=== PATIENT | male | born 1975 | race Caucasian/White ===

== ENCOUNTER 2021-04-10 14:10 | Emergency (ER) | payer SELFPAY ==
[2021-04-10 14:20] VITALS: BP 135/82; PULSE 99; RESP 16; TEMP 36.7; O2SAT 98; BMI 38.7
== END 2021-04-10 16:00 | disposition left against medical advice (07) ==
PROVIDERS: Emergency Provider Emergency Medicine
DX: T78.40XA Allergy, unspecified, initial encounter (principal); X58.XXXA Exposure to other specified factors, initial encounter
CPT/HCPCS: 99281; 99282

== ENCOUNTER 2023-03-14 18:47 | Outpatient (REF) | payer OTHER, SELFPAY ==
--- NOTE | ~2023-03-14 | MR_ITS ---
EXAMINATION: MR WRIST WITHOUT CONTRAST, RIGHT CLINICAL INFORMATION: Right wrist pain. COMPARISON: None available. TECHNIQUE: MRI of the wrist was performed using routine sequences on a high-field scanner. FINDINGS: TRIANGULAR FIBROCARTILAGE: Intact. INTRINSIC LIGAMENTS: Intact. TENDONS/MEDIAN NERVE: Intact. ARTICULAR CARTILAGE/BONE: No acute fracture or dislocation. 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 No evidence of avascular necrosis. Intact articular cartilage. No concerning lytic or blastic osseous lesion. JOINT FLUID/SOFT TISSUES: No significant joint effusion. No abnormal soft tissue mass or fluid collection. 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 Otherwise unremarkable examination.
== END 2023-03-14 18:48 | disposition home or self-care (01) ==
LOC: HO.MRI 18:47
PROVIDERS: PCP Nurse Practitioner Family; Visit Provider Nurse Practitioner Family
DX: M25.531 Pain in right wrist (principal)
CPT/HCPCS: 73221

== ENCOUNTER 2023-07-25 10:08 | Outpatient (REF) | payer OTHER, SELFPAY ==
--- NOTE | 2023-07-25 10:12 | EMG_ITS ---
Right median and ulnar motor and sensory studies were performed. Right radial sensory study was performed and paraspinal muscles were tested with a needle. IMPRESSION: This is an unremarkable study with no evidence of median or ulnar neuropathy or radiculopathy. MD FOREST Casas/HERNAN / [id number]
== END 2023-07-25 10:09 | disposition home or self-care (01) ==
LOC: HO.NEURO 10:08
PROVIDERS: PCP Nurse Practitioner Family; Visit Provider Nurse Practitioner Family
DX: M79.621 Pain in right upper arm (principal)
CPT/HCPCS: 95886; 95909

== ENCOUNTER 2024-07-17 16:34 | Emergency (ER) | payer OTHER, SELFPAY ==
--- OUTSIDE RECORDS SUMMARY | 2024-07-17 16:37 | XMS_ITS | Continuity of Care Document ---
Author Name [facility] Organization [facility] Care Team Providers Care Assistant Health Educator Name Role Phone [facility] Unavailable Unavailable Problems Combined list of problems from Department of Defense and [facility] Affairs facilities. It does not include entries that were removed or entered in error. Problem Status Onset Date Problem Type Date of Resolution Comments Source Adjustment disorder with mixed emotional features Active Condition [facility] Adjustment reaction with mixed disturbance of emotion (SNOMED CT 83036518) Active Condition [facility] Alcohol Dependence * (ICD-9-CM 303.90/303.91) Active Condition Mar 18, 2006 Entered By: DILMA JARRELL Comment: In Remission [facility] Alcohol dependence syndrome (SNOMED CT 99076082) Active Condition [facility] Anxiety (SCT 13364920) Active Condition [facility] Asthma - currently active (SNOMED CT 063738715) Active Condition [place] Attention deficit hyperactivity disorder, predominantly inattentive type Active Condition [facility] Attn Defic w/Hyperactiv. Active Condition [facility] Poon's esophagus Active Condition [facility] Depressive disorder Active Condition [facility] Family history of diabetes mellitus Active Condition [facility] Fatty liver Active Condition [facility] Gallbladder polyp Active Condition Au g 2022 Entered By: ILDA HANSON Comment: repeat abdominal u/s March 2024 [facility] Gastroesophageal reflux disease Active Condition [facility] GERD - Gastro-Esophageal Reflux Disease (SCT 956033509) Active Condition [facility] GERD * (ICD-9-CM 530.81) Active Condition [facility] Hyperlipidemia Active Condition [facility] Hyperlipidemia (SCT 22092231) Active Condition [facility] Hyperlipidemia (SNOMED CT 93266798) Active Condition [place] Hyperlipidemia (SNOMED CT 71534936) Active Condition Apr 12, 2005 Entered By: CAITLYN JENKINS Comment: labs of 08/09 [place] INSOMNIA, unspecified (ICD-9-CM 780.52) Active Condition [facility] Major Depression, recurrent (ICD-9-CM 296.30) Active Condition [facility] Mild depression (SNOMED CT 330001662) Active Condition [facility] Ring's metatarsalgia, neuralgia, or neuroma Active Condition [facility] Obesity (SNOMED CT 957218328) Active Condition [place] Other and unspecified alcohol dependence, in remission (ICD-9-CM 303.93) Active Condition [facility] Overweight Active Condition [facility] Pain in right arm Active Condition [facility] Sleep apnea Active Condition [facility] Verruca Active Condition [facility] Cannabis dependence, episodic use Inactive Condition 01/19/2010 [facility] Leukocytosis Inactive Condition 08/10/2005Apr Entered By: CAITLYN JENKINS Comment: WBC = 19K on 04/12/05 [place] Other and unspecified alcohol dependence, episodic drinking behavior Inactive Condition 07/11/2010 [facility] Diagnosis: ICD-10-CM L60.0 Ingrowing nail Active Diagnosis [facility] Diagnosis: ICD-10-CM F90.0 Attn-defct hyperactivity disorder, predom inattentive type Active Diagnosis [facility] Diagnosis: ICD-10-CM L60.3 Nail dystrophy Active Diagnosis [facility] Diagnosis: ICD-10-CM R10.30 Lower abdominal pain, unspecified Active Diagnosis [facility] Diagnosis: ICD-10-CM D18.01 Hemangioma of skin and subcutaneous tissue Active Diagnosis [facility] Diagnosis: ICD-10-CM D48.5 Neoplasm of uncertain behavior of skin Active Diagnosis [facility] Diagnosis: ICD-10-CM Z71.89 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ed counseling Active Diagnosis [facility] Diagnosis: ICD-10-CM J06.9 Acute upper respiratory infection, unspecified Active Diagnosis [facility] Diagnosis: ICD-10-CM K21.9 Gastro-esophageal reflux disease without esophagitis Active Diagnosis [facility] Diagnosis: ICD-10-CM G47.33 Obstructive sleep apnea (adult) (pediatric) Active Diagnosis [facility] Diagnosis: ICD-10-CM K11.21 Acute sialoadenitis Active Diagnosis [facility] Diagnosis: ICD-10-CM F41.9 Anxiety disorder, unspecified Active Diagnosis [facility] Diagnosis: ICD-10-CM M79.601 Pain in right arm Active Diagnosis [facility] Diagnosis: ICD-10-CM Z04.9 Encounter for examination and observation for unsp reason Active Diagnosis [facility] Diagnosis: ICD-10-CM M77.41 Metatarsalgia, right foot Active Diagnosis [facility] Diagnosis: ICD-10-CM L71.8 Other rosacea Active Diagnosis [facility] Diagnosis: ICD-10-CM H01.004 Unspecified blepharitis left upper eyelid Active Diagnosis [facility] Diagnosis: ICD-10-CM Z46.0 Encounter for fit/adjst of spectacles and contact lenses Active Diagnosis [facility] Diagnosis: ICD-10-CM K22.70 Poon's esophagus without dysplasia Active Diagnosis [facility] Diagnosis: ICD-10-CM S66.911S Strain of unsp musc/fasc/tend at wrs/hnd lv, r hand, sequela Active Diagnosis [facility] Diagnosis: ICD-10-CM S66.911A Strain of unsp musc/fasc/tend at wrs/hnd lv, r hand, init Active Diagnosis [facility] [place] [facility] Diagnosis: ICD-10-CM J01.90 Acute sinusitis, unspecified Active Diagnosis [facility] Diagnosis: ICD-10-CM H52.223 Regular astigmatism, bilateral Active Diagnosis [facility] Diagnosis: ICD-10-CM Z56.0 Unemployment, unspecified Active Diagnosis [facility] ([id number]) Diagnosis: ICD-10-CM M25.521 Pain in right elbow Active Diagnosis [facility] [facility] Medications Combined list of outpatient medications from Department of Defense and Veterans Affairs facilities.Medications provided include 1) outpatient medications from the last 15 months, and 2) patient-reported medications. Medication Details Route Status Patient Instructions Prescription Expires Prescription Number Last Dispense Date Ordering Provider Order Date Order Qty Source AMOXICILLIN TRIHYDRATE 875MG/CLAVU LANATE K 125MG TAB TAKE 1 TABLET BY MOUTH TWICE DAILY FOR INFECTIO N ORAL 02/20/2024 [id number] MACHELLE DAVID 2023 20 [facility] AZELASTINE HCL 137MCG/SPRA Y INHL,NASAL, 30ML SPRAY 1 SPRAY INTO EACH NOSTRIL ONCE DAILY FOR SEASONAL RUNNY NOSE NASAL ACTIVE 01/01/2025 [id number] 4 LORETTA HANSON 2023 1 [facility] AZELASTINE HCL 137MCG/SPRA Y INHL,NASAL, 30ML SPRAY 1 SPRAY INTO EACH NOSTRIL ONCE DAILY FOR SEASONAL RUNNY NOSE NASAL DISCONT INUED 05/27/2024 [id number] MACHELLE DAVID 2022 1 [facility] AZITHROMYCI N 250MG TAB TAKE TWO TABLETS BY MOUTH ONCE DAILY FOR 1 DAY, THEN TAKE ONE TABLET ONCE DAILY FOR 4 DAYS ORAL 06/26/2023 [id number] 3 MACHELLE DAVID 2022 6 [facility] BUSPIRONE HCL 5MG TAB TAKE ONE-HALF TABLET BY MOUTH ONCE DAILY ORAL DISCONT INUED BY PROVIDE R 09/05/2024 [id number] 4 MATT GALVAN 2023 [facility] CETIRIZINE HCL 10MG TAB TAKE ONE TABLET BY MOUTH ONCE DAILY FOR ALLERGIE S ORAL 03/31/2024 [id number] 4 [facility]ANSON 2023 [facility] CETIRIZINE HCL 10MG TAB TAKE ONE TABLET BY MOUTH ONCE DAILY FOR ALLERGIE S ORAL 08/25/2023 [id number] 3 MACHELLE DAVID [address] [facility] CHOLECALCIF ARAM 50MCG (2,000UNIT) TAB TAKE ONE TABLET BY MOUTH ONCE DAILY FOR VITAMIN SUPPLEME NTATION ORAL 06/21/2024 [id number] 4 LORETTA HANSON [address] [address] [facility] DEXAMETHASO NE 0.1%/TOBRAM YCIN 0.3% OINT,OPH APPLY SMALL AMOUNT INTO THE LEFT EYE AT BEDTIME OPHTHA LMIC 12/26/2023 [id number] Sherwin MICHAELS [address] [facility] DEXTROMETHO RPHAN HBR 10MG/GUAIFE NESIN 100MG/5ML (AF & SF) LIQUID TAKE 5 MLS BY MOUTH EVERY 6 HOURS NEEDED FOR COUGH ORAL ACTIVE 04/30/2025 [id number] 4 MACHELLE DAVID [address] [facility] ESCITALOPRA M OXALATE 5MG TAB TAKE ONE-HALF TABLET BY MOUTH ONCE DAILY FOR 14 DAYS, THEN TAKE ONE TABLET ONCE DAILY FOR MOOD/DEP RESSION ORAL DISCONT INUED BY PROVIDE R 10/17/2023 [id number] 4 MATT GALVAN 2023 38 [facility] GUAIFENESIN 200MG TAB TAKE ONE TABLET BY MOUTH EVERY 4 HOURS NEEDED FOR CONGESTI ON ORAL 06/26/2023 [id number] 3 MACHELLE DAVID AKIKO GROSS [address] [facility] [facility] OMEPRAZOLE 20MG CAP,EC TAKE ONE CAPSULE BY MOUTH ONCE DAILY ORAL ACTIVE 11/08/2024 [id number] 4 LORETTA HANSON [address] [facility] OMEPRAZOLE 20MG CAP,EC TAKE ONE CAPSULE BY MOUTH ONCE DAILY ORAL DISCONT INUED 09/04/2023 [id number] 4 LORETTA HANSON [address] [address] [facility] OTHER CAP/TAB TAKE RACHANA WORKZ MUSHROOM COMPLEX BY MOUTH ONCE DAILY ORAL ACTIVE RAGUINMATT BAZZI D [address] [address] [facility] PROBIOTIC (CULTURELLE DIGESTIVE DAILY) CAP/TAB TAKE BY MOUTH ONCE DAILY ORAL ACTIVE MATT GALVAN D [address] [address] [facility] TAMSULOSIN HCL 0.4MG CAP TAKE ONE CAPSULE BY MOUTH ONCE DAILY FOR 10 DAYS ORAL 06/02/2024 [id number] ZEFERINO DING 2023 10 [facility] Allergies, Adverse Reactions, Alerts Combined list of allergies from Department of Defense and Veterans Affairs facilities. It does not include entries that were removed or entered in error. Substance Category Reaction Severity Reaction type Status Date Reported Comments Source CHICKEN Propensity to adverse reactions to food (finding) active 12/29/2020 [facility] EGGS Propensity to adverse reactions to substance (finding) active 12/29/2020 [facility] SHRIMP Propensity to adverse reactions to food (finding) Anxiety, Urticaria, Eruption MODERATE active 05/15/2021 [facility] Immunizations Combined list of available immunizations from the Department of Defense and Veterans Affairs facilities. Immunization Series Date Given Administered By Site Reaction Lot Number CVX Code Drug Environmental Journalist Status Comments Source INFLUENZA, INJECTABLE, QUADRIVALENT, PRESERVATIVE FREE 2023 GIANCARLO CHAMORRO LEFT DELTO ID [id number] A 150 complet ed [facility] HEP A-HEP B 2 2022 GIANCARLO CHAMORRO LEFT DELTO ID [id number] 104 complet ed [facility] HEP A-HEP B 1 2022 IGOR GRACIA HY E RIGHT DELTO ID [id number] 104 complet ed [facility] PNEUMOCOCCAL CONJUGATE PCV20, POLYSACCHARID E [id number] CONJUGATE, ADJUVANT, PF 2022 IGOR GRACIA HY E LEFT DELTO ID [id number] 216 complet ed [facility] INFLUENZA, INJECTABLE, QUADRIVALENT, PRESERVATIVE FREE 2021 ASHUTOSH RIVERA RIGHT DELTO ID [id number] 150 complet ed [facility] COVID-19 (MODERNA), MRNA, LNP-S, BIVALENT BOOSTER, PF, 50 MCG/0.5 ML OR 25MCG/0.25 ML DOSE 1 2021 229 complet ed MOD; [id number]; 3 [facility] PNEUMOCOCCAL POLYSACCHARID E [id number] 2021 33 complet ed [place] COVID-19 (MODERNA), MRNA, LNP-S, PF, 100 MCG OR 50 MCG DOSE 3 2020 207 complet ed [facility] COVID-19 (MODERNA), MRNA, LNP-S, PF, 100 MCG/0.5 ML DOSE 2 2020 207 complet ed MOD; [id number]; 1 [place] COVID-19 (MODERNA), MRNA, LNP-S, PF, 100 MCG/0.5 ML DOSE 1 2020 207 complet ed MOD; [id number]; 1 [place] TDAP 2018 NONE 115 complet ed [place] FLU,3 YRS (HISTORICAL) 2005 88 complet ed [facility] DOMIC[facility] I[facility] TD(ADULT) UNSPECIFIED FORMULATION 2005 139 complet ed [facility] PNEUMOCOCCAL REFUSED (HISTORICAL) 1999 complet ed TETANUS GIVEN 95 [place] TD(ADULT) UNSPECIFIED FORMULATION 1994 139 complet ed [facility] Results Combined list of recent chemistry, hematology and other laboratory results from Department of Defense and Veterans Affairs, ranging from 15 months to all on record, depending upon the facility. Order Name Results Value Reference Range Date Interpretation Specimen Comments Source CT/GC DNA PANEL(IN -HOUSE) NEISSERIA GONORRHOEA E DNA [PRESENCE] IN URINE BY ABELARDO WITH PROBE DETECTION NOT DETECTED 06/05 Specimen Type: URINE Comment: Test performed on the REMOTV Genexpert. A negative test results does not exclude the possibility of infection because results may be affected by improper specimen collection, concurrent antibiotic therapy, or the number of organisms in the specimen which may be below the sensitivity of the test. Ordering Provider: ILDA HANSON Report Released Date/Time: Jun 05, 2024 02:02 PM Reporting Lab: [address] [address] Performing Lab: [address] [address] [facility] CT/GC DNA PANEL(IN -HOUSE) CHLAMYDIA TRACHOMATI S DNA [PRESENCE] IN URINE BY ABELARDO WITH PROBE DETECTION NOT DETECTED 06/05 Specimen Type: URINE Comment: Test performed on the REMOTV Genexpert. A negative test results does not exclude the possibility of infection because results may be affected by improper specimen collection, concurrent antibiotic therapy, or the number of organisms in the specimen which may be below the sensitivity of the test. Ordering Provider: ILDA HANSON Report Released Date/Time: Jun 05, 2024 02:02 PM Reporting Lab: [address] [address] Performing Lab: [address] [address] [facility] [employer] PIC AUTOMATE D, URINE LEUKOCYTES [#/AREA] IN URINE SEDIMENT BY MICROSCOPY HIGH POWER FIELD 0-5/[HPF ] 0 - 5 06/05 Specimen Type: URINE Comment: If Glucose = >500 and Ketones are positive, please alert the Physician. Ordering Provider: ILDA HANSON Report Released Date/Time: Jun 05, 2024 02:02 PM Reporting Lab: [facility] [address] [facility] [address] Performing Lab: [facility] [address] [facility] [address] [facility]ITALRDEKALB [facility] CENTERN [facility]ENTERUSE [facility] MICROSCO PIC AUTOMATE D, URINE MUCUS [#/AREA] IN URINE SEDIMENT BY MICROSCOPY LOW POWER FIELD FEW/[LPF ] 06/05 Specimen Type: URINE Comment: If Glucose = >500 and Ketones are positive, please alert the Physician. Ordering Provider: ILDA HANSON Report Released Date/Time: Jun 05, 2024 02:02 PM Reporting Lab: [facility] [place] [facility] [address] [facility] [address] Performing Lab: [facility] [place] [facility] [address] [facility] [address] [facility]ITALRCL[facility] HOSPITALTRN [place] [facility] [employer] PIC AUTOMATE D, URINE ERYTHROCYT ES [#/AREA] IN URINE SEDIMENT BY MICROSCOPY HIGH POWER FIELD 11-20/[H PF] 0 - 3 06/05 H Specimen Type: URINE Comment: If Glucose = >500 and Ketones are positive, please alert the Physician. Ordering Provider: ILDA HANSON Report Released Date/Time: Jun 05, 2024 02:02 PM Reporting Lab: [facility] [place] [facility] [address] [facility] [address] Performing Lab: [facility]ITALRCLAY COUNTY HOSPITALTRN [facility] CENTERUSE[address] [address] [facility]OSPITALRDEKALB REGIONAL MEDICAL CENTERN [facility] CENTERUSE [facility] URINALYS IS CLEAN CATCH COLOR OF URINE Light-Ye llow 06/05 Specimen Type: URINE Comment: If Glucose = >500 and Ketones are positive, please alert the Physician. Ordering Provider: ILDA HANSON Report Released Date/Time: Jun 05, 2024 02:02 PM Reporting Lab: [facility] [address] [facility] [address] Performing Lab: [facility] [address] [facility] [address] [facility] URINALYS IS CLEAN CATCH APPEARANCE OF URINE Clear 06/05 Specimen Type: URINE Comment: If Glucose = >500 and Ketones are positive, please alert the Physician. Ordering Provider: ILDA HANSON Report Released Date/Time: Jun 05, 2024 02:02 PM Reporting Lab: [facility] [address] [facility] [address] Performing Lab: [facility] [address] [facility] [address] [facility] URINALYS IS CLEAN CATCH GLUCOSE [MASS/VOLU ME] IN URINE Normalmg /dL 06/05 Specimen Type: URINE Comment: If Glucose = >500 and Ketones are positive, please alert the Physician. Ordering Provider: ILDA HANSON Report Released Date/Time: Jun 05, 2024 02:02 PM Reporting Lab: [facility] [address] [facility] [address] Performing Lab: [facility] [address] [facility] [address] [facility] URINALYS IS CLEAN CATCH KETONES [MASS/VOLU ME] IN URINE BY TEST STRIP NEGATIVE mg/dL 06/05 Specimen Type: URINE Comment: If Glucose = >500 and Ketones are positive, please alert the Physician. Ordering Provider: ILDA HANSON Report Released Date/Time: Jun 05, 2024 02:02 PM Reporting Lab: [facility] [address] [facility] [address] Performing Lab: [facility] [address] [facility] [address] [facility] URINALYS IS CLEAN CATCH ERYTHROCYT ES [PRESENCE] IN URINE SEDIMENT BY LIGHT MICROSCOPY SMALLmg/ dL 06/05 Specimen Type: URINE Comment: If Glucose = >500 and Ketones are positive, please alert the Physician. Ordering Provider: ILDA HANSON Report Released Date/Time: Jun 05, 2024 02:02 PM Reporting Lab: [facility]ITALRCL[facility]OSPITALTRN [place] [address] [address] Performing Lab: [facility]ITALRL [facility] [place] [facility] [address] [facility] [address] [facility]ITALRCL[facility]ITALTRN [place] [facility] URINALYS IS CLEAN CATCH PROTEIN [MASS/VOLU ME] IN URINE BY TEST STRIP NEGATIVE mg/dL 06/05 Specimen Type: URINE Comment: If Glucose = >500 and Ketones are positive, please alert the Physician. Ordering Provider: ILDA HANSON Report Released Date/Time: Jun 05, 2024 02:02 PM Reporting Lab: [facility]ITALRCL[facility]ITALTR[facility] [place] [address] [address] Performing Lab: [facility]ITALRL [facility] [place] [address] [address] [facility]OSPITALRL [facility]N [place] [facility] URINALYS IS CLEAN CATCH NITRITE [PRESENCE] IN URINE NEGATIVE mg/dL 06/05 Specimen Type: URINE Comment: If Glucose = >500 and Ketones are positive, please alert the Physician. Ordering Provider: ILDA HANSON Report Released Date/Time: Jun 05, 2024 02:02 PM Reporting Lab: [facility]ITALRL [facility] [place] [address] [address] Performing Lab: [facility]ITALRL [place] [address] [address] [facility]ITALRL [facility]N [place] [facility] URINALYS IS CLEAN CATCH BILIRUBIN. TOTAL [PRESENCE] IN URINE NEGATIVE mg/dL 06/05 Specimen Type: URINE Comment: If Glucose = >500 and Ketones are positive, please alert the Physician. Ordering Provider: ILDA HANSON Report Released Date/Time: Jun 05, 2024 02:02 PM Reporting Lab: [facility] [place] [facility] [address] [facility] [address] Performing Lab: [facility] [place] [facility] [address] [facility] [address] [facility] [place] [facility] URINALYS IS CLEAN CATCH SPECIFIC GRAVITY OF URINE BY REFRACTOME TRY 1.023 1.016 - 1.022 06/05 H Specimen Type: URINE Comment: If Glucose = >500 and Ketones are positive, please alert the Physician. Ordering Provider: ILDA HANSON Report Released Date/Time: Jun 05, 2024 02:02 PM Reporting Lab: [facility] [place] [facility] [address] [facility] [address] Performing Lab: [facility] [place] [facility] [address] [facility] [address] [facility]PITALRL W[facility]N [place] [facility] URINALYS IS CLEAN CATCH PH OF URINE BY TEST STRIP 5.5 5.0 - 9.0 06/05 Specimen Type: URINE Comment: If Glucose = >500 and Ketones are positive, please alert the Physician. Ordering Provider: ILDA HANSON Report Released Date/Time: Jun 05, 2024 02:02 PM Reporting Lab: [facility]ITALRL [facility] [place] [facility] [address] [facility] [address] Performing Lab: [facility] [place] [facility] [address] [facility] [address] [facility]ITALRL W[facility] [place] [facility] URINALYS IS CLEAN CATCH UROBILINOG EN [MASS/VOLU ME] IN URINE BY TEST STRIP Normalmg /dL <2.0 - 2.0 06/05 Specimen Type: URINE Comment: If Glucose = >500 and Ketones are positive, please alert the Physician. Ordering Provider: ILDA HANSON Report Released Date/Time: Jun 05, 2024 02:02 PM Reporting Lab: [facility]RL [facility] [place] [facility] [address] [facility] [address] Performing Lab: [facility] [place] [address] [address] [facility]ENTERUSE [facility] URINALYS IS CLEAN CATCH LEUKOCYTE ESTERASE [PRESENCE] IN URINE BY TEST STRIP NEGATIVE 06/05 Specimen Type: URINE Comment: If Glucose = >500 and Ketones are positive, please alert the Physician. Ordering Provider: ILDA HANSON Report Released Date/Time: Jun 05, 2024 02:02 PM Reporting Lab: [facility] CENTERUSE[address] [address] Performing Lab: [facility]ITALRCL[facility] HOSPITALTRN [facility]ICAL CENTERUSETS [address] [address] [facility] CENTERUSE [facility] LIPID PANEL, NON FASTING CHOLESTERO L [MASS/VOLU ME] IN SERUM OR PLASMA 209 mg/dL 02/11 H Specimen Type: SERUM No comment entered. Ordering Provider: ILDA HANSON Report Released Date/Time: Feb 10, 2024 03:34 PM Reporting Lab: [facility]ENTERUSE[address] [address] Performing Lab: [facility]ITALRCLAY COUNTY HOSPITALTRN [facility] MEDICAL CENTERUSETS [address] [address] [facility]ITALUSE [facility] LIPID PANEL, NON FASTING TRIGLYCERI DE [MASS/VOLU ME] IN SERUM OR PLASMA 121 mg/dL 0 - 150 02/11 Specimen Type: SERUM No comment entered. Ordering Provider: ILDA HANSON Report Released Date/Time: Feb 10, 2024 03:34 PM Reporting Lab: [facility]ITALRCL[facility] HOSPITALTRN [place] [address] [address] Performing Lab: [facility]ITALRCLAY COUNTY HOSPITALTRN [facility] CENTERUSETS [address] [address] [facility] CENTERUSE [facility] LIPID PANEL, NON FASTING CHOLESTERO L IN LDL [MASS/VOLU ME] IN SERUM OR PLASMA BY CALCULATIO N 151 mg/dL 0 - 129 02/11 H Specimen Type: SERUM No comment entered. Ordering Provider: ILDA HANSON Report Released Date/Time: Feb 10, 2024 03:34 PM Reporting Lab: [facility]ITALRL [facility] [place] [facility] [address] [facility] [address] Performing Lab: [facility] [place] [facility] [address] [facility] [address] [facility] [place] [facility] LIPID PANEL, NON FASTING CHOLESTERO L.TOTAL/CH OLESTEROL IN HDL [MASS RATIO] IN SERUM OR PLASMA 6.1 02/11 Specimen Type: SERUM No comment entered. Ordering Provider: ILDA HANSON Report Released Date/Time: Feb 10, 2024 03:34 PM Reporting Lab: [facility] [place] [facility] [address] [facility] [address] Performing Lab: [facility] [place] [facility] [address] [facility] [address] [facility]OS[facility]ITALRL TRN [facility] CENTERCHUSE [facility] LIPID PANEL, NON FASTING CHOLESTERO L IN HDL [MASS/VOLU ME] IN SERUM OR PLASMA 34 mg/dL 40 - 60 02/11 L Specimen Type: SERUM No comment entered. Ordering Provider: ILDA HANSON Report Released Date/Time: Feb 10, 2024 03:34 PM Reporting Lab: [facility]RL [place] [facility] [address] [facility] [address] Performing Lab: [facility] [place] [facility] [address] [facility] [address] [facility]ITALRL [facility] CENTERN [facility] CENTERUSE [facility] CBC LEUKOCYTES [#/VOLUME] IN BLOOD BY AUTOMATED COUNT 7.42 10*3/uL 4.50 - 11.00 02/11 Specimen Type: BLOOD No comment entered. Ordering Provider: ILDA HANSON Report Released Date/Time: Feb 10, 2024 03:34 PM Reporting Lab: [facility]ITALRL [place] [facility] [address] [facility] [address] Performing Lab: [facility] [place] [facility] [address] [facility] [address] [facility]OSPITALRL TRN [facility] CENTERCHUSE [facility] CBC ERYTHROCYT ES [#/VOLUME] IN BLOOD BY AUTOMATED COUNT 5.66 10*6/uL 4.23 - 5.66 02/11 Specimen Type: BLOOD No comment entered. Ordering Provider: ILDA HANSON Report Released Date/Time: Feb 10, 2024 03:34 PM Reporting Lab: [facility] [place] [facility] [address] [facility] [address] Performing Lab: [facility] [place] [facility] [address] [facility] [address] [facility] [place] [facility] CBC HEMOGLOBIN [MASS/VOLU ME] IN BLOOD 16.0 g/dL 12.8 - 17 02/11 Specimen Type: BLOOD No comment entered. Ordering Provider: ILDA HANSON Report Released Date/Time: Feb 10, 2024 03:34 PM Reporting Lab: [facility] [place] [facility] [address] [facility] [address] Performing Lab: [facility] [place] [facility] [address] [facility] [address] [facility] [place] [facility] CBC HEMATOCRIT [VOLUME FRACTION] OF BLOOD BY AUTOMATED COUNT 46.9 39.2 - 50.4 02/11 Specimen Type: BLOOD No comment entered. Ordering Provider: ILDA HANSON Report Released Date/Time: Feb 10, 2024 03:34 PM Reporting Lab: [facility] [place] [facility] [address] [facility] [address] Performing Lab: [facility] [place] [facility] [address] [facility] [address] [facility] [place] [facility] CBC MCV [ENTITIC VOLUME] BY AUTOMATED COUNT 82.9 fL 82 - 99 02/11 Specimen Type: BLOOD No comment entered. Ordering Provider: ILDA HANSON Report Released Date/Time: Feb 10, 2024 03:34 PM Reporting Lab: [facility] [place] [facility] [address] [facility] [address] Performing Lab: [facility] [place] [facility] [address] [facility] [address] [facility] [place] [facility] CBC MCHC [MASS/VOLU ME] BY AUTOMATED COUNT 34.1 g/dL 30.8 - 35.1 02/11 Specimen Type: BLOOD No comment entered. Ordering Provider: ILAD HANSON Report Released Date/Time: Feb 10, 2024 03:34 PM Reporting Lab: [facility] [place] [facility] [address] [facility] [address] Performing Lab: [facility] [place] [facility] [address] [facility] [address] [facility] [place] [facility] CBC PLATELETS [#/VOLUME] IN BLOOD BY AUTOMATED COUNT 223 10*3/uL 140 - 360 02/11 Specimen Type: BLOOD No comment entered. Ordering Provider: ILDA HANSON Report Released Date/Time: Feb 10, 2024 03:34 PM Reporting Lab: [facility] [place] [facility] [address] [facility] [address] Performing Lab: [facility] [place] [address] [address] [facility] [place] [facility] CBC ERYTHROCYT E DISTRIBUTI ON WIDTH [RATIO] BY AUTOMATED COUNT 12.7 12.0 - 16.0 02/11 Specimen Type: BLOOD No comment entered. Ordering Provider: ILDA HANSON Report Released Date/Time: Feb 10, 2024 03:34 PM Reporting Lab: [facility] [place] [facility] [address] [facility] [address] Performing Lab: [facility] [place] [facility] [address] [facility] [address] [facility] [place] [facility] CBC MCH [ENTITIC MASS] BY AUTOMATED COUNT 28.3 pg 26.2 - 32.6 02/11 Specimen Type: BLOOD No comment entered. Ordering Provider: ILDA HANSON Report Released Date/Time: Feb 10, 2024 03:34 PM Reporting Lab: [facility] [place] [facility] [address] [facility] [address] Performing Lab: [facility] [place] [address] [address] [facility] [place] [facility] BASIC METABOLI C PANEL (non-fas ting) UREA NITROGEN [MASS/VOLU ME] IN SERUM OR PLASMA 19 mg/dL 7 - 25 02/11 Specimen Type: SERUM No comment entered. Ordering Provider: ILDA HANSON Report Released Date/Time: Feb 10, 2024 03:34 PM Reporting Lab: [facility]OSPITALRDEKALB REGIONAL MEDICAL CENTERN [address] [address] Performing Lab: [facility]PITALRDEKALB [facility] CENTERN [address] [address] [facility]PITALRDEKALB REGIONAL MEDICAL CENTERN [facility] BASIC METABOLI C PANEL (non-fas ting) GLUCOSE [MASS/VOLU ME] IN SERUM OR PLASMA 92 mg/dL 65 - 100 02/11 Specimen Type: SERUM No comment entered. Ordering Provider: ILDA HANSON Report Released Date/Time: Feb 10, 2024 03:34 PM Reporting Lab: [facility]ITALR[address] [address] Performing Lab: [facility] HOSPITALRDEKALB REGIONAL MEDICAL CENTERN [address] [address] [facility] BASIC METABOLI C PANEL (non-fas ting) SODIUM [MOLES/VOL UME] IN SERUM OR PLASMA 139 mmol/L 135 - 145 02/11 Specimen Type: SERUM No comment entered. Ordering Provider: ILDA HANSON Report Released Date/Time: Feb 10, 2024 03:34 PM Reporting Lab: [facility]OSPITALRL TRN [facility] CENTERUSE[address] [address] Performing Lab: [facility]OS[facility]ITALRL TRN [facility] CENTERUSE[address] [address] [facility]OSPITALRDEKALB REGIONAL MEDICAL CENTERN [facility] BASIC METABOLI C PANEL (non-fas ting) POTASSIUM [MOLES/VOL UME] IN SERUM OR PLASMA 4.1 mmol/L 3.5 - 5.0 02/11 Specimen Type: SERUM No comment entered. Ordering Provider: ILDA HANSON Report Released Date/Time: Feb 10, 2024 03:34 PM Reporting Lab: [facility] [place] [place] [facility] [address] [facility] [address] Performing Lab: [facility] [place] [facility] [address] [facility] [address] [facility] [place] [place] [facility] BASIC METABOLI C PANEL (non-fas ting) CHLORIDE [MOLES/VOL UME] IN SERUM OR PLASMA 106 mmol/L 100 - 110 02/11 Specimen Type: SERUM No comment entered. Ordering Provider: ILDA HANSON Report Released Date/Time: Feb 10, 2024 03:34 PM Reporting Lab: [facility] [place] [place] [address] [address] Performing Lab: [facility] [place] [place] [address] [address] [facility] [place] [facility] BASIC METABOLI C PANEL (non-fas ting) CARBON DIOXIDE, TOTAL [MOLES/VOL UME] IN SERUM OR PLASMA 22 meq/L 20 - 30 02/11 Specimen Type: SERUM No comment entered. Ordering Provider: ILDA HANSON Report Released Date/Time: Feb 10, 2024 03:34 PM Reporting Lab: [facility]ITALRL [place] [address] [address] Performing Lab: [facility] [facility] [place] [address] [address] [facility]ITALRL [facility] [place] [facility] BASIC METABOLI C PANEL (non-fas ting) CREATININE [MASS/VOLU ME] IN SERUM OR PLASMA 0.99 mg/dL 0.50 - 1.40 02/11 Specimen Type: SERUM No comment entered. Ordering Provider: ILDA HANSON Report Released Date/Time: Feb 10, 2024 03:34 PM Reporting Lab: [facility] [place] [facility] [address] [facility] [address] Performing Lab: [facility] [place] [address] [address] [facility] [place] [facility] BASIC METABOLI C PANEL (non-fas ting) GLOMERULAR FILTRATION RATE/1.73 SQ M.PREDICTE D [VOLUME RATE/AREA] IN SERUM, PLASMA OR BLOOD BY CREATININE -BASED FORMULA (CKD-EPI 2020) >90mL/mi n 60 02/11 Specimen Type: SERUM No comment entered. Ordering Provider: ILDA HANSON Report Released Date/Time: Feb 10, 2024 03:34 PM Reporting Lab: [facility] [place] [address] [address] Performing Lab: [facility] [place] [place] [address] [address] [facility]ITALRL [facility] [place] [facility] LIVER FUNCTION PROTEIN [MASS/VOLU ME] IN SERUM OR PLASMA 6.8 g/dL 6.0 - 8.3 02/11 Specimen Type: SERUM No comment entered. Ordering Provider: ILDA HANSON Report Released Date/Time: Feb 10, 2024 03:34 PM Reporting Lab: [facility] [place] [address] [address] Performing Lab: [facility] [place] [address] [address] [facility]ITALRL [facility] [place] [facility] LIVER FUNCTION ALBUMIN [MASS/VOLU ME] IN SERUM OR PLASMA 4.0 g/dL 3.5 - 5.0 02/11 Specimen Type: SERUM No comment entered. Ordering Provider: ILAD HANSON Report Released Date/Time: Feb 10, 2024 03:34 PM Reporting Lab: [facility] [place] [address] [address] Performing Lab: [facility] [place] [address] [address] [facility]ITALRL [facility] [place] [facility] LIVER FUNCTION ALKALINE PHOSPHATAS E [ENZYMATIC ACTIVITY/V OLUME] IN SERUM OR PLASMA 68 U/L 40 - 150 02/11 Specimen Type: SERUM No comment entered. Ordering Provider: ILDA HANSON Report Released Date/Time: Feb 10, 2024 03:34 PM Reporting Lab: [facility] [place] [place] [address] [place] [address] Performing Lab[facility] [place] [facility] [address] [facility] [address] [facility] [place] [facility] LIVER FUNCTION ASPARTATE AMINOTRANS FERASE [ENZYMATIC ACTIVITY/V OLUME] IN SERUM OR PLASMA 20 U/L 5 - 34 02/11 Specimen Type: SERUM No comment entered. Ordering Provider: ILDA HANSON Report Released Date/Time: Feb 10, 2024 03:34 PM Reporting Lab: [facility] [place] [facility] [address] [facility] [address] Performing Lab: [facility] [place] [facility] [address] [facility] [address] [facility]PITALRL WSTRN [place] [facility] LIVER FUNCTION ALANINE AMINOTRANS FERASE [ENZYMATIC ACTIVITY/V OLUME] IN SERUM OR PLASMA 39 U/L 02/11 Specimen Type: SERUM No comment entered. Ordering Provider: ILDA HANSON Report Released Date/Time: Feb 10, 2024 03:34 PM Reporting Lab: [facility] [place] [facility] [address] [facility] [address] Performing Lab: [facility] [place] [facility] [address] [facility] [address] [facility]OSPITALRL WSTRN [facility]CHUSE [facility] LIVER FUNCTION BILIRUBIN. TOTAL [MASS/VOLU ME] IN SERUM OR PLASMA 0.8 mg/dL 0.2 - 1.2 02/11 Specimen Type: SERUM No comment entered. Ordering Provider: ILDA HANSON Report Released Date/Time: Feb 10, 2024 03:34 PM Reporting Lab: [facility] [place] [facility] [address] [facility] [address] Performing Lab: [facility] [place] [facility] [address] [facility] [address] [facility]OSPITALRL WSTRN [facility]ENTERUSE [facility] THYROID T4 FREE(FT4 ) THYROXINE (T4) FREE [MASS/VOLU ME] IN SERUM OR PLASMA 0.98 ng/dL 0.6 - 1.6 08/26 Specimen Type: SERUM No comment entered. Ordering Provider: ILDA HANSON Report Released Date/Time: Aug 13, 2023 02:31 PM Reporting Lab: [facility]ITALRL [place]N [place] [facility] [address] [facility] [address] Performing Lab: [facility] [place] [facility] [address] [facility] [address] [facility] [place] [place] [facility] HEMOGLOB IN A1C PANEL HEMOGLOBIN A1C/HEMOGL OBIN.TOTAL IN BLOOD BY HPLC 5.0 4.0 - 5.6 08/26 Specimen Type: BLOOD Comment: Values obtained from A1C measurement s can vary. For atypical A1C assays, a reported value of 7.0 could actually be between 6.72 and 7.28 if measured by a reference method. A reported value of 9.0 could actually be between 8.73 and 9.27. Ref: http://www. ngsp.org/[place] Pdata.asp Ordering Provider: ILDA HANSON Report Released Date/Time: Aug 13, 2023 02:31 PM Reporting Lab: [facility]ITALRL [place] [place] [facility] [address] [facility] [address] Performing Lab: [facility]OSPITALRCLAY COUNTY HOSPITALTRN [facility] CENTERUSETS [facility] [address] [facility] [address] [facility] HOSPITALRDEKALB REGIONAL MEDICAL CENTERN [place] [facility] Vital Signs Combined list of inpatient and outpatient Vital Signs from Department of Defense and Veterans Affairs, ranging from 12 months to all on record, depending upon the facility. Vital Sign Value Date Comments Source SYSTOLIC BLOOD PRESSURE 126 06/26/20 24 09:06:55 [facility] [place] [facility] DIASTOLIC BLOOD PRESSURE 82 024 09:06:55 [facility] [place] [facility] PULSE OXIMETRY 96 06/26/2024 09:06:55 [facility] [place] [facility] PAIN 1 06/26/2024 09:06:55 [facility] [place] [facility] TEMPERATURE 98.4 06/26/2024 09:06:55 [facility] [place] [facility] PULSE 80 06/26/2024 09:06:55 [facility] [place] [facility] RESPIRATION 18 06/26/2024 09:06:55 [facility] [place] [facility] SYSTOLIC BLOOD PRESSURE 131 06/05/20 13:52:56 [facility] [place] [facility] DIASTOLIC BLOOD PRESSURE 82 024 13:52:56 [facility] [place] [facility] PULSE OXIMETRY 96 06/05/2024 13:52:56 [facility] [place] [facility] WEIGHT 244 06/05/2024 13:52:56 [facility] [place] [facility] BMI 39kg/m2 06/05/2024 13:52:56 [facility] [place] [facility] PAIN 2 06/05/2024 13:52:56 [facility] [place] [facility] HEIGHT 66 06/05/2024 13:52:56 [facility] [place] [facility] TEMPERATURE 98.3 06/05/2024 13:52:56 [facility] [place] [facility] PULSE 91 06/05/2024 13:52:56 [facility] [place] [facility] RESPIRATION 20 06/05/2024 13:52:56 [facility] [place] [facility] SYSTOLIC BLOOD PRESSURE 123 05/29/20 14:30:46 [facility] [place] [facility] DIASTOLIC BLOOD PRESSURE 87 024 14:30:46 [facility] [place] [facility] PULSE OXIMETRY 97 05/29/2024 14:30:46 [facility] [place] [facility] PAIN 0 05/29/2024 14:30:46 [facility] [place] [facility] TEMPERATURE 98.5 05/29/2024 14:30:46 [facility] [place] [facility] PULSE 96 05/29/2024 14:30:46 [facility] [place] [facility] RESPIRATION 18 05/29/2024 14:30:46 [facility] [place] [facility] SYSTOLIC BLOOD PRESSURE 128 05/22/20 24 13:48:31 [facility] [place] [facility] DIASTOLIC BLOOD PRESSURE 78 024 13:48:31 [facility] [place] [facility] PULSE OXIMETRY 97 05/22/2024 13:48:31 [facility] WEIGHT 238.4 05/22/2024 13:48:31 [facility] [place] BMI 39kg/m2 05/22/2024 13:48:31 [facility] [place] [facility] PAIN 0 05/22/2024 13:48:31 [facility] [place] [facility] TEMPERATURE 98.6 05/22/2024 13:48:31 [facility] [place] [facility] PULSE 81 05/22/2024 13:48:31 [facility] [place] [facility] RESPIRATION 18 05/22/2024 13:48:31 [facility] [place] [facility] SYSTOLIC BLOOD PRESSURE 118 04/29/20 24 13:23:55 [facility] [place] [facility] DIASTOLIC BLOOD PRESSURE 86 024 13:23:55 [facility] [place] [facility] PAIN 2 04/29/2024 13:23:55 [facility] [place] [facility] TEMPERATURE 98.2 04/29/2024 13:23:55 [facility] [place] [facility] PULSE 77 04/29/2024 13:23:55 [facility] [place] [facility] RESPIRATION 16 04/29/2024 13:23:55 [facility] [place] [facility] Encounters Combined list of: 1) Encounters from Department of Veterans Affairs facilities going back up to thelast 18 months. 2) Encounters from the Department of Defense facilities going back up to 280 months. Location Location Details Encounter Type Encounter Number Reason For Visit Attending Provider ADM Date DC Date Status Disposition Source [facility] INFRARED THERAPY [id number] Diagnos is: ICD-10- CM F41.9 Anxiety disorde r, unspeci fied
GAUNYA,CHR ISTOPHER M 01/15 [facility] En[facility] [id number] 01/15 [facility] ULTRASOUND THERAPY [id number] Diagnos is: ICD-10- CM M25.521 Pain in right elbow<b r/> MACHON,MARY LIE E 01/23 [facility] Outpatient Encounter [id number] 01/29 [facility] (6[facility]) COMMUNITY/ WORK REINTEGRAT ION [id number] Diagnos is: ICD-10- CM Z56.0 Unemplo yment, unspeci fied
Sherwin PEREZ A 02/01 [facility] Outpatient Encounter [id number] 02/06 [facility] [place] [facility] ULTRASOUND THERAPY [id number] Diagnos is: ICD-10- CM M79.601 Pain in right arm<br/ > SHARANMARY LIE E 02/06 [facility] Outpatient Encounter [id number] 02/11 [facility] [place] [facility] (6[facility]) COMMUNITY/ WORK REINTEGRAT ION [id number] Diagnos is: ICD-10- CM Z56.0 Unemplo yment, unspeci fied
Sherwin PEREZ A 02/12 [facility] En[facility] [id number] 02/14 [facility] OFFICE O/P EST LOW 20-29 MIN [id number] Diagnos is: ICD-10- CM M79.601 Pain in right arm<br/ > Krysten HANSON ILLIAM J 02/21 [facility] PSYTX W PT 30 MINUTES [id number] Diagnos is: ICD-10- CM F41.9 Anxiety disorde r, unspeci fied
PEGGY RAHMAN ON A 02/28 [facility] En[facility] [id number] 02/28 [facility] En[facility] [id number] 03/14 [facility] Outpatient Encounter [id number] 03/20 [facility] ([id number]) COMMUNITY/ WORK REINTEGRAT ION [id number] Diagnos is: ICD-10- CM Z56.0 Unemplo yment, unspeci fied
ANAM ICHAEL A 03/27 [facility] ([id number]) [facility] MANUAL THERAPY 1/> REGIONS [id number] Diagnos is: ICD-10- CM M79.601 Pain in right arm<br/ > MARY TSANG LIE E 04/02 [facility] ULTRASOUND THERAPY [id number] Diagnos is: ICD-10- CM M79.601 Pain in right arm<br/ > MARY TSANG E 04/24 [facility] Out[facility] Encounter [id number] 05/03 [facility] Out[facility] Encounter [id number] 05/03 [facility] ULTRASOUND THERAPY [id number] Diagnos is: ICD-10- CM M79.601 Pain in right arm<br/ > MARY TSANG E 05/06 [facility] Out[facility] Encounter [id number] 05/07 [facility] Out[facility] Encounter [id number] 05/08 [facility] EYE EXAM&TX ESTAB PT 1/>VST [id number] Diagnos is: ICD-10- CM 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
MERHAR,VANESSA H B 05/09 [facility] FIT SPECTACLES MULTIFOCAL [id number] Diagnos is: ICD-10- CM Z46.0 Encount er for fit/adj st of spectac les and contact lenses< br/> PUSHPA CHOWDHURY 05/10 [facility] ULTRASOUND THERAPY [id number] Diagnos is: ICD-10- CM M79.601 Pain in right arm<br/ > MARY TSANG LIE E 05/21 [facility] OFF/OP EST MAY X REQ PHY/QHP [id number] Diagnos is: ICD-10- CM 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
FRANKIESTEVE NatySamantha WALKERRENATO 05/27 [facility] REPAIR & ADJUST SPECTACLES [id number] Diagnos is: ICD-10- CM Z46.0 Encount er for fit/adj st of spectac les and contact lenses< br/> PAMELA SANTOS 05/31 [facility] ULTRASOUND THERAPY [id number] Diagnos is: ICD-10- CM M79.601 Pain in right arm<br/ > MARY TSANG LIE E 06/06 [facility] Out[facility] Encounter [id number] 06/19 [facility] Out[facility] Encounter [id number] 06/21 [facility] TUBING WITH HEATING ELEMENT [id number] Diagnos is: ICD-10- CM G47.33 Obstruc tive sleep apnea (adult) (pediat chris)
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
STEVE DAVID 07/12 [facility] SELF-HELP/ PEER SVC PER 15MIN 52898-5.63 [id number] Diagnos is: ICD-10- CM 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 tivity disorde r, predom inatten tive type
ADI GE 07/15 [facility] En[facility] [id number] 07/25 [facility] OT EVAL LOW COMPLEX 30 MIN [id number] [id number] Diagnos is: ICD-10- CM S66.911 S Strain of unsp musc/fa sc/tend at wrs/hnd lv, r hand, sequela
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
Krysten HANSON J 08/26 [facility] OFFICE O/P NEW SF 15 MIN 75988-5.63 [id number] Diagnos is: ICD-10- CM M77.41 Metatar salgia, right foot
Brian PERDUE AVID 08/27 [facility] Outpatient Encounter [id number] 08/28 [facility] PSYTX W PT 30 MINUTES [id number] [id number] Diagnos is: ICD-10- CM 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 tivity disorde r, predom inatten tive type
PEGGY RAHMAN ON A 08/30 [facility] MTMS BY PHARM ADDL 15 MIN [id number] [id number] Diagnos is: ICD-10- CM F41.9 Anxiety disorde r, unspeci fied
MATT GALVAN 09/02 [facility] MTMS BY PHARM ADDL 15 MIN [id number] [id number] Diagnos is: ICD-10- CM F41.9 Anxiety disorde r, unspeci fied
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<br/ > LENTRICIA,ESVIN 11/05 [facility] Outpatient Encounter [id number] INGRID CHAMORRO 11/07 [facility] Outpatient Encounter [id number] INGRID CHAMORRO 11/11 [facility] Outpatient Encounter [id number] 11/20 [facility] Outpatient Encounter [id number] 11/20 [facility] Outpatient Encounter [id number] 11/21 [facility] OFF/OP EST MAY X REQ PHY/QHP 27837-7.63 [id number] Diagnos is: ICD-10- CM 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
BRANDOMAIE 11/25 [facility] Outpatient Encounter [id number] 11/28 [facility] THERAPEUTI C EXERCISES [id number] [id number] Diagnos is: ICD-10- CM M79.601 Pain in right arm<br/ > MACHON,MARY LIE E 12/02 [facility] OFFICE O/P EST MOD 30 MIN 14495-9.63 [id number] Diagnos is: ICD-10- CM M77.41 Metatar salgia, right foot
TILA ESPOSITO D 12/04 [facility] THERAPEUTI C EXERCISES [id number] [id number] Diagnos is: ICD-10- CM M79.601 Pain in right arm<br/ > MARY TSANG LIE E 12/09 [facility] THERAPEUTI C EXERCISES [id number] [id number] Diagnos is: ICD-10- CM M79.601 Pain in right arm<br/ > MARY TSANG LIE E 12/16 [facility] THERAPEUTI C EXERCISES [id number] [id number] Diagnos is: ICD-10- CM M79.601 Pain in right arm<br/ > MARY TSANG LIE E 12/23 [facility] En[facility] [id number] INGRID CHAMORRO 12/24 [facility] En[facility] [id number] [id number] SUSY MALDONADOUS 12/24 [facility] OFF/OP EST DECEMBER X REQ PHY/QHP [id number] [id number] Diagnos is: ICD-10- CM Z04.9 Encount er for examina tion and observa tion for unsp reason< br/> Sherwin STREETER H 12/31 [facility] MANUAL THERAPY /> [place] [id number] [id number] Diagnos is: ICD-10- CM M79.601 Pain in right arm<br/ > MARY TSANG LIE E 01/06 [facility] MTMS BY PHARM ADDL 15 MIN [id number] [id number] Diagnos is: ICD-10- CM F41.9 Anxiety disorde r, unspeci fied
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<br/ > INGRID CHAMORRO 01/20 [facility] Out[facility] Encounter [id number] [id number] 01/20 [facility] OFFICE O/P EST LOW 20 MIN [id number] [id number] Diagnos is: ICD-10- CM K11.21 Acute siaload enitis< br/> STEVE DAVID 01/20 [facility] Out[facility] Encounter [id number] [id number] 02/18 [facility] POS AIRWAY PRESSURE FILTER [id number] [id number] Diagnos is: ICD-10- CM G47.33 Obstruc tive sleep apnea (adult) (pediat chris)
ELY MARTI 02/23 [facility] En[facility] [id number] [id number] 04/24 [facility] Encounter [id number] 1.04/24 [facility] OFFICE O/P EST LOW 20 MIN [id number] [id number] Diagnos is: ICD-10- CM K21.9 Gastro- esophag eal reflux disease without esophag itis
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
STEVE DAVID 04/29 [facility] En[facility] [id number] [id number] 05/03 [facility] Out[facility] Encounter [id number] [id number] 05/04 [facility] Out[facility] Encounter [id number] [id number] 05/06 [facility] Out[facility] Encounter [id number] [id number] 05/06 [facility] Out[facility] Encounter [id number] 1.05/13 [facility] OFF/OP EST MAY X REQ PHY/QHP [id number] [id number] Diagnos is: ICD-10- CM 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<br/ > CIARADIRKINGRID JOHNSTON 05/13 [facility] Out[facility] Encounter [id number] 1.05/15 [facility] Out[facility] Encounter [id number] 1.05/15 [facility] Out[facility] Encounter [id number] 1.05/19 [facility] Out[facility] Encounter [id number] 1.05/22 [facility] OFF/OP CNSLTJ NEW/EST LOW 30 [id number] [id number] Diagnos is: ICD-10- CM D18.01 Hemangi ghassan of skin and subcuta neous tissue< br/> GO,CAITIE S 05/22 [facility] INTMD RPR S/A/T/EXT 2.5 CM/< [id number] [id number] Diagnos is: ICD-10- CM D48.5 Neoplas m of uncerta in behavio r of skin
GO,CAITIE S 05/29 [facility] Out[facility] En[facility] [id number] 05/29 [facility] Out[facility] Encounter [id number] 05/29 [facility] Out[facility] Encounter [id number] [id number] MAGDALENA STOCKTON MD 06/02 [facility] POSTOP FOLLOW-UP VISIT [id number] [id number] Diagnos is: ICD-10- CM D18.01 Hemangi ghassan of skin and subcuta neous tissue< br/> CAITIE DONG 06/05 [facility] Out[facility] Encounter [id number] 06/05 [facility] Out[facility] Encounter [id number] 06/05 [facility] OFFICE O/P EST LOW 20 MIN [id number] [id number] Diagnos is: ICD-10- CM R10.30 Lower abdomin al pain, unspeci fied
Krysten HANSON 06/05 [facility] En[facility] [id number] 06/06 [facility] Outpatient Encounter [id number] 06/07 [facility] Out[facility] Encounter [id number] 06/11 [facility] OFFICE O/P EST LOW 20 MIN [id number] 1. Diagnos is: ICD-10- CM L60.3 Nail dystrop hy
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
MATT GALVAN 06/18 [facility] En[facility] [id number] 06/22 [facility] Out[facility] Encounter [id number] 06/22 [facility] QNHP OL DIG ASSMT&MGMT 06-24 [id number] 1. 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
CHAUDHARI,HECTOR 06/24 [facility] OFFICE O/P EST MOD 30 MIN [id number] [id number] Diagnos is: ICD-10- CM L60.0 Ingrowi ng nail
TILA ESPOSITO RLES D 06/26 [facility] Out[facility] Encounter [id number] 06/26 [facility] Outpatient Encounter [id number] 06/29 [facility] Outpatient Encounter [id number] 06/29 [facility] Outpatient Encounter [id number] 06/30 [facility] POSTOP FOLLOW-UP VISIT [id number] Diagnos is: ICD-10- CM L60.0 Ingrowi ng nail
TILA ESPOSITO D 07/13 [facility] Outpatient Encounter [id number] 07/15 [facility] Social History Combined list of available smoking, tobacco, and other social history from Department of Defense and Veterans Affairs facilities. Social History Type Response Date Comment Source Tobacco smoking status [facility] VA-TOBACCO FORMER USER 08/26/2023 [facility] History of tobacco use [place]-TOBACCO QUIT 15 YRS OR MORE 08/26/2023 [facility] History of tobacco use VA-TOBACCO FORMER USER 04/11/2022 [facility] History of tobacco use TOBACCO PREVIOUS USER 10/30/2021 [place] [facility] History of tobacco use [place]-TOBACCO FORMER USER 08/28/2021 [place] History of tobacco use VA-TOBACCO NEVER USED 01/19/2019 [place] [facility] History of tobacco use LIFETIME NON-USER OF TOBACCO 09/12/2017 [place] History of tobacco use LIFETIME NON-USER OF TOBACCO 11/29/2015 [place] History of tobacco use QUIT TOBACCO >7 YEARS AGO 10/09/2013 [place] History of tobacco use QUIT TOBACCO >7 YEARS AGO 07/04/2012 [place] History of tobacco use TOBACCO USE MISDIAGNOSIS 02/11/2012 [place] History of tobacco use TOBACCO CURRENT USER 12/08/2011 [facility] History of tobacco use LIFETIME NON-USER OF TOBACCO 11/08/2010 [place] History of tobacco use LIFETIME NON-USER OF TOBACCO 07/22/2009 [place] History of tobacco use LIFETIME NON-SMOKER/TOBACCO USER 07/18/2006 [facility] History of tobacco use CURRENT SMOKER 03/25/2006 reducing use on own. BERNIE GARLAND [facility] History of tobacco use LIFETIME NON-TOBACCO USER 09/21/2005 [facility] History of tobacco use LIFETIME NON-TOBACCO USER 09/20/2005 [facility] History of tobacco use LIFETIME NON-SMOKER/TOBACCO USER 09/07/2005 [facility] History of tobacco use LIFETIME NON-SMOKER/TOBACCO USER 06/14/2005 [facility] History of tobacco use LIFETIME NON-SMOKER/TOBACCO USER 03/21/2005 [facility] History of tobacco use LIFETIME NON-TOBACCO USER 12/07/2004 [facility] History of tobacco use TOBACCO PREVIOUS USER 08/14/2004 [facility] History of tobacco use TOBACCO NEVER USED 03/01/2000 [facility] Plan of Care List of future care activities from [facility] facilities. Additional future care activities may be listed in the Assessment and Plan section. Date/Time Care Activity Care Activity Detail Facili ty 07/22/2024 AMBULATORY - MEDICINE [facility]24 [facility] - MEDICINE [facility] 06[facility]03/2024 Consult Order DERMATOLOGY/NHM (OUTPT) Cons [facility] 06/18/2024 Laboratory - Research Food Technologist ry Order DRU[facility] A[facility]SE [facility] 06/30/2024 Consult Order COMMUNITY CARE-B H PSYCHOTHERAPY Cons [facility] Advance Directives List of completed, amended, or rescinded Advance Directives on record at [facility] facilities. An actual copy of the Directive is not included. Date Advance Directive Provider Source 05/16/2011 ADVANCE DIRECTIVE DISCUSSION TON SARAVIA 09/27/2005 ADVANCE DIRECTIVE SHARLENE SIDHU [facility] 09/10/2005 ADVANCE DIRECTIVE DISCUSSION FRANCE RODRIGEZ [facility] 08/14/2004 ADVANCE DIRECTIVE DISCUSSION [facility]
--- OUTSIDE RECORDS SUMMARY | 2024-07-17 16:37 | XMS_ITS | Encounter Summary ---
Author Name [facility] Address [address], [place] [address] Care Team Providers Care Social Sciences Lecturer Name Role Phone LORETTA HANSON Primary Care Provider DREAD Gilmore Primary Care Provider Unavailkristina pennington Insurance Providers: All historical and current Section Date Range: From patient's date of to the date document was created. This section includes the names of all active insurance providers for the patient. Insurance Provider Type of Coverage Plan Name Start of Policy Coverage End of Policy Coverage Group Number Member ID Insurance Provider's Telephone Number Policy Gonzalez's Name Patient's Relationship to Policy Gonzalez [facility] MEDICAID [facility] Aug 05, 2021 01 [id number] ELVIN WALSH PATIENT Selected Encounter This section includes the information on record at OR for the Encounter. Date/Time Encounter Type Encounter Description Reason Pro vider Source 2023 12:00 AM Outpatient Encounter COMMUNITY CARE CONSULT IHE Encounter Template Text not used by [facility] Plan of Treatment: Future Appointments (+ 6 months) and Future Tests (+/- 45 days) The Plan of Treatment section includes future care activities for the patient from all [facility] treatmentfacilities. This section includes future appointments and future orders which are active, pending or scheduled. Future Appointments This section includes appointments that were scheduled to occur 6 months from the date of the Encounter, up to a maximum of 20 appointments. The data comes from all VA treatment facilities. Appointment Date/Time Appointment Type Appointme nt Facility Name Aug 07, 2023 11:00 AM [facility]UL[facility] [place] [facility] Aug 26, 2023 10:00 AM [facility] [place] [facility] Aug 27, 2023 02:00 PM [facility]ULATORY [facility] [place] [facility] Aug 30, 2023 01:30 PM AMBULATORY - PSYCHIATRY [facility] [place] [facility] Sep 02, 2023 11:30 AM AMBULATORY [facility]AT[facility] [place] [facility] Sep 05, 2023 11:00 AM AMBULATORY - PS[facility]ATRY [facility] [place] [facility] Oct 07, 2023 11:30 AM AMBULATORY [facility] [place] [facility] Nov 01, 2023 11:00 AM [facility]ULATORY [facility] [place] [facility] Nov 26, 2023 09:30 AM [facility] [place] [facility] Nov 26, 2023 10:30 AM [facility]ORY [facility] [place] [facility] Nov 26, 2023 10:35 AM [facility]ULATORY [facility] [place] [facility] Dec 03, 2023 01:30 PM AMBULATORY - [facility] MEDICIN [facility] [place] [facility] December 05, 2023 08:00 AM [facility]ULATORY [facility] [place] [facility] December 10, 2023 03:00 PM AMBULATORY - [facility]ICIN [facility] [place] [facility] December 17, 2023 03:00 PM AMBULATORY - [facility] MEDICIN [facility] [place] [facility] December 24, 2023 03:00 PM AMBULATORY - [facility] MEDICIN [facility] [place] [facility] January 01, 2024 11:00 AM AM[facility]ULATORY [facility] [place] [facility] Jan 07, 2024 09:30 AM AMBULATORY [facility]IC[facility] [place] [facility] Jan 08, 2024 09:00 AM [facility] [place] Jan 21, 2024 10:30 AM AMBULATORY - MEDICINE [facility] Social History: Smoking Status (Most current) and Tobacco Use (All prior to encounter date) This section includes the most current, and the historical, smoking and tobacco- related health factors from the [place] facility where the Encounter took place. Current Smoking Status This section includes the most current smoking, or tobacco-related health factor, from the [place] facility where the Encounter took place. Date/Time Current Smoking Status Comment Facil ity Apr 11, 2022 11:00 AM VA-TOBACCO FORMER USER [facility] Tobacco Use History This section includes a history of the smoking, or tobacco-related health factors, that were collected on or before the date of the Encounter. The data comes from the [place] facility where the Encounter took place. Date/Time Smoking Status/Tobacco Use Comment F acility Apr 11, 2022 11:00 AM OR-TOBACCO QUIT 15 YRS OR MORE [facility] Advance Directives: All historical and current Section Date Range: From patient's date of to the date document was created. This section includes ALL of a patient's completed or amended [place] Advance and Rescinded Directives. The entries below indicate that a directive exists for the patient, but an actual copy is not included with this document. The data comes from all [place] facilities. Date Advance Directives Provider Source May 16, 2011 ADVANCE DIRECTIVE DISCUSSION TON SARAVIA Sep 27, 2005 ADVANCE DIRECTIVE SHARLENE SIDHU [facility] Sep 10, 2005 ADVANCE DIRECTIVE DISCUSSION FRANCE [facility]IGE[facility] Aug 14, 2004 ADVANCE DIRECTIVE DISCUSSION [facility] [place] Encounter Notes: All associated encounter notes This section contains the clinical notes associated to the Encounter. Date/Time Encounter Note(s) Provider Source 2023 12:00 AM NONVA CONSULT: LOCAL TITLE: COMMUNITY CARE-CONSULT RESULT NOTE STANDARD TITLE: NONVA CONSULT DATE OF NOTE: 2023 ENTRY DATE: AUG 07, 2023@11:09:25 AUTHOR: ROBERTA MCCLURE COSIGNER: URGENCY: STATUS: COMPLETED VistA Imaging - Scanned Document SCANNED DOCUMENT SIGNATURE NOT REQUIRED Electronically Filed: 08/07/2023 by: ROBERTA MCCLURE LICENSED PRACTICAL NURSE ST HART,ROBERTA [facility]
--- OUTSIDE RECORDS SUMMARY | 2024-07-17 16:37 | XMS_ITS | Encounter Summary ---
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 Date/Time Encounter Type Encounter Description Reason Provider Source Aug 26, 2023 10:00 AM OFFICE O/P EST LOW 20 MIN PRIMARY CARE/MEDICINE ICD-10-CM K22.70 Poon's esophagus without dysplasia LEROY HANSON AM Encounter Template Text not used by [place] Assessments - Encounter Diagnoses This section includes the primary and secondary diagnoses documented for the Encounter. Date/Time Primary/Secondary Diagnosis Diagnosis Name Provider Source Aug 26, 2023 10:24 AM PRIMARY Poon's esophagus without dysplasia MAR HANSONM J [place] [facility] [place] [facility] Aug 26, 2023 10:24 AM SECONDARY Encounter for immunization GIANCARLO CHAMORRO [place] [facility] [place] [facility] Aug 26, 2023 10:24 AM SECONDARY Gastro-esophageal reflux disease without esophagitis HANSON,WILL SERGIO J [place] [facility] [place] [facility] Aug 26, 2023 10:24 AM SECONDARY Hyperlipidemia, unspecified HANSON,WILL SERGIO J [place] [facility] [place] [facility] Aug 26, 2023 10:24 AM SECONDARY Obstructive sleep apnea (adult) (pediatric) HANSON,WILL SERGIO J [place] [facility] [place] [facility] Plan of Treatment: Future Appointments (+ 6 months) and Future Tests (+/- 45 days) The Plan of Treatment section includes future care activities for the patient from all [place] treatmentfacilities. This section includes future appointments and future orders which are active, pending or scheduled. Future Appointments This section includes appointments that were scheduled to occur 6 months from the date of the Encounter, up to a maximum of 20 appointments. The data comes from all [place] treatment facilities. Appointment Date/Time Appointment Type Appointme nt Facility Name Aug 27, 2023 02:00 PM AMBULATORY - MEDICINE [facility] [place] [facility] Aug 30, 2023 01:30 PM AMBULATORY - PSYCHIATRY [facility] [place] [facility] Sep 02, 2023 11:30 AM AMBULATORY - PSYCHIATRY [facility] [place] [facility] Sep 05, 2023 11:00 AM AMBULATORY - PSYCHIATRY [facility] [place] [facility] Oct 07, 2023 11:30 AM AMBULATORY - PSYCHIATRY [facility] [place] [facility] Nov 01, 2023 11:00 AM AMBULATORY - MEDICINE [facility] [place] [facility] Nov 26, 2023 09:30 AM AMBULATORY - MEDICINE [facility] [place] [facility] Nov 26, 2023 10:30 AM AMBULATORY - MEDICINE [facility] [place] [facility] Nov 26, 2023 10:35 AM AMBULATORY - MEDICINE [place] [facility] [place] [facility] Dec 03, 2023 01:30 PM AMBULATORY - REHAB MEDICIN E [facility] [place] [facility] December 05, 2023 08:00 AM AM[facility]ULATORY [facility]IC[facility] [place] [facility] December 10, 2023 03:00 PM AMBULATORY - REHAB MEDICIN E [facility] [place] [facility] December 17, 2023 03:00 PM AMBULATORY - REHAB MEDICIN E [facility] [place] [facility] December 24, 2023 03:00 PM AMBULATORY - REHAB MEDICIN E [facility] [place] [facility] January 01, 2024 11:00 AM AMBULATORY - MEDICINE [facility] [place] [facility] Jan 07, 2024 09:30 AM AMBULATORY - REHAB MEDICIN E [facility] [place] [facility] Jan 08, 2024 09:00 AM AMBULATORY - PSYCHIATRY [facility] [place] [facility] Jan 21, 2024 10:30 AM AMBULATORY - MEDICINE [place] [facility] [place] [facility] Jan 21, 2024 11:30 AM [facility]ORY [facility] [place] [facility] Lab Results: +/- 30 days of the encounter This section includes the Chemistry and Hematology Lab Results on record with [place] for the patient. Radiology Reports and Pathology Reports are provided separately, in subsequent sections. Lab Results This section contains the Chemistry/Hematology Results that were resulted 30 days before or 30 daysafter the date of the Encounter. Date/Time Source Result Type Result - Unit Interpretation Reference Range Comment Aug 26, 2023 09:57 [facility] THYROID T4 FREE(FT4) Specimen Type: SERUM No comment entered. Ordering Provider: LEROY HANSON AM Report Released Date/Time: Aug 13, 2023 02:31 PM [facility] [place] [facility] [address] [address] Performing Lab: [place] [facility] [place] [facility] [address] [address] THYROID T4 FREE(FT4) 0.98 ng/dL 0.6-1.6 Aug 26, 2023 09:57 [facility] LIVER FUNCTION Specimen Type: SERUM No comment entered. Ordering Provider: LEROY HANSON AM Report Released Date/Time: Aug 13, 2023 02:31 PM Reporting Lab: [facility] [address] [address] Performing Lab: [address] [address] PROTEIN,TOTAL 6.9 g/dL 6.0-8.3 ALBUMIN 4.1 g/dL 3.5-5.0 ALKALINE PHOSPHATASE 72 U/L 40-150 AST 30 U/L 5-34 ALT 50 U/L BILIRUBIN, TOTAL 0.7 mg/dL 0.2-1.2 Aug 26, 2023 09:57 AM [facility] HEMOGLOBIN A1C PANEL Specimen Type: BLOOD Comment: Values obtained from A1C measurements can vary. For atypical A1C assays, a reported value of 7.0 could actually be between 6.72 and 7.28 if measured by a reference method. A reported value of 9.0 could actually be between 8.73 and 9.27. Ref: http://www.ngs p.org/CAPdata. asp Ordering Provider: LEROY HANSON AM Report Released Date/Time: Aug 13, 2023 02:31 PM Reporting Lab: [address] [address] Performing Lab: [address] [address] HEMOGLOBIN A1C 5.0 4.0-5.6 Aug 26, 2023 09:57 AM [facility] VITAMIN D (25-OH) Specimen Type: SERUM No comment entered. Ordering Provider: LEROY HANSON AM Report Released Date/Time: Aug 13, 2023 02:31 PM Reporting Lab: [address] [address] Performing Lab: [address] [address] VITAMIN D (25-OH) 25 ng/mL 20-50 Aug 26, 2023 09:57 AM [facility] TSH Specimen Type: SERUM No comment entered. Ordering Provider: LEROY HANSON AM Report Released Date/Time: Aug 13, 2023 02:31 PM Reporting Lab: [facility] [address] [address] Performing Lab: [address] [address] TSH 2.36 u[IU]/mL 0.35-5.00 Aug 26, 2023 09:57 AM [facility] CBC Specimen Type: BLOOD No comment entered. Ordering Provider: LEROY HANSON AM Report Released Date/Time: Aug 13, 2023 02:31 PM Reporting Lab: [address] [address] Performing Lab: [address] [address] WBC 7.02 10*3/uL 4.50-11.00 RBC 5.84 10*6/uL H 4.23-5.66 HGB 16.5 g/dL 12.8-17 HCT 48.2 39.2-50.4 MCV 82.5 fL 82-99 MCHC 34.2 g/dL 30.8-35.1 PLT 207 10*3/uL 140-360 RDW-CV 13.1 12.0-16.0 MCH 28.3 pg 26.2-32.6 Aug 26, 2023 09:57 AM [facility] LIPID PANEL FASTING Specimen Type: SERUM No comment entered. Ordering Provider: LEROY HANSON AM Report Released Date/Time: Aug 13, 2023 02:31 PM Reporting Lab: [facility] [address] [address] Performing Lab: [address] [address] CHOLESTEROL 220 mg/dL H TRIGLYCERIDE 85 mg/dL 0-150 LDL calculated 169 mg/dL H 0-129 CHOL/HDL 6.5 HDL CHOLESTEROL 34 mg/dL L 40-60 Aug 26, 2023 09:57 AM [facility] BASIC METABOLIC PANEL (fasting) Specimen Type: SERUM No comment entered. Ordering Provider: LEROY HANSON AM Report Released Date/Time: Aug 13, 2023 02:31 PM Reporting Lab: [facility] [address] [address] Performing Lab: [facility] [address] [address] UREA NITROGEN 16 mg/dL 7-25 GLUCOSE 98 mg/dL 65-100 SODIUM 140 mmol/L 135-145 POTASSIUM 4.2 mmol/L 3.5-5.0 CHLORIDE 109 mmol/L 100-110 CO2 21 meq/L 20-30 CREATININE, Serum 1.01 mg/dL 0.50-1.40 eGFR(CKD-EPI 2020) >90 mL/min >60 Vital Signs: All taken on the encounter date This section contains inpatient and outpatient Vital Signs collected on the date of the Encounter. Date/Time Temperature Pulse Blood Pressure Respiratory Rate SP02 Pain Height Weight Body Mass Index Source Aug 26, 2023 10:08 AM 98.3 F 88 /min 129/87 mm[Hg] 20 /min 98 % 0 66 in 252 lb 41 [facility] Immunizations: All administered on the encounter date This section contains immunizations associated to the Encounter. Immunization Series Date Issued Reaction Comments INFLUENZA, INJECTABLE, QUADR IVALENT, PRESERVATIVE FREE Aug 26, 2023 Social History: Smoking Status (Most current) and Tobacco Use (All prior to encounter date) This section includes the most current, and the historical, smoking and tobacco- related health factors from the [place] facility where the Encounter took place. Current Smoking Status This section includes the most current smoking, or tobacco-related health factor, from the [place] facility where the Encounter took place. Date/Time Current Smoking Status Comment Terri ity Aug 26, 2023 10:00 AM [place]-TOBACCO FORMER USER [facility] Tobacco Use History This section includes a history of the smoking, or tobacco-related health factors, that were collected on or before the date of the Encounter. The data comes from the [place] facility where the Encounter took place. Date/Time Smoking Status/Tobacco Use Comment F acility Aug 26, 2023 10:00 AM [place]-TOBACCO QUIT 15 YRS OR MORE [facility] Apr 11, 2022 11:00 AM VA-TOBACCO FORMER USER [place] [facility] [place] [facility] Apr 11, 2022 11:00 AM [place]-TOBACCO QUIT 15 YRS OR MORE [facility] Advance Directives: All historical and current Section Date Range: From patient's date of to the date document was created. This section includes ALL of a patient's completed or amended [place] Advance and Rescinded Directives. The entries below indicate that a directive exists for the patient, but an actual copy is not included with this document. The data comes from all [place] facilities. Date Advance Directives Provider Source May 16, 2011 ADVANCE DIRECTIVE DISCUSSION TON SARAVIA [place] Sep 27, 2005 ADVANCE DIRECTIVE SHARLENE SIDHU [facility] Sep 10, 2005 ADVANCE DIRECTIVE DISCUSSION FRANCE RODRIGEZ [facility] Aug 14, 2004 ADVANCE DIRECTIVE DISCUSSION REGULO AGUILAR [place] Encounter Notes: All associated encounter notes This section contains the clinical notes associated to the Encounter. Date/Time Encounter Note(s) Provider Source Aug 26, 2023 10:20 AM PRIMARY CARE NURSE PRACTITIONER OUTPATIENT NOTE: LOCAL TITLE: NURSE PRACTITIONER OUTPATIENT NOTE STANDARD TITLE: PRIMARY CARE NURSE PRACTITIONER OUTPATIENT NOTE DATE OF NOTE: AUG 26, 2023@10:20 ENTRY DATE: AUG 26, 2023@10:20:29 AUTHOR: LORETTA HANSON COSIGNER: URGENCY: STATUS: COMPLETED Chief complaint: Patient is a 48 year old . HPI: Pleasant male here to follow up. Feeling well today, no new concerns. Allergies: Patient has answered NKA The following VA and Non-VA meds were reconciled with patient. The patient was educated on the use of the medications including indication and side effects. Active and Recently Outpatient Medications (excluding Supplies): Active Outpatient Medications Status 1) AZELASTINE 137MCG/SPRAY 200D NASAL INHL SPRAY 1 SPRAY ACTIVE INTO EACH NOSTRIL ONCE DAILY FOR SEASONAL RUNNY NOSE 2) CHOLECALCIF 50MCG (D3-2,000UNIT) TAB TAKE ONE TABLET ACTIVE BY MOUTH ONCE DAILY FOR VITAMIN SUPPLEMENTATION 3) OMEPRAZOLE 20MG EC CAP TAKE ONE CAPSULE BY MOUTH ONCE ACTIVE DAILY Inactive Outpatient Medications Status 1) CETIRIZINE HCL 10MG TAB TAKE ONE TABLET BY MOUTH ONCE DAILY FOR ALLERGIES Active Non-VA Medications Status 1) Non-VA PROBIOTIC (CULTURELLE DIGESTIVE DAILY) CAP/TAB ACTIVE BY MOUTH 5 Total Medications Review of Systems: Constitutional: (-)for Fevers, chills, weakness, nights sweats On examination: 98.3 F [36.8 C] (08/26/2023 10:08)129/87 (08/26/2023 10:08)88 (08/26/2023 10:08) 20 (08/26/2023 10:08)0 (08/26/2023 10:08)BMI: 40.8252 lb [114.31 kg] (08/26/2023 10:08) [place] is alert and oriented X3 Cardiovasc: 2plus carotids without bruits, no JVD Heart Reguler rate and rhythm NL S1S2 no S3 or murmur Respiration: Normal respiratory effort, lungs clear ABD: Benign normal active bowel sounds no HSM no rebound or referred pain EXT: no clubbing, edema, or cyanosis Assessment/plan: Active problems - Computerized Problem List is the source for the followin. Poon's esophagus - stable on PPI 2. Sleep apnea - Using CPAP 3. Hyperlipidemia (SCT [id number]) - Labs today Health Care Maintenance: flu vaccine today Review of medial record = 5mins Time spent with Patient including shared decision making = 15 mins Post visit documentation = 5mins Total time = 25 mins Follow up visit in 6 mos. Alert to PACT RN - Labs as necessary to address clinical status. Medication Reconciliation: Outpatient: Has the patient been taking medications as documented in the EMLR? YES: The patient has been taking medications as documented in the EMLR. Essential Medication List for Review used to complete this medication reconciliation. INCLUDED IN THIS LIST: Alphabetical list of active outpatient prescriptions dispensed from this [place] (local) and dispensed from another VA or DoD facility (remote) as well as inpatient orders (local, pending and active), local clinic medications, locally documented non-VA medications, and local prescriptions that have or been discontinued in the past 90 days. - All changes in medications, including all non-VA/Herbal/OTC medications were entered into CPRS. - If there were any medications the patient should no longer take, they were discontinued. - The patient/caregiver was instructed to update this list, discard old lists, and take this list to the next appointment, whether with a VA or non-VA provider. /roberto/ Loretta Hanson [facility], ADMITTING COUNSELOR-BC, CNL Primary Care Nurse Practitioner Signed: 08/26/2023 10:23 LORETTA HANSON [place] [facility] Aug 26, 2023 10:13 AM PREVENTIVE MEDICINE NURSING NOTE: LOCAL TITLE: CLINICAL REMINDERS/NURSING STANDARD TITLE: PREVENTIVE MEDICINE NURSING NOTE DATE OF NOTE: AUG 26, 2023@10:13 ENTRY DATE: AUG 26, 2023@10:13:23 AUTHOR: JOHNATHAN VERA COSIGNER: URGENCY: STATUS: COMPLETED CLINICAL REMINDERS/NURSING Has ADDENDA Suicide Screen: C-SSRS Screening [place]-Suicide Severity Rating Scale (C-SSRS Screener) 1. Over the past month, have you wished you were or wished you could go to sleep and not wake up? No 2. Over the past month, have you had any actual thoughts of killing yourself? No 3. Over the past month, have you been thinking about how you might do this? Response not required due to responses to other questions. 4. Over the past month, have you had these thoughts and had some intention of acting on them? Response not required due to responses to other questions. 5. Over the past month, have you started to work out or worked out the details of how to kill yourself? Response not required due to responses to other questions. 6. If yes, at any time in the past month did you intend to carry out this plan? Response not required due to responses to other questions. 7. In your lifetime, have you ever done anything, started to do anything, or prepared to do anything to end your life (for example, collected pills, obtained a gun, gave away valuables, went to the roof but didn't jump)? No 8. If YES, was this within the past 3 months? Response not required due to responses to other questions. Homelessness/Food Insecurity Screen: In the past 2 months, have you been living in stable housing that you own, rent, or stay in as part of a household? Yes - Living in stable housing. Are you worried or concerned that in the next 2 months you may NOT have stable housing that you own, rent, or stay in as part of a household? No - Not worried about housing near future The [place] reports the following: Within the past 12 months, you worried whether your food would run out before you got money to buy more. Never true Within the past 12 months, the food you bought just didn't last and you didn't have money to get more. Never true Tobacco Use Screening: The patient is a former tobacco user. The patient quit fifteen or more years ago. Alcohol Use Screen (AUDIT-C): Alcohol Screen: SCREEN FOR ALCOHOL (AUDIT-C) An alcohol screening test (AUDIT-C) was negative (score=0). 1. How often did you have a drink containing alcohol in the past year? Consider a drink to be a 12 ounce can or bottle of regular beer, 8 ounces of malt liquor, a 5 ounce glass of table wine, or a 1.5 ounce shot of liquor (like scotch, gin, or vodka). Never 2. How many drinks containing alcohol did you have on a typical day when you were drinking in the past year? Response not required due to responses to other questions. 3. How often did you have six or more drinks on one occasion in the past year? Response not required due to responses to other questions. /roberto/ Johnathan Vera [facility] Specialist PARKING CONTROL OFFICER,PRIMARY CARE Signed: 08/26/2023 10:14 08/26/2023 ADDENDUM STATUS: COMPLETED Influenza Immunization: The patient was given the influenza VIS which lists the benefits and side effects of the vaccine and which reviews the risks of not receiving the flu vaccine. The VIS was reviewed with the patient and they were given an opportunity to ask questions. The patient was provided education on how to decrease the risk of influenza infection including social distancing and use of good hand hygiene. The patient denied any prior severe reaction to the flu vaccine or its components. The patient gave verbal consent to receive the vaccine. Influenza, Quadrivalent preservative free (Fluzone - syringe) Administered: INFLUENZA, INJECTABLE, QUADRIVALENT, PRESERVATIVE FREE Date Administered: Aug 26, 2023 10:00 Press Bucker: SANOFI PASTEUR Lot: [id number] Exp Date: Feb 02, 2024 [facility]: [id number] Admin Route/Site: INTRAMUSCULAR/LEFT DELTOID Dosage: 0.5mL Vaccine Information Statement(s): INFLUENZA(FLU) VACC(INACTIVATED OR RECOMBINANT)VIS Mar 10, 2021 (SCOTTISH) Order By: Policy Administered By: Jacey Chamorro /roberto/ Jacey Chamorro MSN RN CNL Primary Care RN Signed: 08/26/2023 10:32 JOHNATHAN VERA CN[facility]L [facility]
--- OUTSIDE RECORDS SUMMARY | 2024-07-17 16:37 | XMS_ITS | Encounter Summary ---
Author Name [facility] [place] [facility] [place] [facility] [facility] [place] Address [address] [place] [address] Care Team Providers Care Philosophy Instructor Name Role Phone LORETTA HANSON Primary Care [...] Gonzalez's Name Patient's Relationship to Policy Gonzalez [facility] MEDICA[facility] Aug 05, 2021 01 [id number] ELVIN WALSH PATIENT Selected Encounter This section includes the information on record at [place] for the Encounter. Date/Time Encounter Type Encounter Description Reason Provider Source Aug 07, 2023 11:00 AM OT EVAL LOW COMPLEX 30 MIN OCCUPATIONAL THERAPY ICD-10-CM S66.911S Strain of unsp musc/fasc/ten d at wrs/hnd leila r hand, VENITA Cain IHZahra Encounter Template Text not used by [facility] Assessments - Encounter Diagnoses This section includes the primary and secondary diagnoses documented for the Encounter. Date/Time Primary/Secondary Diagnosis Diagnosis Name Provider Source Aug 07, 2023 03:49 PM PRIMARY Strain of unsp musc/fasc/tend at wrs/hnd leila, r hand, VENITA Cain [facility] [place] [facility] Plan of Treatment: Future Appointments (+ 6 months) and Future Tests (+/- 45 days) The Plan of Treatment section includes future care activities for the patient from all [place] treatmentfacilities. This section includes future appointments and future orders which are active, pending or scheduled. Future Appointments This section includes appointments that were scheduled to occur 6 months from the date of the Encounter, up to a maximum of 20 appointments. The data comes from all [place] treatment facilities. Appointment Date/Time Appointment Type Appointme nt Facility Name Aug 26, 2023 10:00 AM AM[facility]ULATORY [facility] MEDICINE [facility] [place] [facility] Aug 27, 2023 02:00 PM AMBULATORY - MEDICINE [facility] [place] [facility] Aug 30, 2023 01:30 PM AMBULATORY - PSYCHIATRY [facility] [place] [facility] Sep 02, 2023 11:30 AM AMBULATORY - PS[facility]IATRY [facility] [place] [facility] Sep 05, 2023 11:00 AM AMBULATORY - PS[facility]CHIATRY [facility] [place] [facility] Oct 07, 2023 11:30 AM AMBULATORY [facility] PS[facility]IATRY [facility] [place] [facility] Nov 01, 2023 11:00 AM [facility]ULATORY [facility] [place] [facility] Nov 26, 2023 09:30 AM [facility]ATORY [facility]ICINE [facility] [place] [facility] Nov 26, 2023 10:30 AM [facility]ATORY [facility]IC[facility] [place] [facility] Nov 26, 2023 10:35 AM AMBULATORY [facility] MEDICINE [facility] [place] [facility] Dec 03, 2023 01:30 PM AMBULATORY - REHAB MEDICIN E [facility] [place] [facility] December 05, 2023 08:00 AM AMBULATORY [facility] MEDICINE [facility] [place] [facility] December 10, 2023 03:00 PM AMBULATORY - REHAB MEDICIN E [facility] [place] [facility] December 17, 2023 03:00 PM AMBULATORY - REHAB MEDICIN E [facility] [place] [facility] December 24, 2023 03:00 PM AMBULATORY - REHAB MEDICIN E [facility] [place] [facility] January 01, 2024 11:00 AM AMBULATORY - MEDICINE [facility] [place] [facility] Jan 07, 2024 09:30 AM AMBULATORY - REHAB MEDICIN E [facility] [place] [facility] Jan 08, 2024 09:00 AM AM[place] [facility] [place] [facility] Jan 21, 2024 10:30 AM [facility]ULATORY [facility]ICINE [facility] [place] [facility] Jan 21, 2024 11:30 AM [place] [facility] Lab Results: +/- 30 days of the encounter This section includes the Chemistry and Hematology Lab Results on record with [place] for the patient. Radiology Reports and Pathology Reports are provided separately, in subsequent sections. Lab Results This section contains the Chemistry/Hematology Results that were resulted 30 days before or 30 daysafter the date of the Encounter. Date/Time Source Result Type Result - Unit Interpretation Reference Range Comment Aug 26, 2023 09:57 AM [facility] THYROID T4 FREE(FT4) Specimen Type: SERUM No comment entered. Ordering Provider: LEROY HANSON AM Report Released Date/Time: Aug 13, 2023 02:31 PM Reporting Lab: [facility] [address] [facility] [address] Performing Lab: [facility] [address] [facility] [address] THYROID T4 FREE(FT4) 0.98 ng/dL 0.6-1.6 Aug 26, 2023 09:57 AM [facility] HEMOGLOBIN A1C PANEL Specimen Type: BLOOD Comment: [...] Aug 13, 2023 02:31 PM Reporting Lab: [facility] [address] [facility] [address] Performing Lab[facility] [address] [facility] [address] HEMOGLOBIN A1C 5.0 4.0-5.6 Aug 26, 2023 09:57 AM [facility] VITAMIN D (25-OH) Specimen Type: SERUM No comment entered. Ordering Provider: LEROY HANSON AM Report Released Date/Time: Aug 13, 2023 02:31 PM Reporting [facility] [address] [facility] [address] [facility]: [facility] [address] VITAMIN D (25-OH) 25 ng/mL 20-50 Aug 26, 2023 09:57 AM [facility] LIVER FUNCTION Specimen Type: SERUM No comment entered. Ordering Provider: LEROY HANSON AM Report Released Date/Time: Aug 13, 2023 02:31 PM Reporting Lab: [address] [address] [facility] [address] [address] PROTEIN,TOTAL 6.9 g/dL 6.0-8.3 ALBUMIN 4.1 g/dL 3.5-5.0 ALKALINE PHOSPHATASE 72 U/L 40-150 AST 30 U/L 5-34 ALT 50 U/L BILIRUBIN, TOTAL 0.7 mg/dL 0.2-1.2 Aug 26, 2023 09:57 AM [facility] CBC Specimen Type: BLOOD No comment entered. Ordering Provider: LEROY HANSON AM Report Released Date/Time: Aug 13, 2023 02:31 PM Reporting [facility] [address] Performing Lab: [address] [address] WBC 7.02 10*3/uL 4.50-11.00 RBC 5.84 10*6/uL H 4.23-5.66 HGB 16.5 g/dL 12.8-17 HCT 48.2 39.2-50.4 MCV 82.5 fL 82-99 MCHC 34.2 g/dL 30.8-35.1 PLT 207 10*3/uL 140-360 RDW-CV 13.1 12.0-16.0 MCH 28.3 pg 26.2-32.6 Aug 26, 2023 09:57 AM [facility] TSH Specimen Type: SERUM No comment entered. Ordering Provider: LEROY HANSON AM Report Released Date/Time: Aug 13, 2023 02:31 PM Reporting Lab: [address] [address] Performing Lab: [address] [address] TSH 2.36 u[IU]/mL 0.35-5.00 Aug 26, 2023 09:57 AM [facility] BASIC METABOLIC PANEL (fasting) Specimen Type: SERUM No comment entered. Ordering Provider: LEROY HANSON AM Report Released Date/Time: Aug 13, 2023 02:31 PM Reporting Lab: [address] [address] Performing Lab: [address] [address] UREA NITROGEN 16 mg/dL 7-25 GLUCOSE 98 mg/dL 65-100 SODIUM 140 mmol/L 135-145 POTASSIUM 4.2 mmol/L 3.5-5.0 CHLORIDE 109 mmol/L 100-110 CO2 21 meq/L 20-30 CREATININE, Serum 1.01 mg/dL 0.50-1.40 eGFR(CKD-EPI 2020) >90 mL/min >60 Aug 26, 2023 09:57 AM [facility] LIPID PANEL FASTING Specimen Type: SERUM No comment entered. Ordering Provider: LEROY HANSON AM Report Released Date/Time: Aug 13, 2023 02:31 PM Reporting Lab: [address] [address] Performing Lab: [facility] [address] [facility] [address] CHOLESTEROL 220 mg/dL H TRIGLYCERIDE 85 mg/dL 0-150 LDL calculated 169 mg/dL H 0-129 CHOL/HDL 6.5 HDL CHOLESTEROL 34 mg/dL L 40-60 Social History: Smoking Status (Most current) and Tobacco Use (All prior to encounter date) This section includes the most current, and the historical, smoking and tobacco- related health factors from the [place] facility where the Encounter took place. Current Smoking Status This section includes the most current smoking, or tobacco-related health factor, from the [place] facility where the Encounter took place. Date/Time Current Smoking Status Comment Facil ity Apr 11, 2022 11:00 AM [place] FORMER USER [facility] Tobacco Use History This section includes a history of the smoking, or tobacco-related health factors, that were collected on or before the date of the Encounter. The data comes from the [place] facility where the Encounter took place. Date/Time Smoking Status/Tobacco Use Comment F acility Apr 11, 2022 11:00 AM [place] 15 YRS OR MORE [facility] Advance Directives: All historical and current Section Date Range: From patient's date of to the date document was created. This section includes ALL of a patient's completed or amended [place] Advance and Rescinded Directives. The entries below indicate that a directive exists for the patient, but an actual copy is not included with this document. The data comes from all [place] facilities. Date Advance Directives Provider Source May 16, 2011 ADVANCE DIRECTIVE DISCUSSION TON SARAVIA Sep 27, 2005 ADVANCE DIRECTIVE SHARLENE SIDHU [facility] Sep 10, 2005 ADVANCE DIRECTIVE DISCUSSION FRANCE RODRIGEZ [facility] Aug 14, 2004 ADVANCE DIRECTIVE DISCUSSION REGULO AGUILAR Encounter Notes: All associated encounter notes This section contains the clinical notes associated to the Encounter. Date/Time Encounter Note(s) Provider Source Aug 07, 2023 10:59 AM OCCUPATIONAL MEDICINE CONSULT: LOCAL TITLE: CONSULT REPORT/OCCUPATIONAL THERAPY STANDARD TITLE: OCCUPATIONAL MEDICINE CONSULT DATE OF NOTE: AUG 07, 2023@10:59 ENTRY DATE: AUG 07, 2023@11:00:17 AUTHOR: VENITA WEST EXP COSIGNER: LORETTA HANSON URGENCY: STATUS: COMPLETED Initial Evaluation date: Aug Progress Note Date: Treatment #: eval Treatment time: 28 minutes Diagnosis: Strain of unspecified Muscle, Fascia and Tendon at Wrist and Hand Level, right Hand, Initial Encounter(ICD-10-CM S66.911A) Provider: Giancarlo Kraft PCP OT Treatment Precautions: Patient identified by full name and date of S: Mr. Reyna is a 48 y/o [facility] male who was referred to OT for R dominant wrist/hand pain. He was seen in the OT clinic on 08/07/2023. Pt is known to this chart writer from previous sessions. PMH: Active problems - Computerized Problem List is the source for the followin. Gallbladder polyp 2. Pain in right arm 3. 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 Sleep apnea 6. Overweight 7. GERD - Gastro-Esophageal Reflux Disease ([facility] [id number]) 8. Anxiety ([facility] [id number]) 9. Hyperlipidemia ([facility] [id number]) 10. Fatty liver 11. Family history of diabetes mellitus TAYLER: pt had an injury on 07/12/2023. he was trying to close a window and something popped and it hurt. 2 days later it felt fine. his hand is a little annoying when he does certain things.. overall, although taking forever, he feels his elbow and fingers are progressing. Imaging: EMG dated on 2023: Unremarkable study MRI, 03/14/23 IMPRESSION: Mild degenerative cystic change within the distal/ulnar aspect of the scaphoid. Otherwise, unremarkable examination. Pain Level: 0/10 at rest, increasing to 3/10 at worst Pain Location: medial elbow Aggravating Factors: awkward elbow flexion w/ wrist flexion Alleviating Factors: avoiding motions O: Pt is R hand dominant. 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 hx; - [employer]. Hobbies; enjoys hiking, biking, reading and writing. Enjoys cinema and music. Plays the drNegorama. Clinical Presentation: no edema nor erythema noted about elbow, wrist or digits AROM: Wrist flexion: WNL Wrist extension: WNL UD/RD: WNL Special Tests: deferred, negative EMG Palpation: denies ttp Sensation: Pt denies paresthesia's at any time. TX: *reviewed HEP of prayer and wrist flexor stretch, 30 seconds x2 *issued pt TGE's, individual digit extension, digit abd/add, full fist to hook fist. issued handout w/ illustrations and instructions. pt v/u and r/d. ASSESSMENT: Johnie is a 48 y/o male whom presents to the OT clinic ~4 weeks following an acute injury to his R hand. Luckily, his pain and dysfunction has resolved (only a few days after the injury). Reviewed w/ pt that he could always wait 7 days to see if his sx's subside or resolve, as opposed to acting on it immediately, which he understands. Reviewed previously issued HEP w/ pt which he reports having the handouts w/ illustrations and instructions w/. Also reviewed EMG results which were no electrodiagnostic evidence of peripheral neuropathies. PLAN: No further f/u required. the pt's sx's have resolved. he will resume his HEP as needed. Pt is in agreement w/ this POC. GOALS: 1. pt will be compliant w/ HEP 2. pt will report 50% improvement in sx's The practitioner's co-signature on this note signifies agreement with plan of care and clinical diagnosis code. /roberto/ Venita West, OTR/Bryce, CHT Occupational Therapist Signed: 08/07/2023 15:49 /roberto/ Loretta Hanson DNP, EDGE FINISHER-BC, CNL Primary Care Nurse Practitioner Cosigned: 08/08/2023 06:48 VENITA WESTR [facility] [place]
--- OUTSIDE RECORDS SUMMARY | 2024-07-17 16:37 | XMS_ITS ---
Author Name [facility] [place] Organization [facility] [place] Address [address] [place] [address] Care Team Providers Care Phlebotomist Lab Assistant Name Role Phone LORETTA HANSON Primary Care [...] Gonzalez's Name Patient's Relationship to Policy Gonzalez [facility] MEDICAID [facility] Aug 05, 2021 01 [id number] ELVIN WALSH PATIENT Selected Encounter This section includes the information on record at [place] for the Encounter. Date/Time Encounter Type Encounter Description Reason Provider Source Aug 27, 2023 02:00 PM OFFICE O/P NEW SF 15 MIN PODIATRY ICD-10-CM M77.41 Metatarsalgia , right foot MEGHANN PERDUE Zahra Encounter Template Text not used by [place] Assessments - Encounter Diagnoses This section includes the primary and secondary diagnoses documented for the Encounter. Date/Time Primary/Secondary Diagnosis Diagnosis Name Provider Source Aug 27, 2023 02:41 PM PRIMARY Metatarsalgia, right foot MEGHANN PERDUE [place] [facility] [place] [facility] Plan of Treatment: Future Appointments (+ 6 months) and Future Tests (+/- 45 days) The Plan of Treatment section includes future care activities for the [facility] This section includes future appointments and future orders which are active, pending or scheduled. Future Appointments This section includes appointments that were scheduled to occur 6 months from the date of the Encounter, up to a maximum of 20 appointments. The data comes from all [place] treatment facilities. Appointment Date/Time Appointment Type Appointme nt Facility Name Aug 30, 2023 01:30 PM AMBULATORY - PS[facility]CHIATRY [facility] [place] [facility] Sep 02, 2023 11:30 AM AMBULATORY - PSYCHIATRY [facility] [place] [facility] Sep 05, 2023 11:00 AM AMBULATORY - PSYCHIATRY [facility] [place] [facility] Oct 07, 2023 11:30 AM AMBULATORY - PSYCHIATRY [facility] [place] [facility] Nov 01, 2023 11:00 AM AMBULATORY - MEDICINE [facility] [place] [place] [facility] Nov 26, 2023 09:30 AM AMBULATORY - MEDICINE [facility] [place] [facility] Nov 26, 2023 10:30 AM AMBULATORY - MEDICINE [place] [facility] [place] [place] [facility] Nov 26, 2023 10:35 AM AMBULATORY - MEDICINE [place] [facility] [place] [place] [facility] Dec 03, 2023 01:30 PM AMBULATORY - REHAB MEDICIN E [facility] [place] [facility] December 05, 2023 08:00 AM AMBULATORY - MEDICINE [facility] [place] [place] [facility] December 10, 2023 03:00 PM AMBULATORY - REHAB MEDICIN E [facility] [place] [facility] December 17, 2023 03:00 PM AMBULATORY - REHAB MEDICIN E [facility] [place] [facility] December 24, 2023 03:00 PM AMBULATORY - REHAB MEDICIN E [facility] [place] [facility] January 01, 2024 11:00 AM AMBULATORY - MEDICINE [facility] [place] [place] [facility] Jan 07, 2024 09:30 AM AMBULATORY - REHAB MEDICIN E [facility] [place] [facility] Jan 08, 2024 09:00 AM [facility] Jan 21, 2024 10:30 AM AMBULATORY - MEDICINE [facility] Jan 21, 2024 11:30 AM AMBULATORY - MEDICINE [facility] Lab Results: +/- 30 days of the encounter This section includes the Chemistry and Hematology Lab Results on record with [place] for the patient. Radiology Reports and Pathology Reports are provided separately, in subsequent sections. Lab Results This section contains the Chemistry/Hematology Results that were resulted 30 days before or 30 daysafter the date of the Encounter. Date/Time Source Result Type Result - Unit Interpretation Reference Range Comment Aug 26, 2023 09:57 AM [facility] THYROID T4 FREE(FT4) Specimen Type: SERUM No comment entered. Ordering Provider: LEROY HANSON AM Report Released Date/Time: Aug 13, 2023 02:31 PM Reporting Lab: [facility] [address] [facility] [address] Performing Lab: [facility] [address] [facility] [address] THYROID T4 FREE(FT4) 0.98 ng/dL 0.6-1.6 Aug 26, 2023 09:57 AM [facility] HEMOGLOBIN A1C PANEL Specimen Type: BLOOD Comment: [...] Aug 13, 2023 02:31 PM Reporting Lab: [facility] [address] [facility] [address] Performing Lab: [address] [address] HEMOGLOBIN A1C 5.0 4.0-5.6 Aug 26, 2023 09:57 AM [facility] VITAMIN D (25-OH) Specimen Type: SERUM No comment entered. Ordering Provider: LEROY HANSON AM Report Released Date/Time: Aug 13, 2023 02:31 PM Reporting Lab: [address] [address] Performing Lab: [address] [address] VITAMIN D (25-OH) 25 ng/mL 20-50 Aug 26, 2023 09:57 AM [facility] LIVER FUNCTION Specimen Type: SERUM No comment entered. Ordering Provider: LEROY HANSON AM Report Released Date/Time: Aug 13, 2023 02:31 PM Reporting Lab: [address] [address] Performing Lab: [address] [address] PROTEIN,TOTAL 6.9 g/dL 6.0-8.3 ALBUMIN 4.1 g/dL 3.5-5.0 ALKALINE PHOSPHATASE 72 U/L 40-150 AST 30 U/L 5-34 ALT 50 U/L BILIRUBIN, TOTAL 0.7 mg/dL 0.2-1.2 Aug 26, 2023 09:57 AM [facility] TSH Specimen Type: SERUM No comment entered. Ordering Provider: LEROY HANSON AM Report Released Date/Time: Aug 13, 2023 02:31 PM Reporting Lab: [address] [address] Performing Lab: [address] [address] TSH 2.36 u[IU]/mL 0.35-5.00 Aug 26, 2023 09:57 AM [facility] BASIC METABOLIC PANEL (fasting) Specimen Type: SERUM No comment entered. Ordering Provider: LEROY HANSON AM Report Released Date/Time: Aug 13, 2023 02:31 PM Reporting Lab: [address] [address] Performing Lab: [facility] [address] [facility] [address] UREA NITROGEN 16 mg/dL 7-25 GLUCOSE 98 mg/dL 65-100 SODIUM 140 mmol/L 135-145 POTASSIUM 4.2 mmol/L 3.5-5.0 CHLORIDE 109 mmol/L 100-110 CO2 21 meq/L 20-30 CREATININE, Serum 1.01 mg/dL 0.50-1.40 eGFR(CKD-EPI 2020) >90 mL/min >60 Aug 26, 2023 09:57 AM [facility] LIPID PANEL FASTING Specimen Type: SERUM No comment entered. Ordering Provider: LEROY HANSON AM Report Released Date/Time: Aug 13, 2023 02:31 PM Reporting Lab: [address] [address] Performing Lab: [address] [address] CHOLESTEROL 220 mg/dL H TRIGLYCERIDE 85 mg/dL 0-150 LDL calculated 169 mg/dL H 0-129 CHOL/HDL 6.5 HDL CHOLESTEROL 34 mg/dL L 40-60 Aug 26, 2023 09:57 AM [facility] CBC Specimen Type: BLOOD No comment entered. Ordering Provider: LEROY HANSON AM Report Released Date/Time: Aug 13, 2023 02:31 PM Reporting Lab: [address] [address] Performing Lab: [address] [address] WBC 7.02 10*3/uL 4.50-11.00 RBC 5.84 10*6/uL H 4.23-5.66 HGB 16.5 g/dL 12.8-17 HCT 48.2 39.2-50.4 MCV 82.5 fL 82-99 MCHC 34.2 g/dL 30.8-35.1 PLT 207 10*3/uL 140-360 RDW-CV 13.1 12.0-16.0 MCH 28.3 pg 26.2-32.6 Social History: Smoking Status (Most current) and Tobacco Use (All prior to encounter date) This section includes the most current, and the historical, smoking and tobacco- related health factors from the [place] facility where the Encounter took place. Current Smoking Status This section includes the most current smoking, or tobacco-related health factor, from the [place] facility where the Encounter took place. Date/Time Current Smoking Status Comment Terri ity Aug 26, 2023 10:00 AM [place]-TOBACCO FORMER USER [facility] Tobacco Use History This section includes a history of the smoking, or tobacco-related health factors, that were collected on or before the date of the Encounter. The data comes from the [place] facility where the Encounter took place. Date/Time Smoking Status/Tobacco Use Comment F acility Aug 26, 2023 10:00 AM HI-TOBACCO QUIT 15 YRS OR MORE [facility] Apr 11, 2022 11:00 AM [place]-TOBACCO FORMER USER [facility] Apr 11, 2022 11:00 AM [place]-TOBACCO QUIT 15 YRS OR MORE [facility] Advance Directives: All historical and current Section Date Range: From patient's date of to the date document was created. This section includes ALL of a patient's completed or amended [place] Advance and Rescinded Directives. The entries below indicate that a directive exists for the patient, but an actual copy is not included with this document. The data comes from all [place] facilities. Date Advance Directives Provider Source May 16, 2011 ADVANCE DIRECTIVE DISCUSSION TON SARAVIA Sep 27, 2005 ADVANCE DIRECTIVE SHARLENE SIDHU [facility] Sep 10, 2005 ADVANCE DIRECTIVE DISCUSSION FRANCE RODRIGEZ [facility] Aug 14, 2004 ADVANCE DIRECTIVE DISCUSSION REGULO AGUILAR [place] Encounter Notes: All associated encounter notes This section contains the clinical notes associated to the Encounter. Date/Time Encounter Note(s) Provider Source Aug 27, 2023 02:29 PM PODIATRY CONSULT: LOCAL TITLE: CONSULT REPORT/PODIATRY STANDARD TITLE: PODIATRY CONSULT DATE OF NOTE: AUG 27, 2023@14:29 ENTRY DATE: AUG 27, 2023@14:29:47 AUTHOR: MEGHANN PERDUE COSIGNER: URGENCY: STATUS: COMPLETED S) 48 y/o male referred for new orthotics. Had a pair several years old from another clinic that are usable but wearing. He c/o hx of ball of foot pain on right foot only but is controlled well with the orthotics Active Medical Problems: Active Problem Gallbladder polyp K82.4 03/26/2023 LORETTA HANSON Pain in right arm M79.601 02/21/2023 LORETTA HANSON Poon's esophagus K22.70 09/18/2022 LORETTA HANSON Attention deficit hyperactivity dis 06/25/2022 ELISHA RAHMAN Sleep apnea G47.33 04/12/2022 LORETTA HANSON Overweight E66.3 04/12/2022 LORETTA HANSON GERD - Gastro-Esophageal Reflux Dis 04/11/2022 LORETTA HANSON Anxiety ([facility] [id number]) F41.9 04/11/2022 LORETTA HANSON Hyperlipidemia ([facility] [id number]) E78.5 04/11/2022 LORETTA HANSON Fatty liver K76.0 04/11/2022 LORETTA HANSON Family history of diabetes mellitus 04/11/2022 LORETTA HANSON Allergies: NKA O. Nails:Brittle, shortened 1-5 (B) Skin intact, no lesions or rash Vascular: DP:palpable 2/4 (B) PT:palpable 2/4(B) cft:2 sec Hair:present edema : none Skin:warm, dry Sensory: 5.07 monofilament wire intact 10/10, no numbness or tingling MSK: ROM wnl, strength 5/5, no gross deformityt. Feet mildly overpronate in stance, slightly short 1st met B/L No erythema, edema, eccymosis Shoegear: [place] slip on, normal wear pattern, semi rigid orthotics with right foot met pad A) Hx meteatarsalgia Rt foot mild pes planus P) foot exam discussed foot type with pt and findings consult to O&P lab for new set of functional custom foot orthotics with a met pad for the right side discussed break in procedure with pt rtc 1 yr/prn Active Outpatient Medications (including Supplies): Active Outpatient Medications Status 1) AZELASTINE 137MCG/SPRAY 200D NASAL INHL SPRAY 1 SPRAY ACTIVE INTO EACH NOSTRIL ONCE DAILY FOR SEASONAL RUNNY NOSE 2) CHOLECALCIF 50MCG (D3-2,000UNIT) TAB TAKE ONE TABLET ACTIVE BY MOUTH ONCE DAILY FOR VITAMIN SUPPLEMENTATION 3) OMEPRAZOLE 20MG EC CAP TAKE ONE CAPSULE BY MOUTH ONCE ACTIVE DAILY Active Non-VA Medications Status 1) Non-VA PROBIOTIC (CULTURELLE DIGESTIVE DAILY) CAP/TAB ACTIVE BY MOUTH 4 Total Medications Podiatry related medications reviewed /es/ MEGHANN PERDUE DPM CITRIX ADMINISTRATOR Signed: 08/27/2023 14:43 MEGHANN PERDUE [facility] [place] [facility]
--- OUTSIDE RECORDS SUMMARY | 2024-07-17 16:38 | XMS_ITS | Encounter Summary ---
Author Name [facility] [place] Address [address] [place] [address] Care Team Providers Care Fisher Diver Net Name Role Phone LORETTA HANSON Primary Care [...] Gonzalez's Name Patient's Relationship to Policy Gonzalez [facility] MEDICAID [facility] Aug 05, 2021 01 [id number] ELVIN WALSH PATIENT Selected Encounter This section includes the information on record at [place] for the Encounter. Date/Time Encounter Type Encounter Description Reason Provider Source Aug 30, 2023 01:30 PM PSYTX W PT 30 [facility]ES [facility] - IND ICD-10-CM F90.0 Attn-defct hyperactivity disorder, predom inattentive type ELISHA RAHMAN Encounter Template Text not used by [facility] Assessments - Encounter Diagnoses This section includes the primary and secondary diagnoses documented for the Encounter. Date/Time Primary/Secondary Diagnosis Diagnosis Name Provider Source Sep 02, 2023 09:56 AM PRIMARY Attn-defct hyperactivity disorder, predom inattentive type ELISHA RAHMAN [place] [facility] [place] [facility] Sep 02, 2023 09:56 AM SECONDARY Anxiety disorder, unspecified ELISHA RAHMAN [place] [facility] [place] [facility] Plan of Treatment: Future Appointments (+ 6 months) and Future Tests (+/- 45 days) The Plan of Treatment section includes future care activities for the patient [facility] [place] [facility]. This section includes future appointments and future orders which are active, pending or scheduled. Future Appointments This section includes appointments that were scheduled to occur 6 months from the date of the Encounter, up to a maximum of 20 appointments. The data comes from all [place] treatment facilities. Appointment Date/Time Appointment Type Appointme nt Facility Name Sep 02, 2023 11:30 AM AMBULATORY - PSYCHIATRY [facility] [place] [facility] Sep 05, 2023 11:00 AM AMBULATORY - PSYCHIATRY [facility] [place] [facility] Oct 07, 2023 11:30 AM AMBULATORY - PSYCHIATRY [facility] [place] [facility] Nov 01, 2023 11:00 AM AMBULATORY - MEDICINE [facility] [place] [facility] Nov 26, 2023 09:30 AM AMBULATORY - MEDICINE [facility] [place] [place] [facility] Nov 26, 2023 10:30 AM AMBULATORY - MEDICINE [facility] [place] [place] [facility] Nov 26, 2023 10:35 AM AMBULATORY - MEDICINE [facility] [place] [place] [facility] Dec 03, 2023 01:30 PM AMBULATORY - REHAB MEDICIN E [facility] [place] [facility] December 05, 2023 08:00 AM AMBULATORY - MEDICINE [facility] [place] [place] [facility] December 10, 2023 03:00 PM AMBULATORY - REHAB MEDICIN E [facility] [place] [facility] December 17, 2023 03:00 PM AMBULATORY - REHAB MEDICIN E [facility] [place] [place] [facility] December 24, 2023 03:00 PM AMBULATORY - REHAB MEDICIN E [facility] [place] [facility] January 01, 2024 11:00 AM AMBULATORY - MEDICINE [facility] [place] [place] [facility] Jan 07, 2024 09:30 AM AMBULATORY - REHAB MEDICIN E [place] [facility] [place] [facility] Jan 08, 2024 09:00 AM AMBULATORY - PSYCHIATRY [place] [facility] [place] [facility] Jan 21, 2024 10:30 AM AMBULATORY - MEDICINE [place] [facility] [place] [facility] Jan 21, 2024 11:30 AM [facility] [place] [facility] Lab Results: +/- 30 days of the encounter This section includes the Chemistry and Hematology Lab Results on record with [place] for the patient. Radiology Reports and Pathology Reports are provided separately, in subsequent sections. Lab Results This section contains the Chemistry/Hematology Results that were resulted 30 days before or 30 daysafter the date of the Encounter. Date/Time Source Result Type Result - Unit Interpretation Reference Range Comment Aug 26, 2023 09:57 AM [facility] T4 FREE(FT4) Specimen Type: SERUM No comment entered. Ordering Provider: LEROY HANSON AM Report Released Date/Time: Aug 13, 2023 02:31 PM Reporting Lab: [facility] [address] [facility] [address] Performing Lab: [facility] [address] [facility] [address] THYROID T4 FREE(FT4) 0.98 ng/dL 0.6-1.6 Aug 26, 2023 09:57 AM [facility] HEMOGLOBIN A1C PANEL Specimen Type: [...] Aug 13, 2023 02:31 PM Reporting Lab: [facility] [address] [facility] [address] Performing Lab: [facility] [address] [facility] [address] HEMOGLOBIN A1C 5.0 4.0-5.6 Aug 26, 2023 09:57 AM [facility] LIVER FUNCTION Specimen Type: SERUM No comment entered. Ordering Provider: LEROY HANSON AM Report Released Date/Time: Aug 13, 2023 02:31 PM Reporting Lab: [facility] [address] [facility] [address] Performing Lab: [address] [address] PROTEIN,TOTAL 6.9 g/dL 6.0-8.3 ALBUMIN 4.1 g/dL 3.5-5.0 ALKALINE PHOSPHATASE 72 U/L 40-150 AST 30 U/L 5-34 ALT 50 U/L BILIRUBIN, TOTAL 0.7 mg/dL 0.2-1.2 Aug 26, 2023 09:57 AM [facility] VITAMIN D (25-OH) Specimen Type: SERUM No comment entered. Ordering Provider: LEROY HANSON AM Report Released Date/Time: Aug 13, 2023 02:31 PM Reporting Lab: [facility] [address] [facility] [address] Performing Lab: [address] [address] VITAMIN D (25-OH) 25 ng/mL 20-50 Aug 26, 2023 09:57 AM [facility] CBC Specimen Type: BLOOD No comment entered. Ordering Provider: LEROY HANSON AM Report Released Date/Time: Aug 13, 2023 02:31 PM Reporting Lab: [facility] [address] [facility] [address] Performing Lab: [address] [address] WBC 7.02 10*3/uL 4.50-11.00 RBC 5.84 10*6/uL H 4.23-5.66 HGB 16.5 g/dL 12.8-17 HCT 48.2 39.2-50.4 MCV 82.5 fL 82-99 MCHC 34.2 g/dL 30.8-35.1 PLT 207 10*3/uL 140-360 RDW-CV 13.1 12.0-16.0 MCH 28.3 pg 26.2-32.6 Aug 26, 2023 09:57 AM [facility] TSH Specimen Type: SERUM No comment entered. Ordering Provider: LEORY HANSON AM Report Released Date/Time: Aug 13, 2023 02:31 PM Reporting Lab: [facility] [address] [facility] [address] Performing Lab: [facility] [address] [facility] [address] TSH 2.36 u[IU]/mL 0.35-5.00 Aug 26, 2023 09:57 AM [facility] LIPID PANEL FASTING Specimen Type: SERUM No comment entered. Ordering Provider: LEROY HANSON AM Report Released Date/Time: Aug 13, 2023 02:31 PM Reporting Lab: [address] [address] Performing Lab: [address] [address] CHOLESTEROL 220 mg/dL H TRIGLYCERIDE 85 mg/dL 0-150 LDL calculated 169 mg/dL H 0-129 CHOL/HDL 6.5 HDL CHOLESTEROL 34 mg/dL L 40-60 Aug 26, 2023 09:57 AM [facility] BASIC METABOLIC PANEL (fasting) Specimen Type: SERUM No comment entered. Ordering Provider: LEROY HANSON AM Report Released Date/Time: Aug 13, 2023 02:31 PM Reporting Lab: [facility] [address] [facility] [address] Performing Lab: [address] [address] UREA NITROGEN 16 mg/dL 7-25 GLUCOSE 98 mg/dL 65-100 SODIUM 140 mmol/L 135-145 POTASSIUM 4.2 mmol/L 3.5-5.0 CHLORIDE 109 mmol/L 100-110 CO2 21 meq/L 20-30 CREATININE, Serum 1.01 mg/dL 0.50-1.40 eGFR(CKD-EPI 2020) >90 mL/min >60 Social History: Smoking Status (Most current) and Tobacco Use (All prior to encounter date) This section includes the most current, and the historical, smoking and tobacco- related health factors from the [place] facility where the Encounter took place. Current Smoking Status This section includes the most current smoking, or tobacco-related health factor, from the [place] facility where the Encounter took place. Date/Time Current Smoking Status Comment Terri ity Aug 26, 2023 10:00 AM [place]-TOBAC[place] FORMER USER [facility] Tobacco Use History This section includes a history of the smoking, or tobacco-related health factors, that were collected on or before the date of the Encounter. The data comes from the [place] facility where the Encounter took place. Date/Time Smoking Status/Tobacco Use Comment F acaleksey Aug 26, 2023 10:00 AM [place]-TOBACCO QUIT 15 YRS OR MORE [facility] Apr 11, 2022 11:00 AM [place]-TOBACCO FORMER USER [facility] Apr 11, 2022 11:00 AM [place]-TOBACCO QUIT 15 YRS OR MORE [facility] Advance Directives: All historical and current Section Date Range: From patient's date of to the date document was created. This section includes ALL of a patient's completed or amended [place] Advance and Rescinded Directives. The entries below indicate that a directive exists for the patient, but an actual copy is not included with this document. The data comes from all [place] facilities. Date Advance Directives Provider Source May 16, 2011 ADVANCE DIRECTIVE DISCUSSION TON SARAVIA Sep 27, 2005 ADVANCE DIRECTIVE SHARLENE SIDHU [facility] Sep 10, 2005 ADVANCE DIRECTIVE DISCUSSION FRANCE RODRIGEZ [facility] Aug 14, 2004 ADVANCE DIRECTIVE DISCUSSION REGULO AGUILAR Encounter Notes: All associated encounter notes This section contains the clinical notes associated to the Encounter. Date/Time Encounter Note(s) Provider Source Aug 30, 2023 02:03 PM PSYCHOLOGY NOTE: LOCAL TITLE: PSYCHOLOGY NOTE STANDARD TITLE: PSYCHOLOGY NOTE DATE OF NOTE: AUG 30, 2023@14:03 ENTRY DATE: AUG 30, 2023@14:03:06 AUTHOR: ELISHA RAHMAN EXP COSIGNER: URGENCY: STATUS: COMPLETED Date of session: Aug Duration of session: 30 Diagnosis: Anxiety, ADHD, predominantly inattentive type. Presenting Problem ([place] report): Frustrated enough with his progress that he's interested in another consultation with Dr. Frances. He'd given up before because he's highly sensitive to medication, and didn't tolerate several trials. 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 Course of Session: He's still managing financially with parttime work. His partner agrees that his anxiety is holding him back and that further exploration of medication options is indicated. Specific mental health/clinical interventions: We reviewed self-care, and he's fallen off on exercise due to weather conditions. He decides he can afford $10 a month for a gym membership; he does recall exercise is important for general wellness and for anxiety in particular. Mental Status/Clinical Impression: 1. Appearance (grooming, attire, apparent age) within normal limits: Yes 2. Thought content was organized and goal directed: Yes 3. Speech was coherent and unimpaired: Yes 4. Affect was appropriate and unremarkable: Consistent with reported anxiety 5. Demeanor was calm, with no signs of agitation or restlessness: Yes 6. Problems with sleep or appetite reported: Yes 7. Psychosis (hallucinations or delusions): No Date of next planned contact: [facility] as needed /es/ ELISHA RAHMAN, PhD Clinical Psychologist Signed: 09/02/2023 09:57 EL[facility]HA [facility]HMAN [place] [facility]
--- OUTSIDE RECORDS SUMMARY | 2024-07-17 16:38 | XMS_ITS | Encounter Summary ---
Author Name [facility] Organization [facility] Address [address] [place] [address] Care Team Providers Care Manager Tax Name Role Phone LORETTA HANSON Primary Care [...] Gonzalez's Name Patient's Relationship to Policy Gonzalez [facility] MEDICA[facility] Aug 05, 2021 01 [id number] ELVIN WALSH PATIENT Selected Encounter This section includes the information on record at ME for the Encounter. Date/Time Encounter Type Encounter Description Reason Provider Source Sep 02, 2023 11:30 AM MTMS BY PHARM ADDL [facility] - IND ICD-10-CM F41.9 Anxiety disorder, unspecified MAGGIE FRANCES [facility] SHWETA Torres IHZahra Encounter Template Text not used by ME Assessments - Encounter Diagnoses This section includes the primary and secondary diagnoses documented for the Encounter. Date/Time Primary/Secondary Diagnosis Diagnosis Name Provider Source Sep 03, 2023 01:58 PM PRIMARY Anxiety disorder, unspecified CARMEN FRANCES [facility] [place] [facility] Sep 03, 2023 01:58 PM SECONDARY Attn-defct hyperactivity disorder, predom inattentive type CARMEN FRANCES [facility] [place] [facility] Plan of Treatment: Future Appointments (+ 6 months) and Future Tests (+/- 45 days) The Plan of Treatment section includes future care activities for the patient [facility] This section includes future appointments and future orders which are active, pending or scheduled. Future Appointments This section includes appointments that were scheduled to occur 6 months from the date of the Encounter, up to a maximum of 20 appointments. The data comes from all [place] treatment facilities. Appointment Date/Time Appointment Type Appointme nt Facility Name Sep 05, 2023 11:00 AM AMBULATORY - PSYCHIATRY [facility] [place] [facility] Oct 07, 2023 11:30 AM AMBULATORY - PSYCHIATRY [facility] [place] [facility] Nov 01, 2023 11:00 AM AMBULATORY - MEDICINE [facility] [place] [facility] Nov 26, 2023 09:30 AM AMBULATORY - MEDICINE [facility] [place] [facility] Nov 26, 2023 10:30 AM AMBULATORY - MEDICINE [facility] [place] [facility] Nov 26, 2023 10:35 AM AMBULATORY - MEDICINE [facility] [place] [facility] Dec 03, 2023 01:30 PM AMBULATORY - REHAB MEDICIN E [facility] [place] [facility] December 05, 2023 08:00 AM AMBULATORY - MEDICINE [facility] [place] [facility] December 10, 2023 03:00 PM AMBULATORY - REHAB MEDICIN E [facility] [place] [facility] December 17, 2023 03:00 PM AMBULATORY - REHAB MEDICIN E [facility] [place] [facility] December 24, 2023 03:00 PM AMBULATORY - REHAB MEDICIN E [facility] [place] [facility] January 01, 2024 11:00 AM AMBULATORY - MEDICINE [facility] [place] [facility] Jan 07, 2024 09:30 AM AMBULATORY - REHAB MEDICIN E [facility] [place] [facility] Jan 08, 2024 09:00 AM AMBULATORY - PSYCHIATRY [facility] [place] [facility] Jan 21, 2024 10:30 AM AMBULATORY - MEDICINE [facility] [place] [facility] Jan 21, 2024 11:30 AM [facility] Lab Results: +/- 30 days of the encounter This section includes the Chemistry and Hematology Lab Results on record with ME for the patient. Radiology Reports and Pathology Reports are provided separately, in subsequent sections. Lab Results This section contains the Chemistry/Hematology Results that were resulted 30 days before or 30 daysafter the date of the Encounter. Date/Time Source Result Type Result - Unit Interpretation Reference Range Comment Aug 26, 2023 09:57 AM [facility] THYROID T4 FREE(FT4) Specimen Type: SERUM No comment entered. Ordering Provider: LEROY HANSON AM Report Released Date/Time: Aug 13, 2023 02:31 PM Reporting Lab: [facility] [address] [facility] [address] Performing Lab: [facility] [address] [facility] [address] THYROID T4 FREE(FT4) 0.98 ng/dL 0.6-1.6 Aug [...] 02:31 PM Reporting Lab: [facility] [address] [facility] [address] Performing Lab: [address] [address] HEMOGLOBIN A1C 5.0 4.0-5.6 Aug 26, 2023 09:57 AM [facility] VITAMIN D (25-OH) Specimen Type: SERUM No comment entered. Ordering Provider: LEROY HANSON AM Report Released Date/Time: Aug 13, 2023 02:31 PM Reporting Lab: [address] [address] Performing Lab: [address] [address] VITAMIN D (25-OH) 25 ng/mL 20-50 Aug 26, 2023 09:57 AM [facility] LIVER FUNCTION Specimen Type: SERUM No comment entered. Ordering Provider: LEROY HANSON AM Report Released Date/Time: Aug 13, 2023 02:31 PM Reporting Lab: [address] [address] Performing Lab: [address] [address] PROTEIN,TOTAL 6.9 g/dL 6.0-8.3 ALBUMIN 4.1 g/dL 3.5-5.0 ALKALINE PHOSPHATASE 72 U/L 40-150 AST 30 U/L 5-34 ALT 50 U/L BILIRUBIN, TOTAL 0.7 mg/dL 0.2-1.2 Aug 26, 2023 09:57 AM [facility] TSH Specimen Type: SERUM No comment entered. Ordering Provider: LEROY HANSON AM Report Released Date/Time: Aug 13, 2023 02:31 PM Reporting Lab: [address] [address] Performing Lab: [address] [address] TSH 2.36 u[IU]/mL 0.35-5.00 Aug 26, 2023 09:57 AM [facility] BASIC METABOLIC PANEL (fasting) Specimen Type: SERUM No comment entered. Ordering Provider: LEROY HANSON AM Report Released Date/Time: Aug 13, 2023 02:31 PM Reporting Lab: [address] [place] [address] Performing Lab: [facility] [address] [facility] [address] UREA NITROGEN 16 mg/dL 7-25 GLUCOSE 98 [...] Aug 13, 2023 02:31 PM Reporting Lab: [address] [address] Performing Lab: [address] [address] CHOLESTEROL 220 mg/dL H TRIGLYCERIDE 85 mg/dL 0-150 LDL calculated 169 mg/dL H 0-129 CHOL/HDL 6.5 HDL CHOLESTEROL 34 mg/dL L 40-60 Aug 26, 2023 09:57 AM [facility] CBC Specimen Type: BLOOD No comment entered. Ordering Provider: LEROY HANSON AM Report Released Date/Time: Aug 13, 2023 02:31 PM Reporting Lab: [address] [address] Performing Lab: [address] [address] WBC 7.02 10*3/uL 4.50-11.00 RBC 5.84 10*6/uL [...] and tobacco- related health factors from the [place] facility where the Encounter took place. Current Smoking Status This section includes the most current smoking, or tobacco-related health factor, from the [place] facility where the Encounter took place. Date/Time Current Smoking Status Comment Terri ity Aug 26, 2023 10:00 AM ME-TOBACCO FORMER USER [facility] Tobacco Use History This section includes a history of the smoking, or tobacco-related health factors, that were collected on or before the date of the Encounter. The data comes from the ME facility where the Encounter took place. Date/Time Smoking Status/Tobacco Use Comment F acaleksey Aug 26, 2023 10:00 AM ME-TOBACCO QUIT 15 YRS OR MORE [facility] Apr 11, 2022 11:00 AM ME-TOBACCO FORMER USER [facility] Apr 11, 2022 11:00 AM ME-TOBACCO QUIT 15 YRS OR MORE [facility] Advance Directives: All historical and current Section Date Range: From patient's date of to the date document was created. This section includes ALL of a patient's completed or amended [place] Advance and Rescinded Directives. The entries below indicate that a directive exists for the patient, but an actual copy is not included with this document. The data comes from all [place] facilities. Date Advance Directives Provider Source May 16, 2011 ADVANCE DIRECTIVE DISCUSSION TON SARAVIA Sep 27, 2005 ADVANCE DIRECTIVE SHARLENE SIDHU [facility] Sep 10, 2005 ADVANCE DIRECTIVE DISCUSSION FRANCE RODRIGEZ [facility] Aug 14, 2004 ADVANCE DIRECTIVE DISCUSSION REGULO AGUILAR Encounter Notes: All associated encounter notes This section contains the clinical notes associated to the Encounter. Date/Time Encounter Note(s) Provider Source Sep 02, 2023 11:34 AM PHARMACY MEDICATION MGT NOTE: LOCAL TITLE: CLINICAL PHARMACIST F/U NOTE STANDARD TITLE: PHARMACY MEDICATION MGT NOTE DATE OF NOTE: SEP 02, 2023@11:34 ENTRY DATE: SEP 02, 2023@11:34:12 AUTHOR: HOSSEIN FRANCES COSIGNER: URGENCY: STATUS: COMPLETED [facility] ([facility]) Standard Documentation [facility] Clinician Resources Only: E911 (Emergency Call Relay Center): [phone] [facility] Crisis Line - 988 then press #1. JASPREET Suicide Coordinator [phone], Ext. [phone]; Back-up Ext. [phone] [place] Police, Danette VOGEL [phone] Introduction: Visit is being conducted by [place] [facility] Connect. [place] identified with 2 identifiers: [X] Full Name [X] Date of [ ] ME ID Card Emergency Plan: [place] confirmed and/or provided the following information in case of emergency or technology failure. PATIENT PHONE - PHONE NUMBER [CELLULAR] - Is patient phone number correct, if not, enter below: [place]'s phone number: ELVIN Pennington MARIBELL [address], [address] [place]'s present location and address for appointment: at home [place]'s emergency contact name and phone number: domestic partner, Anny Pickard [phone] reported that location is private and safe: Yes Informed Consent: [place] informed of the risks and benefits of Telehealth video care. [place] has the right to refuse video services. If refuses video visit, a yizc-ie-lvui visit will be scheduled. [place] verbalized consent for this video visit: Yes provided consent for any other persons present for visit: No If yes, who and relationship to patient: Secure visit: Visit was locked for security and privacy:Yes -=-=-=-=-=-=-=-=-=-=-=-=-=-=- =-=-=-=-=-==-=-=-=-=-=-=-=-=- =-=-=-=-=-=-=-=-=-=-=- -=-=-=-=-=-=-=-=-=-=-=-=-=-=- =-=-=-=-=-==-=-=-=-=-=-=-=-=- =-=-=-=-=-=-=-=-=-=-=- Program: Clinical Pharmacy Provider/Medication Management Speciality: Mental Health ATTENDED BY: [X] Patient [ ] Spouse/Caregiver LENGTH OF SESSION: 30minutes -=-=-=-=-=-=-=-=-=-=-=-=-=-=- =-=-=-=-=-==-=-=-=-=-=-=-=-=- =-=-=-=-=-=-=-=-=-=-=- Name: SHELLYLUCHOELVIN JR : Jul ID: 48yo WHITE MALE -=-=-=-=-=-=-=-=-=-=-=-=-=-=- =-=-=-=-=-==-=-=-=-=-=-=-=-=- =-=-=-=-=-=Subjective- [place] was last seen on [id number] with the following pharmacotherapeutic plan: [ ] No changes [X] Discontinue: sertraline [ ] Initiate: [ ] Change the following: Treating Dx(s): Anxiety INTERIM HISTORY pt w/ CC of I want to try medications again...anxiety has been intense lately. 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 states facing a fear compells fight/flight/free...but I feel like it should not be this uncomfortable. reports feeling irritable/burned out at the end the day and may begin warren-picking things towards his SO, and acknowledges that he may be projecting. reports sometimes waking up with anxiety. continues to see CC-therapist with good effect. states If I can get my anxiety down, then I think I can face my challenges. discussed trialing a different antidepressant, knowing very well the pt's history of side effects related to medications. medication education provided, to which the pt provided verbal understanding and agreed to the trial. -=-=-=-=-=-=-=-=-=-=-=-=-=-=- =-=-=-=-=-==-=-=-=-=-=-=-=-=- =-=-=-=-=-=-Objective- Mental Status Exam Appearance: [X] Unremarkable [X] Appropriate to season [ ] Neatly groomed [ ] Somewhat disheveled [ ] Other: Behavior Mood/Affect: [X] Appropriate [ ] Irritable [X] Normal [ ] Euphoric [ ] Pleasant [ ] Provocative [ ] Bright [ ] Depressed [ ] Anxious [ ] Frustrated [ ] Anxious [ ] Frustrated [ ] Maintained good eye contact [ ] Restricted [ ] Flat [ ] Other: [ ] Subdued [ ] Unremarkable [ ] Responsive & Congruent w/mood Energy: [ ] Other: [X] Normal [ ] Excessive [ ] Lethargic [ ] Variable Sleep: [ ] Other: [X] Normal [ ] Early awakening [ ] Sleep onset insomnia -N--Y- Orientation to: [ ] Frequent disruption [ ][X] Person [ ][X] Place Speech: [ ][X] Time [X] Normal [ ] Rapid [ ] Loud [ ] Flat [ ] Slow [ ] Soft Stream of thought: [ ] Other: [X] Normal [ ] Confused [ ] Tangential [ ] Derailed Insight/Judgment: [ ] Vague [ ] Repetitive [X] Normal [ ] Impaired [ ] No evidence of thought disorder [ ] No overt psychosis Other cognitive problems: [ ] Denies Flashbacks [X] Cognition intact [ ] Denies AH/VH [X] Logical and Linear [ ] Obsessions [ ] Paranoid/Delusions [X] Memory sufficient for interview [ ] Hallucinations: [ ] None [ ] Visuospatial [ ] Flashbacks: [ ] Attention [ ] Judgment [ ] Other: [ ] Abstraction Active problems - Computerized Problem List is the source for the followin. Gallbladder polyp 2. Pain in right arm 3. 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 Sleep apnea 6. Overweight 7. GERD - Gastro-Esophageal Reflux Disease ([facility] [id number]) 8. Anxiety ([facility] [id number]) 9. Hyperlipidemia ([facility] [id number]) 10. Fatty liver 11. Family history of diabetes mellitus ALLERGIES: Patient has answered NKA Active Outpatient Medications (including Supplies): Active Outpatient [...] CAP/TAB ACTIVE BY MOUTH 4 Total Medications Past psychiatric medications include the following: [X] Per CPRS: - atomoxetine (2022) - bupropion (; ) - buspirone (2009) - hydroxyzine (2004) - paroxetine (7466-9525) - risperidone (6376-9538) - sertraline () - trazodone (4846-7469) [X] Per Patient: - SI w/ bupropion Vitals: Ht: 66 in [167.6 cm] (08/26/2023 10:08) Wt: 252 lb [114.31 kg] (08/26/2023 10:08) BMI: 40.8 BP: 129/87 (08/26/2023 10:08) HR: 88 (08/26/2023 10:08) Labs: CHEM 7 TREND LAB CUMULATIVE SELECTED Collection DT Spec GLUCOSE BUN CREATIN Sodium K+/Pot CL CO2 08/26/2023 09:57 SERUM 98 16 1.01 140 4.2 109 21 02/28/2023 08:17 SERUM 88 14 1.00 140 4.2 105 24 08/27/2022 11:44 SERUM 93 13 1.14 138 4.4 105 23 04/11/2022 12:06 SERUM 83 14 1.00 137 4.6 106 22 LIVER PANEL TREND Collection DT Spec AST ALT T BILI ALK JAMIN T. PROT ALBUMIN 08/26/2023 09:57 SERUM 30 50 0.7 72 6.9 4.1 02/28/2023 08:17 SERUM 21 41 1.0 71 6.8 4.2 08/27/2022 11:44 SERUM 28 42 1.1 55 7.5 4.5 04/11/2022 12:06 SERUM 23 37 1.1 53 7.0 4.3 CBC TREND Collection DT Spec WBC RBC HGB HCT MCV MCH PLT 08/26/2023 09:57 BLOOD 7.02 5.84 H 16.5 48.2 82.5 28.3 207 02/28/2023 08:17 BLOOD 6.17 5.69 H 15.9 46.5 81.7 L 27.9 225 08/27/2022 11:44 BLOOD 7.48 6.04 H 16.5 48.5 80.3 L 27.3 238 04/11/2022 12:06 BLOOD 7.55 5.59 15.8 45.8 81.9 L 28.3 237 LIPID PANEL TREND Collection DT Spec CHOL HDL CHO/HDL LDL-c TRIG 08/26/2023 09:57 SERUM 220 H 34 L 6.5 169 H 85 02/28/2023 08:17 SERUM 179 29 L 6.2 127 117 08/27/2022 11:44 SERUM 199 32 L 6.2 147 H 102 04/11/2022 12:06 SERUM 199 32 L 6.2 145 H 109 HEMOGLOBIN A1C TREND Collection DT Spec HGBA1c 08/26/2023 09:57 BLOOD 5.0 02/28/2023 08:17 BLOOD 4.9 08/27/2022 11:44 BLOOD 5.2 04/11/2022 12:06 BLOOD 4.9 Estimated CrCl (based on IBW): ~73mL/min -=-=-=-=-=-=-=-=-=-=-=-=-=-=- =-=-=-=-=-==-=-=-=-=-=-=-=-=- =-=-=-=-=-=-=-=-=-=-=- ASSESSMENT The following review of all active psychotropic and CUSTOMER ADVOCACY MANAGER-active agents is to ensure pharmacotherapy is evaluated for safety and efficacy as they relate to behaviorial and physiological changes and outcomes Anxiety - currently not prescribed any medications at this time - noted recent of history of medication sensitivity, dispite several trials in the past. reasonable to trial trial different SSRI at low-dose and establish tolerance PLAN 1. Pharmacotherapy [ ] No changes [ ] Discontinue: [X] Initiate: escitalopram 2.5mg daily x14d then increase to 5mg daily [ ] Change the followin. Labs/tests: n/a 3. Consult(s) or Coordination of care: n/a 4. Other: n/a Education was provided to the regarding the above medication(s) risks, benefits, and alternatives; adverse drug reactions; expectations; and instructions for use. Findings/Plan was discussed with the patient and/or caregiver(s) whom provided verbal acknowledgement that the findings/plan was understood. The following counseling was specifically provided: [ ] Lab tests reviewed with patient [X] Instruction for management/treatment and/or follow-up [X] Importance of compliance with chosen treatment options [X] Risk Factor Reduction [ ] Other: RTC Interval: every 4-6weeks Next Apt: [id number] [place] was provided advertising copy writer's contact information and instructed to contact advertising copy writer as needed for any changes to scheduling or concerns otherwise. [place] is aware of actions to take if they feel unsafe, including calling the 's Crisis Line (#529); calling 911; or going to the nearest urgent care or emergency room. The is also aware of how to contact the clinic should the require additional services prior to the next appointment. Time spent on chart review, session, and documentation: 45minutes /es/ Hossein Frances PharmD Clinical Pharmacist Practitioner Signed: 09/03/2023 15:35 HOSSEIN FRANCES [facility]
--- OUTSIDE RECORDS SUMMARY | 2024-07-17 16:38 | XMS_ITS | Encounter Summary ---
Author Name [facility] [facility] [place] [facility] [place] Address [address] [facility], [place] [address] Care Team Providers Care Crm Dynamics Developer Name Role Phone LORETTA HANSON Primary Care [...] Gonzalez's Name Patient's Relationship to Policy Gonzalez [facility] MEDICAID [facility] Aug 05, 2021 01 [id number] ELVIN WALSH PATIENT Selected Encounter This section includes the information on record at [place] for the Encounter. Date/Time Encounter Type Encounter Description Reason Pro vider Source Aug 28, 2023 11:40 AM Outpatient Encounter PODIATRY IHE Encounter Template Text not used by [...] AMBULATORY [facility] [place] [facility] Sep 02, 2023 11:30 AM AMBULATORY [facility] [place] [facility] Sep 05, 2023 11:00 AM [facility]BULAT[facility] [place] [facility] Oct 07, 2023 11:30 AM AMBULATORY [facility] [place] [facility] Nov 01, 2023 11:00 AM [facility] [place] [facility] Nov 26, 2023 09:30 AM [facility] [place] [facility] Nov 26, 2023 10:30 AM [facility] [place] [facility] Nov 26, 2023 10:35 AM [facility]ULAT[facility] [place] [facility] Dec 03, 2023 01:30 PM AMBULATORY - REHAB MEDICIN [facility] [place] [facility] December 05, 2023 08:00 AM [facility]ULAT[facility] [place] [facility] December 10, 2023 03:00 PM AMBULATORY - REHAB MEDICIN [facility] [place] [facility] December 17, 2023 03:00 PM AMBULATORY - REHAB MEDICIN [facility] [place] [facility] December 24, 2023 03:00 PM AMBULATORY - REHAB MEDICIN E [facility] [place] [facility] January 01, 2024 11:00 AM AMBULATORY [facility] [place] [facility] Jan 07, 2024 09:30 AM AMBULATORY - [facility]AB MEDICIN [facility] [place] [facility] Jan 08, 2024 09:00 AM AMBULATORY - PS[facility]IATRY [facility] [place] [facility] Jan 21, 2024 10:30 AM [facility] [place] [facility] Jan 21, 2024 11:30 AM [facility]ULAT[facility] [place] [facility] Lab Results: +/- 30 days of the [...] Range Comment Aug 26, 2023 09:57 AM [facility] THYROID T4 FREE(FT4) Specimen Type: SERUM No comment entered. Ordering Provider: LEROY HANSON AM Report Released Date/Time: Aug 13, 2023 02:31 PM Reporting Lab: [facility] [address] [facility] [facility] [address] Performing Lab: [facility] [address] [address] THYROID T4 FREE(FT4) 0.98 ng/dL 0.6-1.6 Aug 26, 2023 09:57 AM [facility] HEMOGLOBIN A1C PANEL Specimen Type: BLOOD Comment: [...] Aug 13, 2023 02:31 PM Reporting Lab: [facility] [address] [facility] [facility] [address] Performing Lab: [facility] [address] [facility] [address] HEMOGLOBIN A1C 5.0 4.0-5.6 Aug 26, 2023 09:57 AM [facility] VITAMIN D (25-OH) Specimen Type: SERUM No comment entered. Ordering Provider: LEROY HANSON AM Report Released Date/Time: Aug 13, 2023 02:31 PM Reporting Lab: [facility] [address] [facility] [facility] [address] Performing Lab: [facility] [address] VITAMIN D (25-OH) 25 ng/mL 20-50 Aug 26, 2023 09:57 AM [facility] LIVER FUNCTION Specimen Type: SERUM No comment entered. Ordering Provider: LEROY HANSON AM Report Released Date/Time: Aug 13, 2023 02:31 PM Reporting Lab: [address] [address] Performing Lab: [address] [address] PROTEIN,TOTAL 6.9 g/dL 6.0-8.3 ALBUMIN 4.1 g/dL 3.5-5.0 ALKALINE PHOSPHATASE 72 U/L 40-150 AST 30 U/L 5-34 ALT 50 U/L BILIRUBIN, TOTAL 0.7 mg/dL 0.2-1.2 Aug 26, 2023 09:57 AM [facility] TSH Specimen Type: SERUM No comment entered. Ordering Provider: LEROY HANSON AM Report Released Date/Time: Aug 13, 2023 02:31 PM Reporting Lab: [address] [address] Performing Lab: [address] [address] TSH 2.36 u[IU]/mL 0.35-5.00 Aug 26, 2023 09:57 AM [facility] BASIC METABOLIC PANEL (fasting) Specimen Type: SERUM No comment entered. Ordering Provider: LEROY HANSON AM Report Released Date/Time: Aug 13, 2023 02:31 PM Reporting Lab: [address] [address] Performing Lab: [address] [address] UREA NITROGEN 16 mg/dL 7-25 GLUCOSE 98 mg/dL 65-100 SODIUM 140 mmol/L 135-145 POTASSIUM 4.2 mmol/L 3.5-5.0 CHLORIDE 109 mmol/L 100-110 CO2 21 meq/L 20-30 CREATININE, Serum 1.01 mg/dL 0.50-1.40 eGFR(CKD-EPI 2020) >90 mL/min >60 Aug 26, 2023 09:57 AM [facility] LIPID PANEL FASTING Specimen Type: SERUM No comment entered. Ordering Provider: LEROY HANSON AM Report Released Date/Time: Aug 13, 2023 02:31 PM Reporting Lab: [facility] [address] [facility] [facility] [address] Performing Lab: [facility] [address] [facility] [address] CHOLESTEROL 220 mg/dL H TRIGLYCERIDE 85 mg/dL 0-150 LDL calculated 169 mg/dL H 0-129 CHOL/HDL 6.5 HDL CHOLESTEROL 34 mg/dL L 40-60 Aug 26, 2023 09:57 AM [facility] CBC Specimen Type: BLOOD No comment entered. Ordering Provider: LEROY HANSON AM Report Released Date/Time: Aug 13, 2023 02:31 PM Reporting Lab: [facility] [address] [facility] [address] Performing Lab: [facility] [address] [facility] [address] WBC 7.02 10*3/uL 4.50-11.00 RBC 5.84 10*6/uL [...] place. Date/Time Current Smoking Status Comment Terri christensen Aug 26, 2023 10:00 AM [place]-TOBACCO FORMER USER [facility] Tobacco Use History This section includes a history of the smoking, or tobacco-related health factors, that were collected on or before the date of the Encounter. The data comes from the [place] facility where the Encounter took place. Date/Time Smoking Status/Tobacco Use Comment F acility Aug 26, 2023 10:00 AM [place] 15 YRS OR MORE [facility] Apr 11, 2022 11:00 AM VA-TOBACCO FORMER USER [facility] Apr 11, 2022 11:00 AM [place] 15 YRS OR MORE [facility] Advance Directives: All historical and current [...] Sep 27, 2005 ADVANCE DIRECTIVE SHARLENE SIDHU [facility] Sep 10, 2005 ADVANCE DIRECTIVE DISCUSSION FRANCE RODRIGEZ [facility] Aug 14, 2004 ADVANCE DIRECTIVE DISCUSSION REGULO AGUILAR [place] Encounter Notes: All associated encounter notes This section contains the clinical notes associated to the Encounter. Date/Time Encounter Note(s) Provider Source Aug 28, 2023 11:41 AM LETTERS: LOCAL TITLE: PATIENT LETTER (B) STANDARD TITLE: LETTERS DATE OF NOTE: AUG 28, 2023@11:41 ENTRY DATE: AUG 28, 2023@11:41:13 AUTHOR: JIMMY SAMPSON COSIGNER: URGENCY: STATUS: COMPLETED AUG 28, 2023 ELVIN REYNA [address] [place] [id number] Dear ELVIN REYNA JR Thank you for choosing the Department of [facility] ([place]) [facility] as your primary choice for health care. As a partner in your health care, we are contacting you in writing since we have been unsuccessful in our attempts to reach you to date. We want to assure you we are doing everything possible to schedule Veterans for their [place] medical care appointments. Our records indicate you are due for an appointment in PODIATRY. If you would like to be seen, please contact [facility] at ext. [phone] to schedule an appointment. Thank you for your service to our nation, and we look forward to hearing from you soon. Sincerely, [facility] [address] [facility] [address] [place] [address] [place] [address] [facility] [address] [facility] [address] [place] [address] [place] [address] ext. [phone] [facility] [address] [facility] [address] [place] [address] [place] [address] ext. [phone] JIMMY SAMPSON [facility] Aug 28, 2023 11:40 AM ADMINISTRATIVE NOTE: LOCAL TITLE: ADMINISTRATIVE RECALL NOTE STANDARD TITLE: ADMINISTRATIVE NOTE DATE OF NOTE: AUG 28, 2023@11:40 ENTRY DATE: AUG 28, 2023@11:40:40 AUTHOR: JIMMY SAMPSON EXP COSIGNER: URGENCY: STATUS: COMPLETED RTC orders: Unable to contact patient: Attempts to contact: 1st attempt: Left voicemail 2nd attempt: Letter mailedDisposition onSep 3rd attempt: 4th attempt: /roberto/ JIMMY SAMPSON LEAD FINISHER HAND Signed: 08/28/2023 11:41 JIMMY SAMPSON [facility]
--- OUTSIDE RECORDS SUMMARY | 2024-07-17 16:39 | XMS_ITS ---
Author Name [facility] [place] [facility] [place] [facility] [place] Address [address] [facility], [place] [address] Care Team Providers Care [place] Program Technician Name Role Phone LORETTA HANSON Primary Care [...] [place] [facility] Aug 05, 2021 01 [id number] [id number] ELVIN WALSH PATIENT Selected Encounter This section includes the information on record at [place] for the Encounter. Date/Time Encounter Type Encounter Description Reason Pro vider Source Sep 16, 2023 01:41 PM [facility] En[facility] Template Text not used by [place] Plan of Treatment: Future Appointments (+ 6 [...] 20 appointments. The data comes from all [place] treatment facilities. Appointment Date/Time Appointment Type Appointme nt Facility Name Oct 07, 2023 11:30 AM AMBULATORY - [facility]IAT[facility] [place] [facility] Nov 01, 2023 11:00 AM AMBULATORY [facility] MEDICINE [facility] [place] [facility] Nov 26, 2023 09:30 AM [facility]UL[facility]IC[facility] [place] [facility] Nov 26, 2023 10:30 AM [facility]UL[facility]IC[facility] [place] [facility] Nov 26, 2023 10:35 AM [facility]ULAT[facility]IC[facility] [place] [facility] Dec 03, 2023 01:30 PM AMBULATORY - REHAB MEDICIN [facility] [place] [facility] December 05, 2023 08:00 AM AMBULATORY [facility] MEDICINE [facility] [place] [facility] December 10, 2023 03:00 PM AMBULATORY - REHAB MEDICIN [facility] [place] [facility] December 17, 2023 03:00 PM AMBULATORY - REHAB MEDICIN [facility] [place] [facility] December 24, 2023 03:00 PM AMBULATORY - REHAB MEDICIN [facility] [place] [facility] January 01, 2024 11:00 AM AMBULATORY - MEDICINE [facility] [place] [facility] Jan 07, 2024 09:30 AM AMBULATORY - REHAB MEDICIN [facility] [place] [facility] Jan 08, 2024 09:00 AM AMBULATORY - PS[facility]CHIATRY [facility] [place] [facility] Jan 21, 2024 10:30 AM AMBULATORY - MEDICINE [facility] [place] [facility] Jan 21, 2024 11:30 AM AMBULATORY - MEDICINE [place] [facility] [place] [facility] Lab Results: +/- 30 days of the encounter This section includes the Chemistry and Hematology Lab Results on record with [place] for the patient. Radiology Reports and Pathology Reports are provided separately, in subsequent sections. Lab Results This section contains the Chemistry/Hematology Results that were resulted 30 days before or 30 daysafter the date of the Encounter. Date/Time Source Result Type Result - Unit Interpretation Reference Range Comment Aug 26, 2023 09:57 AM [facility] THYROID T4 FREE(FT4) Specimen Type: SERUM No comment entered. Ordering Provider: LEROY HANSON AM Report Released Date/Time: Aug 13, 2023 02:31 PM Reporting Lab: [facility] [address] [facility] [address] Performing Lab: [facility] [address] [facility] [address] THYROID T4 FREE(FT4) 0.98 ng/dL 0.6-1.6 Aug 26, 2023 09:57 AM [facility] HEMOGLOBIN A1C PANEL Specimen Type: BLOOD [...] Aug 13, 2023 02:31 PM Reporting Lab: [facility] [address] [facility] [address] Performing Lab: [facility] [address] [facility] [address] HEMOGLOBIN A1C 5.0 4.0-5.6 Aug 26, 2023 09:57 AM [facility] VITAMIN D (25-OH) Specimen Type: SERUM No comment entered. Ordering Provider: LEROY HANSON AM Report Released Date/Time: Aug 13, 2023 02:31 PM Reporting Lab: [facility] [address] [facility] [address] Performing Lab: [facility] [address] VITAMIN D (25-OH) 25 ng/mL 20-50 Aug 26, 2023 09:57 AM [facility] LIVER FUNCTION Specimen Type: SERUM No comment entered. Ordering Provider: LEROY HANSON AM Report Released Date/Time: Aug 13, 2023 02:31 PM Reporting Lab: [facility] [address] [facility] [address] Performing Lab: [address] [address] PROTEIN,TOTAL 6.9 g/dL 6.0-8.3 ALBUMIN 4.1 g/dL 3.5-5.0 ALKALINE PHOSPHATASE 72 U/L 40-150 AST 30 U/L 5-34 ALT 50 U/L BILIRUBIN, TOTAL 0.7 mg/dL 0.2-1.2 Aug 26, 2023 09:57 AM [facility] TSH Specimen Type: SERUM No comment entered. Ordering Provider: LEROY HANSON AM Report Released Date/Time: Aug 13, 2023 02:31 PM Reporting Lab: [address] [address] Performing Lab: [address] [address] TSH 2.36 u[IU]/mL 0.35-5.00 Aug 26, 2023 09:57 AM [facility] BASIC METABOLIC PANEL (fasting) Specimen Type: SERUM No comment entered. Ordering Provider: LEROY HANSON AM Report Released Date/Time: Aug 13, 2023 02:31 PM Reporting Lab: [address] [address] Performing Lab: [address] [address] UREA NITROGEN 16 mg/dL 7-25 GLUCOSE 98 mg/dL 65-100 SODIUM 140 mmol/L 135-145 POTASSIUM 4.2 mmol/L 3.5-5.0 CHLORIDE 109 mmol/L 100-110 CO2 21 meq/L 20-30 CREATININE, Serum 1.01 mg/dL 0.50-1.40 eGFR(CKD-EPI 2020) >90 mL/min >60 Aug 26, 2023 09:57 AM [facility] LIPID PANEL FASTING Specimen Type: SERUM No comment entered. Ordering Provider: LEROY HANSON AM Report Released Date/Time: Aug 13, 2023 02:31 PM Reporting Lab: [facility] [address] [facility] [address] Performing Lab: [facility] [address] [facility] [address] CHOLESTEROL 220 mg/dL H TRIGLYCERIDE 85 mg/dL 0-150 LDL calculated 169 mg/dL H 0-129 CHOL/HDL 6.5 HDL CHOLESTEROL 34 mg/dL L 40-60 Aug 26, 2023 09:57 AM [facility] CBC Specimen Type: BLOOD No comment entered. Ordering Provider: LEROY HANSON AM Report Released Date/Time: Aug 13, 2023 02:31 PM Reporting Lab: [address] [address] Performing Lab: [address] [address] WBC 7.02 10*3/uL 4.50-11.00 RBC 5.84 10*6/uL [...] and tobacco- related health factors from the [place] facility where the Encounter took place. Current Smoking Status This section includes the most current smoking, or tobacco-related health factor, from the [place] facility where the Encounter took place. Date/Time Current Smoking Status Comment Terri christensen Aug 26, 2023 10:00 AM VA-TOBACCO FORMER USER [facility] Tobacco Use History This section includes a history of the smoking, or tobacco-related health factors, that were collected on or before the date of the Encounter. The data comes from the [place] facility where the Encounter took place. Date/Time Smoking Status/Tobacco Use Comment F acility Aug 26, 2023 10:00 AM [place]-TOBACCO QUIT 15 YRS OR MORE [facility] Apr 11, 2022 11:00 AM [place]-TOBACCO FORMER USER [facility] Apr 11, 2022 11:00 AM [place]-TOBACCO QUIT 15 YRS OR MORE [facility] Advance Directives: All historical and current Section Date Range: From patient's date of to the date document was created. This section includes ALL of a patient's completed or amended [place] Advance and Rescinded Directives. The entries below indicate that a directive exists for the patient, but an actual copy is not included with this document. The data comes from all [place] facilities. Date Advance Directives Provider Source May 16, 2011 ADVANCE DIRECTIVE DISCUSSION TON SARAVIA Sep 27, 2005 ADVANCE DIRECTIVE SHARLENE SIDHU [facility] Sep 10, 2005 ADVANCE DIRECTIVE DISCUSSION FRANCE RODRIGEZ [facility] Aug 14, 2004 ADVANCE DIRECTIVE DISCUSSION REGULO AGUILAR Encounter Notes: All associated encounter notes This section contains the clinical notes associated to the Encounter. 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 Symptoms patient reports experiencing are insomnia, chest pains, nervousness, odd sensation in mouth and face. reports that he took 3 doses (1 1/2 pills/dose) in the am. is amenable to receiving a phone call from provider josh. /roberto/ MARIALUISA CHAVEZ ADVANCED PASS WORKER Signed: 09/16/2023 15:27 MARIALUISA CHAVEZ [facility]
--- OUTSIDE RECORDS SUMMARY | 2024-07-17 16:39 | XMS_ITS ---
Author Name [facility] [place] [facility] [place] Address [address] [place] [address] Care Team Providers Care Wheelman Name Role Phone LORETTA HANSON Primary Care [...] MEDICAID [place] Aug 05, 2021 [id number] ELVIN WALSH PATIENT Selected Encounter This section includes the information on record at NH for the Encounter. Date/Time Encounter Type Encounter Description Reason Provider Source Sep 05, 2023 11:00 AM MTMS BY PHARM ADDL 15 [facility] - IND ICD-10-CM F41.9 Anxiety disorder, unspecified MAGGIE FRANCES IHZahra Encounter Template Text not used by [place] Assessments - Encounter Diagnoses This section includes the primary and secondary diagnoses documented for the Encounter. Date/Time Primary/Secondary Diagnosis Diagnosis Name Provider Source Sep 05, 2023 11:20 AM PRIMARY Anxiety disorder, unspecified COLE,JASP ER SHWETA D [facility] [place] [facility] Plan of Treatment: Future Appointments (+ 6 months) and Future Tests (+/- 45 days) The Plan of Treatment section includes future care activities for the patient from all [place] [facility]. This section includes future appointments and future orders which are active, pending or scheduled. Future Appointments This section includes appointments that were scheduled to occur 6 months from the date of the Encounter, up to a maximum of 20 appointments. The data comes from all [place] treatment facilities. Appointment Date/Time Appointment Type Appointme nt Facility Name Oct 07, 2023 11:30 AM AMBULATORY - PSYCHIATRY [facility] [place] [facility] Nov 01, 2023 11:00 AM AMBULATORY - MEDICINE [facility] [place] [facility] Nov 26, 2023 09:30 AM AMBULATORY - MEDICINE [facility] [place] [facility] Nov 26, 2023 10:30 AM AMBULATORY - MEDICINE [facility] [place] [facility] Nov 26, 2023 10:35 AM AMBULATORY - MEDICINE [facility] [place] [facility] Dec 03, 2023 01:30 PM AMBULATORY - REHAB MEDICIN E [facility] [place] [facility] December 05, 2023 08:00 AM AMBULATORY - MEDICINE [facility] [place] [facility] December 10, 2023 03:00 PM AMBULATORY - REHAB MEDICIN E [facility] [place] [facility] December 17, 2023 03:00 PM AMBULATORY - REHAB MEDICIN E [facility] [place] [facility] December 24, 2023 03:00 PM AMBULATORY - REHAB MEDICIN E [facility] [place] [facility] January 01, 2024 11:00 AM AMBULATORY - MEDICINE [facility] [place] [facility] Jan 07, 2024 09:30 AM AMBULATORY - REHAB MEDICIN E [facility] [place] [facility] Jan 08, 2024 09:00 AM AMBULATORY - PS[facility]CHIATRY [facility] [place] [facility] Jan 21, 2024 10:30 AM AMBULATORY - MEDICINE [facility] [place] [facility] Jan 21, 2024 11:30 AM AMBULATORY - MEDICINE [facility] [place] [facility] Lab Results: +/- 30 days of the encounter This section includes the Chemistry and Hematology Lab Results on record with NH for the patient. Radiology Reports and Pathology Reports are provided separately, in subsequent sections. Lab Results This section contains the Chemistry/Hematology Results that were resulted 30 days before or 30 daysafter the date of the Encounter. Date/Time Source Result Type Result - Unit Interpretation Reference Range Comment Aug 26, 2023 09:57 AM [facility] THYROID T4 FREE(FT4) Specimen Type: SERUM No comment entered. Ordering Provider: LEROY HANSON AM Report Released Date/Time: Aug 13, 2023 02:31 PM Reporting Lab: [address] [address] Performing Lab: [facility] [address] [address] THYROID T4 FREE(FT4) 0.98 ng/dL 0.6-1.6 Aug 26, 2023 09:57 AM [facility] LIVER FUNCTION Specimen Type: SERUM No comment entered. Ordering Provider: LEROY HANSON AM Report Released Date/Time: Aug 13, 2023 02:31 PM Reporting Lab: [address] [address] Performing Lab: [address] [address] PROTEIN,TOTAL 6.9 g/dL 6.0-8.3 ALBUMIN 4.1 g/dL 3.5-5.0 ALKALINE PHOSPHATASE 72 U/L 40-150 AST 30 U/L 5-34 ALT 50 U/L BILIRUBIN, TOTAL 0.7 mg/dL 0.2-1.2 Aug 26, 2023 09:57 AM [facility] HEMOGLOBIN A1C PANEL Specimen Type: BLOOD [...] Aug 13, 2023 02:31 PM Reporting Lab: [facility] [address] [address] Performing Lab: [facility] [address] [address] HEMOGLOBIN A1C 5.0 4.0-5.6 Aug 26, 2023 09:57 AM [facility] VITAMIN D (25-OH) Specimen Type: SERUM No comment entered. Ordering Provider: LEROY HANSON AM Report Released Date/Time: Aug 13, 2023 02:31 PM Reporting Lab: [facility] [address] Performing Lab: [facility] [address] [address] VITAMIN D (25-OH) 25 ng/mL 20-50 Aug 26, 2023 09:57 AM [facility] TSH Specimen Type: SERUM No comment entered. Ordering Provider: LEROY HANSON AM Report Released Date/Time: Aug 13, 2023 02:31 PM Reporting Lab: [facility] [address] Performing Lab: [facility] [address] TSH 2.36 u[IU]/mL 0.35-5.00 Aug 26, 2023 09:57 AM [facility] CBC Specimen Type: BLOOD No comment entered. Ordering Provider: LEROY HANSON AM Report Released Date/Time: Aug 13, 2023 02:31 PM Reporting Lab: [facility] [address] [address] Performing Lab: [facility] [address] [address] WBC 7.02 10*3/uL 4.50-11.00 RBC 5.84 10*6/uL H 4.23-5.66 HGB 16.5 g/dL 12.8-17 HCT 48.2 39.2-50.4 MCV 82.5 fL 82-99 MCHC 34.2 g/dL 30.8-35.1 PLT 207 10*3/uL 140-360 RDW-CV 13.1 12.0-16.0 MCH 28.3 pg 26.2-32.6 Aug 26, 2023 09:57 AM [facility] LIPID PANEL FASTING Specimen Type: SERUM No comment entered. Ordering Provider: LEROY HANSON AM Report Released Date/Time: Aug 13, 2023 02:31 PM Reporting Lab: [address] [address] Performing Lab: [address] [address] CHOLESTEROL 220 mg/dL H TRIGLYCERIDE 85 mg/dL 0-150 LDL calculated 169 mg/dL H 0-129 CHOL/HDL 6.5 HDL CHOLESTEROL 34 mg/dL L 40-60 Aug 26, 2023 09:57 AM [facility] BASIC METABOLIC PANEL (fasting) Specimen Type: SERUM No comment entered. Ordering Provider: LEROY HANSON AM Report Released Date/Time: Aug 13, 2023 02:31 PM Reporting Lab: [address] [address] Performing Lab: [address] [address] UREA NITROGEN 16 mg/dL 7-25 GLUCOSE 98 [...] and tobacco- related health factors from the [place] facility where the Encounter took place. Current Smoking Status This section includes the most current smoking, or tobacco-related health factor, from the [place] facility where the Encounter took place. Date/Time Current Smoking Status Comment Facil ity Aug 26, 2023 10:00 AM NH-TOBACCO FORMER USER [facility] Tobacco Use History This section includes a history of the smoking, or tobacco-related health factors, that were collected on or before the date of the Encounter. The data comes from the [place] facility where the Encounter took place. Date/Time Smoking Status/Tobacco Use Comment F acility Aug 26, 2023 10:00 AM NH-TOBACCO QUIT 15 YRS OR MORE [facility] Apr 11, 2022 11:00 AM VA-TOBACCO FORMER USER [facility] Apr 11, 2022 11:00 AM NH-TOBACCO QUIT 15 YRS OR MORE [facility] Advance Directives: All historical and current Section Date Range: From patient's date of to the date document was created. This section includes ALL of a patient's completed or amended [place] Advance and Rescinded Directives. The entries below indicate that a directive exists for the patient, but an actual copy is not included with this document. The data comes from all [place] facilities. Date Advance Directives Provider Source May 16, 2011 ADVANCE DIRECTIVE DISCUSSION TON SARAVIA Sep 27, 2005 ADVANCE DIRECTIVE SHARLENE SIDHU [facility] Sep 10, 2005 ADVANCE DIRECTIVE DISCUSSION FRANCE RODRIGEZ [facility] Aug 14, 2004 ADVANCE DIRECTIVE DISCUSSION [place] Encounter Notes: All associated encounter notes This section contains the clinical notes associated to the Encounter. Date/Time Encounter Note(s) Provider Source Sep 05, 2023 11:04 AM PHARMACY MEDICATION MGT NOTE: LOCAL TITLE: CLINICAL PHARMACIST F/U NOTE STANDARD TITLE: PHARMACY MEDICATION MGT NOTE DATE OF NOTE: SEP 05, 2023@11:04 ENTRY DATE: SEP 05, 2023@11:04:24 AUTHOR: HOSSEIN FRANCES COSIGNER: URGENCY: STATUS: COMPLETED [facility] ([facility]VC) Standard Documentation VVC Clinician Resources Only: E911 (Emergency Call Relay Center): [phone] [facility] Line - 988 then press #1. [facility] Suicide Coordinator [phone], Ext. [phone]; Back-up Ext. [phone] [place] Police, Danette VOGEL [phone] Introduction: Visit is being conducted by [place] Video Connect. [place] identified with 2 identifiers: [X] Full Name [X] Date of [ ] VA ID Card Emergency Plan: confirmed and/or provided the following information in case of emergency or technology failure. PATIENT PHONE - PHONE NUMBER [CELLULAR] - Is patient phone number correct, if not, enter below: 's phone number: ELVIN Pennington MARIBELL [address] [place], [place], [address] [place]'s present location and address for appointment: at home 's emergency contact name and phone number: domestic partner, Anny Mendes [phone] reported that location is private and safe: Yes Informed Consent: informed of the risks and benefits of Telehealth video care. has the right to refuse video services. If refuses video visit, a [id number]-[id number] visit will be scheduled. verbalized consent for this video visit: Yes [place] provided consent for any other persons present for visit: No If yes, who and relationship to patient: Secure visit: Visit was locked for security and privacy:Yes -=-=-=-=-=-=-=-=-=-=-=-=-=-=- =-=-=-=-=-==-=-=-=-=-=-=-=-=- =-=-=-=-=-=-=-=-=-=-=- -=-=-=-=-=-=-=-=-=-=-=-=-=-=- =-=-=-=-=-==-=-=-=-=-=-=-=-=- =-=-=-=-=-=-=-=-=-=-=- Program: Clinical Pharmacy Provider/Medication Management Speciality: Mental Health ATTENDED BY: [X] Patient [ ] Spouse/Caregiver LENGTH OF SESSION: 30minutes -=-=-=-=-=-=-=-=-=-=-=-=-=-=- =-=-=-=-=-==-=-=-=-=-=-=-=-=- =-=-=-=-=-=-=-=-=-=-=- Name: ELVIN REYNA : Jul ID: 48yo WHITE MALE -=-=-=-=-=-=-=-=-=-=-=-=-=-=- =-=-=-=-=-==-=-=-=-=-=-=-=-=- =-=-=-=-=-=Subjective- was last seen on [id number] with the following pharmacotherapeutic plan: [ ] No changes [ ] Discontinue: [X] Initiate: escitalopram 2.5mg daily x14d then increase to 5mg daily [ ] Change the following: Treating Dx(s): Anxiety INTERIM HISTORY pt being seen today per pt's request d/t uncomfortable experience with escitalopram. reports withing a couple of hours of administration, experienced blurry vision, disorientation, confusion, irritation, sweating, and labored breathing. contemplated seeking medical attention, but reports that the side effects subsided, to which he just felt exhausted afterwards. discussed trial of buspirone as he does not appear to tolerate SSRIs, despite having prescribe SSRIs in the past. medication education provided, to which the pt provided verbal understanding. also discussed genetic testing d/t his recent experiences with medication, which he agreed. -=-=-=-=-=-=-=-=-=-=-=-=-=-=- =-=-=-=-=-==-=-=-=-=-=-=-=-=- =-=-=-=-=-=-Objective- Mental Status Exam Appearance: [X] Unremarkable [X] Appropriate to season [ ] Neatly groomed [ ] Somewhat disheveled [ ] Other: Behavior Mood/Affect: [X] Appropriate [ ] Irritable [X] Normal [ ] Euphoric [ ] Pleasant [ ] Provocative [ ] Bright [ ] Depressed [ ] Anxious [ ] Frustrated [X] Anxious [ ] Frustrated [ ] Maintained [...] Overweight 7. GERD - Gastro-Esophageal Reflux Disease ([facility] [id number]) 8. Anxiety ([facility] [id number]) 9. Hyperlipidemia ([facility] [id number]) 10. Fatty liver 11. Family history of diabetes mellitus ALLERGIES: Patient has answered NKA Active Outpatient Medications (including Supplies): Active Outpatient Medications Status 1) AZELASTINE 137MCG/SPRAY 200D NASAL INHL SPRAY 1 SPRAY ACTIVE INTO EACH NOSTRIL ONCE DAILY FOR SEASONAL RUNNY NOSE 2) CHOLECALCIF 50MCG (D3-2,000UNIT) TAB TAKE ONE TABLET ACTIVE BY MOUTH ONCE DAILY FOR VITAMIN SUPPLEMENTATION 3) ESCITALOPRAM OXALATE 5MG TAB TAKE ONE-HALF TABLET BY ACTIVE MOUTH ONCE DAILY FOR 14 DAYS, THEN TAKE ONE TABLET ONCE DAILY FOR MOOD/DEPRESSION 4) TABLET CUTTER (PILL SPLITTER) USE CUTTER DIRECTED ACTIVE DIRECTED BY PROVIDER TO SPLIT TABLETS Active Non-VA Medications Status 1) Non-VA PROBIOTIC (CULTURELLE DIGESTIVE DAILY) CAP/TAB ACTIVE BY MOUTH 5 Total Medications Past psychiatric medications include the following: [X] Per CPRS: - atomoxetine (2022) - bupropion (; ) - buspirone (2009) - hydroxyzine (2004) - paroxetine () - risperidone () - sertraline () - trazodone ([id number]) [X] Per Patient: - SI w/ bupropion [...] following review of all active psychotropic and PROVIDER RELATIONS REPRESENTATIVE-active agents is to ensure pharmacotherapy is evaluated for safety and efficacy as they relate to behaviorial and physiological changes and outcomes Anxiety - escitalopram 2.5mg > unable to tolerate medication after one dose > will forego SSRIs at this time and trial buspirone PLAN 1. Pharmacotherapy [ ] No changes [X] Discontinue: escitalopram [X] Initiate: buspirone 2.5mg bid [ ] Change the followin. Labs/tests: n/a 3. Consult(s) or Coordination of care: PHASER consult pending 4. Other: n/a Education was provided to [...] Other: RTC Interval: every 4-6weeks Next Apt: [id number] [place] was provided underwriter's contact information and instructed to contact underwriter as needed for any changes to scheduling or concerns otherwise. is aware of actions to take if they feel unsafe, including calling the 's Crisis Line (#481); calling 911; or going to the nearest urgent care or emergency room. The is also aware of how to contact the clinic should the require additional services prior to the next appointment. Time spent on chart review, session, and documentation: 30minutes /es/ Hossein Frances PharmD Clinical Pharmacist Practitioner Signed: 09/13/2023 12:44 [facility]IN FRANCES [facility]
--- OUTSIDE RECORDS SUMMARY | 2024-07-17 16:39 | XMS_ITS ---
Author Name [facility] [place] Address [address] [place] [address] Care Team Providers Care Forensic Dna Analyst Name Role Phone LORETTA HANSON Primary Care [...] [place] Aug 05, 2021 01 [id number] ELVIN WALSH PATIENT Selected Encounter This section includes the information on record at [place] for the Encounter. Date/Time Encounter Type Encounter Description Reason Provider Source Nov 26, 2023 09:30 AM OFF/OP EST DECEMBER X REQ PHY/QHP PRIMARY CARE/MEDICINE ICD-10-CM Z71.89 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ed counseling INES CHAMORRO IHZahra Encounter Template Text not used by [facility] Assessments - Encounter Diagnoses This section includes the primary and secondary diagnoses documented for the Encounter. Date/Time Primary/Secondary Diagnosis Diagnosis Name Provider Source Nov 26, 2023 10:05 AM PRIMARY 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ed counseling INES CHAMORRO [facility] [place] [facility] Plan of Treatment: Future Appointments (+ 6 months) and Future Tests (+/- 45 days) The Plan of Treatment section includes future care activities for the patient from all [place] [facility]. This section includes future appointments and future orders which are active, pending or scheduled. Future Appointments This section includes appointments that were scheduled to occur 6 months from the date of the Encounter, up to a maximum of 20 appointments. The data comes from all [place] treatment facilities. Appointment Date/Time Appointment Type Appointme nt Facility Name Dec 03, 2023 01:30 PM AMBULATORY - REHAB MEDICIN E [facility] [place] [facility] December 05, 2023 08:00 AM AMBULATORY - MEDICINE [facility] [place] [facility] December 10, 2023 03:00 PM AMBULATORY - REHAB MEDICIN E [facility] [place] [facility] December 17, 2023 03:00 PM AMBULATORY - REHAB MEDICIN E [facility] [place] [facility] December 24, 2023 03:00 PM AMBULATORY - REHAB MEDICIN E [facility] [place] [facility] January 01, 2024 11:00 AM AMBULATORY - MEDICINE [facility] [place] [facility] Jan 07, 2024 09:30 AM AMBULATORY - REHAB MEDICIN E [facility] [place] [facility] Jan 08, 2024 09:00 AM AMBULATORY - PSYCHIATRY [facility] [place] [facility] Jan 21, 2024 10:30 AM AMBULATORY - MEDICINE [facility] [place] [facility] Jan 21, 2024 11:30 AM AMBULATORY - MEDICINE [facility] [place] [facility] Apr 24, 2024 02:00 PM AMBULATORY - MEDICINE [facility] [place] [facility] Apr 29, 2024 01:00 PM AMBULATORY - MEDICINE [facility] [place] [facility] Apr 29, 2024 02:00 PM AMBULATORY - MEDICINE [facility] [place] [facility] May 13, 2024 09:30 AM AMBULATORY - MEDICINE [facility] [place] [facility] May 21, 2024 11:00 AM AMBULATORY - MEDICINE [facility] May 22, 2024 01:30 PM AMBULATORY - MEDICINE [facility] Lab Results: +/- 30 days of the encounter This section includes the Chemistry and Hematology Lab Results on record with [place] for the patient. Radiology Reports and Pathology Reports are provided separately, in subsequent sections. Lab Results This section contains the Chemistry/Hematology Results that were resulted 30 days before or 30 daysafter the date of the Encounter. Date/Time Source Result Type Result - Unit Interpretation Reference Range Comment Nov 11, 2023 09:54 AM [facility] [id number] PGx Specimen Type: BLOOD Comment: SPECIMEN SHIPPED ON MANIFEST [id number] Ordering Provider: MAGGIE GALVAN Report Released Date/Time: Sep 13, 2023 12:46 PM Reporting Lab: [address] [address] Performing Lab: [facility] Vital Signs: All taken on the encounter date This section contains inpatient and outpatient Vital Signs collected on the date of the Encounter. Date/Time Temperature Pulse Blood Pressure Respiratory Rate SP02 Pain Height Weight Body Mass Index Source Nov 26, 2023 10:01 AM 98.8 94 126/80 16 0 [facility] Social History: Smoking Status (Most current) and Tobacco Use (All prior to encounter date) This section includes the most current, and the historical, smoking and tobacco- related health factors from the [place] facility where the Encounter took place. Current Smoking Status This section includes the most current smoking, or tobacco-related health factor, from the [place] facility where the Encounter took place. Date/Time Current Smoking Status Comment Terri ity Aug 26, 2023 10:00 AM VA-TOBACCO FORMER USER [facility] Tobacco Use History This section includes a history of the smoking, or tobacco-related health factors, that were collected on or before the date of the Encounter. The data comes from the [place] facility where the Encounter took place. Date/Time Smoking Status/Tobacco Use Comment F acility Aug 26, 2023 10:00 AM [place]-TOBACCO QUIT 15 YRS OR MORE [facility] Apr 11, 2022 11:00 AM [place]-TOBACCO FORMER USER [facility] Apr 11, 2022 11:00 AM VA-TOBACCO QUIT 15 YRS OR MORE [facility] Advance Directives: All historical and current Section Date Range: From patient's date of to the date document was created. This section includes ALL of a patient's completed or amended [place] Advance and Rescinded Directives. The entries below indicate that a directive exists for the patient, but an actual copy is not included with this document. The data comes from all [place] facilities. Date Advance Directives Provider Source May 16, 2011 ADVANCE DIRECTIVE DISCUSSION TON SARAVIA Sep 27, 2005 ADVANCE DIRECTIVE SHARLENE SIDHU [facility] Sep 10, 2005 ADVANCE DIRECTIVE DISCUSSION FRANCE RODRIGEZ [facility] Aug 14, 2004 ADVANCE DIRECTIVE DISCUSSION [place] Encounter Notes: All associated encounter notes This section contains the clinical notes associated to the Encounter. Date/Time Encounter Note(s) Provider Source Nov 26, 2023 10:01 AM PRIMARY CARE OUTPA TIENT NOTE: LOCAL TITLE: AMBULATORY/OUTPATIENT CARE NOTE STANDARD TITLE: PRIMARY CARE OUTPATIENT NOTE DATE OF NOTE: NOV 26, 2023@10:01 ENTRY DATE: NOV 26, 2023@10:01:58 AUTHOR: INGRID CHAMORRO EXP COSIGNER: URGENCY: STATUS: COMPLETED F: Walk In D/A: Vet presents to primary care with complaint of left eye irritation since yesterday. Vet reports yesterday afternoon noticed the lateral aspect of his left eye was hot and itchy. He flushed with water several times with some relief but irritation resumed shortly after. Vet reports irritation comes and goes, denies any change in vision. Vet does report treating jock itch this past week and is concerned for any cross contamination. Vet states right eye has no issues. On exam sclera of bilateral eyes WNL, not reddened. Left eye lateral lower lid appears reddened as compared to rest of lid. Bilateral eyes are watery. Vet does report some crusting this am upon waking to left lateral eye. R: Vet to see [place] provider today /roberto/ Ingrid Chamorro MSN RN CNL Primary Care RN Signed: 11/26/2023 10:05 Receipt Acknowledged By: 11/26/2023 10:17 /es/ GANGA GIVENS, MS,PA-C PHYSICIAN CORPORATE CONCIERGE INGRID CHAMORRORL [facility] MEDICAL CENTERSamantha HAND [facility]
--- OUTSIDE RECORDS SUMMARY | 2024-07-17 16:39 | XMS_ITS | Encounter Summary ---
Author Name [facility] [facility] [place] Organization [facility] [place] Address [address], [place] [address] Care Team Providers Care Wood Tank Erector Name Role Phone LORETTA HANSON Primary Care [...] Gonzalez's Name Patient's Relationship to Policy Gonzalez [facility] MEDICAID [facility] Aug 05, 2021 01 [id number] ELVIN WALSH PATIENT Selected Encounter This section includes the information on record at [place] for the Encounter. Date/Time Encounter Type Encounter Description Reason Pro vider Source Nov 22, 2023 12:45 PM Outpatient Encounter PODIATRY IHE Encounter Template Text not used by [place] Plan of Treatment: Future Appointments (+ 6 [...] Date/Time Appointment Type Appointme nt Facility Name Nov 26, 2023 09:30 AM AMBULATORY [facility] MEDICINE [facility] [place] [facility] Nov 26, 2023 10:30 AM AMBULATORY - MEDICINE [facility] [place] [facility] Nov 26, 2023 10:35 AM AMBULATORY - MEDICINE [facility] [place] [facility] Dec 03, 2023 01:30 PM AMBULATORY - REHAB MEDICIN E [facility] [place] [facility] December 05, 2023 08:00 AM AMBULATORY - MEDICINE [facility] [place] [facility] December 10, 2023 03:00 PM AMBULATORY - REHAB MEDICIN E [facility] [place] [facility] December 17, 2023 03:00 PM AMBULATORY - REHAB MEDICIN E [facility] [place] [facility] December 24, 2023 03:00 PM AMBULATORY - REHAB MEDICIN E [facility] [place] [facility] January 01, 2024 11:00 AM AMBULATORY - MEDICINE [facility] [place] [facility] Jan 07, 2024 09:30 AM AMBULATORY - REHAB MEDICIN E [facility] [place] [facility] Jan 08, 2024 09:00 AM AMBULATORY - PSYCHIATRY [facility] [place] [facility] Jan 21, 2024 10:30 AM AMBULATORY - MEDICINE [facility] [place] [facility] Jan 21, 2024 11:30 AM AMBULATORY - MEDICINE [facility] [place] [facility] Apr 24, 2024 02:00 PM AMBULATORY - MEDICINE [facility] [place] [facility] Apr 29, 2024 01:00 PM AMBULATORY - MEDICINE [facility] [place] [facility] Apr 29, 2024 02:00 PM AMBULATORY - MEDICINE [facility] [place] [facility] May 13, 2024 09:30 AM AMBULATORY - MEDICINE [facility] [place] [facility] May 21, 2024 11:00 AM AMBULATORY - MEDICINE [facility] [place] [facility] May 22, 2024 01:30 PM AMBULATORY - MEDICINE [facility] [place] [facility] Lab Results: +/- 30 days [...] Range Comment Nov 11, 2023 09:54 AM [facility] [id number] Specimen Type: BLOOD Comment: SPECIMEN SHIPPED ON MANIFEST [id number] Ordering Provider: MAGGIE GALVAN Report Released Date/Time: Sep 13, 2023 12:46 PM Reporting Lab: [address] [address] Performing Lab: [facility] Social History: Smoking Status (Most current) [...] took place. Date/Time Current Smoking Status Comment Treri ity Aug 26, 2023 10:00 AM [place]-TOBACCO FORMER USER [facility] Tobacco Use History This section includes a history of the smoking, or tobacco-related health factors, that were collected on or before the date of the Encounter. The data comes from the [place] facility where the Encounter took place. Date/Time Smoking Status/Tobacco Use Comment F acility Aug 26, 2023 10:00 AM ME-TOBACCO QUIT 15 YRS OR MORE [facility] Apr 11, 2022 11:00 AM VA-TOBACCO FORMER USER [facility] Apr 11, 2022 11:00 AM [place]-TOBACCO QUIT 15 YRS OR MORE [facility] Advance Directives: All historical and current Section Date Range: From patient's date of to the date document was created. This section includes ALL of a patient's completed or amended VA Advance and Rescinded Directives. The entries below indicate that a directive exists for the patient, but an actual copy is not included with this document. The data comes from all [place] facilities. Date Advance Directives Provider Source May 16, 2011 ADVANCE DIRECTIVE DISCUSSION TON SARAVIA Sep 27, 2005 ADVANCE DIRECTIVE SHARLENE SIDHU [facility] Sep 10, 2005 ADVANCE DIRECTIVE DISCUSSION FRANCE RODRIGEZ [facility] Aug 14, 2004 ADVANCE DIRECTIVE DISCUSSION REGULO AGUILAR [place] Encounter Notes: All associated encounter notes This section contains the clinical notes associated to the Encounter. Date/Time Encounter Note(s) Provider Source Nov 22, 2023 12:45 PM TELEPHONE ENCOUNTE R NOTE: LOCAL TITLE: TELEPHONE NOTE/SPECIALTY CLINIC STANDARD TITLE: TELEPHONE ENCOUNTER NOTE DATE OF NOTE: NOV 22, 2023@12:45 ENTRY DATE: NOV 22, 2023@12:54:50 AUTHOR: ZARA PHILLIPS SA EXP COSIGNER: URGENCY: STATUS: COMPLETED AMSA LVM for [place] Reminding of OPTOMETRY appt on 12/05/2023 AT 8:00AM. asked if unable to keep appt to call and Reschedule- [phone] Ext: [phone]- location given /roberto/ ZARA PHILLIPS Signed: 11/22/2023 12:56 ZARA PHILLIPS [place] [facility]
--- OUTSIDE RECORDS SUMMARY | 2024-07-17 16:39 | XMS_ITS ---
Author Name [facility] [place] Organization [place] Address [address] [place] [address] Care Team Providers Care Prenatal Genetic Counselor Name Role Phone LORETTA HANSON Primary Care [...] [place] Aug 05, 2021 01 [id number] ELVIN WALSH PATIENT Selected Encounter This section includes the information on record at [place] for the Encounter. Date/Time Encounter Type Encounter Description Reason Provider Source Nov 01, 2023 11:00 AM FIT SPECTACLES MULTIFOCAL OPTOMETRY ICD-10-CM Z46.0 Encounter for fit/adjst of spectacles and contact lenses EVA LYNNE Zahra Encounter Template Text not used by VA Assessments - Encounter Diagnoses This section includes the primary and secondary diagnoses documented for the Encounter. Date/Time Primary/Secondary Diagnosis Diagnosis Name Provider Source Nov 01, 2023 11:48 AM PRIMARY Encounter for fit/adjst of spectacles and contact lenses EVA LYNNE [place] [facility] [place] [facility] Plan of Treatment: Future Appointments (+ 6 months) and Future Tests (+/- 45 days) The Plan of Treatment section includes future care activities for the [facility] [place] [facility] This section includes future appointments and future orders which are active, pending or scheduled. Future Appointments This section includes appointments that were scheduled to occur 6 months from the date of the Encounter, up to a maximum of 20 appointments. The data comes from all [place] treatment facilities. Appointment Date/Time Appointment Type Appointme nt Facility Name Nov 26, 2023 09:30 AM AMBULATORY - MEDICINE [facility] [place] [facility] Nov 26, 2023 10:30 AM AMBULATORY - MEDICINE [facility] [place] [facility] Nov 26, 2023 10:35 AM AMBULATORY - MEDICINE [facility] [place] [facility] Dec 03, 2023 01:30 PM AMBULATORY - REHAB MEDICIN E [facility] [place] [facility] December 05, 2023 08:00 AM AMBULATORY - MEDICINE [facility] [place] [facility] December 10, 2023 03:00 PM AMBULATORY - REHAB MEDICIN E [facility] [place] [facility] December 17, 2023 03:00 PM AMBULATORY - REHAB MEDICIN E [facility] [place] [facility] December 24, 2023 03:00 PM AMBULATORY - REHAB MEDICIN E [facility] [place] [facility] January 01, 2024 11:00 AM AMBULATORY - MEDICINE [facility] [place] [facility] Jan 07, 2024 09:30 AM AMBULATORY - REHAB MEDICIN E [facility] [place] [facility] Jan 08, 2024 09:00 AM AMBULATORY - PSYCHIATRY [facility] [place] [facility] Jan 21, 2024 10:30 AM AMBULATORY - MEDICINE [facility] [place] [facility] Jan 21, 2024 11:30 AM AMBULATORY - MEDICINE [facility] [place] [facility] Apr 24, 2024 02:00 PM AMBULATORY - MEDICINE [facility] [place] [facility] Apr 29, 2024 01:00 PM AMBULATORY - MEDICINE [facility] Apr 29, 2024 02:00 PM AMBULATORY - MEDICINE [facility] Lab Results: +/- 30 days of the encounter This section includes the Chemistry and Hematology Lab Results on record with [place] for the patient. Radiology Reports and Pathology Reports are provided separately, in subsequent sections. Lab Results This section contains the Chemistry/Hematology Results that were resulted 30 days before or 30 daysafter the date of the Encounter. Date/Time Source Result Type Result - Unit Interpretation Reference Range Comment Nov 11, 2023 09:54 AM [facility] [id number] PGx Specimen Type: BLOOD Comment: SPECIMEN SHIPPED ON MANIFEST [id number] Ordering Provider: MAGGIE GALVAN Report Released Date/Time: Sep 13, 2023 12:46 PM Reporting Lab: [address] [address] Performing Lab: [facility] Social History: Smoking Status (Most current) and Tobacco Use (All prior to encounter date) This section includes the most current, and the historical, smoking and tobacco- related health factors from the [place] facility where the Encounter took place. Current Smoking Status This section includes the most current smoking, or tobacco-related health factor, from the [place] facility where the Encounter took place. Date/Time Current Smoking Status Comment Terri ity Aug 26, 2023 10:00 AM VA-TOBACCO FORMER USER [facility] Tobacco Use History This section includes a history of the smoking, or tobacco-related health factors, that were collected on or before the date of the Encounter. The data comes from the [place] facility where the Encounter took place. Date/Time Smoking Status/Tobacco Use Comment F acility Aug 26, 2023 10:00 AM [place]-TOBACCO QUIT 15 YRS OR MORE [facility] Apr 11, 2022 11:00 AM VA-TOBACCO FORMER USER [facility] Apr 11, 2022 11:00 AM [place]-TOBACCO QUIT 15 YRS OR MORE [facility] Advance Directives: All historical and current Section Date Range: From patient's date of to the date document was created. This section includes ALL of a patient's completed or amended [place] Advance and Rescinded Directives. The entries below indicate that a directive exists for the patient, but an actual copy is not included with this document. The data comes from all [place] facilities. Date Advance Directives Provider Source May 16, 2011 ADVANCE DIRECTIVE DISCUSSION TON SARAVIA [place] Sep 27, 2005 ADVANCE DIRECTIVE SHARLENE SIDHU [facility] Sep 10, 2005 ADVANCE DIRECTIVE DISCUSSION FRANCE RODRIGEZ [facility] Aug 14, 2004 ADVANCE DIRECTIVE DISCUSSION REGULO AGUILAR [place] Encounter Notes: All associated encounter notes This section contains the clinical notes associated to the Encounter. Date/Time Encounter Note(s) Provider Source Nov 01, 2023 11:36 AM OPTOMETRY NOTE: LOCAL TITLE: OPTOMETRY NOTE STANDARD TITLE: OPTOMETRY NOTE DATE OF NOTE: NOV 01, 2023@11:36 ENTRY DATE: NOV 01, 2023@11:36:39 AUTHOR: EVA LYNNE EXP COSIGNER: URGENCY: STATUS: COMPLETED Patient noticed some spots on lenses of glasses, at certain angles, and under certain lighting conditions. After these spots were pointed out and the glasses lenses were fully cleaned and dried here, they remained, and it was determined they were due to the AR coating starting to come off. Glasses were reordered, and patient was re educated on proper cleaning using rojelio dish detergent and warm water, then patting dry with a paper towel. /roberto/ EVA LYNNE OPTOMETRY TECH Signed: 11/01/2023 11:48 EVA LYNNE [place] [facility]
--- OUTSIDE RECORDS SUMMARY | 2024-07-17 16:39 | XMS_ITS | Encounter Summary ---
Author Name [facility] [place] Address [address], [place] [address] Care Team Providers Care Food Dehydrator Operator Name Role Phone LORETTA HANSON Primary Care [...] [place] Aug 05, 2021 01 [id number] ELVIN WALSH PATIENT Selected Encounter This section includes the information on record at [place] for the Encounter. Date/Time Encounter Type Encounter Description Reason Provider Source Nov 12, 2023 08:09 AM Outpatient Encounter PRIMARY CARE/MEDICINE ISRA CHAMORRO Zahra Encounter Template Text not used by [place] Plan of Treatment: Future Appointments (+ 6 [...] 20 appointments. The data comes from all [place] treatment facilities. Appointment Date/Time Appointment Type Appointme nt Facility Name Nov 26, 2023 09:30 AM AMBULATORY - MEDICINE [facility] [place] [facility] Nov 26, 2023 10:30 AM AMBULATORY - MEDICINE [facility] [place] [facility] Nov 26, 2023 10:35 AM AMBULATORY - MEDICINE [facility] [place] [facility] Dec 03, 2023 01:30 PM AMBULATORY - REHAB MEDICIN E [facility] [place] [facility] December 05, 2023 08:00 AM AMBULATORY - MEDICINE [facility] [place] [facility] December 10, 2023 03:00 PM AMBULATORY - REHAB MEDICIN E [facility] [place] [facility] December 17, 2023 03:00 PM AMBULATORY - REHAB MEDICIN E [facility] [place] [facility] December 24, 2023 03:00 PM AMBULATORY - REHAB MEDICIN E [facility] [place] [facility] January 01, 2024 11:00 AM AMBULATORY - MEDICINE [facility] [place] [facility] Jan 07, 2024 09:30 AM AMBULATORY - REHAB MEDICIN E [facility] [place] [facility] Jan 08, 2024 09:00 AM AMBULATORY - PSYCHIATRY [facility] [place] [facility] Jan 21, 2024 10:30 AM AMBULATORY - MEDICINE [facility] [place] [facility] Jan 21, 2024 11:30 AM AMBULATORY - MEDICINE [facility] [place] [facility] Apr 24, 2024 02:00 PM AMBULATORY - MEDICINE [facility] [place] [facility] Apr 29, 2024 01:00 PM AMBULATORY - MEDICINE [facility] [place] [facility] Apr 29, 2024 02:00 PM AMBULATORY - MEDICINE [facility] [place] [facility] May 13, 2024 09:30 AM AMBULATORY - MEDICINE [facility] [place] [facility] Lab Results: +/- 30 days of the encounter This section includes the Chemistry and Hematology Lab Results on record with [place] for the patient. Radiology Reports and Pathology Reports are provided separately, in subsequent sections. Lab Results This section contains the Chemistry/Hematology Results that were resulted 30 days before or 30 daysafter the date of the Encounter. Date/Time Source Result Type Result - Unit Interpretation Reference Range Comment Nov 11, 2023 09:54 AM [facility] [id number] PGx Specimen Type: BLOOD Comment: SPECIMEN SHIPPED ON MANIFEST [id number] Ordering Provider: MAGGIE GALVAN Report Released Date/Time: Sep 13, 2023 12:46 PM Reporting Lab: [facility] [address] [address] Performing Lab: [facility] Social History: Smoking Status (Most current) and Tobacco Use (All prior to encounter date) This section includes the most current, and the historical, smoking and tobacco- related health factors from the [place] facility where the Encounter took place. Current Smoking Status This section includes the most current smoking, or tobacco-related health factor, from the [place] facility where the Encounter took place. Date/Time Current Smoking Status Comment Facil ity Aug 26, 2023 10:00 AM [place]-TOBACCO FORMER USER [facility] Tobacco Use History This section includes a history of the smoking, or tobacco-related health factors, that were collected on or before the date of the Encounter. The data comes from the [place] facility where the Encounter took place. Date/Time Smoking Status/Tobacco Use Comment F acility Aug 26, 2023 10:00 AM [place]-TOBACCO QUIT 15 YRS OR MORE [facility] Apr 11, 2022 11:00 AM VA-TOBACCO FORMER USER [facility] Apr 11, 2022 11:00 AM [place]-TOBACCO QUIT 15 YRS OR MORE [facility] Advance Directives: All historical and current Section Date Range: From patient's date of to the date document was created. This section includes ALL of a patient's completed or amended [place] Advance and Rescinded Directives. The entries below indicate that a directive exists for the patient, but an actual copy is not included with this document. The data comes from all [place] facilities. Date Advance Directives Provider Source May 16, 2011 ADVANCE DIRECTIVE DISCUSSION [place]ON [place] Sep 27, 2005 ADVANCE DIRECTIVE NAHUMSHARLENE BESS [facility] Sep 10, 2005 ADVANCE DIRECTIVE DISCUSSION FRANCE RODRIGEZ JAMES [facility] Aug 14, 2004 ADVANCE DIRECTIVE DISCUSSION REGULO AGUILAR [place] Encounter Notes: All associated encounter notes This section contains the clinical notes associated to the Encounter. Date/Time Encounter Note(s) Provider Source Nov 12, 2023 08:09 AM PRIMARY CARE SECUR E MESSAGING: LOCAL TITLE: PRIMARY CARE SECURE MESSAGING STANDARD TITLE: PRIMARY CARE SECURE MESSAGING DATE OF NOTE: NOV 12, 2023@08:09 ENTRY DATE: NOV 12, 2023@09:09:34 AUTHOR: INGRID CHAMORRO EXP COSIGNER: URGENCY: STATUS: COMPLETED ------Original Message ------- Sent: 11/11/2023 02:14 PM ET From: ELVIN BOYD To: Krysten HANSON_PRIMARY CARE_[facility] Subject: General:OT Consult [facility], Are you able to renew the OT consult for my right arm, or do I need to visit the office in person? I have been experiencing pain in my upper right arm when trying to articulate certain positions and movements in my range of motion. I thought it might be related to my prior injury. Thank you! ------Original Message ------- Sent: 11/12/2023 09:09 AM ET From: INGRID CHAMORRO To: ELVIN BOYD Subject: General:OT Consult Good Morning Mr. Boyd, I will alert Dr. Hanson to your request. Respectfully, Ingrid Chamorro RN /roberto/ Ingrid Chamorro MSN RN CNL Primary Care RN Signed: 11/12/2023 09:09 Receipt Acknowledged By: 11/12/2023 09:14 /roberto/ Loretta Hanson DNP, DEBT COLLECTOR-BC, CNL Primary Care Nurse Practitioner INGRID CHAMORRO [facility]
--- OUTSIDE RECORDS SUMMARY | 2024-07-17 16:39 | XMS_ITS ---
Author Name [facility] [place] [facility] [place] Organization [facility] [place] Address [address] [place] [address] Care Team Providers Care Arm Rest Builder Name Role Phone LORETTA HANSON Primary Care [...] [place] H Aug 05, 2021 01 [phone] [id number] ELVIN WALSH PATIENT Selected Encounter This section includes the information on record at [place] for the Encounter. Date/Time Encounter Type Encounter Description Reason Provider Source Nov 26, 2023 10:35 AM OFFICE O/P EST LOW 20 MIN OPTOMETRY ICD-10-CM L71.8 SHANTAL Erazo Encounter Template Text not used by [place] Assessments - Encounter Diagnoses This section includes the primary and secondary diagnoses documented for the Encounter. Date/Time Primary/Secondary Diagnosis Diagnosis Name Provider Source Nov 27, 2023 10:05 AM PRIMARY Other SHANTAL Par[facility] [place] [facility] Nov 27, 2023 10:05 AM SECONDARY Meibomian gland dysfnct left eye, upper and lower eyelids BRANDOSHANTAL Zahra [facility] [place] [facility] Nov 27, 2023 10:05 AM SECONDARY Meibomian gland dysfnct right eye, upper and lower eyelids BRANDOSHANTAL Zahra [facility] [place] [facility] Nov 27, 2023 10:05 AM SECONDARY Squamous blepharitis left eye, upper and lower eyelids BRANDOSHANTAL E [place] [facility] [place] [facility] Plan of Treatment: Future Appointments (+ 6 months) and Future Tests (+/- 45 days) The Plan of Treatment section includes future care activities for the patient [facility] [place] [facility]. This section includes future appointments and future orders which are active, pending or scheduled. Future Appointments This section includes appointments that were scheduled to occur 6 months from the date of the Encounter, up to a maximum of 20 appointments. The data comes from all [place] treatment facilities. Appointment Date/Time Appointment Type Appointme nt Facility Name Dec 03, 2023 01:30 PM AMBULATORY - [facility]AB MEDICIN [facility] [place] [facility] December 05, 2023 08:00 AM AMBULATORY [facility] MEDICINE [facility] [place] [facility] December 10, 2023 03:00 PM AMBULATORY - REHAB MEDICIN E [facility] [place] [facility] December 17, 2023 03:00 PM AMBULATORY - REHAB MEDICIN E [facility] [place] [facility] December 24, 2023 03:00 PM AMBULATORY - REHAB MEDICIN E [facility] [place] [facility] January 01, 2024 11:00 AM AMBULATORY - MEDICINE [facility] [place] [facility] Jan 07, 2024 09:30 AM AMBULATORY - REHAB MEDICIN [facility] [place] [facility] Jan 08, 2024 09:00 AM AMBULATORY - PSYCHIATRY [facility] [place] [facility] Jan 21, 2024 10:30 AM AMBULATORY - MEDICINE [facility] [place] [facility] Jan 21, 2024 11:30 AM AMBULATORY - MEDICINE [facility] [place] [facility] Apr 24, 2024 02:00 PM AMBULATORY - MEDICINE [place] [facility] [place] [facility] Apr 29, 2024 01:00 PM AMBULATORY - MEDICINE [place] [facility] [place] [facility] Apr 29, 2024 02:00 PM AMBULATORY - MEDICINE [place] [facility] [place] [facility] May 13, 2024 09:30 AM [facility] May 21, 2024 11:00 AM [facility] May 22, 2024 01:30 PM [facility] Lab Results: +/- 30 days of the encounter This section includes the Chemistry and Hematology Lab Results on record with [place] for the patient. Radiology Reports and Pathology Reports are provided separately, in subsequent sections. Lab Results This section contains the Chemistry/Hematology Results that were resulted 30 days before or 30 daysafter the date of the Encounter. Date/Time Source Result Type Result - Unit Interpretation Reference Range Comment Nov 11, 2023 09:54 AM [facility] [id number] PGx Specimen Type: BLOOD Comment: SPECIMEN SHIPPED ON MANIFEST [id number] Ordering Provider: MAGGIE GALVAN Report Released Date/Time: Sep 13, 2023 12:46 PM Reporting Lab: [facility] [address] [id number] Performing Lab: [facility] Vital Signs: All taken on the encounter date This section contains inpatient and outpatient Vital Signs collected on the date of the Encounter. Date/Time Temperature Pulse Blood Pressure Respiratory Rate SP02 Pain Height Weight Body Mass Index Source Nov 26, 2023 10:01 AM 98.8 94 126/80 16 0 [facility] Social History: Smoking Status (Most current) and Tobacco Use (All prior to encounter date) This section includes the most current, and the historical, smoking and tobacco- related health factors from the [place] facility where the Encounter took place. Current Smoking Status This section includes the most current smoking, or tobacco-related health factor, from the [place] facility where the Encounter took place. Date/Time Current Smoking Status Comment Facil ity Aug 26, 2023 10:00 AM [place]-TOBACCO FORMER USER [facility] Tobacco Use History This section includes a history of the smoking, or tobacco-related health factors, that were collected on or before the date of the Encounter. The data comes from the [place] facility where the Encounter took place. Date/Time Smoking Status/Tobacco Use Comment Nemo landry Aug 26, 2023 10:00 AM [place]-TOBACCO QUIT 15 YRS OR MORE [facility] Apr 11, 2022 11:00 AM [place]-TOBACCO [facility] Apr 11, 2022 11:00 AM [place]-TOBACCO QUIT 15 YRS OR MORE [facility] Advance Directives: All historical and current Section Date Range: From patient's date of to the date document was created. This section includes ALL of a patient's completed or amended [place] Advance and Rescinded Directives. The entries below indicate that a directive exists for the patient, but an actual copy is not included with this document. The data comes from all [place] facilities. Date Advance Directives Provider Source May 16, 2011 ADVANCE DIRECTIVE DISCUSSION TON SARAVIA Sep 27, 2005 ADVANCE DIRECTIVE SHARLENE SIDHU [facility] Sep 10, 2005 ADVANCE DIRECTIVE DISCUSSION FRANCE RODRIGEZ [facility] Aug 14, 2004 ADVANCE DIRECTIVE DISCUSSION REGULO AGUILAR [place] Encounter Notes: All associated encounter notes This section contains the clinical notes associated to the Encounter. Date/Time Encounter Note(s) Provider Source Nov 26, 2023 10:39 AM OPTOMETRY NOTE: LOCAL TITLE: OPTOMETRY NOTE STANDARD TITLE: OPTOMETRY NOTE DATE OF NOTE: NOV 26, 2023@10:39 ENTRY DATE: NOV 26, 2023@10:39:16 AUTHOR: SUNDAY LUEVANO COSIGNER: URGENCY: STATUS: COMPLETED OPTOMETRY NOTE Has ADDENDA Active problems - Computerized Problem List is the source for the followin. Gallbladder polyp 2. Pain in right arm 3. 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 Sleep apnea 6. Overweight 7. GERD - Gastro-Esophageal Reflux Disease ([facility] [id number]) 8. Anxiety ([facility] [id number]) 9. Hyperlipidemia ([facility] [id number]) 10. Fatty liver 11. Family history of diabetes mellitus Active Outpatient Medications (including Supplies): Active Outpatient Medications Status 1) AZELASTINE 137MCG/SPRAY 200D NASAL INHL SPRAY 1 SPRAY ACTIVE INTO EACH NOSTRIL ONCE DAILY FOR SEASONAL RUNNY NOSE 2) CHOLECALCIF 50MCG (D3-2,000UNIT) TAB TAKE ONE TABLET ACTIVE BY MOUTH ONCE DAILY FOR VITAMIN SUPPLEMENTATION 3) OMEPRAZOLE 20MG EC CAP TAKE ONE CAPSULE BY MOUTH ONCE ACTIVE DAILY 4) TABLET CUTTER (PILL SPLITTER) USE CUTTER DIRECTED ACTIVE DIRECTED BY PROVIDER TO SPLIT TABLETS Active Non-VA Medications Status 1) Non-VA PROBIOTIC (CULTURELLE DIGESTIVE DAILY) CAP/TAB ACTIVE BY MOUTH 5 Total Medications Allergies: Patient has answered NKA All medications including those prescribed by outside VA's, community providers, and all OTC meds were reviewed and reconciled with patient to the best of their abilities. This 48 year old MALE is seen today for problem focused exam Medical, eye, personal, and social history are all reviewed and is contributory or is not contributory to today's visit. 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 with chronic meibomian gland dysfunction all 4 lids Conj: Mild chronic injection each eye Cornea: Clear centrally without staining or pigment each eye AC: 3+ quiet each eye Iris: Normal each eye Lens: Clear each eye Vit: Clear each eye Fundus exam: Dilated: Non dilated:xxx C/D: 0.50 each eye with distinct disc margins and good color Macula: Limited view each eye A/V: 1/2 each eye Vessels: Normal each eye Periphery: Not assessed each eye Impression: Rosacea facies with chronic meibomian gland dysfunction all 4 lids and mild dermatitis left upper lid> left lower lid related to 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 Plan: Start TobraDex ointment at bedtime left eye x 5 days then stop. Keep scheduled follow-up for comprehensive exam Education: Reviewed dosing frequency and application of TobraDex ointment to left eyelid at bedtime for 5 days and stop. Return to Clinic: Keep scheduled follow-up as previously noted. Ophthalmic medication reconciliation: The patient is prescribed TobraDex ointment to be applied to the left eyelid for 5 days and stop. Medication Reconciliation: Outpatient: Has the patient been taking medications as documented in the EMLR? YES: The patient has been taking medications as documented in the EMLR. Essential Medication List for Review used to complete this medication reconciliation. INCLUDED IN THIS LIST: Alphabetical list of active outpatient prescriptions dispensed from this VA (local) and dispensed from another [place] or [facility] facility (remote) as well as inpatient orders (local, pending and active), local clinic medications, locally documented non-VA medications, and local prescriptions that have or been discontinued in the past 90 days. - All changes in medications, including all non-VA/Herbal/OTC medications were entered into CPRS. Changes: TobraDex ointment to the left eyelid at bedtime for 5 days and stop - If there were any medications the patient should no longer take, they were discontinued. - The patient/caregiver was instructed to update this list, discard old lists, and take this list to the next appointment, whether with a VA or non-VA provider. Total time spent reviewing records, examining patient and entering orders 21 minutes. /roberto/ Sunday Luevano OD CHIEF OF OPTOMETRY Signed: 11/27/2023 10:06 11/27/2023 ADDENDUM STATUS: COMPLETED Exam note inadvertently signed before adding the information as noted below: Visual acuity with correction 20/20 right eye 20/20 left eye Pupils EOMs and confrontation stewart all performed: Pupils are round reactive to light without afferent pupillary defect with full extraocular motility and full confrontation stewart to finger counting each eye /es/ Sunday Luevano OD CHIEF OF OPTOMETRY Signed: 11/27/2023 10:08 SUNDAY LUEVANO [facility]
--- OUTSIDE RECORDS SUMMARY | 2024-07-17 16:39 | XMS_ITS | Encounter Summary ---
Author Name [facility] [place] Address [address] [facility], [place] [address] Care Team Providers Care Ad Compositor Name Role Phone LORETTA HANSON Primary Care [...] [place] H Aug 05, 2021 01 [id number] YOUNG WALSH PATIENT Selected Encounter This section includes the information on record at [place] for the Encounter. Date/Time Encounter Type Encounter Description Reason Provider Source Nov 08, 2023 02:26 PM Outpatient Encounter PRIMARY CARE/MEDICINE ISRA CHAMORRO Zahra Encounter Template Text not used by [place] Plan of Treatment: Future Appointments (+ 6 [...] 20 appointments. The data comes from all [place] treatment facilities. Appointment Date/Time Appointment Type Appointme nt Facility Name Nov 26, 2023 09:30 AM AMBULATORY - MEDICINE [facility] [place] [facility] Nov 26, 2023 10:30 AM AMBULATORY - MEDICINE [facility] [place] [facility] Nov 26, 2023 10:35 AM AMBULATORY - MEDICINE [facility] [place] [facility] Dec 03, 2023 01:30 PM AMBULATORY - REHAB MEDICIN E [facility] [place] [facility] December 05, 2023 08:00 AM AMBULATORY - MEDICINE [facility] [place] [facility] December 10, 2023 03:00 PM AMBULATORY - REHAB MEDICIN E [facility] [place] [facility] December 17, 2023 03:00 PM AMBULATORY - REHAB MEDICIN E [facility] [place] [facility] December 24, 2023 03:00 PM AMBULATORY - REHAB MEDICIN E [facility] [place] [facility] January 01, 2024 11:00 AM AMBULATORY - MEDICINE [facility] [place] [facility] Jan 07, 2024 09:30 AM AMBULATORY - REHAB MEDICIN E [facility] [place] [facility] Jan 08, 2024 09:00 AM AMBULATORY - PSYCHIATRY [facility] [place] [facility] Jan 21, 2024 10:30 AM AMBULATORY - MEDICINE [facility] [place] [facility] Jan 21, 2024 11:30 AM AMBULATORY - MEDICINE [facility] [place] [facility] Apr 24, 2024 02:00 PM AMBULATORY - MEDICINE [facility] [place] [facility] Apr 29, 2024 01:00 PM AMBULATORY - MEDICINE [facility] [place] [facility] Apr 29, 2024 02:00 PM AMBULATORY - MEDICINE [facility] [place] [facility] Lab Results: +/- 30 days of the encounter This section includes the Chemistry and Hematology Lab Results on record with [place] for the patient. Radiology Reports and Pathology Reports are provided separately, in subsequent sections. Lab Results This section contains the Chemistry/Hematology Results that were resulted 30 days before or 30 daysafter the date of the Encounter. Date/Time Source Result Type Result - Unit Interpretation Reference Range Comment Nov 11, 2023 09:54 AM [facility] [id number] PGx Specimen Type: BLOOD Comment: SPECIMEN SHIPPED ON MANIFEST [id number] Ordering Provider: MAGGIE GALVAN Report Released Date/Time: Sep 13, 2023 12:46 PM Reporting Lab: [facility] [address] [facility] [id number] Performing Lab: [facility] Social History: Smoking Status (Most current) and Tobacco Use (All prior to encounter date) This section includes the most current, and the historical, smoking and tobacco- related health factors from the [place] facility where the Encounter took place. Current Smoking Status This section includes the most current smoking, or tobacco-related health factor, from the [place] facility where the Encounter took place. Date/Time Current Smoking Status Comment Terri ity Aug 26, 2023 10:00 AM [place]-TOBACCO FORMER USER [facility] Tobacco Use History This section includes a history of the smoking, or tobacco-related health factors, that were collected on or before the date of the Encounter. The data comes from the [place] facility where the Encounter took place. Date/Time Smoking Status/Tobacco Use Comment F acility Aug 26, 2023 10:00 AM [place]-TOBACCO QUIT 15 YRS OR MORE [facility] Apr 11, 2022 11:00 AM [place]-TOBACCO FORMER USER [facility] Apr 11, 2022 11:00 AM [place]-TOBACCO QUIT 15 YRS OR MORE [facility] Advance Directives: All historical and current Section Date Range: From patient's date of to the date document was created. This section includes ALL of a patient's completed or amended [place] Advance and Rescinded Directives. The entries below indicate that a directive exists for the patient, but an actual copy is not included with this document. The data comes from all [place] facilities. Date Advance Directives Provider Source May 16, 2011 ADVANCE DIRECTIVE DISCUSSION TON SARAVIA [place] Sep 27, 2005 ADVANCE DIRECTIVE SHARLENE SIDHU [facility] Sep 10, 2005 ADVANCE DIRECTIVE DISCUSSION SIDDIQUIFRANCE DORADO JAMES Lemus [facility] Aug 14, 2004 ADVANCE DIRECTIVE DISCUSSION REG[place]O AGUILAR [place] Encounter Notes: All associated encounter notes This section contains the clinical notes associated to the Encounter. Date/Time Encounter Note(s) Provider Source Nov 08, 2023 02:26 PM PRIMARY CARE SECUR E MESSAGING: LOCAL TITLE: PRIMARY CARE SECURE MESSAGING STANDARD TITLE: PRIMARY CARE SECURE MESSAGING DATE OF NOTE: NOV 08, 2023@14:26 ENTRY DATE: NOV 08, 2023@15:26:05 AUTHOR: INGRID CHAMORRO EXP COSIGNER: URGENCY: STATUS: COMPLETED ------Original Message ------- Sent: 11/08/2023 02:33 PM ET From: YOUNG REYNA To: Krysten HANSON_PRIMARY CARE_[facility] Subject: Medication:Omeprazole Rx Hello Would you please renew and refill my Omeprazole prescription. Thank you. -Young ------Original Message ------- Sent: 11/08/2023 03:25 PM ET From: INGRID CHAMORRO To: YOUNG REYNA Subject: Medication:Omeprazole Rx Good Afternoon Mr. Reyna, I will alert Dr. Hanson to your request for renewal. Respectfully, Ingrid Chamorro RN /es/ Ingrid Chamorro MSN RN CNL Primary Care RN Signed: 11/08/2023 15:26 Receipt Acknowledged By: 11/08/2023 15:51 /es/ Loretta Hanson DNP, ROTARY DRILLER PROSPECTING-BC, CNL Primary Care Nurse Practitioner INGRID CHAMORRO [facility]
--- OUTSIDE RECORDS SUMMARY | 2024-07-17 16:39 | XMS_ITS | Encounter Summary ---
Author Name [facility] [place] Address [address] [place] [address] Care Team Providers Care Duct Maker Name Role Phone LORETTA HANSON Primary Care [...] [place] Aug 05, 2021 01 [id number] ELVIN WALSH PATIENT Selected Encounter This section includes the information on record at [place] for the Encounter. Date/Time Encounter Type Encounter Description Reason Provider Source Oct 07, 2023 11:30 AM MTMS BY PHARM ADDL 15 [facility] - IND ICD-10-CM F41.9 Anxiety disorder, unspecified MAGGIE FRANCES ER SHWETA Torres IHZahra Encounter Template Text not used by [place] Assessments - Encounter Diagnoses This section includes the primary and secondary diagnoses documented for the Encounter. Date/Time Primary/Secondary Diagnosis Diagnosis Name Provider Source Oct 07, 2023 11:47 AM PRIMARY Anxiety disorder, unspecified COLEJAHEIDI ER SHWETA D [place] [facility] [place] [facility] Plan of Treatment: Future Appointments (+ 6 months) and Future Tests (+/- 45 days) The Plan of Treatment section includes future care activities for the patient from [facility] [place] [facility] This section includes future appointments and future orders which are active, pending or scheduled. Future Appointments This section includes appointments that were scheduled to occur 6 months from the date of the Encounter, up to a maximum of 20 appointments. The data comes from all [place] treatment facilities. Appointment Date/Time Appointment Type Appointme nt Facility Name Nov 01, 2023 11:00 AM [facility]ULATORY [facility]ICINE [facility] [place] [facility] Nov 26, 2023 09:30 AM AMBULATORY [facility] MEDICINE [facility] [place] [facility] Nov 26, 2023 10:30 AM AM[facility]ULATORY [facility] MEDICINE [facility] [place] [facility] Nov 26, 2023 10:35 AM AM[facility]ULATORY [facility] MEDICINE [facility] [place] [facility] Dec 03, 2023 01:30 PM AMBULATORY - REHAB MEDICIN E [facility] [place] [facility] December 05, 2023 08:00 AM AMBULATORY - MEDICINE [facility] [place] [facility] December 10, 2023 03:00 PM AMBULATORY - REHAB MEDICIN E [facility] [place] [facility] December 17, 2023 03:00 PM AMBULATORY - REHAB MEDICIN E [facility] [place] [facility] December 24, 2023 03:00 PM AMBULATORY - REHAB MEDICIN E [facility] [place] [facility] January 01, 2024 11:00 AM AMBULATORY - MEDICINE [facility] [place] [facility] Jan 07, 2024 09:30 AM AMBULATORY - REHAB MEDICIN E [facility] [place] [facility] Jan 08, 2024 09:00 AM AMBULATORY - PSYCHIATRY [facility] [place] [facility] Jan 21, 2024 10:30 AM AMBULATORY - MEDICINE [facility] [place] [facility] Jan 21, 2024 11:30 AM AM[place]ULATORY [place]ICINE [place] [facility] [place] [facility] Social History: Smoking Status (Most current) and [...] Terri christensen Aug 26, 2023 10:00 AM [place]-TOBAC[place] FORMER USER [facility] Tobacco Use History This section includes a history of the smoking, or tobacco-related health factors, that were collected on or before the date of the Encounter. The data comes from the [place] facility where the Encounter took place. Date/Time Smoking Status/Tobacco Use Comment F acaleksey Aug 26, 2023 10:00 AM [place]-TOBAC[place] QUIT 15 YRS OR MORE [facility] Apr 11, 2022 11:00 AM [place]-TOBACCO FORMER USER [facility] Apr 11, 2022 11:00 AM [place] QUIT 15 YRS OR MORE [facility] Advance Directives: All historical and current [...] [place] Sep 27, 2005 ADVANCE DIRECTIVE SHARLENE SIDHU [facility] Sep 10, 2005 ADVANCE DIRECTIVE DISCUSSION FRANCE RODRIGEZ [facility] Aug 14, 2004 ADVANCE DIRECTIVE DISCUSSION REGULO AGUILAR [place] Encounter Notes: All associated encounter notes This section contains the clinical notes associated to the Encounter. Date/Time Encounter Note(s) Provider Source Oct 07, 2023 11:32 AM PHARMACY MEDICATION MGT NOTE: LOCAL TITLE: CLINICAL PHARMACIST F/U NOTE STANDARD TITLE: PHARMACY MEDICATION MGT NOTE DATE OF NOTE: OCT 07, 2023@11:32 ENTRY DATE: OCT 07, 2023@11:32:40 AUTHOR: HOSSEIN FRANCES COSIGNER: URGENCY: STATUS: COMPLETED [facility] (VVC) Standard Documentation VVC Clinician Resources Only: E911 (Emergency Call Relay Center): [phone] National Veterans Crisis Line - 988 then press #1. JASPREET Suicide Coordinator [phone], Ext. [phone]; Back-up Ext. [phone] [place] Police, Danette VOGEL [phone] Introduction: Visit is being conducted by [place] [facility]. identified with 2 identifiers: [X] Full Name [X] Date of [ ] VA ID Card Emergency Plan: [place] confirmed and/or provided the following information in case of emergency or technology failure. PATIENT PHONE - PHONE NUMBER [CELLULAR] - Is patient phone number correct, if not, enter below: 's phone number: ELVIN Pennington MARIBELL [address], [address] [place]'s present location and address for appointment: at home 's emergency contact name and phone number: domestic partner, Anny Pickard [phone] [place] reported that location is private and safe: Yes Informed Consent: informed of the risks and benefits of Telehealth video care. has the right to refuse video services. If refuses video visit, a [id number] visit will be scheduled. [place] verbalized consent for this video visit: Yes [place] provided consent for any other persons present for visit: No If yes, who and relationship to patient: Secure visit: Visit was locked for security and privacy:Yes -=-=-=-=-=-=-=-=-=-=-=-=-=-=- =-=-=-=-=-==-=-=-=-=-=-=-=-=- =-=-=-=-=-=-=-=-=-=-=- -=-=-=-=-=-=-=-=-=-=-=-=-=-=- =-=-=-=-=-==-=-=-=-=-=-=-=-=- =-=-=-=-=-=-=-=-=-=-=- Program: Clinical Pharmacy Provider/Medication Management Speciality: Mental Health ATTENDED BY: [X] Patient [ ] Spouse/Caregiver LENGTH OF SESSION: 30minutes -=-=-=-=-=-=-=-=-=-=-=-=-=-=- =-=-=-=-=-==-=-=-=-=-=-=-=-=- =-=-=-=-=-=-=-=-=-=-=- Name: ELVIN REYNA JR : Jul ID: 48yo WHITE MALE -=-=-=-=-=-=-=-=-=-=-=-=-=-=- =-=-=-=-=-==-=-=-=-=-=-=-=-=- =-=-=-=-=-=Subjective- [place] was last seen on [id number] with the following pharmacotherapeutic plan: [ ] No changes [X] Discontinue: escitalopram [X] Initiate: buspirone 2.5mg bid [ ] Change the following: Treating Dx(s): Anxiety INTERIM HISTORY pt reports to be doing okay today. briefly discussed recent trial of buspirone. reports minimal utilization, to which he then begin experiencing side effects, including chest pains, insomnia, and sensations to his face. specified a strange sensation to his tongue which I have never felt before ; reported uncertainty whether or not he saw swelling; and denied any skin rashes. reports relief of symptoms once the medication was discontinued. discussed adding it as an allergy in his chart, which he agreed. endorsed that he would not like to try any more medications at this time. plan to wait for PHASER results, which he has not been contacted yet regarding the consult. -=-=-=-=-=-=-=-=-=-=-=-=-=-=- =-=-=-=-=-==-=-=-=-=-=-=-=-=- =-=-=-=-=-=-Objective- Mental Status Exam Appearance: [...] Overweight 7. GERD - Gastro-Esophageal Reflux Disease ([facility] [id number]) 8. Anxiety ([facility] [id number]) 9. Hyperlipidemia ([facility] [id number]) 10. Fatty liver 11. Family history of diabetes mellitus ALLERGIES: Patient has answered NKA Active Outpatient Medications (including Supplies): Active Outpatient Medications Status 1) AZELASTINE 137MCG/SPRAY 200D NASAL INHL SPRAY 1 SPRAY ACTIVE INTO EACH NOSTRIL ONCE DAILY FOR SEASONAL RUNNY NOSE 2) CHOLECALCIF 50MCG (D3-2,000UNIT) TAB TAKE ONE TABLET ACTIVE BY MOUTH ONCE DAILY FOR VITAMIN SUPPLEMENTATION 3) TABLET CUTTER (PILL SPLITTER) USE CUTTER DIRECTED ACTIVE DIRECTED BY PROVIDER TO SPLIT TABLETS Active Non-VA Medications Status 1) Non-VA PROBIOTIC (CULTURELLE DIGESTIVE DAILY) CAP/TAB ACTIVE BY MOUTH 4 Total Medications Past psychiatric medications include the following: [X] Per CPRS: - atomoxetine (2022) - bupropion (; ) - buspirone (2023) - escitalopram (2023) - hydroxyzine (2004) - paroxetine () - risperidone () - sertraline () - trazodone () [X] Per Patient: - SI w/ bupropion [...] following review of all active psychotropic and AGENT TELEGRAPHER-active agents is to ensure pharmacotherapy is evaluated for safety and efficacy as they relate to behaviorial and physiological changes and outcomes Anxiety - buspirone 2.5mg bid > unable to tolerate medication after three doses; reports chest pains, insomnia, and sensations to mouth and face > denied any skin rashes or irritation, but noted sensations to the tongue which he otherwise was uncertain about swelling swelling > did not require any additional interventions aside from stopping the medication. will chart this as an allergy as a safety measure, but likelihood of it being a true allergy remains uncertain * will await guidance from pending PHASER consult prior to starting any new medications at this time PLAN 1. Pharmacotherapy [ ] No changes [X] Discontinue: buspirone [ ] Initiate: [ ] Change the followin. Labs/tests: n/a [...] Factor Reduction [ ] Other: RTC Interval: n/a Next Apt: n/a [place] was provided conventional underwriter's contact information and instructed to contact conventional underwriter as needed for any changes to scheduling or concerns otherwise. [place] is aware of actions to take if they feel unsafe, including calling the 's Crisis Line (#479); calling 911; or going to the nearest urgent care or emergency room. The is also aware of how to contact the clinic should the require additional services prior to the next appointment. Time spent on chart review, session, and documentation: 25minutes /es/ Hossein Frances PharmD Clinical Pharmacist Practitioner Signed: 10/07/2023 12:01 HOSSEIN FRANCES [place] [facility]
--- OUTSIDE RECORDS SUMMARY | 2024-07-17 16:39 | XMS_ITS | Encounter Summary ---
Author Name [facility] [place] Organization [place] Address [address] [place] [address] Care Team Providers Care Explosive Ordnance Disposal Technician Name Role Phone LORETTA HANSON Primary Care Provider DREAD [place] Primary Care Provider Unavailabl aditi Insurance Providers: All historical and current Section [...] [place] H Aug 05, 2021 01 [id number] ELVIN WALSH PATIENT Selected Encounter This section includes the information on record at [place] for the Encounter. Date/Time Encounter Type Encounter Description Reason Provider Source Nov 26, 2023 10:30 AM OFFICE O/P EST SF 10 MIN PRIMARY CARE/MEDICINE ICD-10-CM H01.004 Unspecified blepharitis left upper eyelid GANGA DAVID Aditi Encounter Template Text not used by [place] Assessments - Encounter Diagnoses This section includes the primary and secondary diagnoses documented for the Encounter. Date/Time Primary/Secondary Diagnosis Diagnosis Name Provider Source Nov 26, 2023 10:37 AM PRIMARY Unspecified blepharitis left upper eyelid GANGA DAVID [place] [facility] [place] [facility] Plan of Treatment: Future Appointments (+ 6 months) and Future Tests (+/- 45 days) The Plan of Treatment section includes future care activities for the patient from all [place] [facility]. This section includes future appointments and future orders which are active, pending or scheduled. Future Appointments This section includes appointments that were scheduled to occur 6 months from the date of the Encounter, up to a maximum of 20 appointments. The data comes from all [place] treatment facilities. Appointment Date/Time Appointment Type Appointme [...] [facility] [place] [facility] Apr 24, 2024 02:00 PM AMBULATORY - MEDICINE [facility] [place] [facility] Apr 29, 2024 01:00 PM AMBULATORY - MEDICINE [facility] [place] [facility] Apr 29, 2024 02:00 PM AMBULATORY - MEDICINE [facility] [place] [facility] May 13, 2024 09:30 AM AMBULATORY - MEDICINE [facility] [place] [facility] May 21, 2024 11:00 AM AMBULATORY - MEDICINE [facility] [place] [facility] May 22, 2024 01:30 PM AMBULATORY - MEDICINE [facility] Lab Results: +/- 30 days of the encounter This section includes the Chemistry and Hematology Lab Results on record with [place] for the patient. Radiology Reports and Pathology Reports are provided separately, in subsequent sections. Lab Results This section contains the Chemistry/Hematology Results that were resulted 30 days before or 30 daysafter the date of the Encounter. Date/Time Source Result Type Result - Unit Interpretation Reference Range Comment Nov 11, 2023 09:54 AM [facility] [id number] PGx Specimen Type: BLOOD Comment: SPECIMEN SHIPPED ON MANIFEST [id number] Ordering Provider: MAGGIE GALVAN Report Released Date/Time: Sep 13, 2023 12:46 PM Reporting Lab: [address] [id number] Performing Lab: [facility] Vital Signs: All taken on the encounter date This section contains inpatient and outpatient Vital Signs collected on the date of the Encounter. Date/Time Temperature Pulse Blood Pressure Respiratory Rate SP02 Pain Height Weight Body Mass Index Source Nov 26, 2023 10:01 AM 98.8 94 126/80 16 0 [facility] Social History: Smoking Status (Most current) and Tobacco Use (All prior to encounter date) This section includes the most current, and the historical, smoking and tobacco- related health factors from the [place] facility where the Encounter took place. Current Smoking Status This section includes the most current smoking, or tobacco-related health factor, from the [place] facility where the Encounter took place. Date/Time Current Smoking Status Comment Facil ity Aug 26, 2023 10:00 AM [place]-TOBACCO FORMER USER [facility] Tobacco Use History This section includes a history of the smoking, or tobacco-related health factors, that were collected on or before the date of the Encounter. The data comes from the [place] facility where the Encounter took place. Date/Time Smoking Status/Tobacco Use Comment F acility Aug 26, 2023 10:00 AM [place]-TOBACCO QUIT 15 YRS OR MORE [facility] Apr 11, 2022 11:00 AM [place]-TOBACCO FORMER USER [facility] Apr 11, 2022 11:00 AM [place]-TOBACCO QUIT 15 YRS OR MORE [facility] Advance Directives: All historical and current Section Date Range: From patient's date of to the date document was created. This section includes ALL of a patient's completed or amended [place] Advance and Rescinded Directives. The entries below indicate that a directive exists for the patient, but an actual copy is not included with this document. The data comes from all [place] facilities. Date Advance Directives Provider Source May 16, 2011 ADVANCE DIRECTIVE DISCUSSION TON SARAVIA Sep 27, 2005 ADVANCE DIRECTIVE SHARLENE SIDHU [facility] Sep 10, 2005 ADVANCE DIRECTIVE DISCUSSION FRANCE RODRIGEZ [facility] Aug 14, 2004 ADVANCE DIRECTIVE DISCUSSION REGULO AGUILAR [place] Encounter Notes: All associated encounter notes This section contains the clinical notes associated to the Encounter. Date/Time Encounter Note(s) Provider Source Nov 26, 2023 10:34 AM PHYSICIAN PUBLIC POLICY MANAGER NOTE: LOCAL TITLE: PA NOTE STANDARD TITLE: PHYSICIAN PUBLIC POLICY MANAGER NOTE DATE OF NOTE: NOV 26, 2023@10:34 ENTRY DATE: NOV 26, 2023@10:34:29 AUTHOR: GANGA DAVID EXP COSIGNER: URGENCY: STATUS: COMPLETED SICK CALL VISIT CC: Left eye lid redness HPI: 48-year-old male presents with 1 day history of left upper lid and outer corner of left eye burning and flaking pruritic rash with slight swelling. He has no visual issues. He has no pain. He is concerned about transferring tinea cruris from rubbing his eye. No history of eczema or psoriasis. REVIEW OF SYSTEMS: A 12 point review of systems is negative except as noted in the HPI. Active Medical Problems: Active Problem Gallbladder polyp K82.4 03/26/2023 LORETTA HANSON Pain in right arm M79.601 02/21/2023 LORETTA HANSON Poon's esophagus K22.70 09/18/2022 LORETTA HANSON Attention deficit hyperactivity dis 06/25/2022 LACEYELISHA Sleep apnea G47.33 04/12/2022 LORETTA HANSON Overweight E66.3 04/12/2022 LORETTA HANSON GERD - Gastro-Esophageal Reflux Dis 04/11/2022 LORETTA HANSON Anxiety ([facility] [id number]) F41.9 04/11/2022 LORETTA HANSON Hyperlipidemia ([facility] [id number]) E78.5 04/11/2022 LORETTA HANSON Fatty liver K76.0 04/11/2022 LORETTA HANSON Family history of diabetes mellitus 04/11/2022 LORETTA HANSON Meds: Active Outpatient Medications (including Supplies): AZELASTINE 137MCG/SPRAY 200D NASAL INHL SPRAY 1 SPRAY INTO ACTIVE EACH NOSTRIL ONCE DAILY FOR SEASONAL RUNNY NOSE CHOLECALCIF 50MCG (D3-2,000UNIT) TAB TAKE ONE TABLET BY ACTIVE MOUTH ONCE DAILY FOR VITAMIN SUPPLEMENTATION OMEPRAZOLE 20MG EC CAP TAKE ONE CAPSULE BY MOUTH ONCE ACTIVE DAILY TABLET CUTTER (PILL SPLITTER) USE CUTTER DIRECTED ACTIVE DIRECTED BY PROVIDER TO SPLIT TABLETS Non-VA PROBIOTIC (CULTURELLE DIGESTIVE DAILY) CAP/TAB BY ACTIVE MOUTH Allergies: Patient has answered NKA Date Vital Measurement Qualifiers 11/26/2023 10:01 Temp F (C) 98.8 (37.1) Pulse 94 Respir 16 BP 126/80 Pain 0 FOCUSED EXAMINATION Well-developed nontoxic male Left eye exam shows a slightly inflamed erythematous lid upper margin along with the first few millimeters a little further from midline to the lateral edge with the corner also involved and slightly into the lower lid margin. Extraocular movements are intact No scleral icterus or injection Discussed with Dr. Luevano who has kindly offered to see this [place] for evaluation prior to treatment. ASSESSMENT/PLAN Unspecified Blepharitis left upper Eyelid as above [place] able to verbalize understanding of plan of care and agrees. >> MEDICATIONS Reviewed and reconciled with [place] /roberto/ GANGA GIVENS MS,PA-C PHYSICIAN PUBLIC POLICY MANAGER Signed: 11/26/2023 10:38 [facility]
--- OUTSIDE RECORDS SUMMARY | 2024-07-17 16:40 | XMS_ITS | Encounter Summary ---
Author Name [facility] [place] Organization [facility] [place] Address [address], [place] [address] Care Team Providers Care Rn Cardiovascular Name Role Phone LORETTA HANSON Primary Care [...] [place] H Aug 05, 2021 01 [id number] ELVIN WALSH PATIENT Selected Encounter This section includes the information on record at [place] for the Encounter. Date/Time Encounter Type Encounter Description Reason Provider Source December 25, 2023 03:14 PM Outpatient Encounter PRIMARY CARE/MEDICINE ISRA MOYA Zahra Encounter Template Text not used by [place] Plan of Treatment: Future Appointments (+ 6 [...] Date/Time Appointment Type Appointme nt Facility Name January 01, 2024 11:00 AM AM[facility]ULATORY [facility] [place] [facility] Jan 07, 2024 09:30 AM AMBULATORY - [facility]AB MEDICIN [facility] [place] [facility] Jan 08, 2024 09:00 AM AMBULATORY - PSYCHIATRY [facility] [place] [facility] Jan 21, 2024 10:30 AM AMBULATORY - MEDICINE [facility] [place] [facility] Jan 21, 2024 11:30 AM AMBULATORY [facility] MEDICINE [facility] [place] [facility] Apr 24, 2024 02:00 PM AMBULATORY - MEDICINE [facility] [place] [facility] Apr 29, 2024 01:00 PM AMBULATORY - MEDICINE [facility] [place] [facility] Apr 29, 2024 02:00 PM AMBULATORY - MEDICINE [facility] [place] [facility] May 13, 2024 09:30 AM AMBULATORY - MEDICINE [facility] [place] [facility] May 21, 2024 11:00 AM AMBULATORY - MEDICINE [facility] [place] [facility] May 22, 2024 01:30 PM AMBULATORY - MEDICINE [facility] [place] [facility] May 29, 2024 02:00 PM AMBULATORY - MEDICINE [facility] [place] [facility] Jun 05, 2024 10:00 AM AMBULATORY - MEDICINE [facility] [place] [facility] Jun 05, 2024 02:00 PM AMBULATORY - MEDICINE [facility] [place] [facility] Jun 05, 2024 02:45 PM AMBULATORY - NONE [facility] [place] [facility] Jun 17, 2024 08:00 AM AMBULATORY - PSYCHIATRY [facility] [place] [facility] Jun 18, 2024 08:30 AM AMBULATORY - MEDICINE [facility] [place] [facility] Jun 18, 2024 11:00 AM AMBULATORY - PSYCHIATRY [facility] [place] [facility] Jun 26, 2024 09:00 AM AMBULATORY - MEDICINE [facility] [place] [facility] Active, Pending, and Scheduled Orders This section includes a listing of several types of active, pending, and scheduled orders, including clinic medications orders, diagnostic test orders, procedure orders and consult orders; where the start date of the order is 45 days before the date of the Encounter or 45 days after the date of theEncounter. The data comes from all [place] treatment facilities. Test Date/Time Test Type Test Details Facility Name Jan 21, 2024 12:00 AM Laboratory - Chemi stry Order OCCULT BLOOD FIT X1 SCREEN(IN-HOUSE) STOOL FECES SP [facility] Social History: Smoking Status (Most current) [...] Facil ity Aug 26, 2023 10:00 AM [place]-TOBACCO FORMER USER [facility] Tobacco Use History This section includes a history of the smoking, or tobacco-related health factors, that were collected on or before the date of the Encounter. The data comes from the [place] facility where the Encounter took place. Date/Time Smoking Status/Tobacco Use Comment F acility Aug 26, 2023 10:00 AM ND-TOBACCO QUIT 15 YRS OR MORE [facility] Apr 11, 2022 11:00 AM VA-TOBACCO FORMER USER [facility] Apr 11, 2022 11:00 AM [place]-TOBACCO QUIT 15 YRS OR MORE [facility] Advance Directives: All historical and current [...] 2005 ADVANCE DIRECTIVE SHARLENE SIDHU [facility] Sep 10, 2005 ADVANCE DIRECTIVE DISCUSSION FRANCE RODRIGEZ [facility] Aug 14, 2004 ADVANCE DIRECTIVE DISCUSSION REGULO AGUILAR P [place] Radiology Reports: +/- 30 days of the encounter Radiology Reports For cases when an order for radiology services may have been completed prior to the date of the Encounter, the report list includes the Radiology Reports that were completed up to 30 days before dateof the Encounter. For cases when an order for radiology services may have been completed after the date of the Encounter, the report list also includes the Radiology Reports that were completed up to30 days after date of the Encounter. The data comes from all [place] treatment facilities. Date/Time Radiology Report Provider Source Jan 21, 2024 11:02 AM MANDIBLE LESS THAN 4 VIEWS: ELVIN REYNA [id number] -[id number] M Exm Date: JAN 21, 2024@11:02 Req Phys: GANGA DAVID Loc: CWM/NO/SICK CALL PA (Req'g Loc Img Loc: [facility] Service: Unknown [place] [facility] [place] [facility] , (Case [id number] COMPLETE) MANDIBLE LESS THAN 4 VIEWS (RAD Detailed) CPT:46826 Reason for Study: SWELLING AND PAIN Clinical History: R/O MASS Report Status: Verified Date Reported: JAN 21, 2024 Date Verified: JAN 21, 2024 Granite Setter E-Sig: Report: PROCEDURE: Stat mandible 3 images DATE: January 21, 2024 COMPARISON: none HISTORY: SWELLING AND PAIN FINDINGS: No acute fracture, dislocation or bone destruction. Large body habitus with markedly prominent neck soft tissues could be due to body habitus, inflammatory or infectious etiologies. A mass cannot be excluded. Recommend CT/MRI. Bones are partially obscured by overlap and underpenetration on frontal view and limited latitude with overpenetration anteriorly on the lateral views. No definite acute fracture or bone destruction. There are unerupted maxillary molar teeth. Nonspecific mild asymmetric prominence of the left temporomandibular joint (7 mm) compared to the right (5 mm). Consider MRI if there is concern of internal derangement. Impression: No acute fracture. Markedly prominent neck soft tissues could be due to body habitus, inflammatory or infectious etiologies and are not well evaluated by radiographs. A mass cannot be excluded. Recommend CT/MRI. READING PHYSICIAN: Maged Pastor M.D. -[phone] 01/21/2024 12:15 EDT [facility] National Teleradiology Program [phone] (For Medical Practitioner Use Only) Attention Patients / Veterans: If you have questions or concerns about these test results, please contact your ordering provider or primary care team. Primary Diagnostic Code: SIGNIFICANT ABNORMALITY, ATTN NEEDED Primary Interpreting Staff: RADIOLOGY,OUTSIDE SERVICE, Staff Physician / RADIOLOGY,OUTSIDE SERVICE [facility] Encounter Notes: All associated encounter notes This section contains the clinical notes associated to the Encounter. Date/Time Encounter Note(s) Provider Source December 25, 2023 03:14 PM PRIMARY CARE [employer] E MESSAGING: LOCAL TITLE: PRIMARY CARE SECURE MESSAGING STANDARD TITLE: PRIMARY CARE SECURE MESSAGING DATE OF NOTE: DECEMBER 25, 2023@15:14 ENTRY DATE: DECEMBER 25, 2023@16:15 AUTHOR: INGRID MOYA EXP COSIGNER: URGENCY: STATUS: COMPLETED PRIMARY CARE SECURE MESSAGING Has ADDENDA ------Original Message ------- Sent: 12/25/2023 03:59 PM ET From: ELVIN REYNA To: Krysten HANSON_PRIMARY CARE_[facility] Subject: Appointment:Dermatology Consult Reese, I'd like the Eyelet Maker to examine and possibly remove a few moles and skin tags on my back and underarms. Do I need a consult sent to the clinic to make an appointment there? Thank you! Johnie ------Original Message ------- Sent: 12/25/2023 04:14 PM ET From: INGRID MOYA To: ELVIN REYNA Subject: Appointment:Dermatology Consult Good Afternoon Mr. Reyna, Yes you would need a consultation entered for dermatology, there are times when Dr. Hanson will need to see what is going on to issue the proper treatment or consultation. I will alert him to your message. Respectfully, Ingrid Moya RN /es/ Ingrid Moya MSN RN CNL Primary Care RN Signed: 12/25/2023 16:15 Receipt Acknowledged By: 12/31/2023 07:08 /roberto/ BENJAMÍN Paez DNP, MARILYN Primary Care Nurse Practitioner 12/31/2023 ADDENDUM STATUS: COMPLETED unless anything urgently concerning, can discuss at upcoming visit. Otherwise he will need F2F to address concern prior to placing consult. /roberto/ BENJAMÍN Paez DNP, MARILYN Primary Care Nurse Practitioner Signed: 12/31/2023 07:09 01/06/2024 ADDENDUM STATUS: COMPLETED Vet advised via /roberto/ Ingrid ESTRADA RN MARILYN Primary Care RN Signed: 01/06/2024 15:02 [facility]
--- OUTSIDE RECORDS SUMMARY | 2024-07-17 16:40 | XMS_ITS | Encounter Summary ---
Author Name [facility] [place] [facility] [place] Organization [facility] [place] Address [address], [place] [address] Care Team Providers Care Aeronautical Design Engineer Name Role Phone LORETTA HANSON Primary [...] Gonzalez's Name Patient's Relationship to Policy Gonzalez [facility] MEDICAID [facility] Aug 05, 2021 01 [id number] YOUNG WALSH PATIENT Selected Encounter This section includes the information on record at [place] for the Encounter. Date/Time Encounter Type Encounter Description Reason Provider Source December 25, 2023 03:14 PM Outpatient Encounter PODIATRY NINA MALDONADO [facility] Encounter Template Text not used by ID Plan of Treatment: Future Appointments (+ 6 [...] - MEDICINE [facility] [place] [facility] Jan 07, 2024 09:30 AM AMBULATORY - REHAB MEDICIN E [facility] [place] [facility] Jan 08, 2024 09:00 AM AMBULATORY - PSYCHIATRY [facility] [place] [facility] Jan 21, 2024 10:30 AM AMBULATORY - MEDICINE [facility] [place] [facility] Jan 21, 2024 11:30 AM AMBULATORY - MEDICINE [facility] [place] [facility] Apr 24, 2024 02:00 PM AMBULATORY - MEDICINE [facility] [place] [facility] Apr 29, 2024 01:00 PM AMBULATORY - MEDICINE [facility] [place] [facility] Apr 29, 2024 02:00 PM AMBULATORY - MEDICINE [facility] [place] [facility] May 13, 2024 09:30 AM AMBULATORY - MEDICINE [facility] [place] [facility] May 21, 2024 11:00 AM AMBULATORY - MEDICINE [facility] [place] [facility] May 22, 2024 01:30 PM AMBULATORY - MEDICINE [facility] [place] [facility] May 29, 2024 02:00 PM AMBULATORY - MEDICINE [facility] [place] [facility] Jun 05, 2024 10:00 AM AMBULATORY - MEDICINE [facility] [place] [facility] Jun 05, 2024 02:00 PM AMBULATORY - MEDICINE [facility] [place] [facility] Jun 05, 2024 02:45 PM AMBULATORY - NONE [facility] [place] [facility] Jun 17, 2024 08:00 AM AMBULATORY - PSYCHIATRY [facility] [place] [facility] Jun 18, 2024 08:30 AM AMBULATORY - MEDICINE [facility] [place] [facility] Jun 18, 2024 11:00 AM AMBULATORY - PSYCHIATRY [facility] [place] [facility] Jun 26, 2024 09:00 AM AMBULATORY - MEDICINE [facility] [place] [facility] Active, Pending, and Scheduled Orders This section includes a listing of several types of active, pending, and scheduled orders, including clinic medications orders, diagnostic test orders, procedure orders and consult orders; where the start date of the order is 45 days before the date of the Encounter or 45 days after the date of theEncounter. The data comes from all [place] treatment facilities. Test Date/Time Test Type Test Details Facility Name Jan 21, 2024 12:00 AM Laboratory - Chemi stry Order OCCULT BLOOD FIT X1 SCREEN(IN-HOUSE) STOOL FECES SP [facility] Social History: Smoking Status (Most current) and Tobacco Use (All prior to encounter date) This section includes the most current, and the historical, smoking and tobacco- related health factors from the [place] facility where the Encounter took place. Current Smoking Status This section includes the most current smoking, or tobacco-related health factor, from the [place] facility where the Encounter took place. Date/Time Current Smoking Status Comment Facil ity Aug 26, 2023 10:00 AM ID-TOBACCO FORMER USER [facility] Tobacco Use History This section includes a history of the smoking, or tobacco-related health factors, that were collected on or before the date of the Encounter. The data comes from the ID facility where the Encounter took place. Date/Time Smoking Status/Tobacco Use Comment F acility Aug 26, 2023 10:00 AM ID-TOBACCO QUIT 15 YRS OR MORE [facility] Apr 11, 2022 11:00 AM ID-TOBACCO FORMER USER [facility] Apr 11, 2022 11:00 AM ID-TOBACCO QUIT 15 YRS OR MORE [facility] Advance Directives: All historical and current Section Date Range: From patient's date of to the date document was created. This section includes ALL of a patient's completed or amended [place] Advance and Rescinded Directives. The entries below indicate that a directive exists for the patient, but an actual copy is not included with this document. The data comes from all [place] facilities. Date Advance Directives Provider Source May 16, 2011 ADVANCE DIRECTIVE DISCUSSION TON SARAVIA Sep 27, 2005 ADVANCE DIRECTIVE SHARLENE SIDHU [facility] Sep 10, 2005 ADVANCE DIRECTIVE DISCUSSION FRANCE RODRIGEZ [facility] Aug 14, 2004 ADVANCE DIRECTIVE DISCUSSION REGULO AGUILAR [place] Radiology Reports: +/- 30 days [...] the Encounter. The data comes from all [place] treatment facilities. Date/Time Radiology Report Provider Source Jan 21, 2024 11:02 AM MANDIBLE LESS THAN 4 VIEWS: YOUNG REYNA [id number] -1975 M Exm Date: JAN 21, 2024@11:02 Req Phys: GANGA DAVID Loc: CWM/NO/SICK CALL PA (Req'g Loc Img Loc: [facility]BUILD[facility] 1 Service: Unknown [place] [facility] [place] [facility] , (Case [id number] COMPLETE) MANDIBLE LESS THAN 4 VIEWS (RAD Detailed) CPT:00391 Reason for Study: SWELLING AND PAIN Clinical History: R/O MASS Report Status: Verified Date Reported: JAN 21, 2024 Date Verified: JAN 21, 2024 Retail Banking Manager E-Sig: Report: PROCEDURE: Stat mandible 3 images [...] Recommend CT/MRI. READING PHYSICIAN: Maged Pastor M.D. -[phone] 01/21/2024 12:15 EDT [facility] National Teleradiology Program [phone] (For Medical Practitioner Use Only) Attention Patients / Veterans: If you have questions or concerns about these test results, please contact your ordering provider or primary care team. Primary Diagnostic Code: SIGNIFICANT ABNORMALITY, ATTN NEEDED Primary Interpreting Staff: RADIOLOGY,OUTSIDE SERVICE, Staff Physician / RADIOLOGY,OUTSIDE SERVICE [place] [facility] [place] [facility] Encounter Notes: All associated encounter notes This section contains the clinical notes associated to the Encounter. Date/Time Encounter Note(s) Provider Source December 25, 2023 03:14 PM PODIATRY SECURE MESSAGING: LOCAL TITLE: PODIATRY SECURE MESSAGING STANDARD TITLE: PODIATRY SECURE MESSAGING DATE OF NOTE: DECEMBER 25, 2023@15:14 ENTRY DATE: DECEMBER 25, 2023@16:14:55 AUTHOR: NINA MALDONADO EXP COSIGNER: URGENCY: STATUS: COMPLETED ------Original Message -------- Sent: 12/25/2023 04:07 PM ET From: YOUNG REYNA To: PODIATRY_[facility]@ Subject: Appointment:Surgery & Orthotics Reese, I am hoping to schedule the nail surgery procedure which I discussed with the van owner operator during my last visit. I am also looking for an update on the Orthotics for which he cast my feet. Thank you. Young ------Original Message -------- Sent: 12/25/2023 04:14 PM ET From: NINA MALDONADO To: YOUNG REYNA Subject: Appointment:Surgery & Orthotics Helnelda, Your Orthotics arrived here yesterday-letter mailed out to you in this mornings mail run. Let us know when you'd like to come in and pick them up/have them fit to your shoes. I will bring your interest in having the nail procedure to Dr. Kong's attention. He is currently booking out at least a month if not longer. Nina [facility] Weight Loss Counselor /roberto/ NINA MALDONADO [facility] Weight Loss Counselor Signed: 12/25/2023 16:14 Receipt Acknowledged By: 12/25/2023 16:37 /es/ CYNTHIA KONG DPM PODIATRY ATTENDING NINA MALDONADO [facility]
--- OUTSIDE RECORDS SUMMARY | 2024-07-17 16:40 | XMS_ITS | Encounter Summary ---
Author Name [facility] [place] Address [address] [place] [address] Care Team Providers Care Supervising Chef Name Role Phone LORETTA HANSON Primary Care [...] Gonzalez's Name Patient's Relationship to Policy Gonzalez [facility] MEDICAID [facility] Aug 05, 2021 01 [id number] ELVIN WALSH PATIENT Selected Encounter This section includes the information on record at [place] for the Encounter. Date/Time Encounter Type Encounter Description Reason Provider Source January 01, 2024 11:00 AM OFF/OP EST DECEMBER X REQ PHY/QHP PRIMARY CARE/MEDICINE ICD-10-CM Z04.9 Encounter for examination and observation for unsp reason ROBBIN STREETER SA H IHE Encounter Template Text not used by [facility] Assessments - Encounter Diagnoses This section includes the primary and secondary diagnoses documented for the Encounter. Date/Time Primary/Secondary Diagnosis Diagnosis Name Provider Source January 01, 2024 11:46 AM PRIMARY Encounter for examination and observation for unsp reason ROBBIN STREETER [facility] [place] [facility] Plan of Treatment: Future Appointments (+ 6 months) and Future Tests (+/- 45 days) The Plan of Treatment section includes future care activities for the patient from all [place] treatmentfacilities. This section includes future appointments and future orders which are active, pending or scheduled. Future Appointments This section includes appointments that were scheduled to occur 6 months from the date of the Encounter, up to a maximum of 20 appointments. The data comes from all [place] treatment facilities. Appointment Date/Time Appointment Type Appointme nt Facility Name Jan 07, 2024 09:30 AM AMBULATORY - [facility] MEDICIN E [facility] [place] [facility] Jan 08, 2024 09:00 AM AMBULATORY - PSYCHIATRY [facility] [place] [facility] Jan 21, 2024 10:30 AM AMBULATORY - MEDICINE [facility] [place] [facility] Jan 21, 2024 11:30 AM AMBULATORY - MEDICINE [facility] [place] [place] [facility] Apr 24, 2024 02:00 PM AMBULATORY - MEDICINE [facility] [place] [facility] Apr 29, 2024 01:00 PM AMBULATORY - MEDICINE [facility] [place] [facility] Apr 29, 2024 02:00 PM AMBULATORY - MEDICINE [facility] [place] [place] [facility] May 13, 2024 09:30 AM AMBULATORY - MEDICINE [facility] [place] [place] [facility] May 21, 2024 11:00 AM AMBULATORY - MEDICINE [facility] [place] [place] [facility] May 22, 2024 01:30 PM AMBULATORY - MEDICINE [facility] [place] [facility] May 29, 2024 02:00 PM AMBULATORY - MEDICINE [facility] [place] [place] [facility] Jun 05, 2024 10:00 AM AMBULATORY - MEDICINE [facility] [place] [place] [facility] Jun 05, 2024 02:00 PM AMBULATORY - MEDICINE [facility] [place] [place] [facility] Jun 05, 2024 02:45 PM AMBULATORY - NONE [facility] [place] [facility] Jun 17, 2024 08:00 AM AMBULATORY - PSYCHIATRY [facility] [place] [facility] Jun 18, 2024 08:30 AM AMBULATORY - MEDICINE [facility] [place] [facility] Jun 18, 2024 11:00 AM [facility] Jun 26, 2024 09:00 AM [facility] Active, Pending, and Scheduled Orders This section includes a listing of several types of active, pending, and scheduled orders, including clinic medications orders, diagnostic test orders, procedure orders and consult orders; where the start date of the order is 45 days before the date of the Encounter or 45 days after the date of theEncounter. The data comes from all [place] treatment facilities. Test Date/Time Test Type Test Details Facility Name Jan 21, 2024 12:00 AM Laboratory - Chemi stry Order OCCULT BLOOD FIT X1 SCREEN(IN-HOUSE) STOOL FECES SP [facility] Vital Signs: All taken on the encounter date This section contains inpatient and outpatient Vital Signs collected on the date of the Encounter. Date/Time Temperature Pulse Blood Pressure Respiratory Rate SP02 Pain Height Weight Body Mass Index Source January 01, 2024 11:00 AM 98.1 88 134/88 16 96 0 238 [facility] Social History: Smoking Status (Most current) [...] 26, 2023 10:00 AM VA-TOBACCO [facility] Tobacco Use History This section includes a history of the smoking, or tobacco-related health factors, that were collected on or before the date of the Encounter. The data comes from the [place] facility where the Encounter took place. Date/Time Smoking Status/Tobacco Use Comment F acility Aug 26, 2023 10:00 AM [place]-TOBACCO QUIT 15 YRS OR MORE [facility] Apr 11, 2022 11:00 AM [facility]ACCO [facility] Apr 11, 2022 11:00 AM [place]-TOBACCO QUIT 15 YRS OR MORE [facility] Advance Directives: All historical and current Section [...] ADVANCE DIRECTIVE SHARLENE SIDHU [facility] Sep 10, 2005 ADVANCE DIRECTIVE DISCUSSION FRANCE RODRIGEZ [facility] Aug 14, 2004 ADVANCE DIRECTIVE DISCUSSION REGULO AGUILAR CASTRORY CONTRERAS Radiology Reports: +/- 30 days of the [...] the Encounter. The data comes from all [place] treatment facilities. Date/Time Radiology Report Provider Source Jan 21, 2024 11:02 AM MANDIBLE LESS THAN 4 VIEWS: ELVIN REYNA [id number] -[id number] M Exm Date: JAN 21, 2024@11:02 Req Phys: GANGA DAVID Loc: CWM/NO/SICK CALL PA (Req'g Loc Img Loc: [facility] 1 Service: Unknown [facility] , (Case [id number] COMPLETE) MANDIBLE LESS THAN 4 VIEWS (RAD Detailed) CPT:28437 Reason for Study: SWELLING AND PAIN Clinical History: R/O MASS Report Status: Verified Date Reported: JAN 21, 2024 Date Verified: JAN 21, 2024 Logistics Planning Engineer E-Sig: Report: PROCEDURE: Stat mandible 3 images [...] Recommend CT/MRI. READING PHYSICIAN: Maged Pastor M.D. -[id number] 01/21/2024 12:15 EDT [facility] National Teleradiology Program [phone] (For Medical Practitioner Use Only) Attention Patients / Veterans: If you have questions or concerns about these test results, please contact your ordering provider or primary care team. Primary Diagnostic Code: SIGNIFICANT ABNORMALITY, ATTN NEEDED Primary Interpreting Staff: RADIOLOGY,OUTSIDE SERVICE, Staff Physician / RADIOLOGY,OUTSIDE SERVICE [place] [facility] [place] [facility] Encounter Notes: All associated encounter notes This section contains the clinical notes associated to the Encounter. Date/Time Encounter Note(s) Provider Source January 01, 2024 11:00 AM PRIMARY CARE NOTE: LOCAL TITLE: WALK-IN NOTE PRIMARY CARE (T) STANDARD TITLE: PRIMARY CARE NOTE DATE OF NOTE: JANUARY 01, 2024@11:00 ENTRY DATE: JANUARY 01, 2024@11:37:14 AUTHOR: INGRID STREETER COSIGNER: URGENCY: STATUS: COMPLETED Patient identity was verified using two identifiers, per [place] Policy: Full Name, Date of ELVIN REYNA is a 48 year old who presents to the clinic for Left ear clogged Visit Type: Clinic Unscheduled Primary Care Clinic Triage: S: Reports after mowing and lawncare Left ear clogged, sniffling and sneezing. No fever no chills. Denies Hx of allergies Head and Neck: Stuffy or running nose Current Home Treatment: none Allergies: Patient has answered NKA Medications: Active Outpatient Medications (including Supplies): Active Outpatient Medications Status 1) AZELASTINE 137MCG/SPRAY 200D NASAL INHL SPRAY 1 SPRAY ACTIVE INTO EACH NOSTRIL ONCE DAILY FOR SEASONAL RUNNY NOSE 2) CHOLECALCIF 50MCG (D3-2,000UNIT) TAB TAKE ONE TABLET ACTIVE BY MOUTH ONCE DAILY FOR VITAMIN SUPPLEMENTATION 3) OMEPRAZOLE 20MG EC CAP TAKE ONE CAPSULE BY MOUTH ONCE ACTIVE DAILY Pending Outpatient Medications Status 1) AZELASTINE 137MCG/SPRAY 200D NASAL INHL SPRAY 1 SPRAY PENDING INTO EACH NOSTRIL ONCE DAILY 2) CETIRIZINE HCL 10MG TAB TAKE ONE TABLET BY MOUTH ONCE PENDING DAILY FOR ALLERGIES Active Non-VA Medications Status 1) Non-VA PROBIOTIC (CULTURELLE DIGESTIVE DAILY) CAP/TAB ACTIVE BY MOUTH 6 Total Medications Since you last saw your VA PC Provider, did you have any of the following? None A: Tympanic membrane was visualized, intact and pearly white in color. No visible swelling or irriation noted in cancal afebrile P: RN appointment, Review with PCP Home Care instructions Comment: Review with PCP. Presciption renewed. Patient Education: Medication, Home care instructions Sexual Orientation: The patient thinks of their sexual orientation as: Straight or Heterosexual /es/ INGRID STREETER REGISTERED NURSE Signed: 01/01/2024 11:[address] [facility] HCS
--- OUTSIDE RECORDS SUMMARY | 2024-07-17 16:40 | XMS_ITS | Encounter Summary ---
Author Name [facility] [place] Address [address] [place] [address] Care Team Providers Care Inventory Control Manager Name Role Phone LORETTA HANSON Primary Care [...] to Policy Gonzalez [facility] MEDICAID [facility] Aug 05, 2021 01 [id number] ELVIN WALSH PATIENT Selected Encounter This section includes the information on record at [place] for the Encounter. Date/Time Encounter Type Encounter Description Reason Provider Source December 17, 2023 03:00 PM THERAPEUTIC EXERCISES OCCUPATIONAL THERAPY ICD-10-CM M79.601 Pain in right arm VENITA TSANG Aditi Encounter Template Text not used by [place] Assessments - Encounter Diagnoses This section includes the primary and secondary diagnoses documented for the Encounter. Date/Time Primary/Secondary Diagnosis Diagnosis Name Provider Source December 17, 2023 04:14 PM PRIMARY Pain in right arm [facility] [place] [facility] Plan of Treatment: Future Appointments (+ 6 months) and Future Tests (+/- 45 days) The Plan of Treatment section includes future care activities for the patient from all [place] [facility] This section includes future appointments and future orders which are active, pending or scheduled. Future Appointments This section includes appointments that were scheduled to occur 6 months from the date of the Encounter, up to a maximum of 20 appointments. The data comes from all [place] treatment facilities. Appointment Date/Time Appointment Type Appointme nt Facility Name December 24, 2023 03:00 PM AMBULATORY - REHAB MEDICIN E [facility] [place] [facility] January 01, 2024 11:00 AM AMBULATORY - MEDICINE [facility] [place] [facility] Jan 07, 2024 09:30 AM AMBULATORY - REHAB MEDICIN E [facility] [place] [facility] Jan 08, 2024 09:00 AM AMBULATORY - PSYCHIATRY [facility] [place] [facility] Jan 21, 2024 10:30 AM AMBULATORY - MEDICINE [facility] [place] [facility] Jan 21, 2024 11:30 AM AMBULATORY - MEDICINE [facility] [place] [facility] Apr 24, 2024 02:00 PM AMBULATORY - MEDICINE [facility] [place] [facility] Apr 29, 2024 01:00 PM AMBULATORY - MEDICINE [facility] [place] [facility] Apr 29, 2024 02:00 PM AMBULATORY - MEDICINE [facility] [place] [facility] May 13, 2024 09:30 AM AMBULATORY - MEDICINE [facility] [place] [facility] May 21, 2024 11:00 AM AMBULATORY - MEDICINE [facility] [place] [facility] May 22, 2024 01:30 PM AMBULATORY - MEDICINE [facility] [place] [facility] May 29, 2024 02:00 PM AMBULATORY - MEDICINE [facility] [place] [facility] Jun 05, 2024 10:00 AM AMBULATORY - MEDICINE [facility] [place] [facility] Jun 05, 2024 02:00 PM AMBULATORY - MEDICINE [facility] [place] [facility] Jun 05, 2024 02:45 PM AMBULATORY - NONE [facility] [place] [facility] Jun 17, 2024 08:00 AM [facility] Jun 18, 2024 08:30 AM [facility] Jun 18, 2024 11:00 AM AMBULATORY - PSYCHIATRY [facility] Active, Pending, and Scheduled Orders This section includes a listing of several types of active, pending, and scheduled orders, including clinic medications orders, diagnostic test orders, procedure orders and consult orders; where the start date of the order is 45 days before the date of the Encounter or 45 days after the date of theEncounter. The data comes from all [place] treatment facilities. Test Date/Time Test Type Test Details Facility Name Jan 21, 2024 12:00 AM Laboratory - Chemi stry Order OCCULT BLOOD FIT X1 SCREEN(IN-HOUSE) STOOL FECES SP [facility] Social History: Smoking Status (Most current) and Tobacco Use (All prior to encounter date) This section includes the most current, and the historical, smoking and tobacco- related health factors from the [place] facility where the Encounter took place. Current Smoking Status This section includes the most current smoking, or tobacco-related health factor, from the [place] facility where the Encounter took place. Date/Time Current Smoking Status Comment Facil ity Aug 26, 2023 10:00 AM VA-TOBACCO FORMER USER [facility] Tobacco Use History This section includes a history of the smoking, or tobacco-related health factors, that were collected on or before the date of the Encounter. The data comes from the [place] facility where the Encounter took place. Date/Time Smoking Status/Tobacco Use Comment F acility Aug 26, 2023 10:00 AM [place]-TOBACCO QUIT 15 YRS OR MORE [facility] Apr 11, 2022 11:00 AM [place]-TOBACCO FORMER USER [facility] Apr 11, 2022 11:00 AM [place]-TOBACCO QUIT 15 YRS OR MORE [facility] Advance Directives: All historical and current Section Date Range: From patient's date of to the date document was created. This section includes ALL of a patient's completed or amended [place] Advance and Rescinded Directives. The entries below indicate that a directive exists for the patient, but an actual copy is not included with this document. The data comes from all [place] facilities. Date Advance Directives Provider Source May 16, 2011 ADVANCE DIRECTIVE DISCUSSION TON SARAVIA Sep 27, 2005 ADVANCE DIRECTIVE SHARLENE SIDHU [facility] Sep 10, 2005 ADVANCE DIRECTIVE DISCUSSION SIDDIQUIFRANCE [facility] Aug 14, 2004 ADVANCE DIRECTIVE DISCUSSION REGULO AGUILAR ROSA CONTRERAS Encounter Notes: All associated encounter notes This section contains the clinical notes associated to the Encounter. Date/Time Encounter Note(s) Provider Source December 17, 2023 03:00 PM OCCUPATIONAL THERAPY NOTE: LOCAL TITLE: OCCUPATIONAL THERAPY STANDARD TITLE: OCCUPATIONAL THERAPY NOTE DATE OF NOTE: DECEMBER 17, 2023@15:00 ENTRY DATE: DECEMBER 17, 2023@15:00:48 AUTHOR: VENITA TSANG COSIGNER: URGENCY: STATUS: COMPLETED Initial Evaluation date: November Progress Note Date: Treatment #: 3 Treatment time: 30 minutes Diagnosis: Pain in right Arm(ICD-10-CM M79.601) Provider: Giancarlo Kraft PCP OT Treatment Precautions: Patient identified by full name and date of SUBJECTIVE: Pt reports shoulder is doing good. Most of the time he does not have pain. He has to move his arm in a very specific position to get the pain to spike. Pain: 0/10 at rest, increasing to 8/10 at worst OBJECTIVE: THERAPEUTIC EXERCISE: *UBE 2' forward 2' backwards, 2.0 *wall slides flexion, 1x10 *shoulder rows with blue band, 2x10 *shoulder extensions with blue band, 2x10 *pec stretch in doorway, 30 second hold x2 *wall slides into abduction, 1x10 ADDED: *shoulder IR walk-outs w/ green band, 2x10 (issued green band) *shoulder ER walk-outs w/ green band, 2x10 Access Code: [email or web address] URL: [email or web address] Date: 12/17/2023 Prepared by: [place] [facility] Exercises - Shoulder Flexion Wall Slide with Towel - 1 x daily - 7 x weekly - 3 sets - 10 reps - Standing Bilateral Low Shoulder Row with Anchored Resistance - 1 x daily - 7 x weekly - 3 sets - 10 reps - Shoulder Extension with Resistance - 1 x daily - 7 x weekly - 3 sets - 10 reps - Doorway Pec Stretch at 60 Elevation - 1 x daily - 7 x weekly - 3 sets - 3 reps - 30 hold - Standing Shoulder Abduction Slides at Wall - 1 x daily - 7 x weekly - 3 sets - 10 reps - Shoulder Internal Rotation Reactive Isometrics - 1 x daily - 7 x weekly - 3 sets - 10 reps - Shoulder External Rotation Reactive Isometrics - 1 x daily - 7 x weekly - 3 sets - 10 reps MINUTES: 15 MANUAL THERAPY: *manual therapy/mobilization to lateral delt/brachialis MINUTES: 8 THERAPEUTIC DYNAMIC ACTIVITIES: MINUTES: NEUROMUSCULAR EDUCATION: MINUTES: OTHER: MINUTES: MODALITIES: MINUTES: [] Contraindication screen completed prior to modality [] Skin intact pre/post SELF CARE/EDUCATION: MINUTES: Patient education was provided for all aspects of care during this clinical encounter. ASSESSMENT: Pt tolerated tx well this date. Pt reports his shoulder is feeling better. Added IR and ER iso walkouts w/ resistance. Pt tolerated and performed well. Pt reports no pain with TE and HEP. Ttp and tightness noted in lateral deltoid/ brachialis musculature. he reported feeling good during and following tx. PLAN: continue w/ OT POC; modify tx as needed. pt is in agreement w/ this POC. This treatment was primarily performed by TIERNEY Staley, however, IVenita MS OTR/NAY Wu, was present during the course of this treatment in its entirety providing direct supervision for this student, I agree with treatment and plan of care as stated above. /roberto/ MS NIK Castillo/NAY Wu Occupational Therapist Signed: 12/17/2023 16:14 Receipt Acknowledged By: 12/17/2023 16:18 /roberto/ SYDNEY PALOMARES OCCUPATIONAL THERAPY STUDENT VENITA TSANG [facility]
--- OUTSIDE RECORDS SUMMARY | 2024-07-17 16:40 | XMS_ITS | Encounter Summary ---
Author Name [facility] Organization [facility] Address [address] [place] [address] Care Team Providers Care Sap Bpc Architect Name Role Phone LORETTA HANSON Primary Care [...] to Policy Gonzalez [facility] MEDICAID [facility] Aug 05, 2021 01 [id number] ELVIN WALSH PATIENT Selected Encounter This section includes the information on record at [place] for the Encounter. Date/Time Encounter Type Encounter Description Reason Provider Source Dec 03, 2023 01:30 PM THERAPEUTIC EXERCISES OCCUPATIONAL THERAPY ICD-10-CM M79.601 Pain in right arm VENITA WEST Zahra Encounter Template Text not used by [place] Assessments - Encounter Diagnoses This section includes the primary and secondary diagnoses documented for the Encounter. Date/Time Primary/Secondary Diagnosis Diagnosis Name Provider Source Dec 03, 2023 03:54 PM PRIMARY Pain in right [facility] [place] [facility] Plan of Treatment: Future Appointments (+ 6 months) and Future Tests (+/- 45 days) The Plan of Treatment section includes future care activities for the [facility] This section includes future appointments and future orders which are active, pending or scheduled. Future Appointments This section includes appointments that were scheduled to occur 6 months from the date of the Encounter, up to a maximum of 20 appointments. The data comes from all [place] treatment facilities. Appointment Date/Time Appointment Type Appointme nt Facility Name December 05, 2023 08:00 AM [facility] [place] [facility] December 10, 2023 03:00 PM AMBULATORY - [facility]ICIN [facility] [place] [facility] December 17, 2023 03:00 PM AMBULATORY - [facility]ICIN [facility] [place] [facility] December 24, 2023 03:00 PM AMBULATORY - [facility]ICIN [facility] [place] [facility] January 01, 2024 11:00 AM [facility] [place] [facility] Jan 07, 2024 09:30 AM AMBULATORY - [facility]AB MEDICIN [facility] [place] [facility] Jan 08, 2024 09:00 AM AMBULATORY - PSYCHIATRY [facility] [place] [facility] Jan 21, 2024 10:30 AM [facility] [place] [facility] Jan 21, 2024 11:30 AM [facility] [place] [facility] Apr 24, 2024 02:00 PM AM[facility]ULATORY [facility] [place] [facility] Apr 29, 2024 01:00 PM AM[facility]ULATORY [facility] [place] [facility] Apr 29, 2024 02:00 PM AM[facility]ULATORY [facility] [place] [facility] May 13, 2024 09:30 AM AM[facility]ULATORY [facility] [place] [facility] May 21, 2024 11:00 AM AM[facility]ULATORY [facility] [place] [facility] May 22, 2024 01:30 PM [facility]ORY [facility] [place] [facility] May 29, 2024 02:00 PM [facility]ULATORY [facility] [place] [facility] Lab Results: +/- 30 days of the encounter This section includes the Chemistry and Hematology Lab Results on record with [facility] for the patient. Radiology Reports and Pathology Reports are provided separately, in subsequent sections. Lab Results This section contains the Chemistry/Hematology Results that were resulted 30 days before or 30 daysafter the date of the Encounter. Date/Time Source Result Type Result - Unit Interpretation Reference Range Comment Nov 11, 2023 09:54 AM [facility] [id number] Specimen Type: BLOOD Comment: SPECIMEN SHIPPED ON MANIFEST [id number] Ordering Provider: MAGGIE GALVAN Report Released Date/Time: Sep 13, 2023 12:46 PM Reporting Lab: [address] [id number] Performing Lab: [facility] Social History: Smoking Status (Most current) and Tobacco Use (All prior to encounter date) This section includes the most current, and the historical, smoking and tobacco- related health factors from the [place] facility where the Encounter took place. Current Smoking Status This section includes the most current smoking, or tobacco-related health factor, from the [place] facility where the Encounter took place. Date/Time Current Smoking Status Comment Terri ity Aug 26, 2023 10:00 AM VA-TOBACCO FORMER USER [facility] Tobacco Use History This section includes a history of the smoking, or tobacco-related health factors, that were collected on or before the date of the Encounter. The data comes from the [place] facility where the Encounter took place. Date/Time Smoking Status/Tobacco Use Comment F acility Aug 26, 2023 10:00 AM [place]-TOBACCO QUIT 15 YRS OR MORE [facility] Apr 11, 2022 11:00 AM VA-TOBACCO FORMER USER [facility] Apr 11, 2022 11:00 AM [place]-TOBACCO QUIT 15 YRS OR MORE [facility] Advance Directives: All historical and current Section Date Range: From patient's date of to the date document was created. This section includes ALL of a patient's completed or amended [facility] Advance and Rescinded Directives. The entries below indicate that a directive exists for the patient, but an actual copy is not included with this document. The data comes from all [place] facilities. Date Advance Directives Provider Source May 16, 2011 ADVANCE DIRECTIVE DISCUSSION [place] Sep 27, 2005 ADVANCE DIRECTIVE NAHUMSHARLENECAMRYN WALKER [facility] Sep 10, 2005 ADVANCE DIRECTIVE DISCUSSION FRANCE RODRIGEZ [facility] Aug 14, 2004 ADVANCE DIRECTIVE DISCUSSION REG[place]O AGU[place]AR [place] Encounter Notes: All associated encounter notes This section contains the clinical notes associated to the Encounter. Date/Time Encounter Note(s) Provider Source Dec 03, 2023 01:25 PM OCCUPATIONAL MEDIC INE CONSULT: LOCAL TITLE: CONSULT REPORT/OCCUPATIONAL THERAPY STANDARD TITLE: OCCUPATIONAL MEDICINE CONSULT DATE OF NOTE: DEC 03, 2023@13:25 ENTRY DATE: DEC 03, 2023@13:25:58 AUTHOR: VENITA WEST COSIGNER: LORETTA HANSON URGENCY: STATUS: COMPLETED Initial Evaluation date: November Progress Note Date: Treatment #: eval Treatment time: 45 minutes Diagnosis: Pain in right Arm(ICD-10-CM M79.601) Provider: Giancarlo Kraft PCP OT Treatment Precautions: Patient identified by full name and date of S: Mr. Reyna is a 48 y/o [facility] male who was referred to OT for R dominant arm pain. He was seen in the OT clinic on 12/03/2023. Pt is known from previous sessions. PMH: Active problems - Computerized Problem List is the source for the followin. Gallbladder polyp 2. Pain in right arm 3. 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 Sleep apnea 6. Overweight 7. GERD - Gastro-Esophageal Reflux Disease (SCT 146590401) 8. Anxiety ([facility] [id number]) 9. Hyperlipidemia ([facility] [id number]) 10. Fatty liver 11. Family history of diabetes mellitus TAYLER: Pt reports pain in R upper arm/ shoulder with active abduction and internal rotation. Pt reports this pain started about a month ago and it comes and goes with specific motions. The pain does not bother him in his sleep and does not wake him up. he experiences no pain at rest. Imaging: None in CPRS Pain Level: 0/10 at rest, increasing to 8/10 at worst Pain Location: anterior shoulder, biceps, outer shoulder Aggravating Factors: abduction, internal rotation of shoulder Alleviating Factors: avoiding motions O: Pt is R hand dominant. He is working doing [employer] analysis. 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 hx; - [employer]. Hobbies; enjoys hiking, biking, walking, reading and writing. Enjoys cinema and music. Plays the Sanguine. Clinical Presentation: no atrophy of rotator cuff musculature noted rounded shoulders, FHP Palpation: ttp and tightness over brachialis/lateral delt/anterior shoulder musculature AROM: Shoulder: [R] [L] Flexion: WNL WNL Abduction: WNL WNL IR: WNL WNL ER: WNL WNL *(+) for discomfort at 90* abduction. able to move to full ROM. MMT: Shoulder: [R] [L] Flexion: 5/5 5/5 Abduction: 5/5 5/5 IR: 5/5 5/5 ER: 5/5 5/5 Resisted Motions: denies pain Special Tests: Dia: (+) R Neers: (-) R Empty Can: (-) R Drop Arm: (-) R Sensation: denies paresthesia's; intact to light touch. TX: *UBE 2' forward 2' backwards, 2.0 *wall slides flexion, 1x10 *shoulder rows with blue band, 2x10 (issued blue band for use at home) *shoulder extensions with blue band, 2x10 *pec stretch in doorway, 30 second hold x2 *discussed maintaining functional upright posture w/ scapular retraction when possible. recommended taking breaks from computer use every 20 to 30 minutes. pt v/u. *manual therapy/mobilization to lateral delt/brachialis Access Code: [email or web address] URL: [email or web address] Date: 12/03/2023 Prepared by: [facility] Exercises - Shoulder Flexion Wall Slide with [...] sets - 3 reps - 30 hold ASSESSMENT: Johnie is a 47 y/o male whom presents to the OT clinic w/ R dominant SA impingement as evidenced by pt report, clinical presentation, and positive provocative testing. Discussed beginning tx w/ a focus on scapular strengthening which he was in agreement w/. He tolerated tx well and reported improved tightness in the brachialis following. He was interested in trialing additional tx sessions in order to improve sx's. was issued HEP and will be seen for conservative care in the OT clinic. PLAN: Pt will benefit from skilled OT 1-2x/week for 4-6 weeks. Tx to include: R shoulder ROM, R shoulder strengthening, scap stab, mobilization/manual therapy, pt. education, and modalities: ice, heat. Pt is in agreement w/ this POC. LTG's (6-8 weeks): 1. Pain: 2-3, at worst R shoulder 3. pt will report 50% improvement in symptoms since initiating tx STG's (3-6 weeks): 1. (I) w/ HEP 2. Pain: <8/10 at worst in R shoulder 3. improved discomfort w/ active abduction/IR of the shoulder This treatment was primarily performed by TIERNEY Staley, however, Cyndie, Venita West, MS OTR/L, CHT, was present during the course of this treatment in its entirety providing direct supervision for this student, I agree with treatment and plan of care as stated above. The practitioner's co-signature on this note signifies agreement with plan of care and clinical diagnosis code. /roberto/ Venita West, MS OTR/L, CHT Occupational Therapist Signed: 12/03/2023 15:54 /es/ Loretta Hanson DNP, DIGITAL MARKETING SPECIALIST-BC, CNL Primary Care Nurse Practitioner Cosigned: 12/04/2023 07:22 Receipt Acknowledged By: 12/04/2023 12:42 /roberto/ SYDNEY PALOMARES OCCUPATIONAL THERAPY STUDENT [facility]
--- OUTSIDE RECORDS SUMMARY | 2024-07-17 16:40 | XMS_ITS ---
Author Name [facility] [place] [facility] [place] Address [address] [place] [address] Care Team Providers Care Estate Attorney Name Role Phone LORETTA HANSON Primary Care [...] Gonzalez's Name Patient's Relationship to Policy Gonzalez [facility] MED[facility] Aug 05, 2021 01 [id number] ELVIN WALSH PATIENT Selected Encounter This section includes the information on record at [place] for the Encounter. Date/Time Encounter Type Encounter Description Reason Provider Source December 05, 2023 08:00 AM OFFICE O/P EST MOD 30 MIN PODIATRY ICD-10-CM M77.41 Metatarsalgia , right foot SALAS KONG Zahra Encounter Template Text not used by [place] Assessments - Encounter Diagnoses This section includes the primary and secondary diagnoses documented for the Encounter. Date/Time Primary/Secondary Diagnosis Diagnosis Name Provider Source December 05, 2023 04:01 PM PRIMARY Metatarsalgia, right foot SALAS KONG [place] [facility] [place] [facility] December 05, 2023 04:01 PM SECONDARY Congenital pes planus, unspecified foot SALAS KONG [place] [facility] [place] [facility] December 05, 2023 04:01 PM SECONDARY Ingrowing nail SALAS KONG [place] [facility] [place] [facility] Plan of Treatment: Future Appointments (+ 6 months) and Future Tests (+/- 45 days) The Plan of Treatment section includes future care activities for the [facility] [place] [facility] This section includes future appointments and future orders which are active, pending or scheduled. Future Appointments This section includes appointments that were scheduled to occur 6 months from the date of the Encounter, up to a maximum of 20 appointments. The data comes from all [place] treatment facilities. Appointment Date/Time Appointment Type Appointme nt Facility Name December 10, 2023 03:00 PM [facility]UL[facility] [place] [facility] December 17, 2023 03:00 PM AMBULATORY [facility] [place] [facility] December 24, 2023 03:00 PM AMBULATORY - [facility]IC[facility] [place] [facility] January 01, 2024 11:00 AM AMBULATORY [facility] MEDICINE [facility] [place] [facility] Jan 07, 2024 09:30 AM AMBULATORY [facility] [place] [facility] Jan 08, 2024 09:00 AM AMBULATORY [facility] PS[facility]CHIATRY [facility] [place] [facility] Jan 21, 2024 10:30 AM AM[facility] MEDICINE [facility] [place] [facility] Jan 21, 2024 11:30 AM AM[facility]ULATORY [facility] MEDICINE [facility] [place] [facility] Apr 24, 2024 02:00 PM AM[facility]ULATORY [facility] MEDICINE [facility] [place] [facility] Apr 29, 2024 01:00 PM AM[facility]ULATORY [facility] MEDICINE [facility] [place] [facility] Apr 29, 2024 02:00 PM AM[facility]ULATORY [facility] MEDICINE [facility] [place] [facility] May 13, 2024 09:30 AM AM[facility]AT[facility] MEDICINE [facility] [place] [facility] May 21, 2024 11:00 AM AM[facility]AT[facility] MEDICINE [facility] [place] [facility] May 22, 2024 01:30 PM [facility] May 29, 2024 02:00 PM [facility] [place] [facility] Jun 05, 2024 10:00 AM [facility] Jun 05, 2024 02:00 PM AMBULATORY - MEDICINE [facility] Jun 05, 2024 02:45 PM AMBULATORY - NONE [facility] Lab Results: +/- 30 days of the encounter This section includes the Chemistry and Hematology Lab Results on record with [place] for the patient. Radiology Reports and Pathology Reports are provided separately, in subsequent sections. Lab Results This section contains the Chemistry/Hematology Results that were resulted 30 days before or 30 daysafter the date of the Encounter. Date/Time Source Result Type Result - Unit Interpretation Reference Range Comment Nov 11, 2023 09:54 AM [facility] [id number] [id number] Specimen Type: BLOOD Comment: SPECIMEN SHIPPED ON MANIFEST [id number] Ordering Provider: MAGGIE GALVAN Report Released Date/Time: Sep 13, 2023 12:46 PM Reporting Lab: [address] [id number] Performing Lab: [facility] Social History: Smoking Status (Most current) and Tobacco Use (All prior to encounter date) This section includes the most current, and the historical, smoking and tobacco- related health factors from the [place] facility where the Encounter took place. Current Smoking Status This section includes the most current smoking, or tobacco-related health factor, from the [place] facility where the Encounter took place. Date/Time Current Smoking Status Comment Terri ity Aug 26, 2023 10:00 AM [place]-TOBACCO FORMER USER [facility] Tobacco Use History This section includes a history of the smoking, or tobacco-related health factors, that were collected on or before the date of the Encounter. The data comes from the [place] facility where the Encounter took place. Date/Time Smoking Status/Tobacco Use Comment F acility Aug 26, 2023 10:00 AM [place] [facility] [place] [facility] Apr 11, 2022 11:00 AM [place] FORMER USER [place] [facility] Apr 11, 2022 11:00 AM [place] QUIT 15 YRS OR MORE [facility] Advance Directives: All historical and current Section Date Range: From patient's date of to the date document was created. This section includes ALL of a patient's completed or amended [place] Advance and Rescinded Directives. The entries below indicate that a directive exists for the patient, but an actual copy is not included with this document. The data comes from all [place] facilities. Date Advance Directives Provider Source May 16, 2011 ADVANCE DIRECTIVE DISCUSSION TON SARAVIA Sep 27, 2005 ADVANCE DIRECTIVE SHARLENE SIDHU [facility] Sep 10, 2005 ADVANCE DIRECTIVE DISCUSSION FRANCE RODRIGEZ [facility] Aug 14, 2004 ADVANCE DIRECTIVE DISCUSSION REG[facility]O [facility] Encounter Notes: All associated encounter notes This section contains the clinical notes associated to the Encounter. Date/Time Encounter Note(s) Provider Source December 24, 2023 03:16 PM LETTERS: LOCAL TITLE: PATIENT LETTER (B) STANDARD TITLE: LETTERS DATE OF NOTE: DECEMBER 24, 2023@15:16 ENTRY DATE: DECEMBER 24, 2023@15:16:45 AUTHOR: NINA MALDONADO EXP COSIGNER: URGENCY: STATUS: COMPLETED DEPARTMENT OF [facility] ELVIN REYNA JR [address] [place] [address], [id number] DECEMBER 24, 2023 Dear ELVIN REYNA, Your orthotics have arrived at the [facility] located at [address] [place] [id number]. Please call [phone] ext. [phone] for Nina or ext. [phone] for Selena to make an appointment to pick them up. Clinic Hours are 8:30am-3:30pm. Walk-ins may not be accommodated. We hope to see you soon. Podiatry Staff [address] [id number] N[facility]ADO [facility] December 05, 2023 08:01 AM PODIATRY NOTE: LOCAL TITLE: PODIATRY NOTE STANDARD TITLE: PODIATRY NOTE DATE OF NOTE: DECEMBER 05, 2023@08:01 ENTRY DATE: DECEMBER 05, 2023@08:01:23 AUTHOR: SALAS KONG EXP COSIGNER: URGENCY: STATUS: COMPLETED Podiatry [facility] Follow up Provider: Salas Kong Date: DECEMBER 05, [address] [address] Jul 48 MALE [id number] PATIENT PHONE - Primary Care: LORETTA HANSON Visit Concern:was originally see for orthotics and foot pain ball of foot, now here with c/o igt nail Subjective: Patient's main complaint regarding orthotics is pain under the second metatarsal area of the right foot. He has no symptoms on the left he does not report any history of injury or prior surgery. His pain is mostly on propulsive phase of gait and denies any sensation of paresthesias loss of sensation or numbness in the toes. The orthotics that he had received from [facility] [place] are uncomfortable to high in the arch and are not controlling the propulsive pain that he has. He did go back to them and they did something in the back room but has not helped. 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 He has had this condition for several years and the inflammation comes and goes periodically he had this similar condition on the left foot in the identical medial area and had an ablation procedure a number of years ago. 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 Service connections:Service Connected Disabilities with % [place]: [facility] [place] Medical problems active: Active Problem Gallbladder polyp K82.4 03/26/2023 LORETTA HANSON Pain in right arm M79.601 02/21/2023 LORETTA HANSON Poon's esophagus K22.70 09/18/2022 LORETTA HANSON Attention deficit hyperactivity dis 06/25/2022 ELISHA RAHMAN Sleep apnea G47.33 04/12/2022 LORETTA HANSON Overweight E66.3 04/12/2022 LORETTA HANSON GERD - Gastro-Esophageal Reflux Dis 04/11/2022 LORETTA HANSON Anxiety ([facility] [id number]) F41.9 04/11/2022 LORETTA HANSON Hyperlipidemia ([facility] [id number]) E78.5 04/11/2022 LORETTA HANSON Fatty liver K76.0 04/11/2022 LORETTA HANSON Family history of diabetes mellitus 04/11/2022 LORETTA HANSON Active mediciation: Active Outpatient Medications (including Supplies): Active Outpatient Medications Status 1) AZELASTINE 137MCG/SPRAY 200D NASAL INHL SPRAY 1 SPRAY ACTIVE INTO EACH NOSTRIL ONCE DAILY FOR SEASONAL RUNNY NOSE 2) CHOLECALCIF 50MCG (D3-2,000UNIT) TAB TAKE ONE TABLET ACTIVE BY MOUTH ONCE DAILY FOR VITAMIN SUPPLEMENTATION 3) DEXAMETHASONE 0.1/TOBRAMYC 0.3% OPH OINT APPLY SMALL ACTIVE AMOUNT INTO THE LEFT EYE AT BEDTIME 4) OMEPRAZOLE 20MG EC CAP TAKE ONE CAPSULE BY MOUTH ONCE ACTIVE DAILY Active Non-VA Medications Status 1) Non-VA PROBIOTIC (CULTURELLE DIGESTIVE DAILY) CAP/TAB ACTIVE BY MOUTH 5 Total Medications Allergies: Data on this list may not be complete. Please check V. FACILITY ALLERGY/ADR -------- [facility] NO KNOWN ALLERGIES [facility] NO KNOWN ALLERGIES [facility] NO KNOWN ALLERGIES [facility] [place] [facility] No Known Allergies [facility] Lab data: CBC TREND Collection DT Spec WBC RBC HGB HCT MCV MCH PLT 08/26/2023 09:57 BLOOD 7.02 5.84 H 16.5 48.2 82.5 28.3 207 02/28/2023 08:17 BLOOD 6.17 5.69 H 15.9 46.5 81.7 L 27.9 225 08/27/2022 11:44 BLOOD 7.48 6.04 H 16.5 48.5 80.3 L 27.3 238 04/11/2022 12:06 BLOOD 7.55 5.59 15.8 45.8 81.9 L 28.3 237 -- CHEM 7 TREND LAB CUMULATIVE SELECTED Collection DT Spec GLUCOSE BUN CREATIN Sodium K+/Pot CL CO2 08/26/2023 09:57 SERUM 98 16 1.01 140 4.2 109 21 02/28/2023 08:17 SERUM 88 14 1.00 140 4.2 105 24 08/27/2022 11:44 SERUM 93 13 1.14 138 4.4 105 23 04/11/2022 12:06 SERUM 83 14 1.00 137 4.6 106 22 LAB CUMULATIVE SELECTED 2 No selection items chosen for this component. CHEM 7 Results Collection DT Spec Sodium K+/Pot CL CO2 GLUCOSE BUN 08/26/2023 09:57 SERUM 140 4.2 109 21 98 16 02/28/2023 08:17 SERUM 140 4.2 105 24 88 14 08/27/2022 11:44 SERUM 138 4.4 105 23 93 13 04/11/2022 12:06 SERUM 137 4.6 106 22 83 14 -- PT INR TREND No data available -- Imaging Reports: == = Include data from 12/05/2022 to 12/05/2023 12/05/2023 08:01 CONFIDENTIAL IMAGING REPORTS SUMMARY pg. 1 ELVIN REYNA JR [id number] : 1975 II - Imaging Impression (max 1 occurrence) Date Procedure CPT Status Case # 03/14/2023 OUTSIDE MRI JOINT UPPER EXT [id number] [employer] 351 == REVIEW OF SYSTEMS: Unremarkable except for above complaints CONSTITUTIONAL: No fever/chills, unintended wgt loss. SKIN: No rashes, pruritis, new/changed skin lesions. ENDOCRINE: No excess thirst, heat/cold intolerance ALLERGY/IMMUNE: No recurrent infections. HEMATOL/LYMPH: No hx of abnl bleeding/bruising, no night sweats. EYES: No change in vision, no eye pain. ENMT: no tinnitus and hearing loss, has had audiology exam. No nasal bunny/rhinorrhea, sore throat/gums/mouth, difficulty swallowing. CARDIOVASCULAR: No chest pain, palpitations, no orthopnea/pnd. RESPIRATORY: No dyspnea at rest or with exertion. No cough, wheezing GI: No n/v, abd pain, change in bowel habits, blood in stool, melena. : No dysuria, hematuria, frequency. No difficulty starting the stream, hesitancy, nocturia. No difficulty achieving or maintaining erection. MSC-SKEL: No arthralgias, myalgias. NEURO: No vertigo, caballero, numbness/weakness, unstable balance or falls. PSYCHIATRIC: no depressed mood, racing thought, anxiety, or difficulty sleeping Physical exam: Well-nourished well-developed 48-year-old male awake alert oriented x3 independently ambulatory neatly dressed educated NAD. Palpable DP PT pulses bilateral skin warm pink well-hydrated Muscle bulk and tone normal motor strength 5/5 bilateral Fully sensate light touch pain and temperature bilateral Mild sagittal dominant pes planus bilateral Mild restriction with soft endpoint bilateral hallux with approximately 35 degrees of dorsiflexion with a soft endpoint restriction is noted. No joint enlargement to suggest DJD. Palpable tenderness under the second metatarsal but negative Abhilash test Plantar plate does not appear to be disrupted, no acute inflammation in the soft tissue[right foot]. Left foot without tenderness under the second metatarsal Alignment of the digits otherwise normal integument: Right medial nail is moderately ingrown, with mild soft tissue inflammation but no evidence of infection presently no active drainage. Impression: rt metatarsalgiua # 2 right medial IGTN Plan: cast for new orthotics with Ami pro shell, posted to neutral, grape arch fill, leather top-cover with met pads, and PPT forefoot with second metatarsal accommodation bilateral. sched IGTN P/A when time available. Presently provider is extremely overbooked only available time for procedures is during admin time which is presently already filled with patients for the next 4 weeks. In the meantime patient can continue soaking in Epsom salts. Return sooner if any fever chills nausea, vomiting increased redness, swelling, drianage, pain, or flu like symptoms, or go to nearest emergency room / urgent care for evaluation. -all sharpes cleared, processed and or disposed of according to SOP/MCP. -As part of the service the pertinent primary care, specialty care and urgent care notes have been reviewed as well as the patient's medication list, problem list, and current imaging as well as past imaging, laboratory data and other pertinent contributory consults. -All new and discontinued medications have been discussed in detail with the patient and or caregiver, including indications for additions and deletions, as well as possible side effects, interactions as foreseen, and risk of not taking as prescribed If applicable, the patient was advised clearly on application of wound care agents how to apply and when to apply. The patient was able to recitethis information back to the prescriber with good understanding and agreed to the plan of care as indicated above. -Plan of care discuss with the patient and or caregiver, including medical decision making which includes discussion of abnormal lab results, imaging and other diagnostic modalities as well as results of the physical exam and sustainability consultant opinions and recommendations as sought. Alternatives to surgery or outlined care above as appropriate have also been discussed. -The patient/ caregiver has displayed good understanding of above and with no further questions at this time. Patient is aware of next appointment and agrees to follow-up interval. Patient agrees to seek sooner follow up if any irregular events occur in between such as cardinal signs of infection, increased pain or deformity. -The on this visit was given information iFulfillment service and encouraged to enroll if not already having done so. /roberto/ SALAS KONG DPM PODIATRY ATTENDING Signed: 12/05/2023 16:01 SALAS KONG [facility]
--- OUTSIDE RECORDS SUMMARY | 2024-07-17 16:40 | XMS_ITS | Encounter Summary ---
Author Name [facility] [place] Organization [place] Address [address] [place] [address] Care Team Providers Care Social Media Content Manager Name Role Phone LORETTA HANSON Primary [...] Gonzalez's Name Patient's Relationship to Policy Gonzalez [facility] MEDICAID [facility] Aug 05, 2021 01 [id number] ELVIN WALSH PATIENT Selected Encounter This section includes the information on record at [place] for the Encounter. Date/Time Encounter Type Encounter Description Reason Provider Source December 10, 2023 03:00 PM THERAPEUTIC EXERCISES OCCUPATIONAL THERAPY ICD-10-CM M79.601 Pain in right arm VENITA TSANG Aditi Encounter Template Text not used by [place] Assessments - Encounter Diagnoses This section includes the primary and secondary diagnoses documented for the Encounter. Date/Time Primary/Secondary Diagnosis Diagnosis Name Provider Source December 10, 2023 04:08 PM PRIMARY Pain in right arm VENITA TSANG [facility] Plan of Treatment: Future Appointments (+ 6 months) and Future Tests (+/- 45 days) The Plan of Treatment section includes future care activities for the patient from all [place] [facility] This section includes future appointments and future orders which are active, pending or scheduled. Future Appointments This section includes appointments that were scheduled to occur 6 months from the date of the Encounter, up to a maximum of 20 appointments. The data comes from all [place] treatment facilities. Appointment Date/Time Appointment Type Appointme nt Facility Name December 17, 2023 03:00 PM AMBULAT[facility] [place] [facility] December 24, 2023 03:00 PM AMBULATORY - [facility]IC[facility] [place] [facility] January 01, 2024 11:00 AM AM[facility]ULATORY [facility] [place] [facility] Jan 07, 2024 09:30 AM AMBULATORY - [facility] MEDICIN [facility] [place] [facility] Jan 08, 2024 09:00 AM AMBULATORY [facility]IAT[facility] [place] [facility] Jan 21, 2024 10:30 AM [facility] [place] [facility] Jan 21, 2024 11:30 AM [facility] [place] [facility] Apr 24, 2024 02:00 PM AM[facility]ULATORY [facility]INE [facility] [place] [facility] Apr 29, 2024 01:00 PM AM[facility]ULATORY [facility] [place] [facility] Apr 29, 2024 02:00 PM AMBULATORY [facility] MEDICINE [facility] [place] [facility] May 13, 2024 09:30 AM AM[facility]ULATORY [facility] [place] [facility] May 21, 2024 11:00 AM AMBULATORY [facility]IC[facility] [place] [facility] May 22, 2024 01:30 PM AMBULATORY [facility] MEDICINE [facility] [place] [facility] May 29, 2024 02:00 PM AMBULATORY [facility] MEDICINE [facility] [place] [facility] Jun 05, 2024 10:00 AM AM[facility]ULATORY [facility] [place] [facility] Jun 05, 2024 02:00 PM AMBULATORY [facility]IC[facility] [place] [facility] Jun 05, 2024 02:45 PM AMBULATORY - NONE [facility] Active, Pending, and Scheduled Orders This section includes a listing of several types of active, pending, and scheduled orders, including clinic medications orders, diagnostic test orders, procedure orders and consult orders; where the start date of the order is 45 days before the date of the Encounter or 45 days after the date of theEncounter. The data comes from all [place] treatment facilities. Test Date/Time Test Type Test Details Facility Name Jan 21, 2024 12:00 AM Laboratory - Chemi stry Order OCCULT BLOOD FIT X1 SCREEN(IN-HOUSE) STOOL FECES SP [facility] Lab Results: +/- 30 days of the encounter This section includes the Chemistry and Hematology Lab Results on record with [place] for the patient. Radiology Reports and Pathology Reports are provided separately, in subsequent sections. Lab Results This section contains the Chemistry/Hematology Results that were resulted 30 days before or 30 daysafter the date of the Encounter. Date/Time Source Result Type Result - Unit Interpretation Reference Range Comment Nov 11, 2023 09:54 AM [facility] [id number] PGx Specimen Type: BLOOD Comment: SPECIMEN SHIPPED ON MANIFEST [id number] Ordering Provider: MAGGIE GALVAN Report Released Date/Time: Sep 13, 2023 12:46 PM Reporting Lab: [address] [id number] Performing Lab: [facility] Social History: Smoking Status (Most current) and Tobacco Use (All prior to encounter date) This section includes the most current, and the historical, smoking and tobacco- related health factors from the [place] facility where the Encounter took place. Current Smoking Status This section includes the most current smoking, or tobacco-related health factor, from the [place] facility where the Encounter took place. Date/Time Current Smoking Status Comment Facil ity Aug 26, 2023 10:00 AM VA-TOBACCO FORMER USER [facility] Tobacco Use History This section includes a history of the smoking, or tobacco-related health factors, that were collected on or before the date of the Encounter. The data comes from the [place] facility where the Encounter took place. Date/Time Smoking Status/Tobacco Use Comment F acility Aug 26, 2023 10:00 AM AR-TOBACCO QUIT 15 YRS OR MORE [facility] Apr 11, 2022 11:00 AM AR-TOBACCO FORMER USER [facility] Apr 11, 2022 11:00 AM AR-TOBACCO QUIT 15 YRS OR MORE [facility] Advance Directives: All historical and current Section Date Range: From patient's date of to the date document was created. This section includes ALL of a patient's completed or amended [place] Advance and Rescinded Directives. The entries below indicate that a directive exists for the patient, but an actual copy is not included with this document. The data comes from all [facility]. Date Advance Directives Provider Source May 16, 2011 ADVANCE DIRECTIVE DISCUSSION TON SARAVIA [place] Sep 27, 2005 ADVANCE DIRECTIVE SHARLENE SIDHU [facility] Sep 10, 2005 ADVANCE DIRECTIVE DISCUSSION FRANCE RODRIGEZ [facility] Aug 14, 2004 ADVANCE DIRECTIVE DISCUSSION REGULO AGUILAR [place] Encounter Notes: All associated encounter notes This section contains the clinical notes associated to the Encounter. Date/Time Encounter Note(s) Provider Source December 10, 2023 03:07 PM OCCUPATIONAL THERAPY NOTE: LOCAL TITLE: OCCUPATIONAL THERAPY STANDARD TITLE: OCCUPATIONAL THERAPY NOTE DATE OF NOTE: DECEMBER 10, 2023@15:07 ENTRY DATE: DECEMBER 10, 2023@15:07:31 AUTHOR: VENITA TSANG EXP COSIGNER: URGENCY: STATUS: COMPLETED Initial Evaluation date: November Progress Note Date: Treatment #: 2 Treatment time: 30 minutes Diagnosis: Pain in right Arm(ICD-10-CM M79.601) Provider: Giancarlo Kraft PCP OT Treatment Precautions: Patient identified by full name and date of SUBJECTIVE: Pt reports shoulder is doing better. Has been doing exercises. Pain: 0/10 at rest, increasing to 8/10 at worst OBJECTIVE: THERAPEUTIC EXERCISE: *UBE 2' forward 2' backwards, 2.0 *wall slides flexion, 1x10 *shoulder rows with blue band, 2x10 *shoulder extensions with blue band, 2x10 *pec stretch in doorway, 30 second hold x2 ADDED: *wall slides into abduction, 1x10 Access Code: [email or web address] URL: [email or web address] Date: 12/10/2023 Prepared by: EPHRAIM [facility] Exercises - Shoulder Flexion Wall Slide with [...] reports his shoulder is feeling better. Added wall slides into scaption, pt tolerated and performed well, noting some discomfort. Ttp and tightness noted in lateral deltoid/ brachialis musculature. he reported feeling good during and following tx. PLAN: continue w/ OT POC; modify tx as needed. pt is in agreement w/ this POC. This treatment was primarily performed by TIERNEY Staley, however, I, MS NIK Avila/NAY Wu, was present during the course of this treatment in its entirety providing direct supervision for this student, I agree with treatment and plan of care as stated above. /roberto/ MS NIK Castillo/NAY Wu Occupational Therapist Signed: 12/10/2023 16:08 Receipt Acknowledged By: 12/10/2023 16:09 /roberto/ SYDNEY PALOMARES OCCUPATIONAL THERAPY STUDENT [facility]
--- OUTSIDE RECORDS SUMMARY | 2024-07-17 16:40 | XMS_ITS | Encounter Summary ---
Author Name [place] Address [address] [place] [address] Care Team Providers Care Vehicle Painter Name Role Phone LORETTA HANSON Primary Care [...] Gonzalez's Name Patient's Relationship to Policy Gonzalez [facility] MEDICAID [facility] Aug 05, 2021 01 [id number] ELVIN WALSH PATIENT Selected Encounter This section includes the information on record at [place] for the Encounter. Date/Time Encounter Type Encounter Description Reason Provider Source December 24, 2023 03:00 PM THERAPEUTIC EXERCISES OCCUPATIONAL THERAPY ICD-10-CM M79.601 Pain in right arm VENITA WEST Aditi Encounter Template Text not used by [place] Assessments - Encounter Diagnoses This section includes the primary and secondary diagnoses documented for the Encounter. Date/Time Primary/Secondary Diagnosis Diagnosis Name Provider Source December 25, 2023 07:21 AM PRIMARY Pain in right arm [facility]ITA WEST [facility] Plan of Treatment: Future Appointments (+ 6 months) and Future Tests (+/- 45 days) The Plan of Treatment section includes future care activities for the patient from all [place] [facility]. This section includes future appointments and future orders which are active, pending or scheduled. Future Appointments This section includes appointments that were scheduled to occur 6 months from the date of the Encounter, up to a maximum of 20 appointments. The data comes from all [place] treatment facilities. Appointment Date/Time Appointment Type Appointme nt Facility Name January 01, 2024 11:00 AM AM[facility]ORY [facility] [place] [facility] Jan 07, 2024 09:30 AM AMBULATORY - [facility]ICIN [facility] [place] [facility] Jan 08, 2024 09:00 AM AMBULATORY - PS[facility]CHIATRY [facility] [place] [facility] Jan 21, 2024 10:30 AM AMBULATORY [facility] MEDICINE [facility] [place] [facility] Jan 21, 2024 11:30 AM AM[facility]ULATORY [facility] MEDICINE [facility] [place] [facility] Apr 24, 2024 02:00 PM AMBULATORY - MEDICINE [facility] [place] [facility] Apr 29, 2024 01:00 PM AMBULATORY - MEDICINE [facility] [place] [facility] Apr 29, 2024 02:00 PM AMBULATORY [facility] MEDICINE [facility] [place] [facility] May 13, 2024 09:30 AM AMBULATORY [facility] MEDICINE [facility] [place] [facility] May 21, 2024 11:00 AM AMBULATORY [facility] MEDICINE [facility] [place] [facility] May 22, 2024 01:30 PM AMBULATORY [facility] MEDICINE [facility] [place] [facility] May 29, 2024 02:00 PM AMBULATORY - MEDICINE [facility] [place] [facility] Jun 05, 2024 10:00 AM AMBULATORY - MEDICINE [facility] [place] [facility] Jun 05, 2024 02:00 PM AMBULATORY - MEDICINE [facility] [place] [facility] Jun 05, 2024 02:45 PM AMBULATORY - NONE [facility] [place] [facility] Jun 17, 2024 08:00 AM AMBULATORY - PSYCHIATRY [facility] [place] [facility] Jun 18, 2024 08:30 AM [facility] Jun 18, 2024 11:00 AM AMBULATORY - PSYCHIATRY [facility] Active, Pending, and Scheduled Orders This section includes a listing of several types of active, pending, and scheduled orders, including clinic medications orders, diagnostic test orders, procedure orders and consult orders; where the start date of the order is 45 days before the date of the Encounter or 45 days after the date of theEncounter. The data comes from all [place] treatment facilities. Test Date/Time Test Type Test Details Facility Name Jan 21, 2024 12:00 AM Laboratory - Chemi stry Order OCCULT BLOOD FIT X1 SCREEN(IN-HOUSE) STOOL FECES SP [facility] Social History: Smoking Status (Most current) and Tobacco Use (All prior to encounter date) This section includes the most current, and the historical, smoking and tobacco- related health factors from the [place] facility where the Encounter took place. Current Smoking Status This section includes the most current smoking, or tobacco-related health factor, from the [place] facility where the Encounter took place. Date/Time Current Smoking Status Comment Facil ity Aug 26, 2023 10:00 AM [place]-TOBACCO FORMER USER [facility] Tobacco Use History This section includes a history of the smoking, or tobacco-related health factors, that were collected on or before the date of the Encounter. The data comes from the [place] facility where the Encounter took place. Date/Time Smoking Status/Tobacco Use Comment F acility Aug 26, 2023 10:00 AM [place]-TOBACCO QUIT 15 YRS OR MORE [facility] Apr 11, 2022 11:00 AM [place]-TOBACCO FORMER USER [facility] Apr 11, 2022 11:00 AM [place]-TOBACCO QUIT 15 YRS OR MORE [facility] Advance Directives: All historical and current Section Date Range: From patient's date of to the date document was created. This section includes ALL of a patient's completed or amended [place] Advance and Rescinded Directives. The entries below indicate that a directive exists for the patient, but an actual copy is not included with this document. The data comes from all [place] facilities. Date Advance Directives Provider Source May 16, 2011 ADVANCE DIRECTIVE DISCUSSION TON SARAVIA Sep 27, 2005 ADVANCE DIRECTIVE SHARLENE SIDHU [facility] Sep 10, 2005 ADVANCE DIRECTIVE DISCUSSION FRANCE RODRIGEZ [facility] Aug 14, 2004 ADVANCE DIRECTIVE DISCUSSION REGULO AGUILAR [facility] Radiology Reports: +/- 30 days of the [...] the Encounter. The data comes from all [place] treatment facilities. 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 READING PHYSICIAN: Maged Pastor M.D. -[phone] 01/21/2024 12:15 EDT [facility] National Teleradiology Program [phone] (For Medical Practitioner Use Only) Attention Patients / Veterans: If you have questions or concerns about these test results, please contact your ordering provider or primary care team. Primary Diagnostic Code: SIGNIFICANT ABNORMALITY, ATTN NEEDED Primary Interpreting Staff: RADIOLOGY,OUTSIDE SERVICE, Staff Physician / RADIOLOGY,OUTSIDE SERVICE [place] [facility] [place] [facility] Encounter Notes: All associated encounter notes This section contains the clinical notes associated to the Encounter. Date/Time Encounter Note(s) Provider Source December 24, 2023 02:59 PM OCCUPATIONAL THERAPY NOTE: LOCAL TITLE: OCCUPATIONAL THERAPY STANDARD TITLE: OCCUPATIONAL THERAPY NOTE DATE OF NOTE: DECEMBER 24, 2023@14:59 ENTRY DATE: DECEMBER 24, 2023@14:59:05 AUTHOR: VENITA WEST COSIGNER: URGENCY: STATUS: COMPLETED Initial Evaluation date: November Progress Note Date: Treatment #: 4 Treatment time: 30 minutes Diagnosis: Pain in right Arm(ICD-10-CM M79.601) Provider: Giancarlo David PCP OT Treatment Precautions: Patient identified by full name and date of SUBJECTIVE: Pt reports shoulder is doing much better. Almost no pain. Pain: 0/10 at rest, increasing to 1-2/10 at worst OBJECTIVE: THERAPEUTIC EXERCISE: *UBE 2' forward 2' backwards, 2.0 *wall slides flexion, 1x10 *shoulder rows with blue band, 2x10 *shoulder extensions with blue band, 2x10 *pec stretch in doorway, 30 second hold x2 *wall slides into abduction, 1x10 *shoulder IR walk-outs w/ green band, 2x10 (issued green band) *shoulder ER walk-outs w/ green band, 2x10 Access Code: [email or web address] URL: [email or web address] Date: 12/17/2023 Prepared by: [facility] Exercises - Shoulder Flexion Wall Slide with [...] 15 MANUAL THERAPY: *manual therapy/mobilization to lateral delt/brachialis, seated MINUTES: 8 THERAPEUTIC DYNAMIC ACTIVITIES: MINUTES: NEUROMUSCULAR EDUCATION: MINUTES: OTHER: MINUTES: MODALITIES: MINUTES: [] Contraindication screen completed prior to modality [] Skin intact pre/post SELF CARE/EDUCATION: MINUTES: Patient education was provided for all aspects of care during this clinical encounter. ASSESSMENT: Pt tolerated tx well this date. Pt reports his shoulder is much better with little to no pain. Pt reports 75% improvements since imitating tx. Pt denies pain with exercises. Ttp and tightness noted in lateral deltoid/ brachialis musculature. he reported feeling good during and following tx. PLAN: continue w/ OT POC. f/u in 2 weeks to monitor progress and possible d/c, pt is in agreement w/ this POC. This treatment was primarily performed by TIERNEY Staley, however, I, Venita [place], MS NIK/NAY Wu, was present during the course of this treatment in its entirety providing direct supervision for this student, I agree with treatment and plan of care as stated above. /roberto/ MS NIK Castillo/NAY Wu Occupational Therapist Signed: 12/25/2023 07:22 Receipt Acknowledged By: 12/25/2023 08:16 /roberto/ SYDNEY PALOMARES OCCUPATIONAL THERAPY STUDENT [facility]ITA WEST [facility]
--- OUTSIDE RECORDS SUMMARY | 2024-07-17 16:40 | XMS_ITS ---
Author Name [facility] [place] [facility] [place] Address [address] [place] [address] Care Team Providers Care Thread Inspector Name Role Phone LORETTA HANSON Primary Care [...] [place] H Aug 05, 2021 01 [id number] ELVIN WALSH PATIENT Selected Encounter This section includes the information on record at [place] for the Encounter. Date/Time Encounter Type Encounter Description Reason Provider Source Jan 07, 2024 09:30 AM MANUAL THERAPY 1/> [facility] OCCUPATIONAL THERAPY ICD-10-CM M79.601 Pain in right arm VENITA WEST Encounter Template Text not used by [place] Assessments - Encounter Diagnoses This section includes the primary and secondary diagnoses documented for the Encounter. Date/Time Primary/Secondary Diagnosis Diagnosis Name Provider Source Jan 07, 2024 03:12 PM PRIMARY Pain in right arm MACHON,VENITA E [facility] [place] [facility] Plan of Treatment: Future Appointments (+ 6 months) and Future Tests (+/- 45 days) The Plan of Treatment section includes future care activities for the patient from [facility] [place] [facility] This section includes future appointments and future orders which are active, pending or scheduled. Future Appointments This section includes appointments that were scheduled to occur 6 months from the date of the Encounter, up to a maximum of 20 appointments. The data comes from all [place] treatment facilities. Appointment Date/Time Appointment Type Appointme nt Facility Name Jan 08, 2024 09:00 AM AMBULATORY - PSYCHIATRY [facility] [place] [facility] Jan 21, 2024 10:30 AM AMBULATORY - MEDICINE [facility] [place] [facility] Jan 21, 2024 11:30 AM AMBULATORY - MEDICINE [facility] [place] [facility] Apr 24, 2024 02:00 PM AMBULATORY - MEDICINE [facility] [place] [facility] Apr 29, 2024 01:00 PM AMBULATORY - MEDICINE [facility] [place] [facility] Apr 29, 2024 02:00 PM AMBULATORY - MEDICINE [facility] [place] [facility] May 13, 2024 09:30 AM AMBULATORY - MEDICINE [facility] [place] [facility] May 21, 2024 11:00 AM AMBULATORY - MEDICINE [facility] [place] [facility] May 22, 2024 01:30 PM AMBULATORY - MEDICINE [facility] [place] [facility] May 29, 2024 02:00 PM AMBULATORY - MEDICINE [facility] [place] [facility] Jun 05, 2024 10:00 AM AMBULATORY - MEDICINE [facility] [place] [facility] Jun 05, 2024 02:00 PM AMBULATORY - MEDICINE [facility] [place] [facility] Jun 05, 2024 02:45 PM AMBULATORY - NONE [facility] [place] [facility] Jun 17, 2024 08:00 AM AMBULATORY - PSYCHIATRY [facility] [place] [facility] Jun 18, 2024 08:30 AM AMBULATORY - MEDICINE [facility] [place] [facility] Jun 18, 2024 11:00 AM AMBULATORY - PSYCHIATRY [facility] [place] [facility] Jun 26, 2024 09:00 AM AMBULATORY - MEDICINE [facility] Active, Pending, and Scheduled Orders This section includes a listing of several types of active, pending, and scheduled orders, including clinic medications orders, diagnostic test orders, procedure orders and consult orders; where the start date of the order is 45 days before the date of the Encounter or 45 days after the date of theEncounter. The data comes from all [place] treatment facilities. Test Date/Time Test Type Test Details Facility Name Jan 21, 2024 12:00 AM Laboratory - Chemi stry Order OCCULT BLOOD FIT X1 SCREEN(IN-HOUSE) STOOL FECES SP [facility] Social History: Smoking Status (Most current) and Tobacco Use (All prior to encounter date) This section includes the most current, and the historical, smoking and tobacco- related health factors from the [place] facility where the Encounter took place. Current Smoking Status This section includes the most current smoking, or tobacco-related health factor, from the [place] facility where the Encounter took place. Date/Time Current Smoking Status Comment Facil ity Aug 26, 2023 10:00 AM [place]-TOBACCO FORMER USER [facility] Tobacco Use History This section includes a history of the smoking, or tobacco-related health factors, that were collected on or before the date of the Encounter. The data comes from the [place] facility where the Encounter took place. Date/Time Smoking Status/Tobacco Use Comment F acility Aug 26, 2023 10:00 AM [place]-TOBACCO QUIT 15 YRS OR MORE [facility] Apr 11, 2022 11:00 AM [place]-TOBACCO FORMER USER [facility] Apr 11, 2022 11:00 AM [place]-TOBACCO QUIT 15 YRS OR MORE [facility] Advance Directives: All historical and current Section Date Range: From patient's date of to the date document was created. This section includes ALL of a patient's completed or amended [place] Advance and Rescinded Directives. The entries below indicate that a directive exists for the patient, but an actual copy is not included with this document. The data comes from all [place] facilities. Date Advance Directives Provider Source May 16, 2011 ADVANCE DIRECTIVE DISCUSSION MANJITTON DICKENS Sep 27, 2005 ADVANCE DIRECTIVE NAHUMSHARLENE Lo AARON [facility] Sep 10, 2005 ADVANCE DIRECTIVE DISCUSSION FRANCE RODRIGEZ [facility] Aug 14, 2004 ADVANCE DIRECTIVE DISCUSSION REGULO AGUILAR Radiology Reports: +/- 30 days of the [...] the Encounter. The data comes from all [place] treatment facilities. 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 READING PHYSICIAN: Maged Pastor M.D. -[phone] 01/21/2024 12:[address] [facility] National Teleradiology Program [phone] (For Medical Practitioner Use Only) Attention Patients / Veterans: If you have questions or concerns about these test results, please contact your ordering provider or primary care team. Primary Diagnostic Code: SIGNIFICANT ABNORMALITY, ATTN NEEDED Primary Interpreting Staff: RADIOLOGY,OUTSIDE SERVICE, Staff Physician / RADIOLOGY,OUTSIDE SERVICE [place] [facility] [place] [facility] Encounter Notes: All associated encounter notes This section contains the clinical notes associated to the Encounter. Date/Time Encounter Note(s) Provider Source Jan 07, 2024 09:30 AM OCCUPATIONAL THERAPY DISCHARGE NOTE: LOCAL TITLE: OCCUPATIONAL THERAPY DISCHARGE NOTE STANDARD TITLE: OCCUPATIONAL THERAPY DISCHARGE NOTE DATE OF NOTE: JAN 07, 2024@09:30 ENTRY DATE: JAN 07, 2024@15:07:01 AUTHOR: VENITA WEST COSIGNER: LORETTA HANSON URGENCY: STATUS: COMPLETED Initial Evaluation date: November Progress Note Date: Treatment #: 5 Treatment time: 30 minutes Diagnosis: Pain in right Arm(ICD-10-CM M79.601) Provider: Giancarlo David PCP OT Treatment Precautions: Patient identified by full name and date of SUBJECTIVE: Pt reports no pain at all in shoulder. He enjoys his HEP and wants to continue to do it at home. Pain: 0/10 at rest, 0/10 with activity OBJECTIVE: THERAPEUTIC EXERCISE: *UBE 2' forward 2' backwards, 2.0 ADDED: *shoulder IR w/ blue band, 2x10 *shoulder ER w/ blue band, 2x10 MINUTES: 10 MANUAL THERAPY: *manual therapy/mobilization to lateral delt/brachialis, seated MINUTES: 10 THERAPEUTIC DYNAMIC ACTIVITIES: MINUTES: NEUROMUSCULAR EDUCATION: MINUTES: OTHER: MINUTES: MODALITIES: MINUTES: [] Contraindication screen completed prior to modality [] Skin intact pre/post SELF CARE/EDUCATION: MINUTES: Patient education was provided for all aspects of care during this clinical encounter. ASSESSMENT: Pt tolerated tx well this date. Pt reports no pain with any movement in his R shoulder. Pt denies pain with exercises. graded ER and IR and pt performed and tolerated well. Much decreased ttp and tightness noted in lateral deltoid/ brachialis musculature. he reported feeling good during and following tx. PLAN: D/C w/ HEP. pt will reach out w/ any questions/concerns. pt is in agreement w/ this POC. LTG's (6-8 weeks): 1. Pain: 2-3, at worst R shoulder-MET 3. pt will report 50% improvement in symptoms since initiating tx-MET STG's (3-6 weeks): 1. (I) w/ HEP-MET 2. Pain: <8/10 at worst in R shoulder-MET 3. improved discomfort w/ active abduction/IR of the shoulder-MET This treatment was primarily performed by TIERNEY Staley, however, I, Venita West, MS OTR/Bryce, CHT, was present during the course of this treatment in its entirety providing direct supervision for this student, I agree with treatment and plan of care as stated above. The practitioner's co-signature on this note signifies agreement with plan of care and clinical diagnosis code. /roberto/ Venita West, OTR/Bryce, NAY Occupational Therapist Signed: 01/07/2024 15:12 /roberto/ Loretta Hanson DNP, SENIOR CIVIL ENGINEER-BC, CNL Primary Care Nurse Practitioner Cosigned: 01/07/2024 15:17 Receipt Acknowledged By: 01/07/2024 16:04 /roberto/ SYDNEY PALOMARES OCCUPATIONAL THERAPY STUDENT [facility]ITA WEST [facility]
--- OUTSIDE RECORDS SUMMARY | 2024-07-17 16:41 | XMS_ITS | Encounter Summary ---
Author Name [facility] Organization [facility] Address [address] [place] [address] Care Team Providers Care Sizing Sprayer Name Role Phone LORETTA HANSON Primary Care [...] [place] H Aug 05, 2021 01 [id number] ELVIN WALSH PATIENT Selected Encounter This section includes the information on record at [place] for the Encounter. Date/Time Encounter Type Encounter Description Reason Pro vider Source IHE Encounter Template Text not used by [place] Advance Directives: All historical and current Section [...] 10, 2005 ADVANCE DIRECTIVE DISCUSSION FRANCE RODRIGEZ [facility] Aug 14, 2004 ADVANCE DIRECTIVE DISCUSSION [place]
--- OUTSIDE RECORDS SUMMARY | 2024-07-17 16:41 | XMS_ITS | Encounter Summary ---
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 Date/Time Encounter Type Encounter Description Reason Provider Source Feb 24, 2024 03:24 PM POS AIRWAY PRESSURE FILTER TELEPHONE/MEDICIN E ICD-10-CM G47.33 Obstructive sleep apnea (adult) (pediatric) BRYCE MARTI Ad[facility] Encounter Template Text not used by [place] Assessments - Encounter Diagnoses This section includes the primary and secondary diagnoses documented for the Encounter. Date/Time Primary/Secondary Diagnosis Diagnosis Name Provider Source Feb 24, 2024 03:24 PM PRIMARY Obstructive sleep apnea (adult) (pediatric) BRYCE MARTI [place] [facility] [place] [facility] Plan of Treatment: Future Appointments (+ 6 months) and Future Tests (+/- 45 days) The Plan of Treatment section includes future care activities for the patient [facility] [place] [facility] This section includes future appointments and future orders which are active, pending or scheduled. Future Appointments This section includes appointments that were scheduled to occur 6 months from the date of the Encounter, up to a maximum of 20 appointments. The data comes from all [place] treatment facilities. Appointment Date/Time Appointment Type Appointme nt Facility Name Apr 24, 2024 02:00 PM AMBULATORY - MEDICINE [facility] [place] [facility] Apr 29, 2024 01:00 PM AMBULATORY - MEDICINE [facility] [place] [facility] Apr 29, 2024 02:00 PM AMBULATORY - MEDICINE [facility] [place] [facility] May 13, 2024 09:30 AM AMBULATORY - MEDICINE [facility] [place] [facility] May 21, 2024 11:00 AM AMBULATORY - MEDICINE [facility] [place] [facility] May 22, 2024 01:30 PM AMBULATORY - MEDICINE [facility] [place] [facility] May 29, 2024 02:00 PM AMBULATORY - MEDICINE [facility] [place] [facility] Jun 05, 2024 10:00 AM AMBULATORY - MEDICINE [facility] [place] [facility] Jun 05, 2024 02:00 PM AMBULATORY - MEDICINE [facility] [place] [facility] Jun 05, 2024 02:45 PM AMBULATORY - NONE [facility] [place] [facility] Jun 17, 2024 08:00 AM AMBULATORY - PSYCHIATRY [facility] [place] [facility] Jun 18, 2024 08:30 AM AMBULATORY - MEDICINE [facility] [place] [facility] Jun 18, 2024 11:00 AM AMBULATORY - PSYCHIATRY [facility] [place] [facility] Jun 26, 2024 09:00 AM AMBULATORY - MEDICINE [facility] [place] [facility] Jul 13, 2024 09:00 AM AMBULATORY - MEDICINE [facility] [place] [facility] Jul 22, 2024 08:30 AM AMBULATORY - MEDICINE [place] [facility] [place] [facility] Active, Pending, and Scheduled Orders This section includes a listing of several types of active, pending, and scheduled orders, including clinic medications orders, diagnostic test orders, procedure orders and consult orders; where the start date of the order is 45 days before the date of the Encounter or 45 days after the date of theEncounter. The data comes from all [place] treatment facilities. Test Date/Time Test Type Test Details Facility Name Jan 21, 2024 12:00 AM Laboratory - Chemi stry Order OCCULT BLOOD FIT X1 SCREEN(IN-HOUSE) STOOL FECES SP [facility] Lab Results: +/- 30 days of the encounter This section includes the Chemistry and Hematology Lab Results on record with [place] for the patient. Radiology Reports and Pathology Reports are provided separately, in subsequent sections. Lab Results This section contains the Chemistry/Hematology Results that were resulted 30 days before or 30 daysafter the date of the Encounter. Date/Time Source Result Type Result - Unit Interpretation Reference Range Comment Feb 12, 2024 08:41 AM [facility] CBC Specimen Type: BLOOD No comment entered. Ordering Provider: MAR HANSON Report Released Date/Time: Feb 10, 2024 03:34 PM Reporting Lab: [facility] [address] [facility] [address] Performing Lab: [address] [address] WBC 7.42 10*3/uL 4.50-11.00 RBC 5.66 10*6/uL 4.23-5.66 HGB 16.0 g/dL 12.8-17 HCT 46.9 39.2-50.4 MCV 82.9 fL 82-99 MCHC 34.1 g/dL 30.8-35.1 PLT 223 10*3/uL 140-360 RDW-CV 12.7 12.0-16.0 MCH 28.3 pg 26.2-32.6 Feb 12, 2024 08:41 AM [facility] BASIC METABOLIC PANEL (non-fasting) Specimen Type: SERUM No comment entered. Ordering Provider: MAR HANSON Report Released Date/Time: Feb 10, 2024 03:34 PM Reporting Lab: [facility] [address] [facility] [address] Performing Lab: [address] [address] UREA NITROGEN 19 mg/dL 7-25 GLUCOSE 92 mg/dL 65-100 SODIUM 139 mmol/L 135-145 POTASSIUM 4.1 mmol/L 3.5-5.0 CHLORIDE 106 mmol/L 100-110 CO2 22 meq/L 20-30 CREATININE, Serum 0.99 mg/dL 0.50-1.40 eGFR(CKD-EPI 2020) >90 mL/min >60 Feb 12, 2024 08:41 AM [facility] LIVER FUNCTION Specimen Type: SERUM No comment entered. Ordering Provider: MAR HANSON Report Released Date/Time: Feb 10, 2024 03:34 PM Reporting Lab: [address] [address] Performing Lab: [address] [address] PROTEIN,TOTAL 6.8 g/dL 6.0-8.3 ALBUMIN 4.0 g/dL 3.5-5.0 ALKALINE PHOSPHATASE 68 U/L 40-150 AST 20 U/L 5-34 ALT 39 U/L BILIRUBIN, TOTAL 0.8 mg/dL 0.2-1.2 Feb 12, 2024 08:41 AM [facility] LIPID PANEL, NON FASTING Specimen Type: SERUM No comment entered. Ordering Provider: MAR HANSON Report Released Date/Time: Feb 10, 2024 03:34 PM Reporting Lab: [address] [address] Performing Lab: [address] [address] CHOLESTEROL 209 mg/dL H TRIGLYCERIDE 121 mg/dL 0-150 LDL calculated 151 mg/dL H 0-129 CHOL/HDL 6.1 HDL CHOLESTEROL 34 mg/dL L 40-60 Social History: Smoking Status (Most current) and Tobacco Use (All prior to encounter date) This section includes the most current, and the historical, smoking and tobacco- related health factors from the [place] facility where the Encounter took place. Current Smoking Status This section includes the most current smoking, or tobacco-related health factor, from the [place] facility where the Encounter took place. Date/Time Current Smoking Status Comment Terri christensen Aug 26, 2023 10:00 AM [place]-TOBACCO FORMER USER [facility] Tobacco Use History This section includes a history of the smoking, or tobacco-related health factors, that were collected on or before the date of the Encounter. The data comes from the [place] facility where the Encounter took place. Date/Time Smoking Status/Tobacco Use Comment F acility Aug 26, 2023 10:00 AM [place]-TOBACCO QUIT 15 YRS OR MORE [facility] Apr 11, 2022 11:00 AM [place]-TOBACCO FORMER USER [facility] Apr 11, 2022 11:00 AM [place]-TOBACCO QUIT 15 YRS OR MORE [facility] Advance Directives: All historical and current Section Date Range: From patient's date of to the date document was created. This section includes ALL of a patient's completed or amended [place] Advance and Rescinded Directives. The entries below indicate that a directive exists for the patient, but an actual copy is not included with this document. The data comes from all [place] facilities. Date Advance Directives Provider Source May 16, 2011 ADVANCE DIRECTIVE DISCUSSION TON SARAVIA Sep 27, 2005 ADVANCE DIRECTIVE SHARLENE SIDHU [facility] Sep 10, 2005 ADVANCE DIRECTIVE DISCUSSION FRANCE RODRIGEZ [facility] Aug 14, 2004 ADVANCE DIRECTIVE DISCUSSION REGULO AGUILAR [place] Encounter Notes: All associated encounter notes This section contains the clinical notes associated to the Encounter. Date/Time Encounter Note(s) Provider Source Feb 24, 2024 03:24 PM SLEEP MEDICINE NOT E: LOCAL TITLE: CPAP CLINIC NOTE STANDARD TITLE: SLEEP MEDICINE NOTE DATE OF NOTE: FEB 24, 2024@15:24 ENTRY DATE: FEB 24, 2024@15:24:14 AUTHOR: BRYCE MARTI EXP COSIGNER: URGENCY: STATUS: COMPLETED CPAP CLINIC NOTE Has ADDENDA Patient diagnosed with sleep apnea data reviewed for Cpap renewal. He was secured messaged to confirm whether he is using the F20 large or the Simplus mask. When he responds, supplies can be ordered from [facility]. [employer]PL[employer]ANCE PROGRAM Patient APAP compliance data reviewed via the [employer] program for the last 90 days. SETTINGS: Apap 6 - [id number] TOTAL DAYS USED 85 DAYS USED > 4hrs 85 AVG USAGE 7:20 hours AVG PRESSURE [id number] LEAK 24 AHI: 2 Central 0.5 These results indicate [facility] is compliant. 's APAP Prescription will be renewed for 1 year. If pt has any questions or concerns regarding Apap, he/she can contact Respiratory at [phone] extension [phone]. /es/ BRYCE MARTI CRT RESPIRATORY THERAPIST Signed: 02/24/2024 15:29 03/18/2024 ADDENDUM STATUS: COMPLETED says he really likes the F30i full face mask but the headset is a little small. He says he has a big head. A large Dreamwear full face mask was ordered for him to try out. /es/ BRYCE MARTI CRT RESPIRATORY THERAPIST Signed: 03/18/2024 10:19 BRYCE MARTI
--- OUTSIDE RECORDS SUMMARY | 2024-07-17 16:41 | XMS_ITS ---
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 Date/Time Encounter Type Encounter Description Reason Pro vider Source Feb 19, 2024 08:07 AM Outpatient Encounter PRIMARY CARE/MEDICINE IHE Encounter Template Text not used by [place] Plan of Treatment: Future Appointments (+ 6 [...] 20 appointments. The data comes from all [place] treatment facilities. Appointment Date/Time Appointment Type Appointme nt Facility Name Apr 24, 2024 02:00 PM AMBULATORY [facility]ICINE [facility] Apr 29, 2024 01:00 PM AMBULATORY [facility] MEDICINE [facility] Apr 29, 2024 02:00 PM AMBULATORY [facility] MEDICINE [facility] May 13, 2024 09:30 AM AMBULATORY - MEDICINE [facility] May 21, 2024 11:00 AM AMBULATORY - MEDICINE [facility] May 22, 2024 01:30 PM AMBULATORY - MEDICINE [facility] May 29, 2024 02:00 PM AMBULATORY - MEDICINE [facility] Jun 05, 2024 10:00 AM AMBULATORY - MEDICINE [facility] Jun 05, 2024 02:00 PM AMBULATORY [facility] MEDICINE [facility] Jun 05, 2024 02:45 PM AMBULATORY - NONE [facility] Jun 17, 2024 08:00 AM AMBULATORY - PSYCHIATRY [facility] Jun 18, 2024 08:30 AM AMBULATORY - MEDICINE [facility] Jun 18, 2024 11:00 AM AMBULATORY - PSYCHIATRY [facility] Jun 26, 2024 09:00 AM AMBULATORY - MEDICINE [facility] Jul 13, 2024 09:00 AM AMBULATORY - MEDICINE [facility] Jul 22, 2024 08:30 AM AMBULATORY - MEDICINE [place] [facility] Active, Pending, and Scheduled Orders This section includes a listing of several types of active, pending, and scheduled orders, including clinic medications orders, diagnostic test orders, procedure orders and consult orders; where the start date of the order is 45 days before the date of the Encounter or 45 days after the date of theEncounter. The data comes from all [place] treatment [facility]. Test Date/Time Test Type Test Details Facility Name Jan 21, 2024 12:00 AM Laboratory - Chemi stry Order OCCULT BLOOD FIT X1 SCREEN(IN-HOUSE) STOOL FECES SP [facility] Lab Results: +/- 30 days of the encounter This section includes the Chemistry and Hematology Lab Results on record with [place] for the patient. Radiology Reports and Pathology Reports are provided separately, in subsequent sections. Lab Results This section contains the Chemistry/Hematology Results that were resulted 30 days before or 30 daysafter the date of the Encounter. Date/Time Source Result Type Result - Unit Interpretation Reference Range Comment Feb 12, 2024 08:41 AM [facility] CBC Specimen Type: BLOOD No comment entered. Ordering Provider: MAR HANSON Report Released Date/Time: Feb 10, 2024 03:34 PM Reporting Lab: [address] [address] Performing Lab: [address] [address] WBC 7.42 10*3/uL 4.50-11.00 RBC 5.66 10*6/uL 4.23-5.66 HGB 16.0 g/dL 12.8-17 HCT 46.9 39.2-50.4 MCV 82.9 fL 82-99 MCHC 34.1 g/dL 30.8-35.1 PLT 223 10*3/uL 140-360 RDW-CV 12.7 12.0-16.0 MCH 28.3 pg 26.2-32.6 Feb 12, 2024 08:41 AM [facility] LIPID PANEL, NON FASTING Specimen Type: SERUM No comment entered. Ordering Provider: MAR HANSON Report Released Date/Time: Feb 10, 2024 03:34 PM Reporting Lab: [address] [address] Performing Lab: [address] [address] CHOLESTEROL 209 mg/dL H TRIGLYCERIDE 121 mg/dL 0-150 LDL calculated 151 mg/dL H 0-129 CHOL/HDL 6.1 HDL CHOLESTEROL 34 mg/dL L 40-60 Feb 12, 2024 08:41 AM [facility] BASIC METABOLIC PANEL (non-fasting) Specimen Type: SERUM No comment entered. Ordering Provider: MAR HANSON Report Released Date/Time: Feb 10, 2024 03:34 PM Reporting Lab: [facility] [address] [facility] [facility] [address] Performing Lab: [address] [address] UREA NITROGEN 19 mg/dL 7-25 GLUCOSE 92 mg/dL 65-100 SODIUM 139 mmol/L 135-145 POTASSIUM 4.1 mmol/L 3.5-5.0 CHLORIDE 106 mmol/L 100-110 CO2 22 meq/L 20-30 CREATININE, Serum 0.99 mg/dL 0.50-1.40 eGFR(CKD-EPI 2020) >90 mL/min >60 Feb 12, 2024 08:41 AM [facility] LIVER FUNCTION Specimen Type: SERUM No comment entered. Ordering Provider: MAR HANSON Report Released Date/Time: Feb 10, 2024 03:34 PM Reporting Lab: [address] [address] Performing Lab: [address] [address] PROTEIN,TOTAL 6.8 g/dL 6.0-8.3 ALBUMIN 4.0 g/dL 3.5-5.0 ALKALINE PHOSPHATASE 68 U/L 40-150 AST 20 U/L 5-34 ALT 39 U/L BILIRUBIN, TOTAL 0.8 mg/dL 0.2-1.2 Social History: Smoking Status (Most current) and Tobacco Use (All prior to encounter date) This section includes the most current, and the historical, smoking and tobacco- related health factors from the [place] facility where the Encounter took place. Current Smoking Status This section includes the most current smoking, or tobacco-related health factor, from the [place] facility where the Encounter took place. Date/Time Current Smoking Status Comment Terri christensen Aug 26, 2023 10:00 AM VA-TOBACCO FORMER USER [facility] Tobacco Use History This section includes a history of the smoking, or tobacco-related health factors, that were collected on or before the date of the Encounter. The data comes from the [place] facility where the Encounter took place. Date/Time Smoking Status/Tobacco Use Comment F acility Aug 26, 2023 10:00 AM VA-TOBACCO QUIT 15 YRS OR MORE [facility] Apr 11, 2022 11:00 AM VA-TOBACCO FORMER USER [facility] Apr 11, 2022 11:00 AM [place]-TOBACCO QUIT 15 YRS OR MORE [facility] Advance Directives: All historical and current Section Date Range: From patient's date of to the date document was created. This section includes ALL of a patient's completed or amended [place] Advance and Rescinded Directives. The entries below indicate that a directive exists for the patient, but an actual copy is not included with this document. The data comes from all [place] facilities. Date Advance Directives Provider Source May 16, 2011 ADVANCE DIRECTIVE DISCUSSION TON SARAVIA Sep 27, 2005 ADVANCE DIRECTIVE SHARLENE SIDHU [facility] Sep 10, 2005 ADVANCE DIRECTIVE DISCUSSION [...] the Encounter. The data comes from all [place] treatment facilities. Date/Time Radiology Report Provider Source Jan 21, 2024 11:02 AM MANDIBLE LESS THAN 4 VIEWS: ELVIN REYNA [id number] -[id number] M Exm Date: JAN 21, 2024@11:02 Req Phys: GANGA DAVID Loc: CWM/NO/SICK CALL PA (Req'g Loc Img Loc: [facility]BUILDING 1 Service: Unknown [facility] , (Case 316 COMPLETE) MANDIBLE LESS THAN 4 VIEWS (RAD Detailed) CPT:11439 Reason for Study: SWELLING AND PAIN Clinical History: R/O MASS Report Status: Verified Date Reported: JAN 21, 2024 Date Verified: JAN 21, 2024 Health Support Specialist E-Sig: Report: PROCEDURE: Stat mandible 3 images [...] Recommend CT/MRI. READING PHYSICIAN: Maged Pastor M.D. -[id number] 01/21/2024 12:15 EDT [facility] National Teleradiology Program [phone] (For Medical Practitioner Use Only) Attention Patients / Veterans: If you have questions or concerns about these test results, please contact your ordering provider or primary care team. Primary Diagnostic Code: SIGNIFICANT ABNORMALITY, ATTN NEEDED Primary Interpreting Staff: RADIOLOGY,OUTSIDE SERVICE, Staff Physician / RADIOLOGY,OUTSIDE SERVICE [place] [facility] Encounter Notes: All associated encounter notes This section contains the clinical notes associated to the Encounter. Date/Time Encounter Note(s) Provider Source Feb 19, 2024 08:07 AM ADMINISTRATIVE NOT E: LOCAL TITLE: ADMINISTRATIVE NOTE STANDARD TITLE: ADMINISTRATIVE NOTE DATE OF NOTE: FEB 19, 2024@08:07 ENTRY DATE: FEB 19, 2024@08:07:28 AUTHOR: INES GOTTI COSIGNER: URGENCY: STATUS: COMPLETED states he has TMJ, states that his dentist figured it out. /roberto/ BRUCE STOLL ADVANCED PLODDER OPERATOR Signed: 02/19/2024 08:09 Receipt Acknowledged By: 02/20/2024 07:51 /es/ Loretta Hanson DNP, SYRUPER-BC, CNL Primary Care Nurse Practitioner [facility]
--- OUTSIDE RECORDS SUMMARY | 2024-07-17 16:41 | XMS_ITS | Encounter Summary ---
Author Name [facility] [place] [facility] [place] [facility] [place] Address [address] [place] [address] Care Team Providers Care Pipe Racker Name Role Phone LORETTA HANSON Primary Care [...] MASS HEALT H Aug 05, 2021 01 [phone] [id number] ELVIN WALSH PATIENT Selected Encounter This section includes the information on record at [place] for the Encounter. Date/Time Encounter Type Encounter Description Reason Provider Source Jan 21, 2024 10:30 AM OFF/OP EST DECEMBER X REQ PHY/QHP PRIMARY CARE/MEDICINE ICD-10-CM Z71.89 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ed counseling INES CHAMORRO IHZahra Encounter Template Text not used by [facility] Assessments - Encounter Diagnoses This section includes the primary and secondary diagnoses documented for the Encounter. Date/Time Primary/Secondary Diagnosis Diagnosis Name Provider Source Jan 21, 2024 10:58 AM PRIMARY 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ed counseling INES CHAMORRO [facility] [place] [facility] Plan of Treatment: Future Appointments (+ 6 months) and Future Tests (+/- 45 days) The Plan of Treatment section includes future care activities for the [facility] [place] [facility] This section includes future appointments and future orders which are active, pending or scheduled. Future Appointments This section includes appointments that were scheduled to occur 6 months from the date of the Encounter, up to a maximum of 20 appointments. The data comes from all [place] treatment facilities. Appointment Date/Time Appointment Type Appointme nt Facility Name Apr 24, 2024 02:00 PM AMBULATORY - MEDICINE [facility] [place] [facility] Apr 29, 2024 01:00 PM AMBULATORY - MEDICINE [facility] [place] [facility] Apr 29, 2024 02:00 PM AMBULATORY - MEDICINE [facility] [place] [facility] May 13, 2024 09:30 AM AMBULATORY - MEDICINE [facility] [place] [facility] May 21, 2024 11:00 AM AMBULATORY - MEDICINE [facility] [place] [facility] May 22, 2024 01:30 PM AMBULATORY - MEDICINE [facility] [place] [facility] May 29, 2024 02:00 PM AMBULATORY - MEDICINE [facility] [place] [facility] Jun 05, 2024 10:00 AM AMBULATORY - MEDICINE [facility] [place] [facility] Jun 05, 2024 02:00 PM AMBULATORY - MEDICINE [facility] [place] [facility] Jun 05, 2024 02:45 PM AMBULATORY - NONE [facility] [place] [facility] Jun 17, 2024 08:00 AM AMBULATORY - PSYCHIATRY [facility] [place] [facility] Jun 18, 2024 08:30 AM AMBULATORY - MEDICINE [facility] [place] [facility] Jun 18, 2024 11:00 AM AMBULATORY - PSYCHIATRY [facility] [place] [facility] Jun 26, 2024 09:00 AM AMBULATORY - MEDICINE [facility] [place] [facility] Jul 13, 2024 09:00 AM AMBULATORY - MEDICINE [facility] [place] [facility] Jul 22, 2024 08:30 AM AMBULATORY - MEDICINE [facility] [place] [facility] Active, Pending, and Scheduled Orders This section includes a listing of several types of active, pending, and scheduled orders, including clinic medications orders, diagnostic test orders, procedure orders and consult orders; where the start date of the order is 45 days before the date of the Encounter or 45 days after the date of theEncounter. The data comes from all [place] treatment facilities. Test Date/Time Test Type Test Details Facility Name Jan 21, 2024 12:00 AM Laboratory - Chemi stry Order OCCULT BLOOD FIT X1 SCREEN(IN-HOUSE) STOOL FECES SP [facility] Lab Results: +/- 30 days of the encounter This section includes the Chemistry and Hematology Lab Results on record with [place] for the patient. Radiology Reports and Pathology Reports are provided separately, in subsequent sections. Lab Results This section contains the Chemistry/Hematology Results that were resulted 30 days before or 30 daysafter the date of the Encounter. Date/Time Source Result Type Result - Unit Interpretation Reference Range Comment Feb 12, 2024 08:41 AM [facility] CBC Specimen Type: BLOOD No comment entered. Ordering Provider: MAR HANSON Report Released Date/Time: Feb 10, 2024 03:34 PM Reporting Lab: [facility] [address] [facility] [address] Performing Lab: [address] [address] WBC 7.42 10*3/uL 4.50-11.00 RBC 5.66 10*6/uL 4.23-5.66 HGB 16.0 g/dL 12.8-17 HCT 46.9 39.2-50.4 MCV 82.9 fL 82-99 MCHC 34.1 g/dL 30.8-35.1 PLT 223 10*3/uL 140-360 RDW-CV 12.7 12.0-16.0 MCH 28.3 pg 26.2-32.6 Feb 12, 2024 08:41 AM [facility] BASIC METABOLIC PANEL (non-fasting) Specimen Type: SERUM No comment entered. Ordering Provider: MAR HANSON Report Released Date/Time: Feb 10, 2024 03:34 PM Reporting Lab: [facility] [address] [address] Performing Lab: [facility] [address] [facility] [address] UREA NITROGEN 19 mg/dL 7-25 GLUCOSE 92 mg/dL 65-100 SODIUM 139 mmol/L 135-145 POTASSIUM 4.1 mmol/L 3.5-5.0 CHLORIDE 106 mmol/L 100-110 CO2 22 meq/L 20-30 CREATININE, Serum 0.99 mg/dL 0.50-1.40 eGFR(CKD-EPI 2020) >90 mL/min >60 Feb 12, 2024 08:41 AM [facility] LIPID PANEL, NON FASTING Specimen Type: SERUM No comment entered. Ordering Provider: MAR HANSON Report Released Date/Time: Feb 10, 2024 03:34 PM Reporting Lab: [facility] [address] [address] Performing Lab: [address] [address] CHOLESTEROL 209 mg/dL H TRIGLYCERIDE 121 mg/dL 0-150 LDL calculated 151 mg/dL H 0-129 CHOL/HDL 6.1 HDL CHOLESTEROL 34 mg/dL L 40-60 Feb 12, 2024 08:41 AM [facility] LIVER FUNCTION Specimen Type: SERUM No comment entered. Ordering Provider: MAR HANSON Report Released Date/Time: Feb 10, 2024 03:34 PM Reporting Lab: [facility] [address] [facility] [address] Performing Lab: [address] [address] PROTEIN,TOTAL 6.8 g/dL 6.0-8.3 ALBUMIN 4.0 g/dL 3.5-5.0 ALKALINE PHOSPHATASE 68 U/L 40-150 AST 20 U/L 5-34 ALT 39 U/L BILIRUBIN, TOTAL 0.8 mg/dL 0.2-1.2 Vital Signs: All taken on the encounter date This section contains inpatient and outpatient Vital Signs collected on the date of the Encounter. Date/Time Temperature Pulse Blood Pressure Respiratory Rate SP02 Pain Height Weight Body Mass Index Source Jan 21, 2024 10:50 AM 98 102 126/80 16 [facility] Social History: Smoking Status (Most current) and Tobacco Use (All prior to encounter date) This section includes the most current, and the historical, smoking and tobacco- related health factors from the [place] facility where the Encounter took place. Current Smoking Status This section includes the most current smoking, or tobacco-related health factor, from the [place] facility where the Encounter took place. Date/Time Current Smoking Status Comment Facil ity Aug 26, 2023 10:00 AM [place]-TOBACCO FORMER USER [facility] Tobacco Use History This section includes a history of the smoking, or tobacco-related health factors, that were collected on or before the date of the Encounter. The data comes from the [place] facility where the Encounter took place. Date/Time Smoking Status/Tobacco Use Comment F acility Aug 26, 2023 10:00 AM IN-TOBACCO QUIT 15 YRS OR MORE [facility] Apr 11, 2022 11:00 AM [facility] Apr 11, 2022 11:00 AM IN-TOBACCO QUIT 15 YRS OR MORE [facility] Advance Directives: All historical and current Section Date Range: From patient's date of to the date document was created. This section includes ALL of a patient's completed or amended [place] Advance and Rescinded Directives. The entries below indicate that a directive exists for the patient, but an actual copy is not included with this document. The data comes from all [place] facilities. Date Advance Directives Provider Source May 16, 2011 ADVANCE DIRECTIVE DISCUSSION TON SARAVIA Sep 27, 2005 ADVANCE DIRECTIVE SHARLENE SIDHU [facility] Sep 10, 2005 ADVANCE DIRECTIVE DISCUSSION FRANCE RODRIGEZ [facility] Aug 14, 2004 ADVANCE DIRECTIVE DISCUSSION [...] the Encounter. The data comes from all [place] treatment facilities. Date/Time Radiology Report Provider Source Jan 21, 2024 11:02 AM MANDIBLE LESS THAN 4 VIEWS: ELVIN REYNA Zahra [id number] -1975 M Exm Date: JAN 21, 2024@11:02 Req Phys: GANGA DAVID Loc: CWM/NO/SICK CALL PA (Req'g Loc Img Loc: [facility]/BUILDING 1 Service: Unknown [place] [facility] [place] [facility] , (Case 316 COMPLETE) MANDIBLE LESS THAN 4 VIEWS (RAD Detailed) CPT:52906 Reason for Study: SWELLING AND PAIN Clinical History: R/O MASS Report Status: Verified Date Reported: JAN 21, 2024 Date Verified: JAN 21, 2024 Tax Appraiser E-Sig: Report: PROCEDURE: Stat mandible 3 images [...] Recommend CT/MRI. READING PHYSICIAN: Maged Pastor M.D. -[phone] 01/21/2024 12:15 EDT [facility] Vision[facility] [phone] (For Medical Practitioner Use Only) Attention Patients / Veterans: If you have questions or concerns about these test results, please contact your ordering provider or primary care team. Primary Diagnostic Code: SIGNIFICANT ABNORMALITY, ATTN NEEDED Primary Interpreting Staff: RADIOLOGY,OUTSIDE SERVICE, Staff Physician / RADIOLOGY,OUTSIDE SERVICE IN [facility] Encounter Notes: All associated encounter notes This section contains the clinical notes associated to the Encounter. Date/Time Encounter Note(s) Provider Source Jan 21, 2024 10:34 AM PRIMARY CARE OUTPATIENT NOTE: LOCAL TITLE: AMBULATORY/OUTPATIENT CARE NOTE STANDARD TITLE: PRIMARY CARE OUTPATIENT NOTE DATE OF NOTE: JAN 21, 2024@10:34 ENTRY DATE: JAN 21, 2024@10:34:21 AUTHOR: INGRID CHAMORRO COSIGNER: URGENCY: STATUS: COMPLETED F: Walk In D/A: Vet presents to primary care for left jaw pain for the past several days. Vet seen in [place] 12/31 for left ear issues, prescribed Cetirizine and nasal spray. Vet reports symptoms resolved but he later developed jaw pain, posterior on left side extending to ear, pain is 3/10- 5/10 described as a burning ache that pulses intermittently. Vet denies pain radiating. Vet also states brushing teeth, chewing or drinking does not affect pain level. Denies fever or chills. Denies throat pain. Vet reports feeling heat to swollen area. On exam ears bilateral clear of cerumen TMs visible. Left side of face swollen compared to right. Left side of upper/lower Jaw to ear tender on palpation, somewhat solid under swollen area. No breaks in skin. Temp of left jaw consistent with surrounding skin. Vet afebrile today. Conferred with [place] provider who orders imaging, Vet will return after completed. R: Vet to see [place] provider today Reminders completed today include: Advance Directive Screen MH AD: Patient does not have a completed advance directive on file at any facility, [place] or outside. S/he is not interested in completing one at this time. The patient received education about Advance Directives and written notification of his/her rights. Depression Screening: Perform PHQ-2 A PHQ-2 screen was performed. The score was 0 which is a negative screen for depression. Over the past two weeks, how often have you been bothered by the following problems? 1. Little interest or pleasure in doing things Not at all 2. Feeling down, depressed, or hopeless Not at all RHS Screen: RHS Screen Session Format: Face to Face Environmental Check Upon inquiry, the individual reports that the environment is safe to proceed. Informed Consent to Screen and Document The individual consents to proceed with screening. The individual consents to documentation of responses. PRIMARY SCREEN: In the past 12 months, how often did a current or former intimate partner (e.g., boyfriend, girlfriend, , , sexual partner): 1. Scream or curse at you Never 2. Insult or talk down to you Never 3. Threaten you with harm Never 4. Physically hurt you Never 5. Force or pressure you to have sexual contact against your will, or when you were unable to say no Never ?? The HITS tool (items 1-4 above) is [place] copyright protected by Yariel Benz MD, and the user has full rights to use it throughout the [place] system. PRIMARY SCREEN RESULT: The Primary Screen is NEGATIVE. The individual answered never to all forms of IPV above (i.e., answered never to all 5 items) The individual accepts education and/or resources: No EDUCATION: Other: Not interested at this time Avg Risk Colorectal Cancer Screen: AVERAGE RISK colorectal cancer screening is due based on information available to this clinical reminder FOBT/FIT (Fecal Immunochemical Testing) has been ordered. See order tab for details. Hepatitis B Immunization: The patient declines to receive the recommended dose of Hepatitis B vaccine. Immunization: HEP B, UNSPECIFIED FORMULATION Refusal Reason: PATIENT DECISION Patient refuses all immunization(s) in the HepB group Date Documented: 01/21/24 10:39 COVID-19 Immunization: Refused Moderna Monovalent COVID-19 vaccine Immunization: COVID-19 (MODERNA), MRNA, LNP-S, PF, 50 MCG/0.5 ML (AGES 12+ YEARS) Refusal Reason: PATIENT DECISION Patient refuses all immunization(s) in the COVID-19 group Date Documented: 01/21/24 10:39 Hepatitis A Vaccine for High Risk: Patient declines/refuses Hepatitis A immunization Immunization: HEP A, UNSPECIFIED FORMULATION Refusal Reason: PATIENT DECISION Patient refuses all immunization(s) in the HepA group Date Documented: 01/21/24 10:39 /roberto/ Ingrid ESTRADA RN CNL Primary Care RN Signed: 01/21/2024 10:58 INGRID CHAMORRO [facility]
--- OUTSIDE RECORDS SUMMARY | 2024-07-17 16:41 | XMS_ITS | Encounter Summary ---
Author Name [facility] [place] Address [address] [place] [address] Care Team Providers Care Supervisor [employer] Name Role Phone LORETTA HANSON Primary Care [...] [place] [facility] H Aug 05, 2021 01 [id number] ELVIN WALSH PATIENT Selected Encounter This section includes the information on record at [place] for the Encounter. Date/Time Encounter Type Encounter Description Reason Provider Source Jan 08, 2024 09:00 AM MTMS BY PHARM ADDL 15 [facility] - IND ICD-10-CM F41.9 Anxiety disorder, unspecified MAGGIE FRANCES ER SHWETA Torres IHZahra Encounter Template Text not used by [place] Assessments - Encounter Diagnoses This section includes the primary and secondary diagnoses documented for the Encounter. Date/Time Primary/Secondary Diagnosis Diagnosis Name Provider Source Jan 08, 2024 10:15 AM PRIMARY Anxiety disorder, unspecified MAGGIE FRANCES ER SHWETA D [facility] [place] [facility] Plan of Treatment: Future Appointments (+ 6 months) and Future Tests (+/- 45 days) The Plan of Treatment section includes future care activities for the patient from [facility] [place] [facility] This section includes future appointments and future orders which are active, pending or scheduled. Future Appointments This section includes appointments that were scheduled to occur 6 months from the date of the Encounter, up to a maximum of 20 appointments. The data comes from all [place] treatment facilities. Appointment Date/Time Appointment Type Appointme nt Facility Name Jan 21, 2024 10:30 AM AMBULATORY - MEDICINE [facility] [place] [facility] Jan 21, 2024 11:30 AM AMBULATORY - MEDICINE [facility] [place] [facility] Apr 24, 2024 02:00 PM AMBULATORY - MEDICINE [facility] [place] [facility] Apr 29, 2024 01:00 PM AMBULATORY - MEDICINE [facility] [place] [facility] Apr 29, 2024 02:00 PM AMBULATORY - MEDICINE [facility] [place] [facility] May 13, 2024 09:30 AM AMBULATORY - MEDICINE [facility] [place] [facility] May 21, 2024 11:00 AM AMBULATORY - MEDICINE [facility] [place] [facility] May 22, 2024 01:30 PM AMBULATORY - MEDICINE [facility] [place] [facility] May 29, 2024 02:00 PM AMBULATORY - MEDICINE [facility] [place] [facility] Jun 05, 2024 10:00 AM AMBULATORY - MEDICINE [facility] [place] [facility] Jun 05, 2024 02:00 PM AMBULATORY - MEDICINE [facility] [place] [facility] Jun 05, 2024 02:45 PM AMBULATORY - NONE [facility] [place] [facility] Jun 17, 2024 08:00 AM AMBULATORY - PSYCHIATRY [facility] [place] [facility] Jun 18, 2024 08:30 AM AMBULATORY - MEDICINE [facility] [place] [facility] Jun 18, 2024 11:00 AM AMBULATORY - PSYCHIATRY [facility] [place] [facility] Jun 26, 2024 09:00 AM [...] of theEncounter. The data comes from all [place] treatment facilities. Test Date/Time Test Type Test Details Facility Name Jan 21, 2024 12:00 AM Laboratory - Chemi stry Order OCCULT BLOOD FIT X1 SCREEN(IN-HOUSE) STOOL FECES SP [facility] Social History: Smoking Status (Most current) and Tobacco Use (All prior to encounter date) This section includes the most current, and the historical, smoking and tobacco- related health factors from the [place] facility where the Encounter took place. Current Smoking Status This section includes the most current smoking, or tobacco-related health factor, from the [place] facility where the Encounter took place. Date/Time Current Smoking Status Comment Facil ity Aug 26, 2023 10:00 AM [place]-TOBACCO FORMER USER [facility] Tobacco Use History This section includes a history of the smoking, or tobacco-related health factors, that were collected on or before the date of the Encounter. The data comes from the [place] facility where the Encounter took place. Date/Time Smoking Status/Tobacco Use Comment F acility Aug 26, 2023 10:00 AM [place]-TOBACCO QUIT 15 YRS OR MORE [facility] Apr 11, 2022 11:00 AM [place]-TOBACCO FORMER USER [facility] Apr 11, 2022 11:00 AM [place]-TOBACCO QUIT 15 YRS OR MORE [facility] Advance Directives: All historical and current Section Date Range: From patient's date of to the date document was created. This section includes ALL of a patient's completed or amended [place] Advance and Rescinded Directives. The entries below indicate that a directive exists for the patient, but an actual copy is not included with this document. The data comes from all [place] facilities. Date Advance Directives Provider Source May 16, 2011 ADVANCE DIRECTIVE DISCUSSION [facility] [place] Sep 27, 2005 ADVANCE DIRECTIVE SHARLENE SIDHU [facility] Sep 10, 2005 ADVANCE DIRECTIVE DISCUSSION FRANCE RODRIGEZ [facility] Aug 14, 2004 ADVANCE DIRECTIVE [...] the Encounter. The data comes from all [place] treatment facilities. Date/Time Radiology Report Provider Source Jan 21, 2024 11:02 AM MANDIBLE LESS THAN 4 VIEWS: ELVIN REYNA [id number] -[id number] M Exm Date: JAN 21, 2024@11:02 Req Phys: GANGA DAVID Loc: CWM/NO/SICK CALL PA (Req'g Loc Img Loc: [facility]BUILDING 1 Service: Unknown [place] [facility] [place] [facility] , (Case 316 COMPLETE) MANDIBLE LESS THAN 4 VIEWS (RAD Detailed) CPT:43055 Reason for Study: SWELLING AND PAIN Clinical History: R/O MASS Report Status: Verified Date Reported: JAN 21, 2024 Date Verified: JAN 21, 2024 Councilperson E-Sig: Report: PROCEDURE: Stat mandible 3 images [...] Recommend CT/MRI. READING PHYSICIAN: Maged Pastor M.D. -[id number] 01/21/2024 12:15 EDT [facility] National Teleradiology Program [phone] (For Medical Practitioner Use Only) Attention Patients / Veterans: If you have questions or concerns about these test results, please contact your ordering provider or primary care team. Primary Diagnostic Code: SIGNIFICANT ABNORMALITY, ATTN NEEDED Primary Interpreting Staff: RADIOLOGY,OUTSIDE SERVICE, Staff Physician / RADIOLOGY,OUTSIDE SERVICE [place] [facility] [place] [facility] Encounter Notes: All associated encounter notes This section contains the clinical notes associated to the Encounter. Date/Time Encounter Note(s) Provider Source Jan 08, 2024 09:09 AM PHARMACY MEDICATION MGT NOTE: LOCAL TITLE: CLINICAL PHARMACIST F/U NOTE STANDARD TITLE: PHARMACY MEDICATION MGT NOTE DATE OF NOTE: JAN 08, 2024@09:09 ENTRY DATE: JAN 08, 2024@09:09:07 AUTHOR: HOSSEIN FRANCES COSIGNER: URGENCY: STATUS: COMPLETED Program: Clinical Pharmacy Provider/Medication Management Speciality: Mental Health ATTENDED BY: [X] Patient [ ] Spouse/Caregiver LENGTH OF SESSION: 30+minutes -=-=-=-=-=-=-=-=-=-=-=-=-=-=- =-=-=-=-=-==-=-=-=-=-=-=-=-=- =-=-=-=-=-=-=-=-=-=-=- Name: ELVIN REYNA JR : Jul ID: [id number] WHITE MALE -=-=-=-=-=-=-=-=-=-=-=-=-=-=- =-=-=-=-=-==-=-=-=-=-=-=-=-=- =-=-=-=-=-=Subjective- was last seen on [id number] with the following pharmacotherapeutic plan: [ ] No changes [X] Discontinue: buspirone [ ] Initiate: [ ] Change the following: Treating Dx(s): Anxiety INTERIM HISTORY noted that the purpose of this visit was to review the results of the PHASER test per his request. pt verbalized understanding following discussing the results of the test in relation to past experiences w/ mediations. pt otherwise reports he has been doing well and shared w/ junior technical writer his progress from the last several months and engaged in thoughtful conversation. disclosed no other concerns or issues at this time. -=-=-=-=-=-=-=-=-=-=-=-=-=-=- =-=-=-=-=-==-=-=-=-=-=-=-=-=- =-=-=-=-=-=-Objective- Mental Status Exam Appearance: [...] Overweight 7. GERD - Gastro-Esophageal Reflux Disease [facility] [id number]) 8. Anxiety ([facility] [id number]) 9. Hyperlipidemia ([facility] [id number]) 10. Fatty liver 11. Family history of diabetes mellitus ALLERGIES: Patient has answered NKA Active Outpatient Medications (including Supplies): Active Outpatient Medications Status 1) AZELASTINE 137MCG/SPRAY 200D NASAL INHL SPRAY 1 SPRAY ACTIVE INTO EACH NOSTRIL ONCE DAILY FOR SEASONAL RUNNY NOSE 2) CETIRIZINE HCL 10MG TAB TAKE ONE TABLET BY MOUTH ONCE ACTIVE DAILY FOR ALLERGIES 3) CHOLECALCIF 50MCG (D3-2,000UNIT) TAB TAKE ONE TABLET ACTIVE BY MOUTH ONCE DAILY FOR VITAMIN SUPPLEMENTATION 4) OMEPRAZOLE 20MG EC CAP TAKE ONE CAPSULE BY MOUTH ONCE ACTIVE DAILY Active Non-VA Medications Status 1) Non-VA PROBIOTIC (CULTURELLE DIGESTIVE DAILY) CAP/TAB ACTIVE BY MOUTH 5 Total Medications Past psychiatric medications include the following: [X] Per CPRS: - atomoxetine (2022) - bupropion (; ) - buspirone (2009; 2023) - escitalopram (2023) - hydroxyzine (2004) - paroxetine () - risperidone () - sertraline () - trazodone ([id number]) [X] Per Patient: - SI w/ bupropion Vitals: Ht: 66 in [167.6 cm] (08/26/2023 10:08) Wt: 238 lb [107.95 kg] (01/01/2024 11:00) BMI: 38.5 BP: 134/88 (01/01/2024 11:00) HR: 88 (01/01/2024 11:00) Labs: CHEM 7 TREND LAB CUMULATIVE SELECTED [...] following review of all active psychotropic and EDUCATION PROGRAM SPECIALIST-active agents is to ensure pharmacotherapy is evaluated for safety and efficacy as they relate to behaviorial and physiological changes and outcomes Anxiety * pt is actively engaged in psychotherapy and is not interested, or requires, medications at this time PLAN 1. Pharmacotherapy [X] No changes [ ] Discontinue: [ ] Initiate: [ ] Change the [...] understood. The following counseling was specifically provided: [X] Lab tests reviewed with patient [X] Instruction for management/treatment and/or follow-up [X] Importance of compliance with chosen treatment options [X] Risk Factor Reduction [ ] Other: RTC Interval: n/a Next Apt: n/a was provided junior technical writer's contact information and instructed to contact junior technical writer as needed for any changes to scheduling or concerns otherwise. is aware of actions to take if they feel unsafe, including calling the [employer] Crisis Line (#[phone]); calling 911; or going to the nearest urgent care or emergency room. The is also aware of how to contact the clinic should the require additional services prior to the next appointment. Time spent on chart review, session, and documentation: 45minute /roberto/ Hossein Frances PharmD Clinical Pharmacist Practitioner Signed: 01/08/2024 10:22 HOSSEIN FRANCES [place] [facility]
--- OUTSIDE RECORDS SUMMARY | 2024-07-17 16:41 | XMS_ITS | Encounter Summary ---
Author Name [facility] [place] Address [address], [place] [address] Care Team Providers Care Flat Surfacer Jewel Name Role Phone LORETTA HANSON Primary Care Provider DREAD Gilmore Primary Care Provider Unavailkrsitina pennington Insurance Providers: All historical and current [...] Gonzalez's Name Patient's Relationship to Policy [facility] Aug 05, 2021 01 [id number] ELVIN WALSH PATIENT Selected Encounter This section includes the information on record at [place] for the Encounter. Date/Time Encounter Type Encounter Description Reason Pro vider Source Jan 21, 2024 10:54 AM Outpatient Encounter PODIATRY IHE Encounter Template [...] The data comes from all [place] treatment [facility]. Appointment Date/Time Appointment Type Appointme nt Facility Name Apr 24, 2024 02:00 PM AMBULATORY - MEDICINE [facility] [place] [facility] Apr 29, 2024 01:00 PM AMBULATORY - MEDICINE [facility] [place] [facility] Apr 29, 2024 02:00 PM AMBULATORY - MEDICINE [facility] [place] [facility] May 13, 2024 09:30 AM AMBULATORY - MEDICINE [facility] [place] [facility] May 21, 2024 11:00 AM AMBULATORY - MEDICINE [facility] [place] [facility] May 22, 2024 01:30 PM AMBULATORY - MEDICINE [facility] [place] [facility] May 29, 2024 02:00 PM AMBULATORY - MEDICINE [facility] [place] [facility] Jun 05, 2024 10:00 AM AMBULATORY - MEDICINE [facility] [place] [facility] Jun 05, 2024 02:00 PM AMBULATORY - MEDICINE [facility] [place] [facility] Jun 05, 2024 02:45 PM AMBULATORY - NONE [facility] [place] [facility] Jun 17, 2024 08:00 AM AMBULATORY - PSYCHIATRY [facility] [place] [facility] Jun 18, 2024 08:30 AM AMBULATORY - MEDICINE [facility] [place] [facility] Jun 18, 2024 11:00 AM AMBULATORY - PSYCHIATRY [facility] [place] [facility] Jun 26, 2024 09:00 AM AMBULATORY - MEDICINE [facility] [place] [facility] Jul 13, 2024 09:00 AM AMBULATORY - MEDICINE [facility] [place] [facility] Jul 22, 2024 08:30 AM AMBULATORY - MEDICINE [facility] [place] [facility] Active, Pending, and Scheduled Orders This section includes a listing of several types of active, pending, and scheduled orders, including clinic medications orders, diagnostic test orders, procedure orders and consult orders; where the start date of the order is 45 days before the date of the Encounter or 45 days after the date of theEncounter. The data comes from all [place] treatment [facility]. Test Date/Time Test Type Test Details Facility Name Jan 21, 2024 12:00 AM Laboratory - Chemi stry Order OCCULT BLOOD FIT X1 SCREEN(IN-HOUSE) STOOL FECES SP [facility] Lab Results: +/- 30 [...] Range Comment Feb 12, 2024 08:41 AM [facility] CBC Specimen Type: BLOOD No comment entered. Ordering Provider: MAR HANSON Report Released Date/Time: Feb 10, 2024 03:34 PM Reporting Lab: [address] [address] Performing Lab: [address] [address] WBC 7.42 10*3/uL 4.50-11.00 RBC 5.66 10*6/uL 4.23-5.66 HGB 16.0 g/dL 12.8-17 HCT 46.9 39.2-50.4 MCV 82.9 fL 82-99 MCHC 34.1 g/dL 30.8-35.1 PLT 223 10*3/uL 140-360 RDW-CV 12.7 12.0-16.0 MCH 28.3 pg 26.2-32.6 Feb 12, 2024 08:41 AM [facility] BASIC METABOLIC PANEL (non-fasting) Specimen Type: SERUM No comment entered. Ordering Provider: MAR HANSON Report Released Date/Time: Feb 10, 2024 03:34 PM Reporting Lab: [address] [address] Performing Lab: [address] [address] UREA NITROGEN 19 mg/dL 7-25 GLUCOSE 92 mg/dL 65-100 SODIUM 139 mmol/L 135-145 POTASSIUM 4.1 mmol/L 3.5-5.0 CHLORIDE 106 mmol/L 100-110 CO2 22 meq/L 20-30 CREATININE, Serum 0.99 mg/dL 0.50-1.40 eGFR(CKD-EPI 2020) >90 mL/min >60 Feb 12, 2024 08:41 AM [facility] LIVER FUNCTION Specimen Type: SERUM No comment entered. Ordering Provider: MAR HANSON Report Released Date/Time: Feb 10, 2024 03:34 PM Reporting Lab: [address] [address] Performing Lab: [address] [address] PROTEIN,TOTAL 6.8 g/dL 6.0-8.3 ALBUMIN 4.0 g/dL 3.5-5.0 ALKALINE PHOSPHATASE 68 U/L 40-150 AST 20 U/L 5-34 ALT 39 U/L BILIRUBIN, TOTAL 0.8 mg/dL 0.2-1.2 Feb 12, 2024 08:41 AM [facility] LIPID PANEL, NON FASTING Specimen Type: SERUM No comment entered. Ordering Provider: MAR HANSON Report Released Date/Time: Feb 10, 2024 03:34 PM Reporting Lab: [address] [address] Performing Lab: [address] [address] CHOLESTEROL 209 mg/dL H TRIGLYCERIDE 121 mg/dL 0-150 LDL calculated 151 mg/dL H 0-129 CHOL/HDL 6.1 HDL CHOLESTEROL 34 mg/dL L 40-60 Vital Signs: All taken on the encounter date This section contains inpatient and outpatient Vital Signs collected on the date of the Encounter. Date/Time Temperature Pulse Blood Pressure Respiratory Rate SP02 Pain Height Weight Body Mass Index Source Jan 21, 2024 10:50 AM 98 102 126/80 16 3 [facility] Social History: Smoking Status (Most [...] place. Date/Time Current Smoking Status Comment Terri bojorquezy Aug 26, 2023 10:00 AM [place]-TOBACCO FORMER USER [facility] Tobacco Use History This section includes a history of the smoking, or tobacco-related health factors, that were collected on or before the date of the Encounter. The data comes from the [place] facility where the Encounter took place. Date/Time Smoking Status/Tobacco Use Comment F acility Aug 26, 2023 10:00 AM [place]-TOBACCO QUIT 15 YRS OR MORE [facility] Apr 11, 2022 11:00 AM [place]-TOBACCO FORMER USER [facility] Apr 11, 2022 11:00 AM [place]-TOBACCO QUIT 15 YRS OR MORE [facility] Advance Directives: All historical and [...] Sep 27, 2005 ADVANCE DIRECTIVE SHARLENE SIDHU [facility] Sep 10, 2005 ADVANCE DIRECTIVE DISCUSSION FRANCE RODRIGEZ [facility] Aug 14, 2004 ADVANCE DIRECTIVE DISCUSSION [...] the Encounter. The data comes from all [place] treatment facilities. Date/Time Radiology Report Provider Source Jan 21, 2024 11:02 AM MANDIBLE LESS THAN 4 VIEWS: ELVIN REYNA [id number] -1975 M Exm Date: JAN 21, 2024@11:02 Req Phys: FRANKIEGANGA GROSS Pat Loc: CWM/NO/SICK CALL PA (Req'g Loc Img Loc: [facility]/BUILDING 1 Service: Unknown [facility] , (Case 316 COMPLETE) MANDIBLE LESS THAN 4 VIEWS (RAD Detailed) CPT:75503 Reason for Study: SWELLING AND PAIN Clinical History: R/O MASS Report Status: Verified Date Reported: JAN 21, 2024 Date Verified: JAN 21, 2024 Deputy Coroner Investigator E-Sig: Report: PROCEDURE: Stat mandible 3 images [...] Recommend CT/MRI. READING PHYSICIAN: Maged Pastor M.D. -[id number] 01/21/2024 12:15 EDT [facility] National Teleradiology Program [phone] (For Medical Practitioner Use Only) Attention Patients / Veterans: If you have questions or concerns about these test results, please contact your ordering provider or primary care team. Primary Diagnostic Code: SIGNIFICANT ABNORMALITY, ATTN NEEDED Primary Interpreting Staff: RADIOLOGY,OUTSIDE SERVICE, Staff Physician / RADIOLOGY,OUTSIDE SERVICE [facility] Encounter Notes: All associated encounter notes This section contains the clinical notes associated to the Encounter. Date/Time Encounter Note(s) Provider Source Jan 23, 2024 03:12 PM ADDENDUM: LOCAL TITLE: Addendum STANDARD TITLE: ADDENDUM DATE OF NOTE: JAN 23, 2024@15:12:01 ENTRY DATE: JAN 23, 2024@15:12:02 AUTHOR: NINA MALDONADO EXP COSIGNER: URGENCY: STATUS: COMPLETED Called patient-he will stop by clinic next sunday 01/28 around 1:30 pnm with orthotics. /roberto/ NINA MALDONADO Podiatry Health Restaurant Service Manager Signed: 01/23/2024 15:12 Receipt Acknowledged By: 01/23/2024 16:15 /roberto/ CYNTHIA ESPOSITO DPM PODIATRY ATTENDING ========= --- Original Document --- 01/21/24 TELEPHONE NOTE/SPECIALTY CLINIC: [place] walked into the clinic asking to come in for adjustment on his othotics, R foot is painful when he wears new orthotics . Please advise. /es/ HALEY NGUYEN ADVANCED COPYHOLDER Signed: 01/21/2024 10:57 Receipt Acknowledged By: 01/21/2024 15:36 /roberto/ CYNTHIA ESPOSITO DPM PODIATRY ATTENDING 01/21/2024 16:09 /roberto/ NINA MALDONADO Podiatry Health Restaurant Service Manager 01/23/2024 07:47 /es/ SHELLY TURPIN LPN LICENSED PRACTICAL NURSE 01/21/2024 ADDENDUM STATUS: COMPLETED schedule routine appointment or he can call for a cancelatiojn appoinmtment /roberto/ CYNTHIA ESPOSITO DPM PODIATRY ATTENDING Signed: 01/21/2024 15:37 01/21/2024 ADDENDUM STATUS: COMPLETED CALLED AND SCHEDULED HIM FOR 07/22 - ADVISED HIM TO CALL WEEKLY FOR CANCELLATIONS. WANTED ME TO SEND [id number] MESSAGE STATING THAT THE ISSUE WITH HIS ORTHOTIC HAS HAPPENED PREVIOUSLY. THE METATARRSAL PAD IS TOO FAR FORWARD AND NEEDS TO BE PUSHED BACK. /es/ DILIP ARCHULETA ADVANCED COPYHOLDER Signed: 01/21/2024 15:52 Receipt Acknowledged By: * AWAITING SIGNATURE * CYNTHIA ESPOSITO * AWAITING SIGNATURE * JOELNINA HEIN 01/23/2024 15:25 /roberto/ SHELLY TURPIN LPN LICENSED PRACTICAL NURSE NINA MALDONADO [place] [facility] Jan 21, 2024 03:48 PM ADDENDUM: LOCAL TITLE: Addendum STANDARD TITLE: ADDENDUM DATE OF NOTE: JAN 21, 2024@15:48:30 ENTRY DATE: JAN 21, 2024@15:48:31 AUTHOR: DILIP ARCHULETA COSIGNER: URGENCY: STATUS: COMPLETED CALLED AND SCHEDULED HIM FOR 07/22 - ADVISED HIM TO CALL WEEKLY FOR CANCELLATIONS. WANTED ME TO SEND [id number] MESSAGE STATING THAT THE ISSUE WITH HIS ORTHOTIC HAS HAPPENED PREVIOUSLY. THE METATARRSAL PAD IS TOO FAR FORWARD AND NEEDS TO BE PUSHED BACK. /roberto/ DILIP ARCHULETA ADVANCED COPYHOLDER Signed: 01/21/2024 15:52 Receipt Acknowledged By: 01/23/2024 17:17 /roberto/ CYNTHIA ESPOSITO DPM PODIATRY ATTENDING 01/24/2024 07:51 /es/ SHELLY TURPIN LPN LICENSED PRACTICAL NURSE for NINA MALDONADO 01/23/2024 15:25 /roberto/ SHELLY TURPIN LPN LICENSED PRACTICAL NURSE ========= --- Original Document --- 01/21/24 TELEPHONE NOTE/SPECIALTY CLINIC: [place] walked into the clinic asking to come in for adjustment on his othotics, R foot is painful when he wears new orthotics . Please advise. /roberto/ HALEY NGUYEN ADVANCED COPYHOLDER Signed: 01/21/2024 10:57 Receipt Acknowledged By: 01/21/2024 15:36 /roberto/ CYNTHIA ESPOSITO DPM PODIATRY ATTENDING 01/21/2024 16:09 /es/ NINA MALDONADO Podiatry Health Restaurant Service Manager 01/23/2024 07:47 /roberto/ SHELLY TURPIN LPN LICENSED PRACTICAL NURSE 01/21/2024 ADDENDUM STATUS: COMPLETED schedule routine appointment or he can call for a cancelatiojoseph appoinmtment /roberto/ CYNTHIA ESPOSITO DPM PODIATRY ATTENDING Signed: 01/21/2024 15:37 01/23/2024 ADDENDUM STATUS: COMPLETED Called patient-he will stop by clinic next sunday 01/28 around 1:30 pnm with orthotics. /roberto/ NINA MALDONADO Podiatry Health Restaurant Service Manager Signed: 01/23/2024 15:12 Receipt Acknowledged By: 01/23/2024 16:15 /roberto/ CYNTHIA ESPOSITO DPM PODIATRY ATTENDING DILIP ARCHULETA [place] [facility] Jan 21, 2024 10:54 AM TELEPHONE ENCOUNTE R NOTE: LOCAL TITLE: TELEPHONE NOTE/SPECIALTY CLINIC STANDARD TITLE: TELEPHONE ENCOUNTER NOTE DATE OF NOTE: JAN 21, 2024@10:54 ENTRY DATE: JAN 21, 2024@10:54:58 AUTHOR: HALEY NGUYEN EXP COSIGNER: URGENCY: STATUS: COMPLETED TELEPHONE NOTE/SPECIALTY CLINIC Has ADDENDA [place] walked into the clinic asking to come in for adjustment on his othotics, R foot is painful when he wears new orthotics . Please advise. /roberto/ HALEY NGUYEN ADVANCED COPYHOLDER Signed: 01/21/2024 10:57 Receipt Acknowledged By: 01/21/2024 15:36 /roberto/ CYNTHIA ESPOSITO DPM PODIATRY ATTENDING 01/21/2024 16:09 /roberto/ NINA MALDONADO Podiatry Health Restaurant Service Manager 01/23/2024 07:47 /roberto/ SHELLY TURPIN LPN LICENSED PRACTICAL NURSE 01/21/2024 ADDENDUM STATUS: COMPLETED schedule routine appointment or he can call for a cancelatiojoseph appoinenriquement /roberto/ CYNTHIA ESPOSITO DPM PODIATRY ATTENDING Signed: 01/21/2024 15:37 01/21/2024 ADDENDUM STATUS: COMPLETED CALLED AND SCHEDULED HIM FOR 07/22 - ADVISED HIM TO CALL WEEKLY FOR CANCELLATIONS. WANTED ME TO SEND [id number] MESSAGE STATING THAT THE ISSUE WITH HIS ORTHOTIC HAS HAPPENED PREVIOUSLY. THE METATARRSAL PAD IS TOO FAR FORWARD AND NEEDS TO BE PUSHED BACK. /roberto/ DILIP ARCHULETA ADVANCED COPYHOLDER Signed: 01/21/2024 15:52 Receipt Acknowledged By: * AWAITING SIGNATURE * CYNTHIA ESPOSITO * AWAITING SIGNATURE * NINA MALDONADO * AWAITING SIGNATURE * SHELLY TURPIN 01/23/2024 ADDENDUM STATUS: COMPLETED Called patient-he will stop by clinic next sunday 01/28 around 1:30 pnm with orthotics. /roberto/ NINA MALDONADO Podiatry Health Restaurant Service Manager Signed: 01/23/2024 15:12 Receipt Acknowledged By: * AWAITING SIGNATURE * CYNTHIA ESPOSITO SELMA [facility]
--- OUTSIDE RECORDS SUMMARY | 2024-07-17 16:41 | XMS_ITS | Encounter Summary ---
Author Name [facility] [place] Organization [facility] [place] Address [address] [place] [address] Care Team Providers Care Ice Guard Skating Rink Name Role Phone LORETTA HANSON Primary Care [...] [place] Aug 05, 2021 01 [id number] [id number] ELVIN WALSH PATIENT Selected Encounter This section includes the information on record at [place] for the Encounter. Date/Time Encounter Type Encounter Description Reason Provider Source Apr 24, 2024 02:00 PM OFFICE O/P EST LOW 20 MIN PRIMARY CARE/MEDICINE ICD-10-CM K21.9 Gastro-esophageal reflux disease without esophagitis LEROY HANSON AM Encounter Template Text not used by [place] Assessments - Encounter Diagnoses This section includes the primary and secondary diagnoses documented for the Encounter. Date/Time Primary/Secondary Diagnosis Diagnosis Name Provider Source Apr 24, 2024 02:19 PM PRIMARY Gastro-esophageal reflux disease without esophagitis LEROY HANSON AM [place] [facility] [place] [facility] Apr 24, 2024 02:19 PM SECONDARY Hyperlipidemia, unspecified LEROY HANSON AM [place] [facility] [place] [facility] Apr 24, 2024 02:19 PM SECONDARY Other seborrheic keratosis LEROY HANSON AM J [place] [facility] [place] [facility] Plan of Treatment: Future Appointments (+ 6 months) and Future Tests (+/- 45 days) The Plan of Treatment section includes future care activities for the patient from all [place] treatmentfacilities. This section includes future appointments and future orders which are active, pending or scheduled. Future Appointments This section includes appointments that were scheduled to occur 6 months from the date of the Encounter, up to a maximum of 20 appointments. The data comes from all [place] treatment facilities. Appointment Date/Time Appointment Type Appointme nt Facility Name Apr 29, 2024 01:00 PM AMBULATORY - MEDICINE [facility] [place] [facility] Apr 29, 2024 02:00 PM AMBULATORY - MEDICINE [facility] [place] [facility] May 13, 2024 09:30 AM AMBULATORY - MEDICINE [facility] [place] [facility] May 21, 2024 11:00 AM AMBULATORY - MEDICINE [facility] [place] [facility] May 22, 2024 01:30 PM AMBULATORY - MEDICINE [facility] [place] [facility] May 29, 2024 02:00 PM AMBULATORY - MEDICINE [facility] [place] [facility] Jun 05, 2024 10:00 AM AMBULATORY - MEDICINE [facility] [place] [facility] Jun 05, 2024 02:00 PM AMBULATORY - MEDICINE [facility] [place] [facility] Jun 05, 2024 02:45 PM AMBULATORY - NONE [facility] [place] [facility] Jun 17, 2024 08:00 AM AMBULATORY - PSYCHIATRY [facility] [place] [facility] Jun 18, 2024 08:30 AM AMBULATORY - MEDICINE [facility] [place] [facility] Jun 18, 2024 11:00 AM AMBULATORY - PSYCHIATRY [facility] [place] [facility] Jun 26, 2024 09:00 AM [facility] Jul 13, 2024 09:00 AM [facility] Jul 22, 2024 08:30 AM [facility] Oct 15, 2024 10:00 AM [facility] Active, Pending, and Scheduled Orders This [...] Date/Time Test Type Test Details Facility Name Apr 24, 2024 12:00 AM Laboratory - Chemi stry Order OCCULT BLOOD FIT X1 SCREEN(IN-HOUSE) STOOL FECES SP [facility] Jun 03, 2024 12:30 PM Consult Order DERMATOLOG Y/NHM (OUTPT) Cons Aircraft De Icer Installer's Choice [facility] Vital Signs: All taken on the encounter date This section contains inpatient and outpatient Vital Signs collected on the date of the Encounter. Date/Time Temperature Pulse Blood Pressure Respiratory Rate SP02 Pain Height Weight Body Mass Index Source Apr 24, 2024 01:56 PM 98.2 86 130/88 20 98 0 66 244 39 [facility] Social History: Smoking Status (Most current) [...] 26, 2023 10:00 AM [place]-TOBACCO FORMER USER [facility] Tobacco Use History This section includes a history of the smoking, or tobacco-related health factors, that were collected on or before the date of the Encounter. The data comes from the [place] facility where the Encounter took place. Date/Time Smoking Status/Tobacco Use Comment F acility Aug 26, 2023 10:00 AM [place]-TOBACCO QUIT 15 YRS OR MORE [facility] Apr 11, 2022 11:00 AM VA-TOBACCO FORMER USER [facility] Apr 11, 2022 11:00 AM [place]-TOBACCO QUIT 15 YRS OR MORE [facility] Advance Directives: All historical and [...] Sep 27, 2005 ADVANCE DIRECTIVE SHARLENE SIDHU [facility] Sep 10, 2005 ADVANCE DIRECTIVE DISCUSSION FRANCE RODRIGEZ [facility] Aug 14, 2004 ADVANCE DIRECTIVE DISCUSSION [facility] [place] Encounter Notes: All associated encounter notes This section contains the clinical notes associated to the Encounter. Date/Time Encounter Note(s) Provider Source Apr 24, 2024 02:13 PM PRIMARY CARE NURSE PRACTITIONER OUTPATIENT NOTE: LOCAL TITLE: NURSE PRACTITIONER OUTPATIENT NOTE STANDARD TITLE: PRIMARY CARE NURSE PRACTITIONER OUTPATIENT NOTE DATE OF NOTE: APR 24, 2024@14:13 ENTRY DATE: APR 24, 2024@14:13:15 AUTHOR: LORETTA HANSON COSIGNER: URGENCY: STATUS: COMPLETED Chief complaint: Patient is a 48 year old . HPI: Pleasant male Birdseye here to follow up. Feeling well. He is concerned about multiple moles on his back and several skin tags. No history of skin ca. He is interested in derm evaluation of moles and possible excision of skin tag lower back. Allergies: Patient has answered NKA The following [...] Fevers, chills, weakness, nights sweats On examination: 98.2 F [36.8 C] (04/24/2024 13:56)130/88 (04/24/2024 13:56)86 (04/24/2024 13:56) 20 (04/24/2024 13:56)0 (04/24/2024 13:56)BMI: 39.5244 lb [110.68 kg] (04/24/2024 13:56) is alert and oriented X3 Cardiovasc: 2plus carotids without bruits, no JVD Heart Reguler rate and rhythm NL S1S2 no S3 or murmur Respiration: Normal respiratory effort, lungs clear ABD: Benign normal active bowel sounds no HSM no rebound or referred pain EXT: no clubbing, edema, or cyanosis All diagnostics from past month were reviewed with patient. Assessment/plan: Active problems - Computerized Problem List is the source for the followin. GERD - Gastro-Esophageal Reflux Disease - stable 2. Hyperlipidemia (RUST [id number]) - improved Health Care Maintenance: declines flu and covid Review of medial record = 5mins Time spent with Patient including shared decision making = 20 mins Post visit documentation = 5mins Total time = 30 mins Follow up visit in 12 mos. Toxic Exposure Screening: The /caregiver was asked if they believe the [place]seye experienced any toxic exposure(s), such as Airborne Hazards and Open Burn [place], [place] [employer] related exposures, Agent [place], Radiation, contaminated water at [place] or other such exposures, while serving in the [employer]. has no concerns about toxic exposure(s) while serving in the [employer]. The [place]seye/caregiver was informed that we will continue to ask this screening question every 5 years. They can contact their provider/healthcare team if they have concerns about exposures and would like to be screened sooner. Printed information was offered and provided if desired. Avg Risk Colorectal Cancer Screen: AVERAGE RISK colorectal cancer screening is due based on information available to this clinical reminder FOBT/FIT (Fecal Immunochemical Testing) has been ordered. See order tab for details. Medication Reconciliation: Outpatient: Has the patient been taking medications as documented in the EMLR? YES: The patient has been taking medications as documented in the EMLR. Essential Medication List for Review used to complete this medication reconciliation. INCLUDED IN THIS LIST: Alphabetical list of active outpatient prescriptions dispensed from this [place] (local) and dispensed from another VA or [...] whether with a VA or non-VA provider. Influenza Immunization: Deferral / Refusal The patient declines to receive the recommended dose of seasonal influenza vaccine. Immunization: INFLUENZA, UNSPECIFIED FORMULATION Refusal Reason: PATIENT DECISION Patient refuses all immunization(s) in the FLU group Date Documented: 04/24/24 14:18 COVID-19 Immunization: Refused Moderna Monovalent COVID-19 vaccine Immunization: COVID-19 (MODERNA), MRNA, LNP-S, PF, 50 MCG/0.5 ML (AGES 12+ YEARS) Refusal Reason: PATIENT DECISION Patient refuses all immunization(s) in the COVID-19 group Date Documented: 04/24/24 14:18 /roberto/ Loretta Hanson DNP, AIRCRAFT INSPECTOR-BC, CNL Primary Care Nurse Practitioner Signed: 04/24/2024 14:18 LORETTA HANSON [facility]
--- OUTSIDE RECORDS SUMMARY | 2024-07-17 16:41 | XMS_ITS | Encounter Summary ---
Author Name [facility] [place] [place] [facility] [place] Organization [facility] [place] Address [address] [facility] [address], [place] [address] Care Team Providers Care Blow Mold Technician Name Role Phone LORETTA HANSON Primary [...] [place] Aug 05, 2021 01 [id number] ELVIN WALSH PATIENT Selected Encounter This section includes the information on record at [place] for the Encounter. Date/Time Encounter Type Encounter Description Reason Pro vider Source Jan 21, 2024 12:00 AM Outpatient Encounter EVENT (HISTORICAL) IHE Encounter Template Text not used by [...] 20 appointments. The data comes from all [place] treatment facilities. Appointment Date/Time Appointment Type Appointme nt Facility Name Apr 24, 2024 02:00 PM AMBULATORY - MEDICINE [facility] [place] [facility] Apr 29, 2024 01:00 PM AMBULATORY - MEDICINE [facility] [place] [facility] Apr 29, 2024 02:00 PM AMBULATORY - MEDICINE [facility] [place] [facility] May 13, 2024 09:30 AM AMBULATORY - MEDICINE [facility] [place] [facility] May 21, 2024 11:00 AM AMBULATORY - MEDICINE [facility] [place] [facility] May 22, 2024 01:30 PM AMBULATORY - MEDICINE [facility] [place] [facility] May 29, 2024 02:00 PM AMBULATORY - MEDICINE [facility] [place] [facility] Jun 05, 2024 10:00 AM AMBULATORY - MEDICINE [facility] [place] [facility] Jun 05, 2024 02:00 PM AMBULATORY - MEDICINE [facility] [place] [facility] Jun 05, 2024 02:45 PM AMBULATORY - NONE [facility] [place] [facility] Jun 17, 2024 08:00 AM AMBULATORY - PSYCHIATRY [facility] [place] [facility] Jun 18, 2024 08:30 AM AMBULATORY - MEDICINE [facility] [place] [facility] Jun 18, 2024 11:00 AM AMBULATORY - PSYCHIATRY [facility] [place] [facility] Jun 26, 2024 09:00 AM AMBULATORY - MEDICINE [facility] [place] [facility] Jul 13, 2024 09:00 AM AMBULATORY - MEDICINE [facility] [place] [facility] Jul 22, 2024 08:30 AM AMBULATORY - MEDICINE [place] [facility] [place] [facility] Active, Pending, and Scheduled Orders This section includes a listing of several types of active, pending, and scheduled orders, including clinic medications orders, diagnostic test orders, procedure orders and consult orders; where the start date of the order is 45 days before the date of the Encounter or 45 days after the date of theEncounter. The data comes from all [place] treatment [facility]. Test Date/Time Test Type Test Details Facility Name Jan 21, 2024 12:00 AM Laboratory - Chemi stry Order OCCULT BLOOD FIT X1 SCREEN(IN-HOUSE) STOOL FECES SP [facility] Lab Results: +/- 30 days of the encounter This section includes the Chemistry and Hematology Lab Results on record with [place] for the patient. Radiology Reports and Pathology Reports are provided separately, in subsequent sections. Lab Results This section contains the Chemistry/Hematology Results that were resulted 30 days before or 30 daysafter the date of the Encounter. Date/Time Source Result Type Result - Unit Interpretation Reference Range Comment Feb 12, 2024 08:41 AM [facility] LIPID PANEL, NON FASTING Specimen Type: SERUM No comment entered. Ordering Provider: MAR HANSON Report Released Date/Time: Feb 10, 2024 03:34 PM Reporting Lab: [address] [address] Performing Lab: [address] [address] CHOLESTEROL 209 mg/dL H TRIGLYCERIDE 121 mg/dL 0-150 LDL calculated 151 mg/dL H 0-129 CHOL/HDL 6.1 HDL CHOLESTEROL 34 mg/dL L 40-60 Feb 12, 2024 08:41 AM [facility] CBC Specimen Type: BLOOD No comment entered. Ordering Provider: MAR HANSON Report Released Date/Time: Feb 10, 2024 03:34 PM Reporting Lab: [address] [address] Performing Lab: [address] [address] WBC 7.42 10*3/uL 4.50-11.00 RBC 5.66 10*6/uL 4.23-5.66 HGB 16.0 g/dL 12.8-17 HCT 46.9 39.2-50.4 MCV 82.9 fL 82-99 MCHC 34.1 g/dL 30.8-35.1 PLT 223 10*3/uL 140-360 RDW-CV 12.7 12.0-16.0 MCH 28.3 pg 26.2-32.6 Feb 12, 2024 08:41 AM [facility] BASIC METABOLIC PANEL (non-fasting) Specimen Type: SERUM No comment entered. Ordering Provider: MAR HANSON Report Released Date/Time: Feb 10, 2024 03:34 PM Reporting Lab: [facility] [address] [facility] [address] Performing Lab: [address] [address] UREA NITROGEN 19 mg/dL 7-25 GLUCOSE 92 mg/dL 65-100 SODIUM 139 mmol/L 135-145 POTASSIUM 4.1 mmol/L 3.5-5.0 CHLORIDE 106 mmol/L 100-110 CO2 22 meq/L 20-30 CREATININE, Serum 0.99 mg/dL 0.50-1.40 eGFR(CKD-EPI 2020) >90 mL/min >60 Feb 12, 2024 08:41 AM [facility] LIVER FUNCTION Specimen Type: SERUM No comment entered. Ordering Provider: MAR HANSON Report Released Date/Time: Feb 10, 2024 03:34 PM Reporting Lab: [address] [address] Performing Lab: [address] [address] PROTEIN,TOTAL 6.8 g/dL 6.0-8.3 ALBUMIN 4.0 g/dL [...] 10:50 AM 98 102 126/80 16 3 [facility] Social History: Smoking Status (Most current) and Tobacco Use (All prior to encounter date) This section includes the most current, and the historical, smoking and tobacco- related health factors from the [place] facility where the Encounter took place. Current Smoking Status This section includes the most current smoking, or tobacco-related health factor, from the [place] facility where the Encounter took place. Date/Time Current Smoking Status Comment Terri ity Aug 26, 2023 10:00 AM [place]-TOBACCO FORMER USER [facility] Tobacco Use History This section includes a history of the smoking, or tobacco-related health factors, that were collected on or before the date of the Encounter. The data comes from the [place] facility where the Encounter took place. Date/Time Smoking Status/Tobacco Use Comment F acility Aug 26, 2023 10:00 AM [place]-TOBACCO QUIT 15 YRS OR MORE [facility] Apr 11, 2022 11:00 AM [place]-TOBACCO FORMER USER [facility] Apr 11, 2022 11:00 AM [place]-TOBACCO QUIT 15 YRS OR MORE [facility] Advance Directives: All historical and current Section Date Range: From patient's date of to the date document was created. This section includes ALL of a patient's completed or amended [place] Advance and Rescinded Directives. The entries below indicate that a directive exists for the patient, but an actual copy is not included with this document. The data comes from all [facility]. Date Advance Directives Provider Source May 16, 2011 ADVANCE DIRECTIVE DISCUSSION TON SARAVIA Sep 27, 2005 ADVANCE DIRECTIVE SHARLENE SIDHU [facility] Sep 10, 2005 ADVANCE DIRECTIVE DISCUSSION FRANCE RODRIGEZ [facility] Aug 14, 2004 ADVANCE DIRECTIVE DISCUSSION [...] the Encounter. The data comes from all [place] treatment facilities. Date/Time Radiology Report Provider Source Jan 21, 2024 11:02 AM MANDIBLE LESS THAN 4 VIEWS: ELVIN REYNA [id number] M Exm Date: JAN 21, 2024@11:02 Req Phys: GANGA DAVID Pat Loc: [facility]/NO/SICK CALL PA (Req'g Loc Img Loc: [place]/BUILDING 1 Service: Unknown [facility] , (Case [id number] COMPLETE) MANDIBLE LESS THAN 4 VIEWS (RAD Detailed) CPT:03670 Reason for Study: SWELLING AND PAIN Clinical History: R/O MASS Report Status: Verified Date Reported: JAN 21, 2024 Date Verified: JAN 21, 2024 Plant Security Guard E-Sig: Report: PROCEDURE: Stat mandible 3 images [...] Recommend CT/MRI. READING PHYSICIAN: Maged Pastor M.D. -[id number] 01/21/2024 12:15 EDT [facility] National Teleradiology Program [phone] (For Medical Practitioner Use Only) Attention Patients / Veterans: If you have questions or concerns about these test results, please contact your ordering provider or primary care team. Primary Diagnostic Code: SIGNIFICANT ABNORMALITY, ATTN NEEDED Primary Interpreting Staff: RADIOLOGY,OUTSIDE SERVICE, Staff Physician / RADIOLOGY,OUTSIDE SERVICE [facility]
--- OUTSIDE RECORDS SUMMARY | 2024-07-17 16:41 | XMS_ITS | Encounter Summary ---
Author Name [facility] [place] [facility] [place] Organization [facility] [place] Address [address] [place] [address] Care Team Providers Care Physiotherapy Aide Name Role Phone LORETTA HANSON Primary Care [...] [place] H Aug 05, 2021 01 [id number] ELVIN WALSH PATIENT Selected Encounter This section includes the information on record at [place] for the Encounter. Date/Time Encounter Type Encounter Description Reason Provider Source Jan 21, 2024 11:30 AM OFFICE O/P EST LOW 20 MIN PRIMARY CARE/MEDICINE ICD-10-CM K11.21 Acute sialoadenitis GANGA DAVID Zahra Encounter Template Text not used by [place] Assessments - Encounter Diagnoses This section includes the primary and secondary diagnoses documented for the Encounter. Date/Time Primary/Secondary Diagnosis Diagnosis Name Provider Source Jan 21, 2024 12:32 PM PRIMARY Acute sialoadenitis GANGA DAVID [place] [facility] [place] [facility] Plan of Treatment: Future Appointments (+ 6 months) and Future Tests (+/- 45 days) The Plan of Treatment section includes future care activities for the patient from all [facility] This section includes future appointments and future orders which are active, pending or scheduled. Future Appointments This section includes appointments that were scheduled to occur 6 months from the date of the Encounter, up to a maximum of 20 appointments. The data comes from all [place] treatment facilities. Appointment Date/Time Appointment Type Appointme nt Facility Name Apr 24, 2024 02:00 PM AMBULATORY - MEDICINE [facility] [place] [facility] Apr 29, 2024 01:00 PM AMBULATORY - MEDICINE [facility] [place] [facility] Apr 29, 2024 02:00 PM AMBULATORY - MEDICINE [facility] [place] [facility] May 13, 2024 09:30 AM AMBULATORY - MEDICINE [facility] [place] [facility] May 21, 2024 11:00 AM AMBULATORY - MEDICINE [facility] [place] [facility] May 22, 2024 01:30 PM AMBULATORY - MEDICINE [facility] [place] [facility] May 29, 2024 02:00 PM AMBULATORY - MEDICINE [facility] [place] [facility] Jun 05, 2024 10:00 AM AMBULATORY - MEDICINE [facility] [place] [facility] Jun 05, 2024 02:00 PM AMBULATORY - MEDICINE [facility] [place] [facility] Jun 05, 2024 02:45 PM AMBULATORY - NONE [facility] [place] [facility] Jun 17, 2024 08:00 AM AMBULATORY - PSYCHIATRY [facility] [place] [facility] Jun 18, 2024 08:30 AM AMBULATORY - MEDICINE [facility] [place] [facility] Jun 18, 2024 11:00 AM AMBULATORY - PSYCHIATRY [facility] [place] [facility] Jun 26, 2024 09:00 AM AMBULATORY - MEDICINE [facility] [place] [facility] Jul 13, 2024 09:00 AM AMBULATORY - MEDICINE [facility] [place] [facility] Jul 22, 2024 08:30 AM AMBULATORY - [...] of theEncounter. The data comes from all [place] treatment facilities. Test Date/Time Test Type Test Details Facility Name Jan 21, 2024 12:00 AM Laboratory - Chemi stry Order OCCULT BLOOD FIT X1 SCREEN(IN-HOUSE) STOOL FECES SP [facility] Lab Results: +/- 30 days of the encounter This section includes the Chemistry and Hematology Lab Results on record with [place] for the patient. Radiology Reports and Pathology Reports are provided separately, in subsequent sections. Lab Results This section contains the Chemistry/Hematology Results that were resulted 30 days before or 30 daysafter the date of the Encounter. Date/Time Source Result Type Result - Unit Interpretation Reference Range Comment Feb 12, 2024 08:41 AM [facility] BASIC METABOLIC PANEL (non-fasting) Specimen Type: SERUM No comment entered. Ordering Provider: MAR HANSON Report Released Date/Time: Feb 10, 2024 03:34 PM Reporting Lab: [address] [address] Performing Lab: [address] [address] UREA NITROGEN 19 mg/dL 7-25 GLUCOSE 92 mg/dL 65-100 SODIUM 139 mmol/L 135-145 POTASSIUM 4.1 mmol/L 3.5-5.0 CHLORIDE 106 mmol/L 100-110 CO2 22 meq/L 20-30 CREATININE, Serum 0.99 mg/dL 0.50-1.40 eGFR(CKD-EPI 2020) >90 mL/min >60 Feb 12, 2024 08:41 AM [facility] CBC Specimen Type: BLOOD No comment entered. Ordering Provider: MAR HANSON Report Released Date/Time: Feb 10, 2024 03:34 PM Reporting Lab: [address] [address] Performing Lab: [facility] [address] [facility] [address] WBC 7.42 10*3/uL 4.50-11.00 RBC 5.66 10*6/uL 4.23-5.66 HGB 16.0 g/dL 12.8-17 HCT 46.9 39.2-50.4 MCV 82.9 fL 82-99 MCHC 34.1 g/dL 30.8-35.1 PLT 223 10*3/uL 140-360 RDW-CV 12.7 12.0-16.0 MCH 28.3 pg 26.2-32.6 Feb 12, 2024 08:41 AM [facility] LIPID PANEL, NON FASTING Specimen Type: SERUM No comment entered. Ordering Provider: MAR HANSON Report Released Date/Time: Feb 10, 2024 03:34 PM Reporting Lab: [address] [address] Performing Lab: [address] [address] CHOLESTEROL 209 mg/dL H TRIGLYCERIDE 121 mg/dL 0-150 LDL calculated 151 mg/dL H 0-129 CHOL/HDL 6.1 HDL CHOLESTEROL 34 mg/dL L 40-60 Feb 12, 2024 08:41 AM [facility] LIVER FUNCTION Specimen Type: SERUM No comment entered. Ordering Provider: MAR HANSON Report Released Date/Time: Feb 10, 2024 03:34 PM Reporting Lab: [address] [address] Performing Lab: [address] [address] PROTEIN,TOTAL 6.8 g/dL 6.0-8.3 ALBUMIN 4.0 g/dL [...] 10:50 AM 98 102 126/80 16 3 [facility] Social History: Smoking Status (Most current) and Tobacco Use (All prior to encounter date) This section includes the most current, and the historical, smoking and tobacco- related health factors from the [place] facility where the Encounter took place. Current Smoking Status This section includes the most current smoking, or tobacco-related health factor, from the [place] facility where the Encounter took place. Date/Time Current Smoking Status Comment Facil ity Aug 26, 2023 10:00 AM MS-TOBACCO FORMER USER [facility] Tobacco Use History This section includes a history of the smoking, or tobacco-related health factors, that were collected on or before the date of the Encounter. The data comes from the [place] facility where the Encounter took place. Date/Time Smoking Status/Tobacco Use Comment F acility Aug 26, 2023 10:00 AM [place]-TOBACCO QUIT 15 [facility]RS OR [facility] Apr 11, 2022 11:00 AM [facility]-TOBACCO FOR[facility]ER [facility] Apr 11, 2022 11:00 AM MS-TOBACCO QUIT 15 YRS OR MORE [facility] Advance Directives: All historical and current Section Date Range: From patient's date of to the date document was created. This section includes ALL of a patient's completed or amended [place] Advance and Rescinded Directives. The entries below indicate that a directive exists for the patient, but an actual copy is not included with this document. The data comes from all [place] facilities. Date Advance Directives Provider Source May 16, 2011 ADVANCE DIRECTIVE DISCUSSION TON SARAVIA Sep 27, 2005 ADVANCE DIRECTIVE SHARLENE SIDHU [facility] Sep 10, 2005 ADVANCE DIRECTIVE DISCUSSION FRANCE RODRIGEZ [facility] Aug 14, 2004 ADVANCE DIRECTIVE [...] the Encounter. The data comes from all [place] treatment facilities. Date/Time Radiology Report Provider Source Jan 21, 2024 11:02 AM MANDIBLE LESS THAN 4 VIEWS: ELVIN REYNA [id number] -[id number] M Exm Date: JAN 21, 2024@11:02 Req Phys: GANGA DAVID Loc: CWM/NO/SICK CALL PA (Req'g Loc Img Loc: [facility] Service: Unknown [place] [facility] [place] [facility] , (Case [id number] COMPLETE) MANDIBLE LESS THAN 4 VIEWS (RAD Detailed) CPT:63190 Reason for Study: SWELLING AND PAIN Clinical History: R/O MASS Report Status: Verified Date Reported: JAN 21, 2024 Date Verified: JAN 21, 2024 Post Anesthesia Nurse E-Sig: Report: PROCEDURE: Stat mandible 3 images [...] Recommend CT/MRI. READING PHYSICIAN: Maged Pastor M.D. -[id number] 01/21/2024 12:15 EDT [facility] National AppTankradiology Program [phone] (For Medical Practitioner Use Only) Attention Patients / Veterans: If you have questions or concerns about these test results, please contact your ordering provider or primary care team. Primary Diagnostic Code: SIGNIFICANT ABNORMALITY, ATTN NEEDED Primary Interpreting Staff: RADIOLOGY,OUTSIDE SERVICE, Staff Physician / RADIOLOGY,OUTSIDE SERVICE [place] [facility] [place] [facility] Encounter Notes: All associated encounter notes This section contains the clinical notes associated to the Encounter. Date/Time Encounter Note(s) Provider Source Jan 21, 2024 12:11 PM PHYSICIAN CLINICAL CARE COORDINATOR NOTE: LOCAL TITLE: PA NOTE STANDARD TITLE: PHYSICIAN CLINICAL CARE COORDINATOR NOTE DATE OF NOTE: JAN 21, 2024@12:11 ENTRY DATE: JAN 21, 2024@12:11:18 AUTHOR: GANGA DAVID EXP COSIGNER: URGENCY: STATUS: COMPLETED SICK CALL VISIT HPI: 48-year-old male with below noted past medical history and recently seen by this provider for eustachian tube dysfunction presents today with 3-day history of left jaw pain. He states that the cetirizine and the Astelin nasal spray has been effective somewhat however he has developed pain and swelling along the left side of his jaw. He describes the pain as a burning ache that pulsates intermittently. He has no radiation of this pain. He has no worsening with chewing, drinking or oral care. He has not had any fever or chills. There is been no sore throat. He feels heat at the swollen area. REVIEW OF SYSTEMS: A 12 point review [...] Gastro-Esophageal Reflux Dis 04/11/2022 LORETTA HANSON Anxiety ([facility] [id number]) F41.9 04/11/2022 LORETTA HANSON Hyperlipidemia ([facility] [id number]) E78.5 04/11/2022 LORETTA HANSON Fatty liver K76.0 04/11/2022 LORETTA HANSON Family history of diabetes mellitus 04/11/2022 LORETTA HANSON Meds: Active Outpatient Medications (including Supplies): AMOXICILLIN 875/CLAV K 125MG TAB TAKE 1 TABLET BY MOUTH PENDING TWICE DAILY FOR INFECTION AZELASTINE 137MCG/SPRAY 200D NASAL INHL SPRAY 1 SPRAY INTO ACTIVE EACH NOSTRIL ONCE DAILY FOR SEASONAL RUNNY NOSE CETIRIZINE HCL 10MG TAB TAKE ONE TABLET BY MOUTH ONCE ACTIVE DAILY FOR ALLERGIES CHOLECALCIF 50MCG (D3-2,000UNIT) TAB TAKE ONE TABLET BY ACTIVE (S) MOUTH ONCE DAILY FOR VITAMIN SUPPLEMENTATION OMEPRAZOLE 20MG EC CAP TAKE ONE CAPSULE BY MOUTH ONCE ACTIVE DAILY Non-VA PROBIOTIC (CULTURELLE DIGESTIVE DAILY) CAP/TAB BY ACTIVE MOUTH Allergies: Patient has answered NKA Date Vital Measurement Qualifiers 01/21/2024 10:50 Temp F (C) 98 (36.7) Pulse 102 Respir 16 BP 126/80 Pain 3 FOCUSED EXAMINATION GEN: WD NON-TOXIC HEENT: NC/AT PERRLA/EOMI/ANICTERIC OP: PATENT, UVULA MIDLINE NECK: Supple nontender, mild left submandibular LAD Along the left parotid region is some soft tissue swelling with tenderness and slight bogginess of the tissue. There is no trismus. Able to lateralize and extend jaw without difficulty. RESP: Even and regular Vascular: Well perfused Neuro: Nonfocal DATA: Mandible image: Impression: No acute fracture. Markedly prominent neck soft tissues could be due to body habitus, inflammatory or infectious etiologies and are not well evaluated by radiographs. A mass cannot be excluded. Recommend CT/MRI. MDM: No palpable mass on exam. Reading is obese with thickened neck. We will treat for parotitis. Reading will use Augmentin 875 mg 1 p.o. twice daily x10 days. We will also use sour candies/lemon to help improve salivation. If persists a CT/MRI of the area would be prudent. If resolves, no further work-up deemed necessary at this time. ASSESSMENT/PLAN Acute Sialoadenitis as above able to verbalize understanding of plan of care and agrees. >> MEDICATIONS Reviewed and reconciled with /es/ GANGA GIVENS MS,PA-C PHYSICIAN CLINICAL CARE COORDINATOR Signed: 01/21/2024 12:32 Receipt Acknowledged By: 01/21/2024 13:13 /es/ Loretta Hanson DNP, [place]-PARAG, CNL Primary Care Nurse Practitioner 01/21/2024 13:58 /es/ Jacey Moya MSN RN CNL Primary Care RN [facility] DAVID [facility]
--- OUTSIDE RECORDS SUMMARY | 2024-07-17 16:42 | XMS_ITS | Encounter Summary ---
Author Name [facility] [place] Address [address] [place] [address] Care Team Providers Care Cable Machine Operator Name Role Phone LORETTA HANSON Primary [...] [place] H Aug 05, 2021 01 [phone] [id number] ELVIN WALSH PATIENT Selected Encounter This section includes the information on record at [place] for the Encounter. Date/Time Encounter Type Encounter Description Reason Provider Source Apr 29, 2024 01:00 PM OFF/OP EST DECEMBER X REQ PHY/QHP PRIMARY CARE/MEDICINE ICD-10-CM Z71.89 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ed counseling INES CHAMORRO IHZahra Encounter Template Text not used by [facility] Assessments - Encounter Diagnoses This section includes the primary and secondary diagnoses documented for the Encounter. Date/Time Primary/Secondary Diagnosis Diagnosis Name Provider Source Apr 29, 2024 01:59 PM PRIMARY 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ed counseling INES CHAMORRO [facility] [place] [place] [facility] Plan of Treatment: Future Appointments (+ 6 months) and Future Tests (+/- 45 days) The Plan of Treatment section includes future care activities for the patient from all [place] [facility]. This section includes future appointments and future orders which are active, pending or scheduled. Future Appointments This section includes appointments that were scheduled to occur 6 months from the date of the Encounter, up to a maximum of 20 appointments. The data comes from all [place] treatment facilities. Appointment Date/Time Appointment Type Appointme nt Facility Name May 13, 2024 09:30 AM AMBULATORY - MEDICINE [place] [facility] [place] [facility] May 21, 2024 11:00 AM AMBULATORY - MEDICINE [place] [facility] [place] [facility] May 22, 2024 01:30 PM AMBULATORY - MEDICINE [place] [facility] [place] [place] [facility] May 29, 2024 02:00 PM AMBULATORY - MEDICINE [place] [facility] [place] [place] [facility] Jun 05, 2024 10:00 AM AMBULATORY - MEDICINE [place] [facility] [place] [place] [facility] Jun 05, 2024 02:00 PM AMBULATORY - MEDICINE [place] [facility] [place] [facility] Jun 05, 2024 02:45 PM AMBULATORY - NONE [facility] [place] [facility] Jun 17, 2024 08:00 AM AMBULATORY - PSYCHIATRY [place] [facility] [place] [facility] Jun 18, 2024 08:30 AM AMBULATORY - MEDICINE [place] [place] [facility] Jun 18, 2024 11:00 AM AMBULATORY - PSYCHIATRY [place] [facility] [place] [facility] Jun 26, 2024 09:00 AM AMBULATORY - MEDICINE [place] [place] [facility] Jul 13, 2024 09:00 AM AMBULATORY - MEDICINE [place] [place] [facility] Jul 22, 2024 08:30 AM AMBULATORY - MEDICINE [place] [place] [facility] Oct 15, 2024 10:00 AM AMBULATORY - MEDICINE [place] [place] [facility] Active, Pending, and Scheduled Orders This section includes a listing of several types of active, pending, and scheduled orders, including clinic medications orders, diagnostic test orders, procedure orders and consult orders; where the start date of the order is 45 days before the date of the Encounter or 45 days after the date of theEncounter. The data comes from all [place] treatment facilities. Test Date/Time Test Type Test Details Facility Name Apr 24, 2024 12:00 AM Laboratory - Chemi stry Order OCCULT BLOOD FIT X1 SCREEN(IN-HOUSE) STOOL FECES SP [facility] Jun 03, 2024 12:30 PM Consult Order DERMATOLOG Y/NHM (OUTPT) Cons Knotter's Choice [facility] Vital Signs: All taken on the encounter date This section contains inpatient and outpatient Vital Signs collected on the date of the Encounter. Date/Time Temperature Pulse Blood Pressure Respiratory Rate SP02 Pain Height Weight Body Mass Index Source Apr 29, 2024 01:23 PM 98.2 77 118/86 16 2 [facility] Social History: Smoking Status (Most current) and Tobacco Use (All prior to encounter date) This section includes the most current, and the historical, smoking and tobacco- related health factors from the [place] facility where the Encounter took place. Current Smoking Status This section includes the most current smoking, or tobacco-related health factor, from the [place] facility where the Encounter took place. Date/Time Current Smoking Status Comment Facil ity Aug 26, 2023 10:00 AM [place]-TOBACCO FORMER USER [facility] Tobacco Use History This section includes a history of the smoking, or tobacco-related health factors, that were collected on or before the date of the Encounter. The data comes from the [place] facility where the Encounter took place. Date/Time Smoking Status/Tobacco Use Comment F acility Aug 26, 2023 10:00 AM [place]-TOBACCO QUIT 15 YRS OR MORE [facility] Apr 11, 2022 11:00 AM [place] Apr 11, 2022 11:00 AM [place]-TOBACCO QUIT 15 YRS OR MORE [facility] Advance Directives: All historical and current Section Date Range: From patient's date of to the date document was created. This section includes ALL of a patient's completed or amended [place] Advance and Rescinded Directives. The entries below indicate that a directive exists for the patient, but an actual copy is not included with this document. The data comes from all [place] facilities. Date Advance Directives Provider Source May 16, 2011 ADVANCE DIRECTIVE DISCUSSION TON [place] Sep 27, 2005 ADVANCE DIRECTIVE NAHUMSHARLENE Lo [facility] Sep 10, 2005 [facility] DISCUSSION [facility] Aug 14, 2004 ADVANCE DIRECTIVE DISCUSSION REGULO AGUILAR [place] Encounter Notes: All associated encounter notes This section contains the clinical notes associated to the Encounter. Date/Time Encounter Note(s) Provider Source Apr 29, 2024 01:24 PM PRIMARY CARE OUTPA TIENT NOTE: LOCAL TITLE: AMBULATORY/OUTPATIENT CARE NOTE STANDARD TITLE: PRIMARY CARE OUTPATIENT NOTE DATE OF NOTE: APR 29, 2024@13:24 ENTRY DATE: APR 29, 2024@13:24:23 AUTHOR: INGRID CHAMORRO EXP COSIGNER: URGENCY: STATUS: COMPLETED A: Walk In D/A: Vet presents to primary care with complaint of head and chest congestion progressing over the past week. Vet reports today he has a productive cough with yellow sputum, pressure in ears bilaterally with nasal and chest congestion. Vet used home covid test this past Sat but was negative. Vet reports using OTC medications with some effect. Denies any fever or chills, denies any SOB or difficulty breathing. On exam lungs are clear and equal bilaterally. Ears viewed, canals are clear, TMs bulging. Vet afebrile today. R: Vet to see [place] provider /es/ Ingrid Chamorro MSN RN CNL Primary Care RN Signed: 04/29/2024 14:00 INGRID CHAMORRO [place] [facility]
--- OUTSIDE RECORDS SUMMARY | 2024-07-17 16:42 | XMS_ITS | Encounter Summary ---
Author Name [place] Address [address] [place] [address] Care Team Providers Care Facilities Engineer Name Role Phone LORETTA HANSON Primary [...] Gonzalez [facility] MEDICAID [facility] Aug 05, 2021 01 [id number] ELVIN WALSH PATIENT Selected Encounter This section includes the information on record at [place] for the Encounter. Date/Time Encounter Type Encounter Description Reason Provider Source Sep 21, 2023 09:37 AM MTMS BY PHARM CONSERVATION OFFICER 15 MIN CLINICAL PHARMACY ICD-10-CM Z71.89 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ed counseling ESVIN BUCKNER Encounter Template Text not used by [place] Assessments - Encounter Diagnoses This section includes the primary and secondary diagnoses documented for the Encounter. Date/Time Primary/Secondary Diagnosis Diagnosis Name Provider Source Sep 21, 2023 09:38 AM PRIMARY 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ed counseling ESVIN BUCKNER [facility] Plan of Treatment: Future Appointments (+ 6 months) and Future Tests (+/- 45 days) The Plan of Treatment section includes [facility] This section includes future appointments [...] AMBULATORY - [facility]IATRY [facility] [place] [facility] Nov 01, 2023 11:00 AM AMBULATORY - MEDICINE [facility] [place] [facility] Nov 26, 2023 09:30 AM [facility]ULATORY - MEDICINE [facility] [place] [facility] Nov 26, 2023 10:30 AM [facility]ULATORY [facility] MEDICINE [facility] [place] [facility] Nov 26, 2023 10:35 AM AMBULATORY - MEDICINE [facility] [place] [facility] Dec 03, 2023 01:30 PM AMBULATORY - REHAB MEDICIN E [facility] [place] [facility] December 05, 2023 08:00 AM AMBULATORY - MEDICINE [facility] [place] [facility] December 10, 2023 03:00 PM AMBULATORY - REHAB MEDICIN E [facility] [place] [facility] December 17, 2023 03:00 PM AMBULATORY - REHAB MEDICIN E [facility] [place] [facility] December 24, 2023 03:00 PM AMBULATORY - REHAB MEDICIN E [facility] [place] [facility] January 01, 2024 11:00 AM AMBULATORY - MEDICINE [facility] [place] [facility] Jan 07, 2024 09:30 AM AMBULATORY - REHAB MEDICIN E [facility] [place] [facility] Jan 08, 2024 09:00 AM AMBULATORY - PSYCHIATRY [facility] [place] [facility] Jan 21, 2024 10:30 AM AMBULATORY - MEDICINE [facility] [place] [facility] Jan 21, 2024 11:30 AM AMBULATORY - MEDICINE [facility] [place] [facility] Lab Results: +/- 30 days [...] Range Comment Aug 26, 2023 09:57 AM [facility] THYROID T4 FREE(FT4) Specimen Type: SERUM No comment entered. Ordering Provider: LEROY HANSON AM Report Released Date/Time: Aug 13, 2023 02:31 PM Reporting Lab: [facility] [address] [address] Performing Lab: [facility] [address] [address] THYROID T4 FREE(FT4) 0.98 ng/dL 0.6-1.6 Aug 26, 2023 09:57 AM [facility] LIVER FUNCTION Specimen Type: SERUM No comment entered. Ordering Provider: LEROY HANSON AM Report Released Date/Time: Aug 13, 2023 02:31 PM Reporting Lab: [facility] [address] [address] Performing Lab: [address] [address] PROTEIN,TOTAL 6.9 g/dL 6.0-8.3 ALBUMIN 4.1 g/dL 3.5-5.0 ALKALINE PHOSPHATASE 72 U/L 40-150 AST 30 U/L 5-34 ALT 50 U/L BILIRUBIN, TOTAL 0.7 mg/dL 0.2-1.2 Aug 26, 2023 09:57 AM [facility] HEMOGLOBIN A1C PANEL Specimen Type: BLOOD Comment: [...] Aug 13, 2023 02:31 PM Reporting Lab: [place] [facility] [place] [facility] [address] [address] Performing Lab: [place] [facility] [place] [facility] [address] [address] HEMOGLOBIN A1C 5.0 4.0-5.6 Aug 26, 2023 09:57 AM [facility] VITAMIN D (25-OH) Specimen Type: SERUM No comment entered. Ordering Provider: LEROY HANSON AM Report Released Date/Time: Aug 13, 2023 02:31 PM Reporting Lab: [facility] [address] [address] Performing Lab: [place] [facility] [address] [address] VITAMIN D (25-OH) 25 ng/mL 20-50 Aug 26, 2023 09:57 AM [facility] TSH Specimen Type: SERUM No comment entered. Ordering Provider: LEROY HANSON AM Report Released Date/Time: Aug 13, 2023 02:31 PM Reporting Lab: [facility] [address] [facility] [address] Performing Lab: [place] [facility] [address] [address] TSH 2.36 u[IU]/mL 0.35-5.00 Aug 26, 2023 09:57 AM [facility] CBC Specimen Type: BLOOD No comment entered. Ordering Provider: LEROY HANSON AM Report Released Date/Time: Aug 13, 2023 02:31 PM Reporting Lab: [facility] [address] [address] Performing Lab: [place] [facility] [address] [address] WBC 7.02 10*3/uL 4.50-11.00 RBC 5.84 10*6/uL H 4.23-5.66 HGB 16.5 g/dL 12.8-17 HCT 48.2 39.2-50.4 MCV 82.5 fL 82-99 MCHC 34.2 g/dL 30.8-35.1 PLT 207 10*3/uL 140-360 RDW-CV 13.1 12.0-16.0 MCH 28.3 pg 26.2-32.6 Aug 26, 2023 09:57 AM [facility] LIPID PANEL FASTING Specimen Type: SERUM No comment entered. Ordering Provider: LEROY HANSON AM Report Released Date/Time: Aug 13, 2023 02:31 PM Reporting Lab: [facility] [address] [address] Performing Lab: [address] [address] CHOLESTEROL 220 mg/dL H TRIGLYCERIDE 85 mg/dL 0-150 LDL calculated 169 mg/dL H 0-129 CHOL/HDL 6.5 HDL CHOLESTEROL 34 mg/dL L 40-60 Aug 26, 2023 09:57 AM [facility] BASIC METABOLIC PANEL (fasting) Specimen Type: SERUM No comment entered. Ordering Provider: LEROY HANSON AM Report Released Date/Time: Aug 13, 2023 02:31 PM Reporting Lab: [facility] [address] [address] Performing Lab: [address] [address] UREA NITROGEN 16 mg/dL 7-25 GLUCOSE 98 mg/dL 65-100 SODIUM 140 mmol/L 135-145 POTASSIUM 4.2 mmol/L 3.5-5.0 CHLORIDE 109 mmol/L 100-110 CO2 21 meq/L 20-30 CREATININE, Serum 1.01 mg/dL 0.50-1.40 eGFR(CKD-EPI 2020) >90 mL/min >60 Advance Directives: All historical and current Section [...] 10, 2005 ADVANCE DIRECTIVE DISCUSSION FRANCE RODRIGEZ [facility] Aug 14, 2004 ADVANCE DIRECTIVE DISCUSSION REGULO AGUILAR [place] Encounter Notes: All associated encounter notes This section contains the clinical notes associated to the Encounter. Date/Time Encounter Note(s) Provider Source Sep 21, 2023 09:38 AM PHARMACY CONSULT: LOCAL TITLE: CONSULT /PHARMACOGENOMICS STANDARD TITLE: PHARMACY CONSULT DATE OF NOTE: SEP 21, 2023@09:38 ENTRY DATE: SEP 21, 2023@09:38:10 AUTHOR: ESVIN BUCKNER EXP COSIGNER: URGENCY: STATUS: COMPLETED Will call the patient to obtain verbal consent for PHASER Testing. Will also educate the patienton the purpose of pharmacogenomics testing and instructions on how to obtain blood testing for PHASER at the [facility] lab, or the [facility] lab if they would prefer. After obtaining the consent, will contact the ordering provider to let them know that they should enter in the lab order. I will add an addendum to this consult as well as alert the ordering provider via e-mail once the PHASER results return (typically 7-14 days after the blood draw) /roberto/ ESVIN BUCKNER PHARMD CLINICAL PHARMACIST Signed: 09/21/2023 09:38 ESVIN BUCKNER [facility]
--- OUTSIDE RECORDS SUMMARY | 2024-07-17 16:42 | XMS_ITS | Encounter Summary ---
Author Name [place] Address [address], [place] [address] Care Team Providers Care Manager Landscape Name Role Phone LORETTA HANSON Primary Care [...] [place] Aug 05, 2021 01 [id number] ELVIN WALSH PATIENT Selected Encounter This section includes the information on record at [place] for the Encounter. Date/Time Encounter Type Encounter Description Reason Pro vider Source Apr 24, 2024 02:00 PM Outpatient Encounter EVENT (HISTORICAL) IHE Encounter Template [...] 20 appointments. The data comes from all [place] treatment facilities. Appointment Date/Time Appointment Type Appointme nt Facility Name Apr 29, 2024 01:00 PM AMBULATORY [facility] MEDICINE [facility] [place] [facility] Apr 29, 2024 02:00 PM AMBULATORY - MEDICINE [facility] [place] [place] [facility] May 13, 2024 09:30 AM AMBULATORY - MEDICINE [facility] [place] [place] [facility] May 21, 2024 11:00 AM AMBULATORY - MEDICINE [facility] [place] [place] [facility] May 22, 2024 01:30 PM AMBULATORY - MEDICINE [facility] [place] [facility] May 29, 2024 02:00 PM AMBULATORY - MEDICINE [facility] [place] [place] [facility] Jun 05, 2024 10:00 AM AMBULATORY - MEDICINE [facility] [place] [place] [facility] Jun 05, 2024 02:00 PM AMBULATORY - MEDICINE [facility] [place] [facility] Jun 05, 2024 02:45 PM AMBULATORY - NONE [facility] [place] [facility] Jun 17, 2024 08:00 AM AMBULATORY - PSYCHIATRY [facility] [place] [facility] Jun 18, 2024 08:30 AM AMBULATORY - MEDICINE [facility] [place] [facility] Jun 18, 2024 11:00 AM AMBULATORY - PSYCHIATRY [facility] [place] [facility] Jun 26, 2024 09:00 AM AMBULATORY - MEDICINE [facility] [place] [place] [facility] Jul 13, 2024 09:00 AM AMBULATORY - MEDICINE [facility] [place] [place] [facility] Jul 22, 2024 08:30 AM AMBULATORY - MEDICINE [facility] [place] [facility] Oct 15, 2024 10:00 AM AMBULATORY - MEDICINE [place] [facility] [facility] Active, Pending, and Scheduled Orders This section includes a listing of several types of active, pending, and scheduled orders, including clinic medications orders, diagnostic test orders, procedure orders and consult orders; where the start date of the order is 45 days before the date of the Encounter or 45 days after the date of theEncounter. The data comes from all [place] treatment [facility]. Test Date/Time Test Type Test Details Facility Name Apr 24, 2024 12:00 AM Laboratory - Chemi stry Order OCCULT BLOOD FIT X1 SCREEN(IN-HOUSE) STOOL FECES SP [facility] Jun 03, 2024 12:30 PM Consult Order DERMATOLOG Y/NHM (OUTPT) Cons Sheet Metal Installer's Choice [facility] Vital Signs: All taken on the encounter date This section contains inpatient and outpatient Vital Signs collected on the date of the Encounter. Date/Time Temperature Pulse Blood Pressure Respiratory Rate SP02 Pain Height Weight Body Mass Index Source Apr 24, 2024 01:56 PM 98.2 86 130/88 20 98 0 66 244 39 [facility] Social History: Smoking Status (Most current) and Tobacco Use (All prior to encounter date) This section includes the most current, and the historical, smoking and tobacco- related health factors from the [place] facility where the Encounter took place. Current Smoking Status This section includes the most current smoking, or tobacco-related health factor, from the [place] facility where the Encounter took place. Date/Time Current Smoking Status Comment Facil ity Aug 26, 2023 10:00 AM [place]-TOBACCO FORMER USER [facility] Tobacco Use History This section includes a history of the smoking, or tobacco-related health factors, that were collected on or before the date of the Encounter. The data comes from the [place] facility where the Encounter took place. Date/Time Smoking Status/Tobacco Use Comment F acility Aug 26, 2023 10:00 AM [place]-TOBACCO QUIT 15 YRS OR MORE [facility] Apr 11, 2022 11:00 AM [place]-TOBACCO FORMER USER [facility] Apr 11, 2022 11:00 AM [place]-TOBACCO QUIT 15 YRS OR MORE [facility] Advance Directives: All historical and current Section Date Range: From patient's date of to the date document was created. This section includes ALL of a patient's completed or amended [place] Advance and Rescinded Directives. The entries below indicate that a directive exists for the patient, but an actual copy is not included with this document. The data comes from all [place] facilities. Date Advance Directives Provider Source May 16, 2011 ADVANCE DIRECTIVE DISCUSSION TON SARAVIA Sep 27, 2005 ADVANCE DIRECTIVE SHARLENE SIDHU [facility] Sep 10, 2005 ADVANCE DIRECTIVE DISCUSSION FRANCE RODRIGEZ [facility] Aug 14, 2004 ADVANCE DIRECTIVE DISCUSSION REGULO AGUILAR
--- OUTSIDE RECORDS SUMMARY | 2024-07-17 16:42 | XMS_ITS ---
Author Name [facility] [place] Organization [place] Address [address] [place] [address] Care Team Providers Care Used Car Renovator Name Role Phone LORETTA HANSON Primary Care [...] [place] Aug 05, 2021 01 [id number] ELVIN WALSH PATIENT Selected Encounter This section includes the information on record at [place] for the Encounter. Date/Time Encounter Type Encounter Description Reason Pro vider Source Apr 28, 2024 12:26 PM Outpatient Encounter [facility] Encounter Template Text not used by [place] [...] 20 appointments. The data comes from all [place] treatment [facility]. Appointment Date/Time Appointment Type Appointme nt Facility Name Apr 29, 2024 01:00 PM AM[facility]ULATORY [facility]IC[facility] [place] [facility] Apr 29, 2024 02:00 PM AMBULATORY - MEDICINE [facility] [place] [place] [facility] May 13, 2024 09:30 AM AMBULATORY - MEDICINE [facility] [place] [facility] May 21, 2024 11:00 AM AMBULATORY - MEDICINE [facility] [place] [facility] May 22, 2024 01:30 PM AMBULATORY - MEDICINE [facility] [place] [facility] May 29, 2024 02:00 PM AMBULATORY - MEDICINE [facility] [place] [facility] Jun 05, 2024 10:00 AM AMBULATORY - MEDICINE [facility] [place] [facility] Jun 05, 2024 02:00 PM AMBULATORY - MEDICINE [facility] [place] [facility] Jun 05, 2024 02:45 PM AMBULATORY - NONE [facility] [place] [facility] Jun 17, 2024 08:00 AM AMBULATORY - PSYCHIATRY [facility] [place] [place] [facility] Jun 18, 2024 08:30 AM AMBULATORY - MEDICINE [facility] [place] [facility] Jun 18, 2024 11:00 AM AMBULATORY - PSYCHIATRY [facility] [place] [place] [facility] Jun 26, 2024 09:00 AM AMBULATORY - MEDICINE [facility] [place] [facility] Jul 13, 2024 09:00 AM AMBULATORY - MEDICINE [facility] [place] [facility] Jul 22, 2024 08:30 AM AMBULATORY - MEDICINE [facility] [place] [facility] Oct 15, 2024 10:00 AM AMBULATORY - MEDICINE [place] [facility] [place] [facility] Active, Pending, and Scheduled Orders This section includes a listing of several types of active, pending, and scheduled orders, including clinic medications orders, diagnostic test orders, procedure orders and consult orders; where the start date of the order is 45 days before the date of the Encounter or 45 days after the date of theEncounter. The data comes from all [place] treatment [facility]. Test Date/Time Test Type Test Details Facility Name Apr 24, 2024 12:00 AM Laboratory - Chemi stry Order OCCULT BLOOD FIT X1 SCREEN(IN-HOUSE) STOOL FECES SP [facility] Jun 03, 2024 12:30 PM Consult Order DERMATOLOG Y/NHM (OUTPT) Cons Health Information Systems Technician's Choice [facility] Social History: Smoking Status (Most current) [...] 26, 2023 10:00 AM [place]-TOBACCO FORMER USER [facility] Tobacco Use History This section includes a history of the smoking, or tobacco-related health factors, that were collected on or before the date of the Encounter. The data comes from the [place] facility where the Encounter took place. Date/Time Smoking Status/Tobacco Use Comment F acility Aug 26, 2023 10:00 AM ID-TOBACCO QUIT 15 YRS OR MORE [facility] Apr 11, 2022 11:00 AM ID-TOBACCO FORMER USER [facility] Apr 11, 2022 11:00 AM [place]-TOBACCO QUIT 15 YRS OR MORE [facility] Advance Directives: All historical and current [...] 10, 2005 ADVANCE DIRECTIVE DISCUSSION FRANCE RODRIGEZ [facility] Aug 14, 2004 ADVANCE DIRECTIVE DISCUSSION REGULO AGUILAR Encounter Notes: All associated encounter notes This section contains the clinical notes associated to the Encounter. Date/Time Encounter Note(s) Provider Source Apr 28, 2024 12:26 PM ADMINISTRATIVE NOT E: LOCAL TITLE: ADMINISTRATIVE NOTE STANDARD TITLE: ADMINISTRATIVE NOTE DATE OF NOTE: APR 28, 2024@12:26 ENTRY DATE: APR 28, 2024@12:26:38 AUTHOR: LAUREN MONTILLA EXP COSIGNER: URGENCY: STATUS: COMPLETED came to the outpatient mental health clinic looking for parts for his alpha stim device... looking for ear clips and wire. [place] can be reached at [phone]. Thank you. /roberto/ LAUREN MONTILLA ADVANCED MINE WIRER Signed: 04/28/2024 12:28 Receipt Acknowledged By: 04/28/2024 13:53 /roberto/ ELISHA RAHMAN, PhD Clinical Psychologist [facility]
--- OUTSIDE RECORDS SUMMARY | 2024-07-17 16:42 | XMS_ITS | Encounter Summary ---
Author Name [facility] of [facility] [place] [facility] [place] Organization [facility] [place] Address [address], [place] [address] Care Team Providers Care Soda Jerker Name Role Phone LORETTA HANSON Primary Care [...] [place] [facility] Aug 05, 2021 01 [id number] YOUNG WALSH PATIENT Selected Encounter This section includes the information on record at OR for the Encounter. Date/Time Encounter Type Encounter Description Reason Pro vider Source May 04, 2024 01:05 PM Outpatient Encounter TELEPHONE PRIMARY CARE IHE Encounter Template Text not used by OR Plan of Treatment: Future Appointments (+ 6 [...] 20 appointments. The data comes from all [place] treatment [facility]. Appointment Date/Time Appointment Type Appointme nt Facility Name May 13, 2024 09:30 AM AMBULATORY - MEDICINE [facility] [place] [facility] May 21, 2024 11:00 AM AMBULATORY - MEDICINE [facility] [place] [facility] May 22, 2024 01:30 PM AMBULATORY - MEDICINE [facility] [place] [facility] May 29, 2024 02:00 PM AMBULATORY - MEDICINE [facility] [place] [facility] Jun 05, 2024 10:00 AM AMBULATORY - MEDICINE [facility] [place] [facility] Jun 05, 2024 02:00 PM AMBULATORY - MEDICINE [facility] [place] [facility] Jun 05, 2024 02:45 PM AMBULATORY - NONE [facility] [place] [facility] Jun 17, 2024 08:00 AM AMBULATORY - PSYCHIATRY [facility] [place] [facility] Jun 18, 2024 08:30 AM AMBULATORY - MEDICINE [facility] [place] [facility] Jun 18, 2024 11:00 AM AMBULATORY - PSYCHIATRY [facility] [place] [facility] Jun 26, 2024 09:00 AM AMBULATORY - MEDICINE [facility] [place] [facility] Jul 13, 2024 09:00 AM AMBULATORY - MEDICINE [facility] [place] [facility] Jul 22, 2024 08:30 AM AMBULATORY - MEDICINE [facility] [place] [facility] Oct 15, 2024 10:00 AM AMBULATORY - MEDICINE [facility] [place] [facility] Active, Pending, and Scheduled Orders This section includes a listing of several types of active, pending, and scheduled orders, including clinic medications orders, diagnostic test orders, procedure orders and consult orders; where the start date of the order is 45 days before the date of the Encounter or 45 days after the date of theEncounter. The data comes from all [facility]. Test Date/Time Test Type Test Details Facility Name Apr 24, 2024 12:00 AM Laboratory - Chemi stry Order OCCULT BLOOD FIT X1 SCREEN(IN-HOUSE) STOOL FECES SP [facility] [place] [facility] Jun 03, 2024 12:30 PM Consult Order DERMATOLOG Y/NHM (OUTPT) Cons Recharger's Choice [facility] Jun 18, 2024 12:00 AM Laboratory - Chemi stry Order DRUGS OF ABUSE URINE (DRUG) SP [facility] Social History: Smoking Status (Most current) [...] Facil ity Aug 26, 2023 10:00 AM OR-TOBACCO FORMER USER [facility] Tobacco Use History This section includes a history of the smoking, or tobacco-related health factors, that were collected on or before the date of the Encounter. The data comes from the [place] facility where the Encounter took place. Date/Time Smoking Status/Tobacco Use Comment F acility Aug 26, 2023 10:00 AM OR-TOBACCO QUIT 15 YRS OR MORE [facility] Apr 11, 2022 11:00 AM OR-TOBACCO FORMER USER [facility] Apr 11, 2022 11:00 AM OR-TOBACCO QUIT 15 YRS OR MORE [facility] Advance Directives: All historical and [...] Sep 27, 2005 ADVANCE DIRECTIVE SHARLENE SIDHU [facility] Sep 10, 2005 ADVANCE DIRECTIVE DISCUSSION FRANCE RODRIGEZ [facility] Aug 14, 2004 ADVANCE DIRECTIVE DISCUSSION REGULO AGUILAR Pathology Reports: +/- 30 days of the encounter Pathology Reports For cases when an order for pathology services may have been completed prior to the date of the Encounter, the report list includes the Pathology Reports that were completed up to 30 days before dateof the Encounter. For cases when an order for pathology services may have been completed after the date of the Encounter, the report list also includes the Pathology Reports that were completed up to30 days after date of the Encounter. The data comes from all [place] treatment facilities. Date/Time Pathology Report Provider Source Jun 02, 2024 11:29 AM LR SURGICAL PATHOLOGY REPORT: LOCAL TITLE: LR SURGICAL PATHOLOGY REPORT STANDARD TITLE: PATHOLOGY DIAGNOSTIC STUDY REPORT DATE OF NOTE: JUN 02, 2024@11:29:44 ENTRY DATE: JUN 02, 2024@11:29:44 AUTHOR: MAGDALENA STOCKTON MD EXP COSIGNER: URGENCY: STATUS: COMPLETED $APHDR Reporting Lab: [facility]CLIA# [id number]] [address] [place] [id number] - - - - - - - - - - - - - - - - - - - - - - - - - - - - - - - - - - - - - - - - MEDICAL RECORD SURGICAL PATHOLOGY - - - - - - - - - - - - - - - - - - - - - - - - - - - - - - - - - - - - - - - - PATHOLOGY REPORT Accession No. [facility] 533 - - - - - - - - - - - - - - - - - - - - - - - - - - - - - - - - - - - - - - - - $TEXT Submitted by: CAITIE DONG Date obtained: May 29, 2024 14:50 - - - - - - - - - - - - - - - - - - - - - - - - - - - - - - - - - - - - - - - - Specimen (Received May 29, 2024 15:47): MIDLINE LOWER BACK - - - - - - - - - - - - - - - - - - - - - - - - - - - - - - - - - - - - - - - - BRIEF CLINICAL HISTORY: Clinicl Hx: 48 year old man with a recently found, bothersome, enlarging, worrisome, exophytic skin lesion on midline lower back. (It looks like a hemangioma?) - - - - - - - - - - - - - - - - - - - - - - - - - - - - - - - - - - - - - - - - PREOPERATIVE DIAGNOSIS: 24 533 nEW, EXOPHYTIC, BOTHERSOME SKIN LESION MIDLINE LOWER BACK - - - - - - - - - - - - - - - - - - - - - - - - - - - - - - - - - - - - - - - - OPERATIVE FINDINGS: - - - - - - - - - - - - - - - - - - - - - - - - - - - - - - - - - - - - - - - - POSTOPERATIVE DIAGNOSIS: Surgeon/physician: CAITIE Morel GO =-=-=-=-=-=-=-=-=-=-=-=-=-=- =-=-=-=-=-=-=-=-=-=-=-=-=-=- =-=-=-=-=-=-=-=-=-=-=-= - - - - - - - - - - - - - - - - - - - - - - - - - - - - - - - - - - - - - - - - PATHOLOGY REPORT Accession No. [facility] 24 533 - - - - - - - - - - - - - - - - - - - - - - - - - - - - - - - - - - - - - - - - Gross description: [facility] 25 [id number];;1;Melinda REYNA This is a [facility] case number [facility] [id number]. Received in formalin labeled with the patient's name, social security number, and midline lower back is a 1.7 x 0.6 cm skin excision excised to a depth of 0.7 cm. The specimen is oriented with a suture designating 9:00 per the surgeon. The surface displays a 0.6 x 0.5 x 0.3 cm bunn-purple, wrinkled papule abutting the 12:00 margin. The specimen is inked as follows: 9-12-3 o'clock peripheral margin blue, 3-6-9 o'clock peripheral margin orange, deep black. The specimen is entirely submitted as follows: 1: 9:00 tip 2: 3:00 tip 3-4: Body JK 06/01/2024 Skin, midline lower back: Hemangioma, completely excised. CPT code 96462 /roberto/ MAGDALENA STOCKTON MD Board Certified Dermatopathologist Signed Jun 02, 2024@11:29 Performing Laboratory: Surgical Pathology Report Performed By: [facility] [CLIA# [id number]] [address] [place] [address] $FTR - - - - - - - - - - - - - - - - - - - - - - - - - - - - - - - - - - - - - - - - (End of report) MAGDALENA STOCKTON MD, MD Date Jun 02, 2024 - - - - - - - - - - - - - - - - - - - - - - - - - - - - - - - - - - - - - - - - YOUNG REYNA JR STANDARD FORM 515 ID:[id number] SEX:M :1975 AGE: 48 LOC:CWM/NO/GS PCP: Loretta Hanson NP /roberto/ MAGDALENA STOCKTON MD Board Certified Dermatopathologist Signed: 06/02/2024 11:29 MAGDALENA STOCKTON MD [facility] Encounter Notes: All associated encounter notes This section contains the clinical notes associated to the Encounter. Date/Time Encounter Note(s) Provider Source May 04, 2024 01:05 PM ADMINISTRATIVE NOTE: LOCAL TITLE: FAX/MAIL RECEIVED STANDARD TITLE: ADMINISTRATIVE NOTE DATE OF NOTE: MAY 04, 2024@13:05 ENTRY DATE: MAY 04, 2024@13:05:56 AUTHOR: INGRID CHAMORRO EXP COSIGNER: URGENCY: STATUS: COMPLETED Document Received On: Apr Document Type: Emergency Department Note Date of Service: Apr Facility and or Provider: [facility] ED Contact Information: PCP of Record: LORETTA HANSON Next visit with PCP: 07/22/2024 08:30 CWM/NO/PODIATRY A 10/15/2024 10:00 CWM/NO/OPTOMETRY/MERHAR 04/23/2025 09:00 CWM/NO/PACT 7 Primary Care May keep copies of this document for up to 14 days and send the original for scanning. [facility] ED DOS: 05/03/24 HPI: The patient, Young Reyna,is a 48 y.o. male who presents for evaluation of Flank Pain This is a 48-year-old male with past medical history significant for esophageal stricture, DEZ, nephrolithiasis, presents to the emergency department today complaining of several hours of right-sided flank pain. The patient tells me that he has had 2 kidney stones in the past, and this feels extremely similar. He has never needed surgical management of a kidney stone, and they have both passed on their own without incident. He denies any burning with urination, urinary frequency, blood in his urine today. He denies any fevers or chills, denies any nausea or vomiting, has not had any abdominal pain, denies any changes in bowel movements, diarrhea, constipation, bloody stool, black or tarry stool. He denies any additional concern or complaint. CT Abdomen/Pelvis 3 mm stone in the right distal ureter causing mild upstream obstruction. A/P: Right Nephrolithiasis This is a 48-year-old male with past medical history significant for esophageal stricture, GERD, nephrolithiasis, presents to the emergency department today complaining of several hours of right-sided flank pain. Patient was stable with reassuring vital signs. Patient afebrile. Current differential includes nephrolithiasis, musculoskeletal pain, pyelonephritis. Laboratory evaluation revealed no leukocytosis or left shift indicate systemic infection, no acute anemia, no acute electrolyte abnormality or abnormal kidney function. Analysis did not appear infected, but had 3+ blood with too numerous to count white blood cells, increasing suspicion for nephrolithiasis. CT scan of the abdomen pelvis ordered for further evaluation, demonstrating a millimeter stone causing mild upstream hydroureteronephrosis. It is reassuring that there is no evidence of concurrent infection, no abnormal kidney function. The size of the stone is reassuring, will mostly likely pass on its own without acute intervention. I advised the patient to drink plenty of water, continue controlling pain at home with ibuprofen and Tylenol, take Flomax daily until the stone passes, and follow-up closely with urology. Advised that he return here to the emergency department with any new or concerning signs of infection, uncontrolled pain, or any other new or concerning symptoms. The patient expressed understanding, is in agreement this plan. Provided with return precautions and discharged home. Dr. Jordan was available for consultation during this case. New Medication: Tamsulosin 0.4mg daily F/U with [facility]- Consult placed HFS by PCP Alert to PCP for new medication- Vet given 10day supply from [place] pharmacy /roberto/ Ingrid ESTRADA RN CNL Primary Care RN Signed: 05/04/2024 13:12 Receipt Acknowledged By: 05/04/2024 13:27 /roberto/ Loretta Hanson DNP, CANVAS REPAIRER-BC, CNL Primary Care Nurse Practitioner INGRID CHAMORRO [facility]
--- OUTSIDE RECORDS SUMMARY | 2024-07-17 16:42 | XMS_ITS | Encounter Summary ---
Author Name [facility] [place] Organization [place] Address [address] [place] [address] Care Team Providers Care Open Source Developer Name Role Phone LORETTA HANSON Primary Care Provider DREAD Gilmore Primary Care Provider Unavailkirstina pennington Insurance Providers: All historical and current [...] Gonzalez's Name Patient's Relationship to Policy Gonzalez [facility] MEDICAID [facility] Aug 05, 2021 01 [id number] ELVIN WALSH PATIENT Selected Encounter This section includes the information on record at [place] for the Encounter. Date/Time Encounter Type Encounter Description Reason Pro vider Source Nov 21, 2023 12:00 AM Outpatient Encounter EVENT (HISTORICAL) IHE [...] MEDICINE [facility] [place] [facility] Nov 26, 2023 10:30 AM AMBULATORY - MEDICINE [facility] [place] [facility] Nov 26, 2023 10:35 AM AMBULATORY - MEDICINE [facility] [place] [facility] Dec 03, 2023 01:30 PM AMBULATORY - REHAB MEDICIN E [facility] [place] [facility] December 05, 2023 08:00 AM AMBULATORY - MEDICINE [facility] [place] [facility] December 10, 2023 03:00 PM AMBULATORY - REHAB MEDICIN E [facility] [place] [facility] December 17, 2023 03:00 PM AMBULATORY - REHAB MEDICIN E [facility] [place] [facility] December 24, 2023 03:00 PM AMBULATORY - REHAB MEDICIN E [facility] [place] [facility] January 01, 2024 11:00 AM AMBULATORY - MEDICINE [facility] [place] [facility] Jan 07, 2024 09:30 AM AMBULATORY - REHAB MEDICIN E [facility] [place] [facility] Jan 08, 2024 09:00 AM AMBULATORY - PSYCHIATRY [facility] [place] [facility] Jan 21, 2024 10:30 AM AMBULATORY - MEDICINE [facility] [place] [facility] Jan 21, 2024 11:30 AM AMBULATORY - MEDICINE [facility] [place] [facility] Apr 24, 2024 02:00 PM AMBULATORY - MEDICINE [facility] [place] [facility] Apr 29, 2024 01:00 PM AMBULATORY - MEDICINE [facility] [place] [facility] Apr 29, 2024 02:00 PM AMBULATORY - MEDICINE [facility] [place] [facility] May 13, 2024 09:30 AM AMBULATORY - MEDICINE [facility] [place] [facility] May 21, 2024 11:00 AM AMBULATORY - MEDICINE [facility] [place] [facility] May 22, 2024 01:30 PM AMBULATORY - MEDICINE [facility] [place] [facility] Lab Results: +/- 30 days of the encounter This section includes the Chemistry and Hematology Lab Results on record with [place] for the patient. Radiology Reports and Pathology Reports are provided separately, in subsequent sections. Lab Results This section contains the Chemistry/Hematology Results that were resulted 30 days before or 30 daysafter the date of the Encounter. Date/Time Source Result Type Result - Unit Interpretation Reference Range Comment Nov 11, 2023 09:[address] [facility] [id number] PGx Specimen Type: BLOOD Comment: SPECIMEN SHIPPED ON MANIFEST [id number] Ordering Provider: MAGGIE GALVAN Report Released Date/Time: Sep 13, 2023 12:46 PM Reporting Lab: [facility] [address] [facility] [id number] Performing Lab: [facility] Advance Directives: All historical and current [...] Sep 27, 2005 ADVANCE DIRECTIVE SHARLENE SIDHU [facility] Sep 10, 2005 ADVANCE DIRECTIVE DISCUSSION FRANCE RODRIGEZ [facility] Aug 14, 2004 ADVANCE DIRECTIVE DISCUSSION REGULO AGUILAR
--- OUTSIDE RECORDS SUMMARY | 2024-07-17 16:42 | XMS_ITS | Encounter Summary ---
Author Name [facility] [place] Address [address] [place] [address] Care Team Providers Care Gettering Operator Name Role Phone LORETTA HANSON Primary [...] [place] H Aug 05, 2021 01 [id number] ELVIN WALSH PATIENT Selected Encounter This section includes the information on record at [place] for the Encounter. Date/Time Encounter Type Encounter Description Reason Pro vider Source Nov 29, 2023 10:40 AM Outpatient Encounter CLINICAL PHARMACY IHE Encounter Template Text not used by [...] 20 appointments. The data comes from all [place] treatment facilities. Appointment Date/Time Appointment Type Appointme nt Facility Name Dec 03, 2023 01:30 PM AMBULATORY - REHAB MEDICIN E [facility] [place] [facility] December 05, 2023 08:00 AM AMBULATORY - MEDICINE [facility] [place] [facility] December 10, 2023 03:00 PM AMBULATORY - REHAB MEDICIN E [facility] [place] [facility] December 17, 2023 03:00 PM AMBULATORY - REHAB MEDICIN E [facility] [place] [facility] December 24, 2023 03:00 PM AMBULATORY - REHAB MEDICIN E [facility] [place] [facility] January 01, 2024 11:00 AM AMBULATORY - MEDICINE [facility] [place] [facility] Jan 07, 2024 09:30 AM AMBULATORY - REHAB MEDICIN E [facility] [place] [facility] Jan 08, 2024 09:00 AM AMBULATORY - PSYCHIATRY [facility] [place] [facility] Jan 21, 2024 10:30 AM AMBULATORY - MEDICINE [facility] [place] [facility] Jan 21, 2024 11:30 AM AMBULATORY - MEDICINE [facility] [place] [facility] Apr 24, 2024 02:00 PM AMBULATORY - MEDICINE [facility] [place] [facility] Apr 29, 2024 01:00 PM AMBULATORY - MEDICINE [facility] [place] [facility] Apr 29, 2024 02:00 PM AMBULATORY - MEDICINE [facility] [place] [facility] May 13, 2024 09:30 AM AMBULATORY - MEDICINE [facility] [place] [facility] May 21, 2024 11:00 AM AMBULATORY - MEDICINE [facility] [place] [facility] May 22, 2024 01:30 PM AMBULATORY - MEDICINE [facility] [place] [facility] May 29, 2024 02:00 PM AMBULATORY - MEDICINE [facility] [place] [facility] Lab Results: +/- 30 days of [...] Range Comment Nov 11, 2023 09:54 AM [facility] [id number] PGx Specimen Type: BLOOD Comment: SPECIMEN SHIPPED ON MANIFEST [id number] Ordering Provider: MAGGIE GALVAN Report Released Date/Time: Sep 13, 2023 12:46 PM Reporting Lab: [address] [address] Performing Lab: [facility] Advance Directives: All historical and current Section Date Range: From patient's date of to the date document was created. This section includes ALL of a patient's completed or amended [place] Advance and Rescinded Directives. The entries below indicate that a directive exists for the patient, but an actual copy is not included with this document. The data comes from all [place] facilities. Date Advance Directives Provider Source May 16, 2011 ADVANCE DIRECTIVE DISCUSSION TON SARAVIA Sep 27, 2005 ADVANCE DIRECTIVE SHARLENE SIDHU [facility] Sep 10, 2005 ADVANCE DIRECTIVE DISCUSSION FRANCE RODRIGEZ [facility] Aug 14, 2004 ADVANCE DIRECTIVE DISCUSSION REGULO AGUILAR Encounter Notes: All associated encounter notes This section contains the clinical notes associated to the Encounter. Date/Time Encounter Note(s) Provider Source Nov 29, 2023 10:40 AM PHARMACY CONSULT: LOCAL TITLE: CONSULT /PHARMACOGENOMICS STANDARD TITLE: PHARMACY CONSULT DATE OF NOTE: NOV 29, 2023@10:40 ENTRY DATE: NOV 29, 2023@10:40:54 AUTHOR: ESVIN BUCKNER COSIGNER: URGENCY: STATUS: COMPLETED This patient's pharmacogenomics test results have returned and can be viewed in detail via [facility] in [facility]. A brief summary of the results is available under the Notes tab [facility]able [facility] or [facility]. Please don't hesitate to contact me via email ( ) to help assist in evaluating results of the pharmacogenomics test. In addition to this note in [facility], I sent an e-mail to the ordering provider to inform them that the results are available. /roberto/ ESVIN BUCKNER PHARMD CLINICAL PHARMACIST Signed: 11/29/2023 10:41 ESVIN BUCKNER [facility]
--- OUTSIDE RECORDS SUMMARY | 2024-07-17 16:42 | XMS_ITS | Encounter Summary ---
Author Name [facility] [place] Address [address] [place] [address] Care Team Providers Care Head Operator Sulfide Name Role Phone LORETTA HANSON Primary Care [...] Gonzalez's Name Patient's Relationship to Policy Gonzalez [facility] MEDICAID [facility] Aug 05, 2021 01 [id number] ELVIN WALSH PATIENT Selected Encounter This section includes the information on record at [place] for the Encounter. Date/Time Encounter Type Encounter Description Reason Pro vider Source Nov 06, 2023 12:00 AM Outpatient Encounter EVENT (HISTORICAL) [...] - MEDICINE [place] [facility] [place] [facility] Nov 26, 2023 10:30 AM AMBULATORY - MEDICINE [place] [facility] [place] [facility] Nov 26, 2023 10:35 AM AMBULATORY - MEDICINE [place] [facility] [place] [facility] Dec 03, 2023 01:30 PM AMBULATORY - REHAB MEDICIN E [facility] [place] [facility] December 05, 2023 08:00 AM AMBULATORY - MEDICINE [facility] [place] [facility] December 10, 2023 03:00 PM AMBULATORY - REHAB MEDICIN E [facility] [place] [facility] December 17, 2023 03:00 PM AMBULATORY - REHAB MEDICIN E [facility] [place] [facility] December 24, 2023 03:00 PM AMBULATORY - REHAB MEDICIN E [facility] [place] [facility] January 01, 2024 11:00 AM AMBULATORY - MEDICINE [facility] [place] [facility] Jan 07, 2024 09:30 AM AMBULATORY - REHAB MEDICIN E [facility] [place] [facility] Jan 08, 2024 09:00 AM AMBULATORY - PSYCHIATRY [facility] [place] [facility] Jan 21, 2024 10:30 AM AMBULATORY - MEDICINE [facility] [place] [facility] Jan 21, 2024 11:30 AM AMBULATORY - MEDICINE [facility] [place] [facility] Apr 24, 2024 02:00 PM AMBULATORY - MEDICINE [facility] [place] [facility] Apr 29, 2024 01:00 PM AMBULATORY - MEDICINE [facility] [place] [facility] Apr 29, 2024 02:00 PM AMBULATORY - MEDICINE [facility] [facility] Lab Results: +/- 30 days of [...] Range Comment Nov 11, 2023 09:54 AM [facility] [id number] PGx Specimen Type: BLOOD Comment: SPECIMEN SHIPPED ON MANIFEST [id number] Ordering Provider: MAGGIE GALVAN Report Released Date/Time: Sep 13, 2023 12:46 PM Reporting Lab: [facility] [address] [facility] [id number] Performing Lab: [facility] Advance Directives: All historical and current Section [...] Sep 27, 2005 ADVANCE DIRECTIVE SHARLENE SIDHU [facility] Sep 10, 2005 ADVANCE DIRECTIVE DISCUSSION FRANCE RODRIGEZ [facility] Aug 14, 2004 ADVANCE DIRECTIVE DISCUSSION REGULO AGUILAR
--- OUTSIDE RECORDS SUMMARY | 2024-07-17 16:42 | XMS_ITS | Encounter Summary ---
Author Name Department [place] Organization [place] Address [address] [place] [address] Care Team Providers Care Director Oracle Database Name Role Phone LORETTA HASNON Primary Care Provider DREAD Gilmore Primary Care [...] [place] Aug 05, 2021 01 [id number] ELVIN WALSH PATIENT Selected Encounter This section includes the information on record at [place] for the Encounter. Date/Time Encounter Type Encounter Description Reason Provider Source Apr 29, 2024 02:00 PM OFFICE O/P EST LOW 20 MIN PRIMARY CARE/MEDICINE ICD-10-CM J06.9 Acute upper respiratory infection, unspecified GANGA DAVID Zahra Encounter Template Text not used by [place] Assessments - Encounter Diagnoses This section includes the primary and secondary diagnoses documented for the Encounter. Date/Time Primary/Secondary Diagnosis Diagnosis Name Provider Source Apr 29, 2024 02:16 PM PRIMARY Acute upper respiratory infection, unspecified GANGA DAVID [place] [facility] [place] [facility] Plan of Treatment: Future Appointments (+ 6 months) and Future Tests (+/- 45 days) The Plan of Treatment section includes future care activities for the [facility] [place] [facility] This section includes future appointments and future orders which are active, pending or scheduled. Future Appointments This section includes appointments that were scheduled to occur 6 months from the date of the Encounter, up to a maximum of 20 appointments. The data comes from all [place] treatment facilities. Appointment Date/Time Appointment Type Appointme nt Facility Name May 13, 2024 09:30 AM AMBULATORY - MEDICINE [place] [facility] [facility] May 21, 2024 11:00 AM AMBULATORY - MEDICINE [place] [facility] [facility] May 22, 2024 01:30 PM AMBULATORY - MEDICINE [place] [facility] [facility] May 29, 2024 02:00 PM AMBULATORY - MEDICINE [place] [facility] [facility] Jun 05, 2024 10:00 AM AMBULATORY - MEDICINE [place] [facility] [facility] Jun 05, 2024 02:00 PM AMBULATORY - MEDICINE [place] [facility] [facility] Jun 05, 2024 02:45 PM AMBULATORY - NONE [place] [facility] [place] [facility] Jun 17, 2024 08:00 AM AMBULATORY - PSYCHIATRY [place] [facility] [place] [facility] Jun 18, 2024 08:30 AM AMBULATORY - MEDICINE [place] [facility] [facility] Jun 18, 2024 11:00 AM AMBULATORY - PSYCHIATRY [place] [facility] [place] [facility] Jun 26, 2024 09:00 AM AMBULATORY - [place]ICINE [place] [facility] [facility] Jul 13, 2024 09:00 AM AMBULATORY - MEDICINE [place] [facility] [facility] Jul 22, 2024 08:30 AM AMBULATORY - MEDICINE [place] [facility] [facility] Oct 15, 2024 10:00 AM AMBULATORY - MEDICINE [place] [facility] [facility] Active, Pending, and Scheduled Orders This section includes a listing of several types of active, pending, and scheduled orders, including clinic medications orders, diagnostic test orders, procedure orders and consult orders; where the start date of the order is 45 days before the date of the Encounter or 45 days after the date of theEncounter. The data comes from all [place] treatment facilities. Test Date/Time Test Type Test Details Facility Name Apr 24, 2024 12:00 AM Laboratory - Chemi stry Order OCCULT BLOOD FIT X1 SCREEN(IN-HOUSE) [facility] Jun 03, 2024 12:30 PM Consult Order DERMATOLOG Y/NHM (OUTPT) Cons Epoxy Coatings Installer's [facility] Vital Signs: All taken on the encounter date This section contains inpatient and outpatient Vital Signs collected on the date of the Encounter. Date/Time Temperature Pulse Blood Pressure Respiratory Rate SP02 Pain Height Weight Body Mass Index Source Apr 29, 2024 01:23 PM 98.2 77 118/86 16 2 [facility] Social History: Smoking Status (Most current) and Tobacco Use (All prior to encounter date) This section includes the most current, and the historical, smoking and tobacco- related health factors from the [place] facility where the Encounter took place. Current Smoking Status This section includes the most current smoking, or tobacco-related health factor, from the [place] facility where the Encounter took place. Date/Time Current Smoking Status Comment Facil ity Aug 26, 2023 10:00 AM [place]-TOBACCO FORMER USER [facility] Tobacco Use History This section includes a history of the smoking, or tobacco-related health factors, that were collected on or before the date of the Encounter. The data comes from the [place] facility where the Encounter took place. Date/Time Smoking Status/Tobacco Use Comment F acility Aug 26, 2023 10:00 AM [place]-TOBAC[place] QUIT 15 YRS OR MORE [facility] Apr 11, 2022 11:00 AM [place]-TOBACCO FOR[facility] Apr 11, 2022 11:00 AM [place]-TOBAC[place] QUIT 15 YRS OR MORE [facility] Advance Directives: All historical and current Section Date Range: From patient's date of to the date document was created. This section includes ALL of a patient's completed or amended [place] Advance and Rescinded Directives. The entries below indicate that a directive exists for the patient, but an actual copy is not included with this document. The data comes from all [place] facilities. Date Advance Directives Provider Source May 16, 2011 ADVANCE DIRECTIVE DISCUSSION [place] Sep 27, 2005 ADVANCE DIRECTIVE NAHUMSHARLENE Lo [facility] Sep 10, 2005 ADVANCE DIRECTIVE DISCUSSION FRANCE RODRIGEZ [facility] Aug 14, 2004 ADVANCE DIRECTIVE DISCUSSION REGULO AGUILAR [place] Encounter Notes: All associated encounter notes This section contains the clinical notes associated to the Encounter. Date/Time Encounter Note(s) Provider Source Apr 29, 2024 01:24 PM PHYSICIAN DIGITAL MEDIA COORDINATOR NOTE: LOCAL TITLE: PA NOTE STANDARD TITLE: PHYSICIAN DIGITAL MEDIA COORDINATOR NOTE DATE OF NOTE: APR 29, 2024@13:24 ENTRY DATE: APR 29, 2024@13:24:40 AUTHOR: GANGA DAVID EXP COSIGNER: URGENCY: STATUS: COMPLETED SICK CALL VISIT HPI: 48 year old male with below noted PMHx presents for 1+ week of cough/cold symptoms after exposure during a group meeting. He started with a bad sore throat but that has now resolved. He has tested multiple times and has been negative for Covid x 4. He reports using OTC decongestants with minimal effect (Phenyl ephedrine ). No fever, chills, CP or SOB. Nasal congestion bothersome as is cough (scant mucus yellow). REVIEW OF SYSTEMS: A 12 point review [...] Gastro-Esophageal Reflux Dis 04/11/2022 LORETTA HANSON Anxiety ([facility] [id number]) F41.9 04/11/2022 LORETTA HANSON Hyperlipidemia ([facility] [id number]) E78.5 04/11/2022 LORETTA HANSON Fatty liver K76.0 04/11/2022 LORETTA HANSON Family history of diabetes mellitus 04/11/2022 LORETTA HANSON Meds: Active Outpatient Medications (including Supplies): AZELASTINE 137MCG/SPRAY 200D NASAL INHL SPRAY 1 SPRAY INTO ACTIVE EACH NOSTRIL ONCE DAILY FOR SEASONAL RUNNY NOSE CHOLECALCIF 50MCG (D3-2,000UNIT) TAB TAKE ONE TABLET BY ACTIVE MOUTH ONCE DAILY FOR VITAMIN SUPPLEMENTATION DM 10/GUAIFENESN 100MG/5ML (AF & SF) LIQ TAKE 5 MLS BY PENDING MOUTH EVERY 6 HOURS NEEDED OMEPRAZOLE 20MG EC CAP TAKE ONE CAPSULE BY MOUTH ONCE ACTIVE DAILY Non-VA PROBIOTIC (CULTURELLE DIGESTIVE DAILY) CAP/TAB BY ACTIVE MOUTH Allergies: Patient has answered NKA Date Vital Measurement Qualifiers 04/29/2024 13:23 Temp F (C) 98.2 (36.8) Pulse 77 Respir 16 BP 118/86 Pain 2 FOCUSED EXAMINATION GEN: WD, non-toxic HEENT: NC/AT EAC's: Patent bilaterally TM's: clear bilaterally OP: patent, uvula midline Neck: supple, No LAD Lungs: CTAB COR: RRR MDM: No clinical evidence of acute bacterial infection or airway compromise. DM/Guaifenesin syrup as prescribed. Continue with fluids/rest. If no improvement, RTC. F/U PCP otherwise. ASSESSMENT/PLAN Acute upper Respiratory Infection, unspecified as above able to verbalize understanding of plan of care and agrees. >> MEDICATIONS Reviewed and reconciled with [place] /es/ GANGA GIVENS MS,PA-C PHYSICIAN DIGITAL MEDIA COORDINATOR Signed: 04/29/2024 14:21 GANGA DAVID [facility]
--- OUTSIDE RECORDS SUMMARY | 2024-07-17 16:42 | XMS_ITS | Encounter Summary ---
Author Name Department [place] Organization [place] Address [address], [place] [address] Care Team Providers Care Skid Strapper Name Role Phone LORETTA HANSON Primary Care [...] [place] Aug 05, 2021 01 [id number] ELVIN WALSH PATIENT Selected Encounter This section includes the information on record at [place] for the Encounter. Date/Time Encounter Type Encounter Description Reason Pro vider Source Apr 24, 2024 12:00 AM Outpatient Encounter EVENT (HISTORICAL) [...] - MEDICINE [facility] [place] [facility] Apr 29, 2024 02:00 PM AMBULATORY - MEDICINE [facility] [place] [facility] May 13, 2024 09:30 AM AMBULATORY - MEDICINE [facility] [place] [facility] May 21, 2024 11:00 AM AMBULATORY - MEDICINE [facility] [place] [facility] May 22, 2024 01:30 PM AMBULATORY - MEDICINE [facility] [place] [facility] May 29, 2024 02:00 PM AMBULATORY - MEDICINE [facility] [place] [facility] Jun 05, 2024 10:00 AM AMBULATORY - MEDICINE [facility] [place] [facility] Jun 05, 2024 02:00 PM AMBULATORY - MEDICINE [facility] [place] [facility] Jun 05, 2024 02:45 PM AMBULATORY - NONE [place] [facility] [place] [facility] Jun 17, 2024 08:00 AM AMBULATORY - PSYCHIATRY [facility] [place] [facility] Jun 18, 2024 08:30 AM AMBULATORY - MEDICINE [facility] [place] [facility] Jun 18, 2024 11:00 AM AMBULATORY - PSYCHIATRY [facility] [place] [facility] Jun 26, 2024 09:00 AM AMBULATORY - MEDICINE [place] [facility] [place] [facility] Jul 13, 2024 09:00 AM AMBULATORY - MEDICINE [place] [facility] [place] [facility] Jul 22, 2024 08:30 AM AMBULATORY - MEDICINE [place] [facility] [facility] Oct 15, 2024 10:00 AM AMBULATORY - MEDICINE [place] [facility] [facility] Active, Pending, and Scheduled Orders This section includes a listing of several types of active, pending, and scheduled orders, including clinic medications orders, diagnostic test orders, procedure orders and consult orders; where the start date of the order is 45 days before the date of the Encounter or 45 days after the date of theEncounter. The data comes from all [place] treatment [facility]. Test Date/Time Test Type Test Details Facility Name Apr 24, 2024 12:00 AM Laboratory - Chemi stry Order OCCULT BLOOD FIT X1 SCREEN(IN-HOUSE) STOOL FECES SP [facility] Jun 03, 2024 12:30 PM Consult Order DERMATOLOG Y/NHM (OUTPT) Cons Pug Mill Operator's Choice [facility] Vital Signs: All taken on the encounter date This section contains inpatient and outpatient Vital Signs collected on the date of the Encounter. Date/Time Temperature Pulse Blood Pressure Respiratory Rate SP02 Pain Height Weight Body Mass Index Source Apr 24, 2024 01:56 PM 98.2 86 130/88 20 98 0 66 244 39 [facility] Social History: Smoking Status (Most current) [...] 26, 2023 10:00 AM [place]-TOBACCO FORMER USER [facility] Tobacco Use History This section includes a history of the smoking, or tobacco-related health factors, that were collected on or before the date of the Encounter. The data comes from the [place] facility where the Encounter took place. Date/Time Smoking Status/Tobacco Use Comment F acility Aug 26, 2023 10:00 AM [place]-TOBACCO QUIT 15 YRS OR MORE [facility] Apr 11, 2022 11:00 AM [place]-TOBACCO FORMER USER [facility] Apr 11, 2022 11:00 AM [place]-TOBACCO QUIT 15 YRS OR MORE [facility] Advance Directives: All historical and current [...] Sep 27, 2005 ADVANCE DIRECTIVE SHARLENE SIDHU [facility] Sep 10, 2005 ADVANCE DIRECTIVE DISCUSSION FRANCE RODRIGEZ [facility] Aug 14, 2004 ADVANCE DIRECTIVE DISCUSSION REGULO AGUILAR
--- OUTSIDE RECORDS SUMMARY | 2024-07-17 16:42 | XMS_ITS ---
Author Name [place] Address [address] [place] [address] Care Team Providers Care Dandy Tender Name Role Phone LORETTA HANSON Primary Care [...] Gonzalez's Name Patient's Relationship to Policy Gonzalez [facility] MEDICAID [facility] Aug 05, 2021 01 [id number] ELVIN WALSH PATIENT Selected Encounter This section includes the information on record at [place] for the Encounter. Date/Time Encounter Type Encounter Description Reason Provider Source Nov 06, 2023 02:10 PM MTMS BY PHARM SLICE CUTTING MACHINE OPERATOR HELPER 15 MIN CLINICAL PHARMACY ICD-10-CM Z71.89 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ed counseling ESVIN BUCKNER Encounter Template Text not used by [place] Assessments - Encounter Diagnoses This section includes the primary and secondary diagnoses documented for the Encounter. Date/Time Primary/Secondary Diagnosis Diagnosis Name Provider Source Nov 06, 2023 02:11 PM PRIMARY 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ed counseling ESVIN BUCKNER [facility] Plan of Treatment: Future Appointments (+ 6 months) and Future Tests (+/- 45 days) The Plan of Treatment section includes future care activities for the patient from all [place] treatment[facility]. This section includes future appointments and future orders which are active, pending or scheduled. Future Appointments This section includes appointments that were scheduled to occur 6 months from the date of the Encounter, up to a maximum of 20 appointments. The data comes from all [place] treatment facilities. Appointment Date/Time Appointment Type Appointme nt Facility Name Nov 26, 2023 09:30 AM AMBULATORY - MEDICINE [place] [facility] [facility] Nov 26, 2023 10:30 AM AMBULATORY - MEDICINE [place] [facility] [place] [facility] Nov 26, 2023 10:35 AM AMBULATORY - MEDICINE [place] [facility] [place] [facility] Dec 03, 2023 01:30 PM AMBULATORY - REHAB MEDICIN E [place] [facility] [place] [facility] December 05, 2023 08:00 AM AMBULATORY - MEDICINE [place] [facility] [place] [facility] December 10, 2023 03:00 PM AMBULATORY - REHAB MEDICIN E [place] [facility] [place] [facility] December 17, 2023 03:00 PM AMBULATORY - REHAB MEDICIN E [place] [facility] [place] [facility] December 24, 2023 03:00 PM AMBULATORY [...] [facility] [place] [facility] Lab Results: +/- 30 days of the encounter This section includes the Chemistry and Hematology Lab Results on record with [place] for the patient. Radiology Reports and Pathology Reports are provided separately, in subsequent sections. Lab Results This section contains the Chemistry/Hematology Results that were resulted 30 days before or 30 daysafter the date of the Encounter. Date/Time Source Result Type Result - Unit Interpretation Reference Range Comment Nov 11, 2023 09:54 AM [facility] [id number] PGx Specimen Type: BLOOD Comment: SPECIMEN SHIPPED ON MANIFEST [id number] Ordering Provider: MAGGIE GALVAN Report Released Date/Time: Sep 13, 2023 12:46 PM Reporting Lab: [facility] [address] [facility] [id number] Performing Lab: [facility] Advance Directives: All historical and current Section Date Range: From patient's date of to the date document was created. This section includes ALL of a patient's completed or amended [place] Advance and Rescinded Directives. The entries below indicate that a directive exists for the patient, but an actual copy is not included with this document. The data comes from all [place] facilities. Date Advance Directives Provider Source May 16, 2011 ADVANCE DIRECTIVE DISCUSSION TON SARAVIA Sep 27, 2005 ADVANCE DIRECTIVE SHARLENE SIDHU [facility] Sep 10, 2005 ADVANCE DIRECTIVE DISCUSSION FRANCE RODRIGEZ [facility] Aug 14, 2004 ADVANCE DIRECTIVE DISCUSSION REGULO AGUILAR Encounter Notes: All associated encounter notes This section contains the clinical notes associated to the Encounter. Date/Time Encounter Note(s) Provider Source Nov 06, 2023 02:14 PM HEMATOLOGY AND ONC OLOGY NOTE: LOCAL TITLE: PHARMACOGENOMICS NOTE-HISTORICAL STANDARD TITLE: HEMATOLOGY AND ONCOLOGY NOTE DATE OF NOTE: NOV 06, 2023@14:14 ENTRY DATE: NOV 06, 2023@14:14:57 AUTHOR: ESVIN BUCKNER COSIGNER: URGENCY: STATUS: COMPLETED [place] Pharmacogenomic Testing for Veterans (PHASER) The overall goal of pharmacogenomic (PGx) testing is to improve the efficacy and reduce the toxicity of commonly prescribed medications. Automated clinical decision support is used to guide PGx results interpretation and use of test results. To learn more about PGx testing, please visit: [email or web address] CONTRAINDICATION - PGX testing is not advisable and PGx results may not be interpretable for patients who are recipients of a liver transplant, or who have undergone allogeneic bone marrow transplant. Instead, order a Pharmacogenomics E-consult. HERITABLE DISEASE IMPLICATIONS - PGx testing may reveal heritable disease information. Patients and the ordering provider will be notified of any implications should they arise. For current testing panel details and which (if any) genes currently have heritable disease implications, visit: [email or web address] se I have discussed the plan to order the PHASER Pgx testing panel with this patient. I have explained the test's risks, benefits, alternatives, limitations, and potential heritable disease implications. I have given the patient an opportunity to ask questions regarding pharmacogenomic testing and I have satisfactorily addressed them. The patient orally consented to the PHASER pharmacogenomic test panel. /amanda BUCKNER PHARMD CLINICAL PHARMACIST Signed: 11/06/2023 14:15 ESVIN BUCKNER [facility] Nov 06, 2023 02:11 PM PHARMACY CONSULT: LOCAL TITLE: CONSULT /PHARMACOGENOMICS STANDARD TITLE: PHARMACY CONSULT DATE OF NOTE: NOV 06, 2023@14:11 ENTRY DATE: NOV 06, 2023@14:11:09 AUTHOR: ESVIN BUCKNER EXP COSIGNER: URGENCY: STATUS: COMPLETED Spoke to the patient and obtained verbal consent for PHASER Testing. Educated the patienton purpose of pharmacogenomics testing and instructions on how to obtain blood testing for PHASER at [facility]. It looks like lab order has already been entered for this patient. I will add an addendum to this consult once the PHASER results return (typically 7-14 days after the blood draw). /amanda BUCKNER PHARMD CLINICAL PHARMACIST Signed: 11/06/2023 14:11 ESVIN BUCKNER [facility]
--- OUTSIDE RECORDS SUMMARY | 2024-07-17 16:42 | XMS_ITS | Encounter Summary ---
Author Name [facility] [place] [facility] [place] Address [address] [place] [address] Care Team Providers Care Campaign Management Specialist Name Role Phone LORETTA HANSON Primary Care [...] Gonzalez's Name Patient's Relationship to Policy Gonzalez [facility] MEDICAID [facility] Aug 05, 2021 01 [id number] ELVIN WALSH PATIENT Selected Encounter This section includes the information on record at [place] for the Encounter. Date/Time Encounter Type Encounter Description Reason Pro vider Source Nov 21, 2023 05:01 PM Outpatient Encounter ADMIN PAT ACTIVTIES (MASNONCT) [facility] Encounter Template Text not used by VA [...] [place] [facility] Nov 26, 2023 10:30 AM AMBULATORY - MEDICINE [place] [facility] [place] [facility] Nov 26, 2023 10:35 AM AMBULATORY - MEDICINE [place] [facility] [place] [place] [facility] Dec 03, 2023 01:30 PM AMBULATORY - REHAB MEDICIN E [facility] [place] [facility] December 05, 2023 08:00 AM AMBULATORY - MEDICINE [place] [facility] December 10, 2023 03:00 PM AMBULATORY - REHAB MEDICIN E [facility] [place] [facility] December 17, 2023 03:00 PM AMBULATORY - REHAB MEDICIN E [facility] [place] [facility] December 24, 2023 03:00 PM AMBULATORY - REHAB MEDICIN E [facility] [place] [facility] January 01, 2024 11:00 AM AMBULATORY - MEDICINE [place] [facility] [place] [facility] Jan 07, 2024 09:30 AM AMBULATORY - REHAB MEDICIN E [facility] [place] [facility] Jan 08, 2024 09:00 AM AMBULATORY - PSYCHIATRY [facility] [place] [facility] Jan 21, 2024 10:30 AM AMBULATORY - MEDICINE [place] [facility] [place] [place] [facility] Jan 21, 2024 11:30 AM AMBULATORY - MEDICINE [place] [facility] [place] [place] [facility] Apr 24, 2024 02:00 PM AMBULATORY - MEDICINE [place] [facility] [place] [place] [facility] Apr 29, 2024 01:00 PM AMBULATORY - MEDICINE [place] [facility] [place] [facility] Apr 29, 2024 02:00 PM AMBULATORY - MEDICINE [place] [facility] [place] [facility] May 13, 2024 09:30 AM AMBULATORY - MEDICINE [place] [facility] [place] [facility] May 21, 2024 11:00 AM AMBULATORY - MEDICINE [place] [facility] [place] [place] [facility] May 22, 2024 01:30 PM AMBULATORY - [...] Range Comment Nov 11, 2023 09:54 AM [facility] [id number] PGx Specimen Type: BLOOD Comment: SPECIMEN SHIPPED ON MANIFEST [id number] Ordering Provider: MAGGIE GALVAN Report Released Date/Time: Sep 13, 2023 12:46 PM Reporting Lab: [address] [address] Performing Lab: [facility] Advance Directives: All historical and current [...] Sep 27, 2005 ADVANCE DIRECTIVE SHARLENE SIDHU [facility] Sep 10, 2005 ADVANCE DIRECTIVE DISCUSSION FRANCE RODRIGEZ [facility] Aug 14, 2004 ADVANCE DIRECTIVE DISCUSSION REGULO AGUILAR Encounter Notes: All associated encounter notes This section contains the clinical notes associated to the Encounter. Date/Time Encounter Note(s) Provider Source Nov 21, 2023 05:01 PM HEMATOLOGY AND ONC OLOGY NOTE: LOCAL TITLE: PHARMACOGENOMICS NOTE STANDARD TITLE: HEMATOLOGY AND ONCOLOGY NOTE DATE OF NOTE: NOV 21, 2023@17:01 ENTRY DATE: NOV 21, 2023@17:01:42 AUTHOR: MILAD ROCHA COSIGNER: URGENCY: STATUS: COMPLETED [place] Pharmacogenomic Testing for Veterans (PHASER) A basic pharmacogenomic testing panel was performed as part of the PHASER Program. A copy of the patient-facing pharmacogenomic report has been provided to the patient. Test results will be incorporated into the electronic health record along with clinical decision support tools to guide interpretation and appropriate use of test results. CONTRAINDICATED - Pharmacogenomic results may not be interpretable in patient who are recipients of a liver transplant or who have undergone allogeneic bone marrow transplant. It is not advisable for these patients to undergo pharmacogenomic testing; instead, order a Pharmacogenomics E-consult. HERITABLE DISEASE ALERT - Pharmacogenomic testing may reveal heritable disease information. In such cases, the provider has been notified in a separate communication of the implications and recommendations for further action, if indicated, and the patient has been mailed basic information with their test results letter. For current testing panel details and which (if any) genes currently have heritable disease implications, visit: [email or web address] HOW TO USE THIS INFORMATION - * REFER TO THE PATIENT'S PGx RESULTS REPORT IN [employer] for the list of medications impacted by the PGx panel administered and relevant recommendations or alternatives based on the patient's PGx test results. * FOR MEDICINES PRESCRIBED AT THE TIME OF PGx TESTING, consider modifying prescription therapy if the patient is NOT responding as desired. * FOR MEDICINES PRESCRIBED IN THE FUTURE, automated clinical decision support will flag actionable drug-gene interactions HELP & MORE INFORMATION - * For clinical assistance, place a Pharmacogenomics e-consult * Technical assistance can be accessed by messaging or emailing: * More information on the [place] PHASER Pharmacogenomic Testing Program can be found at: [email or web address] LOCATION OF FULL RESULTS REPORT: The full test results report PDF including impacted medications, individual genotypes, and drug-gene interactions can be found in [employer] under the following - PROC DT date: 11/11/2023 TEST RESULTS (15-GENE PANEL): Gene: ABCG2 Result: Decreased function Gene: CYP2B6 Result: Intermediate metabolizer Gene: CYP2C Result: Low sensitivity Gene: [id number] Result: Rapid metabolizer Gene: CYP2C9 Result: Intermediate metabolizer Gene: CYP2D6 Result: Normal metabolizer Gene: CY Result: Poor metabolizer Gene: CYP4F2 Result: Reduced activity Gene: DPYD Result: Normal metabolizer Gene: G6PD Result: Normal function Gene: NUDT15 Result: Normal metabolizer Gene: [id number] Result: Normal function Gene: TPMT Result: Normal metabolizer Gene: UGT1A1 Result: Intermediate metabolizer Gene: VKORC1 Result: Intermediate warfarin sensitivity HLA-B *57:01 screen Negative Low Risk There may be a delay in the availability of the PGx results report in [employer]. If immediate access to the patient report is needed, please navigate to [employer] ([employer]) - Community Health Summaries & Documents Widget to find Roly's report under PharmGx Panel. /roberto/ MILAD ROCHA Signed: 11/21/2023 17:03 MILAD ROCHA [facility]
--- OUTSIDE RECORDS SUMMARY | 2024-07-17 16:43 | XMS_ITS | Encounter Summary ---
Author Name [facility] [place] [facility] [place] Address [address] [place] [address] Care Team Providers Care Supervisor Public Health Nursing Name Role Phone LORETTA HANSON Primary Care [...] [place] [facility] Aug 05, 2021 01 [phone] [id number] ELVIN WALSH PATIENT Selected Encounter This section includes the information on record at [place] for the Encounter. Date/Time Encounter Type Encounter Description Reason Provider Source May 13, 2024 09:30 AM OFF/OP EST DECEMBER X REQ PHY/QHP PRIMARY CARE/MEDICINE ICD-10-CM Z71.89 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ed counseling INES CHAMORRO IH[facility]ahra Encounter Template Text not used by VA Assessments - Encounter Diagnoses This section includes the primary and secondary diagnoses documented for the Encounter. Date/Time Primary/Secondary Diagnosis Diagnosis Name Provider Source May 13, 2024 09:28 AM PRIMARY 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ed counseling INES CHAMORRO [facility] [place] [place] [facility] Plan of Treatment: Future Appointments (+ 6 months) and Future Tests (+/- 45 days) The Plan of Treatment section includes future care activities for the patient from all [place] [facility]. This section includes future appointments and future orders which are active, pending or scheduled. Future Appointments This section includes appointments that were scheduled to occur 6 months from the date of the Encounter, up to a maximum of 20 appointments. The data comes from all [place] treatment facilities. Appointment Date/Time Appointment Type Appointme nt Facility Name May 21, 2024 11:00 AM AMBULATORY - MEDICINE [place] [facility] May 22, 2024 01:30 PM AMBULATORY - MEDICINE [place] [facility] May 29, 2024 02:00 PM AMBULATORY - MEDICINE [place] [facility] Jun 05, 2024 10:00 AM AMBULATORY - MEDICINE [place] [facility] Jun 05, 2024 02:00 PM AMBULATORY - MEDICINE [place] [facility] Jun 05, 2024 02:45 PM AMBULATORY - NONE [place] [facility] Jun 17, 2024 08:00 AM AMBULATORY - PSYCHIATRY [place] [facility] Jun 18, 2024 08:30 AM AMBULATORY - MEDICINE [place] [facility] Jun 18, 2024 11:00 AM AMBULATORY - PSYCHIATRY [place] [place] [facility] Jun 26, 2024 09:00 AM AMBULATORY - MEDICINE [place] [facility] Jul 13, 2024 09:00 AM AMBULATORY - MEDICINE [place] [facility] Jul 22, 2024 08:30 AM AMBULATORY - MEDICINE [place] [facility] Oct 15, 2024 10:00 AM AMBULATORY - MEDICINE [place] [facility] Active, Pending, and Scheduled Orders This section includes a listing of several types of active, pending, and scheduled orders, including clinic medications orders, diagnostic test orders, procedure orders and consult orders; where the start date of the order is 45 days before the date of the Encounter or 45 days after the date of theEncounter. The data comes from all [place] treatment facilities. Test Date/Time Test Type Test Details Facility Name Apr 24, 2024 12:00 AM Laboratory - [employer]i [employer] Order OCCULT BLOOD FIT X1 SCREEN(IN-HOUSE) STOOL FECES SP [facility] Jun 03, 2024 12:30 PM Consult Order DERMATOLOG Y/[facility] (OUTPT) Cons Organ Recovery Coordinator's Choice [facility] Jun 18, 2024 12:00 AM Laboratory - Chemi stry Order DRUGS OF ABUSE URINE (DRUG) SP [facility] Lab Results: +/- 30 days of the [...] Result - Unit Interpretation Reference Range Comment Jun 05, 2024 02:[address] [facility] [address]/GC DNA PANEL(IN-HOUSE) Specimen Type: URINE Comment: Test performed on the [employer] Genexpert. A negative test results does not exclude the possibility of infection because results may be affected by improper specimen collection, concurrent antibiotic therapy, or the number of organisms in the specimen which may be below the sensitivity of the test. Ordering Provider: MAR HANSON Report Released Date/Time: Jun 05, 2024 02:02 PM Reporting Lab: [address] [address] Performing Lab: [address] [address] GC PCR NOT DETECTED Not Detected CT PCR NOT DETECTED Not Detected Jun 05, 2024 02:23 PM [facility] MICROSCOPIC AUTOMATED, URINE Specimen Type: URINE Comment: If Glucose = >500 and Ketones are positive, please alert the Physician. Ordering Provider: MAR HANSON Report Released Date/Time: Jun 05, 2024 02:02 PM Reporting Lab: [address] [address] Performing Lab: [facility] [address] [facility] [address] UA WBC 0-5 /[HPF] 0-5 UA MUCUS FEW /[LPF] Trace UA RBC 11-20 /[HPF] H 0-3 Jun 05, 2024 02:23 PM [facility] URINALYSIS CLEAN CATCH Specimen Type: URINE Comment: If Glucose = >500 and Ketones are positive, please alert the Physician. Ordering Provider: MAR HANSON Report Released Date/Time: Jun 05, 2024 02:02 PM Reporting Lab: [address] [address] Performing Lab: [address] [address] UA COLOR Light-Yellow Yellow UA APPEARANCE Clear Clear UA GLUCOSE Normal mg/dL Negative UA KETONES NEGATIVE mg/dL Negative UA BLOOD SMALL mg/dL Negative UA PROTEIN NEGATIVE mg/dL Negative UA NITRITE NEGATIVE mg/dL Negative UA BILIRUBIN NEGATIVE mg/dL Negative UA SPECIFIC GRAVITY 1.023 H 1.016-1.022 UA pH 5.5 5.0-9.0 UA UROBILINOGEN Normal mg/dL <2.0 UA LEUKOCYTE NEGATIVE Negative Social History: Smoking Status (Most current) and [...] 26, 2023 10:00 AM VA-TOBACCO FORMER USER [facility] Tobacco Use History This section includes a history of the smoking, or tobacco-related health factors, that were collected on or before the date of the Encounter. The data comes from the [place] facility where the Encounter took place. Date/Time Smoking Status/Tobacco Use Comment F acility Aug 26, 2023 10:00 AM [place]-TOBACCO QUIT 15 YRS OR MORE [facility] Apr 11, 2022 11:00 AM VA-TOBACCO FORMER USER [facility] Apr 11, 2022 11:00 AM [place]-TOBACCO QUIT 15 YRS OR MORE [facility] Advance Directives: All historical and current [...] Sep 27, 2005 ADVANCE DIRECTIVE SHARLENE SIDHU [facility] Sep 10, 2005 ADVANCE DIRECTIVE DISCUSSION FRANCE [...] the Encounter. The data comes from all [place] treatment facilities. Date/Time Radiology Report Provider Source Jun 05, 2024 02:[address] ABDOMEN AND PELVIS WITHOUT CONT.: ELVIN REYNA [id number] -1975 [facility] Date: JUN 05, 2024@14:27 Req Phys: LORETTA HANSON Loc: CWM/NO/PACT 7 (Req'g Loc) Img Loc: NHM/CT Service: [place] [address] (Case [id number] COMPLETE) CT ABDOMEN AND PELVIS WITHOUT CON(CT Detailed) CPT:51424 Reason for Study: lower abdominal pain Clinical History: h/o kidney stone, having worsening pain Report Status: Verified Date Reported: JUN 07, 2024 Date Verified: JUN 07, 2024 Clinical Laboratory Science Professor E-Sig: Report: CT ABDOMEN AND PELVIS WITHOUT CONT. HISTORY: lower abdominal pain COMPARISON: 11/28/2091. TECHNIQUE: CT of the abdomen and pelvis with multiplanar reformats was performed at the local [place] facility. 497 images were received by the [place] National Teleradiology Program (NTP) for interpretation. RADIATION DOSE (mGy*cm): 979.8 IV CONTRAST: Not administered. FINDINGS: Evaluation of solid organs is limited in the absence of intravenous contrast. Absence of enteric contrast limits evaluation of the bowel. Liver: Unremarkable. Gallbladder/Biliary Tract: Unremarkable. Spleen: Unremarkable. Pancreas: Similar mild fatty infiltration. Adrenal Glands: Unremarkable. Kidneys, ureters: There is a 7 mm calculus at the right ureteropelvic junction with slightly increased prominence and adjacent fat stranding of the distal ureter (3/119). Additional punctate nonobstructing renal calculus seen in the right inferior pole. No right hydronephrosis. Redemonstrated nonobstructing 1.0 cm left renal calculus in the interpolar region. There is an additional punctate adjacent nonobstructing left renal calculus. No left hydronephrosis. Urinary Bladder: Underdistended, limiting evaluation. Circumferential wall thickening. Reproductive Organs: Prostate gland is prominent. Bowel: No evidence of bowel obstruction or inflammation. A few scattered colonic diverticula. Peritoneum/Retroperitoneum : No ascites, fluid collection or pneumoperitoneum. Vessels: No significant atherosclerotic calcification. Lymph Nodes: Unremarkable. Abdominal/Pelvic Wall: Small fat-containing bilateral inguinal hernias. Small fat-containing umbilical hernia. Bones: Degenerative changes affect the spine. Impression: 1. 7 mm calculus at the right ureteropelvic junction with slightly increased prominence of and mild fat stranding of the distal ureter suggestive of recently passed stone. 2. Circumferential bowel wall thickening may in part be due to underdistention, though correlation for cystitis can be made. The result was communicated to Rodo Christian on 06/07/2024 at 6:41 PST with read-back verification. READING PHYSICIAN: Rashida Hawk MD -[phone] 06/07/2024 6:44 PST [facility] National Teleradiology Program [phone] (For Medical Practitioner Use Only) Attention Patients / Veterans: If you have questions or concerns about these test results, please contact your ordering provider or primary care team. Primary Diagnostic Code: CRITICAL ABNORMALITY Primary Interpreting Staff: RADIOLOGY,OUTSIDE SERVICE, Staff Physician / RADIOLOGY,OUTSIDE SERVICE [facility] Pathology Reports: +/- 30 days of the [...] the Encounter. The data comes from all [facility] facilities. Date/Time Pathology Report Provider Source Jun 05, 2024 02:23 PM LR MICROBIOLOGY REPORT: Reporting Lab: [facility] [CLIA# [id number]] [address] [place] [id number] Accession [UID]: [id number] [[id number]] Received: Jun 05, 2024@14:23 Collection sample: URINE CLEAN CATCH Collection date: Jun 05, 2024 14:23 Site/Specimen: URINE Provider: LORETTA HANSON Test(s) ordered: URINE CULTURE(MWROX).......... completed: Jun 08, 2024 09:02 * BACTERIOLOGY FINAL REPORT => Jun 08, 2024 09:02 TECH CODE: [id number] Bacteriology Remark(s): NO GROWTH IN 24 HOURS, FINAL REPORT TO FOLLOW. FINAL AEROBIC REPORT: NO GROWTH =--=--=--=--=--=--=--=--=--= --=--=--=--=--=--=--=--=--=- -=--=--=--=--=--=--=-- Performing Laboratory: Bacteriology Report Performed By: [facility] [CLIA# [id number]] [address] [place] [address] CYRUS ESPINOZA [facility] Jun 02, 2024 11:29 AM LR SURGICAL PATHOLOGY REPORT: LOCAL TITLE: LR SURGICAL PATHOLOGY REPORT STANDARD TITLE: PATHOLOGY DIAGNOSTIC STUDY REPORT DATE OF NOTE: JUN 02, 2024@11:29:44 ENTRY DATE: JUN 02, 2024@11:29:44 AUTHOR: MAGDALENA STOCKTON MD EXP COSIGNER: URGENCY: STATUS: COMPLETED $APHDR Reporting Lab: [facility] W[facility] [CLIA# [id number]] [address] [place] [address] - - - - - - - [...] - - - PATHOLOGY REPORT Accession No. [facility] 3 - - - - - - - [...] - - - - BRIEF CLINICAL HISTORY: SP Clinicl Hx: 48 year old man with [...] - - - - - PREOPERATIVE DIAGNOSIS: SP nEW, EXOPHYTIC, BOTHERSOME SKIN LESION MIDLINE LOWER [...] - - - PATHOLOGY REPORT Accession No. [facility] [id number] - - - - - - - - - - - - - - - - - - - - - - - - - - - - - - - - - - - - - - - - Gross description: [facility] 25 [id number];;1;Melinda REYNA This is a [facility] case number [facility] [id number]. Received in formalin labeled [...] lower back: Hemangioma, completely excised. CPT code 77273 /es/ MAGDALENA STOCKTON MD Board Certified Dermatopathologist Signed Jun 02, 2024@11:29 Performing Laboratory: Surgical Pathology Report Performed By: [facility] [CLIA# [id number]] [address] [place] [id number] $FTR - - - - - - [...] - - - - - - - ELVIN REYNA JR STANDARD FORM 515 ID:[id number] SEX:M :1975 AGE: 48 LOC:CWM/NO/GS PCP: Loretta Hanson, PIPE SUPERVISOR /es/ MAGDALENA STOCKTON MD Board Certified Dermatopathologist Signed: 06/02/2024 11:29 MAGDALENA STOCKTON MD [facility] Encounter Notes: All associated encounter notes This section contains the clinical notes associated to the Encounter. Date/Time Encounter Note(s) Provider Source May 13, 2024 09:19 AM PRIMARY CARE OUTPA TIENT NOTE: LOCAL TITLE: AMBULATORY/OUTPATIENT CARE NOTE STANDARD TITLE: PRIMARY CARE OUTPATIENT NOTE DATE OF NOTE: MAY 13, 2024@09:19 ENTRY DATE: MAY 13, 2024@09:19:19 AUTHOR: INGRID CHAMORROIGNER: URGENCY: STATUS: COMPLETED F: Walk In D/A: Tremayne presents to primary care with complaint of groin pain since last night. Tremayne recently had ED visit at [facility] on 05/03 for right ureter 3mm stone. He was advised to increase fluids, use Tylenol and Motrin for pain and start short course of Tamsulosin 0.4mg daily. He also was advised to have close follow up with [facility] (consult entered by PCP on 05/04). Vet states he was unable to schedule visit with [facility]. Editht does state he feels he passed the stone several days ago, was feeling no pain and stopped Tamsulosin. Editht reports last night he felt pain in his groin radiating to his right testicle, states pain is 3-4/10. Editht again started Tamsulosin thinking he did not completely pass stone. Vet states he felt joint aches, nausea, headache and sweats after taking Tamsulosin. He ended up going back to [facility] ED last evening due to this. Editht had labs there, shows RN in portal, CBC with Lymphocytes 14.9, Neutrophils 8.05, these were the only abnormal findings for CBC. Urinalysis and sed with no abnormality, also BMP with no abnormality. Vet reports he was told he needed a CT to determine if stone was gone but was told there was a long wait for this. Vet ended up leaving ED. He comes today asking to have CT done. Vet reports the symptoms he experienced after taking Tamsulosin have dissipated. He continues to have groin pain radiating to right testicle. Denies any pain with urination, discoloration of urine or fever/chills. Conferred with PCP who recommends return to ED as evaluation is needed to determine best treatment course. Vet advised of this and also encouraged to schedule with [facility] as initially intended (contact information provided). R: Tremayne left clinic ad ryland. /roberto/ Ingrid ESTRADA RN CNL Primary Care RN Signed: 05/13/2024 09:29 Receipt Acknowledged By: 05/13/2024 09:42 /roberto/ Loretta Hanson DNP, SEQUENCING MACHINE OPERATOR-BC, MARILYN Primary Care Nurse Practitioner INGRID CHAMORRO [facility]
--- OUTSIDE RECORDS SUMMARY | 2024-07-17 16:43 | XMS_ITS | Encounter Summary ---
Author Name [facility] [place] [facility] [place] [facility] [place] [facility] [place] Address [address] [facility] [address], [place] [address] Care Team Providers Care Room Service Runner Name Role Phone LORETTA HANSON Primary Care [...] [place] H Aug 05, 2021 01 [phone] [id number] YOUNG WALSH PATIENT Selected Encounter This section includes the information on record at [place] for the Encounter. Date/Time Encounter Type Encounter Description Reason Pro vider Source May 15, 2024 09:09 AM Outpatient Encounter TELEPHONE PRIMARY CARE IHE Encounter [...] The data comes from all [place] treatment [facility]. Appointment Date/Time Appointment Type Appointme nt Facility Name May 21, 2024 11:00 AM AMBULATORY [facility] MEDICINE [facility] [place] [facility] May 22, 2024 01:30 PM AMBULATORY - MEDICINE [facility] [place] [facility] May 29, 2024 02:00 PM AMBULATORY - MEDICINE [facility] [place] [facility] Jun 05, 2024 10:00 AM AMBULATORY - MEDICINE [facility] [place] [facility] Jun 05, 2024 02:00 PM AMBULATORY - MEDICINE [facility] [place] [facility] Jun 05, 2024 02:45 PM AMBULATORY - NONE [facility] [place] [facility] Jun 17, 2024 08:00 AM AMBULATORY - PSYCHIATRY [facility] [place] [facility] Jun 18, 2024 08:30 AM AMBULATORY - MEDICINE [facility] [place] [facility] Jun 18, 2024 11:00 AM AMBULATORY - PSYCHIATRY [facility] [place] [facility] Jun 26, 2024 09:00 AM AMBULATORY - MEDICINE [facility] [place] [facility] Jul 13, 2024 09:00 AM AMBULATORY - MEDICINE [place] [facility] [place] [facility] Jul 22, 2024 08:30 AM AMBULATORY - MEDICINE [place] [facility] [place] [facility] Oct 15, 2024 10:00 AM AMBULATORY - MEDICINE [place] [facility] [place] [facility] Active, Pending, and Scheduled Orders [...] The data comes from all [place] treatment [facility]. Test Date/Time Test Type Test Details Facility Name Apr 24, 2024 12:00 AM Laboratory - Chemi stry Order OCCULT BLOOD FIT X1 SCREEN(IN-HOUSE) STOOL FECES SP [facility] [place] [facility] Jun 03, 2024 12:30 PM Consult Order DERMATOLOG Y/NHM (OUTPT) Cons District Associate Judge's Choice [facility] Jun 18, 2024 12:00 AM Laboratory - Chemi flako Order DRUGS OF ABUSE URINE (DRUG) SP [facility] Lab Results: +/- 30 days [...] Range Comment Jun 05, 2024 02:[address] [facility] CT/GC DNA PANEL(IN-HOUSE) Specimen Type: URINE Comment: Test performed on the 10X10 Room Genexpert. A negative test results does not exclude the possibility of infection because results may be affected by improper specimen collection, concurrent antibiotic therapy, or the number of organisms in the specimen which may be below the sensitivity of the test. Ordering Provider: MAR HANSON Report Released Date/Time: Jun 05, 2024 02:02 PM Reporting Lab: [address] [address] Performing Lab: [address] [address] GC PCR NOT DETECTED Not Detected CT PCR NOT DETECTED Not Detected Jun 05, 2024 02:23 PM [facility] MICROSCOPIC AUTOMATED, URINE Specimen Type: URINE Comment: If Glucose = >500 and Ketones are positive, please alert the Physician. Ordering Provider: MAR HANSON Report Released Date/Time: Jun 05, 2024 02:02 PM Reporting Lab: [address] [address] Performing Lab: [address] [address] UA WBC 0-5 /[HPF] 0-5 UA MUCUS FEW /[LPF] Trace UA RBC 11-20 /[HPF] H 0-3 Jun 05, 2024 02:23 PM [facility] URINALYSIS CLEAN CATCH Specimen Type: URINE Comment: If Glucose = >500 and Ketones are positive, please alert the Physician. Ordering Provider: MAR HANSON Report Released Date/Time: Jun 05, 2024 02:02 PM Reporting Lab: [facility] [address] [facility] [address] Performing Lab: [facility] [address] [facility] [address] UA COLOR Light-Yellow Yellow UA APPEARANCE Clear [...] Facil ity Aug 26, 2023 10:00 AM [place]-TOBACCO FORMER USER [facility] Tobacco Use History This section includes a history of the smoking, or tobacco-related health factors, that were collected on or before the date of the Encounter. The data comes from the [place] facility where the Encounter took place. Date/Time Smoking Status/Tobacco Use Comment F acility Aug 26, 2023 10:00 AM [place]-TOBACCO QUIT 15 YRS OR MORE [facility] Apr 11, 2022 11:00 AM [place]-TOBACCO FORMER USER [facility] Apr 11, 2022 11:00 AM [place]-TO[place]AC[place] QUIT 15 YRS OR MORE [facility] Advance Directives: All historical and [...] Sep 27, 2005 ADVANCE DIRECTIVE SHARLENE SIDHU [facility] Sep 10, 2005 ADVANCE DIRECTIVE DISCUSSION SIDDIQUIFRANCE MAGUIRE [facility] Aug 14, 2004 ADVANCE DIRECTIVE DISCUSSION [...] PM CT ABDOMEN AND PELVIS WITHOUT CONT.: YOUNG REYNA [id number] -[id number] Exm Date: JUN 05, 2024@14:27 Req Phys: LORETTA HANSON Loc: CWM/NO/PACT 7 (Req'g Loc) Img Loc: [place]/CT Service: [facility] [place] [address] (Case [id number] COMPLETE) CT ABDOMEN AND PELVIS WITHOUT CON(CT Detailed) CPT:88413 Reason for Study: lower abdominal pain Clinical History: h/o kidney stone, having worsening pain Report Status: Verified Date Reported: JUN 07, 2024 Date Verified: JUN 07, 2024 Public Relations Sales Marketing E-Sig: Report: CT ABDOMEN AND PELVIS WITHOUT CONT. HISTORY: lower abdominal pain COMPARISON: 11/28/2091. TECHNIQUE: CT of the abdomen and pelvis with multiplanar reformats was performed at the local [place] facility. 497 images were received by the [place] National Teleradiology Program (NTP) for interpretation. RADIATION [...] read-back verification. READING PHYSICIAN: Rashida Hawk MD -[phone] 06/07/2024 6:44 PST [facility] National Teleradiology Program [phone] (For Medical Practitioner Use Only) Attention Patients / Veterans: If you have questions or concerns about these test results, please contact your ordering provider or primary care team. Primary Diagnostic Code: CRITICAL ABNORMALITY Primary Interpreting Staff: RADIOLOGY,OUTSIDE SERVICE, Staff Physician / RADIOLOGY,OUTSIDE SERVICE [facility] Pathology Reports: +/- 30 days of the [...] comes from all [place] treatment facilities. Date/Time Pathology Report Provider Source Jun 05, 2024 02:23 PM LR MICROBIOLOGY REPORT: Reporting Lab: [facility] [CLIA# [id number]] [address] [place] [address] Accession [UID]: [id number] [[id number]] Received: Jun 05, 2024@14:23 Collection sample: URINE CLEAN CATCH Collection date: Jun 05, 2024 14:23 Site/Specimen: URINE Provider: LORETTA HANSON Test(s) ordered: URINE CULTURE(MWROX).......... completed: Jun 08, 2024 09:02 * BACTERIOLOGY FINAL REPORT => Jun 08, 2024 09:02 TECH CODE: [id number] Bacteriology Remark(s): NO GROWTH IN 24 HOURS, FINAL REPORT TO FOLLOW. FINAL AEROBIC REPORT: NO GROWTH =--=--=--=--=--=--=--=--=--= --=--=--=--=--=--=--=--=--=- -=--=--=--=--=--=--=-- Performing Laboratory: Bacteriology Report Performed By: [facility] [CLIA# [id number]] [address] [place] [phone] CYRUS ESPINOZA [facility] Jun 02, 2024 11:29 AM LR SURGICAL PATHOLOGY REPORT: LOCAL TITLE: LR SURGICAL PATHOLOGY REPORT STANDARD TITLE: PATHOLOGY DIAGNOSTIC STUDY REPORT DATE OF NOTE: JUN 02, 2024@11:29:44 ENTRY DATE: JUN 02, 2024@11:29:44 AUTHOR: MAGDALENA STOCKTON MD EXP COSIGNER: URGENCY: STATUS: COMPLETED $APHDR Reporting Lab: [facility] [CLIA# [id number]] [address] [place] [phone] - - - - - - - [...] - - - PATHOLOGY REPORT Accession No. [facility] 24 533 - - - - [...] - - - - PREOPERATIVE DIAGNOSIS: SP 24 533 nEW, EXOPHYTIC, BOTHERSOME SKIN LESION [...] - - - POSTOPERATIVE DIAGNOSIS: Surgeon/physician: CAITIE DONG =-=-=-=-=-=-=-=-=-=-=-=-=-=- =-=-=-=-=-=-=-=-=-=-=-=-=-=- =-=-=-=-=-=-=-=-=-=-=-= - - - - - - - - - - - - - - - - - - - - - - - - - - - - - - - - - - - - - - - - PATHOLOGY REPORT Accession No. [facility] 24 533 - - - - - - - - - - - - - - - - - - - - - - - - - - - - - - - - - - - - - - - - Gross description: [facility] 25 [id number];;1;Melinda REYNA This is a [facility] case number [facility] [id number]. Received in formalin labeled [...] lower back: Hemangioma, completely excised. CPT code 63301 /es/ MAGDALENA STOCKTON MD Board Certified Dermatopathologist Signed Jun 02, 2024@11:29 Performing Laboratory: Surgical Pathology Report Performed By: [facility] [CLIA# [id number]] [address] [place] [id number] $FTR - - - - - - [...] - YOUNG REYNA JR STANDARD FORM 515 ID:[id number] SEX:M :1975 AGE: 48 LOC:CWM/NO/GS PCP: Loretta Hanson, SOFT WATER MECHANIC /roberto/ MAGDALENA STOCKTON MD Board Certified Dermatopathologist Signed: 06/02/2024 11:29 MAGDALENA STOCKTON MD [place] [facility] Encounter Notes: All associated encounter notes This section contains the clinical notes associated to the Encounter. Date/Time Encounter Note(s) Provider Source May 15, 2024 09:09 AM ADMINISTRATIVE NOTE: LOCAL TITLE: FAX/MAIL RECEIVED STANDARD TITLE: ADMINISTRATIVE NOTE DATE OF NOTE: MAY 15, 2024@09:09 ENTRY DATE: MAY 15, 2024@09:09:11 AUTHOR: INGRID MOYA COSIGNER: URGENCY: STATUS: COMPLETED Document Received On: May Document Type: Emergency Department Note Date of Service: May Facility and or Provider: [facility] ED Contact Information: PCP of Record: LORETTA HANSON Next visit with PCP: 05/22/2024 13:30 CWM/NO/GS 07/22/2024 08:30 CWM/NO/PODIATRY A 10/15/2024 10:00 CWM/NO/OPTOMETRY/MERHAR 04/23/2025 09:00 CWM/NO/PACT 7 Primary Care May keep copies of this document for up to 14 days and send the original for scanning. [facility] ED DOS: 05/13/24 HPI: The patient, Young Reyna,is a 48 y.o. male who presents for evaluation of Flank Pain Spoke with patient in triage chair at request of triage nurse due to patient stating that he is planning to elope. Patient's labs reviewed and overall reassuring however UA showing blood in the urine. Patient [facility] to prolonged wait [facility]. Patient denied any fevers and stated that pain has largely resolved. Patient did also have known kidney stone on recent visit. Denies any burning with urination or gross blood in urine. No nausea, vomiting, diarrhea, constipation. CT Abd/Pelvis 1. The 6 x 4 mm stone in the distal right ureter has migrated slightly more distally. 2. Interval resolution of right hydroureteronephrosis. 3. Additional nonobstructing bilateral renal stones, punctate on the right and measuring up to 9 mm on the left. A/P: he patient is clinically not intoxicated, free from distracting pain, appears to have intact insight, judgment and reason and in my medical opinion has the capacity to make decisions. The patient is also not under any duress to leave the hospital. In this scenario, it would be battery to subject a patient to treatment against his/her will. I have voiced my concerns for the patient's health given that a full evaluation and treatment had not occurred. I have discussed the need for continued evaluation to determine if their symptoms are caused by a condition that present risk of or morbidity. Risks were discussed. I discussed the specific benefits of additional treatment, as well as tried offering alternative options in hopes that the patient might be amenable to partial evaluation and treatment which would be medically beneficial to the patient. However, the patient declined my options and insisted on leaving to be evaluated at the [place]. Because I have been unable to convince the patient to stay, I answered all of their questions about their condition and asked them to return to the ED if they choose to complete their evaluation, or if their symptoms worsen or do not improve. I emphasized that leaving against medical advice does not preclude returning here for further evaluation. I asked the patient to return if they change their mind about the further evaluation and treatment. I strongly encouraged the patient to return to this Emergency Department or any Emergency Department at any time, particularly with worsening symptoms. Disposition AMA Discharge Instructions: ou were seen in the emergency department today for right sided groin pain that has been ongoing from your recent diagnosis of kidney stones. I did recommend that we do a CT scan with contrast to show any evidence of infection, but you persisted that you would like a noncontrast CT. We discussed the limitations of the study which you expressed understanding of. You are not contrast CT of the abdomen showed a right-sided kidney stone that has moved slightly distally in the ureter. I suspect that this is the cause of your ongoing discomfort. Please continue treating with ibuprofen and Tylenol as needed, drink plenty of water, and follow-up with urology at your appointment next week. With any new or concerning symptoms such as fever or chills, nausea with repeated episodes of vomiting, inability to urinate or burning with urination, or urinary frequency, return to the emergency department for further evaluation. Otherwise, follow-up with urology and your primary care provider. Thank you for receiving care with us today, hope you feel better. /es/ Ingrid Moya MSN RN CNL Primary Care RN Signed: 05/15/2024 09:13 Receipt Acknowledged By: 05/15/2024 09:53 /es/ Loretta Hanson DNP, MANAGER PORT-BC, CNL Primary Care Nurse Practitioner INGRID MO[facility]
--- OUTSIDE RECORDS SUMMARY | 2024-07-17 16:43 | XMS_ITS | Encounter Summary ---
Author Name [facility] [place] Address [address] [place] [address] Care Team Providers Care Paperhanger Name Role Phone LORETTA HANSON Primary Care [...] Gonzalez's Name Patient's Relationship to Policy Gonzalez [facility] [address] MEDICAID [facility] Aug 05, 2021 01 [id number] ELVIN WALSH PATIENT Selected Encounter This section includes the information on record at [place] for the Encounter. Date/Time Encounter Type Encounter Description Reason Pro vider Source May 06, 2024 03:01 PM Outpatient Encounter GENERAL SURGERY IHE Encounter Template Text not used by [...] [facility] [facility] May 21, 2024 11:00 AM AMBULATORY [place] MEDICINE [facility] [place] [facility] May 22, 2024 01:30 PM AMBULATORY - MEDICINE [facility] [facility] May 29, 2024 02:00 PM AMBULATORY - MEDICINE [facility] [place] [facility] Jun 05, 2024 10:00 AM AMBULATORY - MEDICINE [facility] [place] [facility] Jun 05, 2024 02:00 PM AMBULATORY - MEDICINE [facility] [place] [facility] Jun 05, 2024 02:45 PM AMBULATORY - NONE [facility] [place] [facility] Jun 17, 2024 08:00 AM AMBULATORY - PSYCHIATRY [place] [facility] [place] [facility] Jun 18, 2024 08:30 AM AMBULATORY - MEDICINE [facility] [place] [facility] Jun 18, 2024 11:00 AM AMBULATORY - PSYCHIATRY [facility] [place] [facility] Jun 26, 2024 09:00 AM AMBULATORY - MEDICINE [facility] [place] [facility] Jul 13, 2024 09:00 AM AMBULATORY - MEDICINE [place] [facility] [facility] [place] [facility] Jul 22, 2024 08:30 AM AMBULATORY - MEDICINE [place] [facility] [facility] [place] [facility] Oct 15, 2024 10:00 AM AMBULATORY - MEDICINE [place] [facility] [place] [facility] Active, Pending, and Scheduled Orders This section includes a listing of several types of active, pending, and scheduled orders, including clinic medications orders, diagnostic test orders, procedure orders and consult orders; where the start date of the order is 45 days before the date of the Encounter or 45 days after the date of theEncounter. The data comes from all [facility]. Test Date/Time Test Type Test Details Facility Name Apr 24, 2024 12:00 AM Laboratory - Chemi stry Order OCCULT BLOOD FIT X1 SCREEN(IN-HOUSE) STOOL FECES SP [facility] [place] [facility] Jun 03, 2024 12:30 PM Consult Order DERMATOLOG Y/NHM (OUTPT) Cons Housekeeper Head's Choice [facility] Jun 18, 2024 12:00 AM Laboratory - Chemi stry Order DRUGS OF ABUSE URINE (DRUG) SP [facility] Lab Results: +/- 30 days [...] Range Comment Jun 05, 2024 02:23 PM [facility] CT/GC DNA PANEL(IN-HOUSE) Specimen Type: URINE Comment: Test performed on the [employer] Genexpert. A negative test results does not exclude the possibility of infection because results may be affected by improper specimen collection, concurrent antibiotic therapy, or the number of organisms in the specimen which may be below the sensitivity of the test. Ordering Provider: MAR HANSON Report Released Date/Time: Jun 05, 2024 02:02 PM Reporting Lab: [address] [address] Performing Lab: [address] [address] GC PCR NOT DETECTED Not Detected CT PCR NOT DETECTED Not Detected Jun 05, 2024 02:23 PM [facility] MICROSCOPIC AUTOMATED, URINE Specimen Type: URINE Comment: If Glucose = >500 and Ketones are positive, please alert the Physician. Ordering Provider: MAR HANSON Report Released Date/Time: Jun 05, 2024 02:02 PM Reporting Lab: [address] [address] Performing Lab: [address] [address] UA WBC 0-5 /[HPF] 0-5 UA MUCUS FEW /[LPF] Trace UA RBC 11-20 /[HPF] H 0-3 Jun 05, 2024 02:23 PM [facility] URINALYSIS CLEAN CATCH Specimen Type: URINE Comment: If Glucose = >500 and Ketones are positive, please alert the Physician. Ordering Provider: MAR HANSON Report Released Date/Time: Jun 05, 2024 02:02 PM Reporting Lab: [facility] [address] [facility] [address] Performing Lab: [facility] [address] [facility] [address] UA COLOR Light-Yellow Yellow UA APPEARANCE Clear [...] Terri bojorquezy Aug 26, 2023 10:00 AM [place]-TOBACCO FOR[facility]ER [facility] [...] AM [place] 15 YRS OR MORE [facility] Apr 11, 2022 11:00 AM VA-TOBACCO FORMER USER [facility] Apr 11, 2022 11:00 AM [place]IT 15 YRS OR MORE [facility] [...] Source May 16, 2011 ADVANCE DIRECTIVE DISCUSSION MANJITDEJAHWally CONTRERAS Sep 27, 2005 ADVANCE DIRECTIVE NAHUMSHARLENE [facility] Sep 10, 2005 ADVANCE DIRECTIVE DISCUSSION FRANCE RODRIGEZ [facility] Aug 14, 2004 ADVANCE DIRECTIVE DISCUSSION REGULO AGUILAR REYESRORY CONTRERAS Radiology Reports: +/- 30 days of [...] the Encounter. The data comes from all [place] treatment facilities. Date/Time Radiology Report Provider Source Jun 05, 2024 02:[address] ABDOMEN AND PELVIS WITHOUT CONT.: ELVIN REYNA [id number] -1975 M Exm Date: JUN 05, 2024@14:27 Req Phys: LORETTA HANSON Loc: CWM/NO/PACT 7 (Req'g Loc) Img Loc: NHM/CT Service: [facility] [place] [address] (Case [id number] COMPLETE) CT ABDOMEN AND PELVIS WITHOUT CON(CT Detailed) CPT:36760 Reason for Study: lower abdominal pain Clinical History: h/o kidney stone, having worsening pain Report Status: Verified Date Reported: JUN 07, 2024 Date Verified: JUN 07, 2024 Photoengraving Supervisor E-Sig: Report: CT ABDOMEN AND PELVIS WITHOUT CONT. HISTORY: lower abdominal pain COMPARISON: 11/28/2091. TECHNIQUE: CT of the abdomen and pelvis with multiplanar reformats was performed at the local [place] facility. 497 images were received by the [place] National Teleradiology Program (NTP) for interpretation. RADIATION [...] read-back verification. READING PHYSICIAN: Rashida Hawk MD -[phone] 06/07/2024 6:44 PST [facility] National Teleradiology Program [phone] (For Medical Practitioner Use Only) Attention Patients / Veterans: If you have questions or concerns about these test results, please contact your ordering provider or primary care team. Primary Diagnostic Code: CRITICAL ABNORMALITY Primary Interpreting Staff: RADIOLOGY,OUTSIDE SERVICE, Staff Physician / RADIOLOGY,OUTSIDE SERVICE [place] [facility] Pathology Reports: +/- 30 days of the [...] the Encounter. The data comes from all [place] treatment facilities. Date/Time Pathology Report Provider Source Jun 05, 2024 02:23 PM LR MICROBIOLOGY REPORT: Reporting Lab: [facility] [CLIA# [id number]] [address] [place] [address] Accession [UID]: [id number] [[id number]] Received: Jun 05, 2024@14:23 Collection sample: URINE CLEAN CATCH Collection date: Jun 05, 2024 14:23 Site/Specimen: URINE Provider: LORETTA HANSON Test(s) ordered: URINE CULTURE(MWROX).......... completed: Jun 08, 2024 09:02 * BACTERIOLOGY FINAL REPORT => Jun 08, 2024 09:02 TECH CODE: [id number] Bacteriology Remark(s): NO GROWTH IN 24 HOURS, FINAL REPORT TO FOLLOW. FINAL AEROBIC REPORT: NO GROWTH =--=--=--=--=--=--=--=--=--= --=--=--=--=--=--=--=--=--=- -=--=--=--=--=--=--=-- Performing Laboratory: Bacteriology Report Performed By: [facility] [CLIA# [id number]] [address] [place] [phone] CYRUS ESPINOZA [facility] Jun 02, 2024 11:29 AM LR SURGICAL PATHOLOGY REPORT: LOCAL TITLE: LR SURGICAL PATHOLOGY REPORT STANDARD TITLE: PATHOLOGY DIAGNOSTIC STUDY REPORT DATE OF NOTE: JUN 02, 2024@11:29:44 ENTRY DATE: JUN 02, 2024@11:29:44 AUTHOR: MAGDALENA STOCKTON MD EXP COSIGNER: URGENCY: STATUS: COMPLETED $APHDR Reporting Lab: [facility] [CLIA# [id number]] [address] [place] [address] - - - - - - - [...] - - - PATHOLOGY REPORT Accession No. ZELDA [id number] - - - - - [...] - - - BRIEF CLINICAL HISTORY: SP 24 533 Clinicl Hx: 48 year old man with [...] - - - PATHOLOGY REPORT Accession No. [facility] 24 533 - - - - - - - - - - - - - - - - - - - - - - - - - - - - - - - - - - - - - - - - Gross description: [facility] 25 [id number];;1;Melinda REYNA This is a [facility] case number [facility] 24 [id number]. Received in formalin labeled [...] lower back: Hemangioma, completely excised. CPT code 21328 /es/ MAGDALENA STOCKTON MD Board Certified Dermatopathologist Signed Jun 02, 2024@11:29 Performing Laboratory: Surgical Pathology Report Performed By: [facility] [CLIA# [id number]] [address] [place] [address] $FTR - - - - - - [...] - ELVIN REYNA JR STANDARD FORM 515 ID:[id number] SEX:M :1975 AGE: 48 LOC:CWM/NO/GS PCP: Loretta Hanson, ADELE /roberto/ MAGDALENA STOCKTON MD Board Certified Dermatopathologist Signed: 06/02/2024 11:29 MAGDALENA STOCKTON MD [place] CNT [facility] Encounter Notes: All associated encounter notes This section contains the clinical notes associated to the Encounter. Date/Time Encounter Note(s) Provider Source May 06, 2024 03:01 PM LETTERS: LOCAL TITLE: PATIENT LETTER (B) STANDARD TITLE: LETTERS DATE OF NOTE: MAY 06, 2024@15:01 ENTRY DATE: MAY 06, 2024@15:01:37 AUTHOR: WARD MOONEY EXP COSIGNER: URGENCY: STATUS: COMPLETED MAY 06, 2024 ELVIN REYNA [address] [address] Dear ELVIN REYNA JR We would like to assist you in scheduling a GENERAL SURG[place] appointment at the [place]. We have been unable to reach you by phone. To schedule this appointment please call toll free Ext [phone]. Our booking appointment hours are Saturday through Saturday from 8:00 am to 4:00 pm. Please leave a message if you receive voicemail and let us know a good time and telephone number where we can reach you. If we dont hear back from you within 14 days from the date of this letter we will discontinue the request. If you have already scheduled this appointment, please disregard this letter. Your health is important to us. Sincerely, [facility] [address] [facility] [address] [place] [address] [place] [address] ext. [phone] [facility] [address] [facility] [address] [place] [address] [place] [address] [phone] [facility] [address] [facility] [address] [place] [address] [place] [address] ext. [phone] [facility] [address] [phone] ext. [phone] WARD MOONEY CN[facility]L [facility]N [facility]
--- OUTSIDE RECORDS SUMMARY | 2024-07-17 16:43 | XMS_ITS | Encounter Summary ---
Author Name [facility] [place] Organization [place] Address [address] [facility], [place] [address] Care Team Providers Care Vendor Management Specialist Name Role Phone LORETTA HANSON [...] [place] [facility] Aug 05, 2021 01 [id number] [id number] ELVIN WALSH PATIENT Selected Encounter This section includes the information on record at [place] for the Encounter. Date/Time Encounter Type Encounter Description Reason Pro vider Source May 22, 2024 01:30 PM Outpatient Encounter GENERAL INTERNAL MEDICINE IHE Encounter Template Text not used by [...] The data comes from all [place] treatment [facility]. Appointment Date/Time Appointment Type Appointme nt Facility Name May 29, 2024 02:00 PM AMBULATORY - MEDICINE [place] [facility] [place] [facility] Jun 05, 2024 10:00 AM AMBULATORY - MEDICINE [place] [facility] [place] [facility] Jun 05, 2024 02:00 PM AMBULATORY - MEDICINE [place] [facility] [place] [facility] Jun 05, 2024 02:45 PM AMBULATORY - NONE [place] [facility] [place] [facility] Jun 17, 2024 08:00 AM AMBULATORY - PSYCHIATRY [facility] [place] [facility] Jun 18, 2024 08:30 AM AMBULATORY - MEDICINE [place] [facility] [place] [facility] Jun 18, 2024 11:00 AM AMBULATORY - PSYCHIATRY [facility] [place] [facility] Jun 26, 2024 09:00 AM AMBULATORY - MEDICINE [place] [facility] [place] [facility] Jul 13, 2024 09:00 AM AMBULATORY - MEDICINE [place] C [facility] [place] [place] [facility] Jul 22, 2024 08:30 AM AMBULATORY - MEDICINE [place] C [facility] [place] [place] [facility] Oct 15, 2024 10:00 AM AMBULATORY - MEDICINE [place] C [facility] [place] [facility] Active, Pending, and Scheduled Orders This section includes a listing of several types of active, pending, and scheduled orders, including clinic medications orders, diagnostic test orders, procedure orders and consult orders; where the start date of the order is 45 days before the date of the Encounter or 45 days after the date of theEncounter. The data comes from all [place] treatment [facility]. Test Date/Time Test Type Test Details Facility Name Apr 24, 2024 12:00 AM Laboratory - Chemistry Order OCCULT BLOOD FIT X1 SCREEN(IN-HOUSE) STOOL FECES SP [place] [facility] [place] [facility] Jun 03, 2024 12:30 PM Consult Order DERMATOLOGY/[facility] (OUTPT) Cons Hospital Cleaner's Choice [facility] [place] [facility] Jun 18, 2024 12:00 AM Laboratory - Chemistry Order DRUGS OF ABUSE URINE (DRUG) SP [place] [facility] [place] [facility] Jun 30, 2024 01:22 PM Consult Order [facility] PSYCHOTHERAPY Cons Hospital Cleaner's Choice [facility] App [place] [facility] Lab Results: +/- 30 days of the encounter This section includes the Chemistry and Hematology Lab Results on record with [place] for the patient. Radiology Reports and Pathology Reports are provided separately, in subsequent sections. Lab Results This section contains the Chemistry/Hematology Results that were resulted 30 days before or 30 daysafter the date of the Encounter. Date/Time Source Result Type Result - Unit Interpretation Reference Range Comment Jun 05, 2024 02:23 PM [facility] CT/GC DNA PANEL(IN-HOUSE) Specimen Type: URINE Comment: Test performed on the [employer] Genexpert. A negative test results does not exclude the possibility of infection because results may be affected by improper specimen collection, concurrent antibiotic therapy, or the number of organisms in the specimen which may be below the sensitivity of the test. Ordering Provider: MAR HANSON Report Released Date/Time: Jun 05, 2024 02:02 PM Reporting Lab: [address] [address] Performing Lab: [address] [address] GC PCR NOT DETECTED Not Detected CT PCR NOT DETECTED Not Detected Jun 05, 2024 02:23 PM [facility] MICROSCOPIC AUTOMATED, URINE Specimen Type: URINE Comment: If Glucose = >500 and Ketones are positive, please alert the Physician. Ordering Provider: MAR HANSON Report Released Date/Time: Jun 05, 2024 02:02 PM Reporting Lab: [facility] [address] [facility] [address] Performing Lab: [address] [address] UA WBC 0-5 /[HPF] 0-5 UA MUCUS FEW /[LPF] Trace UA RBC 11-20 /[HPF] H 0-3 Jun 05, 2024 02:23 PM [facility] URINALYSIS CLEAN CATCH Specimen Type: URINE Comment: If Glucose = >500 and Ketones are positive, please alert the Physician. Ordering Provider: MAR HANSON Report Released Date/Time: Jun 05, 2024 02:02 PM Reporting Lab: [facility] [address] [facility] [address] Performing Lab: [facility] [address] [facility] [address] UA COLOR Light-Yellow Yellow UA APPEARANCE Clear Clear UA GLUCOSE Normal mg/dL Negative UA KETONES NEGATIVE mg/dL Negative UA BLOOD SMALL mg/dL Negative UA PROTEIN NEGATIVE mg/dL Negative UA NITRITE NEGATIVE mg/dL Negative UA BILIRUBIN NEGATIVE mg/dL Negative UA SPECIFIC GRAVITY 1.023 H 1.016-1.022 UA pH 5.5 5.0-9.0 UA UROBILINOGEN Normal mg/dL <2.0 UA LEUKOCYTE NEGATIVE Negative Vital Signs: All taken on the encounter date This section contains inpatient and outpatient Vital Signs collected on the date of the Encounter. Date/Time Temperature Pulse Blood Pressure Respiratory Rate SP02 Pain Height Weight Body Mass Index Source May 22, 2024 01:48 PM 98.6 81 128/78 18 97 0 238.4 39 [facility] Social History: Smoking Status (Most current) and [...] Terri ity Aug 26, 2023 10:00 AM [place]-TOBACCO FORMER USER [facility] Tobacco Use History This section includes a history of the smoking, or tobacco-related health factors, that were collected on or before the date of the Encounter. The data comes from the [place] facility where the Encounter took place. Date/Time Smoking Status/Tobacco Use Comment F acility Aug 26, 2023 10:00 AM [place]-TOBACCO QUIT 15 YRS OR MORE [facility] Apr 11, 2022 11:00 AM VA-TOBACCO FORMER USER [facility] Apr 11, 2022 11:00 AM [place]-TOBACCO QUIT 15 YRS OR MORE [facility] Advance Directives: All historical and [...] ADVANCE DIRECTIVE SHARLENE SIDHU [facility] Sep 10, 2005 ADVANCE DIRECTIVE DISCUSSION FRANCE RODRIGEZ [facility] Aug 14, 2004 ADVANCE DIRECTIVE [...] comes from all [place] treatment facilities. Date/Time Radiology Report Provider Source Jun 05, 2024 02:[address] ABDOMEN AND PELVIS WITHOUT CONT.: ELVIN REYNA [id number] -1975 Ex Date: JUN 05, 2024@14:27 Req Phys: LORETTA HANSON Loc: CWM/NO/PACT 7 (Req'g Loc) Img Loc: [place] Service: [place] [address] (Case 335 COMPLETE) CT ABDOMEN AND PELVIS WITHOUT CON(CT Detailed) CPT:99385 Reason for Study: lower abdominal pain Clinical History: h/o kidney stone, having worsening pain Report Status: Verified Date Reported: JUN 07, 2024 Date Verified: JUN 07, 2024 Aviation Electrical Technician E-Sig: Report: CT ABDOMEN AND PELVIS WITHOUT CONT. HISTORY: lower abdominal pain COMPARISON: 11/28/2091. TECHNIQUE: CT of the abdomen and pelvis with multiplanar reformats was performed at the local [place] facility. 497 images were received by the [place] National Teleradiology Program (NTP) for interpretation. RADIATION [...] read-back verification. READING PHYSICIAN: Rashida Hawk MD -[phone] 06/07/2024 6:44 PST [facility] National Teleradiology Program [phone] (For Medical Practitioner Use Only) Attention Patients / Veterans: If you have questions or concerns about these test results, please contact your ordering provider or primary care team. Primary Diagnostic Code: CRITICAL ABNORMALITY Primary Interpreting Staff: RADIOLOGY,OUTSIDE SERVICE, Staff Physician / RADIOLOGY,OUTSIDE SERVICE [place] [facility] Pathology Reports: +/- 30 days of [...] the Encounter. The data comes from all [facility] facilities. Date/Time Pathology Report Provider Source Jun 05, 2024 02:23 PM LR MICROBIOLOGY REPORT: Reporting Lab: [facility] [CLIA# [id number]] [address] [place] [address] Accession [UID]: [id number] [[id number]] Received: Jun 05, 2024@14:23 Collection sample: URINE CLEAN CATCH Collection date: Jun 05, 2024 14:23 Site/Specimen: URINE Provider: LORETTA HANSON Test(s) ordered: URINE CULTURE(MWROX).......... completed: Jun 08, 2024 09:02 * BACTERIOLOGY FINAL REPORT => Jun 08, 2024 09:02 TECH CODE: [id number] Bacteriology Remark(s): NO GROWTH IN 24 HOURS, FINAL REPORT TO FOLLOW. FINAL AEROBIC REPORT: NO GROWTH =--=--=--=--=--=--=--=--=--= --=--=--=--=--=--=--=--=--=- -=--=--=--=--=--=--=-- Performing Laboratory: Bacteriology Report Performed By: [facility] [CLIA# [id number]] [address] [place] [address] CYRUS ESPINOZA [facility] Jun 02, 2024 11:29 AM LR SURGICAL PATHOLOGY REPORT: LOCAL TITLE: LR SURGICAL PATHOLOGY REPORT STANDARD TITLE: PATHOLOGY DIAGNOSTIC STUDY REPORT DATE OF NOTE: JUN 02, 2024@11:29:44 ENTRY DATE: JUN 02, 2024@11:29:44 AUTHOR: MAGDALENA STOCKTON MD EXP COSIGNER: URGENCY: STATUS: COMPLETED $APHDR Reporting Lab: [facility] [CLIA# [id number]] [address] [place] [address], [place] [address] - - - - - - - [...] - - - PATHOLOGY REPORT Accession No. [facility] 24 533 - - - - - [...] - - - - PREOPERATIVE DIAGNOSIS: SP 533 nEW, EXOPHYTIC, BOTHERSOME SKIN LESION MIDLINE [...] - - - PATHOLOGY REPORT Accession No. [facility] 24 533 - - - - - - - - - - - - - - - - - - - - - - - - - - - - - - - - - - - - - - - - Gross description: [facility] 25 8614;;1;Melinda REYNA This is a [facility] case number [facility] 24 [id number]. Received in formalin labeled with [...] lower back: Hemangioma, completely excised. CPT code 50715 /es/ MAGDALENA STOCKTON MD Board Certified Dermatopathologist Signed Jun 02, 2024@11:29 Performing Laboratory: Surgical Pathology Report Performed By: [facility] [CLIA# [id number]] [address] [place] [phone] $FTR - - - - - - [...] - - - - - - - MARIBELLELVIN JR STANDARD FORM 515 ID:[id number] SEX:M :1975 AGE: 48 LOC:CWM/NO/GS PCP: Loretta Hanson NP /roberto/ MAGDALENA STOCKTON MD Board Certified Dermatopathologist Signed: 06/02/2024 11:29 MAGDALENA STOCKTON MD [facility] Encounter Notes: All associated encounter notes This section contains the clinical notes associated to the Encounter. Date/Time Encounter Note(s) Provider Source May 22, 2024 04:17 PM NURSING OUTPATIENT NOTE: LOCAL TITLE: NURSING/SPECIALTY CLINIC NOTE STANDARD TITLE: NURSING OUTPATIENT NOTE DATE OF NOTE: MAY 22, 2024@16:17 ENTRY DATE: MAY 22, 2024@16:17:11 AUTHOR: YARIEL OSULLIVAN EXP COSIGNER: URGENCY: STATUS: COMPLETED in General Surgery Clinic for consult with Dr. Dong today. [place] expressed interest in seeing Telederm for imaging of various skin conditions that he is concerned about that do not necessarily require surgical removal at this time. Dr. Dong will be seeing for Surgical Procedure next Saturday05/29/2024. Specifics will be in Dr. Dong's Consult Report dated 05/22/2024 after she has finished note. /roberto/ Yariel Osullivan LPN Licensed Practical Nurse Signed: 05/22/2024 16:26 Receipt Acknowledged By: 05/25/2024 07:32 /roberto/ GILBERTO CELIS DNP, [place]-C NURSE PRACTITIONER 05/26/2024 06:59 /es/ CAITIE DONG MD SURGEON 05/25/2024 10:44 /es/ Loretta Hanson DNP, [place]-BC, CNL Primary Care Nurse Practitioner YARIEL OSULLIVAN [facility]
--- OUTSIDE RECORDS SUMMARY | 2024-07-17 16:43 | XMS_ITS | Encounter Summary ---
Author Name [facility] [facility] [place] [facility] [place] Address [address] [place] [address] Care Team Providers Care Senior Pharmacy Technician Name Role Phone LORETTA HANSON Primary [...] to Policy Gonzalez [facility] MEDICAID [facility] Aug 05, 2021 01 [id number] ELVIN WALSH PATIENT Selected Encounter This section includes the information on record at [place] for the Encounter. Date/Time Encounter Type Encounter Description Reason Pro vider Source May 06, 2024 12:09 PM Outpatient Encounter DERMATOLOGY IHE Encounter Template Text not used by [place] Plan of Treatment: Future Appointments (+ 6 [...] 20 appointments. The data comes from all [place] treatment [facility] Appointment Date/Time Appointment Type Appointme nt Facility Name May 13, 2024 09:30 AM AMBULATORY [facility] MEDICINE [facility] [place] [facility] May 21, 2024 11:00 AM AMBULATORY - MEDICINE [facility] [place] [facility] May 22, 2024 01:30 PM AMBULATORY - MEDICINE [facility] [place] [facility] May 29, 2024 02:00 PM AMBULATORY - MEDICINE [facility] [place] [facility] Jun 05, 2024 10:00 AM AMBULATORY - MEDICINE [place] [facility] [place] [facility] Jun 05, 2024 02:00 PM AMBULATORY - MEDICINE [facility] [place] [facility] Jun 05, 2024 02:45 PM AMBULATORY - NONE [place] [facility] [place] [facility] Jun 17, 2024 08:00 AM AMBULATORY - PSYCHIATRY [place] [facility] [place] [facility] Jun 18, 2024 08:30 AM AMBULATORY - MEDICINE [place] [facility] [place] [facility] Jun 18, 2024 11:00 AM AMBULATORY - PSYCHIATRY [place] [facility] [place] [facility] Jun 26, 2024 09:00 AM AMBULATORY - MEDICINE [place] [facility] [place] [facility] Jul 13, 2024 09:00 AM AMBULATORY - MEDICINE [place] [facility] [place] [facility] Jul 22, 2024 08:30 AM AMBULATORY - MEDICINE [place] [facility] [place] [facility] Oct 15, 2024 10:00 AM AMBULATORY - MEDICINE [place] [facility] [place] [facility] Active, Pending, and Scheduled Orders This section includes a listing of several types of active, pending, and scheduled orders, including clinic medications orders, diagnostic test orders, procedure orders and consult orders; where the start date of the order is 45 days before the date of the Encounter or 45 days after the date of theEncounter. The data comes from all [facility] Test Date/Time Test Type Test Details Facility Name Apr 24, 2024 12:00 AM Laboratory - Chemi stry Order OCCULT BLOOD FIT X1 SCREEN(IN-HOUSE) STOOL FECES SP [facility] [place] [facility] Jun 03, 2024 12:30 PM Consult Order DERMATOLOG Y/NHM (OUTPT) Cons Donor Relations Officer's Choice [facility] Jun 18, 2024 12:00 AM Laboratory - Chemi stry Order DRUGS OF ABUSE URINE (DRUG) SP [facility] Lab Results: +/- 30 days of the encounter This section includes the Chemistry and Hematology Lab Results on record with [place] for the patient. Radiology Reports and Pathology Reports are provided separately, in subsequent sections. Lab Results This section contains the Chemistry/Hematology Results that were resulted 30 days before or 30 daysafter the date of the Encounter. Date/Time Source Result Type Result - Unit Interpretation Reference Range Comment Jun 05, 2024 02:23 PM [facility] CT/GC DNA PANEL(IN-HOUSE) Specimen Type: URINE Comment: Test performed on the [employer] Genexpert. A negative test results does not exclude the possibility of infection because results may be affected by improper specimen collection, concurrent antibiotic therapy, or the number of organisms in the specimen which may be below the sensitivity of the test. Ordering Provider: MAR HANSON Report Released Date/Time: Jun 05, 2024 02:02 PM Reporting Lab: [address] [address] Performing Lab: [address] [address] GC PCR NOT DETECTED Not Detected CT PCR NOT DETECTED Not Detected Jun 05, 2024 02:23 PM [facility] MICROSCOPIC AUTOMATED, URINE Specimen Type: URINE Comment: If Glucose = >500 and Ketones are positive, please alert the Physician. Ordering Provider: MAR HANSON Report Released Date/Time: Jun 05, 2024 02:02 PM Reporting Lab: [address] [address] Performing Lab: [address] [address] UA WBC 0-5 /[HPF] 0-5 UA MUCUS FEW /[LPF] Trace UA RBC 11-20 /[HPF] H 0-3 Jun 05, 2024 02:23 PM [facility] URINALYSIS CLEAN CATCH Specimen Type: URINE Comment: If Glucose = >500 and Ketones are positive, please alert the Physician. Ordering Provider: MAR HANSON Report Released Date/Time: Jun 05, 2024 02:02 PM Reporting Lab: [facility] [address] [facility] [address] Performing Lab: [facility] [address] [facility] [address] UA COLOR Light-Yellow Yellow UA APPEARANCE Clear [...] and tobacco- related health factors from the [place] facility where the Encounter took place. Current Smoking Status This section includes the most current smoking, or tobacco-related health factor, from the [place] facility where the Encounter took place. Date/Time Current Smoking Status Comment Terri ity Aug 26, 2023 10:00 AM VA-TOBACCO FORMER USER [facility] Tobacco Use History This section includes a history of the smoking, or tobacco-related health factors, that were collected on or before the date of the Encounter. The data comes from the [place] facility where the Encounter took place. Date/Time Smoking Status/Tobacco Use Comment F acility Aug 26, 2023 10:00 AM [place]-TOBACCO QUIT 15 YRS OR MORE [facility] Apr 11, 2022 11:00 AM [place]-TOBACCO FORMER USER [facility] Apr 11, 2022 11:00 AM [place]-TOBACCO QUIT 15 YRS OR MORE [facility] Advance Directives: All historical and current Section Date Range: From patient's date of to the date document was created. This section includes ALL of a patient's completed or amended [place] Advance and Rescinded Directives. The entries below indicate that a directive exists for the patient, but an actual copy is not included with this document. The data comes from all [place] facilities. Date Advance Directives Provider Source May 16, 2011 ADVANCE DIRECTIVE DISCUSSION TON SARAVIA Sep 27, 2005 ADVANCE DIRECTIVE NAHUMSHARLENE Lo AARON [facility] Sep 10, 2005 ADVANCE DIRECTIVE DISCUSSION FRANCE RODRIGEZ [facility] Aug 14, 2004 ADVANCE DIRECTIVE [...] the Encounter. The data comes from all [place] treatment facilities. Date/Time Radiology Report Provider Source Jun 05, 2024 02:[address] ABDOMEN AND PELVIS WITHOUT CONT.: ELVIN REYNA [id number] -1975 M Exm Date: JUN 05, 2024@14:27 Req Phys: LORETTA HANSON Loc: CWM/NO/PACT 7 (Req'g Loc) Img Loc: NHM/CT Service: Unknown [place] [address] (Case [id number] COMPLETE) CT ABDOMEN AND PELVIS WITHOUT CON(CT Detailed) CPT:53375 Reason for Study: lower abdominal pain Clinical History: h/o kidney stone, having worsening pain Report Status: Verified Date Reported: JUN 07, 2024 Date Verified: JUN 07, 2024 Engineer Chief E-Sig: Report: CT ABDOMEN AND PELVIS WITHOUT CONT. HISTORY: lower abdominal pain COMPARISON: 11/28/2091. TECHNIQUE: CT of the abdomen and pelvis with multiplanar reformats was performed at the local [place] facility. 497 images were received by the [place] National Teleradiology Program (NTP) for interpretation. RADIATION [...] read-back verification. READING PHYSICIAN: Rashida Hawk MD -[phone] 06/07/2024 6:44 PST [facility] National Teleradiology Program [phone] (For Medical Practitioner Use Only) Attention Patients / Veterans: If you have questions or concerns about these test results, please contact your ordering provider or primary care team. Primary Diagnostic Code: CRITICAL ABNORMALITY Primary Interpreting Staff: RADIOLOGY,OUTSIDE SERVICE, Staff Physician / RADIOLOGY,OUTSIDE SERVICE [place] [facility] Pathology Reports: +/- 30 days of the [...] the Encounter. The data comes from all [place] treatment facilities. Date/Time Pathology Report Provider Source Jun 05, 2024 02:23 PM LR MICROBIOLOGY REPORT: Reporting Lab: [facility] [CLIA# [id number]] [address] [place] [address] Accession [UID]: [id number] [[id number]] Received: Jun 05, 2024@14:23 Collection sample: URINE CLEAN CATCH Collection date: Jun 05, 2024 14:23 Site/Specimen: URINE Provider: LORETTA HANSON Test(s) ordered: URINE CULTURE(MWROX).......... completed: Jun 08, 2024 09:02 * BACTERIOLOGY FINAL REPORT => Jun 08, 2024 09:02 TECH CODE: [id number] Bacteriology Remark(s): NO GROWTH IN 24 HOURS, FINAL REPORT TO FOLLOW. FINAL AEROBIC REPORT: NO GROWTH =--=--=--=--=--=--=--=--=--= --=--=--=--=--=--=--=--=--=- -=--=--=--=--=--=--=-- Performing Laboratory: Bacteriology Report Performed By: [facility] [CLIA# [id number]] [address] [place] [id number] CYRUS ESPINOZA [facility] Jun 02, 2024 11:29 AM LR SURGICAL PATHOLOGY REPORT: LOCAL TITLE: LR SURGICAL PATHOLOGY REPORT STANDARD TITLE: PATHOLOGY DIAGNOSTIC STUDY REPORT DATE OF NOTE: JUN 02, 2024@11:29:44 ENTRY DATE: JUN 02, 2024@11:29:44 AUTHOR: MAGDALENA STOCKTON MD EXP COSIGNER: URGENCY: STATUS: COMPLETED $APHDR Reporting Lab: [facility] [CLIA# [id number]] [address] [place] [address] - - - - - - - [...] - - - PATHOLOGY REPORT Accession No. [facility] 24 [id number] - - - - - [...] - - - PATHOLOGY REPORT Accession No. [facility] 24 533 - - - - - - - - - - - - - - - - - - - - - - - - - - - - - - - - - - - - - - - - Gross description: [facility] 25 8414;;1;Melinda REYNA This is a [facility] case number [facility] [id number]. Received in formalin labeled with [...] lower back: Hemangioma, completely excised. CPT code 67050 /es/ MAGDALENA STOCKTON MD Board Certified Dermatopathologist Signed Jun 02, 2024@11:29 Performing Laboratory: Surgical Pathology Report Performed By: [facility] [CLIA# [id number]] [address] [place] [address] $FTR - - - - - - [...] - ELVIN REYNA JR STANDARD FORM 515 ID:[id number] SEX:M :1975 AGE: 48 LOC:CWM/NO/GS PCP: Loretta Hnason, ADELE /roberto/ MAGDALENA STOCKTON MD Board Certified Dermatopathologist Signed: 06/02/2024 11:29 MAGDALENA STOCKTON MD [place] [facility] Encounter Notes: All associated encounter notes This section contains the clinical notes associated to the Encounter. Date/Time Encounter Note(s) Provider Source May 06, 2024 12:09 PM LETTERS: LOCAL TITLE: PATIENT LETTER (B) STANDARD TITLE: LETTERS DATE OF NOTE: MAY 06, 2024@12:09 ENTRY DATE: MAY 06, 2024@12:09:21 AUTHOR: YAQUELIN SINCLAIR COSIGNER: URGENCY: STATUS: COMPLETED [facility] Toll Free Number ext [phone] [facility] scheduling can be reached at ext. [phone] [facility]- ext. [phone] [facility]- ext. [phone] [facility]- ext. [phone] MAY 06, 2024 ELVIN REYNA [address] [place] [id number] Dear ELVIN REYNA JR Thank you for choosing the Department of [facility] ([place]) [facility] as your primary choice for health care. As a partner in your health care, we are contacting you in writing since we have been unsuccessful in our attempts to reach you to date. We want to assure you we are doing everything possible to schedule Veterans for their [place] medical care appointments. Our records indicate you are due for an appointment in DERMATOLOGY CLINIC. If you would like to be seen, please contact [facility] at ext. [phone] to schedule an appointment. Thank you for your service to our nation, and we look forward to hearing from you soon. Sincerely, [facility] [address] [address] [place] [address] ext [phone] [facility] [address] [facility] [address] [place] [address] [place] [address] ext. [phone] [facility] [address] [address] [place] [address] ext. [phone] [facility] [address] [place] [address] ext. [phone] YAQUELIN SINCLAIR [facility]
--- OUTSIDE RECORDS SUMMARY | 2024-07-17 16:43 | XMS_ITS | Encounter Summary ---
Author Name [facility] [facility] [place] [facility] [place] Address [address] [facility], [place] [address] Care Team Providers Care Chief Financial Officer Name Role Phone LORETTA HANSON Primary Care [...] [place] [facility] Aug 05, 2021 01 [id number] [id number] ELVIN WALSH PATIENT Selected Encounter This section includes the information on record at [place] for the Encounter. Date/Time Encounter Type Encounter Description Reason Pro vider Source May 03, 2024 12:00 AM Outpatient Encounter EVENT (HISTORICAL) [...] 20 appointments. The data comes from all [place] treatment [facility]. Appointment Date/Time Appointment Type Appointme nt Facility Name May 13, 2024 09:30 AM AMBULATORY - MEDICINE [facility] [place] [facility] May 21, 2024 11:00 AM AMBULATORY - MEDICINE [facility] [place] [facility] May 22, 2024 01:30 PM AMBULATORY - MEDICINE [facility] [place] [facility] May 29, 2024 02:00 PM AMBULATORY - MEDICINE [facility] [place] [facility] Jun 05, 2024 10:00 AM AMBULATORY - MEDICINE [facility] [place] [facility] Jun 05, 2024 02:00 PM AMBULATORY - MEDICINE [facility] [place] [facility] Jun 05, 2024 02:45 PM AMBULATORY - NONE [place] [facility] [facility] Jun 17, 2024 08:00 AM AMBULATORY - PSYCHIATRY [place] [facility] [facility] Jun 18, 2024 08:30 AM AMBULATORY - MEDICINE [place] [facility] [place] [facility] Jun 18, 2024 11:00 AM AMBULATORY - PSYCHIATRY [place] [facility] [facility] Jun 26, 2024 09:00 AM AMBULATORY - MEDICINE [place] [facility] [facility] [facility] Jul 13, 2024 09:00 AM AMBULATORY - MEDICINE [place] [facility] [facility] [facility] Jul 22, 2024 08:30 AM AMBULATORY - MEDICINE [place] [facility] [facility] [facility] Oct 15, 2024 10:00 AM AMBULATORY - MEDICINE [place] [facility] [facility] [facility] Active, Pending, and Scheduled Orders This section includes a listing of several types of active, pending, and scheduled orders, including clinic medications orders, diagnostic test orders, procedure orders and consult orders; where the start date of the order is 45 days before the date of the Encounter or 45 days after the date of theEncounter. The data comes from all [facility]. Test Date/Time Test Type Test Details Facility Name Apr 24, 2024 12:00 AM Laboratory - Chemi stry Order OCCULT BLOOD FIT X1 SCREEN(IN-HOUSE) STOOL FECES SP [place] [facility] [place] [facility] Jun 03, 2024 12:30 PM Consult Order DERMATOLOG Y/[facility] (OUTPT) Cons Surveillance Systems Engineer's Choice [facility] Social History: Smoking Status (Most current) and Tobacco Use (All prior to encounter date) This section includes the most current, and the historical, smoking and tobacco- related health factors from the [place] facility where the Encounter took place. Current Smoking Status This section includes the most current smoking, or tobacco-related health factor, from the [place] facility where the Encounter took place. Date/Time Current Smoking Status Comment Facil ity Aug 26, 2023 10:00 AM [place]-TOBACCO FORMER USER [facility] Tobacco Use History This section includes a history of the smoking, or tobacco-related health factors, that were collected on or before the date of the Encounter. The data comes from the [place] facility where the Encounter took place. Date/Time Smoking Status/Tobacco Use Comment F acility Aug 26, 2023 10:00 AM [place]-TOBACCO QUIT 15 YRS OR MORE [facility] Apr 11, 2022 11:00 AM [place]-TOBACCO FOR[facility]ER [facility] Apr 11, 2022 11:00 AM [place]-TOBACCO QUIT 15 YRS OR MORE [facility] Advance Directives: All historical and current Section Date Range: From patient's date of to the date document was created. This section includes ALL of a patient's completed or amended [place] Advance and Rescinded Directives. The entries below indicate that a directive exists for the patient, but an actual copy is not included with this document. The data comes from all [place] facilities. Date Advance Directives Provider Source May 16, 2011 ADVANCE DIRECTIVE DISCUSSION TON SARAVIA Sep 27, 2005 ADVANCE DIRECTIVE SHARLENE SIDHU [facility] Sep 10, 2005 ADVANCE DIRECTIVE DISCUSSION FRANCE RODRIGEZ [facility] Aug 14, 2004 ADVANCE DIRECTIVE DISCUSSION [...] the Encounter. The data comes from all [place] treatment facilities. Date/Time Pathology Report Provider Source Jun 02, 2024 11:29 AM LR SURGICAL PATHOLOGY REPORT: LOCAL TITLE: LR SURGICAL PATHOLOGY REPORT STANDARD TITLE: PATHOLOGY DIAGNOSTIC STUDY REPORT DATE OF NOTE: JUN 02, 2024@11:29:44 ENTRY DATE: JUN 02, 2024@11:29:44 AUTHOR: MAGDALENA STOCKTON MD EXP COSIGNER: URGENCY: STATUS: COMPLETED $APHDR Reporting Lab: [facility] [CLIA# [id number]] [address] [place] [address] - - - - - - - [...] - - - PATHOLOGY REPORT Accession No. [facility] 24 533 - - - - [...] - - - BRIEF CLINICAL HISTORY: SP [id number] Clinicl Hx: 48 year old man with [...] - - - PATHOLOGY REPORT Accession No. [facility] 24 533 - - - - - - - - - - - - - - - - - - - - - - - - - - - - - - - - - - - - - - - - Gross description: [facility] 25 9216;;1;Melinda REYNA This is a [facility] case number [facility] [id number]. Received in formalin labeled [...] lower back: Hemangioma, completely excised. CPT code 82718 /roberto/ MAGDALENA STOCKTON MD Board Certified Dermatopathologist Signed Jun 02, 2024@11:29 Performing Laboratory: Surgical Pathology Report Performed By: [facility] [CLIA# [id number]] [address] [place] [address] $FTR - - - - - - [...] - ELVIN REYNA JR STANDARD FORM 515 ID:[id number] SEX:M :1975 AGE: 48 LOC:CWM/NO/GS PCP: Loretta Hanson, ADELE /roberto/ MAGDALENA STOCKTON MD Board Certified Dermatopathologist Signed: 06/02/2024 11:29 MAGDALENA STOCKTON MD [facility] Encounter Notes: All associated encounter notes This section contains the clinical notes associated to the Encounter. Date/Time Encounter Note(s) Provider Source May 03, 2024 12:00 AM NONVA NOTE: LOCAL TITLE: NON-VA HOSPITALIZATIONS/ER STANDARD TITLE: NONVA NOTE DATE OF NOTE: MAY 03, 2024 ENTRY DATE: MAY 22, 2024@09:42:22 AUTHOR: ALMA GARRETT EXP COSIGNER: URGENCY: STATUS: COMPLETED VistA Imaging - Scanned Document SCANNED DOCUMENT SIGNATURE NOT REQUIRED Electronically Filed: 05/22/2024 by: ALMA GARRETT DIRECTOR CORPORATE SECURITY ALMA GARRETT [facility]
--- OUTSIDE RECORDS SUMMARY | 2024-07-17 16:43 | XMS_ITS | Encounter Summary ---
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 documented in the EMLR. Essential Medication List for Review used to complete this medication reconciliation. INCLUDED IN THIS LIST: Alphabetical list of active outpatient prescriptions dispensed from this [place] (local) and dispensed from another [place] or [facility] facility (remote) as well as inpatient orders [...] whether with a VA or non-VA provider. JLV Link Data on this list may not be complete. Please check JLV. Allergies/ADRs (Tool #5) FACILITY ALLERGY/ADR -------- [facility] NO KNOWN ALLERGIES [facility] NO KNOWN ALLERGIES [facility] NO KNOWN ALLERGIES [facility] No Known Allergies [facility] Med Recon NoGlossary (Tool #1) INCLUDED IN THIS LIST: Alphabetical list of active outpatient prescriptions dispensed from this [place] (local) and dispensed from another [place] or [facility] facility (remote) as well as inpatient orders (local pending and active), local clinic medications, locally documented non-VA medications, and local prescriptions that have or been discontinued in the past 90 days. Non-VA Meds Last Documented On: Sep 20, 2022 NOTE The display of VA prescriptions dispensed from another [place] or [facility] facility (remote) is limited to active outpatient prescription entries matched to National Drug File at the originating site and may not include some items such as investigational drugs, compounds, etc. NOT INCLUDED IN THIS LIST: Medications self-entered by the patient into personal health records (i.e. [employer]) are NOT included in this list. Non-VA medications documented outside this [place], remote inpatient orders (regardless of status) and remote clinic medications are NOT included in this list. The patient and provider must always discuss medications the patient is taking, regardless of where the medication was dispensed or obtained. OUTPT AZELASTINE 137MCG/SPRAY 200D NASAL INHL (Status = Active) SPRAY 1 SPRAY INTO EACH NOSTRIL ONCE DAILY FOR SEASONAL RUNNY NOSE Rx# [id number] Last Released: 01/01/24 Qty/Days Supply: 09/03 Rx Expiration Date: 01/01/25 Refills Remainin Indication: FOR SEASONAL RUNNY NOSE OUTPT CETIRIZINE HCL 10MG TAB (Status = ) TAKE ONE TABLET BY MOUTH ONCE DAILY FOR ALLERGIES Rx# [id number] Last Released: 01/01/24 Qty/Days Supply: Rx Expiration Date: 03/31/24 Refills Remainin Indication: FOR ALLERGIES OUTPT CHOLECALCIF 50MCG (D3-2,000UNIT) TAB (Status = Active) TAKE ONE TABLET BY MOUTH ONCE DAILY FOR VITAMIN SUPPLEMENTATION Rx# [id number] Last Released: 05/09/24 Qty/Days Supply: Rx Expiration Date: 06/21/24 Refills Remainin OUTPT DM 10/GUAIFENESN 100MG/5ML (AF & SF) LIQ (Status = Active) TAKE 5 MLS BY MOUTH EVERY 6 HOURS NEEDED FOR COUGH Rx# [id number] Last Released: 04/29/24 Qty/Days Supply: Rx Expiration Date: 04/30/25 Refills Remainin Indication: FOR COUGH OUTPT OMEPRAZOLE 20MG EC CAP (Status = Active) TAKE ONE CAPSULE BY MOUTH ONCE DAILY Rx# [id number] Last Released: 05/09/24 Qty/Days Supply: Rx Expiration Date: 11/08/24 Refills Remainin Indication: FOR EXCESSIVE PRODUCTION OF STOMACH ACID Non-VA PROBIOTIC (CULTURELLE DIGESTIVE DAILY) CAP/TAB TAKE BY MOUTH ONCE DAILY Sep 17, 2022 OUTPT TAMSULOSIN HCL 0.4MG CAP (Status = Active) TAKE ONE CAPSULE BY MOUTH ONCE DAILY FOR 10 DAYS Rx# [id number] Last Released: 05/04/24 Qty/Days Supply: 05/14 Rx Expiration Date: 06/02/24 Refills Remainin SUPPLIES /roberto/ MARIA ANTONIA DONG MD SURGEON Signed: 05/26/2024 06:58 MARIA ANTONIA DONG [facility]
--- OUTSIDE RECORDS SUMMARY | 2024-07-17 16:43 | XMS_ITS ---
Author Name [facility] Organization [facility] Address [address] [place] [address] Care Team Providers Care Decator Operator Name Role Phone LORETTA HANSON Primary Care Provider DREAD Gilmore Primary Care Provider Unavailkristina sweeney Insurance Providers: All historical and current Section [...] [place] [facility] Aug 05, 2021 01 [id number] ELVIN WALSH PATIENT Selected Encounter This section includes the information on record at [place] for the Encounter. Date/Time Encounter Type Encounter Description Reason Pro vider Source May 19, 2024 02:18 PM Outpatient Encounter ADMIN PAT ACTIVTIES (MASNONCT) IHE Encounter Template Text not used by [place] [...] The data comes from all [place] treatment [facility]. Appointment Date/Time Appointment Type Appointme nt Facility Name May 21, 2024 11:00 AM AMBULATORY - MEDICINE [facility] [place] [facility] May 22, 2024 01:30 PM AMBUL[facility] [place] [facility] May 29, 2024 02:00 PM AMBULATORY - MEDICINE [facility] [place] [facility] Jun 05, 2024 10:00 AM AMBULATORY - MEDICINE [place] [facility] [place] [facility] Jun 05, 2024 02:00 PM AMBULATORY - MEDICINE [facility] [place] [facility] Jun 05, 2024 02:45 PM AMBULATORY - NONE [facility] [place] [facility] Jun 17, 2024 08:00 AM AMBULATORY - PSYCHIATRY [facility] [place] [facility] Jun 18, 2024 08:30 AM AMBULATORY - MEDICINE [place] [facility] [place] [facility] Jun 18, 2024 11:00 AM AMBULATORY - PSYCHIATRY [facility] [place] [facility] Jun 26, 2024 09:00 AM AMBULATORY - MEDICINE [place] [facility] [place] [facility] Jul 13, 2024 09:00 AM AMBULATORY - MEDICINE [place] [facility] [place] [facility] Jul 22, 2024 08:30 AM AMBULATORY - MEDICINE [place] [facility] [place] [facility] Oct 15, 2024 10:00 AM AMBULATORY - MEDICINE [place] [facility] [place] [facility] Active, Pending, and Scheduled Orders This section includes a listing of several types of active, pending, and scheduled orders, including clinic medications orders, diagnostic test orders, procedure orders and consult orders; where the start date of the order is 45 days before the date of the Encounter or 45 days after the date of theEncounter. The data comes from all [place] treatment [facility]. Test Date/Time Test Type Test Details Facility Name Apr 24, 2024 12:00 AM Laboratory - Chemistry Order OCCULT BLOOD FIT X1 SCREEN(IN-HOUSE) STOOL FECES SP [place] [facility] [place] [facility] Jun 03, 2024 12:30 PM Consult Order DERMATOLOGY/[facility] (OUTPT) Cons Caustic Strength Inspector's Choice [facility] Jun 18, 2024 12:00 AM Laboratory - Chemistry Order DRUGS OF ABUSE URINE (DRUG) SP [facility] Jun 30, 2024 01:22 PM Consult Order COMMUNITY CARE- PSYCHOTHERAPY Cons Caustic Strength Inspector's Choice [facility] Lab Results: +/- 30 days of [...] Range Comment Jun 05, 2024 02:[address] [facility] CT/GC DNA PANEL(IN-HOUSE) Specimen Type: URINE Comment: Test performed on the NeuroV[employer]il Genexpert. A negative test results does not exclude the possibility of infection because results may be affected by improper specimen collection, concurrent antibiotic therapy, or the number of organisms in the specimen which may be below the sensitivity of the test. Ordering Provider: MAR HANSON Report Released Date/Time: Jun 05, 2024 02:02 PM Reporting Lab: [address] [address] Performing Lab: [address] [address] GC PCR NOT DETECTED Not Detected CT PCR NOT DETECTED Not Detected Jun 05, 2024 02:23 PM [facility] MICROSCOPIC AUTOMATED, URINE Specimen Type: URINE Comment: If Glucose = >500 and Ketones are positive, please alert the Physician. Ordering Provider: MAR HANSON Report Released Date/Time: Jun 05, 2024 02:02 PM Reporting Lab: [address] [address] Performing Lab: [address] [address] UA WBC 0-5 /[HPF] 0-5 UA MUCUS FEW /[LPF] Trace UA RBC 11-20 /[HPF] H 0-3 Jun 05, 2024 02:23 PM [facility] URINALYSIS CLEAN CATCH Specimen Type: URINE Comment: If Glucose = >500 and Ketones are positive, please alert the Physician. Ordering Provider: MAR HANSON Report Released Date/Time: Jun 05, 2024 02:02 PM Reporting Lab: [facility] [address] [facility] [address] Performing Lab: [facility] [address] [facility] [address] UA COLOR Light-Yellow Yellow UA APPEARANCE Clear [...] 26, 2023 10:00 AM VA-TOBACCO FORMER USER [facility] Tobacco Use History This section includes a history of the smoking, or tobacco-related health factors, that were collected on or before the date of the Encounter. The data comes from the [place] facility where the Encounter took place. Date/Time Smoking Status/Tobacco Use Comment F acility Aug 26, 2023 10:00 AM [place]-TOBACCO QUIT 15 YRS OR MORE [facility] Apr 11, 2022 11:00 AM VA-TOBACCO FORMER USER [facility] Apr 11, 2022 11:00 AM [place]-TOBACCO QUIT 15 YRS OR MORE [facility] Advance Directives: All historical and current [...] May 16, 2011 ADVANCE DIRECTIVE DISCUSSION MANJITTON REYESRORY CONTRERAS Sep 27, 2005 ADVANCE DIRECTIVE SHARLENE SIDHU [facility] Sep 10, 2005 ADVANCE DIRECTIVE DISCUSSION FRANCE RODRIGEZ [facility] Aug 14, 2004 ADVANCE DIRECTIVE DISCUSSION [facility] Radiology Reports: +/- 30 days of [...] PM CT ABDOMEN AND PELVIS WITHOUT CONT.: LEVIN REYNA [id number] -1975 Ex Date: JUN 05, 2024@14:27 Req Phys: LORETTA HANSON Loc: CWM/NO/PACT 7 (Req'g Loc) Img Loc: NHM/CT Service: [place] [address] (Case [id number] COMPLETE) CT ABDOMEN AND PELVIS WITHOUT CON(CT Detailed) CPT:96717 Reason for Study: lower abdominal pain Clinical History: h/o kidney stone, having worsening pain Report Status: Verified Date Reported: JUN 07, 2024 Date Verified: JUN 07, 2024 Life Support Technician E-Sig: Report: CT ABDOMEN AND PELVIS WITHOUT CONT. HISTORY: lower abdominal pain COMPARISON: 11/28/2091. TECHNIQUE: CT of the abdomen and pelvis with multiplanar reformats was performed at the local [place] facility. 497 images were received by the [place] National Teleradiology Program (NTP) for interpretation. RADIATION [...] read-back verification. READING PHYSICIAN: Rashida Hawk MD -[phone] 06/07/2024 6:44 PST [facility] National Teleradiology Program [phone] (For Medical Practitioner Use Only) Attention Patients / Veterans: If you have questions or concerns about these test results, please contact your ordering provider or primary care team. Primary Diagnostic Code: CRITICAL ABNORMALITY Primary Interpreting Staff: RADIOLOGY,OUTSIDE SERVICE, Staff Physician / RADIOLOGY,OUTSIDE SERVICE [facility] Pathology Reports: +/- 30 days of [...] comes from all [place] treatment facilities. Date/Time Pathology Report Provider Source Jun 05, 2024 02:23 PM LR MICROBIOLOGY REPORT: Reporting Lab: [facility] [CLIA# [id number]] [address] [place] [address] Accession [UID]: [id number] [[id number]] Received: Jun 05, 2024@14:23 Collection sample: URINE CLEAN CATCH Collection date: Jun 05, 2024 14:23 Site/Specimen: URINE Provider: LORETTA HANSON Test(s) ordered: URINE CULTURE(MWROX).......... completed: Jun 08, 2024 09:02 * BACTERIOLOGY FINAL REPORT => Jun 08, 2024 09:02 TECH CODE: [id number] Bacteriology Remark(s): NO GROWTH IN 24 HOURS, FINAL REPORT TO FOLLOW. FINAL AEROBIC REPORT: NO GROWTH =--=--=--=--=--=--=--=--=--= --=--=--=--=--=--=--=--=--=- -=--=--=--=--=--=--=-- Performing Laboratory: Bacteriology Report Performed By: [facility] [CLIA# [id number]] [address] [place] [id number] CYRUS ESPINOZA [facility] Jun 02, 2024 11:29 AM LR SURGICAL PATHOLOGY REPORT: LOCAL TITLE: LR SURGICAL PATHOLOGY REPORT STANDARD TITLE: PATHOLOGY DIAGNOSTIC STUDY REPORT DATE OF NOTE: JUN 02, 2024@11:29:44 ENTRY DATE: JUN 02, 2024@11:29:44 AUTHOR: MAGDALENA STOCKTON MD EXP COSIGNER: URGENCY: STATUS: COMPLETED $APHDR Reporting Lab: [facility] [CLIA# [id number]] [address] [place] [address] - - - - - - - [...] - - - PATHOLOGY REPORT Accession No. [facility] 24 533 - - - - - [...] - - - PATHOLOGY REPORT Accession No. [facility] 24 533 - - - - - - - - - - - - - - - - - - - - - - - - - - - - - - - - - - - - - - - - Gross description: [facility] [id number];;1;Melinda REYNA This is a [facility] case number [facility] [id number]. Received in formalin labeled with [...] lower back: Hemangioma, completely excised. CPT code 04018 /es/ MAGDALENA STOCKTON MD Board Certified Dermatopathologist Signed Jun 02, 2024@11:29 Performing Laboratory: Surgical Pathology Report Performed By: [facility] [CLIA# [id number]] [address] [place] [address] $FTR - - - - - - [...] - ELVIN REYNA JR STANDARD FORM 515 ID:[id number] SEX:M :1975 AGE: 48 LOC:CWM/NO/GS PCP: Loretta Hanson, GASKET INSPECTOR /roberto/ MAGDALENA STOCKTON MD Board Certified Dermatopathologist Signed: 06/02/2024 11:29 MAGDALENA STOCKTON MD [facility] Encounter Notes: All associated encounter notes This section contains the clinical notes associated to the Encounter. Date/Time Encounter Note(s) Provider Source May 19, 2024 02:18 PM ADMINISTRATIVE NOTE: LOCAL TITLE: CCC: SCHEDULING ADMINISTRATION STANDARD TITLE: ADMINISTRATIVE NOTE DATE OF NOTE: MAY 19, 2024@14:18:13 ENTRY DATE: MAY 19, 2024@14:18:13 AUTHOR: ARNULFO BRANDT EXP COSIGNER: URGENCY: STATUS: COMPLETED Patient Demographics Patient Name: ELVIN Sweeney [employer] Patient Primary Phone: [phone] Patient Primary [address]: [address] [place] [address] Patient : 1975 Patient Age: 48 Call Back Number: Caller/Recipient Relation to Patient: Self Administrative Administrative Note Reason: Other Administrative Note Comments: Pt is calling to let PCP know that he is presently in the ER @ [facility] for possible kidney stones. Pt states he went there because the urologist he saw in community is out of that hospital. IMPORTANT: This note was created by [facility] Clinical Contact Center staff. Please do not alert the staff member by adding them as a signer for future communications. Alerts are not monitored by this user. /roberto/ ARNULFO YO 1 [facility] AMS[facility] Signed: 05/19/2024 14:18 Receipt Acknowledged By: 05/19/2024 14:19 /roberto/ Jacey ESTRADA RN CNL Primary Care RN for RAND VERA 05/19/2024 14:19 /roberto/ Jacey ESTRADA RN CNL Primary Care RN ARNULFO BRANDT [facility]
--- OUTSIDE RECORDS SUMMARY | 2024-07-17 16:44 | XMS_ITS ---
VA INTMD RPR S/A/T/EXT 2.5 CM/< [facility] Encounter Summary Created on: July 17, 2024 ELVIN REYNA : 1975 Sex: Male Author Name [facility] [place] Address [address] [place] [address] Care Team Providers Care Air Value Tester Name Role Phone LORETTA HANSON Primary Care [...] [place] H Aug 05, 2021 01 [phone] [id number] ELVIN WALSH PATIENT Selected Encounter This section includes the information on record at [place] for the Encounter. Date/Time Encounter Type Encounter Description Reason Provider Source May 29, 2024 02:00 PM INTMD RPR S/A/T/EXT 2.5 CM/< GENERAL SURGERY ICD-10-CM D48.5 Neoplasm of uncertain behavior of skin MARIA ANTONIA DONG IHE Encounter Template Text not used by VA Assessments - Encounter Diagnoses This section includes the primary and secondary diagnoses documented for the Encounter. Date/Time Primary/Secondary Diagnosis Diagnosis Name Provider Source May 29, 2024 03:53 PM PRIMARY Neoplasm of uncertain behavior of skin GOMARIA ANTONIA [facility] Plan of Treatment: Future Appointments (+ 6 months) and Future Tests (+/- 45 days) The Plan of Treatment section includes future care activities for the patient from all [place] treatmentfacilities. This section includes future appointments and future orders which are active, pending or scheduled. Future Appointments This section includes appointments that were scheduled to occur 6 months from the date of the Encounter, up to a maximum of 20 appointments. The data comes from all [place] treatment [facility]. Appointment Date/Time Appointment Type Appointme nt Facility Name Jun 05, 2024 10:00 AM AMBULATORY - MEDICINE [facility] Jun 05, 2024 02:00 PM AMBULATORY - MEDICINE [facility] Jun 05, 2024 02:45 PM [facility] Jun 17, 2024 08:00 AM AMBULATORY - PSYCHIATRY [facility] Jun 18, 2024 08:30 AM AMBULATORY - MEDICINE [facility] Jun 18, 2024 11:00 AM AMBULATORY - PSYCHIATRY [facility] Jun 26, 2024 09:00 AM AMBULATORY - MEDICINE [facility] Jul 13, 2024 09:00 AM AMBULATORY - MEDICINE [facility] Jul 22, 2024 08:30 AM AMBULATORY - MEDICINE [facility] Oct 15, 2024 10:00 AM AMBULATORY - MEDICINE [facility] Active, Pending, and Scheduled Orders This section includes a listing of several types of active, pending, and scheduled orders, including clinic medications orders, diagnostic test orders, procedure orders and consult orders; where the start date of the order is 45 days before the date of the Encounter or 45 days after the date of theEncounter. The data comes from all [facility]. Test Date/Time Test Type Test Details Facility Name Apr 24, 2024 12:00 AM Laboratory - Chemistry Order OCCULT BLOOD FIT X1 SCREEN(IN-HOUSE) STOOL FECES SP [facility] Jun 03, 2024 12:30 PM Consult Order DERMATOLOGY/[facility] (OUTPT) Cons [facility] Jun 18, 2024 12:00 AM Laboratory - Chemistry Order DRUGS OF ABUSE URINE (DRUG) [facility] Jun 30, 2024 01:22 PM Consult Order COMMUNITY CARE- PSYCHOTHERAPY Cons Plastic Roller[facility] Choice [facility] Lab Results: +/- 30 days of [...] Comment Jun 05, 2024 02:23 [address] [facility] CT/GC DNA PANEL(IN-HOUSE) Specimen Type: URINE Comment: Test performed on the Eutechnyx Genexpert. A negative test results does not exclude the possibility of infection because results may be affected by improper specimen collection, concurrent antibiotic therapy, or the number of organisms in the specimen which may be below the sensitivity of the test. Ordering Provider: MAR HANSON Report Released Date/Time: Jun 05, 2024 02:02 PM Reporting Lab: [facility] [address] [phone] Performing Lab: [facility] [address] [id number] GC PCR NOT DETECTED Not Detected CT PCR NOT DETECTED Not Detected Jun 05, 2024 02:23 PM [facility] MICROSCOPIC AUTOMATED, URINE Specimen Type: URINE Comment: If Glucose = >500 and Ketones are positive, please alert the Physician. Ordering Provider: MAR HANSON Report Released Date/Time: Jun 05, 2024 02:02 PM Reporting Lab: [facility] [address] [address] Performing Lab: [facility] [address] [address] UA WBC 0-5 /[HPF] 0-5 UA MUCUS FEW /[LPF] Trace UA RBC 11-20 /[HPF] H 0-3 Jun 05, 2024 02:23 PM [facility] URINALYSIS CLEAN CATCH Specimen Type: URINE Comment: If Glucose = >500 and Ketones are positive, please alert the Physician. Ordering Provider: MAR HANSON Report Released Date/Time: Jun 05, 2024 02:02 PM Reporting Lab: [facility] [address] [address] Performing Lab: [address] [address] UA COLOR Light-Yellow Yellow UA APPEARANCE Clear [...] Height Weight Body Mass Index Source May 29, 2024 02:30 PM 98.5 96 123/87 18 97 0 [facility] Social History: Smoking Status (Most current) and [...] Terri ity Aug 26, 2023 10:00 AM CO-TOBACCO FORMER USER [facility] Tobacco Use History This section includes a history of the smoking, or tobacco-related health factors, that were collected on or before the date of the Encounter. The data comes from the [place] facility where the Encounter took place. Date/Time Smoking Status/Tobacco Use Comment F acility Aug 26, 2023 10:00 AM CO-TOBACCO QUIT 15 YRS OR MORE [facility] Apr 11, 2022 11:00 AM CO-TOBACCO FORMER USER [facility] Apr 11, 2022 11:00 AM CO-TOBACCO QUIT 15 YRS OR MORE [facility] Advance Directives: All historical and current [...] 10, 2005 ADVANCE DIRECTIVE DISCUSSION FRANCE RODRIGEZ [facility] Aug 14, 2004 ADVANCE DIRECTIVE [...] the Encounter. The data comes from all [place] treatment facilities. Date/Time Radiology Report Provider Source Jun 05, 2024 02:[address] ABDOMEN AND PELVIS WITHOUT CONT.: ELVIN REYNA [id number] -1975 M Exm Date: JUN 05, 2024@14:27 Req Phys: LORETTA HANSON Loc: CWM/NO/PACT 7 (Req'g Loc) Img Loc: NHM/CT Service: [place] [address] (Case [id number] COMPLETE) CT ABDOMEN AND PELVIS WITHOUT CON(CT Detailed) CPT:72128 Reason for Study: lower abdominal pain Clinical History: h/o kidney stone, having worsening pain Report Status: Verified Date Reported: JUN 07, 2024 Date Verified: JUN 07, 2024 Lock Expert E-Sig: Report: CT ABDOMEN AND PELVIS WITHOUT CONT. HISTORY: lower abdominal pain COMPARISON: 11/28/2091. TECHNIQUE: CT of the abdomen and pelvis with multiplanar reformats was performed at the local [place] facility. 497 images were received by the CO National Teleradiology Program (NTP) for interpretation. RADIATION [...] be made. The result was communicated to [facility] Ita on 06/07/2024 at 6:41 PST with read-back verification. READING PHYSICIAN: Rashida Hawk MD [phone] 06/07/2024 6:44 PST [facility] National BHR Groupradiology Program [phone] (For Medical Practitioner Use Only) Attention Patients / Veterans: If you have questions or concerns about these test results, please contact your ordering provider or primary care team. Primary Diagnostic Code: CRITICAL ABNORMALITY Primary Interpreting Staff: RADIOLOGY,OUTSIDE SERVICE, Staff Physician / RADIOLOGY,OUTSIDE SERVICE [facility] Pathology Reports: +/- 30 days of [...] the Encounter. The data comes from all [facility] facilities. Date/Time Pathology Report Provider Source Jun 05, 2024 02:23 PM LR MICROBIOLOGY REPORT: Reporting Lab: [facility] [CLIA# [id number]] [address] [place] [phone] Accession [UID]: [id number] [[id number]] Received: Jun 05, 2024@14:23 Collection sample: URINE CLEAN CATCH Collection date: Jun 05, 2024 14:23 Site/Specimen: URINE Provider: LORETTA HANSON Test(s) ordered: URINE CULTURE(MWROX).......... completed: Jun 08, 2024 09:02 * BACTERIOLOGY FINAL REPORT => Jun 08, 2024 09:02 TECH CODE: [id number] Bacteriology Remark(s): NO GROWTH IN 24 HOURS, FINAL REPORT TO FOLLOW. FINAL AEROBIC REPORT: NO GROWTH =--=--=--=--=--=--=--=--=--= --=--=--=--=--=--=--=--=--=- -=--=--=--=--=--=--=-- Performing Laboratory: Bacteriology Report Performed By: [facility] [CLIA# [id number]] [address] [place] [address] CYRUS ESPINOZA [facility] Jun 02, 2024 11:29 AM LR SURGICAL PATHOLOGY REPORT: LOCAL TITLE: LR SURGICAL PATHOLOGY REPORT STANDARD TITLE: PATHOLOGY DIAGNOSTIC STUDY REPORT DATE OF NOTE: JUN 02, 2024@11:29:44 ENTRY DATE: JUN 02, 2024@11:29:44 AUTHOR: MAGDALENA STOCKTON MD EXP COSIGNER: URGENCY: STATUS: COMPLETED $APHDR Reporting Lab: [facility] [CLIA# [id number]] [address] [place] [phone] - - - - - - - [...] - - - PATHOLOGY REPORT Accession No. [facility] - - - - - - - [...] - - - - POSTOPERATIVE DIAGNOSIS: Surgeon/physician: MARIA ANTONIA Morel GO =-=-=-=-=-=-=-=-=-=-=-=-=-=- =-=-=-=-=-=-=-=-=-=-=-=-=-=- =-=-=-=-=-=-=-=-=-=-=-= - - - - - - - - - - - - - - - - - - - - - - - - - - - - - - - - - - - - - - - - PATHOLOGY REPORT Accession No. [facility] 24 533 - - - - - - - - - - - - - - - - - - - - - - - - - - - - - - - - - - - - - - - - Gross description: [facility] 25 [id number];;1;Melinda REYNA This is a [facility] case number [facility] [id number]. Received in formalin labeled with [...] lower back: Hemangioma, completely excised. CPT code 90663 /es/ MAGDALENA STOCKTON MD Board Certified Dermatopathologist Signed Jun 02, 2024@11:29 Performing Laboratory: Surgical Pathology Report Performed By: [facility] [CLIA# [id number]] [address] [place] [phone] $FTR - - - - - - [...] - ELVIN REYNA JR STANDARD FORM 515 ID:[id number] SEX:M :1975 AGE: 48 LOC:CWM/NO/GS PCP: Loretta Hanson, ADELE /roberto/ MAGDALENA STOCKTON MD Board Certified Dermatopathologist Signed: 06/02/2024 11:29 MAGDALENA STOCKTON MD [facility] Encounter Notes: All associated encounter notes This section contains the clinical notes associated to the Encounter. Date/Time Encounter Note(s) Provider Source May 29, 2024 02:30 PM PROCEDURE NOTE: LOCAL TITLE: INVASIVE PROCEDURE NOTE STANDARD TITLE: PROCEDURE NOTE DATE OF NOTE: MAY 29, 2024@14:30 ENTRY DATE: MAY 29, 2024@14:30:59 AUTHOR: MARIA ANTONIA DONG COSIGNER: URGENCY: STATUS: COMPLETED PROCEDURE NOTE: DIAGNOSIS: Bothersome exophytic pink-red skin lesion of midline lower back (probable hemangioma?) PROCEDURE: Excision of bothersome exophytic pink-red skin lesion of midline lower back 1) MEDICATION RECONCILIATION REMINDER DONE Yes (to include medications being used during invasive procedure) 2) INFORMED CONSENT: Obtained verbally, and through IMED. YES The patient voiced an understanding and a desire to proceed with the proposed procedure. The patient was counseled regarding: the rationale for the procedure, the nature and steps of the procedure, and its risks, benefits, and alternatives. Risks and possible adverse effects were discussed, which include, but are not limited to, bleeding, infection, having a scar, pain, bruising, injury to nearby structures, numbness, recurrence, and need for further procedures. The patient demonstrated good understanding of what was discussed and understands and accepts the risks. The patient understands the alternatives, and the patient desires to proceed with the proposed procedure. 3) VITAL SIGNS DOCUMENTED PRE-PROCEDURE, PAIN ASSESSMENT Date Vital Measurement Qualifiers 05/29/2024 14:30 Temp F (C) 98.5 (36.9) Pulse 96 Respir 18 BP 123/87 Pain 0 POx (L/Min)(%) 97 At Rest PRE-PROCEDURE SYMPTOM ASSESSMENT: Location: Midline lower back Pain is acute: No Pain is chronic: No Patient's symptoms include: new, enlarging, bothersome, exophytic skin lesion midline lower back 4) Time-Out and Identification: TIME: 14:40 PROVIDER NAME: Maria Antonia Dong MD STAFF NAME: Yraiel Osullivan LPN IDENTIFICATION CONFIRMED BY ASSISTING STAFF MEMBER (X) stating full name ELVIN REYNA JR (X) [place] stating full SS# (X) [place] stating (X) stating correct procedure, correct site, and correct side. Pre-Operative Diagnosis: New, bothersome, exophytic skin lesion of midline lower back Post-Operative Diagnosis: ----> awaiting Pathology report Local Anesthesia: 1% xylocaine with epinephrine: 6 mL SURGICAL PROCEDURE: The patient was placed in the prone position in a position that was comfortable for him. The exophytic skin lesion on his midline lower back that is to be excised today had been identified by the patient and me. This was a 4 mm x 5 mm raised, pink-red, exophytic skin lesion. The area on his lower back where this lesion was located was then widely prepped with povidone/iodine and draped in the usual sterile fashion. An appropriate TIME OUT was performed referable to the intended procedure, with the patient and all team members participating. Prior to the start of the procedure, a final time out was performed at 14:40 with all members of the team verifying informed consent, correct patient, correct procedure, correct side, and correct site. A sterile marking pen was utilized to alex out the planned skin incision. This was a transversely-oriented elliptical incision that encompassed the skin lesion. The elliptical incision measured 1.8 cm x 0.7 cm. Then the anticipated line of the skin incision was locally infiltrated with 1% lidocaine with epinephrine. The elliptical incision was then made. It was deepened sharply through the full thickness of the skin. Then using traction and sharp dissection, the skin ellipse was dissected out down through the subcutaneous fat. After the specimen was removed, it was marked at the 9:00 position with a 4-0 Prolene suture. Then it was sent off the field and placed in formalin, to be sent to the Pathology Department at the CO in [place], [place]. The wound was irrigated well. Hemostasis was achieved with [id number] stitches of 4-0 or 3-0 Vicryl suture. Then the wound was irrigated well once more. Hemostasis was noted to be intact. Then the wound was closed in layers. The deep dermis was closed with interrupted buried 3-0 Vicryl sutures. The skin incision was closed with interrupted vertical mattress sutures of 4-0 Prolene. A sterile dressing was applied to the wound. The patient tolerated the procedure well. Wound care instructions were told to the patient. He went home in stable condition and in good spirits. He will return in 1 week for suture removal and follow up. Size of Excision(lesion+margin: Lesion 4 mm x 5 mm.Excision is 0.7 cm x 1.8 cm Awaiting Pathology report XX X Wound Closure: Intermediate Closure Complications: None POST PROCEDURE PAIN ASSESSMENT COMPLETED: Yes Pain 1-10: 0 DISCHARGE INSTRUCTIONS VERBALLY INCLUDED: ---May get dressing wet in a brief shower. Pat dressing dry after showering. ---No tub baths or long soaks. No hot tubs or jacuzzis. No steam rooms or saunas. No swimming. ---May leave dressing on until your follow up visit. If you choose to remove the dressing after a few days or if the dressing dislodges before your follow up appointment, that is okay. You may wish to replace the dressing with a bandage of your choosing, as you may find it bothersome when your clothes rub against the sutures. ---Take any NON-aspirin analgesic for discomfort ---Follow up in the Clinic in 1 week for suture removal ---Call with any questions or concerns Return to Clinic: 1 week for follow-up. Medication Reconciliation: Outpatient: Has the patient been taking medications as documented in the EMLR? YES: The patient has been taking medications as documented in the EMLR. Essential Medication List for Review used to complete this medication reconciliation. INCLUDED IN THIS LIST: Alphabetical list of active outpatient prescriptions dispensed from this CO (local) and dispensed from another CO or [facility] facility (remote) as well as inpatient orders [...] JLV. Allergies/ADRs (Tool #5) FACILITY ALLERGY/ADR -------- [facility] NO KNOWN ALLERGIES [facility] NO KNOWN ALLERGIES [facility] NO KNOWN ALLERGIES [facility] No Known Allergies [facility] Med Recon NoGlossary (Tool #1) INCLUDED IN THIS LIST: Alphabetical list of active outpatient prescriptions dispensed from this CO (local) and dispensed from another CO or [facility] facility (remote) as well as inpatient orders (local pending and active), local clinic medications, locally documented non-VA medications, and local prescriptions that have or been discontinued in the past 90 days. Non-VA Meds Last Documented On: Sep 20, 2022 NOTE The display of VA prescriptions dispensed from another CO or [facility] facility (remote) is limited to active outpatient prescription entries matched to National Drug File at the originating site and may not include some items such as investigational drugs, compounds, etc. NOT INCLUDED IN THIS LIST: Medications self-entered by the patient into personal health records (i.e. [employer]) are NOT included in this list. Non-VA medications documented outside this CO, remote inpatient orders (regardless of status) and remote clinic medications are NOT included in this list. The patient and provider must always discuss medications the patient is taking, regardless of where the medication was dispensed or obtained. OUTPT AZELASTINE 137MCG/SPRAY 200D NASAL INHL (Status = Active) SPRAY 1 SPRAY INTO EACH NOSTRIL ONCE DAILY FOR SEASONAL RUNNY NOSE Rx# [id number] Last Released: 01/01/24 Qty/Days Supply: 09/03 Rx Expiration Date: 01/01/25 Refills Remainin Indication: FOR SEASONAL RUNNY NOSE OUTPT CETIRIZINE HCL 10MG TAB (Status = ) TAKE ONE TABLET BY MOUTH ONCE DAILY FOR ALLERGIES Rx# [id number] Last Released: 01/01/24 Qty/Days Supply: Rx Expiration Date: 03/31/24 Refills Remainin Indication: FOR ALLERGIES OUTPT CHOLECALCIF 50MCG (D3-2,000UNIT) TAB (Status = Active) TAKE ONE TABLET BY MOUTH ONCE DAILY FOR VITAMIN SUPPLEMENTATION Rx# [id number] Last Released: 05/09/24 Qty/Days Supply: 100 Rx Expiration Date: 06/21/24 Refills Remainin OUTPT DM 10/GUAIFENESN 100MG/5ML (AF & SF) LIQ (Status = Active) TAKE 5 MLS BY MOUTH EVERY 6 HOURS NEEDED FOR COUGH Rx# [id number] Last Released: 04/29/24 Qty/Days Supply: 240/10 Rx Expiration Date: 04/30/25 Refills Remainin Indication: FOR COUGH OUTPT OMEPRAZOLE 20MG EC CAP (Status = Active) TAKE ONE CAPSULE BY MOUTH ONCE DAILY Rx# [id number] Last Released: 05/09/24 Qty/Days Supply: Rx Expiration Date: 11/08/24 Refills Remainin Indication: FOR EXCESSIVE PRODUCTION OF STOMACH ACID Non-VA PROBIOTIC (CULTURELLE DIGESTIVE DAILY) CAP/TAB TAKE BY MOUTH ONCE DAILY Sep 17, 2022 OUTPT TAMSULOSIN HCL 0.4MG CAP (Status = Active) TAKE ONE CAPSULE BY MOUTH ONCE DAILY FOR 10 DAYS Rx# [id number] Last Released: 05/04/24 Qty/Days Supply: 05/14 Rx Expiration Date: 06/02/24 Refills Remainin SUPPLIES /roberto/ MARIA ANTONIA DONG MD SURGEON Signed: 05/29/2024 15:53 MARIA ANTONIA DONG [facility]
--- OUTSIDE RECORDS SUMMARY | 2024-07-17 16:44 | XMS_ITS | Encounter Summary ---
Author Name [facility] [place] [facility] [place] [facility] [place] [facility] [place] Address [address], [place] [address] Care Team Providers Care [employer] Officer Name Role Phone LORETTA HANSON Primary [...] [place] [facility] Aug 05, 2021 01 [phone] [id number] ELVIN WALSH PATIENT Selected Encounter This section includes the information on record at [place] for the Encounter. Date/Time Encounter Type Encounter Description Reason Provider Source Jun 02, 2024 11:29 AM Outpatient Encounter EVENT (HISTORICAL) MAGDALENA STOCKTON MD E Encounter Template Text not used by [place] Plan of Treatment: Future Appointments (+ 6 [...] 20 appointments. The data comes from all [place] treatment facilities. Appointment Date/Time Appointment Type Appointme nt Facility Name Jun 05, 2024 10:00 AM AMBULATORY - MEDICINE [place] [facility] [place] [facility] Jun 05, 2024 02:00 PM AMBULATORY - MEDICINE [facility] [place] [facility] Jun 05, 2024 02:45 PM AMBULATORY - NONE [facility] [place] [facility] Jun 17, 2024 08:00 AM AMBULATORY - PSYCHIATRY [facility] [place] [facility] Jun 18, 2024 08:30 AM AMBULATORY - MEDICINE [place] [facility] [place] [facility] Jun 18, 2024 11:00 AM AMBULATORY - PSYCHIATRY [facility] [place] [facility] Jun 26, 2024 09:00 AM AMBULATORY - MEDICINE [place] [facility] [place] [facility] Jul 13, 2024 09:00 AM AMBULATORY - MEDICINE [place] [facility] [place] [facility] Jul 22, 2024 08:30 AM AMBULATORY - MEDICINE [place] [facility] [place] [facility] Oct 15, 2024 10:00 AM AMBULATORY - MEDICINE [place] [facility] [place] [facility] Active, Pending, and Scheduled Orders This section includes a listing of several types of active, pending, and scheduled orders, including clinic medications orders, diagnostic test orders, procedure orders and consult orders; where the start date of the order is 45 days before the date of the Encounter or 45 days after the date of theEncounter. The data comes from all [facility]. Test Date/Time Test Type Test Details Facility Name Apr 24, 2024 12:00 AM Laboratory - Chemistry Order OCCULT BLOOD FIT X1 SCREEN(IN-HOUSE) STOOL FECES SP [place] [facility] [place] [facility] Jun 03, 2024 12:30 PM Consult Order DERMATOLOGY/[facility] (OUTPT) Cons Reaming Machine Operator's Choice [facility] [place] [facility] Jun 18, 2024 12:00 AM Laboratory - Chemistry Order DRUGS OF ABUSE URINE (DRUG) SP [facility] [place] [facility] Jun 30, 2024 01:22 PM Consult Order [facility] Cons Reaming Machine Operator's Choice [facility] Lab Results: +/- 30 days of the encounter This section includes the Chemistry and Hematology Lab Results on record with [place] for the patient. Radiology Reports and Pathology Reports are provided separately, in subsequent sections. Lab Results This section contains the Chemistry/Hematology Results that were resulted 30 days before or 30 daysafter the date of the Encounter. Date/Time Source Result Type Result - Unit Interpretation Reference Range Comment Jun 05, 2024 02:23 PM [facility] MICROSCOPIC AUTOMATED, URINE Specimen Type: URINE Comment: If Glucose = >500 and Ketones are positive, please alert the Physician. Ordering Provider: MAR HANSON Report Released Date/Time: Jun 05, 2024 02:02 PM Reporting Lab: [address] [address] Performing Lab: [address] [address] UA WBC 0-5 /[HPF] 0-5 UA MUCUS FEW /[LPF] Trace UA RBC 11-20 /[HPF] H 0-3 Jun 05, 2024 02:23 [address] [facility] CT/GC DNA PANEL(IN-HOUSE) Specimen Type: URINE Comment: Test performed on the [employer] Genexpert. A negative test results does not exclude the possibility of infection because results may be affected by improper specimen collection, concurrent antibiotic therapy, or the number of organisms in the specimen which may be below the sensitivity of the test. Ordering Provider: MAR HANSON Report Released Date/Time: Jun 05, 2024 02:02 PM Reporting Lab: [address] [address] Performing Lab: [address] [address] GC PCR NOT DETECTED Not Detected CT PCR NOT DETECTED Not Detected Jun 05, 2024 02:23 PM [facility] URINALYSIS CLEAN CATCH Specimen Type: URINE Comment: If Glucose = >500 and Ketones are positive, please alert the Physician. Ordering Provider: MAR HANSON Report Released Date/Time: Jun 05, 2024 02:02 PM Reporting Lab: [facility] [address] [facility] [address] Performing Lab: [facility] [address] [facility] [address] UA COLOR Light-Yellow Yellow UA APPEARANCE Clear [...] and tobacco- related health factors from the [place] facility where the Encounter took place. Current Smoking Status This section includes the most current smoking, or tobacco-related health factor, from the [place] facility where the Encounter took place. Date/Time Current Smoking Status Comment Terri ity Aug 26, 2023 10:00 AM [place]-TOBACCO FORMER USER [facility] Tobacco Use History This section includes a history of the smoking, or tobacco-related health factors, that were collected on or before the date of the Encounter. The data comes from the [place] facility where the Encounter took place. Date/Time Smoking Status/Tobacco Use Comment F acility Aug 26, 2023 10:00 AM [place]-TOBACCO QUIT 15 YRS OR MORE [facility] Apr 11, 2022 11:00 AM VA-TOBACCO FORMER USER [facility] Apr 11, 2022 11:00 AM [place]-TOBACCO QUIT 15 YRS OR MORE [facility] Advance Directives: All historical and current Section Date Range: From patient's date of to the date document was created. This section includes ALL of a patient's completed or amended [place] Advance and Rescinded Directives. The entries below indicate that a directive exists for the patient, but an actual copy is not included with this document. The data comes from all [place] facilities. Date Advance Directives Provider Source May 16, 2011 ADVANCE DIRECTIVE DISCUSSION TON SARAVIA Sep 27, 2005 ADVANCE DIRECTIVE NAHUMSHARLENE [facility] Sep 10, 2005 ADVANCE DIRECTIVE DISCUSSION FRANCE RODRIGEZ [facility] Aug 14, 2004 ADVANCE DIRECTIVE [...] the Encounter. The data comes from all [place] treatment facilities. Date/Time Radiology Report Provider Source Jun 05, 2024 02:[address] ABDOMEN AND PELVIS WITHOUT CONT.: EVLIN REYNA [id number] -1975 Exm Date: JUN 05, 2024@14:27 Req Phys: LORETTA HANSON Loc: CWM/NO/PACT 7 (Req'g Loc) Img Loc: [facility]/CT Service: [facility] [place] [address] (Case [id number] COMPLETE) CT ABDOMEN AND PELVIS WITHOUT CON(CT Detailed) CPT:44051 Reason for Study: lower abdominal pain Clinical History: h/o kidney stone, having worsening pain Report Status: Verified Date Reported: JUN 07, 2024 Date Verified: JUN 07, 2024 De Icer E-Sig: Report: CT ABDOMEN AND PELVIS WITHOUT CONT. HISTORY: lower abdominal pain COMPARISON: 11/28/2091. TECHNIQUE: CT of the abdomen and pelvis with multiplanar reformats was performed at the local [place] facility. 497 images were received by the [place] National Teleradiology Program (NTP) for interpretation. RADIATION [...] read-back verification. READING PHYSICIAN: Rashida Hawk MD -[phone] 06/07/2024 6:44 PST [facility] National Teleradiology Program [phone] (For Medical Practitioner Use Only) Attention Patients / Veterans: If you have questions or concerns about these test results, please contact your ordering provider or primary care team. Primary Diagnostic Code: CRITICAL ABNORMALITY Primary Interpreting Staff: RADIOLOGY,OUTSIDE SERVICE, Staff Physician / RADIOLOGY,OUTSIDE SERVICE [facility] Pathology Reports: +/- 30 days of [...] the Encounter. The data comes from all [place] treatment facilities. Date/Time Pathology Report Provider Source Jun 05, 2024 02:23 PM LR MICROBIOLOGY REPORT: Reporting Lab: [facility] [CLIA# [id number]] [address] [place] [address] Accession [UID]: [id number] [[id number]] Received: Jun 05, 2024@14:23 Collection sample: URINE CLEAN CATCH Collection date: Jun 05, 2024 14:23 Site/Specimen: URINE Provider: LORETTA HANSON Test(s) ordered: URINE CULTURE(MWROX).......... completed: Jun 08, 2024 09:02 * BACTERIOLOGY FINAL REPORT => Jun 08, 2024 09:02 TECH CODE: [id number] Bacteriology Remark(s): NO GROWTH IN 24 HOURS, FINAL REPORT TO FOLLOW. FINAL AEROBIC REPORT: NO GROWTH =--=--=--=--=--=--=--=--=--= --=--=--=--=--=--=--=--=--=- -=--=--=--=--=--=--=-- Performing Laboratory: Bacteriology Report Performed By: [facility] [CLIA# [id number]] [address] [place] [phone] CYRUS ESPINOZA [facility] Jun 02, 2024 11:29 AM LR SURGICAL PATHOLOGY REPORT: LOCAL TITLE: LR SURGICAL PATHOLOGY REPORT STANDARD TITLE: PATHOLOGY DIAGNOSTIC STUDY REPORT DATE OF NOTE: JUN 02, 2024@11:29:44 ENTRY DATE: JUN 02, 2024@11:29:44 AUTHOR: MAGDALENA STOCKTON MD EXP COSIGNER: URGENCY: STATUS: COMPLETED $APHDR Reporting Lab: [facility] [CLIA# [id number]] [address] [place] [address] - - - - - - - [...] - - - PATHOLOGY REPORT Accession No. [facility] 24 533 - - - - [...] - - - - - PREOPERATIVE DIAGNOSIS: 53 nEW, EXOPHYTIC, BOTHERSOME SKIN LESION MIDLINE [...] - - - PATHOLOGY REPORT Accession No. [facility] 24 533 - - - - - - - - - - - - - - - - - - - - - - - - - - - - - - - - - - - - - - - - Gross description: [facility] 25 [id number];;1;Melinda REYNA This is a [facility] case number [facility] [id number]. Received in formalin labeled [...] lower back: Hemangioma, completely excised. CPT code 22592 /roberto/ MAGDALENA STOCKTON MD Board Certified Dermatopathologist Signed Jun 02, 2024@11:29 Performing Laboratory: Surgical Pathology Report Performed By: [facility] [CLIA# [id number]] [address] [place] [address] $FTR - - - - - - - - - - - - - - - - - - - - - - - - - - - - - - - - - - - - - - - - (End of report) MAGDALENA STOCKTON MD, MD mm Date Jun 02, 2024 - - - - - - - - - - - - - - - - - - - - - - - - - - - - - - - - - - - - - - - - ELVIN REYNA JR STANDARD FORM 515 ID:[id number] SEX:M :1975 AGE: 48 LOC:CWM/NO/GS PCP: Loretta Hanson NP /roberto/ MAGDALENA STOCKTON MD Board Certified Dermatopathologist Signed: 06/02/2024 11:29 MAGDALENA STOCKTON MD [facility] Encounter Notes: All associated encounter notes This section contains the clinical notes associated to the Encounter. Date/Time Encounter Note(s) Provider Source Jun 02, 2024 11:29 AM PATHOLOGY DIAGNOSTIC STUDY REPORT: LOCAL TITLE: LR SURGICAL PATHOLOGY REPORT STANDARD TITLE: PATHOLOGY DIAGNOSTIC STUDY REPORT DATE OF NOTE: JUN 02, 2024@11:29:44 ENTRY DATE: JUN 02, 2024@11:29:44 AUTHOR: MAGDALENA STOCKTON MD EXP COSIGNER: URGENCY: STATUS: COMPLETED $APHDR Reporting Lab: [facility] [CLIA# [id number]] [address] [place] [phone] - - - - - - - [...] - - - PATHOLOGY REPORT Accession No. [facility] 24 533 - - - - [...] - - - BRIEF CLINICAL HISTORY: SP 53 Clinicl Hx: 48 year old man with [...] - - - PATHOLOGY REPORT Accession No. [facility] 24 533 - - - - - - - - - - - - - - - - - - - - - - - - - - - - - - - - - - - - - - - - Gross description: [facility] 25 [id number];;1;Melinda REYNA This is a [facility] case number [facility] [id number]. Received in formalin labeled [...] lower back: Hemangioma, completely excised. CPT code 69468 /roberto/ MAGDALENA STOCKTON MD Board Certified Dermatopathologist Signed Jun 02, 2024@11:29 Performing Laboratory: Surgical Pathology Report Performed By: [facility] [CLIA# [id number]] [address] [place] [phone] $FTR - - - - - - [...] - ELVIN REYNA JR STANDARD FORM 515 ID:[id number] SEX:M :1975 AGE: 48 LOC:CWM/NO/GS PCP: Loretta Hanson NP /roberto/ MAGDALENA STOCKTON MD Board Certified Dermatopathologist Signed: 06/02/2024 11:29 MAGDALENA STOCKTON MD [place] [facility]
--- OUTSIDE RECORDS SUMMARY | 2024-07-17 16:44 | XMS_ITS ---
Author Name [facility] [facility] [place] [facility] [facility] [place] Address [address] [place] [address] Care Team Providers Care Cotton Stomper Name Role Phone LORETTA HANSON Primary Care [...] [place] H Aug 05, 2021 01 [phone] ELVIN WALSH PATIENT Selected Encounter This section includes the information on record at [place] for the Encounter. Date/Time Encounter Type Encounter Description Reason Provider Source Jun 05, 2024 10:00 AM POSTOP FOLLOW-UP VISIT GENERAL SURGERY ICD-10-CM D18.01 Hemangioma of skin and subcutaneous tissue CAITIE DONG Zahra Encounter Template Text not used by [place] Assessments - Encounter Diagnoses This section includes the primary and secondary diagnoses documented for the Encounter. Date/Time Primary/Secondary Diagnosis Diagnosis Name Provider Source Jun 05, 2024 10:05 AM PRIMARY Hemangioma of skin and subcutaneous tissue [facility]IE DONG [facility] Plan of Treatment: Future Appointments (+ 6 months) and Future Tests (+/- 45 days) The Plan of Treatment section includes future care activities for the patient from all [place] [facility]. This section includes future appointments and future orders which are active, pending or scheduled. Future Appointments This section includes appointments that were scheduled to occur 6 months from the date of the Encounter, up to a maximum of 20 appointments. The data comes from all [facility]. Appointment Date/Time Appointment Type Appointme nt Facility Name Jun 17, 2024 08:00 AM AMBULATORY - PSYCHIATRY [facility] Jun 18, 2024 08:30 AM [facility]ORY [facility] Jun 18, 2024 11:00 AM AMBULATORY PSYCHIATRY [facility] Jun 26, 2024 09:00 AM AMBULATORY MEDICINE [facility] Jul 13, 2024 09:00 AM AM[facility]ULATORY [facility] Jul 22, 2024 08:30 AM [facility]UL[facility] Oct 15, 2024 10:00 AM [facility] Active, Pending, and Scheduled Orders This section includes a listing of several types of active, pending, and scheduled orders, including clinic medications orders, diagnostic test orders, procedure orders and consult orders; where the start date of the order is 45 days before the date of the Encounter or 45 days after the date of theEncounter. The data comes from all [facility]. Test Date/Time Test Type Test Details Facility Name Apr 24, 2024 12:00 AM Laboratory - Chemistry Order OCCULT BLOOD FIT X1 SCREEN(IN-HOUSE) STOOL FECES SP [facility] Jun 03, 2024 12:30 PM Consult Order DERMATOLOGY/[facility] (OUTPT) Cons Dough Panner's Choice [facility] Jun 18, 2024 12:00 AM Laboratory - Chemistry Order DRUGS OF ABUSE URINE (DRUG) SP [facility] Jun 30, 2024 01:22 PM Consult Order COMM[facility]ITY [facility] PSYCHOTHERAPY Cons Dough Panner's Choice [facility] Lab Results: +/- 30 days of the [...] Range Comment Jun 05, 2024 02:[address] [facility] CT/GC DNA PANEL(IN-HOUSE) Specimen Type: URINE Comment: Test performed on the [employer] Genexpert. A negative test results does not exclude the possibility of infection because results may be affected by improper specimen collection, concurrent antibiotic therapy, or the number of organisms in the specimen which may be below the sensitivity of the test. Ordering Provider: MAR HANSON Report Released Date/Time: Jun 05, 2024 02:02 PM Reporting Lab: [address] [id number] Performing Lab: [address] [id number] GC PCR NOT DETECTED Not Detected CT PCR NOT DETECTED Not Detected Jun 05, 2024 02:23 PM [facility] MICROSCOPIC AUTOMATED, URINE Specimen Type: URINE Comment: If Glucose = >500 and Ketones are positive, please alert the Physician. Ordering Provider: MAR HANSON Report Released Date/Time: Jun 05, 2024 02:02 PM Reporting Lab: [address] [address] Performing Lab: [address] [address] UA WBC 0-5 /[HPF] 0-5 UA MUCUS FEW /[LPF] Trace UA RBC 11-20 /[HPF] H 0-3 Jun 05, 2024 02:23 PM [facility] URINALYSIS CLEAN CATCH Specimen Type: URINE Comment: If Glucose = >500 and Ketones are positive, please alert the Physician. Ordering Provider: MAR HANSON Report Released Date/Time: Jun 05, 2024 02:02 PM Reporting Lab: [facility] [address] [facility] [address] Performing Lab: [facility] [address] [facility] [address] UA COLOR Light-Yellow Yellow UA APPEARANCE Clear [...] Pain Height Weight Body Mass Index Source Jun 05, 2024 01:52 PM 98.3 91 131/82 20 96 2 66 244 39 [facility] Social History: Smoking Status (Most current) [...] 2023 10:00 AM [place]-TOBACCO FORMER USER [facility] Tobacco Use History This section includes a history of the smoking, or tobacco-related health factors, that were collected on or before the date of the Encounter. The data comes from the [place] facility where the Encounter took place. Date/Time Smoking Status/Tobacco Use Comment F acility Aug 26, 2023 10:00 AM [place]-TOBACCO QUIT 15 YRS OR MORE [facility] Apr 11, 2022 11:00 AM VA-TOBACCO FORMER USER [facility] Apr 11, 2022 11:00 AM [place]-TOBACCO QUIT 15 YRS OR MORE [facility] Advance Directives: All historical and current Section [...] 16, 2011 ADVANCE DIRECTIVE DISCUSSION TON SARAVIA REYESRORY CONTRERAS Sep 27, 2005 ADVANCE DIRECTIVE SHARLENE SIDHU [facility] Sep 10, 2005 ADVANCE DIRECTIVE DISCUSSION FRANCE RODRIGEZ [facility] Aug 14, 2004 ADVANCE DIRECTIVE [...] ABDOMEN AND PELVIS WITHOUT CONT.: ELVIN REYNA [id number] -1975 Ex Date: JUN 05, 2024@14:27 Req Phys: LORETTA HANSON Loc: CWM/NO/PACT 7 (Req'g Loc) Img Loc: [place]/CT Service: [facility] [place] [address] (Case [id number] COMPLETE) CT ABDOMEN AND PELVIS WITHOUT CON(CT Detailed) CPT:01427 Reason for Study: lower abdominal pain Clinical History: h/o kidney stone, having worsening pain Report Status: Verified Date Reported: JUN 07, 2024 Date Verified: JUN 07, 2024 [employer] Instructor E-Sig: Report: CT ABDOMEN AND PELVIS WITHOUT [...] be made. The result was communicated to [facility] on 06/07/2024 at 6:41 PST with read-back verification. READING PHYSICIAN: Rashida Hawk MD -[phone] 06/07/2024 6:44 PST [facility] National Teleradiology Program [phone] (For Medical Practitioner Use Only) Attention Patients / Veterans: If you have questions or concerns about these test results, please contact your ordering provider or primary care team. Primary Diagnostic Code: CRITICAL ABNORMALITY Primary Interpreting Staff: RADIOLOGY,OUTSIDE SERVICE, Staff Physician / RADIOLOGY,OUTSIDE SERVICE [place] [facility] [place] [facility] Pathology Reports: +/- 30 days of [...] 02:23 PM LR MICROBIOLOGY REPORT: Reporting Lab: [facility] [CLIA# [id number]] [address] [place] [id number] Accession [UID]: [id number] [[id number]] Received: Jun 05, 2024@14:23 Collection sample: URINE CLEAN CATCH Collection date: Jun 05, 2024 14:23 Site/Specimen: URINE Provider: LORETTA HANSON Test(s) ordered: URINE CULTURE(MWROX).......... completed: Jun 08, 2024 09:02 * BACTERIOLOGY FINAL REPORT => Jun 08, 2024 09:02 TECH CODE: [id number] Bacteriology Remark(s): NO GROWTH IN 24 HOURS, FINAL REPORT TO FOLLOW. FINAL AEROBIC REPORT: NO GROWTH =--=--=--=--=--=--=--=--=--= --=--=--=--=--=--=--=--=--=- -=--=--=--=--=--=--=-- Performing Laboratory: Bacteriology Report Performed By: [facility] [CLIA# [id number]] [address] [place] [phone] CYRUS ESPINOZA [facility] Jun 02, 2024 11:29 AM LR SURGICAL PATHOLOGY REPORT: LOCAL TITLE: LR SURGICAL PATHOLOGY REPORT STANDARD TITLE: PATHOLOGY DIAGNOSTIC STUDY REPORT DATE OF NOTE: JUN 02, 2024@11:29:44 ENTRY DATE: JUN 02, 2024@11:29:44 AUTHOR: MAGDALENA STOCKTON MD EXP COSIGNER: URGENCY: STATUS: COMPLETED $APHDR Reporting Lab: [facility] [CLIA# [id number]] [address] [place] [address] [place] [address] - - - - - - - [...] - - - PATHOLOGY REPORT Accession No. [facility] 24 533 - - - - [...] - - - PATHOLOGY REPORT Accession No. [facility] 24 533 - - - - - - - - - - - - - - - - - - - - - - - - - - - - - - - - - - - - - - - - Gross description: [facility] 25 [id number];;1;Melinda REYNA This is a [facility] case number [facility] [id number]. Received in formalin labeled [...] lower back: Hemangioma, completely excised. CPT code 93832 /es/ MAGDALENA STOCKTON MD Board Certified Dermatopathologist Signed Jun 02, 2024@11:29 Performing Laboratory: Surgical Pathology Report Performed By: [facility] [CLIA# [id number]] [address] [place] [id number] $FTR - - - - - - [...] - ELVIN REYNA JR STANDARD FORM 515 ID:[id number] SEX:M :1975 AGE: 48 LOC:CWM/NO/GS PCP: Loretta Hanson, HOME CHILD CARE PROVIDER /roberto/ MAGDALENA STOCKTON MD Board Certified Dermatopathologist Signed: 06/02/2024 11:29 MAGDALENA STOCKTON MD [facility] Encounter Notes: All associated encounter notes This section contains the clinical notes associated to the Encounter. Date/Time Encounter Note(s) Provider Source Jun 05, 2024 09:50 AM SURGERY OUTPATIENT NOTE: LOCAL TITLE: SURGICAL CLINIC NOTE STANDARD TITLE: SURGERY OUTPATIENT NOTE DATE OF NOTE: JUN 05, 2024@09:50 ENTRY DATE: JUN 05, 2024@09:50:34 AUTHOR: CAITIE DONG COSIGNER: URGENCY: STATUS: COMPLETED DATE: JUN 05, 2024 ELVIN REYNA JR comes in for a follow up visit. He is now one week s/p excision of a bothersome, recently found, enlarging, exophytic skin lesion on his lower back. Today, he has no complaints. He says that he had a little bit of discomfort the day after the procedure for which he took 1 Tylenol. He denies any fevers or chills. He denies any redness or drainage or bleeding. He says his main pain or discomfort was from the bandage's adhesive pulling when he bent forward from the waist. At one point he thought he had ripped his sutures, but his partner confirmed that he had not. The patient ultimately replaced his original dressing with a large bandaid of his own. ---- SURGICAL PATHOLOGY ---- Reporting Lab: [facility] [CLIA# [id number]] [address] [place] [phone] - - - - - - - [...] - - - PATHOLOGY REPORT Accession No. [facility] [id number] - - - - - - - - - - - - - - - - - - - - - - - - - - - - - - - - - - - - - - - Submitted by: CAITIE DONG Date obtained: May [...] - - - - BRIEF CLINICAL HISTORY: [facility] 24 533 Clinicl Hx:48 year old man with a recently found, bothersome, enlarging, worrisome, exophytic skin lesion on midline lower back. (It looks like a hemangioma?) - - - - - - - - - - - - - - - - - - - - - - - - - - - - - - - - - - - - - - - PREOPERATIVE DIAGNOSIS: [facility] 533 nEW, EXOPHYTIC, BOTHERSOME SKIN LESION MIDLINE [...] - - - - - POSTOPERATIVE DIAGNOSIS: Surgeon/Physician: CAITIE DONG =-=-=-=-=-=-=-=-=-=-=-=-=-=-=- =-=-=-=-=-=-=-=-=-=-=-=-=-=-=- =-=-=-=-=-=-=-=-= - - - - - - - - - - - - - - - - - - - - - - - - - - - - - - - - - - - - - - - PATHOLOGY REPORT Accession No. [facility] [id number] 533 - - - - - - - - - - - - - - - - - - - - - - - - - - - - - - - - - - - - - - - Gross description: [facility] 85 [id number];;1;Melinda REYNA This is a [facility] case number [facility] [id number]. Received in formalin labeled [...] lower back: Hemangioma, completely excised. CPT code 09902 /es/ MAGDALENA STOCKTON MD Board Certified Dermatopathologist Signed Jun 02, 2024@11:29 Performing Laboratory: Surgical Pathology Report Performed By: [facility] [CLIA# [id number]] [address] [place] [address] - - - - - - - [...] - ELVIN REYNA JR STANDARD FORM 515 ID:[id number] SEX:M :1975 AGE: 48 LOC:CWM/NO/GS PCP: Loretta Hanson NP Facility: [facility] HCS EXAMINATION: General: Alert, calm, very talkative, well-appearing, NAD. Skin: Incision on lower back is well-healed. There is some reactive erythema from the sutures. There is no drainage or tenderness. The multiple Prolene sutures are removed without difficulty. He has some pink irritation in a rectangular shape around the incision from the bandage that he had placed. There is also mckeon adhesive residue in a rectangular shape which is removed with adhesive remover. Psych: AAO x3. Mood and affect seem appropriate. IMPRESSION: Satisfactory healing and recovery s/p excision of what turned out to be a hemangioma from the midline lower back. The patient's Pathology Report was reviewed with him, and he was reassured that this lesion, a hemangioma, is benign and completely removed. The patient has done well after his procedure. He is pleased with how he has done as am I. Follow up in this Clinic is PRN. The patient indicated that he had been informed that Tele-Derm could not see him for numerous skin lesions/full body check. He stated that he will be having follow up with the [place] Dermatology provider. /roberto/ CAITIE DONG MD SURGEON Signed: 06/05/2024 10:12 CAITIE DONG [place] [facility]
--- OUTSIDE RECORDS SUMMARY | 2024-07-17 16:44 | XMS_ITS | Encounter Summary ---
Author Name [facility] [place] Organization [facility] [place] [facility] [place] Address [address] [facility], [place] [address] Care Team Providers Care Grid Trimmer Name Role Phone LORETTA HANSON Primary Care [...] Gonzalez's Name Patient's Relationship to Policy Gonzalez [facility] Aug 05, 2021 01 [id number] ELVIN WALSH PATIENT Selected Encounter This section includes the information on record at ID for the Encounter. Date/Time Encounter Type Encounter Description Reason Pro vider Source Jun 05, 2024 10:17 AM Outpatient Encounter PODIATRY IHE Encounter Template Text not used by ID [...] data comes from all ID treatment facilities. Appointment Date/Time Appointment Type Appointme nt Facility Name Jun 17, 2024 08:00 AM AMBULATORY - PSYCHIATRY ID [facility] [place] [facility] Jun 18, 2024 08:30 AM AMBULATORY - MEDICINE ID C [facility] [place] [facility] Jun 18, 2024 11:00 AM AMBULATORY - PSYCHIATRY ID [facility] [place] [facility] Jun 26, 2024 09:00 AM AMBULATORY - MEDICINE ID C [facility] [place] [facility] Jul 13, 2024 09:00 AM AMBULATORY - MEDICINE ID C [facility] [place] [facility] Jul 22, 2024 08:30 AM AMBULATORY - MEDICINE ID C [facility] [place] [facility] Oct 15, 2024 10:00 AM AMBULATORY MEDICINE [facility] [place] [facility] Active, Pending, and Scheduled Orders This section includes a listing of several types of active, pending, and scheduled orders, including clinic medications orders, diagnostic test orders, procedure orders and consult orders; where the start date of the order is 45 days before the date of the Encounter or 45 days after the date of theEncounter. The data comes from all [facility]. Test Date/Time Test Type Test Details Facility Name Apr 24, 2024 12:00 AM Laboratory - Chemistry Order OCCULT BLOOD FIT X1 SCREEN(IN-HOUSE) [facility]OL [facility]ECES SP [facility] [place] [facility] Jun 03, 2024 12:30 PM Consult Order DERMATOLOGY/NHM (OUTPT) Cons Rotary Drill Operator Helper's Choice [facility] [place] [facility] Jun 18, 2024 12:00 AM Laboratory - Chemistry Order DRUGS OF ABUSE URINE (DRUG) SP [facility] [place] [facility] Jun 30, 2024 01:22 PM Consult Order COMMUNITY CARE- PSYCHOTHERAPY Cons Rotary Drill Operator Helper's Choice [facility] Lab Results: +/- 30 days [...] Range Comment Jun 05, 2024 02:23 PM [facility] MICROSCOPIC AUTOMATED, URINE Specimen Type: URINE Comment: If Glucose = >500 and Ketones are positive, please alert the Physician. Ordering Provider: MAR HANSON Report Released Date/Time: Jun 05, 2024 02:02 PM Reporting Lab: [address] [address] Performing Lab: [address] [address] UA WBC 0-5 /[HPF] 0-5 UA MUCUS FEW /[LPF] Trace UA RBC 11-20 /[HPF] H 0-3 Jun 05, 2024 02:[address] [facility] [address]/GC DNA PANEL(IN-HOUSE) Specimen Type: URINE Comment: Test performed on the [employer] Genexpert. A negative test results does not exclude the possibility of infection because results may be affected by improper specimen collection, concurrent antibiotic therapy, or the number of organisms in the specimen which may be below the sensitivity of the test. Ordering Provider: MAR HANSON Report Released Date/Time: Jun 05, 2024 02:02 PM Reporting Lab: [address] [address] Performing Lab: [address] [address] GC PCR NOT DETECTED Not Detected CT PCR NOT DETECTED Not Detected Jun 05, 2024 02:23 PM [facility] URINALYSIS CLEAN CATCH Specimen Type: URINE Comment: If Glucose = >500 and Ketones are positive, please alert the Physician. Ordering Provider: MAR HANSON Report Released Date/Time: Jun 05, 2024 02:02 PM Reporting Lab: [address] [address] Performing Lab: [address] [address] UA COLOR Light-Yellow Yellow UA APPEARANCE Clear [...] 131/82 20 96 2 66 244 39 [facility] Social History: Smoking Status (Most current) and [...] Terri ity Aug 26, 2023 10:00 AM [place]-TOBACCO FORMER USER [facility] Tobacco Use History This section includes a history of the smoking, or tobacco-related health factors, that were collected on or before the date of the Encounter. The data comes from the ID facility where the Encounter took place. Date/Time Smoking Status/Tobacco Use Comment F acility Aug 26, 2023 10:00 AM ID-TOBACCO QUIT 15 YRS OR MORE [facility] Apr 11, 2022 11:00 AM [place]-TOBACCO FORMER USER [facility] Apr 11, 2022 11:00 AM ID-TOBACCO QUIT 15 YRS OR MORE [facility] Advance Directives: All historical and current [...] 27, 2005 ADVANCE DIRECTIVE NAHUMSHARLENE Lo [facility] Sep 10, 2005 ADVANCE DIRECTIVE DISCUSSION FRANCE RODRIGEZ [facility] Aug 14, 2004 ADVANCE DIRECTIVE [...] ABDOMEN AND PELVIS WITHOUT CONT.: ELVIN REYNA [id number] -1975 M Exm Date: JUN 05, 2024@14:27 Req Phys: LORETTA HANSON Loc: CWM/NO/PACT 7 (Req'g Loc) Img Loc: NHM/CT Service: [facility] [place] [address] (Case [id number] COMPLETE) CT ABDOMEN AND PELVIS WITHOUT CON(CT Detailed) CPT:85489 Reason for Study: lower abdominal pain Clinical History: h/o kidney stone, having worsening pain Report Status: Verified Date Reported: JUN 07, 2024 Date Verified: JUN 07, 2024 Branch Coordinator E-Sig: Report: CT ABDOMEN AND PELVIS WITHOUT CONT. HISTORY: lower abdominal pain COMPARISON: 11/28/2091. TECHNIQUE: CT of the abdomen and pelvis with multiplanar reformats was performed at the local ID facility. 497 images were received by the ID National Teleradiology Program (NTP) for interpretation. RADIATION [...] be made. The result was communicated to [facility] Ita on 06/07/2024 at 6:41 PST with read-back verification. READING PHYSICIAN: Rashida Hawk MD -[phone] 06/07/2024 6:44 PST [facility] National Teleradiology Program [phone] (For Medical Practitioner Use Only) Attention Patients / Veterans: If you have questions or concerns about these test results, please contact your ordering provider or primary care team. Primary Diagnostic Code: CRITICAL ABNORMALITY Primary Interpreting Staff: RADIOLOGY,OUTSIDE SERVICE, Staff Physician / RADIOLOGY,OUTSIDE SERVICE [facility] Pathology Reports: +/- 30 days of [...] comes from all [place] treatment facilities. Date/Time Pathology Report Provider Source Jun 05, 2024 02:23 PM LR MICROBIOLOGY REPORT: Reporting Lab: [facility] [CLIA# [id number]] [address] [place] [address] Accession [UID]: [id number] [[id number]] Received: Jun 05, 2024@14:23 Collection sample: URINE CLEAN CATCH Collection date: Jun 05, 2024 14:23 Site/Specimen: URINE Provider: LORETTA HANSON Test(s) ordered: [facility]......... completed: Jun 08, 2024 09:02 * BACTERIOLOGY FINAL REPORT => Jun 08, 2024 09:02 TECH CODE: [id number] Bacteriology Remark(s): NO GROWTH IN 24 HOURS, FINAL REPORT TO FOLLOW. FINAL AEROBIC REPORT: NO GROWTH =--=--=--=--=--=--=--=--=--= --=--=--=--=--=--=--=--=--=- -=--=--=--=--=--=--=-- Performing Laboratory: Bacteriology Report Performed By: [facility] [CLIA# [id number]] [address] [place] [address] CYRUS ESPINOZA [facility] Jun 02, 2024 11:29 AM LR SURGICAL PATHOLOGY REPORT: LOCAL TITLE: LR SURGICAL PATHOLOGY REPORT STANDARD TITLE: PATHOLOGY DIAGNOSTIC STUDY REPORT DATE OF NOTE: JUN 02, 2024@11:29:44 ENTRY DATE: JUN 02, 2024@11:29:44 AUTHOR: MAGDALENA STOCKTON MD EXP COSIGNER: URGENCY: STATUS: COMPLETED $APHDR Reporting Lab: [facility] [CLIA# [id number]] [address] [place] [address] - - - - - - - [...] - - - PATHOLOGY REPORT [facility] 533 - - - - - [...] - - - - - Gross description: [facility] 25 8414;;1;Melinda REYNA This is a [facility] case number SPATH [id number]. Received in formalin labeled with [...] lower back: Hemangioma, completely excised. CPT code 29380 /roberto/ MAGDALENA STOCKTON MD Board Certified Dermatopathologist Signed Jun 02, 2024@11:29 Performing Laboratory: Surgical Pathology Report Performed By: [facility] [CLIA# [id number]] [address] [place] [address] $FTR - - - - - - [...] - ELVIN REYNA JR STANDARD FORM 515 ID:[id number] SEX:M :1975 AGE: 48 LOC:CWM/NO/GS PCP: Loretta Hanson NP /roberto/ MAGDALENA STOCKTON MD Board Certified Dermatopathologist Signed: 06/02/2024 11:29 MAGDALENA STOCKTON MD [facility] Encounter Notes: All associated encounter notes This section contains the clinical notes associated to the Encounter. Date/Time Encounter Note(s) Provider Source Jun 05, 2024 10:17 AM ADMINISTRATIVE NOT E: LOCAL TITLE: ADMINISTRATIVE NOTE STANDARD TITLE: ADMINISTRATIVE NOTE DATE OF NOTE: JUN 05, 2024@10:17 ENTRY DATE: JUN 05, 2024@10:18 AUTHOR: PAVAN DE LEÓN EXP COSIGNER: URGENCY: STATUS: COMPLETED ADMINISTRATIVE NOTE Has ADDENDA Shalimar states he had a bad ingrown nail and is not able to wait until 07/22/2024. Please advise /roberto/ PAVAN DE LEÓN MEDICAL DEVICE ASSEMBLER Signed: 06/05/2024 10:19 Receipt Acknowledged By: 06/05/2024 15:37 /roberto/ CYNTHIA ESPOSITO DPM PODIATRY ATTENDING 06/08/2024 08:06 /roberto/ NINA MALDONADO Podiatry Health Supervisor Cured Meats 06/05/2024 10:37 /roberto/ SEHLLY TURPIN LPN LICENSED PRACTICAL NURSE 06/05/2024 ADDENDUM STATUS: COMPLETED Please offer 06/18/24 at 0830 in Pod A clinic if still available. /roberto/ SHELLY TURPIN LPN LICENSED PRACTICAL NURSE Signed: 06/05/2024 10:35 06/05/2024 ADDENDUM STATUS: COMPLETED SCHEDULED 06/18/2024 /amanda DE LEÓN MEDICAL DEVICE ASSEMBLER Signed: 06/05/2024 10:35 06/05/2024 ADDENDUM STATUS: COMPLETED Call placed to states he has no drainage, swelling, no signs of infection. Toe is tender to touch, he states he is fine the the 06/18/24 date. /roberto/ SHELLY TURPIN LPN LICENSED PRACTICAL NURSE Signed: 06/05/2024 11:22 PAVAN DE LEÓN [facility]
--- OUTSIDE RECORDS SUMMARY | 2024-07-17 16:44 | XMS_ITS | Encounter Summary ---
Author Name [facility] [place] Organization [place] Address [address], [place] [address] Care Team Providers Care Men'S Locker Room Attendant Name Role Phone LORETTA HANSON Primary Care [...] [place] Aug 05, 2021 01 [id number] ELVIN WALSH PATIENT Selected Encounter This section includes the information on record at [place] for the Encounter. Date/Time Encounter Type Encounter Description Reason Pro vider Source Jun 05, 2024 10:29 AM Outpatient Encounter PRIMARY CARE/MEDICINE IHE Encounter Template Text not used by [place] [...] 17, 2024 08:00 AM AMBULATORY - PSYCHIATRY [place] [facility] [place] [facility] Jun 18, 2024 08:30 AM AMBULATORY - MEDICINE [place] C [facility] [place] [facility] Jun 18, 2024 11:00 AM AMBULATORY - PSYCHIATRY [place] [facility] [place] [facility] Jun 26, 2024 09:00 AM AMBULATORY - MEDICINE [place] C [facility] [place] [facility] Jul 13, 2024 09:00 AM AMBULATORY - MEDICINE [place] C [facility] [place] [facility] Jul 22, 2024 08:30 AM AMBULATORY - MEDICINE [place] C [facility] [place] [facility] Oct 15, 2024 10:00 AM AMBULATORY MEDICINE [facility] Active, Pending, and Scheduled Orders This section includes a listing of several types of active, pending, and scheduled orders, including clinic medications orders, diagnostic test orders, procedure orders and consult orders; where the start date of the order is 45 days before the date of the Encounter or 45 days after the date of theEncounter. The data comes from all [facility]. Test Date/Time Test Type Test Details Facility Name Apr 24, 2024 12:00 AM Laboratory - Chemistry Order OCCULT BLOOD FIT X1 SCREEN(IN-HOUSE) STOOL FECES SP [facility] [place] [facility] Jun 03, 2024 12:30 PM Consult Order DERMATOLOGY/[facility]M (OUTPT) Cons Airline Customer Service Agent's Choice [facility] [place] [facility] Jun 18, 2024 12:00 AM Laboratory - Chemistry Order DRUGS OF ABUSE URINE (DRUG) SP [facility] [place] [facility] Jun 30, 2024 01:22 PM Consult Order COMMUNITY CARE- PSYCHOTHERAPY Cons Airline Customer Service Agent's Choice [facility] Lab Results: +/- 30 days of [...] Range Comment Jun 05, 2024 02:23 PM [facility] CT/GC DNA PANEL(IN-HOUSE) Specimen Type: URINE Comment: Test performed on the [employer] Genexpert. A negative test results does not exclude the possibility of infection because results may be affected by improper specimen collection, concurrent antibiotic therapy, or the number of organisms in the specimen which may be below the sensitivity of the test. Ordering Provider: MAR HANSON Report Released Date/Time: Jun 05, 2024 02:02 PM Reporting Lab: [address] [address] Performing Lab: [address] [address] GC PCR NOT DETECTED Not Detected CT PCR NOT DETECTED Not Detected Jun 05, 2024 02:23 PM [facility] MICROSCOPIC AUTOMATED, URINE Specimen Type: URINE Comment: If Glucose = >500 and Ketones are positive, please alert the Physician. Ordering Provider: MAR HANSON Report Released Date/Time: Jun 05, 2024 02:02 PM Reporting Lab: [address] [address] Performing Lab: [address] [address] UA WBC 0-5 /[HPF] 0-5 UA MUCUS FEW /[LPF] Trace UA RBC 11-20 /[HPF] H 0-3 Jun 05, 2024 02:23 PM [facility] URINALYSIS CLEAN CATCH Specimen Type: URINE Comment: If Glucose = >500 and Ketones are positive, please alert the Physician. Ordering Provider: MAR HANSON Report Released Date/Time: Jun 05, 2024 02:02 PM Reporting Lab: [address] [address] Performing Lab: [address] [address] UA COLOR Light-Yellow Yellow UA APPEARANCE Clear [...] 131/82 20 96 2 66 244 39 [facility] Social History: Smoking Status (Most [...] 26, 2023 10:00 AM [place]-TOBACCO FORMER USER [facility] Tobacco Use History This section includes a history of the smoking, or tobacco-related health factors, that were collected on or before the date of the Encounter. The data comes from the [place] facility where the Encounter took place. Date/Time Smoking Status/Tobacco Use Comment F acility Aug 26, 2023 10:00 AM [place]-TOBACCO QUIT 15 YRS OR MORE [facility] Apr 11, 2022 11:00 AM VA-TOBACCO FORMER USER [facility] Apr 11, 2022 11:00 AM [place]-TOBACCO QUIT 15 YRS OR MORE [facility] Advance Directives: All historical and [...] DICKENS Sep 27, 2005 ADVANCE DIRECTIVE NAHUMSHARLENE [facility] Sep 10, 2005 ADVANCE DIRECTIVE DISCUSSION [...] the Encounter. The data comes from all [place] treatment facilities. Date/Time Radiology Report Provider Source Jun 05, 2024 02:[address] ABDOMEN AND PELVIS WITHOUT CONT.: ELVIN REYNA [id number] -1975 Exm Date: JUN 05, 2024@14:27 Req Phys: LORETTA HANSON Loc: CWM/NO/PACT 7 (Req'g Loc) Img Loc: NHM/CT Service: [facility] [place] [address] [place] [address] (Case 335 COMPLETE) CT ABDOMEN AND PELVIS WITHOUT CON(CT Detailed) CPT:46192 Reason for Study: lower abdominal pain Clinical History: h/o kidney stone, having worsening pain Report Status: Verified Date Reported: JUN 07, 2024 Date Verified: JUN 07, 2024 Process Line Operator E-Sig: Report: CT ABDOMEN AND PELVIS WITHOUT CONT. HISTORY: lower abdominal pain COMPARISON: 11/28/2091. TECHNIQUE: CT of the abdomen and pelvis with multiplanar reformats was performed at the local [place] facility. 497 images were received by the [place] National Teleradiology Program (NTP) for interpretation. RADIATION [...] read-back verification. READING PHYSICIAN: Rashida Hawk MD -[phone] 06/07/2024 6:44 PST [facility] National Teleradiology Program [phone] (For Medical Practitioner Use Only) Attention Patients / Veterans: If you have questions or concerns about these test results, please contact your ordering provider or primary care team. Primary Diagnostic Code: CRITICAL ABNORMALITY Primary Interpreting Staff: RADIOLOGY,OUTSIDE SERVICE, Staff Physician / RADIOLOGY,OUTSIDE SERVICE [facility] Pathology Reports: +/- 30 days of [...] the Encounter. The data comes from all [place] treatment facilities. Date/Time Pathology Report Provider Source Jun 05, 2024 02:23 PM MICROBIOLOGY REPORT: Reporting Lab: [facility] [CLIA# [id number]] [address] [place] [address] Accession [UID]: [id number] [[id number]] Received: Jun 05, 2024@14:23 Collection sample: URINE CLEAN CATCH Collection date: Jun 05, 2024 14:23 Site/Specimen: URINE Provider: LORETTA HANSON Test(s) ordered: URINE CULTURE(M[facility]OX).......... completed: Jun 08, 2024 09:02 * BACTERIOLOGY FINAL REPORT => Jun 08, 2024 09:02 TECH CODE: [id number] Bacteriology Remark(s): NO GROWTH IN 24 HOURS, FINAL REPORT TO FOLLOW. FINAL AEROBIC REPORT: NO GROWTH =--=--=--=--=--=--=--=--=--= --=--=--=--=--=--=--=--=--=- -=--=--=--=--=--=--=-- Performing Laboratory: Bacteriology Report Performed By: [facility] [CLIA# [id number]] [address] [place] [address] CYRUS ESPINOZA [facility] Jun 02, 2024 11:29 AM LR SURGICAL PATHOLOGY REPORT: LOCAL TITLE: LR SURGICAL PATHOLOGY REPORT STANDARD TITLE: PATHOLOGY DIAGNOSTIC STUDY REPORT DATE OF NOTE: JUN 02, 2024@11:29:44 ENTRY DATE: JUN 02, 2024@11:29:44 AUTHOR: MAGDALENA STOCKTON MD EXP COSIGNER: URGENCY: STATUS: COMPLETED $APHDR Reporting Lab: [facility] [CLIA# [id number]] [address] [place] [address] - - - - - - - [...] - - - [facility] - - - - [...] - - - PATHOLOGY REPORT Accession No. [facility] 24 533 - - - - - - - - - - - - - - - - - - - - - - - - - - - - - - - - - - - - - - - - Gross description: [facility] 25 8414;;1;Melinda REYNA This is a [facility] case number [facility] 24 [id number]. Received in formalin labeled [...] lower back: Hemangioma, completely excised. CPT code 85647 /roberto/ MAGDALENA STOCKTON MD Board Certified Dermatopathologist Signed Jun 02, 2024@11:29 Performing Laboratory: Surgical Pathology Report Performed By: [facility] [CLIA# [id number]] [address] [place] [address] $FTR - - - - - - [...] - ELVIN REYNA JR STANDARD FORM 515 ID:[id number] SEX:M :1975 AGE: 48 LOC:CWM/NO/VICK PCP: Loretta Hanson NP /roberto/ MAGDALENA STOCKTON MD Board Certified Dermatopathologist Signed: 06/02/2024 11:29 MAGDALENA STOCKTON MD [facility] Encounter Notes: All associated encounter notes This section contains the clinical notes associated to the Encounter. Date/Time Encounter Note(s) Provider Source Jun 05, 2024 10:32 AM ADMINISTRATIVE NOTE: LOCAL TITLE: ADMINISTRATIVE NOTE STANDARD TITLE: ADMINISTRATIVE NOTE DATE OF NOTE: JUN 05, 2024@10:32 ENTRY DATE: JUN 05, 2024@10:32:22 AUTHOR: TANGELA GIRON EXP COSIGNER: URGENCY: STATUS: COMPLETED presented to [facility] Primary Care regarding urology issues. reporting bladder pain and incontinence offered appointment today 06/05/24 with PCP at 2pm. accepted this appointment. /es/ TANGELA CENTENO Signed: 06/05/2024 10:33 Receipt Acknowledged By: 06/05/2024 10:58 /es/ Johnathan Harris, Health Breakdown Man PUMP STITCHER,PRIMARY CARE 06/05/2024 11:22 /es/ Loretta Hanson DNP, PUTTIER-BC, CNL Primary Care Nurse Practitioner 06/08/2024 08:36 /es/ Jacey Moya MSN RN CNL Primary Care RN TANGELA GIRON [facility]
--- OUTSIDE RECORDS SUMMARY | 2024-07-17 16:44 | XMS_ITS | Encounter Summary ---
Author Name [facility] [place] Address [address] [facility], [place] [address] Care Team Providers Care Pick Up Operator Name Role Phone LORETTA HANSON Primary [...] [place] Aug 05, 2021 01 [phone] [id number] ELVIN WALSH PATIENT Selected Encounter This section includes the information on record at CT for the Encounter. Date/Time Encounter Type Encounter Description Reason Pro vider Source May 13, 2024 12:00 AM Outpatient Encounter EVENT (HISTORICAL) [...] 20 appointments. The data comes from all CT treatment facilities. Appointment Date/Time Appointment Type Appointme nt Facility Name May 21, 2024 11:00 AM AM[facility]ULATORY [facility] [place] [facility] May 22, 2024 01:30 PM AMBULATORY [facility] MEDICINE [facility] [place] [facility] May 29, 2024 02:00 PM AM[facility]ULATORY [facility] MEDICINE [facility] [place] [facility] Jun 05, 2024 10:00 AM AMBULATORY [facility] MEDICINE [facility] [place] [facility] Jun 05, 2024 02:00 PM AMBULATORY [facility] MEDICINE [facility] [place] [facility] Jun 05, 2024 02:45 PM AMBULATORY - NONE [facility] [place] [facility] Jun 17, 2024 08:00 AM AMBULATORY - PSYCHIATRY [facility] [place] [facility] Jun 18, 2024 08:30 AM AMBULATORY - MEDICINE [facility] [place] [facility] Jun 18, 2024 11:00 AM AMBULATORY - PSYCHIATRY [facility] [place] [facility] Jun 26, 2024 09:00 AM AMBULATORY [facility] MEDICINE [facility] [place] [facility] Jul 13, 2024 09:00 AM AMBULATORY - MEDICINE [facility] [facility] Jul 22, 2024 08:30 AM AMBULATORY - MEDICINE [facility] [facility] Oct 15, 2024 10:00 AM AMBULATORY - MEDICINE [facility] [place] [facility] Active, Pending, and Scheduled Orders This section includes a listing of several types of active, pending, and scheduled orders, including clinic medications orders, diagnostic test orders, procedure orders and consult orders; where the start date of the order is 45 days before the date of the Encounter or 45 days after the date of theEncounter. The data comes from all CT treatment facilities. Test Date/Time Test Type Test Details Facility Name Apr 24, 2024 12:00 AM Laboratory - Chemi stry Order OCCULT BLOOD FIT X1 SCREEN(IN-HOUSE) STOOL FECES SP [facility] [place] [facility] Jun 03, 2024 12:30 PM Consult Order DERMATOLOG Y/[facility] (OUTPT) Cons General Manager Food's Choice [facility] Jun 18, 2024 12:00 AM Laboratory - Chemi abramy Order DRUGS OF ABUSE URINE (DRUG) SP [facility] Lab Results: +/- 30 days of the encounter This section includes the Chemistry and Hematology Lab Results on record with CT for the patient. Radiology Reports and Pathology Reports are provided separately, in subsequent sections. Lab Results This section contains the Chemistry/Hematology Results that were resulted 30 days before or 30 daysafter the date of the Encounter. Date/Time Source Result Type Result - Unit Interpretation Reference Range Comment Jun 05, 2024 02:23 PM [facility] MICROSCOPIC AUTOMATED, URINE Specimen Type: URINE Comment: If Glucose = >500 and Ketones are positive, please alert the Physician. Ordering Provider: MAR HANSON Report Released Date/Time: Jun 05, 2024 02:02 PM Reporting Lab: [address] [address] Performing Lab: [address] [address] UA WBC 0-5 /[HPF] 0-5 UA MUCUS FEW /[LPF] Trace UA RBC 11-20 /[HPF] H 0-3 Jun 05, 2024 02:23 PM [facility] CT/GC DNA PANEL(IN-HOUSE) Specimen Type: URINE Comment: Test performed on the [employer] Genexpert. A negative test results does not exclude the possibility of infection because results may be affected by improper specimen collection, concurrent antibiotic therapy, or the number of organisms in the specimen which may be below the sensitivity of the test. Ordering Provider: MAR HANSON Report Released Date/Time: Jun 05, 2024 02:02 PM Reporting Lab: [address] [address] Performing Lab: [address] [address] GC PCR NOT DETECTED Not Detected CT PCR NOT DETECTED Not Detected Jun 05, 2024 02:23 PM [facility] URINALYSIS CLEAN CATCH Specimen Type: URINE Comment: If Glucose = >500 and Ketones are positive, please alert the Physician. Ordering Provider: MRA HANSON Report Released Date/Time: Jun 05, 2024 02:02 PM Reporting Lab: [facility] [address] [facility] [address] Performing Lab: [facility] [address] [facility] [address] UA COLOR Light-Yellow Yellow UA APPEARANCE Clear [...] and tobacco- related health factors from the CT facility where the Encounter took place. Current Smoking Status This section includes the most current smoking, or tobacco-related health factor, from the CT facility where the Encounter took place. Date/Time Current Smoking Status Comment Facil ity Aug 26, 2023 10:[address]-TOBACCO FORMER USER [facility] Tobacco Use History This section includes a history of the smoking, or tobacco-related health factors, that were collected on or before the date of the Encounter. The data comes from the CT facility where the Encounter took place. Date/Time Smoking Status/Tobacco Use Comment F acility Aug 26, 2023 10:[address]-TOBACCO QUIT 15 YRS OR MORE [facility] Apr 11, 2022 11:[address]-TOBACCO FORMER USER [facility] Apr 11, 2022 11:[address]-TOBACCO QUIT 15 YRS OR MORE [facility] Advance Directives: All historical and current Section Date Range: From patient's date of to the date document was created. This section includes ALL of a patient's completed or amended CT Advance and Rescinded Directives. The entries below indicate that a directive exists for the patient, but an actual copy is not included with this document. The data comes from all CT facilities. Date Advance Directives Provider Source May 16, 2011 ADVANCE DIRECTIVE DISCUSSION MANJITTONWally CONTRERAS Sep 27, 2005 ADVANCE DIRECTIVE NAHUMSHARLENECAMRYN [facility] Sep 10, 2005 ADVANCE DIRECTIVE DISCUSSION [facility] Aug 14, 2004 ADVANCE DIRECTIVE [...] the Encounter. The data comes from all CT treatment facilities. Date/Time Radiology Report Provider Source Jun 05, 2024 02:[address] ABDOMEN AND PELVIS WITHOUT CONT.: ELVIN REYNA [id number] -1975 Exm Date: JUN 05, 2024@14:27 Req Phys: LORETTA HANSON Loc: CWM/NO/PACT 7 (Req'g Loc) Img Loc: [facility]/CT Service: [facility] [place] [address] (Case [id number] COMPLETE) CT ABDOMEN AND PELVIS WITHOUT CON(CT Detailed) CPT:12633 Reason for Study: lower abdominal pain Clinical History: h/o kidney stone, having worsening pain Report Status: Verified Date Reported: JUN 07, 2024 Date Verified: JUN 07, 2024 Outside [employer] Sales Representatives E-Sig: Report: CT ABDOMEN AND PELVIS WITHOUT CONT. HISTORY: lower abdominal pain COMPARISON: 11/28/2091. TECHNIQUE: CT of the abdomen and pelvis with multiplanar reformats was performed at the local CT facility. 497 images were received by the CT National Teleradiology Program (NTP) for interpretation. RADIATION [...] read-back verification. READING PHYSICIAN: Rashida Hawk MD -[phone] 06/07/2024 6:44 PST [facility] National Teleradiology Program [phone] (For Medical Practitioner Use Only) Attention Patients / Veterans: If you have questions or concerns about these test results, please contact your ordering provider or primary care team. Primary Diagnostic Code: CRITICAL ABNORMALITY Primary Interpreting Staff: RADIOLOGY,OUTSIDE SERVICE, Staff Physician / RADIOLOGY,OUTSIDE SERVICE [facility] Pathology Reports: +/- 30 days [...] the Encounter. The data comes from all CT treatment facilities. Date/Time Pathology Report Provider Source Jun 05, 2024 02:23 PM LR MICROBIOLOGY REPORT: Reporting Lab: [facility] [CLIA# [id number]] [address] [place] [id number] Accession [UID]: [id number] [[id number]] Received: Jun 05, 2024@14:23 Collection sample: URINE CLEAN CATCH Collection date: Jun 05, 2024 14:23 Site/Specimen: URINE Provider: LORETTA HANSON Test(s) ordered: URINE CULTURE(MWROX).......... completed: Jun 08, 2024 09:02 * BACTERIOLOGY FINAL REPORT => Jun 08, 2024 09:02 TECH CODE: [id number] Bacteriology Remark(s): NO GROWTH IN 24 HOURS, FINAL REPORT TO FOLLOW. FINAL AEROBIC REPORT: NO GROWTH =--=--=--=--=--=--=--=--=--= --=--=--=--=--=--=--=--=--=- -=--=--=--=--=--=--=-- Performing Laboratory: Bacteriology Report Performed By: [facility] [CLIA# [id number]] [address] [place] [phone] CYRUS ESPINOZA [facility] Jun 02, 2024 11:29 AM LR SURGICAL PATHOLOGY REPORT: LOCAL TITLE: LR SURGICAL PATHOLOGY REPORT STANDARD TITLE: PATHOLOGY DIAGNOSTIC STUDY REPORT DATE OF NOTE: JUN 02, 2024@11:29:44 ENTRY DATE: JUN 02, 2024@11:29:44 AUTHOR: MAGDALENA STOCKTON MD EXP COSIGNER: URGENCY: STATUS: COMPLETED $APHDR Reporting Lab: [facility] [CLIA# [id number]] [address] [place] [phone] - - - - - - - [...] - - - - - PREOPERATIVE DIAGNOSIS: 533 nEW, EXOPHYTIC, BOTHERSOME SKIN LESION MIDLINE [...] [place] 25 [id number];;1;Melinda REYNA This is a [facility] case number [facility] 24 [...] lower back: Hemangioma, completely excised. CPT code 78381 /es/ MAGDALENA STOCKTON MD Board Certified Dermatopathologist Signed Jun 02, 2024@11:29 Performing Laboratory: Surgical Pathology Report Performed By: [facility] [CLIA# [id number]] [address] [place] [phone] $FTR - - - - - - [...] - ELVIN REYNA JR STANDARD FORM 515 ID:[id number] SEX:M :1975 AGE: 48 LOC:CWM/NO/GS PCP: Loretta Hanson, LIFE SCIENCES TEACHER /es/ MAGDALENA STOCKTON MD Board Certified Dermatopathologist Signed: 06/02/2024 11:29 MAGDALENA STOCKTON MD [facility] Encounter Notes: All associated encounter notes This section contains the clinical notes associated to the Encounter. Date/Time Encounter Note(s) Provider Source May 13, 2024 12:00 AM NONVA NOTE: LOCAL TITLE: NON-VA HOSPITALIZATIONS/ER STANDARD TITLE: NONVA NOTE DATE OF NOTE: MAY 13, 2024 ENTRY DATE: JUN 04, 2024@11:53:29 AUTHOR: ALMA GARRETT EXP COSIGNER: URGENCY: STATUS: COMPLETED VistA Imaging - Scanned Document SCANNED DOCUMENT SIGNATURE NOT REQUIRED Electronically Filed: 06/04/2024 by: ALMA GARRETT QUAD STAYER ALMA GARRETT [facility]
--- OUTSIDE RECORDS SUMMARY | 2024-07-17 16:44 | XMS_ITS | Encounter Summary ---
Author Name [facility] [place] Address [address] [facility], [place] [address] Care Team Providers Care Sales Agent Insurance Name Role Phone LORETTA HANSON Primary Care [...] [place] Aug 05, 2021 01 [phone] ELVIN WALSH PATIENT Selected Encounter This section includes the information on record at [place] for the Encounter. Date/Time Encounter Type Encounter Description Reason Pro vider Source May 29, 2024 02:34 PM Outpatient Encounter EVENT (HISTORICAL) IHE Encounter [...] 20 appointments. The data comes from all [place] treatment facilities. Appointment Date/Time Appointment Type Appointme nt Facility Name Jun 05, 2024 10:00 AM AMBULATORY [place] MEDICINE [facility] [place] [facility] Jun 05, 2024 02:00 PM AMBULATORY - MEDICINE [facility] [place] [facility] Jun 05, 2024 02:45 PM AMBULATORY - NONE [facility] [place] [facility] Jun 17, 2024 08:00 AM AMBULATORY - PSYCHIATRY [facility] [place] [facility] Jun 18, 2024 08:30 AM AMBULATORY - MEDICINE [facility] [place] [facility] Jun 18, 2024 11:00 AM AMBULATORY - PSYCHIATRY [facility] [place] [facility] Jun 26, 2024 09:00 AM AMBULATORY - MEDICINE [facility] [place] [facility] Jul 13, 2024 09:00 AM AMBULATORY - MEDICINE [facility] [place] [facility] Jul 22, 2024 08:30 AM AMBULATORY - MEDICINE [facility] [place] [facility] Oct 15, 2024 10:00 AM AMBULATORY - MEDICINE [facility] [place] [facility] Active, Pending, and Scheduled Orders This section includes a listing of several types of active, pending, and scheduled orders, including clinic medications orders, diagnostic test orders, procedure orders and consult orders; where the start date of the order is 45 days before the date of the Encounter or 45 days after the date of theEncounter. The data comes from all [place] treatment facilities. Test Date/Time Test Type Test Details Facility Name Apr 24, 2024 12:00 AM Laboratory - Chemistry Order OCCULT BLOOD FIT X1 SCREEN(IN-HOUSE) STOOL FECES SP [facility] [place] [facility] Jun 03, 2024 12:30 PM Consult Order DERMATOLOGY/[facility] (OUTPT) Cons Enterprise Project Manager's Choice [facility] [place] [facility] Jun 18, 2024 12:00 AM Laboratory - Chemistry Order DRUGS OF ABUSE URINE (DRUG) SP [facility] [place] [facility] Jun 30, 2024 01:22 PM Consult Order [facility]- PSYCHOTHERAPY Cons Enterprise Project Manager's Choice [facility] [place] [facility] Lab Results: +/- 30 days of the encounter This section includes the Chemistry and Hematology Lab Results on record with [place] for the patient. Radiology Reports and Pathology Reports are provided separately, in subsequent sections. Lab Results This section contains the Chemistry/Hematology Results that were resulted 30 days before or 30 daysafter the date of the Encounter. Date/Time Source Result Type Result - Unit Interpretation Reference Range Comment Jun 05, 2024 02:23 PM [facility] CT/GC DNA PANEL(IN-HOUSE) Specimen Type: URINE Comment: Test performed on the [employer] Genexpert. A negative test results does not exclude the possibility of infection because results may be affected by improper specimen collection, concurrent antibiotic therapy, or the number of organisms in the specimen which may be below the sensitivity of the test. Ordering Provider: MAR HANSON Report Released Date/Time: Jun 05, 2024 02:02 PM Reporting Lab: [address] [address] Performing Lab: [address] [address] GC PCR NOT DETECTED Not Detected CT PCR NOT DETECTED Not Detected Jun 05, 2024 02:23 PM [facility] MICROSCOPIC AUTOMATED, URINE Specimen Type: URINE Comment: If Glucose = >500 and Ketones are positive, please alert the Physician. Ordering Provider: MAR HANSON Report Released Date/Time: Jun 05, 2024 02:02 PM Reporting Lab: [address] [address] Performing Lab: [address] [address] UA WBC 0-5 /[HPF] 0-5 UA MUCUS FEW /[LPF] Trace UA RBC 11-20 /[HPF] H 0-3 Jun 05, 2024 02:23 PM [facility] URINALYSIS CLEAN CATCH Specimen Type: URINE Comment: If Glucose = >500 and Ketones are positive, please alert the Physician. Ordering Provider: MAR HANSON Report Released Date/Time: Jun 05, 2024 02:02 PM Reporting Lab: [facility] [address] [facility] [address] Performing Lab: [facility] [address] [facility] [address] UA COLOR Light-Yellow Yellow UA APPEARANCE Clear [...] PM 98.5 96 123/87 18 97 0 [facility] Social History: Smoking Status (Most current) and Tobacco Use (All prior to encounter date) This section includes the most current, and the historical, smoking and tobacco- related health factors from the [place] facility where the Encounter took place. Current Smoking Status This section includes the most current smoking, or tobacco-related health factor, from the [place] facility where the Encounter took place. Date/Time Current Smoking Status Comment Terri ity Aug 26, 2023 10:00 AM PA-TOBACCO FORMER USER [facility] Tobacco Use History This section includes a history of the smoking, or tobacco-related health factors, that were collected on or before the date of the Encounter. The data comes from the [place] facility where the Encounter took place. Date/Time Smoking Status/Tobacco Use Comment F acility Aug 26, 2023 10:00 AM PA-TOBACCO QUIT 15 YRS OR MORE [facility] Apr 11, 2022 11:00 AM VA-TOBACCO FORMER USER [facility] Apr 11, 2022 11:00 AM PA-TOBACCO QUIT 15 YRS OR MORE [facility] Advance Directives: All historical and current Section Date Range: From patient's date of to the date document was created. This section includes ALL of a patient's completed or amended [place] Advance and Rescinded Directives. The entries below indicate that a directive exists for the patient, but an actual copy is not included with this document. The data comes from all [place] facilities. Date Advance Directives Provider Source May 16, 2011 ADVANCE DIRECTIVE DISCUSSION MANIJTTON DIANE Sep 27, 2005 ADVANCE DIRECTIVE NAHUMSHARLENE Lo [facility] Sep 10, 2005 ADVANCE DIRECTIVE DISCUSSION FRANCE RODRIGEZ [facility] Aug 14, 2004 ADVANCE DIRECTIVE DISCUSSION REGULO AGUILAR ROSA CONTRERAS Radiology Reports: +/- 30 days of [...] the Encounter. The data comes from all [place] treatment facilities. Date/Time Radiology Report Provider Source Jun 05, 2024 02:[address] ABDOMEN AND PELVIS WITHOUT CONT.: ELVIN REYNA [id number] -1975 M Exm Date: JUN 05, 2024@14:27 Req Phys: LORETTA HANSON Loc: CWM/NO/PACT 7 (Req'g Loc) Img Loc: [facility]/CT Service: [place] [address] (Case [id number] COMPLETE) CT ABDOMEN AND PELVIS WITHOUT CON(CT Detailed) CPT:20936 Reason for Study: lower abdominal pain Clinical History: h/o kidney stone, having worsening pain Report Status: Verified Date Reported: JUN 07, 2024 Date Verified: JUN 07, 2024 Top Spotter E-Sig: Report: CT ABDOMEN AND PELVIS WITHOUT CONT. HISTORY: lower abdominal pain COMPARISON: 11/28/2091. TECHNIQUE: CT of the abdomen and pelvis with multiplanar reformats was performed at the local [place] facility. 497 images were received by the [place] National Teleradiology Program (NTP) for interpretation. RADIATION [...] read-back verification. READING PHYSICIAN: Rashida Hawk MD -[phone] 06/07/2024 6:44 PST [facility] National Teleradiology Program [phone] (For Medical Practitioner Use Only) Attention Patients / Veterans: If you have questions or concerns about these test results, please contact your ordering provider or primary care team. Primary Diagnostic Code: CRITICAL ABNORMALITY Primary Interpreting Staff: RADIOLOGY,OUTSIDE SERVICE, Staff Physician / RADIOLOGY,OUTSIDE SERVICE [facility] Pathology Reports: +/- 30 days of [...] the Encounter. The data comes from all [place] treatment facilities. Date/Time Pathology Report Provider Source Jun 05, 2024 02:23 PM LR MICROBIOLOGY REPORT: Reporting Lab: [facility] [CLIA# [id number]] [address] [place] [address] Accession [UID]: [id number] [[id number]] Received: Jun 05, 2024@14:23 Collection sample: URINE CLEAN CATCH Collection date: Jun 05, 2024 14:23 Site/Specimen: URINE Provider: LORETTA HANSON Test(s) ordered: URINE CULTURE(MWROX).......... completed: Jun 08, 2024 09:02 * BACTERIOLOGY FINAL REPORT => Jun 08, 2024 09:02 TECH CODE: [id number] Bacteriology Remark(s): NO GROWTH IN 24 HOURS, FINAL REPORT TO FOLLOW. FINAL AEROBIC REPORT: NO GROWTH =--=--=--=--=--=--=--=--=--= --=--=--=--=--=--=--=--=--=- -=--=--=--=--=--=--=-- Performing Laboratory: Bacteriology Report Performed By: [facility] [CLIA# [id number]] [address] [place] [phone] CYRUS ESPINOZA [facility] Jun 02, 2024 11:29 AM LR SURGICAL PATHOLOGY REPORT: LOCAL TITLE: LR SURGICAL PATHOLOGY REPORT STANDARD TITLE: PATHOLOGY DIAGNOSTIC STUDY REPORT DATE OF NOTE: JUN 02, 2024@11:29:44 ENTRY DATE: JUN 02, 2024@11:29:44 AUTHOR: MAGDALENA STOCKTON MD EXP COSIGNER: URGENCY: STATUS: COMPLETED $APHDR Reporting Lab: [facility] [CLIA# [id number]] [address] [place] [address] - - - - - - - [...] - - - PATHOLOGY REPORT [facility] 533 - - - - - [...] - - - PATHOLOGY REPORT Accession No. [facility] 24 533 - - - - - - - - - - - - - - - - - - - - - - - - - - - - - - - - - - - - - - - - Gross description: [facility] 25 [id number];;1;Melinda REYNA This is a [facility] case number [facility] 24 533. Received in formalin labeled with [...] lower back: Hemangioma, completely excised. CPT code 09939 /es/ MAGDALENA STOCKTON MD Board Certified Dermatopathologist Signed Jun 02, 2024@11:29 Performing Laboratory: Surgical Pathology Report Performed By: [facility] [CLIA# [id number]] [address] [place] [address] $FTR - - - - - - [...] - ELVIN REYNA JR STANDARD FORM 515 ID:[id number] SEX:M :1975 AGE: 48 LOC:CWM/NO/GS PCP: Loretta Hanson NP /roberto/ MAGDALENA STOCKTON MD Board Certified Dermatopathologist Signed: 06/02/2024 11:29 MAGDALENA STOCKTON MD [facility]
--- OUTSIDE RECORDS SUMMARY | 2024-07-17 16:44 | XMS_ITS | Encounter Summary ---
Author Name [facility] [facility] [place] Address [address], [place] [address] Care Team Providers Care Rail Signal Worker Name Role Phone LORETTA HANSON Primary Care [...] [place] Aug 05, 2021 01 [phone] [id number] ELVIN WALSH PATIENT Selected Encounter This section includes the information on record at [place] for the Encounter. Date/Time Encounter Type Encounter Description Reason Pro vider Source May 29, 2024 03:09 PM Outpatient Encounter PRIMARY CARE/MEDICINE IHE Encounter Template Text not used by [place] Plan of Treatment: Future Appointments (+ 6 [...] 20 appointments. The data comes from all [place] treatment facilities. Appointment Date/Time Appointment Type Appointme nt Facility Name Jun 05, 2024 10:00 AM AMBULATORY [facility]ICINE [facility] [place] [facility] Jun 05, 2024 02:00 PM AMBULATORY - MEDICINE [facility] [place] [facility] Jun 05, 2024 02:45 PM AMBULATORY - NONE [facility] [place] [facility] Jun 17, 2024 08:00 AM AMBULATORY - PSYCHIATRY [facility] [place] [facility] Jun 18, 2024 08:30 AM AMBULATORY - MEDICINE [facility] [place] [facility] Jun 18, 2024 11:00 AM AMBULATORY - PSYCHIATRY [facility] [place] [facility] Jun 26, 2024 09:00 AM AMBULATORY - MEDICINE [facility] [place] [facility] Jul 13, 2024 09:00 AM AMBULATORY - MEDICINE [facility] [place] [facility] Jul 22, 2024 08:30 AM AMBULATORY - MEDICINE [facility] [place] [facility] Oct 15, 2024 10:00 AM AMBULATORY - MEDICINE [facility] [place] [facility] Active, Pending, and Scheduled Orders This section includes a listing of several types of active, pending, and scheduled orders, including clinic medications orders, diagnostic test orders, procedure orders and consult orders; where the start date of the order is 45 days before the date of the Encounter or 45 days after the date of theEncounter. The data comes from all [place] treatment facilities. Test Date/Time Test Type Test Details Facility Name Apr 24, 2024 12:00 AM Laboratory - Chemistry Order OCCULT BLOOD FIT X1 SCREEN(IN-HOUSE) STOOL FECES SP [facility] [place] [facility] Jun 03, 2024 12:30 PM Consult Order DERMATOLOGY/[facility] (OUTPT) Cons Broaching Machine Repairer's Choice [facility] [place] [facility] Jun 18, 2024 12:00 AM Laboratory - Chemistry Order DRUGS OF ABUSE URINE (DRUG) SP [facility] [place] [facility] Jun 30, 2024 01:22 PM Consult Order [facility]- PSYCHOTHERAPY Cons Broaching Machine Repairer's Choice [facility] [place] [facility] Lab Results: +/- 30 days of the encounter This section includes the Chemistry and Hematology Lab Results on record with [place] for the patient. Radiology Reports and Pathology [...] Type: URINE Comment: Test performed on the Loladex Genexpert. A negative test results does not exclude the possibility of infection because results may be affected by improper specimen collection, concurrent antibiotic therapy, or the number of organisms in the specimen which may be below the sensitivity of the test. Ordering Provider: MAR HANSON Report Released Date/Time: Jun 05, 2024 02:02 PM Reporting Lab: [address] [address] Performing Lab: [address] [address] GC PCR NOT DETECTED Not Detected CT PCR NOT DETECTED Not Detected Jun 05, 2024 02:23 PM [facility] MICROSCOPIC AUTOMATED, URINE Specimen Type: URINE Comment: If Glucose = >500 and Ketones are positive, please alert the Physician. Ordering Provider: MAR HANSON Report Released Date/Time: Jun 05, 2024 02:02 PM Reporting Lab: [address] [address] Performing Lab: [address] [address] UA WBC 0-5 /[HPF] 0-5 UA MUCUS FEW /[LPF] Trace UA RBC 11-20 /[HPF] H 0-3 Jun 05, 2024 02:23 PM [facility] URINALYSIS CLEAN CATCH Specimen Type: URINE Comment: If Glucose = >500 and Ketones are positive, please alert the Physician. Ordering Provider: MAR HANSON Report Released Date/Time: Jun 05, 2024 02:02 PM Reporting Lab: [facility] [address] [address] Performing Lab: [facility] [address] [facility] [address] UA COLOR Light-Yellow Yellow UA APPEARANCE Clear [...] PM 98.5 96 123/87 18 97 0 [facility] Social History: Smoking Status (Most current) and Tobacco Use (All prior to encounter date) This section includes the most current, and the historical, smoking and tobacco- related health factors from the [place] facility where the Encounter took place. Current Smoking Status This section includes the most current smoking, or tobacco-related health factor, from the [place] facility where the Encounter took place. Date/Time Current Smoking Status Comment Terri ity Aug 26, 2023 10:00 AM [place]-TOBACCO FORMER USER [facility] Tobacco Use History This section includes a history of the smoking, or tobacco-related health factors, that were collected on or before the date of the Encounter. The data comes from the [place] facility where the Encounter took place. Date/Time Smoking Status/Tobacco Use Comment F acility Aug 26, 2023 10:00 AM [place]-TOBACCO QUIT 15 YRS OR MORE [facility] Apr 11, 2022 11:00 AM [place]-TOBACCO FORMER USER [facility] Apr 11, 2022 11:00 AM [place]-TOBACCO QUIT 15 YRS OR MORE [facility] Advance Directives: All historical and current Section Date Range: From patient's date of to the date document was created. This section includes ALL of a patient's completed or amended [place] Advance and Rescinded Directives. The entries below indicate that a directive exists for the patient, but an actual copy is not included with this document. The data comes from all [place] facilities. Date Advance Directives Provider Source May 16, 2011 ADVANCE DIRECTIVE DISCUSSION MANJITTON DIANE Sep 27, 2005 ADVANCE DIRECTIVE NAHUMSHARLENE Lo [facility] Sep 10, 2005 ADVANCE DIRECTIVE DISCUSSION FRANCE RODRIGEZ [facility] Aug 14, 2004 ADVANCE DIRECTIVE [...] the Encounter. The data comes from all [place] treatment facilities. Date/Time Radiology Report Provider Source Jun 05, 2024 02:[address] ABDOMEN AND PELVIS WITHOUT CONT.: ELVIN REYNA [id number] -[id number] M Exm Date: JUN 05, 2024@14:27 Req Phys: LORETTA HANSON Loc: CWM/NO/PACT 7 (Req'g Loc) Img Loc: [facility]/CT Service: [place] [address] (Case [id number] COMPLETE) CT ABDOMEN AND PELVIS WITHOUT CON(CT Detailed) CPT:55177 Reason for Study: lower abdominal pain Clinical History: h/o kidney stone, having worsening pain Report Status: Verified Date Reported: JUN 07, 2024 Date Verified: JUN 07, 2024 Marketing Automation Specialist E-Sig: Report: CT ABDOMEN AND PELVIS WITHOUT CONT. HISTORY: lower abdominal pain COMPARISON: 11/28/2091. TECHNIQUE: CT of the abdomen and pelvis with multiplanar reformats was performed at the local [place] facility. 497 images were received by the [place] National Teleradiology Program (NTP) for interpretation. RADIATION [...] read-back verification. READING PHYSICIAN: Rashida Hawk MD -[phone] 06/07/2024 6:44 PST [facility] National Teleradiology Program [phone] (For Medical Practitioner Use Only) Attention Patients / Veterans: If you have questions or concerns about these test results, please contact your ordering provider or primary care team. Primary Diagnostic Code: CRITICAL ABNORMALITY Primary Interpreting Staff: RADIOLOGY,OUTSIDE SERVICE, Staff Physician / RADIOLOGY,OUTSIDE SERVICE [facility] Pathology Reports: +/- 30 days of [...] the Encounter. The data comes from all [place] treatment facilities. Date/Time Pathology Report Provider Source Jun 05, 2024 02:23 PM LR MICROBIOLOGY REPORT: Reporting Lab: [facility] [CLIA# [id number]] [address] [place] [address] Accession [UID]: [id number] [[id number]] Received: Jun 05, 2024@14:23 Collection sample: URINE CLEAN CATCH Collection date: Jun 05, 2024 14:23 Site/Specimen: URINE Provider: LORETTA HANSON Test(s) ordered: URINE CULTURE(MWROX).......... completed: Jun 08, 2024 09:02 * BACTERIOLOGY FINAL REPORT => Jun 08, 2024 09:02 TECH CODE: [id number] Bacteriology Remark(s): NO GROWTH IN 24 HOURS, FINAL REPORT TO FOLLOW. FINAL AEROBIC REPORT: NO GROWTH =--=--=--=--=--=--=--=--=--= --=--=--=--=--=--=--=--=--=- -=--=--=--=--=--=--=-- Performing Laboratory: Bacteriology Report Performed By: [facility] [CLIA# [id number]] [address] [place] [id number] CYRUS ESPINOZA [facility] Jun 02, 2024 11:29 AM LR SURGICAL PATHOLOGY REPORT: LOCAL TITLE: LR SURGICAL PATHOLOGY REPORT STANDARD TITLE: PATHOLOGY DIAGNOSTIC STUDY REPORT DATE OF NOTE: JUN 02, 2024@11:29:44 ENTRY DATE: JUN 02, 2024@11:29:44 AUTHOR: MAGDALENA STOCKTON MD EXP COSIGNER: URGENCY: STATUS: COMPLETED $APHDR Reporting Lab: [facility] [CLIA# [id number]] [address] [place] [address] - - - - - - - [...] - - - PATHOLOGY REPORT [facility] - - - - [...] - - - PATHOLOGY REPORT Accession No. [facility] 24 533 - - - - - - - - - - - - - - - - - - - - - - - - - - - - - - - - - - - - - - - - Gross description: [facility] 25 [id number];;1;Melinda REYNA This is a [facility] case number [facility] [id number]. Received in formalin [...] lower back: Hemangioma, completely excised. CPT code 10397 /es/ MAGDALENA STOCKTON MD Board Certified Dermatopathologist Signed Jun 02, 2024@11:29 Performing Laboratory: Surgical Pathology Report Performed By: [facility] [CLIA# [id number]] [address] [place] [address] $FTR - - - - - - [...] - ELVIN REYNA JR STANDARD FORM 515 ID:[id number] SEX:M :1975 AGE: 48 LOC:CWM/NO/GS PCP: Loretta Hanson, BEAM SAW OPERATOR /roberto/ MAGDALENA STOCKTON MD Board Certified Dermatopathologist Signed: 06/02/2024 11:29 MAGDALENA STOCKTON MD [facility] [place] [facility] Encounter Notes: All associated encounter notes This section contains the clinical notes associated to the Encounter. Date/Time Encounter Note(s) Provider Source Jun 03, 2024 11:44 AM ADDENDUM: LOCAL TITLE: Addendum STANDARD TITLE: ADDENDUM DATE OF NOTE: JUN 03, 2024@11:44:29 ENTRY DATE: JUN 03, 2024@11:44:31 AUTHOR: JONH GARRETT COSIGNER: URGENCY: STATUS: COMPLETED Called pt to schedule his TeleDermatology consult but that lesion was removed. Pt states he is more concerned about several skin tags in both armpits and lots of moles and skin tags all over my back. TCT let pt know that's too large of an area for telederm, it's more for a specific lesion of concern (up to 3 per cons). Pt does want to have a f2f with dermatology but doesn't want to wait until December or next avail unless the electromechanical inspector says it's ok to wait. TCT can try to take wider photos and not go down to the dermoscopy level but I'm not sure the telederm reader will find that helpful. /roberto/ JONH GARRETT TELEHEALTH CLINICAL TYPEWRITER ASSEMBLY AND PARTS INSPECTOR Signed: 06/03/2024 12:03 Receipt Acknowledged By: 06/03/2024 12:29 /roberto/ Loretta Hanson DNP, IT ARCHITECT-BC, CNL Primary Care Nurse Practitioner 06/04/2024 08:29 /es/ INGRID STREETER REGISTERED NURSE for INGRID MOYA --- Original Document --- 05/29/24 ADMINISTRATIVE NOTE: presented to Primary Care regarding the following: expressed interest in seeing Telederm for imaging of various skin conditions that he is concerned about that do not necessarily require surgical removal at this time. The above information was on CPRS note dated 05/22/24 - [place] asking for another consult for Telederm to address his other concerns. Please review and advise. /es/ TANGELA SHARLENE GIRON TARYN Signed: 05/29/2024 15:11 Receipt Acknowledged By: 06/01/2024 14:15 /es/ Johnathan Harris, Health Diet Aid SALESPERSON TERRAZZO TILES,PRIMARY CARE 05/29/2024 15:44 /es/ Ingrid Moya MSN RN CNL Primary Care RN 05/29/2024 ADDENDUM STATUS: COMPLETED Per consult entered 04/24 for telederm by PCP which was rerouted to general surgery: PCP can enter TeleDerm consult for mole-specific if concerned. Otherwise, scheduling routine f2f with Derm at next consult is appropriate. Vet in surgical note requesting telederm consult for mole concerns. Will alert PCP to request for telederm consult to be entered again. /roberto/ Ingrid Moya MSN RN CNL Primary Care RN Signed: 05/29/2024 15:44 Receipt Acknowledged By: 06/02/2024 10:18 /es/ Loretta Hanson DNP, IT ARCHITECT-BC, CNL Primary Care Nurse Practitioner JONH GARRETT [place] [facility] [place] [facility] May 29, 2024 03:42 PM ADDENDUM: LOCAL TITLE: Addendum STANDARD TITLE: ADDENDUM DATE OF NOTE: MAY 29, 2024@15:42:56 ENTRY DATE: MAY 29, 2024@15:42:56 AUTHOR: INGRID MOYA EXP COSIGNER: URGENCY: STATUS: COMPLETED Per consult entered 04/24 for telederm by PCP which was rerouted to general surgery: PCP can enter TeleDerm consult for mole-specific if concerned. Otherwise, scheduling routine f2f with Derm at next consult is appropriate. Vet in surgical note requesting telederm consult for mole concerns. Will alert PCP to request for telederm consult to be entered again. /roberto/ Ingrid Moya MSN RN CNL Primary Care RN Signed: 05/29/2024 15:44 Receipt Acknowledged By: 06/02/2024 10:18 /es/ Loretta Hanson DNP, IT ARCHITECT-, CNL Primary Care Nurse Practitioner --- Original Document --- 05/29/24 ADMINISTRATIVE NOTE: presented to Primary Care regarding the following: [place] expressed interest in seeing Telederm for imaging of various skin conditions that he is concerned about that do not necessarily require surgical removal at this time. The above information was on CPRS note dated 05/22/24 - asking for another consult for Telederm to address his other concerns. Please review and advise. /roberto/ TANGELA CENTENO Signed: 05/29/2024 15:11 Receipt Acknowledged By: 06/01/2024 14:15 /es/ Johnathan Harris, Health Diet Aid SALESPERSON TERRAZZO TILES,PRIMARY CARE 05/29/2024 15:44 /es/ Ingrid ESTRADA RN CNL Primary Care RN INGRID MOYA [facility] [place] [facility] May 29, 2024 03:09 PM ADMINISTRATIVE NOTE: LOCAL TITLE: ADMINISTRATIVE NOTE STANDARD TITLE: ADMINISTRATIVE NOTE DATE OF NOTE: MAY 29, 2024@15:09 ENTRY DATE: MAY 29, 2024@15:09:50 AUTHOR: TANGELA GIRON EXP COSIGNER: URGENCY: STATUS: COMPLETED ADMINISTRATIVE NOTE Has ADDENDA [place] presented to Primary Care regarding the following: expressed interest in seeing Telederm for imaging of various skin conditions that he is concerned about that do not necessarily require surgical removal at this time. The above information was on CPRS note dated 05/22/24 - [place] asking for another consult for Telederm to address his other concerns. Please review and advise. /roberto/ TANGELA CENTENO Signed: 05/29/2024 15:11 Receipt Acknowledged By: 06/01/2024 14:15 /es/ Johnathan Harris, Health Diet Aid SALESPERSON TERRAZZO TILES,PRIMARY CARE 05/29/2024 15:44 /es/ Ingrid Moya MSN RN CNL Primary Care RN 05/29/2024 ADDENDUM STATUS: COMPLETED Per consult entered 04/24 for telederm by PCP which was rerouted to general surgery: PCP can enter TeleDerm consult for mole-specific if concerned. Otherwise, scheduling routine f2f with Derm at next consult is appropriate. Vet in surgical note requesting telederm consult for mole concerns. Will alert PCP to request for telederm consult to be entered again. /es/ Ingrid Moya MSN RN CNL Primary Care RN Signed: 05/29/2024 15:44 Receipt Acknowledged By: 06/02/2024 10:18 /es/ Loretta Hanson DNP, IT ARCHITECT-BC, CNL Primary Care Nurse Practitioner 06/03/2024 ADDENDUM STATUS: COMPLETED Called pt to schedule his TeleDermatology consult but that lesion was removed. Pt states he is more concerned about several skin tags in both armpits and lots of moles and skin tags all over my back. TCT let pt know that's too large of an area for telederm, it's more for a specific lesion of concern (up to 3 per cons). Pt does want to have a f2f with dermatology but doesn't want to wait until December or next avail unless the electromechanical inspector says it's ok to wait. TCT can try to take wider photos and not go down to the dermoscopy level but I'm not sure the telederm reader will find that helpful. /es/ JONH GARRETT TELEHEALTH CLINICAL TYPEWRITER ASSEMBLY AND PARTS INSPECTOR Signed: 06/03/2024 12:03 Receipt Acknowledged By: * AWAITING SIGNATURE * LORETTA HANSON * AWAITING SIGNATURE * INGRID MOYA PATRICIA JEAN [facility]
--- OUTSIDE RECORDS SUMMARY | 2024-07-17 16:45 | XMS_ITS | Encounter Summary ---
Author Name [facility] [place] Address [address] [place] [address] Care Team Providers Care Ophthalmic Assistant Name Role Phone LORETTA HANSON Primary [...] Gonzalez's Name Patient's Relationship to Policy Gonzalez [facility] Aug 05, 2021 01 [id number] ELVIN WALSH PATIENT Selected Encounter This section includes the information on record at [place] for the Encounter. Date/Time Encounter Type Encounter Description Reason Pro vider Source Jun 06, 2024 10:25 AM Outpatient Encounter TELEPHONE TRIAGE IHE Encounter Template Text not used by [...] 17, 2024 08:00 AM AMBULATORY - [place]ATRY [place] [facility] Jun 18, 2024 08:30 AM AMBULATORY - MEDICINE [place] [facility] Jun 18, 2024 11:00 AM AMBULATORY - [place]IATRY [place] [facility] Jun 26, 2024 09:00 AM AMBULATORY - MEDICINE [place] [facility] Jul 13, 2024 09:00 AM AMBULATORY - MEDICINE [place] [facility] Jul 22, 2024 08:30 AM AMBULATORY - MEDICINE [place] [facility] Oct 15, 2024 10:00 AM AMBULATORY MEDICINE [facility] Active, Pending, and Scheduled Orders This [...] OCCULT BLOOD FIT X1 SCREEN(IN-HOUSE) STOOL FECES [facility] [place] [facility] Jun 03, 2024 12:30 PM Consult Order DERMATOLOGY/NHM (OUTPT) Cons [facility]health [facility] [place] [place] [facility] Jun 18, 2024 12:00 AM Laboratory - Chemistry Order DRUGS OF ABUSE URINE (DRUG) SP [facility] [place] [place] [facility] Jun 30, 2024 01:22 PM Consult Order COMMUNITY CARE- PSYCHOTHERAPY Cons Telehealth [facility] Lab Results: +/- 30 days [...] Range Comment Jun 05, 2024 02:23 PM [facility] CT/GC DNA PANEL(IN-HOUSE) Specimen Type: URINE Comment: Test performed on the ThermoCeramix Genexpert. A negative test results does not exclude the possibility of infection because results may be affected by improper specimen collection, concurrent antibiotic therapy, or the number of organisms in the specimen which may be below the sensitivity of the test. Ordering Provider: MAR HANSON Report Released Date/Time: Jun 05, 2024 02:02 PM Reporting Lab: [address] [address] Performing Lab: [address] [address] GC PCR NOT DETECTED Not Detected CT PCR NOT DETECTED Not Detected Jun 05, 2024 02:23 PM [facility] MICROSCOPIC AUTOMATED, URINE Specimen Type: URINE Comment: If Glucose = >500 and Ketones are positive, please alert the Physician. Ordering Provider: MAR HANSON Report Released Date/Time: Jun 05, 2024 02:02 PM Reporting Lab: [address] [address] Performing Lab: [address] [address] UA WBC 0-5 /[HPF] 0-5 UA MUCUS FEW /[LPF] Trace UA RBC 11-20 /[HPF] H 0-3 Jun 05, 2024 02:23 PM [facility] URINALYSIS CLEAN CATCH Specimen Type: URINE Comment: If Glucose = >500 and Ketones are positive, please alert the Physician. Ordering Provider: MAR HANSON Report Released Date/Time: Jun 05, 2024 02:02 PM Reporting Lab: [address] [address] Performing Lab: [address] [address] UA COLOR Light-Yellow Yellow UA APPEARANCE Clear [...] 26, 2023 10:00 AM [place]-TOBACCO FORMER USER [facility] Tobacco Use History This section includes a history of the smoking, or tobacco-related health factors, that were collected on or before the date of the Encounter. The data comes from the [place] facility where the Encounter took place. Date/Time Smoking Status/Tobacco Use Comment F acility Aug 26, 2023 10:00 AM [place]-TOBACCO QUIT 15 YRS OR MORE [facility] Apr 11, 2022 11:00 AM [place]-TOBACCO FORMER USER [facility] Apr 11, 2022 11:00 AM [place]-TOBACCO QUIT 15 YRS OR MORE [facility] Advance Directives: All historical and [...] 2005 ADVANCE DIRECTIVE SHARLENE SIDHU [facility] Sep 10, 2005 ADVANCE DIRECTIVE DISCUSSION FRANCE RODRIGEZ [facility] Aug 14, 2004 ADVANCE DIRECTIVE [...] ABDOMEN AND PELVIS WITHOUT CONT.: ELVIN REYNA [id number] -1975 M Exm Date: JUN 05, 2024@14:27 Req Phys: LORETTA HANSON Loc: CWM/NO/PACT 7 (Req'g Loc) Img Loc: [place]/CT Service: [facility] [place] [address] (Case [id number] COMPLETE) CT ABDOMEN AND PELVIS WITHOUT CON(CT Detailed) CPT:58587 Reason for Study: lower abdominal pain Clinical History: h/o kidney stone, having worsening pain Report Status: Verified Date Reported: JUN 07, 2024 Date Verified: JUN 07, 2024 Eap Clinician E-Sig: Report: CT ABDOMEN AND PELVIS WITHOUT [...] read-back verification. READING PHYSICIAN: Rashida Hawk MD -[phone] 06/07/2024 6:44 PST [facility] National Teleradiology Program [phone] (For Medical Practitioner Use Only) Attention Patients / Veterans: If you have questions or concerns about these test results, please contact your ordering provider or primary care team. Primary Diagnostic Code: CRITICAL ABNORMALITY Primary Interpreting Staff: RADIOLOGY,OUTSIDE SERVICE, Staff Physician / RADIOLOGY,OUTSIDE SERVICE [facility] Cloud TakeoffLINCOLN COUNTY MEDICAL CENTERVoovio aka 3Ditize [facility] Pathology Reports: +/- 30 days of [...] 02:23 PM LR MICROBIOLOGY REPORT: Reporting Lab: [facility] [CLIA# [id number]] [address] [place] [phone] Accession [UID]: [id number] [[id number]] Received: Jun 05, 2024@14:23 Collection sample: URINE CLEAN CATCH Collection date: Jun 05, 2024 14:23 Site/Specimen: URINE Provider: LORETTA HANSNO Test(s) ordered: URINE CULTURE(MWROX).......... completed: Jun 08, 2024 09:02 * BACTERIOLOGY FINAL REPORT => Jun 08, 2024 09:02 TECH CODE: [id number] Bacteriology Remark(s): NO GROWTH IN 24 HOURS, FINAL REPORT TO FOLLOW. FINAL AEROBIC REPORT: NO GROWTH =--=--=--=--=--=--=--=--=--= --=--=--=--=--=--=--=--=--=- -=--=--=--=--=--=--=-- Performing Laboratory: Bacteriology Report Performed By: [facility] [CLIA# [id number]] [address] [place] [address] CYRUS ESPINOZA [facility] Jun 02, 2024 11:29 AM LR SURGICAL PATHOLOGY REPORT: LOCAL TITLE: LR SURGICAL PATHOLOGY REPORT STANDARD TITLE: PATHOLOGY DIAGNOSTIC STUDY REPORT DATE OF NOTE: JUN 02, 2024@11:29:44 ENTRY DATE: JUN 02, 2024@11:29:44 AUTHOR: MAGDALENA STOCKTON MD EXP COSIGNER: URGENCY: STATUS: COMPLETED $APHDR Reporting Lab: [facility] [CLIA# [id number]] [address] [place] [address] - - - - - - - [...] - - - PATHOLOGY REPORT Accession No. HANNAHTH [id number] - - - - - [...] - - - BRIEF CLINICAL HISTORY: [facility]I Clinic[facility] Hx: 48 year old man with [...] - - - - - PREOPERATIVE DIAGNOSIS: HEIDI [place] nEW, EXOPHYTIC, BOTHERSOME SKIN LESION MIDLINE LOWER [...] - - Gross description: [facility] 39 [id number];;1;Melinda REYNA This is a [facility] case number [facility] [id number]. Received in formalin labeled with [...] lower back: Hemangioma, completely excised. CPT code 01615 /roberto/ MAGDALENA STOCKTON MD Board Certified Dermatopathologist Signed Jun 02, 2024@11:29 Performing Laboratory: Surgical Pathology Report Performed By: [facility] [CLIA# [id number]] [address] [place] [phone] $FTR - - - - - - [...] - ELVIN REYNA JR STANDARD FORM 515 ID:[id number] SEX:M :1975 AGE: 48 LOC:CWM/NO/GS PCP: Loretta Hanson NP /roberto/ MAGDALENA STOCKTON MD Board Certified Dermatopathologist Signed: 06/02/2024 11:29 MAGDALENA STOCKTON MD [facility] Encounter Notes: All associated encounter notes This section contains the clinical notes associated to the Encounter. Date/Time Encounter Note(s) Provider Source Jun 06, 2024 10:25 AM RN PROGRESS NOTE: LOCAL TITLE: CCC: CLINICAL TRIAGE STANDARD TITLE: RN PROGRESS NOTE DATE OF NOTE: JUN 06, 2024@10:25 ENTRY DATE: JUN 06, 2024@10:25:37 AUTHOR: LORETTA MEYERS EXP COSIGNER: URGENCY: STATUS: COMPLETED VET is with chelle SINGLETARY at the present time requesting CT SCAN results from 06/05/24 made aware no results posted in chart as of yet 06/06/24 transferred call to [facility] to speak to ER MD attempting to trasnfer call edned call /es/ LORETTA YO 2 CCC RN Signed: 06/06/2024 10:30 Receipt Acknowledged By: 06/08/2024 08:24 /es/ Jacey ESTRADA RN CNL Primary Care RN LORETTA MEYERS CNTRL POTRSamantha HAND [facility]
--- OUTSIDE RECORDS SUMMARY | 2024-07-17 16:45 | XMS_ITS | Encounter Summary ---
Author Name [place] Address [address] [place] [address] Care Team Providers Care Rides Supervisor Name Role Phone LORETTA HANSON Primary Care [...] [place] [facility] Aug 05, 2021 01 [id number] ELVIN WALSH PATIENT Selected Encounter This section includes the information on record at [place] for the Encounter. Date/Time Encounter Type Encounter Description Reason Provider Source Jun 05, 2024 02:00 PM OFFICE O/P EST LOW 20 MIN PRIMARY CARE/MEDICINE ICD-10-CM R10.30 Lower abdominal pain, unspecified LEROY HANSON AM Encounter Template Text not used by [place] Assessments - Encounter Diagnoses This section includes the primary and secondary diagnoses documented for the Encounter. Date/Time Primary/Secondary Diagnosis Diagnosis Name Provider Source Jun 05, 2024 02:17 PM PRIMARY Lower abdominal pain, unspecified LEROY HANSON [facility] Plan of Treatment: Future Appointments (+ 6 months) and Future Tests (+/- 45 days) The Plan of Treatment section includes future care activities for the patient from all [place] [facility]. This section includes future appointments and future orders which are active, pending or scheduled. Future Appointments This section includes appointments that were scheduled to occur 6 months from the date of the Encounter, up to a maximum of 20 appointments. The data comes from all [facility]. Appointment Date/Time Appointment Type Appointme nt Facility Name Jun 17, 2024 08:00 AM [facility] Jun 18, 2024 08:30 AM AMBULATORY MEDICINE [facility] N[facility] W[facility] Jun 18, 2024 11:00 AM [facility] Jun 26, 2024 09:00 AM AMBULATORY [facility]IC[facility] Jul 13, 2024 09:00 AM AMBULATORY [facility] Jul 22, 2024 08:30 AM AMBULATORY MEDICINE [facility] NTRL TRN [facility] Oct 15, 2024 10:00 AM [facility] Active, Pending, and Scheduled Orders This section includes a listing of several types of active, pending, and scheduled orders, including clinic medications orders, diagnostic test orders, procedure orders and consult orders; where the start date of the order is 45 days before the date of the Encounter or 45 days after the date of theEncounter. The data comes from all [facility]. Test Date/Time Test Type Test Details Facility Name Apr 24, 2024 12:00 AM Laboratory - Chemistry Order OCCULT BLOOD FIT X1 SCREEN(IN-HOUSE) STOOL FECES SP [facility] [place] [facility] Jun 03, 2024 12:30 PM Consult Order DERMATOLOGY/NHM (OUTPT) Cons Psychiatric Aide's Choice [facility] Jun 18, 2024 12:00 AM Laboratory - Chemistry Order DRUGS OF ABUSE URINE (DRUG) [facility] Jun 30, 2024 01:22 PM Consult Order [facility] PSYCHOTHERAPY Cons Psychiatric Aide's Choice [facility] Lab Results: +/- 30 days of [...] Range Comment Jun 05, 2024 02:23 PM [facility] MICROSCOPIC AUTOMATED, URINE Specimen Type: URINE Comment: If Glucose = >500 and Ketones are positive, please alert the Physician. Ordering Provider: MAR HANSON Report Released Date/Time: Jun 05, 2024 02:02 PM Reporting Lab: [address] [address] Performing Lab: [address] [address] UA WBC 0-5 /[HPF] 0-5 UA MUCUS FEW /[LPF] Trace UA RBC 11-20 /[HPF] H 0-3 Jun 05, 2024 02:[address] [facility] CT/GC DNA PANEL(IN-HOUSE) Specimen Type: URINE Comment: Test performed on the [employer] Genexpert. A negative test results does not exclude the possibility of infection because results may be affected by improper specimen collection, concurrent antibiotic therapy, or the number of organisms in the specimen which may be below the sensitivity of the test. Ordering Provider: MAR HANSON Report Released Date/Time: Jun 05, 2024 02:02 PM Reporting Lab: [address] [address] Performing Lab: [address] [address] GC PCR NOT DETECTED Not Detected CT PCR NOT DETECTED Not Detected Jun 05, 2024 02:23 PM [facility] URINALYSIS CLEAN CATCH Specimen Type: URINE Comment: If Glucose = >500 and Ketones are positive, please alert the Physician. Ordering Provider: MAR HANSON Report Released Date/Time: Jun 05, 2024 02:02 PM Reporting Lab: [facility] [address] [facility] [address] Performing Lab: [facility] [address] [facility] [address] UA COLOR Light-Yellow Yellow UA APPEARANCE Clear [...] 131/82 20 96 2 66 244 39 [facility] Social History: Smoking Status (Most current) [...] 26, 2023 10:00 AM [place]-TOBACCO FORMER USER [facility] Tobacco Use History This section includes a history of the smoking, or tobacco-related health factors, that were collected on or before the date of the Encounter. The data comes from the [place] facility where the Encounter took place. Date/Time Smoking Status/Tobacco Use Comment F acility Aug 26, 2023 10:00 AM [place]-TOBACCO QUIT 15 YRS OR MORE [facility] Apr 11, 2022 11:00 AM [place]-TOBACCO FORMER USER [facility] Apr 11, 2022 11:00 AM [place]-TOBACCO QUIT 15 YRS OR MORE [facility] Advance Directives: All historical and current [...] 10, 2005 ADVANCE DIRECTIVE DISCUSSION FRANCE RODRIGEZ [facility] Aug 14, 2004 ADVANCE DIRECTIVE DISCUSSION [...] the Encounter. The data comes from all [place] treatment facilities. Date/Time Radiology Report Provider Source Jun 05, 2024 02:[address] ABDOMEN AND PELVIS WITHOUT CONT.: ELVIN REYNA [id number] -1975 Ex Date: JUN 05, 2024@14:27 Req Phys: LORETTA HANSON Loc: CWM/NO/PACT 7 (Req'g Loc) Img Loc: NHM/CT Service: [facility] [place] [address] (Case 335 COMPLETE) CT ABDOMEN AND PELVIS WITHOUT CON(CT Detailed) CPT:63326 Reason for Study: lower abdominal pain Clinical History: h/o kidney stone, having worsening pain Report Status: Verified Date Reported: JUN 07, 2024 Date Verified: JUN 07, 2024 Drill Setup Operator E-Sig: Report: CT ABDOMEN AND PELVIS WITHOUT CONT. HISTORY: lower abdominal pain COMPARISON: 11/28/2091. TECHNIQUE: CT of the abdomen and pelvis with multiplanar reformats was performed at the local [place] facility. 497 images were received by the [place] National Teleradiology Program (NTP) for interpretation. RADIATION [...] read-back verification. READING PHYSICIAN: Rashida Hawk MD -[phone] 06/07/2024 6:44 PST [facility] National Teleradiology Program [phone] (For Medical Practitioner Use Only) Attention Patients / Veterans: If you have questions or concerns about these test results, please contact your ordering provider or primary care team. Primary Diagnostic Code: CRITICAL ABNORMALITY Primary Interpreting Staff: RADIOLOGY,OUTSIDE SERVICE, Staff Physician / RADIOLOGY,OUTSIDE SERVICE [place] [facility] Pathology Reports: +/- 30 days of [...] the Encounter. The data comes from all [place] treatment facilities. Date/Time Pathology Report Provider Source Jun 05, 2024 02:23 PM LR MICROBIOLOGY REPORT: Reporting Lab: [facility] [CLIA# [id number]] [address] [place] [address] Accession [UID]: [id number] [[id number]] Received: Jun 05, 2024@14:23 Collection sample: URINE CLEAN CATCH Collection date: Jun 05, 2024 14:23 Site/Specimen: URINE Provider: LORETTA HANSON Test(s) ordered: URINE CULTURE(MWROX).......... completed: Jun 08, 2024 09:02 * BACTERIOLOGY FINAL REPORT => Jun 08, 2024 09:02 TECH CODE: [id number] Bacteriology Remark(s): NO GROWTH IN 24 HOURS, FINAL REPORT TO FOLLOW. FINAL AEROBIC REPORT: NO GROWTH =--=--=--=--=--=--=--=--=--= --=--=--=--=--=--=--=--=--=- -=--=--=--=--=--=--=-- Performing Laboratory: Bacteriology Report Performed By: [facility] [CLIA# [id number]] [address] [place] [id number] CYRUS ESPINOZA [facility] Jun 02, 2024 11:29 AM LR SURGICAL PATHOLOGY REPORT: LOCAL TITLE: LR SURGICAL PATHOLOGY REPORT STANDARD TITLE: PATHOLOGY DIAGNOSTIC STUDY REPORT DATE OF NOTE: JUN 02, 2024@11:29:44 ENTRY DATE: JUN 02, 2024@11:29:44 AUTHOR: MAGDALENA STOCKTON MD EXP COSIGNER: URGENCY: STATUS: COMPLETED $APHDR Reporting Lab: [facility] [CLIA# [id number]] [address] [place] [address], [place] [address] - - - - - - - [...] - - - PATHOLOGY REPORT Accession No. [place] [id number] - - - - - - [...] - - - PATHOLOGY REPORT Accession No. [facility] 24 [id number] - - - - - - - - - - - - - - - - - - - - - - - - - - - - - - - - - - - - - - - - Gross description: [facility] 25 3714;;1;Melinda REYNA This is a [facility] case number [facility] [id number]. Received in formalin [...] lower back: Hemangioma, completely excised. CPT code 94379 /es/ MAGDALENA STOCKTON MD Board Certified Dermatopathologist Signed Jun 02, 2024@11:29 Performing Laboratory: Surgical Pathology Report Performed By: [facility] [CLIA# [id number]] [address] [place] [address] $FTR - - - - - - [...] - ELVIN REYNA JR STANDARD FORM 515 ID:[id number] SEX:M :1975 AGE: 48 LOC:CWM/NO/GS PCP: Loretta Hanson NP /roberto/ MAGDALENA STOCKTON MD Board Certified Dermatopathologist Signed: 06/02/2024 11:29 MAGDALENA STOCKTON MD [place] CNTR WSTR[place] [facility] Encounter Notes: All associated encounter notes This section contains the clinical notes associated to the Encounter. Date/Time Encounter Note(s) Provider Source Jun 16, 2024 02:25 PM PRIMARY CARE NURSE PRACTITIONER OUTPATIENT NOTE: LOCAL TITLE: NURSE PRACTITIONER OUTPATIENT NOTE STANDARD TITLE: PRIMARY CARE NURSE PRACTITIONER OUTPATIENT NOTE DATE OF NOTE: JUN 16, 2024@14:25 ENTRY DATE: JUN 16, 2024@14:25:08 AUTHOR: LORETTA HANSON EXP COSIGNER: URGENCY: STATUS: COMPLETED Alert to [facility], please fax to: [facility] [address] [address] [phone] CT ABDOMEN AND PELVIS WITHOUT CONT. HISTORY: lower abdominal pain COMPARISON: 11/28/2091. TECHNIQUE: CT of the abdomen and pelvis with multiplanar reformats was performed at the local [place] facility. 497 images were received by the [place] National Teleradiology Program (NTP) for interpretation. RADIATION [...] though correlation for cystitis can be made. /roberto/ Loretta Hanson DNP, SOFTWARE TEAM LEADER-BC, CNL Primary Care Nurse Practitioner Signed: 06/16/2024 14:28 Receipt Acknowledged By: 06/16/2024 14:36 /roberto/ BRUCE STOLL ADVANCED IT SECURITY SPECIALIST LORETTA HANSON [place] [facility] Jun 05, 2024 02:08 PM PRIMARY CARE NURSE PRACTITIONER OUTPATIENT NOTE: LOCAL TITLE: NURSE PRACTITIONER OUTPATIENT NOTE STANDARD TITLE: PRIMARY CARE NURSE PRACTITIONER OUTPATIENT NOTE DATE OF NOTE: JUN 05, 2024@14:08 ENTRY DATE: JUN 05, 2024@14:08:59 AUTHOR: LORETTA HANSON EXP COSIGNER: URGENCY: STATUS: COMPLETED Chief complaint: Patient is a 48 year old . HPI: Pleasant male here because of painful urination, lower mid abdominal beneath the pubic bone pain. He is following with urology, known left side kidney stone with planned though not scheduled lithotripsy. He denies any fevers. He is passing clear urine. Denies any unprotected sex outside of his monogamus relationship. Allergies: Patient has answered NKA The following [...] MOUTH ONCE DAILY FOR VITAMIN SUPPLEMENTATION 3) DM 10/GUAIFENESN 100MG/5ML (AF & SF) LIQ TAKE 5 MLS ACTIVE BY MOUTH EVERY 6 HOURS NEEDED FOR COUGH 4) OMEPRAZOLE 20MG EC CAP TAKE ONE CAPSULE BY MOUTH ONCE ACTIVE DAILY Inactive Outpatient Medications Status 1) TAMSULOSIN HCL 0.4MG CAP TAKE ONE CAPSULE BY MOUTH ONCE DAILY FOR 10 DAYS Active Non-VA Medications Status 1) Non-VA PROBIOTIC (CULTURELLE DIGESTIVE DAILY) CAP/TAB ACTIVE BY MOUTH 6 Total Medications Review of Systems: Constitutional: (-)for Fevers, chills, weakness, nights sweats On examination: 98.3 F [36.8 C] (06/05/2024 13:52)131/82 (06/05/2024 13:52)91 (06/05/2024 13:52)20 (06/05/2024 13:52)2 (06/05/2024 13:52)BMI: 39.5244 lb [110.68 kg] (06/05/2024 13:52) [place] is alert and oriented X3 Assessment/plan: Active problems - Computerized Problem List is the source for the following: Lower abd pain - will get ct, check u/a, he agrees with checking GC. Review of medial record = 5mins Time spent with Patient including shared decision making = 15 MINS Post visit documentation = 5mins Total time = 25 mins Follow up visit as scheduled Medication Reconciliation: Outpatient: Has the patient been taking medications as documented in the EMLR? YES: The patient has been taking medications as documented in the EMLR. Essential Medication List for Review used to complete this medication reconciliation. INCLUDED IN THIS LIST: Alphabetical list of active outpatient prescriptions dispensed from this [place] (local) and dispensed from another [place] or [facility] facility (remote) as well as inpatient [...] VA or non-VA provider. /roberto/ Loretta Hanson DNP, SOFTWARE TEAM LEADER-BC, CNL Primary Care Nurse Practitioner Signed: 06/05/2024 14:16 LORETTA HANSON [place] [facility] [place] [facility]
--- OUTSIDE RECORDS SUMMARY | 2024-07-17 16:45 | XMS_ITS | Encounter Summary ---
Author Name [facility] [place] [facility] [place] Organization [facility] [place] [facility] [place] Address [address], [place] [address] Care Team Providers Care Lawyer Probate Name Role Phone LORETTA HANSON Primary Care [...] Gonzalez's Name Patient's Relationship to Policy Gonzalez [facility] MEDICAID [facility] Aug 05, 2021 01 [id number] ELVIN WALSH PATIENT Selected Encounter This section includes the information on record at PR for the Encounter. Date/Time Encounter Type Encounter Description Reason Pro vider Source Jun 07, 2024 10:40 AM Outpatient Encounter GENERAL INTERNAL MEDICINE IHE Encounter Template Text not used by PR Plan of Treatment: Future Appointments (+ 6 [...] 20 appointments. The data comes from all PR treatment facilities. Appointment Date/Time Appointment Type Appointme nt Facility Name Jun 17, 2024 08:00 AM AMBULATORY - PSYCHIATRY [place] [facility] [place] [facility] Jun 18, 2024 08:30 AM AMBULATORY - MEDICINE PR C [facility] [place] [facility] Jun 18, 2024 11:00 AM AMBULATORY - PSYCHIATRY PR [facility] [place] [facility] Jun 26, 2024 09:00 AM AMBULATORY - MEDICINE PR C [facility] [place] [facility] Jul 13, 2024 09:00 AM AMBULATORY - MEDICINE PR C [facility] [place] [facility] Jul 22, 2024 08:30 AM AMBULATORY - MEDICINE PR C [facility] [place] [facility] Oct 15, 2024 10:00 AM AMBULATORY MEDICINE [facility] [place] [facility] Active, Pending, and Scheduled Orders This section includes a listing of several types of active, pending, and scheduled orders, including clinic medications orders, diagnostic test orders, procedure orders and consult orders; where the start date of the order is 45 days before the date of the Encounter or 45 days after the date of theEncounter. The data comes from all [facility]. Test Date/Time Test Type Test Details Facility Name Apr 24, 2024 12:00 AM Laboratory - Chemistry Order OCCULT BLOOD FIT X1 SCREEN(IN-HOUSE) STOOL FECES SP [facility] [place] [facility] Jun 03, 2024 12:30 PM Consult Order DERMATOLOGY/NHM (OUTPT) Cons Sod Stripper's Choice [facility] [place] [facility] Jun 18, 2024 12:00 AM Laboratory - Chemistry Order DRUGS OF ABUSE URINE (DRUG) SP [facility] [place] [facility] Jun 30, 2024 01:22 PM Consult Order COMMUNITY CARE- PSYCHOTHERAPY Cons Sod Stripper's Choice [facility] Lab Results: +/- 30 days [...] Range Comment Jun 05, 2024 02:[address] [facility] [address]/GC DNA PANEL(IN-HOUSE) Specimen Type: URINE Comment: Test performed on the [employer] Genexpert. A negative test results does not exclude the possibility of infection because results may be affected by improper specimen collection, concurrent antibiotic therapy, or the number of organisms in the specimen which may be below the sensitivity of the test. Ordering Provider: MAR HANSON Report Released Date/Time: Jun 05, 2024 02:02 PM Reporting Lab: [address] [address] Performing Lab: [address] [address] GC PCR NOT DETECTED Not Detected CT PCR NOT DETECTED Not Detected Jun 05, 2024 02:23 PM [facility] MICROSCOPIC AUTOMATED, URINE Specimen Type: URINE Comment: If Glucose = >500 and Ketones are positive, please alert the Physician. Ordering Provider: MAR HANSON Report Released Date/Time: Jun 05, 2024 02:02 PM Reporting Lab: [address] [address] Performing Lab: [address] [address] UA WBC 0-5 /[HPF] 0-5 UA MUCUS FEW /[LPF] Trace UA RBC 11-20 /[HPF] H 0-3 Jun 05, 2024 02:23 PM [facility] URINALYSIS CLEAN CATCH Specimen Type: URINE Comment: If Glucose = >500 and Ketones are positive, please alert the Physician. Ordering Provider: MAR HANSON Report Released Date/Time: Jun 05, 2024 02:02 PM Reporting Lab: [address] [address] Performing Lab: [address] [address] UA COLOR Light-Yellow Yellow UA APPEARANCE Clear [...] and tobacco- related health factors from the PR facility where the Encounter took place. Current Smoking Status This section includes the most current smoking, or tobacco-related health factor, from the PR facility where the Encounter took place. Date/Time Current Smoking Status Comment Facil ity Aug 26, 2023 10:00 AM PR-TOBACCO FORMER USER [facility] Tobacco Use History This section includes a history of the smoking, or tobacco-related health factors, that were collected on or before the date of the Encounter. The data comes from the PR facility where the Encounter took place. Date/Time Smoking Status/Tobacco Use Comment F acility Aug 26, 2023 10:00 AM PR-TOBACCO QUIT 15 YRS OR MORE [facility] Apr 11, 2022 11:00 AM PR-TOBACCO FORMER USER [facility] Apr 11, 2022 11:00 AM PR-TOBACCO QUIT 15 YRS OR MORE [facility] Advance Directives: All historical and current Section Date Range: From patient's date of to the date document was created. This section includes ALL of a patient's completed or amended PR Advance and Rescinded Directives. The entries below indicate that a directive exists for the patient, but an actual copy is not included with this document. The data comes from all PR facilities. Date Advance Directives Provider Source May 16, 2011 ADVANCE DIRECTIVE DISCUSSION TON SARAVIA Sep 27, 2005 ADVANCE DIRECTIVE SHARLENE SIDHU [facility] Sep 10, 2005 ADVANCE DIRECTIVE DISCUSSION FRANCE RODRIGEZ [facility] Aug 14, 2004 ADVANCE DIRECTIVE [...] the Encounter. The data comes from all PR treatment facilities. Date/Time Radiology Report Provider Source Jun 05, 2024 02:[address] ABDOMEN AND PELVIS WITHOUT CONT.: ELVIN REYNA [id number] -1975 M Exm Date: JUN 05, 2024@14:27 Req Phys: LORETTA HANSON Loc: CWM/NO/PACT 7 (Req'g Loc) Img Loc: [place]/CT Service: [facility] [place] [address] (Case [id number] COMPLETE) CT ABDOMEN AND PELVIS WITHOUT CON(CT Detailed) CPT:92162 Reason for Study: lower abdominal pain Clinical History: h/o kidney stone, having worsening pain Report Status: Verified Date Reported: JUN 07, 2024 Date Verified: JUN 07, 2024 [employer] Finishing Hand E-Sig: Report: CT ABDOMEN AND PELVIS WITHOUT CONT. HISTORY: lower abdominal pain COMPARISON: 11/28/2091. TECHNIQUE: CT of the abdomen and pelvis with multiplanar reformats was performed at the local PR facility. 497 images were received by the PR National Teleradiology Program (NTP) for interpretation. RADIATION [...] read-back verification. READING PHYSICIAN: Rashida Hawk MD -[phone] 06/07/2024 6:44 PST [facility] National Teleradiology Program [phone] (For Medical Practitioner Use Only) Attention Patients / Veterans: If you have questions or concerns about these test results, please contact your ordering provider or primary care team. Primary Diagnostic Code: CRITICAL ABNORMALITY Primary Interpreting Staff: RADIOLOGY,OUTSIDE SERVICE, Staff Physician / RADIOLOGY,OUTSIDE SERVICE [facility] Pathology Reports: +/- 30 days [...] the Encounter. The data comes from all PR treatment facilities. Date/Time Pathology Report Provider Source Jun 05, 2024 02:23 PM LR MICROBIOLOGY REPORT: Reporting Lab: [facility] [CLIA# [id number]] [address] [place] [phone] Accession [UID]: [id number] [[id number]] Received: Jun 05, 2024@14:23 Collection sample: URINE CLEAN CATCH Collection date: Jun 05, 2024 14:23 Site/Specimen: URINE Provider: LORETTA HANSON Test(s) ordered: URINE CULTURE(MWROX).......... completed: Jun 08, 2024 09:02 * BACTERIOLOGY FINAL REPORT => Jun 08, 2024 09:02 TECH CODE: [id number] Bacteriology Remark(s): NO GROWTH IN 24 HOURS, FINAL REPORT TO FOLLOW. FINAL AEROBIC REPORT: NO GROWTH =--=--=--=--=--=--=--=--=--= --=--=--=--=--=--=--=--=--=- -=--=--=--=--=--=--=-- Performing Laboratory: Bacteriology Report Performed By: [facility] [CLIA# [id number]] [address] [place] [phone] CYRUS ESPINOZA [facility] Jun 02, 2024 11:29 AM LR SURGICAL PATHOLOGY REPORT: LOCAL TITLE: LR SURGICAL PATHOLOGY REPORT STANDARD TITLE: PATHOLOGY DIAGNOSTIC STUDY REPORT DATE OF NOTE: JUN 02, 2024@11:29:44 ENTRY DATE: JUN 02, 2024@11:29:44 AUTHOR: MAGDALENA STOCKTON MD EXP COSIGNER: URGENCY: STATUS: COMPLETED $APHDR Reporting Lab: [facility] [CLIA# [id number]] [address] [place] [phone] - - - - - - - [...] - - - BRIEF CLINICAL HISTORY: HEIDI 53 Clinicl Hx: 48 year old man [...] - - - PREOPERATIVE DIAGNOSIS: HEIDI [place] 53 nEW, EXOPHYTIC, BOTHERSOME SKIN LESION MIDLINE [...] - - - - - Gross description: [facility] 50 [id number];;1;Melinda REYNA This is a [facility] case number [facility] [id number]. Received in formalin labeled [...] lower back: Hemangioma, completely excised. CPT code 04258 /roberto/ MAGDALENA STOCKTON MD Board Certified Dermatopathologist Signed Jun 02, 2024@11:29 Performing Laboratory: Surgical Pathology Report Performed By: [facility] [CLIA# [id number]] [address] [place] [phone] $FTR - - - - - - [...] - ELVIN REYNA JR STANDARD FORM 515 ID:[id number] SEX:M :1975 AGE: 48 LOC:CWM/NO/GS PCP: Loretta Hanson NP /roberto/ MAGDALENA STOCKTON MD Board Certified Dermatopathologist Signed: 06/02/2024 11:29 MAGDALENA STOCKTON MD [facility] Encounter Notes: All associated encounter notes This section contains the clinical notes associated to the Encounter. Date/Time Encounter Note(s) Provider Source Jun 07, 2024 10:40 AM PRIMARY CARE TELEP [place] ENCOUNTER NOTE: LOCAL TITLE: TELEPHONE NOTE/PRIMARY CARE STANDARD TITLE: PRIMARY CARE TELEPHONE ENCOUNTER NOTE DATE OF NOTE: JUN 07, 2024@10:40 ENTRY DATE: JUN 07, 2024@10:40:38 AUTHOR: RODO LAZAR COSIGNER: URGENCY: STATUS: COMPLETED I received a phone call from [place] [facility], Dr. Carolina Robbins, to inform the PCP that the abdomen/pelvic CT that was performed on 06/05/24 demonstrated a passed kidney stone on the right with associated stranding and slight hydroureteronephrosis. Patient's record indicates that he is already being followed by urology. I called the patient and I left him a message regarding the CT results. I informed him that I will notify his PCP, and he will likely get a call from his PCP tomorrow 06/08/24 regarding the next steps. /roberto/ RODO LAZAR M.D. PHYSICIAN Signed: 06/07/2024 10:43 Receipt Acknowledged By: 06/09/2024 07:35 /roberto/ Loretta Hanson DNP, CORPORATE SECURITY OFFICER-BC, CNL Primary Care Nurse Practitioner RODO LAZAR [place] [facility]
--- OUTSIDE RECORDS SUMMARY | 2024-07-17 16:46 | XMS_ITS | Encounter Summary ---
Author Name [facility] [place] Organization [place] Address [address], [place] [address] Care Team Providers Care Edger Automatic Name Role Phone LORETTA HANSON Primary Care [...] Policy Gonzalez [facility] MEDICAID [facility] Aug 05, 2021 01 [id number] ELVIN WALSH PATIENT Selected Encounter This section includes the information on record at CT for the Encounter. Date/Time Encounter Type Encounter Description Reason Pro vider Source Jun 11, 2024 03:57 PM Outpatient Encounter COMMUNITY CARE CONSULT IHE Encounter [...] 17, 2024 08:00 AM AMBULATORY - PSYCHIATRY CT [facility] [facility] Jun 18, 2024 08:30 AM AMBULATORY - MEDICINE CT C [facility] [place] [facility] Jun 18, 2024 11:00 AM AMBULATORY - PSYCHIATRY CT [facility] [place] [facility] Jun 26, 2024 09:00 AM AMBULATORY - MEDICINE CT C [facility] [place] [facility] Jul 13, 2024 09:00 AM AMBULATORY - MEDICINE CT C [facility] [place] [facility] Jul 22, 2024 08:30 AM AMBULATORY - MEDICINE CT C [facility] [place] [facility] Oct 15, 2024 10:00 AM AMBULATORY MEDICINE [facility] Active, Pending, and Scheduled Orders [...] Date/Time Test Type Test Details Facility Name Jun 03, 2024 12:30 PM Consult Order DERMATOLOGY/NHM (OUTPT) Cons Phys Asst's [facility] Jun 18, 2024 12:00 AM Laboratory - Chemistry Order DRUGS OF ABUSE URINE (DRUG) SP [facility] Jun 30, 2024 01:22 PM Consult Order COMMUNITY CARE- PSYCHOTHERAPY Cons Phys Asst's Choice [facility] Lab Results: +/- 30 days [...] Range Comment Jun 05, 2024 02:23 PM [facility] CT/GC DNA PANEL(IN-HOUSE) Specimen Type: URINE Comment: Test performed on the [employer] Genexpert. A negative test results does not exclude the possibility of infection because results may be affected by improper specimen collection, concurrent antibiotic therapy, or the number of organisms in the specimen which may be below the sensitivity of the test. Ordering Provider: MAR HANSON Report Released Date/Time: Jun 05, 2024 02:02 PM Reporting Lab: [address] [address] Performing Lab: [address] [address] GC PCR NOT DETECTED Not Detected CT PCR NOT DETECTED Not Detected Jun 05, 2024 02:23 PM [facility] MICROSCOPIC AUTOMATED, URINE Specimen Type: URINE Comment: If Glucose = >500 and Ketones are positive, please alert the Physician. Ordering Provider: MAR HANSON Report Released Date/Time: Jun 05, 2024 02:02 PM Reporting Lab: [address] [address] Performing Lab: [address] [address] UA WBC 0-5 /[HPF] 0-5 UA MUCUS FEW /[LPF] Trace UA RBC 11-20 /[HPF] H 0-3 Jun 05, 2024 02:23 PM [facility] URINALYSIS CLEAN CATCH Specimen Type: URINE Comment: If Glucose = >500 and Ketones are positive, please alert the Physician. Ordering Provider: MAR HANSON Report Released Date/Time: Jun 05, 2024 02:02 PM Reporting Lab: [address] [address] Performing Lab: [address] [address] UA COLOR Light-Yellow Yellow UA APPEARANCE Clear [...] 26, 2023 10:[address]-TOBACCO FORMER USER [facility] Tobacco Use History This section includes a history of the smoking, or tobacco-related health factors, that were collected on or before the date of the Encounter. The data comes from the [place] facility where the Encounter took place. Date/Time Smoking Status/Tobacco Use Comment F acility Aug 26, 2023 10:[address]-TOBACCO QUIT 15 YRS OR MORE [facility] Apr 11, 2022 11:[address]-TOBACCO FOR[facility] USER [facility] Apr 11, 2022 11:[address]-TOBACCO QUIT 15 YRS OR MORE [facility] Advance Directives: All historical and current [...] 10, 2005 ADVANCE DIRECTIVE DISCUSSION FRANCE RODRIGEZ [facility] Aug 14, 2004 ADVANCE DIRECTIVE [...] ABDOMEN AND PELVIS WITHOUT CONT.: ELVIN REYNA [id number] -1975 M Exm Date: JUN 05, 2024@14:27 Req Phys: LORETTA HANSON Loc: CWM/NO/PACT 7 (Req'g Loc) Img Loc: NHM/CT Service: Unknown [facility] [place] [address] (Case [id number] COMPLETE) CT ABDOMEN AND PELVIS WITHOUT CON(CT Detailed) CPT:62645 Reason for Study: lower abdominal pain Clinical History: h/o kidney stone, having worsening pain Report Status: Verified Date Reported: JUN 07, 2024 Date Verified: JUN 07, 2024 Cob Sawyer E-Sig: Report: CT ABDOMEN AND PELVIS WITHOUT [...] read-back verification. READING PHYSICIAN: Rashida Hawk MD -[phone] 06/07/2024 6:44 PST [facility] National Teleradiology Program [phone] (For Medical Practitioner Use Only) Attention Patients / Veterans: If you have questions or concerns about these test results, please contact your ordering provider or primary care team. Primary Diagnostic Code: CRITICAL ABNORMALITY Primary Interpreting Staff: RADIOLOGY,OUTSIDE SERVICE, Staff Physician / RADIOLOGY,OUTSIDE SERVICE [facility] Action EngineSIERRA VISTA HOSPITALHandUp PBC [facility] Pathology Reports: +/- 30 days [...] 02:23 PM LR MICROBIOLOGY REPORT: Reporting Lab: [facility] [CLIA# [id number]] [address] [place] [phone] Accession [UID]: [id number] [[id number]] Received: Jun 05, 2024@14:23 Collection sample: URINE CLEAN CATCH Collection date: Jun 05, 2024 14:23 Site/Specimen: URINE Provider: LORETTA HANSON Test(s) ordered: URINE CULTURE(MWROX).......... completed: Jun 08, 2024 09:02 * BACTERIOLOGY FINAL REPORT => Jun 08, 2024 09:02 TECH CODE: [id number] Bacteriology Remark(s): NO GROWTH IN 24 HOURS, FINAL REPORT TO FOLLOW. FINAL AEROBIC REPORT: NO GROWTH =--=--=--=--=--=--=--=--=--= --=--=--=--=--=--=--=--=--=- -=--=--=--=--=--=--=-- Performing Laboratory: Bacteriology Report Performed By: [facility] [CLIA# [id number]] [address] [place] [address] CYRUS ESPINOZA [facility] Jun 02, 2024 11:29 AM LR SURGICAL PATHOLOGY REPORT: LOCAL TITLE: LR SURGICAL PATHOLOGY REPORT STANDARD TITLE: PATHOLOGY DIAGNOSTIC STUDY REPORT DATE OF NOTE: JUN 02, 2024@11:29:44 ENTRY DATE: JUN 02, 2024@11:29:44 AUTHOR: MAGDALENA STOCKTON MD EXP COSIGNER: URGENCY: STATUS: COMPLETED $APHDR Reporting Lab: [facility] [CLIA# [id number]] [address] [place] [phone] - - - - - - - [...] - - - - PREOPERATIVE DIAGNOSIS: HEIDI nEW, EXOPHYTIC, BOTHERSOME SKIN LESION MIDLINE LOWER [...] - - - PATHOLOGY REPORT Accession No. [facility] [id number] - - - - - - - - - - - - - - - - - - - - - - - - - - - - - - - - - - - - - - - - Gross description: [facility] 37 [id number];;1;Melinda REYNA This is a [facility] case number [facility] [id number]. Received in formalin labeled [...] lower back: Hemangioma, completely excised. CPT code 49047 /roberto/ MAGDALENA STOCKTON MD Board Certified Dermatopathologist Signed Jun 02, 2024@11:29 Performing Laboratory: Surgical Pathology Report Performed By: [facility] [CLIA# [id number]] [address] [place] [address] $FTR - - - - - - [...] - ELVIN REYNA JR STANDARD FORM 515 ID:[id number] SEX:M :1975 AGE: 48 LOC:CWM/NO/GS PCP: Loretta Hanson NP /roberto/ MAGDALENA STOCKTON MD Board Certified Dermatopathologist Signed: 06/02/2024 11:29 MAGDALENA STOCKTON MD [facility] Encounter Notes: All associated encounter notes This section contains the clinical notes associated to the Encounter. Date/Time Encounter Note(s) Provider Source Jun 11, 2024 03:57 PM NONVA NOTE: LOCAL TITLE: [facility] SELF PRESENTING CARE COORD PLAN STANDARD TITLE: NONVA NOTE DATE OF NOTE: JUN 11, 2024@15:57 ENTRY DATE: JUN 11, 2024@15:57:42 AUTHOR: MARY DALEY EXP COSIGNER: URGENCY: STATUS: COMPLETED Emergency Notification Intake Date Presenting to the Facility: Apr Method of Contact: Notified from ECR worklist Notification ID: [id number] [facility] Referral #: [id number] [facility] Name: Hospital: Albin Chand Address: City: [place] State: [place] Zip Code: Phone : [facility] Facility Point of Contact: Name: Antonio Phone: Chief complaint: N20.0 Primary Diagnosis: Disposition Discharged Date of discharge: Apr Discharge to Comment: ER Only /es/ MARY CENTENO Signed: 06/11/2024 15:59 Receipt Acknowledged By: * AWAITING SIGNATURE * DOUGLAS BENTLEY * AWAITING SIGNATURE * DILSHAD SULTANA * AWAITING SIGNATURE * KATERINE BLANTON * AWAITING SIGNATURE * INGRID EDMONDS DAWN MARIE JACKSON
--- OUTSIDE RECORDS SUMMARY | 2024-07-17 16:46 | XMS_ITS | Encounter Summary ---
Author Name [facility] [place] [facility] [place] Address [address] [place] [address] Care Team Providers Care Car Supervisor Name Role Phone LORETTA HANSON Primary [...] Gonzalez's Name Patient's Relationship to Policy Gonzalez [facility] MEDICAID [facility] Aug 05, 2021 01 [id number] ELVIN WALSH PATIENT Selected Encounter This section includes the information on record at [place] for the Encounter. Date/Time Encounter Type Encounter Description Reason Provider Source Jun 18, 2024 08:30 AM OFFICE O/P EST LOW 20 MIN PODIATRY ICD-10-CM L60.3 Nail dystrophy SALAS KONG Zahra Encounter Template Text not used by [place] Assessments - Encounter Diagnoses This section includes the primary and secondary diagnoses documented for the Encounter. Date/Time Primary/Secondary Diagnosis Diagnosis Name Provider Source Jun 18, 2024 04:41 PM PRIMARY Nail dystrophy SALAS KONG [facility] Plan of Treatment: Future Appointments (+ 6 months) and Future Tests (+/- 45 days) The Plan of Treatment section includes future care activities for the patient from all [place] [facility]. This section includes future appointments and future orders which are active, pending or scheduled. Future Appointments This section includes appointments that were scheduled to occur 6 months from the date of the Encounter, up to a maximum of 20 appointments. The data comes from all [place] treatment facilities. Appointment Date/Time Appointment Type Appointme nt Facility Name Jun 26, 2024 09:00 AM AMBULATORY - MEDICINE [facility] Jul 13, 2024 09:00 AM [facility] Jul 22, 2024 08:30 AM AMBULATORY MEDICINE [facility] Oct 15, 2024 10:00 AM AMBULATORY MEDICINE [facility] Active, Pending, and Scheduled Orders This section includes a listing of several types of active, pending, and scheduled orders, including clinic medications orders, diagnostic test orders, procedure orders and consult orders; where the start date of the order is 45 days before the date of the Encounter or 45 days after the date of theEncounter. The data comes from all [facility]. Test Date/Time Test Type Test Details Facility Name Jun 03, 2024 12:30 PM Consult Order DERMATOLOGY/[facility] (OUTPT) Cons Maintenance Construction Helper's Choice [facility] Jun 18, 2024 12:00 AM Laboratory - Chemistry Order DRUGS OF ABUSE URINE (DRUG) SP [facility] Jun 30, 2024 01:22 PM Consult Order COMMUNITY CARE- PSYCHOTHERAPY Cons Maintenance Construction Hel[employer] Choice [facility] Lab Results: +/- 30 days [...] Range Comment Jun 05, 2024 02:23 [address] [facility] CT/GC DNA PANEL(IN-HOUSE) Specimen Type: URINE Comment: Test performed on the [employer] Gen[employer]. A negative test results does not exclude the possibility of infection because results may be affected by improper specimen collection, concurrent antibiotic therapy, or the number of organisms in the specimen which may be below the sensitivity of the test. Ordering Provider: MAR HANSON Report Released Date/Time: Jun 05, 2024 02:02 PM Reporting Lab: [address] [id number] Performing Lab: [address] [address] GC PCR NOT DETECTED Not Detected CT PCR NOT DETECTED Not Detected Jun 05, 2024 02:23 PM [facility] MICROSCOPIC AUTOMATED, URINE Specimen Type: URINE Comment: If Glucose = >500 and Ketones are positive, please alert the Physician. Ordering Provider: MAR HANSON Report Released Date/Time: Jun 05, 2024 02:02 PM Reporting Lab: [address] [address] Performing Lab: [address] [address] UA WBC 0-5 /[HPF] 0-5 UA MUCUS FEW /[LPF] Trace UA RBC 11-20 /[HPF] H 0-3 Jun 05, 2024 02:23 PM [facility] URINALYSIS CLEAN CATCH Specimen Type: URINE Comment: If Glucose = >500 and Ketones are positive, please alert the Physician. Ordering Provider: MAR HANOSN Report Released Date/Time: Jun 05, 2024 02:02 PM Reporting Lab: [address] [address] Performing Lab: [address] [address] UA COLOR Light-Yellow Yellow UA APPEARANCE Clear [...] Facil ity Aug 26, 2023 10:00 AM [place] FORMER USER [facility] Tobacco Use History This section includes a history of the smoking, or tobacco-related health factors, that were collected on or before the date of the Encounter. The data comes from the [place] facility where the Encounter took place. Date/Time Smoking Status/Tobacco Use Comment F acility Aug 26, 2023 10:00 AM [place] 15 YRS OR MORE [facility] Apr 11, 2022 11:00 AM [place] FOR[facility] US[place] [facility] Apr 11, 2022 11:00 AM [place] QUIT 15 YRS OR MORE [facility] [...] 2005 ADVANCE DIRECTIVE SHARLENE SIDHU [facility] Sep 10, 2005 ADVANCE DIRECTIVE DISCUSSION FRANCE RODRIGEZ [facility] Aug 14, 2004 ADVANCE DIRECTIVE [...] ABDOMEN AND PELVIS WITHOUT CONT.: ELVIN REYNA [id number] -1975 M Exm Date: JUN 05, 2024@14:27 Req Phys: LORETTA HANSON Loc: CWM/NO/PACT 7 (Req'g Loc) Img Loc: [facility]/CT Service: Unknown [place] [facility] [place] [address] (Case [id number] COMPLETE) CT ABDOMEN AND PELVIS WITHOUT CON(CT Detailed) CPT:09046 Reason for Study: lower abdominal pain Clinical History: h/o kidney stone, having worsening pain Report Status: Verified Date Reported: JUN 07, 2024 Date Verified: JUN 07, 2024 General Office Dispatcher E-Sig: Report: CT ABDOMEN AND PELVIS WITHOUT [...] read-back verification. READING PHYSICIAN: Rashida Hawk MD -[phone] 06/07/2024 6:44 PST [facility] Videojugradiology Program [phone] (For Medical Practitioner Use Only) Attention Patients / Veterans: If you have questions or concerns about these test results, please contact your ordering provider or primary care team. Primary Diagnostic Code: CRITICAL ABNORMALITY Primary Interpreting Staff: RADIOLOGY,OUTSIDE SERVICE, Staff Physician / RADIOLOGY,OUTSIDE SERVICE [facility] intelloCut [facility] Pathology Reports: +/- 30 days [...] 02:23 PM LR MICROBIOLOGY REPORT: Reporting Lab: [facility] [CLIA# [id number]] [address] [place] [id number] Accession [UID]: [id number] [[id number]] Received: Jun 05, 2024@14:23 Collection sample: URINE CLEAN CATCH Collection date: Jun 05, 2024 14:23 Site/Specimen: URINE Provider: LORETTA HANSON Test(s) ordered: URINE CULTURE(MWGEORGE).......... completed: Jun 08, 2024 09:02 * BACTERIOLOGY FINAL REPORT => Jun 08, 2024 09:02 TECH CODE: [id number] Bacteriology Remark(s): NO GROWTH IN 24 HOURS, FINAL REPORT TO FOLLOW. FINAL AEROBIC REPORT: NO GROWTH =--=--=--=--=--=--=--=--=--= --=--=--=--=--=--=--=--=--=- -=--=--=--=--=--=--=-- Performing Laboratory: Bacteriology Report Performed By: [facility] [CLIA# [id number]] [address] [place] [address] CYRUS ESPINOZA [facility] Jun 02, 2024 11:29 AM LR SURGICAL PATHOLOGY REPORT: LOCAL TITLE: LR SURGICAL PATHOLOGY REPORT STANDARD TITLE: PATHOLOGY DIAGNOSTIC STUDY REPORT DATE OF NOTE: JUN 02, 2024@11:29:44 ENTRY DATE: JUN 02, 2024@11:29:44 AUTHOR: MAGDALENA STOCKTON MD EXP COSIGNER: URGENCY: STATUS: COMPLETED $APHDR Reporting Lab: [facility] [CLIA# [id number]] [address] [place] [address] - - - - - - - [...] - - - BRIEF CLINICAL HISTORY: HEIDI 3 Clinicl Hx: 48 year old man with [...] - - - PATHOLOGY REPORT Accession No. [facility] [id number] - - - - - - - - - - - - - - - - - - - - - - - - - - - - - - - - - - - - - - - - Gross description: [facility] 38 [id number];;1;Melinda REYNA This is a [facility] case number [facility] [id number]. Received in formalin [...] lower back: Hemangioma, completely excised. CPT code 23140 /roberto/ MAGDALENA STOCKTON MD Board Certified Dermatopathologist Signed Jun 02, 2024@11:29 Performing Laboratory: Surgical Pathology Report Performed By: [facility] [CLIA# [id number]] [address] [place] [id number] $FTR - - - - - - [...] - ELVIN REYNA JR STANDARD FORM 515 ID:[id number] SEX:M :1975 AGE: 48 LOC:CWM/NO/GS PCP: Loretta Hanson NP /roberto/ MAGDALENA STOCKTON MD Board Certified Dermatopathologist Signed: 06/02/2024 11:29 MAGDALENA STOCKTON MD [facility] Encounter Notes: All associated encounter notes This section contains the clinical notes associated to the Encounter. Date/Time Encounter Note(s) Provider Source Jun 18, 2024 09:09 AM PODIATRY NOTE: LOCAL TITLE: PODIATRY NOTE STANDARD TITLE: PODIATRY NOTE DATE OF NOTE: JUN 18, 2024@09:09 ENTRY DATE: JUN 18, 2024@09:09:30 AUTHOR: FOSTER,SALAS D EXP COSIGNER: URGENCY: STATUS: COMPLETED Podiatry [facility] Follow up Provider: Salas Kong Date: JUN 18, 2024 ELVIN BRAVOGINGER [address] [place] [id number] Jul 48 MALE [id number] PATIENT PHONE - Primary Care: LORETTA HANSON Follow up Visit Concern: Subjective: Patient previously seen for orthotic management and currently happy with current [facility] orthotics doing well but presents today to discuss chronic painful ingrown toenail on the right. He has had prior nail ablation on the lateral sides of the left hallux nail many years ago and remains very satisfied would like to have same procedure done on the right. He has mainly symptoms at the medial border and not so much on the left border but the nail is flared on both sides. [email or web address] FROM Mar TO Mar Service connections:Service Connected Disabilities with % Eligibility: NSC VERIFIED Medical problems active: Active Problem Gallbladder polyp K82.4 03/26/2023 LORETTA HANSON Pain in right arm M79.601 02/21/2023 LORETTA HANSON Poon's esophagus K22.70 09/18/2022 LORETTA HANSON Attention deficit hyperactivity dis 06/25/2022 ELISHA RAHMAN Sleep apnea G47.33 04/12/2022 LORETTA HANSON Overweight E66.3 04/12/2022 LORETTA HANSON GERD - Gastro-Esophageal Reflux Dis 04/11/2022 LORETTA HANSON Anxiety ([facility] [id number]) F41.9 04/11/2022 LORETTA HANSON Hyperlipidemia ([facility] [id number]) E78.5 04/11/2022 LORETTA HANSON Fatty liver K76.0 [...] DAILY Active Non-VA Medications Status 1) Non-VA OTHER CAP/TAB RACHANA WORKZ MUSHROOM COMPLEX BY ACTIVE MOUTH ONCE DAILY 2) Non-VA PROBIOTIC (CULTURELLE DIGESTIVE DAILY) CAP/TAB ACTIVE BY MOUTH 6 Total Medications Allergies: Data on this list may not be complete. Please check JLV. FACILITY ALLERGY/ADR -------- [facility] NO KNOWN ALLERGIES [facility] NO KNOWN ALLERGIES [facility] NO KNOWN ALLERGIES [place] [facility] No Known [facility]ergies [facility] Problem focused: Neurovascular status normal Right hallux nail with expanded nail plate causing pressure on ungual labia No clinical sign of infection present Impression: Abnormally wide hallux nail causing discomfort no clinical sign of infection presently Plan: -Discuss nail ablation with phenol under local anesthesia -Discussed aftercare -Discussed risks and benefits -Discussed timing patient would like to do before Thanksgiving Reviewed patient's-past medical history allergies no complications from clinical findings or chart review to proposed procedure -Scheduled for 9 AM on June 26 -Consent obtained today -Procedure phenol alcohol right hallux nail medial border/possibly lateral border. /roberto/ SALAS KONG DPM PODIATRY ATTENDING Signed: 06/18/2024 16:41 SALAS KONG [facility]
--- OUTSIDE RECORDS SUMMARY | 2024-07-17 16:46 | XMS_ITS | Encounter Summary ---
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 Date/Time Encounter Type Encounter Description Reason Provider Source Jun 18, 2024 11:00 AM MTMS BY PHARM ADDL 15 [facility] - IND ICD-10-CM F90.0 Attn-defct hyperactivity disorder, predom inattentive type CARMEN FRANCES IHZahra Encounter Template Text not used by [facility] Assessments - Encounter Diagnoses This section includes the primary and secondary diagnoses documented for the Encounter. Date/Time Primary/Secondary Diagnosis Diagnosis Name Provider Source Jun 18, 2024 11:31 AM PRIMARY Attn-defct hyperactivity disorder, predom inattentive type CARMEN FRANCES [facility] Plan of Treatment: Future Appointments (+ 6 months) and Future Tests (+/- 45 days) The Plan of Treatment section includes future care activities for the patient from all [place] treatmentfacilities. This section includes future appointments and [...] 26, 2024 09:00 AM [facility] Jul 13, 2024 09:00 AM [facility] Jul 22, 2024 08:30 AM AMBULATORY MEDICINE [facility] Oct 15, 2024 10:00 AM AMBULATORY MEDICINE [facility] Active, Pending, and Scheduled Orders This section includes a listing of several types of active, pending, and scheduled orders, including clinic medications orders, diagnostic test orders, procedure orders and consult orders; where the start date of the order is 45 days before the date of the Encounter or 45 days after the date of theEncounter. The data comes from all [facility]. Test Date/Time Test Type Test Details Facility Name Jun 03, 2024 12:30 PM Consult Order DERMATOLOGY/NH[facility] (OUTPT) Cons Wire Harness Design Engineer's Choice [facility] Jun 18, 2024 12:00 AM Laboratory - Chemistry Order DRUGS OF ABUSE URINE (DRUG) SP [facility] Jun 30, 2024 01:22 PM Consult Order COMMUNITY CARE- PSYCHOTHERAPY Cons Wire Harness Design Engineer's Choice [facility] Lab Results: +/- 30 days [...] Range Comment Jun 05, 2024 02:23 [address] [facility] CT/GC DNA PANEL(IN-HOUSE) Specimen Type: URINE Comment: Test performed on the [employer] Genexpert. A negative test results does not exclude the possibility of infection because results may be affected by improper specimen collection, concurrent antibiotic therapy, or the number of organisms in the specimen which may be below the sensitivity of the test. Ordering Provider: MAR HANSON Report Released Date/Time: Jun 05, 2024 02:02 PM Reporting Lab: [address] [id number] Performing Lab: [address] [address] GC PCR NOT DETECTED Not Detected CT PCR NOT DETECTED Not Detected Jun 05, 2024 02:23 PM [facility] MICROSCOPIC AUTOMATED, URINE Specimen Type: URINE Comment: If Glucose = >500 and Ketones are positive, please alert the Physician. Ordering Provider: MAR HANSON Report Released Date/Time: Jun 05, 2024 02:02 PM Reporting Lab: [address] [phone] Performing Lab: [address] [address] UA WBC 0-5 /[HPF] 0-5 UA MUCUS FEW /[LPF] Trace UA RBC 11-20 /[HPF] H 0-3 Jun 05, 2024 02:23 PM [facility] URINALYSIS CLEAN CATCH Specimen Type: URINE Comment: If Glucose = >500 and Ketones are positive, please alert the Physician. Ordering Provider: MAR HANSON Report Released Date/Time: Jun 05, 2024 02:02 PM Reporting Lab: [address] [address] Performing Lab: [address] [address] UA COLOR Light-Yellow Yellow UA APPEARANCE Clear [...] Facil ity Aug 26, 2023 10:00 AM [place] FORMER USER [facility] Tobacco Use History This section includes a history of the smoking, or tobacco-related health factors, that were collected on or before the date of the Encounter. The data comes from the [place] facility where the Encounter took place. Date/Time Smoking Status/Tobacco Use Comment F acility Aug 26, 2023 10:00 AM [place] QU[place] 15 YRS OR MORE [facility] Apr 11, 2022 11:00 AM [place] FORMER US[place] [facility] Apr 11, 2022 11:00 AM [place] 15 YRS OR MORE [facility] Advance Directives: All historical and current [...] 27, 2005 ADVANCE DIRECTIVE SHARLENE SIDHU [facility] Sep 10, 2005 ADVANCE DIRECTIVE DISCUSSION FRANCE RODRIGEZ [facility] Aug 14, 2004 ADVANCE DIRECTIVE [...] the Encounter. The data comes from all [place] treatment facilities. Date/Time Radiology Report Provider Source Jun 05, 2024 02:[address] ABDOMEN AND PELVIS WITHOUT CONT.: ELVIN REYNA [id number] -[id number] M Exm Date: JUN 05, 2024@14:27 Req Phys: LORETTA HANSON Loc: CWM/NO/PACT 7 (Req'g Loc) Img Loc: [place]/CT Service: Unknown [place] [facility] [place] [address] (Case [id number] COMPLETE) CT ABDOMEN AND PELVIS WITHOUT CON(CT Detailed) CPT:71843 Reason for Study: lower abdominal pain Clinical History: h/o kidney stone, having worsening pain Report Status: Verified Date Reported: JUN 07, 2024 Date Verified: JUN 07, 2024 Set And Exhibit Designer E-Sig: Report: CT ABDOMEN AND PELVIS WITHOUT CONT. HISTORY: lower abdominal pain COMPARISON: 11/28/2091. TECHNIQUE: CT of the abdomen and pelvis with multiplanar reformats was performed at the local [place] facility. 497 images were received by the [place] National Teleradiology Program (NTP) for interpretation. RADIATION [...] read-back verification. READING PHYSICIAN: Rashida Hawk MD -[phone] 06/07/2024 6:44 PST [facility] National Teleradiology Program [phone] (For Medical Practitioner Use Only) Attention Patients / Veterans: If you have questions or concerns about these test results, please contact your ordering provider or primary care team. Primary Diagnostic Code: CRITICAL ABNORMALITY Primary Interpreting Staff: RADIOLOGY,OUTSIDE SERVICE, Staff Physician / RADIOLOGY,OUTSIDE SERVICE [facility] [employer] [facility] Pathology Reports: +/- 30 days of [...] the Encounter. The data comes from all [place] treatment facilities. Date/Time Pathology Report Provider Source Jun 05, 2024 02:23 PM LR MICROBIOLOGY REPORT: Reporting Lab: [facility] [employer] [facility] [CLIA# [id number]] [address] [place] [id number] Accession [UID]: [id number] [[id number]] Received: Jun 05, 2024@14:23 Collection sample: URINE CLEAN CATCH Collection date: Jun 05, 2024 14:23 Site/Specimen: URINE Provider: LORETTA HANSON Test(s) ordered: URINE CULTURE(MWROX).......... completed: Jun 08, 2024 09:02 * BACTERIOLOGY FINAL REPORT => Jun 08, 2024 09:02 TECH CODE: [id number] Bacteriology Remark(s): NO GROWTH IN 24 HOURS, FINAL REPORT TO FOLLOW. FINAL AEROBIC REPORT: NO GROWTH =--=--=--=--=--=--=--=--=--= --=--=--=--=--=--=--=--=--=- -=--=--=--=--=--=--=-- Performing Laboratory: Bacteriology Report Performed By: [facility] [CLIA# [id number]] [address] [place] [address] CYRUS ESPINOZA [facility] Jun 02, 2024 11:29 AM LR SURGICAL PATHOLOGY REPORT: LOCAL TITLE: LR SURGICAL PATHOLOGY REPORT STANDARD TITLE: PATHOLOGY DIAGNOSTIC STUDY REPORT DATE OF NOTE: JUN 02, 2024@11:29:44 ENTRY DATE: JUN 02, 2024@11:29:44 AUTHOR: MAGDALENA STOCKTON MD EXP COSIGNER: URGENCY: STATUS: COMPLETED $APHDR Reporting Lab: [facility] [CLIA# [id number]] [address] [place] [phone] - - - - - - - [...] BRIEF CLINICAL HISTORY: HEIDI 24 533 Clinicl Hx: 48 year old [...] - - - PREOPERATIVE DIAGNOSIS: HEIDI [place] 533 nEW, EXOPHYTIC, BOTHERSOME SKIN LESION MIDLINE [...] - - - PATHOLOGY REPORT Accession No. [place] [id number] - - - - - - - - - - - - - - - - - - - - - - - - - - - - - - - - - - - - - - - - Gross description: [facility] 16 0416;;1;Melinda REYNA This is a [facility] case number [place] [id number]. Received in formalin labeled with the patient's [...] lower back: Hemangioma, completely excised. CPT code 75574 /roberto/ MAGDALENA STOCKTON MD Board Certified Dermatopathologist Signed Jun 02, 2024@11:29 Performing Laboratory: Surgical Pathology Report Performed By: [facility] [CLIA# [id number]] [address] [place] [phone] $FTR - - - - - - [...] - ELVIN REYNA JR STANDARD FORM 515 ID:[id number] SEX:M :1975 AGE: 48 LOC:CWM/NO/GS PCP: Loretta Hanson NP /roberto/ MAGDALENA STOCKTON MD Board Certified Dermatopathologist Signed: 06/02/2024 11:29 MAGDALENA STOCKTON MD [facility] Encounter Notes: All associated encounter notes This section contains the clinical notes associated to the Encounter. Date/Time Encounter Note(s) Provider Source Jun 18, 2024 11:04 AM PHARMACY MEDICATION MGT NOTE: LOCAL TITLE: CLINICAL PHARMACIST MH F/U NOTE STANDARD TITLE: PHARMACY MEDICATION MGT NOTE DATE OF NOTE: JUN 18, 2024@11:04 ENTRY DATE: JUN 18, 2024@11:04:24 AUTHOR: HOSSEIN FRANCES COSIGNER: URGENCY: STATUS: COMPLETED [facility] Connect ([facility]VC) Standard Documentation VVC Clinician Resources Only: E911 (Emergency Call Relay Center): [phone] National Veterans Crisis Line - 988 then press #1. [facility] Suicide Coordinator [phone], Ext. [phone]; Back-up Ext. [phone] [place] Police, [place], Danette [phone] Introduction: Visit is being conducted by [place] [facility]. identified with 2 identifiers: [X] Full Name [X] Date of [ ] [place] ID Card Emergency Plan: confirmed and/or provided the following information in case of emergency or technology failure. PATIENT PHONE - PHONE NUMBER [CELLULAR] - Is patient phone number correct, if not, enter below: Mcmillan's phone number: ELVIN REYNA JR [address], [address] 's present location and address for appointment: at home 's emergency contact name and phone number: domestic partner, Anny Pickard [phone] Mcmillan reported that location is private and safe: Yes Informed Consent: Mcmillan informed of the risks and benefits of Telehealth video care. has the right to refuse video services. If refuses video visit, a efls-hb-nman visit will be scheduled. verbalized consent for [...] ID: 48yo WHITE MALE -=-=-=-=-=-=-=-=-=-=-=-=-=-=- =-=-=-=-=-==-=-=-=-=-=-=-=-=- =-=-=-=-=-=Subjective- Mcmillan was last seen on [id number] with the following pharmacotherapeutic plan: [X] No changes [ ] Discontinue: [ ] Initiate: [ ] Change the following: Treating Dx(s): ADHD INTERIM HISTORY pt w/ CC of I just wanted to talk to you in general. expressed interest in trying another medication again today. states that my partner keeps bring it up and that many family members has had good luck w/ Maame. explains that his partner had identified two compelling behaviors that are of concern include negative self-talk; and negative exasperations over little things...I get very frustrated or dissapointed about the little stuff, even though it's not really a big deal. medication education provided, to which pt provided verbal understanding. pt also expressed awareness that mentioned family members on this medication may have success for different reasons than what he is intending to find w/ this medication. explained that there is no certainty to this writers awareness that the medication helps with negative self-talk; but, that there may be some benefit regarding impulse control as it may be related to uncontrolled ADHD symptoms; and that treatment of ADHD may result in improved mood overall. pt agreed to UDS; and that the medications requires authorization prior to prescribing. -=-=-=-=-=-=-=-=-=-=-=-=-=-=- =-=-=-=-=-==-=-=-=-=-=-=-=-=- =-=-=-=-=-=-Objective- Mental Status Exam Appearance: [X] Unremarkable [X] Appropriate to season [ ] Neatly groomed [ ] Somewhat disheveled [ ] Other: Behavior Mood/Affect: [ ] Appropriate [X] Irritable [ ] Normal [ ] Euphoric [ ] Pleasant [ ] Provocative [ ] Bright [ ] Depressed [ ] Anxious [ ] Frustrated [ ] Anxious [X] Frustrated [ ] Maintained good eye contact [ ] Restricted [ ] Flat [ ] Other: [ ] Subdued [ ] Unremarkable [X] Responsive & Congruent w/mood Energy: [ ] [...] Overweight 7. GERD - Gastro-Esophageal Reflux Disease ([facility] [id number]) 8. Anxiety ([facility] [id number]) 9. Hyperlipidemia ([facility] [id number]) 10. Fatty liver 11. Family history of [...] escitalopram (2023) - hydroxyzine (2004) - paroxetine ([id number]) - risperidone () - sertraline () - trazodone ([id number]) [X] Per Patient: - SI w/ bupropion Vitals: Ht: 66 in [167.6 cm] (06/05/2024 13:52) Wt: 244 lb [110.68 kg] (06/05/2024 13:52) BMI: 39.5 BP: 131/82 (06/05/2024 13:52) HR: 91 (06/05/2024 13:52) Labs: CHEM 7 TREND LAB CUMULATIVE SELECTED Collection DT Spec GLUCOSE BUN CREATIN Sodium K+/Pot CL CO2 02/12/2024 08:41 SERUM 92 19 0.99 139 4.1 106 22 08/26/2023 09:57 SERUM 98 16 1.01 140 4.2 109 21 02/28/2023 08:17 SERUM 88 14 1.00 140 4.2 105 24 08/27/2022 11:44 SERUM 93 13 1.14 138 4.4 105 23 04/11/2022 12:06 SERUM 83 14 1.00 137 4.6 106 22 LIVER PANEL TREND Collection DT Spec AST ALT T BILI ALK JAMIN T. PROT ALBUMIN 02/12/2024 08:41 SERUM 20 39 0.8 68 6.8 4.0 08/26/2023 09:57 SERUM 30 50 0.7 72 6.9 4.1 02/28/2023 08:17 SERUM 21 41 1.0 71 6.8 4.2 08/27/2022 11:44 SERUM 28 42 1.1 55 7.5 4.5 04/11/2022 12:06 SERUM 23 37 1.1 53 7.0 4.3 CBC TREND Collection DT Spec WBC RBC HGB HCT MCV MCH PLT 02/12/2024 08:41 BLOOD 7.42 5.66 16.0 46.9 82.9 28.3 223 08/26/2023 09:57 BLOOD 7.02 5.84 H 16.5 48.2 82.5 28.3 207 02/28/2023 08:17 BLOOD 6.17 5.69 H 15.9 46.5 81.7 L 27.9 225 08/27/2022 11:44 BLOOD 7.48 6.04 H 16.5 48.5 80.3 L 27.3 238 04/11/2022 12:06 BLOOD 7.55 5.59 15.8 45.8 81.9 L 28.3 237 LIPID PANEL TREND Collection DT Spec CHOL HDL CHO/HDL LDL-c TRIG 02/12/2024 08:41 SERUM 209 H 34 L 6.1 151 H 121 08/26/2023 09:57 SERUM 220 H 34 L 6.5 169 H 85 02/28/2023 08:17 SERUM 179 29 L 6.2 127 117 08/27/2022 11:44 SERUM 199 32 L 6.2 147 H 102 04/11/2022 12:06 SERUM 199 32 L 6.2 145 H 109 HEMOGLOBIN A1C TREND Collection DT Spec HGBA1c 08/26/2023 09:57 BLOOD 5.0 02/28/2023 08:17 BLOOD 4.9 08/27/2022 11:44 BLOOD 5.2 04/11/2022 12:06 BLOOD 4.9 LOCATION OF FULL RESULTS REPORT: The full test results report PDF including impacted medications, individual genotypes, and drug-gene interactions can be found in [employer] under the following - PROC DT date: 11/11/2023 TEST RESULTS (15-GENE PANEL): Gene: ABCG2 Result: Decreased function Gene: CYP2B6 Result: Intermediate metabolizer Gene: CYP2C Result: Low sensitivity Gene: [id number] Result: Rapid metabolizer Gene: CYP2C9 Result: Intermediate metabolizer Gene: CYP2D6 Result: Normal metabolizer Gene: CY Result: Poor metabolizer Gene: CYP4F2 Result: Reduced activity Gene: DPYD Result: Normal metabolizer Gene: G6PD Result: Normal function Gene: [id number] Result: Normal metabolizer Gene: RERG1Z7 Result: Normal function Gene: TPMT Result: Normal metabolizer Gene: UGT1A1 Result: Intermediate metabolizer Gene: VKORC1 Result: Intermediate warfarin sensitivity HLA-B *57:01 screen Negative Low Risk There may be a delay in the availability of the PGx results report in [employer]. If immediate access to the patient report is needed, please navigate to [employer] - [employer] Summaries & Documents Widget to find Roly's report under PharmGx Panel. 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 requesting to trial lisdexamfetamine based on information and feedback provided to him by his SO, noting that treatment of ADHD may improve mood symptoms as a result PLAN 1. Pharmacotherapy [ ] No changes [ ] Discontinue: [X] Initiate: lisdexamfetamine 10mg daily, if approved [ ] Change the followin. Labs/tests: UDS pending 3. Consult(s) or Coordination of care: lisdexamfetamine PADR pending 4. Other: n/a Education was provided [...] Factor Reduction [ ] Other: RTC Interval: tbd Next Apt: tbd Mcmillan was provided selling underwriter's contact information and instructed to contact selling underwriter as needed for any changes to scheduling or concerns otherwise. Mcmillan is aware of actions to take if they feel unsafe, including calling the [facility]'s Crisis Line (#[phone]); calling 911; or going to the nearest urgent care or emergency room. The is also aware of how to contact the clinic should the require additional services prior to the next appointment. Time spent on chart review, session, and documentation: 30minutes /es/ Hossein Frances PharmD Clinical Pharmacist Practitioner Signed: 06/24/2024 12:32 [facility]IN FRANCES [place] [facility]
--- OUTSIDE RECORDS SUMMARY | 2024-07-17 16:46 | XMS_ITS ---
Author Name [facility] [place] [facility] [place] Organization [facility] [place] [facility] [place] Address [address], [place] [address] Care Team Providers Care Boatswain'S Mate Name Role Phone LORETTA HANSON Primary Care [...] Gonzalez's Name Patient's Relationship to Policy Gonzalez [facility] MEDICAID [facility] Aug 05, 2021 01 [id number] ELVIN WALSH PATIENT Selected Encounter This section includes the information on record at [place] for the Encounter. Date/Time Encounter Type Encounter Description Reason Pro vider Source Jun 22, 2024 02:33 PM Outpatient Encounter COMMUNITY CARE CONSULT IHE [...] 26, 2024 09:00 AM AMBULATORY - MEDICINE [facility] Jul 13, 2024 09:00 AM AMBULATORY MEDICINE [facility] NTRL TRN [facility] Jul 22, 2024 08:30 AM AMBULATORY MEDICINE [facility] Oct 15, 2024 10:00 AM [facility] Active, Pending, and Scheduled Orders This section includes a listing of several types of active, pending, and scheduled orders, including clinic medications orders, diagnostic test orders, procedure orders and consult orders; where the start date of the order is 45 days before the date of the Encounter or 45 days after the date of theEncounter. The data comes from all [facility]. Test Date/Time Test Type Test Details Facility Name Jun 03, 2024 12:30 PM Consult Order DERMATOLOGY/[facility] (OUTPT) Cons Universal Grinder Tool's Choice [facility] Jun 18, 2024 12:00 AM Laboratory - Chemistry Order DRUGS OF ABUSE URINE (DRUG) SP [facility] Jun 30, 2024 01:22 PM Consult Order [facility] Cons Universal Grinder Tool's Choice [facility] Lab Results: +/- 30 days of the [...] Range Comment Jun 05, 2024 02:23 PM [facility] CT/GC DNA PANEL(IN-HOUSE) Specimen Type: URINE Comment: Test performed on the [employer] Genexpert. A negative test results does not exclude the possibility of infection because results may be affected by improper specimen collection, concurrent antibiotic therapy, or the number of organisms in the specimen which may be below the sensitivity of the test. Ordering Provider: MAR HANSON Report Released Date/Time: Jun 05, 2024 02:02 PM Reporting Lab: [address] [address] Performing Lab: [address] [address] GC PCR NOT DETECTED Not Detected CT PCR NOT DETECTED Not Detected Jun 05, 2024 02:23 PM [facility] MICROSCOPIC AUTOMATED, URINE Specimen Type: URINE Comment: If Glucose = >500 and Ketones are positive, please alert the Physician. Ordering Provider: MAR HANSON Report Released Date/Time: Jun 05, 2024 02:02 PM Reporting Lab: [address] [address] Performing Lab: [address] [address] UA WBC 0-5 /[HPF] 0-5 UA MUCUS FEW /[LPF] Trace UA RBC 11-20 /[HPF] H 0-3 Jun 05, 2024 02:23 PM [facility] URINALYSIS CLEAN CATCH Specimen Type: URINE Comment: If Glucose = >500 and Ketones are positive, please alert the Physician. Ordering Provider: MAR HANSON Report Released Date/Time: Jun 05, 2024 02:02 PM Reporting Lab: [address] [address] Performing Lab: [address] [address] UA COLOR Light-Yellow Yellow UA APPEARANCE Clear [...] 26, 2023 10:00 AM [place]-TOBACCO FORMER USER [facility] Tobacco Use History This section includes a history of the smoking, or tobacco-related health factors, that were collected on or before the date of the Encounter. The data comes from the [place] facility where the Encounter took place. Date/Time Smoking Status/Tobacco Use Comment F acility Aug 26, 2023 10:00 AM ME-TOBACCO QUIT 15 YRS OR MORE [facility] Apr 11, 2022 11:00 AM ME-TOBACCO FORMER USER [facility] Apr 11, 2022 11:00 AM ME-TOBACCO QUIT 15 YRS OR MORE [facility] Advance [...] document. The data comes from all [facility]. Date Advance Directives Provider Source May 16, 2011 ADVANCE DIRECTIVE DISCUSSION TON SARAVIA Sep 27, 2005 ADVANCE DIRECTIVE SHARLENE SIDHU [facility] Sep 10, 2005 ADVANCE DIRECTIVE DISCUSSION FRANCE RODRIGEZ [facility] Aug 14, 2004 ADVANCE DIRECTIVE [...] the Encounter. The data comes from all [place] treatment facilities. Date/Time Radiology Report Provider Source Jun 05, 2024 02:[address] ABDOMEN AND PELVIS WITHOUT CONT.: ELVIN REYNA [id number] -1975 M Exm Date: JUN 05, 2024@14:27 Req Phys: LORETTA HANSON Loc: CWM/NO/PACT 7 (Req'g Loc) Img Loc: NHM/CT Service: Unknown [place] CNTRL [facility] [place] [address] (Case [id number] COMPLETE) CT ABDOMEN AND PELVIS WITHOUT CON(CT Detailed) CPT:79143 Reason for Study: lower abdominal pain Clinical History: h/o kidney stone, having worsening pain Report Status: Verified Date Reported: JUN 07, 2024 Date Verified: JUN 07, 2024 Retort Feeder Ground Bone E-Sig: Report: CT ABDOMEN AND PELVIS WITHOUT CONT. HISTORY: lower abdominal pain COMPARISON: 11/28/2091. TECHNIQUE: CT of the abdomen and pelvis with multiplanar reformats was performed at the local [place] facility. 497 images were received by the [place] National Teleradiology Program (NTP) for interpretation. RADIATION [...] read-back verification. READING PHYSICIAN: Rashida Hawk MD -[phone] 06/07/2024 6:44 PST [facility] National Teleradiology Program [phone] (For Medical Practitioner Use Only) Attention Patients / Veterans: If you have questions or concerns about these test results, please contact your ordering provider or primary care team. Primary Diagnostic Code: CRITICAL ABNORMALITY Primary Interpreting Staff: RADIOLOGY,OUTSIDE SERVICE, Staff Physician / RADIOLOGY,OUTSIDE SERVICE [facility] Pathology Reports: +/- 30 days of the [...] the Encounter. The data comes from all [place] treatment facilities. Date/Time Pathology Report Provider Source Jun 05, 2024 02:23 PM LR MICROBIOLOGY REPORT: Reporting Lab: [facility] [CLIA# [id number]] [address] [place] [id number] Accession [UID]: [id number] [[id number]] Received: Jun 05, 2024@14:23 Collection sample: URINE CLEAN CATCH Collection date: Jun 05, 2024 14:23 Site/Specimen: URINE Provider: LORETTA HANSON Test(s) ordered: URINE CULTURE(MWROX).......... completed: Jun 08, 2024 09:02 * BACTERIOLOGY FINAL REPORT => Jun 08, 2024 09:02 TECH CODE: [id number] Bacteriology Remark(s): NO GROWTH IN 24 HOURS, FINAL REPORT TO FOLLOW. FINAL AEROBIC REPORT: NO GROWTH =--=--=--=--=--=--=--=--=--= --=--=--=--=--=--=--=--=--=- -=--=--=--=--=--=--=-- Performing Laboratory: Bacteriology Report Performed By: [facility] [CLIA# [id number]] [address] [place] [address] CYRUS ESPINOZA [facility] Jun 02, 2024 11:29 AM LR SURGICAL PATHOLOGY REPORT: LOCAL TITLE: LR SURGICAL PATHOLOGY REPORT STANDARD TITLE: PATHOLOGY DIAGNOSTIC STUDY REPORT DATE OF NOTE: JUN 02, 2024@11:29:44 ENTRY DATE: JUN 02, 2024@11:29:44 AUTHOR: MAGDALENA STOCKTON MD EXP COSIGNER: URGENCY: STATUS: COMPLETED $APHDR Reporting Lab: [facility] [CLIA# [id number]] [address] [place] [address] - - - - - - - [...] - - - PATHOLOGY REPORT Accession No. [facility] 533 - - - - - - [...] - - - PATHOLOGY REPORT Accession No. [facility] 24 533 - - - - - - - - - - - - - - - - - - - - - - - - - - - - - - - - - - - - - - - - Gross description: [facility] 25 3314;;1;Melinda REYNA This is a [facility] case number [facility] 24 533. Received in formalin labeled with [...] margin. The specimen is inked as follows: 12-3 o'clock peripheral margin blue, 3-6-9 o'clock peripheral margin orange, deep black. The specimen is entirely submitted as follows: 1: 9:00 tip 2: 3:00 tip 3-4: Body JK 06/01/2024 Skin, midline lower back: Hemangioma, completely excised. CPT code 91265 /roberto/ MAGDALENA STOCKTON MD Board Certified Dermatopathologist Signed Jun 02, 2024@11:29 Performing Laboratory: Surgical Pathology Report Performed By: [facility] [CLIA# [id number]] [address] [place] [address] $FTR - - - - - - [...] - ELVIN REYNA JR STANDARD FORM 515 ID:[id number] SEX:M :1975 AGE: 48 LOC:CWM/NO/GS PCP: Loretta Hanson NP /roberto/ MAGDALENA STOCKTON MD Board Certified Dermatopathologist Signed: 06/02/2024 11:29 MAGDALENA STOCKTON MD [facility] Encounter Notes: All associated encounter notes This section contains the clinical notes associated to the Encounter. Date/Time Encounter Note(s) Provider Source Jun 22, 2024 02:33 PM NONVA NOTE: LOCAL TITLE: [facility] PRESENTING CARE COORD PLAN STANDARD TITLE: NONVA NOTE DATE OF NOTE: JUN 22, 2024@14:33 ENTRY DATE: JUN 22, 2024@14:33:26 AUTHOR: MARY DALEY COSIGNER: URGENCY: STATUS: COMPLETED Emergency Notification Intake Date Presenting to the Facility: May Method of Contact: Notified from ECR worklist Notification ID: [id number] [facility] Referral #: [id number] [facility] Name: Hospital: [facility] Address: City: [place] State: [place] Zip Code: Phone : Community Facility Point of Contact: Name: Antonio Phone: Chief complaint: Flank Pain Primary Diagnosis: Disposition Discharged Date of discharge: May Discharge to Comment: ER Only /roberto/ MARY CENTENO Signed: 06/22/2024 14:34 Receipt Acknowledged By: 06/22/2024 16:04 /roberto/ Nadia ESTRADA,RN,[facility] TRANSFER/TRAVELING COORDINATOR MARY DALEY ASHER
--- OUTSIDE RECORDS SUMMARY | 2024-07-17 16:46 | XMS_ITS | Encounter Summary ---
Author Name [facility] [place] Organization [place] Address [address], [place] [address] Care Team Providers Care University President Name Role Phone LORETTA HANSON Primary Care [...] [facility] Aug 05, 2021 01 [id number] ELVIN WALSH PATIENT Selected Encounter This section includes the information on record at [place] for the Encounter. Date/Time Encounter Type Encounter Description Reason Pro vider Source Jun 18, 2024 09:07 AM Outpatient Encounter EVENT (HISTORICAL) IHE Encounter [...] 26, 2024 09:00 AM AMBULATORY - [facility] Jul 13, 2024 09:00 AM AMBULATORY - MEDICINE [facility] Jul 22, 2024 08:30 AM [facility] Oct 15, 2024 10:[address] [facility] Active, Pending, and Scheduled Orders This section includes a listing of several types of active, pending, and scheduled orders, including clinic medications orders, diagnostic test orders, procedure orders and consult orders; where the start date of the order is 45 days before the date of the Encounter or 45 days after the date of theEncounter. The data comes from all [facility]. Test Date/Time Test Type Test Details Facility Name Jun 03, 2024 12:30 PM Consult Order DERMATOLOGY/[facility]M (OUTPT) Cons Minister Assistant's Choice [facility] Jun 18, 2024 12:00 AM Laboratory - Chemistry Order DRUGS OF ABUSE URINE (DRUG) SP [facility] Jun 30, 2024 01:22 PM Consult Order [facility]- PS[facility] Minister Assistant's Choice [facility] Lab Results: +/- 30 days of the [...] Comment Jun 05, 2024 02:23 PM [facility] CT/GC DNA PANEL(IN-HOUSE) Specimen Type: URINE Comment: Test performed on the [employer] Genexpert. A negative test results does not exclude the possibility of infection because results may be affected by improper specimen collection, concurrent antibiotic therapy, or the number of organisms in the specimen which may be below the sensitivity of the test. Ordering Provider: MAR HANSON Report Released Date/Time: Jun 05, 2024 02:02 PM Reporting Lab: [address] [address] Performing Lab: [address] [address] GC PCR NOT DETECTED Not Detected CT PCR NOT DETECTED Not Detected Jun 05, 2024 02:23 PM [facility] MICROSCOPIC AUTOMATED, URINE Specimen Type: URINE Comment: If Glucose = >500 and Ketones are positive, please alert the Physician. Ordering Provider: MAR HANSON Report Released Date/Time: Jun 05, 2024 02:02 PM Reporting Lab: [address] [address] Performing Lab: [address] [address] UA WBC 0-5 /[HPF] 0-5 UA MUCUS FEW /[LPF] Trace UA RBC 11-20 /[HPF] H 0-3 Jun 05, 2024 02:23 PM [facility] URINALYSIS CLEAN CATCH Specimen Type: URINE Comment: If Glucose = >500 and Ketones are positive, please alert the Physician. Ordering Provider: MAR HANSON Report Released Date/Time: Jun 05, 2024 02:02 PM Reporting Lab: [address] [address] Performing Lab: [address] [address] UA COLOR Light-Yellow Yellow UA APPEARANCE Clear [...] Terri ity Aug 26, 2023 10:00 AM [place]-TOBACCO FORMER USER [facility] Tobacco Use History This section includes a history of the smoking, or tobacco-related health factors, that were collected on or before the date of the Encounter. The data comes from the [place] facility where the Encounter took place. Date/Time Smoking Status/Tobacco Use Comment F acility Aug 26, 2023 10:00 AM [place]-TOBACCO QUIT 15 YRS OR MORE [facility] Apr 11, 2022 11:00 AM [place]-TOBACCO FORMER USER [facility] Apr 11, 2022 11:00 AM [place]-TOBACCO QUIT 15 YRS OR MORE [facility] Advance Directives: All historical and current Section Date Range: From patient's date of to the date document was created. This section includes ALL of a patient's completed or amended [place] Advance and Rescinded Directives. The entries below indicate that a directive exists for the patient, but an actual copy is not included with this document. The data comes from all [facility]. Date Advance Directives Provider Source May 16, 2011 ADVANCE DIRECTIVE DISCUSSION TON SARAVIA Sep 27, 2005 ADVANCE DIRECTIVE SHARLENE SIDHU [facility] Sep 10, 2005 ADVANCE DIRECTIVE DISCUSSION FRANCE RODRIGEZ [facility] Aug 14, 2004 ADVANCE DIRECTIVE [...] ABDOMEN AND PELVIS WITHOUT CONT.: ELVIN REYNA [id number] -1975 M Exm Date: JUN 05, 2024@14:27 Req Phys: LORETTA HANSON Loc: CWM/NO/PACT 7 (Req'g Loc) Img Loc: NHM/CT Service: Unknown [place] [facility] [place] [address] (Case 335 COMPLETE) CT ABDOMEN AND PELVIS WITHOUT CON(CT Detailed) CPT:33060 Reason for Study: lower abdominal pain Clinical History: h/o kidney stone, having worsening pain Report Status: Verified Date Reported: JUN 07, 2024 Date Verified: JUN 07, 2024 Senior [employer]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 HISTORY: lower abdominal pain COMPARISON: 11/28/2091. TECHNIQUE: CT of the abdomen and pelvis with multiplanar reformats was performed at the local [place] facility. 497 images were received by the [place] National Teleradiology Program (NTP) for interpretation. RADIATION [...] read-back verification. READING PHYSICIAN: Rashida Hawk MD -[phone] 06/07/2024 6:44 PST [facility] National Teleradiology Program [phone] (For Medical Practitioner Use Only) Attention Patients / Veterans: If you have questions or concerns about these test results, please contact your ordering provider or primary care team. Primary Diagnostic Code: CRITICAL ABNORMALITY Primary Interpreting Staff: RADIOLOGY,OUTSIDE SERVICE, Staff Physician / RADIOLOGY,OUTSIDE SERVICE [facility] Pathology Reports: +/- 30 days of the [...] comes from all [place] treatment facilities. Date/Time Pathology Report Provider Source Jun 05, 2024 02:23 PM LR MICROBIOLOGY REPORT: Reporting Lab: [facility] [CLIA# [id number]] [address] [place] [address] Accession [UID]: [id number] [[id number]] Received: Jun 05, 2024@14:23 Collection sample: URINE CLEAN CATCH Collection date: Jun 05, 2024 14:23 Site/Specimen: URINE Provider: LORETTA HANSON Test(s) ordered: URINE CULTURE(MWROX).......... completed: Jun 08, 2024 09:02 * BACTERIOLOGY FINAL REPORT => Jun 08, 2024 09:02 TECH CODE: [id number] Bacteriology Remark(s): NO GROWTH IN 24 HOURS, FINAL REPORT TO FOLLOW. FINAL AEROBIC REPORT: NO GROWTH =--=--=--=--=--=--=--=--=--= --=--=--=--=--=--=--=--=--=- -=--=--=--=--=--=--=-- Performing Laboratory: Bacteriology Report Performed By: [facility] [CLIA# [id number]] [address] [place] [address] CYRUS ESPINOZA [facility] Jun 02, 2024 11:29 AM LR SURGICAL PATHOLOGY REPORT: LOCAL TITLE: LR SURGICAL PATHOLOGY REPORT STANDARD TITLE: PATHOLOGY DIAGNOSTIC STUDY REPORT DATE OF NOTE: JUN 02, 2024@11:29:44 ENTRY DATE: JUN 02, 2024@11::44 AUTHOR: MAGDALENA STOCKTON MD EXP COSIGNER: URGENCY: STATUS: COMPLETED $APHDR Reporting Lab: [facility] [CLIA# [id number]] [address] [place] [address] - - - - - - - [...] REPORT Accession No. [facility] 533 - - - - - - [...] REPORT Accession No. [facility] 24 533 - - - - - - - - - - - - - - - - - - - - - - - - - - - - - - - - - - - - - - - - Gross description: [facility] 25 [id number];;1;Melinda REYNA This is a [facility] case number [facility] 24 533. Received in formalin labeled with [...] lower back: Hemangioma, completely excised. CPT code 64451 /roberto/ MAGDALENA STOCKTON MD Board Certified Dermatopathologist Signed Jun 02, 2024@11:29 Performing Laboratory: Surgical Pathology Report Performed By: [facility] [CLIA# [id number]] [address] [place] [address] $FTR - - - - - - [...] - ELVIN REYNA JR STANDARD FORM 515 ID:[id number] SEX:M :1975 AGE: 48 LOC:CWM/NO/GS PCP: Loretta Hanson NP /roberto/ MAGDALENA STOCKTON MD Board Certified Dermatopathologist Signed: 06/02/2024 11:29 MAGDALENA STOCKTON MD [place] CNT WSN [facility]
--- OUTSIDE RECORDS SUMMARY | 2024-07-17 16:46 | XMS_ITS | Encounter Summary ---
Author Name [facility] [place] Address [address], [place] [address] Care Team Providers Care Regulatory Submissions Associate Name Role Phone LORETTA HANSON Primary Care [...] Gonzalez's Name Patient's Relationship to Policy Gonzalez [facility] MEDICAID [facility] Aug 05, 2021 01 [id number] ELVIN WALSH PATIENT Selected Encounter This section includes the information on record at [place] for the Encounter. Date/Time Encounter Type Encounter Description Reason Pro vider Source May 15, 2024 12:00 AM Outpatient Encounter COMMUNITY CARE CONSULT [...] The data comes from all [place] treatment [facility]. Appointment Date/Time Appointment Type Appointme nt Facility Name May 21, 2024 11:00 AM AM[facility]ULATORY [facility] [place] [facility] May 22, 2024 01:30 PM AMBULATORY [facility] MEDICINE [facility] [place] [facility] May 29, 2024 02:00 PM AM[facility]ULATORY [facility] MEDICINE [facility] [place] [facility] Jun 05, 2024 10:00 AM AMBULATORY [facility] MEDICINE [facility] [place] [facility] Jun 05, 2024 02:00 PM AMBULATORY [facility] MEDICINE [facility] [place] [facility] Jun 05, 2024 02:45 PM AMBULATORY - NONE [facility] [place] [facility] Jun 17, 2024 08:00 AM AMBULATORY - PSYCHIATRY [facility] [place] [facility] Jun 18, 2024 08:30 AM AM[place]ORY [place]ICINE [place] [facility] [place] [facility] Jun 18, 2024 11:00 AM AMBULATORY - PSYCHIATRY [facility] [place] [facility] Jun 26, 2024 09:00 AM AMBULATORY - MEDICINE [facility] [place] [facility] Jul 13, 2024 09:00 AM AM[place]ULATORY [place]ICINE [place] [facility] [place] [facility] Jul 22, 2024 08:30 AM AM[place]UL[place]ORY [place]ICINE [place] [facility] [place] [facility] Oct 15, 2024 10:00 AM AMBULATORY - [place]ICINE [place] [facility] [place] [facility] Active, Pending, and Scheduled Orders This section includes a listing of several types of active, pending, and scheduled orders, including clinic medications orders, diagnostic test orders, procedure orders and consult orders; where the start date of the order is 45 days before the date of the Encounter or 45 days after the date of theEncounter. The data comes from all [place] treatment [facility]. Test Date/Time Test Type Test Details Facility Name Apr 24, 2024 12:00 AM Laboratory - Chemi stry Order OCCULT BLOOD FIT X1 SCREEN(IN-HOUSE) STOOL FECES SP [place] [facility] [place] [facility] Jun 03, 2024 12:30 PM Consult Order DERMATOLOG Y/NHM (OUTPT) Cons Casino Porter's Choice [facility] Jun 18, 2024 12:00 AM Laboratory - Chemi flako Order DRUGS OF ABUSE URINE (DRUG) SP [facility] Lab Results: +/- 30 days of the [...] Range Comment Jun 05, 2024 02:23 PM [facility] CT/GC DNA PANEL(IN-HOUSE) Specimen Type: URINE Comment: Test performed on the [employer] Genexpert. A negative test results does not exclude the possibility of infection because results may be affected by improper specimen collection, concurrent antibiotic therapy, or the number of organisms in the specimen which may be below the sensitivity of the test. Ordering Provider: MAR HANSON Report Released Date/Time: Jun 05, 2024 02:02 PM Reporting Lab: [address] [address] Performing Lab: [address] [address] GC PCR NOT DETECTED Not Detected CT PCR NOT DETECTED Not Detected Jun 05, 2024 02:23 PM [facility] MICROSCOPIC AUTOMATED, URINE Specimen Type: URINE Comment: If Glucose = >500 and Ketones are positive, please alert the Physician. Ordering Provider: MAR HANSON Report Released Date/Time: Jun 05, 2024 02:02 PM Reporting Lab: [address] [address] Performing Lab: [address] [address] UA WBC 0-5 /[HPF] 0-5 UA MUCUS FEW /[LPF] Trace UA RBC 11-20 /[HPF] H 0-3 Jun 05, 2024 02:23 PM [facility] URINALYSIS CLEAN CATCH Specimen Type: URINE Comment: If Glucose = >500 and Ketones are positive, please alert the Physician. Ordering Provider: MAR HANSON Report Released Date/Time: Jun 05, 2024 02:02 PM Reporting Lab: [facility] [address] [facility] [address] Performing Lab: [facility] [address] [facility] [address] UA COLOR Light-Yellow Yellow UA APPEARANCE Clear [...] 26, 2023 10:00 AM [place]TO[place] FORMER USER [facility] Tobacco Use History This section includes a history of the smoking, or tobacco-related health factors, that were collected on or before the date of the Encounter. The data comes from the [place] facility where the Encounter took place. Date/Time Smoking Status/Tobacco Use Comment F acility Aug 26, 2023 10:00 AM [place]-TOBAC[place] QUIT 15 YRS OR MORE [facility] Apr 11, 2022 11:00 AM [place] FORMER USER [facility] Apr 11, 2022 11:00 AM [place] QUIT 15 YRS OR MORE [facility] Advance Directives: All historical and current Section [...] Sep 27, 2005 ADVANCE DIRECTIVE SHARLENE SIDHU [facility] Sep 10, 2005 ADVANCE DIRECTIVE DISCUSSION [facility] Aug 14, 2004 ADVANCE DIRECTIVE DISCUSSION [...] ABDOMEN AND PELVIS WITHOUT CONT.: ELVIN REYNA [id number] -1975 Exm Date: JUN 05, 2024@14:27 Req Phys: LORETTA HANSON Loc: CWM/NO/PACT 7 (Req'g Loc) Img Loc: [place]/CT Service: [facility] [place] [address] (Case [id number] COMPLETE) CT ABDOMEN AND PELVIS WITHOUT CON(CT Detailed) CPT:19017 Reason for Study: lower abdominal pain Clinical History: h/o kidney stone, having worsening pain Report Status: Verified Date Reported: JUN 07, 2024 Date Verified: JUN 07, 2024 Offset Plate Preparation Supervisor E-Sig: Report: CT ABDOMEN AND PELVIS [...] read-back verification. READING PHYSICIAN: Rashida Hawk MD -[phone] 06/07/2024 6:44 PST [facility] National Teleradiology Program [phone] (For Medical Practitioner Use Only) Attention Patients / Veterans: If you have questions or concerns about these test results, please contact your ordering provider or primary care team. Primary Diagnostic Code: CRITICAL ABNORMALITY Primary Interpreting Staff: RADIOLOGY,OUTSIDE SERVICE, Staff Physician / RADIOLOGY,OUTSIDE SERVICE [facility] Pathology Reports: +/- 30 days [...] 02:23 PM LR MICROBIOLOGY REPORT: Reporting Lab: [facility] [CLIA# [id number]] [address] [place] [address] Accession [UID]: [id number] [[id number]] Received: Jun 05, 2024@14:23 Collection sample: URINE CLEAN CATCH Collection date: Jun 05, 2024 14:23 Site/Specimen: URINE Provider: LORETTA HANSON Test(s) ordered: URINE CULTURE(MWROX).......... completed: Jun 08, 2024 09:02 * BACTERIOLOGY FINAL REPORT => Jun 08, 2024 09:02 TECH CODE: [id number] Bacteriology Remark(s): NO GROWTH IN 24 HOURS, FINAL REPORT TO FOLLOW. FINAL AEROBIC REPORT: NO GROWTH =--=--=--=--=--=--=--=--=--= --=--=--=--=--=--=--=--=--=- -=--=--=--=--=--=--=-- Performing Laboratory: Bacteriology Report Performed By: [facility] [CLIA# [id number]] [address] [place] [id number] CYRUS ESPINOZA [facility] Jun 02, 2024 11:29 AM LR SURGICAL PATHOLOGY REPORT: LOCAL TITLE: LR SURGICAL PATHOLOGY REPORT STANDARD TITLE: PATHOLOGY DIAGNOSTIC STUDY REPORT DATE OF NOTE: JUN 02, 2024@11:29:44 ENTRY DATE: JUN 02, 2024@11:29:44 AUTHOR: MAGDALENA STOCKTON MD EXP COSIGNER: URGENCY: STATUS: COMPLETED $APHDR Reporting Lab: [facility] [CLIA# [id number]] [address] [place] [address] - - - - - - - [...] - - - PATHOLOGY REPORT Accession No. [facility] 24 533 - - - - [...] - - - PATHOLOGY REPORT Accession No. [facility] 24 533 - - - - - - - - - - - - - - - - - - - - - - - - - - - - - - - - - - - - - - - - Gross description: [facility] 25 [id number];;1;Melinda REYNA This is a [facility] case number [facility] [id number]. Received in formalin labeled [...] lower back: Hemangioma, completely excised. CPT code 39634 /es/ MAGDALENA STOCKTON MD Board Certified Dermatopathologist Signed Jun 02, 2024@11:29 Performing Laboratory: Surgical Pathology Report Performed By: [facility] [CLIA# [id number]] [address] [place] [address] $FTR - - - - - - [...] - ELVIN REYNA JR STANDARD FORM 515 ID:[id number] SEX:M :1975 AGE: 48 LOC:CWM/NO/GS PCP: Loretta Hanson, TOLL SERVICE OBSERVER /es/ MAGDALENA STOCKTON MD Board Certified Dermatopathologist Signed: 06/02/2024 11:29 MAGDALENA STOCKTON MD [facility] Encounter Notes: All associated encounter notes This section contains the clinical notes associated to the Encounter. Date/Time Encounter Note(s) Provider Source May 15, 2024 12:00 AM NONVA CONSULT: LOCAL TITLE: COMMUNITY CARE-CONSULT RESULT NOTE STANDARD TITLE: NONVA CONSULT DATE OF NOTE: MAY 15, 2024 ENTRY DATE: JUN 10, 2024@08:53:40 AUTHOR: ALMA GARRETT EXP COSIGNER: URGENCY: STATUS: COMPLETED VistA Imaging - Scanned Document SCANNED DOCUMENT SIGNATURE NOT REQUIRED Electronically Filed: 06/10/2024 by: ALMA GARRETT INSIDE OUTSIDE SALES REPRESENTATIVE ALMA GARRETT [facility]
--- OUTSIDE RECORDS SUMMARY | 2024-07-17 16:47 | XMS_ITS | Encounter Summary ---
Author Name [facility] [place] Address [address] [facility], [place] [address] Care Team Providers Care Longwall Headgate Operator Name Role Phone LORETTA HANSON Primary [...] Gonzalez's Name Patient's Relationship to Policy Gonzalez [facility] MEDICAID [facility] Aug 05, 2021 01 [id number] ELVIN WALSH PATIENT Selected Encounter This section includes the information on record at [place] for the Encounter. Date/Time Encounter Type Encounter Description Reason Pro vider Source Jun 29, 2024 09:51 AM Outpatient Encounter PODIATRY IHE Encounter Template Text not used by [place] Plan of Treatment: Future Appointments (+ 6 [...] Date/Time Appointment Type Appointme nt Facility Name Jul 13, 2024 09:00 AM AMBULATORY - MEDICINE [facility] Jul 22, 2024 08:30 AM AMBULATORY - MEDICINE [facility] Oct 15, 2024 10:00 AM AMBULATORY - MEDICINE [facility] Active, Pending, and Scheduled Orders This section includes a listing of several types of active, pending, and scheduled orders, including clinic medications orders, diagnostic test orders, procedure orders and consult orders; where the start date of the order is 45 days before the date of the Encounter or 45 days after the date of theEncounter. The data comes from all [place] treatment facilities. Test Date/Time Test Type Test Details Facility Name Jun 03, 2024 12:30 PM Consult Order DERMATOLOGY/[facility] (OUTPT) Cons Workers Compensation Administrator's Choice [facility] Jun 18, 2024 12:00 AM Laboratory - Chemistry Order DRUGS OF ABUSE URINE (DRUG) SP [facility] Jun 30, 2024 01:22 PM Consult Order COMMUNITY CARE- PSYCHOTHERAPY Cons Workers Compensation Administrator's Choice [facility] Lab Results: +/- 30 days of the encounter This section includes the Chemistry and Hematology Lab Results on record with [place] for the patient. Radiology Reports and Pathology Reports are provided separately, in subsequent sections. Lab Results This section contains the Chemistry/Hematology Results that were resulted 30 days before or 30 daysafter the date of the Encounter. Date/Time Source Result Type Result - Unit Interpretation Reference Range Comment Jun 05, 2024 02:23 PM [facility] CT/GC DNA PANEL(IN-HOUSE) Specimen Type: URINE Comment: Test performed on the [employer] Genexpert. A negative test results does not exclude the possibility of infection because results may be affected by improper specimen collection, concurrent antibiotic therapy, or the number of organisms in the specimen which may be below the sensitivity of the test. Ordering Provider: MAR HANSON Report Released Date/Time: Jun 05, 2024 02:02 PM Reporting Lab: [facility] [address] [address] Performing Lab: [address] [address] GC PCR NOT DETECTED Not Detected CT PCR NOT DETECTED Not Detected Jun 05, 2024 02:23 PM [facility] MICROSCOPIC AUTOMATED, URINE Specimen Type: URINE Comment: If Glucose = >500 and Ketones are positive, please alert the Physician. Ordering Provider: MAR HANSON Report Released Date/Time: Jun 05, 2024 02:02 PM Reporting Lab: [address] [address] Performing Lab: [address] [address] UA WBC 0-5 /[HPF] 0-5 UA MUCUS FEW /[LPF] Trace UA RBC 11-20 /[HPF] H 0-3 Jun 05, 2024 02:23 PM [facility] URINALYSIS CLEAN CATCH Specimen Type: URINE Comment: If Glucose = >500 and Ketones are positive, please alert the Physician. Ordering Provider: MAR HANSON Report Released Date/Time: Jun 05, 2024 02:02 PM Reporting Lab: [address] [address] Performing Lab: [address] [address] UA COLOR Light-Yellow Yellow UA APPEARANCE Clear [...] and tobacco- related health factors from the [place] facility where the Encounter took place. Current Smoking Status This section includes the most current smoking, or tobacco-related health factor, from the [place] facility where the Encounter took place. Date/Time Current Smoking Status Comment Terri ity Aug 26, 2023 10:00 AM [place]-TOBACCO FORMER USER [facility] Tobacco Use History This section includes a history of the smoking, or tobacco-related health factors, that were collected on or before the date of the Encounter. The data comes from the [place] facility where the Encounter took place. Date/Time Smoking Status/Tobacco Use Comment F acility Aug 26, 2023 10:00 AM [place]-TOBACCO QUIT 15 YRS OR MORE [facility] Apr 11, 2022 11:00 AM [place]-TOBAC[place] FORMER USER [facility] Apr 11, 2022 11:00 AM [place]-TOBAC[place] QUIT 15 YRS OR MORE [facility] Advance Directives: All historical and current [...] 27, 2005 ADVANCE DIRECTIVE SHARLENE SIDHU [facility] Sep 10, 2005 ADVANCE DIRECTIVE DISCUSSION FRANCE RODRIGEZ [facility] Aug 14, 2004 ADVANCE DIRECTIVE DISCUSSION [...] the Encounter. The data comes from all [place] treatment facilities. Date/Time Radiology Report Provider Source Jun 05, 2024 02:[address] ABDOMEN AND PELVIS WITHOUT CONT.: ELVIN REYNA [id number] -1975 M Exm Date: JUN 05, 2024@14:27 Req Phys: LORETTA HANSON Loc: CWM/NO/PACT 7 (Req'g Loc) Img Loc: NHM/CT Service: Unknown [place] [facility] [place] [facility] [place] [id number] (Case [id number] COMPLETE) CT ABDOMEN AND PELVIS WITHOUT CON(CT Detailed) CPT:68126 Reason for Study: lower abdominal pain Clinical History: h/o kidney stone, having worsening pain Report Status: Verified Date Reported: JUN 07, 2024 Date Verified: JUN 07, 2024 Tool Crib Manager E-Sig: Report: CT ABDOMEN AND PELVIS WITHOUT CONT. HISTORY: lower abdominal pain COMPARISON: 11/28/2091. TECHNIQUE: CT of the abdomen and pelvis with multiplanar reformats was performed at the local [place] facility. 497 images were received by the [place] National Teleradiology Program (NTP) for interpretation. RADIATION [...] made. The result was communicated to Rodo Jean Baptisterita on 06/07/2024 at 6:41 PST with read-back verification. READING PHYSICIAN: Rashida Hawk MD -[phone] 06/07/2024 6:[address] [facility] National Teleradiology Program [phone] (For Medical Practitioner Use Only) Attention Patients / Veterans: If you have questions or concerns about these test results, please contact your ordering provider or primary care team. Primary Diagnostic Code: CRITICAL ABNORMALITY Primary Interpreting Staff: RADIOLOGY,OUTSIDE SERVICE, Staff Physician / RADIOLOGY,OUTSIDE SERVICE [facility] Pathology Reports: +/- 30 days of [...] the Encounter. The data comes from all [place] treatment facilities. Date/Time Pathology Report Provider Source Jun 05, 2024 02:23 PM LR MICROBIOLOGY REPORT: Reporting Lab: [facility] [CLIA# [id number]] [address] [place] [id number] Accession [UID]: [id number] [[id number]] Received: Jun 05, 2024@14:23 Collection sample: URINE CLEAN CATCH Collection date: Jun 05, 2024 14:23 Site/Specimen: URINE Provider: LORETTA HANSON Test(s) ordered: URINE CULTURE(MWROX).......... completed: Jun 08, 2024 09:02 * BACTERIOLOGY FINAL REPORT => Jun 08, 2024 09:02 TECH CODE: [id number] Bacteriology Remark(s): NO GROWTH IN 24 HOURS, FINAL REPORT TO FOLLOW. FINAL AEROBIC REPORT: NO GROWTH =--=--=--=--=--=--=--=--=--= --=--=--=--=--=--=--=--=--=- -=--=--=--=--=--=--=-- Performing Laboratory: Bacteriology Report Performed By: [facility] [CLIA# [id number]] [address] [place] [address] [address] [facility] [place] [facility] Jun 02, 2024 11:29 AM LR SURGICAL PATHOLOGY REPORT: LOCAL TITLE: LR SURGICAL PATHOLOGY REPORT STANDARD TITLE: PATHOLOGY DIAGNOSTIC STUDY REPORT DATE OF NOTE: JUN 02, 2024@11:29:44 ENTRY DATE: JUN 02, 2024@11:29:44 AUTHOR: MAGDALENA STOCKTON MD EXP COSIGNER: URGENCY: STATUS: COMPLETED $APHDR Reporting Lab: [facility] [CLIA# [id number]] [address] [place] [address] - - - - - - - [...] - - - PATHOLOGY REPORT Accession No. [facility] 24 533 - - - - - [...] - - - BRIEF CLINICAL HISTORY: SP [facility] Clinicl Hx: 48 year old man with [...] - - - PATHOLOGY REPORT Accession No. [facility] 24 533 - - - - - - - - - - - - - - - - - - - - - - - - - - - - - - - - - - - - - - - - Gross description: [facility] 25 [id number];;1;Melinda REYNA This is a [facility] case number [facility] 24 [id number]. Received in formalin labeled with [...] lower back: Hemangioma, completely excised. CPT code 43970 /roberto/ MAGDALENA STOCKTON MD Board Certified Dermatopathologist Signed Jun 02, 2024@11:29 Performing Laboratory: Surgical Pathology Report Performed By: [facility] [CLIA# [id number]] [address] [place] [address] $FTR - - - - - - [...] - ELVIN REYNA JR STANDARD FORM 515 ID:[id number] SEX:M :1975 AGE: 48 LOC:CWM/NO/GS PCP: Loretta Hanson NP /roberto/ MAGDALENA STOCKTON MD Board Certified Dermatopathologist Signed: 06/02/2024 11:29 MAGDALENA STOCKTON MD [facility] Encounter Notes: All associated encounter notes This section contains the clinical notes associated to the Encounter. Date/Time Encounter Note(s) Provider Source Jun 29, 2024 09:51 AM TELEPHONE ENCOUNTE R NOTE: LOCAL TITLE: TELEPHONE NOTE/SPECIALTY CLINIC STANDARD TITLE: TELEPHONE ENCOUNTER NOTE DATE OF NOTE: JUN 29, 2024@09:51 ENTRY DATE: JUN 29, 2024@09:51:17 AUTHOR: SOPHIA COVINGTON EXP COSIGNER: URGENCY: STATUS: COMPLETED TELEPHONE NOTE/SPECIALTY CLINIC Has ADDENDA called stating he alreadyhad a previous appt booked for 07/22/2024. Laotto wants to know if he needs to schedule the RTC in the computer with a PID 07/13/2024. Please advise if rtc needs to be scheduled or if the is able to keep schedule appt 07/22/2024 /roberto/ SOPHIA COVINGTON LEATHER POLISHER Signed: 06/29/2024 09:53 Receipt Acknowledged By: 06/29/2024 13:30 /es/ SOFY DENTON DPM CONSTRUCTION EQUIPMENT MECHANIC HELPER for CYNTHIA Torres CATE 06/29/2024 10:39 /es/ NINA MALDONADO Podiatry Health Investigation Division Sergeant 06/29/2024 10:02 /es/ SHELLY TURPIN LPN LICENSED PRACTICAL NURSE 06/29/2024 ADDENDUM STATUS: COMPLETED Call placed to to follow up on his recent PNA procedure. He states he is doing well-no concerns. Appointment scheduled for 07/[address] Kong's RTC order. /roberto/ NINA MALDONADO Podiatry Health Investigation Division Sergeant Signed: 06/29/2024 10:39 SOPHIA COVINGTON [facility]
--- OUTSIDE RECORDS SUMMARY | 2024-07-17 16:47 | XMS_ITS | Encounter Summary ---
Author Name [facility] [facility] [place] Organization [facility] [place] Address [address] [facility], [place] [address] Care Team Providers Care Clinical Neuropsychologist Name Role Phone LORETTA HANSON Primary Care [...] Policy Gonzalez [facility] MEDICAID [facility] Aug 05, 2021 01 [id number] ELVIN WALSH PATIENT Selected Encounter This section includes the information on record at [place] for the Encounter. Date/Time Encounter Type Encounter Description Reason Pro vider Source Jun 29, 2024 08:22 AM Outpatient Encounter PODIATRY IHE Encounter Template [...] 13, 2024 09:00 AM AMBULATORY - MEDICINE [facility] Jul 22, 2024 08:30 AM AMBULATORY - MEDICINE [facility] Oct 15, 2024 10:00 AM AMBULATORY - MEDICINE [facility] Active, [...] of theEncounter. The data comes from all [place] treatment facilities. Test Date/Time Test Type Test Details Facility Name Jun 03, 2024 12:30 PM Consult Order DERMATOLOGY/NHM (OUTPT) Cons Smasher Hand's Choice [facility] Jun 18, 2024 12:00 AM Laboratory - Chemistry Order DRUGS OF ABUSE URINE (DRUG) SP [facility] Jun 30, 2024 01:22 PM Consult Order COMMUNITY CARE- PSYCHOTHERAPY Cons Smasher Hand's Choice [facility] Lab Results: +/- 30 days of [...] Range Comment Jun 05, 2024 02:[address] [facility] CT/GC DNA PANEL(IN-HOUSE) Specimen Type: URINE Comment: Test performed on the [employer] Genexpert. A negative test results does not exclude the possibility of infection because results may be affected by improper specimen collection, concurrent antibiotic therapy, or the number of organisms in the specimen which may be below the sensitivity of the test. Ordering Provider: MAR HANSON Report Released Date/Time: Jun 05, 2024 02:02 PM Reporting Lab: [facility] [address] [address] Performing Lab: [address] [address] GC PCR NOT DETECTED Not Detected CT PCR NOT DETECTED Not Detected Jun 05, 2024 02:23 PM [facility] MICROSCOPIC AUTOMATED, URINE Specimen Type: URINE Comment: If Glucose = >500 and Ketones are positive, please alert the Physician. Ordering Provider: MAR HANSON Report Released Date/Time: Jun 05, 2024 02:02 PM Reporting Lab: [address] [address] Performing Lab: [address] [address] UA WBC 0-5 /[HPF] 0-5 UA MUCUS FEW /[LPF] Trace UA RBC 11-20 /[HPF] H 0-3 Jun 05, 2024 02:23 PM [facility] URINALYSIS CLEAN CATCH Specimen Type: URINE Comment: If Glucose = >500 and Ketones are positive, please alert the Physician. Ordering Provider: MAR HANSON Report Released Date/Time: Jun 05, 2024 02:02 PM Reporting Lab: [address] [address] Performing Lab: [address] [address] UA COLOR Light-Yellow Yellow UA APPEARANCE Clear [...] 26, 2023 10:00 AM [place]-TOBACCO FORMER USER [facility] Tobacco Use History This section includes a history of the smoking, or tobacco-related health factors, that were collected on or before the date of the Encounter. The data comes from the [place] facility where the Encounter took place. Date/Time Smoking Status/Tobacco Use Comment F acility Aug 26, 2023 10:00 AM [place]-TOBACCO QUIT 15 YRS OR MORE [facility] Apr 11, 2022 11:00 AM [place]-TOBACCO FORMER USER [facility] Apr 11, 2022 11:00 AM [place]-TOBACCO QUIT 15 YRS OR MORE [facility] Advance Directives: All historical and current [...] 2005 ADVANCE DIRECTIVE SHARLENE SIDHU [facility] Sep 10, 2005 ADVANCE DIRECTIVE DISCUSSION FRANCE RODRIGEZ [facility] Aug 14, 2004 ADVANCE DIRECTIVE DISCUSSION REGULO [...] ABDOMEN AND PELVIS WITHOUT CONT.: ELVIN REYNA [id number] -1975 M Exm Date: JUN 05, 2024@14:27 Req Phys: LORETTA HANSON Loc: CWM/NO/PACT 7 (Req'g Loc) Img Loc: NHM/CT Service: Unknown [place] [facility] CALISTA STAPLES [id number] (Case 335 COMPLETE) CT ABDOMEN AND PELVIS WITHOUT CON(CT Detailed) CPT:21940 Reason for Study: lower abdominal pain Clinical History: h/o kidney stone, having worsening pain Report Status: Verified Date Reported: JUN 07, 2024 Date Verified: JUN 07, 2024 Labor Arbitrator Hearing Office E-Sig: Report: CT ABDOMEN AND PELVIS WITHOUT [...] read-back verification. READING PHYSICIAN: Rashida Hawk MD -[phone] 06/07/2024 6:[address] [facility] National Teleradiology Program [phone] (For Medical Practitioner Use Only) Attention Patients / Veterans: If you have questions or concerns about these test results, please contact your ordering provider or primary care team. Primary Diagnostic Code: CRITICAL ABNORMALITY Primary Interpreting Staff: RADIOLOGY,OUTSIDE SERVICE, Staff Physician / RADIOLOGY,OUTSIDE SERVICE [facility] Pathology Reports: +/- 30 days of [...] 02:23 PM LR MICROBIOLOGY REPORT: Reporting Lab: [facility] [CLIA# [id number]] [address] [place] [address] Accession [UID]: [id number] [[id number]] Received: Jun 05, 2024@14:23 Collection sample: URINE CLEAN CATCH Collection date: Jun 05, 2024 14:23 Site/Specimen: URINE Provider: LORETTA HANSON Test(s) ordered: URINE CULTURE(MWROX).......... completed: Jun 08, 2024 09:02 * BACTERIOLOGY FINAL REPORT => Jun 08, 2024 09:02 TECH CODE: [id number] Bacteriology Remark(s): NO GROWTH IN 24 HOURS, FINAL REPORT TO FOLLOW. FINAL AEROBIC REPORT: NO GROWTH =--=--=--=--=--=--=--=--=--= --=--=--=--=--=--=--=--=--=- -=--=--=--=--=--=--=-- Performing Laboratory: Bacteriology Report Performed By: [facility] [CLIA# [id number]] [address] [place] [address] KARINEVELIABRYCECYRUS [facility] [place] [facility] Jun 02, 2024 11:29 AM LR SURGICAL PATHOLOGY REPORT: LOCAL TITLE: LR SURGICAL PATHOLOGY REPORT STANDARD TITLE: PATHOLOGY DIAGNOSTIC STUDY REPORT DATE OF NOTE: JUN 02, 2024@11:29:44 ENTRY DATE: JUN 02, 2024@11:29:44 AUTHOR: MAGDALENA STOCKTON MD EXP COSIGNER: URGENCY: STATUS: COMPLETED $APHDR Reporting Lab: [facility] [CLIA# [id number]] [address] [place] [address] - - - - - - - [...] - - - PATHOLOGY REPORT Accession No. [facility] 24 533 - - - [...] - - - BRIEF CLINICAL HISTORY: SP 14 Clinicl Hx: 48 year old man with [...] - - - PATHOLOGY REPORT Accession No. [facility] 24 533 - - - - - - - - - - - - - - - - - - - - - - - - - - - - - - - - - - - - - - - - Gross description: [facility] 25 [id number];;1;Melinda REYNA This is a [facility] case number [facility] 24 [id number]. Received in formalin [...] lower back: Hemangioma, completely excised. CPT code 26841 /roberto/ MAGDALENA STOCKTON MD Board Certified Dermatopathologist Signed Jun 02, 2024@11:29 Performing Laboratory: Surgical Pathology Report Performed By: [facility] [CLIA# [id number]] [address] [place] [address] $FTR - - - - - - [...] - ELVIN REYNA JR STANDARD FORM 515 ID:[id number] SEX:M :1975 AGE: 48 LOC:CWM/NO/GS PCP: Loretta Hanson, NIGHT CLERK AUDITOR /roberto/ MAGDALENA STOCKTON MD Board Certified Dermatopathologist Signed: 06/02/2024 11:29 MAGDALENA STOCKTON MD [facility] Encounter Notes: All associated encounter notes This section contains the clinical notes associated to the Encounter. Date/Time Encounter Note(s) Provider Source Jun 29, 2024 08:23 AM LETTERS: LOCAL TITLE: PATIENT LETTER (B) STANDARD TITLE: LETTERS DATE OF NOTE: JUN 29, 2024@08:23 ENTRY DATE: JUN 29, 2024@08:23:22 AUTHOR: YAQUELIN SINCLAIR EXP COSIGNER: URGENCY: STATUS: COMPLETED [facility] Toll Free Number ext [phone] [facility] scheduling can be reached at ext. [phone] [facility]- ext. [phone] [facility]- ext. [phone] [facility]- ext. [phone] JUN 29, 2024 ELVIN REYNA [address] [address] Dear ELVIN REYNA JR Thank you for choosing the [facility] of [facility] ([place]) [facility] as your primary choice for health care. As a partner in your health care, we are contacting you in writing since we have been unsuccessful in our attempts to reach you to date. We want to assure you we are doing everything possible to schedule Veterans for their [place] medical care appointments. Our records indicate you are due for an appointment in PODIATRY CLINIC. If you would like to be seen, please contact [facility] at ext. [phone] to schedule an appointment. Thank you for your service to our nation, and we look forward to hearing from you soon. Sincerely, [facility] [address] [facility] [address] [place] [address] [place] [address] ext [phone] [facility] [address] [facility] [address] [place] [address] [place] [address] ext. [phone] [facility] [address] [address] [place] [address] ext. [phone] [facility] [address] [place] [address] ext. [phone] YAQUELIN SINCLAIR [place] [facility] [place] [facility] Jun 29, 2024 08:22 AM ADMINISTRATIVE NOT E: LOCAL TITLE: ADMINISTRATIVE RECALL NOTE STANDARD TITLE: ADMINISTRATIVE NOTE DATE OF NOTE: JUN 29, 2024@08:22 ENTRY DATE: JUN 29, 2024@08:22:48 AUTHOR: YAQUELIN SINCLAIR EXP COSIGNER: URGENCY: STATUS: COMPLETED RTC orders: Unable to contact patient: Attempts to contact: 1st attempt: Left voicemail 2nd attempt: Letter mailedDisposition onTx 3rd attempt: 4th attempt: /roberto/ YAQUELIN SINCLAIR ADVANCED RETAIL BRAND AMBASSADOR Signed: 06/29/2024 08:23 YAQUELIN SINCLAIR [facility]
--- OUTSIDE RECORDS SUMMARY | 2024-07-17 16:47 | XMS_ITS ---
Author Name [facility] [place] Address [address] [facility], [place] [address] Care Team Providers Care Tactical Air Control Party Manager Name Role Phone LORETTA HANSON Primary [...] Gonzalez's Name Patient's Relationship to Policy Gonzalez [facility] MEDICAID [facility] Aug 05, 2021 01 [id number] ELVIN WALSH PATIENT Selected Encounter This section includes the information on record at [place] for the Encounter. Date/Time Encounter Type Encounter Description Reason Pro vider Source Jun 30, 2024 12:10 PM Outpatient Encounter COMMUNITY CARE CONSULT IHE [...] 13, 2024 09:00 AM AMBULATORY - [facility] Jul 22, 2024 08:30 AM AMBULATORY - MEDICINE [facility] NTRL TRN [facility] Oct 15, 2024 10:00 AM [facility] Active, Pending, and Scheduled Orders This [...] data comes from all [place] treatment facilities. Test Date/Time Test Type Test Details Facility Name Jun 03, 2024 12:30 PM Consult Order DERMATOLOGY/NHM (OUTPT) Cons Experience Planning [facility] Choice [facility] Jun 18, 2024 12:00 AM Laboratory - Chemistry Order DRUGS OF ABUSE URINE (DRUG) SP [facility] Jun 30, 2024 01:22 PM Consult Order COMMUNITY CARE- PSYCHOTHERAPY Cons Experience Planning Strategist's Choice [facility] Lab Results: +/- 30 days of the [...] Range Comment Jun 05, 2024 02:23 PM [facility] MICROSCOPIC AUTOMATED, URINE Specimen Type: URINE Comment: If Glucose = >500 and Ketones are positive, please alert the Physician. Ordering Provider: MAR HANSON Report Released Date/Time: Jun 05, 2024 02:02 PM Reporting Lab: [facility] [address] [facility] [address] Performing Lab: [address] [address] UA WBC 0-5 /[HPF] 0-5 UA MUCUS FEW /[LPF] Trace UA RBC 11-20 /[HPF] H 0-3 Jun 05, 2024 02:[address] [facility] CT/GC DNA PANEL(IN-HOUSE) Specimen Type: URINE Comment: Test performed on the [employer] Genexpert. A negative test results does not exclude the possibility of infection because results may be affected by improper specimen collection, concurrent antibiotic therapy, or the number of organisms in the specimen which may be below the sensitivity of the test. Ordering Provider: MAR HANSON Report Released Date/Time: Jun 05, 2024 02:02 PM Reporting Lab: [address] [address] Performing Lab: [address] [address] GC PCR NOT DETECTED Not Detected CT PCR NOT DETECTED Not Detected Jun 05, 2024 02:23 PM [facility] URINALYSIS CLEAN CATCH Specimen Type: URINE Comment: If Glucose = >500 and Ketones are positive, please alert the Physician. Ordering Provider: MAR HANSON Report Released Date/Time: Jun 05, 2024 02:02 PM Reporting Lab: [address] [address] Performing Lab: [address] [address] UA COLOR Light-Yellow Yellow UA APPEARANCE Clear [...] 26, 2023 10:00 AM [place]-TOBACCO FORMER USER [facility] Tobacco Use History This section includes a history of the smoking, or tobacco-related health factors, that were collected on or before the date of the Encounter. The data comes from the [place] facility where the Encounter took place. Date/Time Smoking Status/Tobacco Use Comment F acility Aug 26, 2023 10:00 AM [place]-TOBACCO QUIT 15 YRS OR MORE [facility] Apr 11, 2022 11:00 AM [place]-TOBAC[place] FORMER USER [facility] Apr 11, 2022 11:00 AM [place]TO[place] QUIT 15 YRS OR MORE [facility] Advance Directives: All historical and current Section [...] ABDOMEN AND PELVIS WITHOUT CONT.: ELVIN REYNA [id number] -1975 M Exm Date: JUN 05, 2024@14:27 Req Phys: LORETTA HANSON Loc: CWM/NO/PACT 7 (Req'g Loc) Img Loc: NHM/CT Service: Unknown [place] [facility] CALISTA STAPLES [id number] (Case 335 COMPLETE) CT ABDOMEN AND PELVIS WITHOUT CON(CT Detailed) CPT:31047 Reason for Study: lower abdominal pain Clinical History: h/o kidney stone, having worsening pain Report Status: Verified Date Reported: JUN 07, 2024 Date Verified: JUN 07, 2024 Director Underwriter Sales E-Sig: Report: CT ABDOMEN AND PELVIS WITHOUT [...] read-back verification. READING PHYSICIAN: Rashida Hawk MD -[id number] 06/07/2024 6:44 PST [facility] National Teleradiology Program [phone] (For Medical Practitioner Use Only) Attention Patients / Veterans: If you have questions or concerns about these test results, please contact your ordering provider or primary care team. Primary Diagnostic Code: CRITICAL ABNORMALITY Primary Interpreting Staff: RADIOLOGY,OUTSIDE SERVICE, Staff Physician / RADIOLOGY,OUTSIDE SERVICE [facility] Pathology Reports: +/- 30 days of the [...] 02:23 PM LR MICROBIOLOGY REPORT: Reporting Lab: [facility] [CLIA# [id number]] [address] [place] [address] Accession [UID]: [id number] [[id number]] Received: Jun 05, 2024@14:23 Collection sample: URINE CLEAN CATCH Collection date: Jun 05, 2024 14:23 Site/Specimen: URINE Provider: LORETTA HANSON Test(s) ordered: URINE CULTURE(MWROX).......... completed: Jun 08, 2024 09:02 * BACTERIOLOGY FINAL REPORT => Jun 08, 2024 09:02 TECH CODE: [id number] Bacteriology Remark(s): NO GROWTH IN 24 HOURS, FINAL REPORT TO FOLLOW. FINAL AEROBIC REPORT: NO GROWTH =--=--=--=--=--=--=--=--=--= --=--=--=--=--=--=--=--=--=- -=--=--=--=--=--=--=-- Performing Laboratory: Bacteriology Report Performed By: [facility] [CLIA# [id number]] [address] [place] [address] KARINEVELIABRYCECYRUS [facility] [place] [facility] Jun 02, 2024 11:29 AM LR SURGICAL PATHOLOGY REPORT: LOCAL TITLE: LR SURGICAL PATHOLOGY REPORT STANDARD TITLE: PATHOLOGY DIAGNOSTIC STUDY REPORT DATE OF NOTE: JUN 02, 2024@11:29:44 ENTRY DATE: JUN 02, 2024@11:29:44 AUTHOR: MAGDALENA STOCKTON MD EXP COSIGNER: URGENCY: STATUS: COMPLETED $APHDR Reporting Lab: [facility] [CLIA# [id number]] [address] [place] [address] - - - - - - - [...] - - - PATHOLOGY REPORT Accession No. [facility] 24 533 - - - - - [...] - - - BRIEF CLINICAL HISTORY: SP 77 Clinicl Hx: 48 year old man with [...] - - - PATHOLOGY REPORT Accession No. [facility] 24 533 - - - - - - - - - - - - - - - - - - - - - - - - - - - - - - - - - - - - - - - - Gross description: [facility] 25 [id number];;1;Melinda REYNA This is a [facility] case number [facility] 24 [id number]. Received in formalin labeled with [...] lower back: Hemangioma, completely excised. CPT code 14636 /roberto/ MAGDALENA STOCKTON MD Board Certified Dermatopathologist Signed Jun 02, 2024@11:29 Performing Laboratory: Surgical Pathology Report Performed By: [facility] [CLIA# [id number]] [address] [place] [address] $FTR - - - - - - [...] - ELVIN REYNA JR STANDARD FORM 515 ID:[id number] SEX:M :1975 AGE: 48 LOC:CWM/NO/GS PCP: Loretta Hanson, RACING CAR DRIVER /roberto/ MAGDALENA STOCKTON MD Board Certified Dermatopathologist Signed: 06/02/2024 11:29 MAGDALENA STOCKTON MD [facility] Encounter Notes: All associated encounter notes This section contains the clinical notes associated to the Encounter. Date/Time Encounter Note(s) Provider Source Jun 30, 2024 01:22 PM ADDENDUM: LOCAL TITLE: Addendum STANDARD TITLE: ADDENDUM DATE OF NOTE: JUN 30, 2024@13:22:18 ENTRY DATE: JUN 30, 2024@13:22:19 AUTHOR: TERENCE HUERTA EXP COSIGNER: URGENCY: STATUS: COMPLETED consult entered per above request. /amanda HUERTA RN REGISTERED NURSE Signed: 06/30/2024 13:22 Receipt Acknowledged By: 06/30/2024 14:10 /roberto/ MARIANNA CRANDALL, PHD CLINICAL PSYCHOLOGIST === --- Original Document --- 06/30/24 ADMINISTRATIVE NOTE: CC Provider contacted CC requesting a new auth/referral for continuation of care. Please a new referral for CC-Bh psychotherapy for the following CC Vendor: [employer] [address] [place] [address]. [address] Tax ID: [id number] /roberto/ DAWNA BREWER Signed: 06/30/2024 12:11 Receipt Acknowledged By: 06/30/2024 13:23 /amanda HUERTA RN REGISTERED NURSE TERENCE HUERTA [facility] Jun 30, 2024 12:10 PM ADMINISTRATIVE NOTE: LOCAL TITLE: ADMINISTRATIVE NOTE STANDARD TITLE: ADMINISTRATIVE NOTE DATE OF NOTE: JUN 30, 2024@12:10 ENTRY DATE: JUN 30, 2024@12:10:51 AUTHOR: DAWNA BREWER EXP COSIGNER: URGENCY: STATUS: COMPLETED ADMINISTRATIVE NOTE Has ADDENDA CC Provider contacted CC requesting a new auth/referral for continuation of care. Please a new referral for CC-Bh psychotherapy for the following CC Vendor: [employer] [address] [place] [address]. [address] Tax ID: [id number] /roberto/ DAWNA BREWER Signed: 06/30/2024 12:11 Receipt Acknowledged By: 06/30/2024 13:23 /roberto/ TERENCE HUERTA RN REGISTERED NURSE 06/30/2024 ADDENDUM STATUS: COMPLETED consult entered per above request. /amanda HUERTA RN REGISTERED NURSE Signed: 06/30/2024 13:22 Receipt Acknowledged By: * AWAITING SIGNATURE * MARIANNA CRANDALL [facility]
--- OUTSIDE RECORDS SUMMARY | 2024-07-17 16:47 | XMS_ITS | Encounter Summary ---
Author Name [facility] [place] Organization [facility] Address [address] [place] [address] Care Team Providers Care Electrical Solderer Name Role Phone LORETTA HANSON Primary Care [...] [place] [facility] Aug 05, 2021 01 [id number] ELVIN WALSH PATIENT Selected Encounter This section [...] Sep 27, 2005 ADVANCE DIRECTIVE SHARLENE SIDHU [facility] Sep 10, 2005 ADVANCE DIRECTIVE DISCUSSION FRANCE RODRIGEZ [facility] Aug 14, 2004 ADVANCE DIRECTIVE DISCUSSION [facility]
--- OUTSIDE RECORDS SUMMARY | 2024-07-17 16:47 | XMS_ITS | Encounter Summary ---
Author Name [facility] [place] [facility] [place] [facility] [facility] [place] Address [address], [place] [address] Care Team Providers Care Per Diem Physical Therapist Assistant Name Role Phone LORETTA HANSON Primary [...] Gonzalez's Name Patient's Relationship to Policy Gonzalez [facility] Aug 05, 2021 01 [id number] ELVIN WALSH PATIENT Selected Encounter This section includes the information on record at [place] for the Encounter. Date/Time Encounter Type Encounter Description Reason Pro vider Source Jun 26, 2024 03:19 PM Outpatient Encounter COMMUNITY CARE CONSULT [facility] [...] 13, 2024 09:00 AM AMBULATORY - MEDICINE [facility] Jul 22, 2024 08:30 AM AMBULATORY - MEDICINE [facility] Oct 15, 2024 10:00 AM AMBULATORY - MEDICINE [facility] Active, Pending, and Scheduled Orders This section includes a listing of several types of active, pending, and scheduled orders, including clinic medications orders, diagnostic test orders, procedure orders and consult orders; where the start date of the order is 45 days before the date of the Encounter or 45 days after the date of theEncounter. The data comes from all [place] treatment facilities. Test Date/Time Test Type Test Details Facility Name Jun 03, 2024 12:30 PM Consult Order DERMATOLOGY/[facility] (OUTPT) [facility] Jun 18, 2024 12:00 AM Laboratory - Chemistry Order DRUGS OF ABUSE URINE (DRUG) SP [facility] Jun 30, 2024 01:22 PM Consult Order COMMUNITY CARE- PSYCHOTHERAPY [facility] Lab Results: +/- 30 days of [...] Range Comment Jun 05, 2024 02:[address] [facility] CT/GC DNA PANEL(IN-HOUSE) Specimen Type: URINE Comment: Test performed on the Superfocus Genexpert. A negative test results does not exclude the possibility of infection because results may be affected by improper specimen collection, concurrent antibiotic therapy, or the number of organisms in the specimen which may be below the sensitivity of the test. Ordering Provider: MAR HANSON Report Released Date/Time: Jun 05, 2024 02:02 PM Reporting Lab: [facility] [address] [address] Performing Lab: [address] [address] GC PCR NOT DETECTED Not Detected CT PCR NOT DETECTED Not Detected Jun 05, 2024 02:23 PM [facility] MICROSCOPIC AUTOMATED, URINE Specimen Type: URINE Comment: If Glucose = >500 and Ketones are positive, please alert the Physician. Ordering Provider: MAR HANSON Report Released Date/Time: Jun 05, 2024 02:02 PM Reporting Lab: [address] [address] Performing Lab: [address] [address] UA WBC 0-5 /[HPF] 0-5 UA MUCUS FEW /[LPF] Trace UA RBC 11-20 /[HPF] H 0-3 Jun 05, 2024 02:23 PM [facility] URINALYSIS CLEAN CATCH Specimen Type: URINE Comment: If Glucose = >500 and Ketones are positive, please alert the Physician. Ordering Provider: MAR HANSON Report Released Date/Time: Jun 05, 2024 02:02 PM Reporting Lab: [address] [address] Performing Lab: [address] [address] UA COLOR Light-Yellow Yellow UA APPEARANCE Clear [...] Height Weight Body Mass Index Source Jun 26, 2024 09:06 AM 98.4 80 126/82 18 96 1 [facility] Social History: Smoking Status [...] 26, 2023 10:00 AM [place]-TOBACCO FORMER USER [facility] Tobacco Use History This section includes a history of the smoking, or tobacco-related health factors, that were collected on or before the date of the Encounter. The data comes from the [place] facility where the Encounter took place. Date/Time Smoking Status/Tobacco Use Comment F acility Aug 26, 2023 10:00 AM [place]-TOBAC[place] QUIT 15 YRS OR MORE [facility] Apr 11, 2022 11:00 AM VA-TOBACCO FORMER USER [facility] Apr 11, 2022 11:00 AM [place]-TO[place]AC[place] QUIT 15 YRS OR MORE [facility] Advance Directives: All historical and current [...] 2005 ADVANCE DIRECTIVE SHARLENE SIDHU [facility] Sep 10, 2005 ADVANCE DIRECTIVE DISCUSSION FRANCE RODRIGEZ [facility] Aug 14, 2004 ADVANCE DIRECTIVE DISCUSSION [...] ABDOMEN AND PELVIS WITHOUT CONT.: ELVIN REYNA [id number] -1975 M Exm Date: JUN 05, 2024@14:27 Req Phys: LORETTA HANSON Loc: CWM/NO/PACT 7 (Req'g Loc) Img Loc: [facility]/CT Service: Unknown [place] [facility] [place] [address] (Case [id number] COMPLETE) CT ABDOMEN AND PELVIS WITHOUT CON(CT Detailed) CPT:84691 Reason for Study: lower abdominal pain Clinical History: h/o kidney stone, having worsening pain Report Status: Verified Date Reported: JUN 07, 2024 Date Verified: JUN 07, 2024 Wood Gouger E-Sig: Report: CT ABDOMEN AND PELVIS WITHOUT [...] read-back verification. READING PHYSICIAN: Rashida Hawk MD -[phone] 06/07/2024 6:44 PST [facility] National Teleradiology Program [phone] (For Medical Practitioner Use Only) Attention Patients / Veterans: If you have questions or concerns about these test results, please contact your ordering provider or primary care team. Primary Diagnostic Code: CRITICAL ABNORMALITY Primary Interpreting Staff: RADIOLOGY,OUTSIDE SERVICE, Staff Physician / RADIOLOGY,OUTSIDE SERVICE [facility] Pathology Reports: +/- 30 days of [...] 02:23 PM LR MICROBIOLOGY REPORT: Reporting Lab: [facility] [CLIA# [id number]] [address] [place] [id number] Accession [UID]: [id number] [[id number]] Received: Jun 05, 2024@14:23 Collection sample: URINE CLEAN CATCH Collection date: Jun 05, 2024 14:23 Site/Specimen: URINE Provider: LORETTA HANSON Test(s) ordered: URINE CULTURE(MWROX).......... completed: Jun 08, 2024 09:02 * BACTERIOLOGY FINAL REPORT => Jun 08, 2024 09:02 TECH CODE: [id number] Bacteriology Remark(s): NO GROWTH IN 24 HOURS, FINAL REPORT TO FOLLOW. FINAL AEROBIC REPORT: NO GROWTH =--=--=--=--=--=--=--=--=--= --=--=--=--=--=--=--=--=--=- -=--=--=--=--=--=--=-- Performing Laboratory: Bacteriology Report Performed By: [facility] [CLIA# [id number]] [address] [place] [address] CYRUS ESPINOZA [facility] Jun 02, 2024 11:29 AM LR SURGICAL PATHOLOGY REPORT: LOCAL TITLE: LR SURGICAL PATHOLOGY REPORT STANDARD TITLE: PATHOLOGY DIAGNOSTIC STUDY REPORT DATE OF NOTE: JUN 02, 2024@11:29:44 ENTRY DATE: JUN 02, 2024@11:29:44 AUTHOR: MAGDALENA STOCKTON MD EXP COSIGNER: URGENCY: STATUS: COMPLETED $APHDR Reporting Lab: [facility] [CLIA# [id number]] [address] [place] [address] - - - - - - - [...] - - - PATHOLOGY REPORT Accession No. [facility] 24 533 - - - [...] - - - - - PREOPERATIVE DIAGNOSIS: nEW, EXOPHYTIC, BOTHERSOME SKIN LESION MIDLINE LOWER [...] - - - PATHOLOGY REPORT Accession No. [facility] 24 533 - - - - - - - - - - - - - - - - - - - - - - - - - - - - - - - - - - - - - - - - Gross description: [facility] 15 [id number];;1;Melinda REYNA This is a [facility] case number [facility] [id number]. Received in formalin [...] lower back: Hemangioma, completely excised. CPT code 77985 /roberto/ MAGDALENA STOCKTON MD Board Certified Dermatopathologist Signed Jun 02, 2024@11:29 Performing Laboratory: Surgical Pathology Report Performed By: [facility] [CLIA# [id number]] [address] [place] [address] $FTR - - - - - - [...] - ELVIN REYNA JR STANDARD FORM 515 ID:[id number] SEX:M :1975 AGE: 48 LOC:CWM/NO/GS PCP: Loretta Hanson NP /roberto/ MAGDALENA STOCKTON MD Board Certified Dermatopathologist Signed: 06/02/2024 11:29 MAGDALENA STOCKTON MD [facility] Encounter Notes: All associated encounter notes This section contains the clinical notes associated to the Encounter. Date/Time Encounter Note(s) Provider Source Jun 26, 2024 03:19 PM NONVA NOTE: LOCAL TITLE: [facility] COORD PLAN STANDARD TITLE: NONVA NOTE DATE OF NOTE: JUN 26, 2024@15:19 ENTRY DATE: JUN 26, 2024@15:19:34 AUTHOR: MARY DALEY COSIGNER: URGENCY: STATUS: COMPLETED Emergency Notification Intake Date Presenting to the Facility: May Method of Contact: Notified from ECR worklist Notification ID: [id number] [facility] Referral #: [id number] [facility] Name: Hospital: [facility] Address: City: [place]: [place] Zip Code: Phone : Community Facility Point of Contact: Name: Phone: Chief complaint: POSSIBLE INFECTION DUE TO KIDNEY STONES Primary Diagnosis: Disposition Discharged Date of discharge: May Discharge to Comment: ER Only /roberto/ MARY CENTENO Signed: 06/26/2024 15:22 Receipt Acknowledged By: * AWAITING SIGNATURE * DOUGLAS BENTLEY * AWAITING SIGNATURE * DILSHAD SULTANA * AWAITING SIGNATURE * KATERINE BLANTON * AWAITING SIGNATURE * INGRID EDMONDS DAWN [employer]
--- OUTSIDE RECORDS SUMMARY | 2024-07-17 16:47 | XMS_ITS ---
Author Name [facility] [place] Organization [facility] [place] [facility] [place] Address [address] [place] [address] Care Team Providers Care Bid Clerk Name Role Phone LORETTA HANSON Primary Care [...] Policy Gonzalez [facility] MEDICAID [facility] Aug 05, 2021 01 [id number] ELVIN WALSH PATIENT Selected Encounter This section includes the information on record at [place] for the Encounter. Date/Time Encounter Type Encounter Description Reason Provider Source Jun 26, 2024 09:00 AM OFFICE O/P EST MOD 30 MIN PODIATRY ICD-10-CM L60.0 Ingrowing CYNTHIA Pfeiffer Zahra Encounter Template Text not used by [place] Assessments - Encounter Diagnoses This section includes the primary and secondary diagnoses documented for the Encounter. Date/Time Primary/Secondary Diagnosis Diagnosis Name Provider Source Jun 26, 2024 02:46 PM PRIMARY Ingrowing CYNTHIA Pfeiffer [facility] Plan of Treatment: Future Appointments (+ 6 months) and Future Tests (+/- 45 days) The Plan of Treatment section includes future care activities for the patient from all [place] [facility]. This section includes future appointments and future orders which are active, pending or scheduled. Future Appointments This section includes appointments that were scheduled to occur 6 months from the date of the Encounter, up to a maximum of 20 appointments. The data comes from all [facility] facilities. Appointment Date/Time Appointment Type Appointme nt Facility Name Jul 13, 2024 09:00 AM AMBULATORY - MEDICINE [facility] Jul 22, 2024 08:30 AM AMBULATORY MEDICINE [facility] Oct 15, 2024 10:00 AM AMBULATORY MEDICINE [facility] Active, Pending, and Scheduled Orders This [...] 12:30 PM Consult Order DERMATOLOGY/[facility] (OUTPT) Cons Flavor Extractor's Choice [facility] Jun 18, 2024 12:00 AM Laboratory - Chemistry Order DRUGS OF ABUSE URINE (DRUG) SP [facility] Jun 30, 2024 01:22 PM Consult Order COMMUNITY CARE- PSYCHOTHERAPY Cons Flavor Extractor's Choice [facility] Lab Results: +/- 30 days of the encounter This section includes the Chemistry and Hematology Lab Results on record with [place] for the patient. Radiology Reports and Pathology Reports are provided separately, in subsequent sections. Lab Results This section contains the Chemistry/Hematology Results that were resulted 30 days before or 30 daysafter the date of the Encounter. Date/Time Source Result Type Result - Unit Interpretation Reference Range Comment Jun 05, 2024 02:23 [address] [facility] CT/GC DNA PANEL(IN-HOUSE) Specimen Type: URINE Comment: Test performed on the [employer] Genexpert. A negative test results does not exclude the possibility of infection because results may be affected by improper specimen collection, concurrent antibiotic therapy, or the number of organisms in the specimen which may be below the sensitivity of the test. Ordering Provider: MAR HANSON Report Released Date/Time: Jun 05, 2024 02:02 PM Reporting Lab: [address] [address] Performing Lab: [address] [address] GC PCR NOT DETECTED Not Detected CT PCR NOT DETECTED Not Detected Jun 05, 2024 02:23 PM [facility] MICROSCOPIC AUTOMATED, URINE Specimen Type: URINE Comment: If Glucose = >500 and Ketones are positive, please alert the Physician. Ordering Provider: MAR HANSON Report Released Date/Time: Jun 05, 2024 02:02 PM Reporting Lab: [address] [address] Performing Lab: [address] [address] UA WBC 0-5 /[HPF] 0-5 UA MUCUS FEW /[LPF] Trace UA RBC 11-20 /[HPF] H 0-3 Jun 05, 2024 02:23 PM [facility] URINALYSIS CLEAN CATCH Specimen Type: URINE Comment: If Glucose = >500 and Ketones are positive, please alert the Physician. Ordering Provider: MAR HANSON Report Released Date/Time: Jun 05, 2024 02:02 PM Reporting Lab: [address] [address] Performing Lab: [address] [address] UA COLOR Light-Yellow Yellow UA APPEARANCE Clear [...] AM 98.4 80 126/82 18 96 1 [facility] Social History: Smoking Status (Most current) and Tobacco Use (All prior to encounter date) This section includes the most current, and the historical, smoking and tobacco- related health factors from the [place] facility where the Encounter took place. Current Smoking Status This section includes the most current smoking, or tobacco-related health factor, from the [place] facility where the Encounter took place. Date/Time Current Smoking Status Comment Facil ity Aug 26, 2023 10:00 AM [place]-TOBACCO FORMER USER [facility] Tobacco Use History This section includes a history of the smoking, or tobacco-related health factors, that were collected on or before the date of the Encounter. The data comes from the [place] facility where the Encounter took place. Date/Time Smoking Status/Tobacco Use Comment F acility Aug 26, 2023 10:00 AM [place]-TOBACCO QUIT 15 YRS OR MORE [facility] Apr 11, 2022 11:00 AM [place]-TOBACCO FOR[facility] USER [facility] Apr 11, 2022 11:00 AM [place]-TOBACCO QUIT 15 YRS OR MORE [facility] Advance Directives: All historical and current Section Date Range: From patient's date of to the date document was created. This section includes ALL of a patient's completed or amended [place] Advance and Rescinded Directives. The entries below indicate that a directive exists for the patient, but an actual copy is not included with this document. The data comes from all [place] facilities. Date Advance Directives Provider Source May 16, 2011 ADVANCE DIRECTIVE DISCUSSION TON SARAVIA Sep 27, 2005 ADVANCE DIRECTIVE SHARLENE SIDHU [facility] Sep 10, 2005 ADVANCE DIRECTIVE DISCUSSION FRANCE RODRIGEZ [facility] Aug 14, 2004 ADVANCE DIRECTIVE DISCUSSION [facility] [place] Radiology Reports: +/- 30 [...] the Encounter. The data comes from all [place] treatment facilities. Date/Time Radiology Report Provider Source Jun 05, 2024 02:[address] ABDOMEN AND PELVIS WITHOUT CONT.: ELVIN REYNA [id number] -1975 M Exm Date: JUN 05, 2024@14:27 Req Phys: LORETTA HANSON Loc: CWM/NO/PACT 7 (Req'g Loc) Img Loc: NHM/CT Service: [place] [address] (Case [id number] COMPLETE) CT ABDOMEN AND PELVIS WITHOUT CON(CT Detailed) CPT:02927 Reason for Study: lower abdominal pain Clinical History: h/o kidney stone, having worsening pain Report Status: Verified Date Reported: JUN 07, 2024 Date Verified: JUN 07, 2024 Hvac Controls Technician E-Sig: Report: CT ABDOMEN AND PELVIS WITHOUT CONT. HISTORY: lower abdominal pain COMPARISON: 11/28/2091. TECHNIQUE: CT of the abdomen and pelvis with multiplanar reformats was performed at the local [place] facility. 497 images were received by the [place] National Teleradiology Program (NTP) for interpretation. RADIATION [...] read-back verification. READING PHYSICIAN: Rashida Hawk MD -[phone] 06/07/2024 6:44 PST [facility] National Teleradiology Program [phone] (For Medical Practitioner Use Only) Attention Patients / Veterans: If you have questions or concerns about these test results, please contact your ordering provider or primary care team. Primary Diagnostic Code: CRITICAL ABNORMALITY Primary Interpreting Staff: RADIOLOGY,OUTSIDE SERVICE, Staff Physician / RADIOLOGY,OUTSIDE SERVICE [facility] Pathology Reports: +/- 30 days of [...] the Encounter. The data comes from all [place] treatment facilities. Date/Time Pathology Report Provider Source Jun 05, 2024 02:23 PM LR MICROBIOLOGY REPORT: Reporting Lab: [facility] [CLIA# [id number]] [address] [place] [phone] Accession [UID]: [id number] [[id number]] Received: Jun 05, 2024@14:23 Collection sample: URINE CLEAN CATCH Collection date: Jun 05, 2024 14:23 Site/Specimen: URINE Provider: LORETTA HANSON Test(s) ordered: URINE CULTURE(MWROX).......... completed: Jun 08, 2024 09:02 * BACTERIOLOGY FINAL REPORT => Jun 08, 2024 09:02 TECH CODE: [id number] Bacteriology Remark(s): NO GROWTH IN 24 HOURS, FINAL REPORT TO FOLLOW. FINAL AEROBIC REPORT: NO GROWTH =--=--=--=--=--=--=--=--=--= --=--=--=--=--=--=--=--=--=- -=--=--=--=--=--=--=-- Performing Laboratory: Bacteriology Report Performed By: [facility] [CLIA# [id number]] [address] [place] [id number] CYRUS ESPINOZA [facility] Jun 02, 2024 11:29 AM LR SURGICAL PATHOLOGY REPORT: LOCAL TITLE: LR SURGICAL PATHOLOGY REPORT STANDARD TITLE: PATHOLOGY DIAGNOSTIC STUDY REPORT DATE OF NOTE: JUN 02, 2024@11:29:44 ENTRY DATE: JUN 02, 2024@11:29:44 AUTHOR: MAGDALENA STOCKTON MD EXP COSIGNER: URGENCY: STATUS: COMPLETED $APHDR Reporting Lab: [facility] [CLIA# [id number]] [address] [place] [phone] - - - - - - - [...] - - - PATHOLOGY REPORT Accession No. [facility] [id number] - - - - - [...] - - - - PREOPERATIVE DIAGNOSIS: HEIDI 24 533 nEW, EXOPHYTIC, BOTHERSOME SKIN LESION [...] - - - - PATHOLOGY REPORT Accession NoMaki NDIAYE 24 [id number] - - - - - - - - - - - - - - - - - - - - - - - - - - - - - - - - - - - - - - - - Gross description: [facility] [id number];;1;Melinda REYNA This is a [facility] case number SPATH [id number]. Received in [...] lower back: Hemangioma, completely excised. CPT code 10017 /roberto/ MAGDALENA STOCKTON MD Board Certified Dermatopathologist Signed Jun 02, 2024@11:29 Performing Laboratory: Surgical Pathology Report Performed By: [facility] [CLIA# [id number]] [address] [place] [phone] $FTR - - - - - - [...] - ELVIN REYNA JR STANDARD FORM 515 ID:[id number] SEX:M :1975 AGE: 48 LOC:CWM/NO/GS PCP: Loretta Hanson NP /roberto/ MAGDALENA STOCKTON MD Board Certified Dermatopathologist Signed: 06/02/2024 11:29 MAGDALENA STOCKTON MD [facility] Encounter Notes: All associated encounter notes This section contains the clinical notes associated to the Encounter. 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 Active problems - Computerized Problem List is the source for the followin. Gallbladder polyp 2. Pain in right arm 3. 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 Sleep apnea 6. Overweight 7. GERD - Gastro-Esophageal Reflux Disease ([facility] [id number]) 8. Anxiety ([facility] [id number]) 9. Hyperlipidemia ([facility] [id number]) 10. Fatty liver 11. Family history of diabetes mellitus Patient has answered NKA Active Outpatient Medications (including Supplies): Active Outpatient Medications Status 1) AZELASTINE 137MCG/SPRAY 200D NASAL INHL SPRAY 1 SPRAY ACTIVE INTO EACH NOSTRIL ONCE DAILY FOR SEASONAL RUNNY NOSE 2) DM 10/GUAIFENESN 100MG/5ML (AF & SF) LIQ TAKE 5 MLS ACTIVE BY MOUTH EVERY 6 HOURS NEEDED FOR COUGH 3) OMEPRAZOLE 20MG EC CAP TAKE ONE CAPSULE BY MOUTH ONCE ACTIVE DAILY Active Non-VA Medications Status 1) Non-VA OTHER CAP/TAB RACHANA WORKZ MUSHROOM COMPLEX BY ACTIVE MOUTH ONCE DAILY 2) Non-VA PROBIOTIC (CULTURELLE DIGESTIVE DAILY) CAP/TAB ACTIVE BY MOUTH 5 Total Medications Include data from 06/27/2023 to 06/26/2024 06/26/2024 09:23 CONFIDENTIAL IMAGING REPORTS SUMMARY pg. 1 ELVIN REYNA JR [id number] : 1975 II - Imaging Impression (max 1 occurrence) Date Procedure CPT Status Case # 06/05/2024 CT ABDOMEN AND PELVIS WITHOUT [id number] Verified 335 CONT. 1. 7 mm calculus at the right [...] read-back verification. READING PHYSICIAN: Rashida Hawk MD -[phone] 06/07/2024 6:44 PST [facility] National Teleradiology Program [phone] (For Medical Practitioner Use Only) Attention Patients / Veterans: If you have questions or concerns about these test results, please contact your ordering provider or primary care team. Physical exam: Date Vital Measurement Qualifiers 06/26/2024 09:06 Temp F (C) 98.4 (36.9) Pulse 80 Respir 18 BP 126/82 Pain 1 POx (L/Min)(%) 96 At Rest Procedure: Informed consent-today which included full description of the procedure with the attendant risks and benefits of the procedure were fully discussed with the patient, pre and postoperative anesthesia and pain control, expected outcomes and improvements, as well as possible risks. After having all of this explained in detail to the patient with his full understanding patient consented freely to the procedure below. Possible complications were also discussed including the following but not limited to:Possible complications of Surgery. -infection -recurrence -cont pain -hypertrophic scar -stiffness -nerve injury -blood clots -need for additonal surgery -loss of function -loss of ability to work -recurrence of deformity Procedure(s):phenol nail ablaition medial boarder right hallux -Patient's FULL name, date of , FULL Social Security number, procedure identification, laterality, medication review, allergy review, all verified with patient and correlated to the medical record AND CONSENT prior to start of procedure. Staff present during timeout:Evens Krishnamurthy -Local anesthesia: 2% lidocaine plain volume [6ml ] injected to:right hallux base. -Chlorhexidine prep in a circular fashion rotating out from the proposed procedure area 5 cm Problem focused: Ingrown but not infected (no erythema, drainage) Nail Digit # [x] right [ ] Left [x] medial boarder [ ] lateral boarder Impression: Chronic ingrown toenail of digit number: Right medial boarder Procedure: -2% local anesthetic placed to the base of the digit utilizing a total volume of 3 mL. Without epinephrine -Full forefoot prepped to the midtarsal joint -Anesthesia verified. -With sterile instrumentation and sterile procedure including sterile gloves sterile field and sterile hemostats gauze and dressings, Vaseline, and latex tourniquet placed at the base of the toe, a partial nail avulsion was performed, at the [x] medial [ ] lateral border of the toenail Right Hallux -Next 3-30-second applications of phenol were placed into the proximal nail matrix area with Vaseline protecting the surrounding skin and nail tissue. -The wound was then flushed with sterile saline syringes 6 mL x 4 flushes and the tourniquet was removed[total tourniquet time less than 3 minutes]. Immediate capillary refill was noted to the digit after tourniquet removal and bleeding was well controlled with pressure. -Bacitracin was applied to the wound and a gauze Curlex and Coban dressing were applied. The patient tolerated the anesthesia and procedure well was monitored for 10 minutes post procedure was given written and oral instructions as follows for aftercare and follow-up: Post Procedure Instructions Minor Nail Surgery What to Expect: 1. You will begin to regain sensation about 3-5 hours after your procedure 2. You will have minor pain usually managed well with Advil (over the counter ibuprofen)or Tylenol -follow package instructions for dosage. 3. If you experience sever pain you must come in for evaluation to urgent care or the Emergency room. After Care: 1. Leave dressing in place for the first 24 hours 2. Remove dressing the next day. 3. Apply Bacitracin ointment to the nail groove and cover with 2 bandaid. 4. You may soak your toes in Epsom salts and warm clean tap water for 10 -15 minutes ea. Day. Follow instructions on package for Epsom salts for concentration. Use clean tap water. 5. Repeat this step every day. 6. Avoid getting wet for the first 5 days, after this you may shower. 7. After shower be sure to apply bacitracin to the wound. When to call: 1. If you have pain that is not managed with above medication 2. If you see redness and swelling and excessive drainage 3. If you have any difficulty with the above instructions and are unsure of what to do. Along with contact numbers to the clinic [phone] [facility] 1514 with any concerns /es/ CYNTHIA ESPOSITO DPM PODIATRY ATTENDING Signed: 06/26/2024 14:46 CYNTHIA ESPOSITO CNTRL [facility]
--- OUTSIDE RECORDS SUMMARY | 2024-07-17 16:47 | XMS_ITS | Encounter Summary ---
Author Name [facility] [place] [facility] [place] Organization [facility] [place] Address [address] [place] [address] Care Team Providers Care Nozzle And Sleeve Worker Name Role Phone LORETTA HANSON Primary [...] [place] H Aug 05, 2021 01 [id number] [id number] ELVIN WALSH PATIENT Selected Encounter This section includes the information on record at [place] for the Encounter. Date/Time Encounter Type Encounter Description Reason Provider Source Jun 24, 2024 02:45 PM QNHP OL DIG ASSMT&MGMT 11-20 CLINICAL PHARMACY ICD-10-CM F90.0 Attn-defct hyperactivity disorder, predom inattentive type HECTOR CHAUDHARI Encounter Template Text not used by [facility] Assessments - Encounter Diagnoses This section includes the primary and secondary diagnoses documented for the Encounter. Date/Time Primary/Secondary Diagnosis Diagnosis Name Provider Source Jun 24, 2024 02:48 PM PRIMARY Attn-defct hyperactivity disorder, predom inattentive type [facility]I [facility] Plan of Treatment: Future Appointments (+ 6 months) and Future Tests (+/- 45 days) The Plan of Treatment section includes future care activities for the patient from all [place] [facility]. This section includes future appointments [...] 26, 2024 09:00 AM [facility] Jul 13, 2024 09:00 AM [facility] Jul 22, 2024 08:30 AM [facility] Oct 15, 2024 10:00 AM AMBULATORY MEDICINE [facility] Active, Pending, and Scheduled Orders This section includes a listing of several types of active, pending, and scheduled orders, including clinic medications orders, diagnostic test orders, procedure orders and consult orders; where the start date of the order is 45 days before the date of the Encounter or 45 days after the date of theEncounter. The data comes from all [facility]. Test Date/Time Test Type Test Details Facility Name Jun 03, 2024 12:30 PM Consult Order DERMATOLOGY/NH[facility] (OUTPT) Cons Bituminous Paving Machine Operator's Choice [facility] Jun 18, 2024 12:00 AM Laboratory - Chemistry Order DRUGS OF ABUSE URINE (DRUG) [facility] [place] [facility] Jun 30, 2024 01:22 PM Consult Order COMMUNITY CARE- PSYCHOTHERAPY Cons Bituminous Paving Machine Operator's Choice [facility] Lab Results: +/- 30 days of the encounter This section includes the Chemistry and Hematology Lab Results on record with [place] for the patient. Radiology Reports and Pathology Reports are provided separately, in subsequent sections. Lab Results This section contains the Chemistry/Hematology Results that were resulted 30 days before or 30 daysafter the date of the Encounter. Date/Time Source Result Type Result - Unit Interpretation Reference Range Comment Jun 05, 2024 02:23 PM [facility] CT/GC DNA PANEL(IN-HOUSE) Specimen Type: URINE Comment: Test performed on the [employer] Genexpert. A negative test results does not exclude the possibility of infection because results may be affected by improper specimen collection, concurrent antibiotic therapy, or the number of organisms in the specimen which may be below the sensitivity of the test. Ordering Provider: MAR HANSON Report Released Date/Time: Jun 05, 2024 02:02 PM Reporting Lab: [address] [address] Performing Lab: [address] [address] GC PCR NOT DETECTED Not Detected CT PCR NOT DETECTED Not Detected Jun 05, 2024 02:23 PM [facility] MICROSCOPIC AUTOMATED, URINE Specimen Type: URINE Comment: If Glucose = >500 and Ketones are positive, please alert the Physician. Ordering Provider: MAR HANSON Report Released Date/Time: Jun 05, 2024 02:02 PM Reporting Lab: [address] [address] Performing Lab: [address] [address] UA WBC 0-5 /[HPF] 0-5 UA MUCUS FEW /[LPF] Trace UA RBC 11-20 /[HPF] H 0-3 Jun 05, 2024 02:23 PM [facility] URINALYSIS CLEAN CATCH Specimen Type: URINE Comment: If Glucose = >500 and Ketones are positive, please alert the Physician. Ordering Provider: MAR HANSON Report Released Date/Time: Jun 05, 2024 02:02 PM Reporting Lab: [address] [address] Performing Lab: [address] [address] UA COLOR Light-Yellow Yellow UA APPEARANCE Clear [...] Facil ity Aug 26, 2023 10:00 AM [place]-TOBACCO FORMER USER [facility] Tobacco Use History This section includes a history of the smoking, or tobacco-related health factors, that were collected on or before the date of the Encounter. The data comes from the [place] facility where the Encounter took place. Date/Time Smoking Status/Tobacco Use Comment F acility Aug 26, 2023 10:00 AM [place]-TOBACCO QUIT 15 YRS OR MORE [facility] Apr 11, 2022 11:00 AM [place]-TOBACCO FORMER USER [facility] Apr 11, 2022 11:00 AM [place]-TOBACCO QUIT 15 YRS OR MORE [facility] Advance Directives: All historical and current Section Date Range: From patient's date of to the date document was created. This section includes ALL of a patient's completed or amended [place] Advance and Rescinded Directives. The entries below indicate that a directive exists for the patient, but an actual copy is not included with this document. The data comes from all [place] facilities. Date Advance Directives Provider Source May 16, 2011 ADVANCE DIRECTIVE DISCUSSION TON SARAVIA Sep 27, 2005 ADVANCE DIRECTIVE SHARLENE SIDHU [facility] Sep 10, 2005 ADVANCE DIRECTIVE DISCUSSION FRANCE RODRIGEZ [facility] Aug 14, 2004 ADVANCE DIRECTIVE DISCUSSION [...] the Encounter. The data comes from all [place] treatment facilities. Date/Time Radiology Report Provider Source Jun 05, 2024 02:[address] ABDOMEN AND PELVIS WITHOUT CONT.: ELVIN REYNA [id number] -1975 M Ex Date: JUN 05, 2024@14:27 Req Phys: LORETTA HANSON Loc: CWM/NO/PACT 7 (Req'g Loc) Img Loc: NHM/CT Service: Unknown [place] [address] (Case [id number] COMPLETE) CT ABDOMEN AND PELVIS WITHOUT CON(CT Detailed) CPT:02478 Reason for Study: lower abdominal pain Clinical History: h/o kidney stone, having worsening pain Report Status: Verified Date Reported: JUN 07, 2024 Date Verified: JUN 07, 2024 Car Repairer Pullman E-Sig: Report: CT ABDOMEN AND PELVIS WITHOUT CONT. HISTORY: lower abdominal pain COMPARISON: 11/28/2091. TECHNIQUE: CT of the abdomen and pelvis with multiplanar reformats was performed at the local [place] facility. 497 images were received by the [place] National Teleradiology Program (NTP) for interpretation. RADIATION [...] read-back verification. READING PHYSICIAN: Rashida Hawk MD -[phone] 06/07/2024 6:44 PST [facility] National Teleradiology Program [phone] (For Medical Practitioner Use Only) Attention Patients / Veterans: If you have questions or concerns about these test results, please contact your ordering provider or primary care team. Primary Diagnostic Code: CRITICAL ABNORMALITY Primary Interpreting Staff: RADIOLOGY,OUTSIDE SERVICE, Staff Physician / RADIOLOGY,OUTSIDE SERVICE [facility] NoteWagon [facility] Pathology Reports: +/- 30 days [...] the Encounter. The data comes from all [place] treatment facilities. Date/Time Pathology Report Provider Source Jun 05, 2024 02:23 PM LR MICROBIOLOGY REPORT: Reporting Lab: [facility] NoteWagon [facility] [CLIA# [id number]] [address] [place] [id number] Accession [UID]: [id number] [[id number]] Received: Jun 05, 2024@14:23 Collection sample: URINE CLEAN CATCH Collection date: Jun 05, 2024 14:23 Site/Specimen: URINE Provider: LORETTA HANSON Test(s) ordered: URINE CULTURE(MWROX).......... completed: Jun 08, 2024 09:02 * BACTERIOLOGY FINAL REPORT => Jun 08, 2024 09:02 TECH CODE: [id number] Bacteriology Remark(s): NO GROWTH IN 24 HOURS, FINAL REPORT TO FOLLOW. FINAL AEROBIC REPORT: NO GROWTH =--=--=--=--=--=--=--=--=--= --=--=--=--=--=--=--=--=--=- -=--=--=--=--=--=--=-- Performing Laboratory: Bacteriology Report Performed By: [facility] [CLIA# [id number]] [address] [place] [address] CYRUS ESPINOZA [facility] Jun 02, 2024 11:29 AM LR SURGICAL PATHOLOGY REPORT: LOCAL TITLE: LR SURGICAL PATHOLOGY REPORT STANDARD TITLE: PATHOLOGY DIAGNOSTIC STUDY REPORT DATE OF NOTE: JUN 02, 2024@11:29:44 ENTRY DATE: JUN 02, 2024@11:29:44 AUTHOR: MAGDALENA STOCKTON MD EXP COSIGNER: URGENCY: STATUS: COMPLETED $APHDR Reporting Lab: [facility] [CLIA# [id number]] [address] [place] [address] - - - - - - - [...] - - - - - Gross description: RUST 25 [id number];;1;Melinda REYNA This is a [facility] case number [facility] [id number]. Received in formalin [...] lower back: Hemangioma, completely excised. CPT code 63727 /roberto/ MAGDALENA STOCKTON MD Board Certified Dermatopathologist Signed Jun 02, 2024@11:29 Performing Laboratory: Surgical Pathology Report Performed By: [facility] [CLIA# [id number]] [address] [place] [id number] $FTR - - - - - - [...] - ELVIN REYNA JR STANDARD FORM 515 ID:[id number] SEX:M :1975 AGE: 48 LOC:CWM/NO/GS PCP: Loretta Hanson NP /roberto/ MAGDALENA STOCKTON MD Board Certified Dermatopathologist Signed: 06/02/2024 11:29 MAGDALENA STOCKTON MD [facility] Encounter Notes: All associated encounter notes This section contains the clinical notes associated to the Encounter. Date/Time Encounter Note(s) Provider Source Jun 24, 2024 02:45 PM PHARMACY CONSULT: LOCAL TITLE: CONSULT REPORT/PRIOR AUTH FACILITY PADR STANDARD TITLE: PHARMACY CONSULT DATE OF NOTE: JUN 24, 2024@14:45 ENTRY DATE: JUN 24, 2024@14:45:29 AUTHOR: HECTOR CHAUDHARI EXP COSIGNER: URGENCY: STATUS: COMPLETED The medical record has been reviewed with regard to this restricted drug request. Medication requested: LISDEXAMFETAMINE DIMESYLATE 10MG CAP Medication indication: ADHD Medical history relevant to this request: 48 y/o [place] with ADHD. Case reviewed with provider. is medication sensitive and recent failed medication trials for this reason. He has had trials of bupropion and atomoxetine. It is felt the lisdexamfetamine would be better next step vs formulary stimulants due to pharmacokinetic effects that may make it better tolerated in this case (i.e. longer onset of action, etc). The request is APPROVED - A documented therapeutic failure of the preferred formulary alternative(s) mj /roberto/ HECTOR CHAUDHARI Cecily, PHARMD CLINICAL AUTOMOTIVE ENGINEER Signed: 06/24/2024 14:48 HECTOR CHAUDHARI [place] [facility]
--- OUTSIDE RECORDS SUMMARY | 2024-07-17 16:47 | XMS_ITS ---
Author Name [facility] [facility] [place] Organization [place] Address [address], [place] [address] Care Team Providers Care Dance Director Name Role Phone LORETTA HANSON Primary Care [...] Gonzalez's Name Patient's Relationship to Policy Gonzalez [facility] MEDICAID [facility] Aug 05, 2021 01 [id number] ELVIN WALSH PATIENT Selected Encounter This section includes the information on record at [place] for the Encounter. Date/Time Encounter Type Encounter Description Reason Pro vider Source Jun 22, 2024 03:23 PM Outpatient Encounter COMMUNITY CARE CONSULT IHE [...] 26, 2024 09:00 AM AMBULATORY [facility] Jul 13, 2024 09:00 AM AMBULATORY MEDICINE [facility] NTRL TRN [facility] Jul 22, 2024 08:30 AM AMBULATORY MEDIC[facility] Oct 15, 2024 10:00 AM [facility] Active, Pending, and Scheduled Orders This section includes a listing of several types of active, pending, and scheduled orders, including clinic medications orders, diagnostic test orders, procedure orders and consult orders; where the start date of the order is 45 days before the date of the Encounter or 45 days after the date of theEncounter. The data comes from all [facility]. Test Date/Time Test Type Test Details Facility Name Jun 03, 2024 12:30 PM Consult Order DERMATOLOGY/[facility]M (OUTPT) Cons Program Director/Traffic Director's Choice [facility] Jun 18, 2024 12:00 AM Laboratory - Chemistry Order DRUGS OF ABUSE URINE (DRUG) [facility] Jun 30, 2024 01:22 PM Consult Order [facility]- PSYCHOTHERAPY Cons Program Director/Traffic Director's Choice [facility] Lab Results: +/- 30 days of [...] Range Comment Jun 05, 2024 02:[address] [facility] [address]/GC DNA PANEL(IN-HOUSE) Specimen Type: URINE Comment: Test performed on the [employer] Genexpert. A negative test results does not exclude the possibility of infection because results may be affected by improper specimen collection, concurrent antibiotic therapy, or the number of organisms in the specimen which may be below the sensitivity of the test. Ordering Provider: MAR HANSON Report Released Date/Time: Jun 05, 2024 02:02 PM Reporting Lab: [address] [address] Performing Lab: [address] [address] GC PCR NOT DETECTED Not Detected CT PCR NOT DETECTED Not Detected Jun 05, 2024 02:23 PM [facility] MICROSCOPIC AUTOMATED, URINE Specimen Type: URINE Comment: If Glucose = >500 and Ketones are positive, please alert the Physician. Ordering Provider: MAR HANSON Report Released Date/Time: Jun 05, 2024 02:02 PM Reporting Lab: [address] [address] Performing Lab: [address] [address] UA WBC 0-5 /[HPF] 0-5 UA MUCUS FEW /[LPF] Trace UA RBC 11-20 /[HPF] H 0-3 Jun 05, 2024 02:23 PM [facility] URINALYSIS CLEAN CATCH Specimen Type: URINE Comment: If Glucose = >500 and Ketones are positive, please alert the Physician. Ordering Provider: MAR HANSON Report Released Date/Time: Jun 05, 2024 02:02 PM Reporting Lab: [address] [address] Performing Lab: [address] [address] UA COLOR Light-Yellow Yellow UA APPEARANCE Clear [...] Terri ity Aug 26, 2023 10:00 AM [place]-TOBACCO FORMER USER [facility] Tobacco Use History This section includes a history of the smoking, or tobacco-related health factors, that were collected on or before the date of the Encounter. The data comes from the [place] facility where the Encounter took place. Date/Time Smoking Status/Tobacco Use Comment F acility Aug 26, 2023 10:00 AM [place]-TOBACCO QUIT 15 YRS OR MORE [facility] Apr 11, 2022 11:00 AM [place]-TOBACCO FORMER USER [facility] Apr 11, 2022 11:00 AM [place]-TOBACCO QUIT 15 YRS OR MORE [facility] Advance Directives: All historical and current Section Date Range: From patient's date of to the date document was created. This section includes ALL of a patient's completed or amended [place] Advance and Rescinded Directives. The entries below indicate that a directive exists for the patient, but an actual copy is not included with this document. The data comes from all [facility]. Date Advance Directives Provider Source May 16, 2011 ADVANCE DIRECTIVE DISCUSSION TON SARAVIA Sep 27, 2005 ADVANCE DIRECTIVE SHARLENE SIDHU [facility] Sep 10, 2005 ADVANCE DIRECTIVE DISCUSSION FRANCE RODRIGEZ [facility] Aug 14, 2004 ADVANCE DIRECTIVE DISCUSSION REGULO [...] the Encounter. The data comes from all [place] treatment facilities. Date/Time Radiology Report Provider Source Jun 05, 2024 02:[address] ABDOMEN AND PELVIS WITHOUT CONT.: ELVIN REYNA [id number] -1975 M Exm Date: JUN 05, 2024@14:27 Req Phys: LORETTA HANSON Loc: CWM/NO/PACT 7 (Req'g Loc) Img Loc: NHM/CT Service: Unknown [place] [facility] [address] (Case [id number] COMPLETE) CT ABDOMEN AND PELVIS WITHOUT CON(CT Detailed) CPT:33808 Reason for Study: lower abdominal pain Clinical History: h/o kidney stone, having worsening pain Report Status: Verified Date Reported: JUN 07, 2024 Date Verified: JUN 07, 2024 Medical Legal Investigator E-Sig: Report: CT ABDOMEN AND PELVIS WITHOUT CONT. HISTORY: lower abdominal pain COMPARISON: 11/28/2091. TECHNIQUE: CT of the abdomen and pelvis with multiplanar reformats was performed at the local [place] facility. 497 images were received by the [place] National Teleradiology Program (NTP) for interpretation. RADIATION [...] read-back verification. READING PHYSICIAN: Rashida Hawk MD -[phone] 06/07/2024 6:44 PST [facility] National Teleradiology Program [phone] (For Medical Practitioner Use Only) Attention Patients / Veterans: If you have questions or concerns about these test results, please contact your ordering provider or primary care team. Primary Diagnostic Code: CRITICAL ABNORMALITY Primary Interpreting Staff: RADIOLOGY,OUTSIDE SERVICE, Staff Physician / RADIOLOGY,OUTSIDE SERVICE [facility] Pathology Reports: +/- 30 days of [...] the Encounter. The data comes from all [place] treatment facilities. Date/Time Pathology Report Provider Source Jun 05, 2024 02:23 PM LR MICROBIOLOGY REPORT: Reporting Lab: [facility] [CLIA# [id number]] [address] [place] [phone] Accession [UID]: [id number] [[id number]] Received: Jun 05, 2024@14:23 Collection sample: URINE CLEAN CATCH Collection date: Jun 05, 2024 14:23 Site/Specimen: URINE Provider: LORETTA HANSON Test(s) ordered: URINE CULTURE(MWROX).......... completed: Jun 08, 2024 09:02 * BACTERIOLOGY FINAL REPORT => Jun 08, 2024 09:02 TECH CODE: [id number] Bacteriology Remark(s): NO GROWTH IN 24 HOURS, FINAL REPORT TO FOLLOW. FINAL AEROBIC REPORT: NO GROWTH =--=--=--=--=--=--=--=--=--= --=--=--=--=--=--=--=--=--=- -=--=--=--=--=--=--=-- Performing Laboratory: Bacteriology Report Performed By: [facility] [CLIA# [id number]] [address] [place] [address] [facility] ESPINOZA [facility] Jun 02, 2024 11:29 AM LR SURGICAL PATHOLOGY REPORT: LOCAL TITLE: LR SURGICAL PATHOLOGY REPORT STANDARD TITLE: PATHOLOGY DIAGNOSTIC STUDY REPORT DATE OF NOTE: JUN 02, 2024@11:29:44 ENTRY DATE: JUN 02, 2024@11:29:44 AUTHOR: MAGDALENA STOCKTON MD EXP COSIGNER: URGENCY: STATUS: COMPLETED $APHDR Reporting [facility] [CLIA# [id number]] [address] [place] [address] - - - - - - - [...] - - PATHOLOGY REPORT Accession No. [facility] 533 - - - - - [...] - - PATHOLOGY REPORT Accession No. [facility] 24 533 - - - - - - - - - - - - - - - - - - - - - - - - - - - - - - - - - - - - - - - - Gross description: [facility] 25 [id number];;1;Melinda REYNA This is a Psychiatric case number [facility] 24 [id number]. Received in formalin labeled [...] lower back: Hemangioma, completely excised. CPT code 97871 /roberto/ MAGDALENA STOCKTON MD Board Certified Dermatopathologist Signed Jun 02, 2024@11:29 Performing Laboratory: Surgical Pathology Report Performed By: [facility] [CLIA# [id number]] [address] [place] [address] $FTR - - - - - - [...] - ELVIN REYNA JR STANDARD FORM 515 ID:[id number] SEX:M :1975 AGE: 48 LOC:CWM/NO/GS PCP: Loretta Hanson NP /roberto/ MAGDALENA STOCKTON MD Board Certified Dermatopathologist Signed: 06/02/2024 11:29 MAGDALENA STOCKTON MD [facility] Encounter Notes: All associated encounter notes This section contains the clinical notes associated to the Encounter. Date/Time Encounter Note(s) Provider Source Jun 22, 2024 03:23 PM NONVA NOTE: LOCAL TITLE: [facility] PRESENTING CARE COORD PLAN STANDARD TITLE: NONVA NOTE DATE OF NOTE: JUN 22, 2024@15:23 ENTRY DATE: JUN 22, 2024@15:23:27 AUTHOR: MARY DALEY COSIGNER: URGENCY: STATUS: COMPLETED Emergency Notification Intake Date Presenting to the Facility: May Method of Contact: Notified from ECR worklist Notification ID: [id number] [facility] Referral #: [id number] [facility] Name: Hospital: [facility] Address: City: [place] State: [place] Zip Code: Phone : Community Facility Point of Contact: Name: Antonio Phone: Chief complaint: N20.0 Primary Diagnosis: Disposition Discharged Date of discharge: May Discharge to Comment: ER Only Two visits on the same day /roberto/ MARY CENTENO Signed: 06/22/2024 15:27 Receipt Acknowledged By: 06/22/2024 16:04 /roberto/ Nadia ESTRADA,RN,CCM TRANSFER/TRAVELING COORDINATOR MARY DALEY BILLERICA
--- OUTSIDE RECORDS SUMMARY | 2024-07-17 16:48 | XMS_ITS | Encounter Summary ---
Author Name [facility] [facility] [place] [facility] [place] Address [address] [place] [address] Care Team Providers Care Scientific Laboratory Supervisor Name Role Phone LORETTA HANSON Primary [...] Patient's Relationship to Policy [facility] Aug 05, 2021 01 [id number] ELVIN WALSH PATIENT Selected Encounter This section includes the information on record at [place] for the Encounter. Date/Time Encounter Type Encounter Description Reason Provider Source Jul 13, 2024 09:00 AM POSTOP FOLLOW-UP VISIT PODIATRY ICD-10-CM L60.0 Ingrowing SALAS Pfeiffer Zahra Encounter Template Text not used by [place] Assessments - Encounter Diagnoses This section includes the primary and secondary diagnoses documented for the Encounter. Date/Time Primary/Secondary Diagnosis Diagnosis Name Provider Source Jul 13, 2024 09:17 AM PRIMARY Ingrowing SALAS Pfeiffer [facility] Plan of Treatment: Future Appointments (+ 6 months) and Future Tests (+/- 45 days) The Plan of Treatment section includes [facility] care [facility] for the [facility] [place] [facility] This section includes future appointments and future orders which are active, pending or scheduled. Future Appointments This section includes appointments that were scheduled to occur 6 months from the date of the Encounter, up to a maximum of 20 appointments. The data comes from all [place] treatment facilities. Appointment Date/Time Appointment Type Appointme nt Facility Name Jul 22, 2024 08:30 AM AMBULATORY [facility] MEDICINE [facility] Oct 15, 2024 10:00 AM AMBULATORY MEDICINE [facility] Active, Pending, and Scheduled Orders This section includes a listing of several types of active, pending, and scheduled orders, including clinic medications orders, diagnostic test orders, procedure orders and consult orders; where the start date of the order is 45 days before the date of the Encounter or 45 days after the date of theEncounter. The data comes from all [facility] facilities. Test Date/Time Test Type Test Details Facility Name Jun 03, 2024 12:30 PM Consult Order DERMATOLOGY/[facility] (OUTPT) Cons [facility] Jun 18, 2024 12:00 AM Laboratory - Chemistry Order DRUGS OF ABUSE URINE (DRUG) SP [facility] Jun 30, 2024 01:22 PM Consult Order [facility]- PSYCHOTHERAP[facility] Cons [facility] Social History: Smoking Status (Most current) [...] 26, 2023 10:00 AM VA-TOBACCO FORMER USER [facility] Tobacco Use History This section includes a history of the smoking, or tobacco-related health factors, that were collected on or before the date of the Encounter. The data comes from the [place] facility where the Encounter took place. Date/Time Smoking Status/Tobacco Use Comment F acility Aug 26, 2023 10:00 AM [place]-TOBACCO QUIT 15 YRS OR MORE [facility] Apr 11, 2022 11:00 AM [place]-TOBACCO FORMER USER [facility] Apr 11, 2022 11:00 AM [place]-TOBACCO QUIT 15 YRS OR MORE [facility] Advance Directives: All historical and current [...] 16, 2011 ADVANCE DIRECTIVE DISCUSSION TON SARAVIALE DIANE Sep 27, 2005 ADVANCE DIRECTIVE SHARLENE SIDHU [facility] Sep 10, 2005 ADVANCE DIRECTIVE DISCUSSION FRANCE RODRIGEZ [facility] Aug 14, 2004 ADVANCE DIRECTIVE DISCUSSION REGULO AGUILAR [place] Encounter Notes: All associated encounter notes This section contains the clinical notes associated to the Encounter. Date/Time Encounter Note(s) Provider Source Jul 13, 2024 09:14 AM PODIATRY NOTE: LOCAL TITLE: PODIATRY NOTE STANDARD TITLE: PODIATRY NOTE DATE OF NOTE: JUL 13, 2024@09:14 ENTRY DATE: JUL 13, 2024@09:14:43 AUTHOR: SALAS KONG EXP COSIGNER: URGENCY: STATUS: COMPLETED Podiatry [facility] Follow up Provider: Salas Kong Date: JUL 13, 2024 ELVIN REYNA [address] [address] Jul 46 MALE [id number] PATIENT PHONE - Primary Care: LORETTA HANSON Follow up Visit Concern: Patient is status post phenol alcohol procedure medial border right hallux June 26 patient is now approximately 2-1/2 weeks postop. Returns today for follow-up Subjective: Reports no clinical signs of infection feeling better every day. 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 Service connections:Service Connected Disabilities with % Eligibility: [facility] VERIFIED Medical problems active: Active Problem Gallbladder polyp K82.4 03/26/2023 LORETTA HANSON Pain in right arm M79.601 02/21/2023 LORETTA HANSON Poon's esophagus K22.70 09/18/2022 LORETTA HANSON Attention deficit hyperactivity dis 06/25/2022 LACEYELISHA Wally Sleep apnea G47.33 04/12/2022 LORETTA HANSON Overweight E66.3 04/12/2022 LORETTA HANSON GERD - Gastro-Esophageal Reflux Dis 04/11/2022 LORETTA HANSON Anxiety ([facility] [id number]) F41.9 04/11/2022 LORETTA HANSON Hyperlipidemia ([facility] [id number]) E78.5 04/11/2022 LORETTA HANSON Fatty liver K76.0 04/11/2022 LORETTA HANSON Family history of diabetes mellitus 04/11/2022 LORETTA HANSON Active mediciation: Active Outpatient Medications (including Supplies): Active Outpatient Medications Status 1) AZELASTINE 137MCG/SPRAY 200D NASAL INHL SPRAY 1 SPRAY INTO ACTIVE EACH NOSTRIL ONCE DAILY Indication: FOR SEASONAL RUNNY NOSE 2) DM 10/GUAIFENESN 100MG/5ML (AF & SF) LIQ TAKE 5 MLS BY MOUTH ACTIVE EVERY 6 HOURS NEEDED Indication: FOR COUGH 3) OMEPRAZOLE 20MG EC CAP TAKE ONE CAPSULE BY MOUTH ONCE DAILY ACTIVE Indication: FOR EXCESSIVE PRODUCTION OF STOMACH ACID Active Non-VA Medications Status 1) Non-VA OTHER CAP/TAB RACHANA WORKZ MUSHROOM COMPLEX BY MOUTH ACTIVE ONCE DAILY 2) Non-VA PROBIOTIC (CULTURELLE DIGESTIVE DAILY) CAP/TAB BY ACTIVE MOUTH 5 Total Medications Allergies: Data on this list may not be complete. Please check JLV. FACILITY ALLERGY/ADR -------- [facility] NO K[facility]OWN ALLERGIES [facility] NO KNOWN ALLERGIES [facility] NO KNOWN ALLERGIES [facility] No Known Allergies [facility] PE: Well-appearing NAD Surgical site is clean dry no erythema or edema, currently no present nail growth as expected. Impression: -Normal healing without complication Plan: -May leave open to air now and shower and bathe as usual -Call if any problems Return sooner if any fever chills nausea, [...] as results of the physical exam and it infrastructure consultant opinions and recommendations as sought. Alternatives [...] -The on this visit was given information [employer] service and encouraged to enroll if not already having done so. /roberto/ SALAS KONG DPM PODIATRY ATTENDING Signed: 07/13/2024 09:17 SALAS KONG [facility]
--- OUTSIDE RECORDS SUMMARY | 2024-07-17 16:48 | XMS_ITS | Encounter Summary ---
Author Name [facility] [place] Organization [facility] [place] Address [address] [facility], [place] [address] Care Team Providers Care Weighmaster Lead Name Role Phone LORETTA HANSON Primary Care [...] [facility] Aug 05, 2021 01 [id number] ELVIN WALSH PATIENT Selected Encounter This section includes the information on record at [place] for the Encounter. Date/Time Encounter Type Encounter Description Reason Pro vider Source Jul 15, 2024 10:29 AM Outpatient Encounter PRIMARY CARE/MEDICINE [...] 22, 2024 08:30 AM AMBULATORY - [facility] Oct 15, 2024 10:00 AM AMBULATORY - MEDICINE [facility] Active, Pending, and Scheduled Orders [...] 2024 12:30 PM Consult Order DERMATOLOGY/[facility] (OUTPT) [facility]ocate[facility] Jun 18, 2024 12:00 AM Laboratory - Chemistry Order DRUGS OF ABUSE URINE (DRUG) SP [facility] Jun 30, 2024 01:22 PM Consult Order [facility]- PSYCHOTHERAPY Cons Health Advocate's Choice [facility] Social History: Smoking Status [...] 26, 2023 10:00 AM VA-TOBACCO FORMER USER [facility] Tobacco Use History This section includes a history of the smoking, or tobacco-related health factors, that were collected on or before the date of the Encounter. The data comes from the [place] facility where the Encounter took place. Date/Time Smoking Status/Tobacco Use Comment F acility Aug 26, 2023 10:00 AM [place]-TOBACCO QUIT 15 YRS OR MORE [facility] Apr 11, 2022 11:00 AM VA-TOBACCO FORMER USER [facility] Apr 11, 2022 11:00 AM [place]-TOBACCO QUIT [facility] YRS OR MORE [facility] [...] 10, 2005 ADVANCE DIRECTIVE DISCUSSION FRANCE RODRIGEZ [facility] Aug 14, 2004 ADVANCE DIRECTIVE DISCUSSION REGULO AGUILAR Encounter Notes: All associated encounter notes This section contains the clinical notes associated to the Encounter. Date/Time Encounter Note(s) Provider Source Jul 15, 2024 10:29 AM NURSING NOTE: LOCAL TITLE: NURSING/TELEPHONE STANDARD TITLE: NURSING NOTE DATE OF NOTE: JUL 15, 2024@10:29 ENTRY DATE: JUL 15, 2024@10:29:56 AUTHOR: JOHNATHAN VERA EXP COSIGNER: URGENCY: STATUS: COMPLETED HT called vet, spoke with vet reminding to complete stool kit sample and mail back in [facility]. Vet acknowledge that he still have kit, will complete kit and mail in. 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
--- OUTSIDE RECORDS SUMMARY | 2024-07-17 17:25 | XMS_ITS | Continuity of Care Document ---
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 It does not include entries that were removed or entered in error. Problem Status Onset Date Problem Type Date of Resolution Comments Source Adjustment disorder with mixed emotional features Active Condition [facility] Adjustment reaction with mixed disturbance of emotion (SNOMED CT 31884067) Active Condition [facility] Alcohol Dependence * (ICD-9-CM 303.90/303.91) Active Condition Mar 18, 2006 Entered By: DILMA JARRELL Comment: In Remission [facility] Alcohol dependence syndrome (SNOMED CT 32610866) Active Condition [facility] Anxiety (SCT 00862081) Active Condition [facility] Asthma - currently active (SNOMED CT 620499769) Active Condition [place] Attention deficit hyperactivity disorder, predominantly inattentive type Active Condition [facility] Attn Defic w/Hyperactiv. Active Condition [facility] Poon's esophagus Active Condition [facility] Depressive disorder Active Condition [facility] Family history of diabetes mellitus Active Condition [facility] Fatty liver Active Condition [facility] Gallbladder polyp Active Condition Au g 2022 Entered By: ILDA HANSON Comment: repeat abdominal u/s March 2024 [facility] Gastroesophageal reflux disease Active Condition [facility] GERD - Gastro-Esophageal Reflux Disease (SCT 015133884) Active Condition [facility] GERD * (ICD-9-CM 530.81) Active Condition [facility] Hyperlipidemia Active Condition [facility] Hyperlipidemia (SCT 53065940) Active Condition [facility] Hyperlipidemia (SNOMED CT 84891276) Active Condition [place] Hyperlipidemia (SNOMED CT 11708961) Active Condition Apr 12, 2005 Entered By: CAITLYN JENKINS Comment: labs of 08/09 [place] INSOMNIA, unspecified (ICD-9-CM 780.52) Active Condition [facility] Major Depression, recurrent (ICD-9-CM 296.30) Active Condition [facility] Mild depression (SNOMED CT 852489025) Active Condition [facility] Ring's metatarsalgia, neuralgia, or neuroma Active Condition [facility] Obesity (SNOMED CT 121160229) Active Condition [place] Other and unspecified alcohol dependence, in remission (ICD-9-CM 303.93) Active Condition [facility] Overweight Active Condition [facility] Pain in right arm Active [facility] Sleep apnea Active Condition [facility] Verruca Active Condition [facility] Cannabis dependence, episodic use Inactive Condition 01/19/2010 [facility] Leukocytosis Inactive Condition 08/10/2005Apr Entered By: CAITLYN JENKINS Comment: WBC = 19K on 04/12/05 [place] Other and unspecified alcohol dependence, episodic drinking behavior Inactive Condition 07/11/2010 [facility] Diagnosis: ICD-10-CM L60.0 Ingrowing nail [...] init Active Diagnosis [facility] [place] [facility] Diagnosis: ICD-10-CM J01.90 Acute sinusitis, unspecified Active Diagnosis [facility] Diagnosis: ICD-10-CM H52.223 Regular astigmatism, bilateral Active Diagnosis [facility] Diagnosis: ICD-10-CM Z56.0 Unemployment, unspecified Active Diagnosis [facility] (6[facility]) Diagnosis: ICD-10-CM M25.521 Pain in right elbow Active Diagnosis [facility] [place] [facility] Medications Combined list of outpatient [...] TWICE DAILY FOR INFECTIO N ORAL 02/20/2024 [id number] MACHELLE DAVID 2023 20 [facility] AZELASTINE HCL 137MCG/SPRA Y INHL,NASAL, 30ML SPRAY 1 SPRAY INTO EACH NOSTRIL ONCE DAILY FOR SEASONAL RUNNY NOSE NASAL ACTIVE 01/01/2025 [id number] 4 LORETTA HANSON 2023 1 [facility] AZELASTINE HCL 137MCG/SPRA Y INHL,NASAL, 30ML SPRAY 1 SPRAY INTO EACH NOSTRIL ONCE DAILY FOR SEASONAL RUNNY NOSE NASAL DISCONT INUED 05/27/2024 [id number] MACHELLE DAVID 2022 1 [facility] AZITHROMYCI N 250MG TAB TAKE TWO TABLETS BY MOUTH ONCE DAILY FOR 1 DAY, THEN TAKE ONE TABLET ONCE DAILY FOR 4 DAYS ORAL 06/26/2023 [id number] MACHELLE DAVID 2022 6 [facility] BUSPIRONE HCL 5MG TAB TAKE ONE-HALF TABLET BY MOUTH ONCE DAILY ORAL DISCONT INUED BY PROVIDE R 09/05/2024 [id number] 4 MATT GALVAN 2023 15 [facility] CETIRIZINE HCL 10MG TAB TAKE ONE TABLET BY MOUTH ONCE DAILY FOR ALLERGIE S ORAL 03/31/2024 [id number] 4 LORETTA HANSON 2023 90 [facility] CETIRIZINE HCL 10MG TAB TAKE ONE TABLET BY MOUTH ONCE DAILY FOR ALLERGIE S ORAL 08/25/2023 [id number] MACHELLE DAVID 2022 90 [facility] CHOLECALCIF ARAM 50MCG (2,000UNIT) TAB TAKE ONE TABLET BY MOUTH ONCE DAILY FOR VITAMIN SUPPLEME NTATION ORAL 06/21/2024 [id number] 4 LORETTA HANSON 2022 100 [facility] DEXAMETHASO NE 0.1%/TOBRAM YCIN 0.3% OINT,OPH APPLY SMALL AMOUNT INTO THE LEFT EYE AT BEDTIME OPHTHA LMIC 12/26/2023 [id number] 4 Sherwin MICHAELS 2023 1 [facility] DEXTROMETHO RPHAN HBR 10MG/GUAIFE NESIN 100MG/5ML (AF & SF) LIQUID TAKE 5 MLS BY MOUTH EVERY 6 HOURS NEEDED FOR COUGH ORAL ACTIVE 04/30/2025 [id number] 4 MACHELLE DAVID 2023 240 [facility] ESCITALOPRA M OXALATE 5MG TAB TAKE ONE-HALF TABLET BY MOUTH ONCE DAILY FOR 14 DAYS, THEN TAKE ONE TABLET ONCE DAILY FOR MOOD/DEP RESSION ORAL DISCONT INUED BY PROVIDE R 10/17/2023 [id number] MATT GALVAN 2023 38 [facility] GUAIFENESIN 200MG TAB TAKE ONE TABLET BY MOUTH EVERY 4 HOURS NEEDED FOR CONGESTI ON ORAL 06/26/2023 [id number] 3 MACHELLE DAVID AKIKO GROSS 2022 30 [facility] OMEPRAZOLE 20MG CAP,EC TAKE ONE CAPSULE BY MOUTH ONCE DAILY ORAL ACTIVE 11/08/2024 [id number] 4 LORETTA HANSON 2023 90 [facility] OMEPRAZOLE 20MG CAP,EC TAKE ONE CAPSULE BY MOUTH ONCE DAILY ORAL DISCONT INUED 09/04/2023 [id number] 4 LORETTA HANSON 2022 90 [facility] OTHER CAP/TAB TAKE RACHANA WORKZ MUSHROOM COMPLEX BY MOUTH ONCE DAILY ORAL ACTIVE RAGUINMATT BAZZI D 2023 [facility] PROBIOTIC (CULTURELLE DIGESTIVE DAILY) CAP/TAB TAKE BY MOUTH ONCE DAILY ORAL ACTIVE MATT GALVAN D 2022 [facility] TAMSULOSIN HCL 0.4MG CAP TAKE ONE CAPSULE BY MOUTH ONCE DAILY FOR 10 DAYS ORAL 06/02/2024 [id number] ZEFERINO DING 2023 10 [facility] Allergies, Adverse Reactions, Alerts Combined list of allergies from Department of Defense and Veterans Affairs facilities. It does not include entries that were removed or entered in error. Substance Category Reaction Severity Reaction type Status Date Reported Comments Source CHICKEN Propensity to adverse reactions to food (finding) active 12/29/2020 [facility] EGGS Propensity to adverse reactions to substance (finding) active 12/29/2020 [facility] SHRIMP Propensity to adverse reactions to food (finding) Anxiety, Urticaria, Eruption MODERATE active 05/15/2021 [facility] Immunizations Combined list of available immunizations from the Department of Defense and Veterans Affairs facilities. Immunization Series Date Given Administered By Site Reaction Lot Number CVX Code Drug Bushler Status Comments Source INFLUENZA, INJECTABLE, QUADRIVALENT, PRESERVATIVE FREE 2023 GIANCARLO CHAMORRO LEFT DELTO ID [id number] 150 complet ed [facility] HEP A-HEP B 2 2022 GIANCARLO CHAMORRO LEFT DELTO ID [id number] 104 complet ed [facility] HEP A-HEP B 1 2022 IGOR GRACAI HY E RIGHT DELTO ID [id number] 104 complet ed [facility] PNEUMOCOCCAL CONJUGATE PCV20, POLYSACCHARID E [id number] CONJUGATE, ADJUVANT, PF 2022 IGOR GRACIA HY E LEFT DELTO ID [id number] 216 complet ed [facility] [place] [facility] INFLUENZA, INJECTABLE, QUADRIVALENT, PRESERVATIVE FREE 2021 ASHUTOSH RIVERA RIGHT DELTO ID [id number] 150 complet ed [facility] [place] [facility] COVID-19 (MODERNA), MRNA, LNP-S, BIVALENT BOOSTER, PF, 50 MCG/0.5 ML OR 25MCG/0.25 ML DOSE 1 2021 229 complet ed MOD; [id number]; 3 [facility] [place] [facility] PNEUMOCOCCAL POLYSACCHARID E [id number] 2021 33 complet ed [place] COVID-19 (MODERNA), MRNA, LNP-S, PF, 100 MCG OR 50 MCG DOSE 3 2020 207 complet ed [facility] COVID-19 (MODERNA), MRNA, LNP-S, PF, 100 MCG/0.5 ML DOSE 2 2020 207 complet ed MOD; [id number]; 1 [place] COVID-19 (MODERNA), MRNA, LNP-S, PF, 100 MCG/0.5 ML DOSE 1 2020 207 complet ed MOD; [id number]; 1 [place] TDAP 2018 NONE 115 complet ed [place] FLU,3 YRS (HISTORICAL) 2005 88 complet ed B[facility] DOMICIL IARY TD(ADULT) UNSPECIFIED FORMULATION 2005 139 complet ed [facility] PNEUMOCOCCAL REFUSED (HISTORICAL) 1999 complet ed TETANUS GIVEN 95 [place] TD(ADULT) UNSPECIFIED FORMULATION [address] [facility] Results Combined list of recent chemistry, hematology [...] Type: URINE Comment: Test performed on the [employer] Genexpert. A negative test results does not exclude the possibility of infection because results may be affected by improper specimen collection, concurrent antibiotic therapy, or the number of organisms in the specimen which may be below the sensitivity of the test. Ordering Provider: ILDA HANSON Report Released Date/Time: Jun 05, 2024 02:02 PM Reporting Lab: [address] [address] Performing Lab: [address] [address] [facility] CT/GC DNA PANEL(IN -HOUSE) CHLAMYDIA TRACHOMATI S DNA [PRESENCE] IN URINE BY ABELARDO WITH PROBE DETECTION NOT DETECTED 06/05 Specimen Type: URINE Comment: Test performed on the [employer] Genexpert. A negative test results does not exclude the possibility of infection because results may be affected by improper specimen collection, concurrent antibiotic therapy, or the number of organisms in the specimen which may be below the sensitivity of the test. Ordering Provider: ILDA HANSON Report Released Date/Time: Jun 05, 2024 02:02 PM Reporting Lab: [address] [address] Performing Lab: [address] [address] [facility] [employer] [facility] [employer] PIC AUTOMATE D, URINE LEUKOCYTES [#/AREA] IN URINE SEDIMENT BY MICROSCOPY HIGH POWER FIELD 0-5/[HPF ] 0 - 5 06/05 Specimen Type: URINE Comment: If Glucose = >500 and Ketones are positive, please alert the Physician. Ordering Provider: ILDA HANSON Report Released Date/Time: Jun 05, 2024 02:02 PM Reporting Lab: [facility] [address] [facility] [address] Performing Lab: [facility] [address] [facility] [address] [facility]ITAL[facility] MICROSCO PIC AUTOMATE D, URINE MUCUS [#/AREA] IN URINE SEDIMENT BY MICROSCOPY LOW POWER FIELD FEW/[LPF ] 06/05 Specimen Type: URINE Comment: If Glucose = >500 and Ketones are positive, please alert the Physician. Ordering Provider: ILDA HANSON Report Released Date/Time: Jun 05, 2024 02:02 PM Reporting Lab: [facility] [place] [facility] [address] [facility] [address] Performing Lab: [facility] [place] [facility] [address] [facility] [address] [facility]TRN [place] [facility] MICROSCO PIC AUTOMATE D, URINE ERYTHROCYT ES [#/AREA] IN URINE SEDIMENT BY MICROSCOPY HIGH POWER FIELD 11-20/[H PF] 0 - 3 06/05 H Specimen Type: URINE Comment: If Glucose = >500 and Ketones are positive, please alert the Physician. Ordering Provider: ILDA HANSON Report Released Date/Time: Jun 05, 2024 02:02 PM Reporting Lab: [facility] [place] [facility] [address] [facility] [address] Performing Lab: [facility]OSPITALTRN [facility]USE[address] [address] [facility]ITAL[facility] URINALYS IS CLEAN CATCH COLOR OF URINE Light-Ye llow 06/05 Specimen Type: URINE Comment: If Glucose = >500 and Ketones are positive, please alert the Physician. Ordering Provider: ILDA HANSON Report Released Date/Time: Jun 05, 2024 02:02 PM Reporting Lab: [facility] [address] [facility] [address] Performing Lab: [facility] [address] [facility] [address] [facility] URINALYS IS CLEAN CATCH APPEARANCE OF URINE Clear 06/05 Specimen Type: URINE Comment: If Glucose = >500 and Ketones are positive, please alert the Physician. Ordering Provider: ILDA HANSON Report Released Date/Time: Jun 05, 2024 02:02 PM Reporting Lab: [facility] [address] [facility] [address] Performing Lab: [facility] [address] [facility] [address] [facility] URINALYS IS CLEAN CATCH GLUCOSE [MASS/VOLU ME] IN URINE Normalmg /dL 06/05 Specimen Type: URINE Comment: If Glucose = >500 and Ketones are positive, please alert the Physician. Ordering Provider: ILDA HANSON Report Released Date/Time: Jun 05, 2024 02:02 PM Reporting Lab: [facility] [address] [facility] [address] Performing Lab: [facility] [address] [facility] [address] [facility] URINALYS IS CLEAN CATCH KETONES [MASS/VOLU ME] IN URINE BY TEST STRIP NEGATIVE mg/dL 06/05 Specimen Type: URINE Comment: If Glucose = >500 and Ketones are positive, please alert the Physician. Ordering Provider: ILDA HANSON Report Released Date/Time: Jun 05, 2024 02:02 PM Reporting Lab: [facility] [address] [facility] [address] Performing Lab: [facility] [address] [facility] [address] [facility] URINALYS IS CLEAN CATCH ERYTHROCYT ES [PRESENCE] IN URINE SEDIMENT BY LIGHT MICROSCOPY SMALLmg/ dL 06/05 Specimen Type: URINE Comment: If Glucose = >500 and Ketones are positive, please alert the Physician. Ordering Provider: ILDA HANSON Report Released Date/Time: Jun 05, 2024 02:02 PM Reporting Lab: [facility]TR[facility] [place] [address] [address] Performing Lab: [facility] [place] [facility] [address] [facility] [address] [facility]TR[facility] [place] [facility] URINALYS IS CLEAN CATCH PROTEIN [MASS/VOLU ME] IN URINE BY TEST STRIP NEGATIVE mg/dL 06/05 Specimen Type: URINE Comment: If Glucose = >500 and Ketones are positive, please alert the Physician. Ordering Provider: ILDA HANSON Report Released Date/Time: Jun 05, 2024 02:02 PM Reporting Lab: [facility]TR[facility] [place] [address] [address] Performing Lab: [facility] [place] [address] [address] [facility] [place] [facility] URINALYS IS CLEAN CATCH NITRITE [PRESENCE] IN URINE NEGATIVE mg/dL 06/05 Specimen Type: URINE Comment: If Glucose = >500 and Ketones are positive, please alert the Physician. Ordering Provider: ILDA HANSON Report Released Date/Time: Jun 05, 2024 02:02 PM Reporting Lab: [facility] [place] [address] [address] Performing Lab: [facility] [place] [address] [address] [facility] [place] [facility] URINALYS IS CLEAN CATCH BILIRUBIN. TOTAL [PRESENCE] IN URINE NEGATIVE mg/dL 06/05 Specimen Type: URINE Comment: If Glucose = >500 and Ketones are positive, please alert the Physician. Ordering Provider: ILDA HANSON Report Released Date/Time: Jun 05, 2024 02:02 PM Reporting Lab: [facility] [place] [facility] [address] [facility] [address] Performing Lab: [facility] [place] [facility] [address] [facility] [address] [facility] [place] [facility] URINALYS IS CLEAN CATCH SPECIFIC GRAVITY OF URINE BY REFRACTOME TRY 1.023 1.016 - 1.022 06/05 H Specimen Type: URINE Comment: If Glucose = >500 and Ketones are positive, please alert the Physician. Ordering Provider: ILDA HANSON Report Released Date/Time: Jun 05, 2024 02:02 PM Reporting Lab: [facility] [place] [facility] [address] [facility] [address] Performing Lab: [facility] [place] [facility] [address] [facility] [address] [facility] [place] [facility] URINALYS IS CLEAN CATCH PH OF URINE BY TEST STRIP 5.5 5.0 - 9.0 06/05 Specimen Type: URINE Comment: If Glucose = >500 and Ketones are positive, please alert the Physician. Ordering Provider: ILDA HANSON Report Released Date/Time: Jun 05, 2024 02:02 PM Reporting Lab: [facility] [place] [facility] [address] [facility] [address] Performing Lab: [facility] [place] [facility] [address] [facility] [address] [facility] W[facility] [place] [facility] URINALYS IS CLEAN CATCH UROBILINOG EN [MASS/VOLU ME] IN URINE BY TEST STRIP Normalmg /dL <2.0 - 2.0 06/05 Specimen Type: URINE Comment: If Glucose = >500 and Ketones are positive, please alert the Physician. Ordering Provider: ILDA HANSON Report Released Date/Time: Jun 05, 2024 02:02 PM Reporting Lab: [facility] [place] [facility] [address] [facility] [address] Performing Lab: [facility] [place] [address] [address] [facility] URINALYS IS CLEAN CATCH LEUKOCYTE ESTERASE [PRESENCE] IN URINE BY TEST STRIP NEGATIVE 06/05 Specimen Type: URINE Comment: If Glucose = >500 and Ketones are positive, please alert the Physician. Ordering Provider: ILDA HANSON Report Released Date/Time: Jun 05, 2024 02:02 PM Reporting Lab: [address] [address] Performing Lab: [facility] [address] [address] [facility] BASIC METABOLI C PANEL (non-fas ting) UREA NITROGEN [MASS/VOLU ME] IN SERUM OR PLASMA 19 mg/dL 7 - 25 02/11 Specimen Type: SERUM No comment entered. Ordering Provider: ILDA HANSON Report Released Date/Time: Feb 10, 2024 03:34 PM Reporting Lab: [address] [address] Performing Lab: [address] [address] [facility] BASIC METABOLI C PANEL (non-fas ting) GLUCOSE [MASS/VOLU ME] IN SERUM OR PLASMA 92 mg/dL 65 - 100 02/11 Specimen Type: SERUM No comment entered. Ordering Provider: ILDA HANSON Report Released Date/Time: Feb 10, 2024 03:34 PM Reporting Lab: [facility] [address] [address] Performing Lab: [facility] [address] [address] [facility] BASIC METABOLI C PANEL (non-fas ting) SODIUM [MOLES/VOL UME] IN SERUM OR PLASMA 139 mmol/L 135 - 145 02/11 Specimen Type: SERUM No comment entered. Ordering Provider: ILDA HANSON Report Released Date/Time: Feb 10, 2024 03:34 PM Reporting Lab: [facility] [place] [facility] [address] [facility] [address] Performing Lab: [facility] [place] [facility] [address] [facility] [address] [facility] [place] [facility] BASIC METABOLI C PANEL (non-fas ting) POTASSIUM [MOLES/VOL UME] IN SERUM OR PLASMA 4.1 mmol/L 3.5 - 5.0 02/11 Specimen Type: SERUM No comment entered. Ordering Provider: ILDA HANSON Report Released Date/Time: Feb 10, 2024 03:34 PM Reporting Lab: [facility] [place] [address] [address] Performing Lab: [facility] [place] [address] [address] [facility] [place] [facility] BASIC METABOLI C PANEL (non-fas ting) CHLORIDE [MOLES/VOL UME] IN SERUM OR PLASMA 106 mmol/L 100 - 110 02/11 Specimen Type: SERUM No comment entered. Ordering Provider: ILDA HANSON Report Released Date/Time: Feb 10, 2024 03:34 PM Reporting Lab: [facility] [place] [address] [address] Performing Lab: [facility] [place] [address] [address] [facility] [place] [facility] BASIC METABOLI C PANEL (non-fas ting) CARBON DIOXIDE, TOTAL [MOLES/VOL UME] IN SERUM OR PLASMA 22 meq/L 20 - 30 02/11 Specimen Type: SERUM No comment entered. Ordering Provider: ILDA HANSON Report Released Date/Time: Feb 10, 2024 03:34 PM Reporting Lab: [facility] [place] [address] [address] Performing Lab: [facility] [place] [address] [address] [facility] [place] [facility] BASIC METABOLI C PANEL (non-fas ting) CREATININE [MASS/VOLU ME] IN SERUM OR PLASMA 0.99 mg/dL 0.50 - 1.40 02/11 Specimen Type: SERUM No comment entered. Ordering Provider: ILDA HANSON Report Released Date/Time: Feb 10, 2024 03:34 PM Reporting Lab: [facility] [address] [address] Performing Lab: [facility] TRN [facility] [address] [address] [facility] [place] [facility] BASIC METABOLI C PANEL (non-fas ting) GLOMERULAR FILTRATION RATE/1.73 SQ M.PREDICTE D [VOLUME RATE/AREA] IN SERUM, PLASMA OR BLOOD BY CREATININE -BASED FORMULA (CKD-EPI 2020) >90mL/mi n 60 02/11 Specimen Type: SERUM No comment entered. Ordering Provider: ILDA HANSON Report Released Date/Time: Feb 10, 2024 03:34 PM Reporting Lab: [facility] [place] [address] [address] Performing Lab: [facility]N [facility] [address] [facility]ITALUSE [facility] CBC LEUKOCYTES [#/VOLUME] IN BLOOD BY AUTOMATED COUNT 7.42 10*3/uL 4.50 - 11.00 02/11 Specimen Type: BLOOD No comment entered. Ordering Provider: ILDA HANSON Report Released Date/Time: Feb 10, 2024 03:34 PM Reporting Lab: [facility] [address] [address] Performing Lab: [facility] [address] [phone] [facility] CBC ERYTHROCYT ES [#/VOLUME] IN BLOOD BY AUTOMATED COUNT 5.66 10*6/uL 4.23 - 5.66 02/11 Specimen Type: BLOOD No comment entered. Ordering Provider: ILDA HANSON Report Released Date/Time: Feb 10, 2024 03:34 PM Reporting Lab: [facility] [place] [facility] [address] [facility] [phone] Performing Lab: [facility] [place] [facility] [address] [facility] [phone] [facility] [place] [facility] CBC HEMOGLOBIN [MASS/VOLU ME] IN BLOOD 16.0 g/dL 12.8 - 17 02/11 Specimen Type: BLOOD No comment entered. Ordering Provider: ILDA HANSON Report Released Date/Time: Feb 10, 2024 03:34 PM Reporting Lab: [facility] [place] [facility] [address] [facility] [address] Performing Lab: [facility] [place] [facility] [address] [facility] [address] [place] [facility] [facility] [facility] CBC HEMATOCRIT [VOLUME FRACTION] OF BLOOD BY AUTOMATED COUNT 46.9 39.2 - 50.4 02/11 Specimen Type: BLOOD No comment entered. Ordering Provider: ILDA HANSON Report Released Date/Time: Feb 10, 2024 03:34 PM Reporting Lab: [facility] [place] [facility] [address] [facility] [address] Performing Lab: [facility] [place] [facility] [address] [facility] [address] [facility] [place] [facility] CBC MCV [ENTITIC VOLUME] BY AUTOMATED COUNT 82.9 fL 82 - 99 02/11 Specimen Type: BLOOD No comment entered. Ordering Provider: ILDA HANSON Report Released Date/Time: Feb 10, 2024 03:34 PM Reporting Lab: [facility] [place] [facility] [address] [facility] [address] Performing Lab: [facility] [place] [facility] [address] [facility] [address] [place] [facility] [facility] CBC MCHC [MASS/VOLU ME] BY AUTOMATED COUNT 34.1 g/dL 30.8 - 35.1 02/11 Specimen Type: BLOOD No comment entered. Ordering Provider: ILDA HANSON Report Released Date/Time: Feb 10, 2024 03:34 PM Reporting Lab: [facility] [place] [address] [facility] [address] Performing Lab: [facility] [address] [facility] [address] [facility] [place] [facility] CBC PLATELETS [#/VOLUME] IN BLOOD BY AUTOMATED COUNT 223 10*3/uL 140 - 360 02/11 Specimen Type: BLOOD No comment entered. Ordering Provider: ILDA HANSON Report Released Date/Time: Feb 10, 2024 03:34 PM Reporting Lab: [facility] [place] [facility] [address] [facility] [address] Performing Lab: [facility] [place] [facility] [address] [facility] [address] [facility] [place] [facility] CBC ERYTHROCYT E DISTRIBUTI ON WIDTH [RATIO] BY AUTOMATED COUNT 12.7 12.0 - 16.0 02/11 Specimen Type: BLOOD No comment entered. Ordering Provider: ILDA HANSON Report Released Date/Time: Feb 10, 2024 03:34 PM Reporting Lab: [facility] [place] [facility] [address] [facility] [address] Performing Lab: [facility] [place] [facility] [address] [facility] [address] [facility] [place] [facility] CBC MCH [ENTITIC MASS] BY AUTOMATED COUNT 28.3 pg 26.2 - 32.6 02/11 Specimen Type: BLOOD No comment entered. Ordering Provider: ILDA HANSON Report Released Date/Time: Feb 10, 2024 03:34 PM Reporting Lab: [facility] [place] [facility] [address] [facility] [address] Performing Lab: [facility] [place] [facility] [address] [facility] [address] [facility] [place] [facility] LIPID PANEL, NON FASTING CHOLESTERO L [MASS/VOLU ME] IN SERUM OR PLASMA 209 mg/dL 02/11 H Specimen Type: SERUM No comment entered. Ordering Provider: ILDA HANSON Report Released Date/Time: Feb 10, 2024 03:34 PM Reporting Lab: [facility] [place] [facility] [address] [facility] [address] Performing Lab: [facility] [place] [facility] [address] [facility] [address] [facility] [place] [facility] LIPID PANEL, NON FASTING TRIGLYCERI DE [MASS/VOLU ME] IN SERUM OR PLASMA 121 mg/dL 0 - 150 02/11 Specimen Type: SERUM No comment entered. Ordering Provider: ILDA HANSON Report Released Date/Time: Feb 10, 2024 03:34 PM Reporting Lab: [facility] [place] [facility] [address] [facility] [address] Performing Lab: [facility] [place] [facility] [address] [facility] [address] [place] [facility] [facility] LIPID PANEL, NON FASTING CHOLESTERO L IN LDL [MASS/VOLU ME] IN SERUM OR PLASMA BY CALCMIRA N 151 mg/dL 0 - 129 02/11 H Specimen Type: SERUM No comment entered. Ordering Provider: ILDA HANSON Report Released Date/Time: Feb 10, 2024 03:34 PM Reporting Lab: [facility] [place] [facility] [address] [facility] [address] Performing Lab: [facility] [place] [facility] [address] [facility] [address] [facility] [place] [facility] LIPID PANEL, NON FASTING CHOLESTERO L.TOTAL/CH OLESTEROL IN HDL [MASS RATIO] IN SERUM OR PLASMA 6.1 02/11 Specimen Type: SERUM No comment entered. Ordering Provider: ILDA HANSON Report Released Date/Time: Feb 10, 2024 03:34 PM Reporting Lab: [facility] [place] [facility] [address] [facility] [address] Performing Lab: [facility] [place] [facility] [address] [facility] [address] [facility] [place] [facility] LIPID PANEL, NON FASTING CHOLESTERO L IN HDL [MASS/VOLU ME] IN SERUM OR PLASMA 34 mg/dL 40 - 60 02/11 L Specimen Type: SERUM No comment entered. Ordering Provider: ILDA HANSON Report Released Date/Time: Feb 10, 2024 03:34 PM Reporting Lab: [facility] [place] [address] [address] Performing Lab: [place] [facility] [address] [address] [facility] LIVER FUNCTION PROTEIN [MASS/VOLU ME] IN SERUM OR PLASMA 6.8 g/dL 6.0 - 8.3 02/11 Specimen Type: SERUM No comment entered. Ordering Provider: ILDA HANSON Report Released Date/Time: Feb 10, 2024 03:34 PM Reporting Lab: [facility] [place] [place] [address] [address] Performing Lab: [place] [facility] [place] [address] [address] [facility] LIVER FUNCTION ALBUMIN [MASS/VOLU ME] IN SERUM OR PLASMA 4.0 g/dL 3.5 - 5.0 02/11 Specimen Type: SERUM No comment entered. Ordering Provider: ILDA HANSON Report Released Date/Time: Feb 10, 2024 03:34 PM Reporting Lab: [facility] [place] [address] [address] Performing Lab: [place] [facility] [place] [address] [address] [facility] LIVER FUNCTION ALKALINE PHOSPHATAS E [ENZYMATIC ACTIVITY/V OLUME] IN SERUM OR PLASMA 68 U/L 40 - 150 02/11 Specimen Type: SERUM No comment entered. Ordering Provider: ILDA HANOSN Report Released Date/Time: Feb 10, 2024 03:34 PM Reporting Lab: [place] [facility] [place] [address] [place] [address] Performing Lab: [facility] [address] [facility] [address] [facility] LIVER FUNCTION ASPARTATE AMINOTRANS FERASE [ENZYMATIC ACTIVITY/V OLUME] IN SERUM OR PLASMA 20 U/L 5 - 34 02/11 Specimen Type: SERUM No comment entered. Ordering Provider: ILDA HANSON Report Released Date/Time: Feb 10, 2024 03:34 PM Reporting Lab: [facility] [address] [facility] [address] Performing Lab: [facility] [address] [facility] [address] [facility] LIVER FUNCTION ALANINE AMINOTRANS FERASE [ENZYMATIC ACTIVITY/V OLUME] IN SERUM OR PLASMA 39 U/L 02/11 Specimen Type: SERUM No comment entered. Ordering Provider: ILDA HANSON Report Released Date/Time: Feb 10, 2024 03:34 PM Reporting Lab: [facility] [address] [facility] [address] Performing Lab: [facility] [address] [facility] [address] [facility] LIVER FUNCTION BILIRUBIN. TOTAL [MASS/VOLU ME] IN SERUM OR PLASMA 0.8 mg/dL 0.2 - 1.2 02/11 Specimen Type: SERUM No comment entered. Ordering Provider: ILDA HANSON Report Released Date/Time: Feb 10, 2024 03:34 PM Reporting Lab: [facility] [address] [facility] [address] Performing Lab: [facility] [address] [address] [facility] HEMOGLOB IN A1C PANEL HEMOGLOBIN A1C/HEMOGL OBIN.TOTAL [...] Aug 13, 2023 02:31 PM Reporting Lab: [place] [facility] [facility] [address] [facility] [address] Performing Lab: [facility] [place] [facility] [address] [facility] [address] [place] [facility] [facility] THYROID T4 FREE(FT4 ) THYROXINE (T4) FREE [MASS/VOLU ME] IN SERUM OR PLASMA 0.98 ng/dL 0.6 - 1.6 08/26 Specimen Type: SERUM No comment entered. Ordering Provider: ILDA HANSON Report Released Date/Time: Aug 13, 2023 02:31 PM Reporting Lab: [place] [facility] [facility] [address] [facility] [address] Performing Lab: [place] [facility] [place] [facility] [address] [facility] [address] [place] [facility] [facility] Vital Signs Combined list of inpatient and outpatient Vital Signs from Department of Defense and Veterans Affairs, ranging from 12 months to all on record, depending upon the facility. Vital Sign Value Date Comments Source SYSTOLIC BLOOD PRESSURE 126 06/26/20 24 09:06:55 [facility] [place] [facility] DIASTOLIC BLOOD PRESSURE 82 024 09:06:55 [facility] [place] [facility] PULSE OXIMETRY 96 06/26/2024 09:06:55 [facility] [place] [facility] PAIN 1 06/26/2024 09:06:55 [facility] [place] [facility] TEMPERATURE 98.4 06/26/2024 09:06:55 [facility] [place] [facility] PULSE 80 06/26/2024 09:06:55 [facility] [place] [facility] RESPIRATION 18 06/26/2024 09:06:55 [facility] INFRARED THERAPY [id number] Diagnos is: ICD-10- CM F41.9 Anxiety disorde r, unspeci fied
GAUNYA,CHR ISTOPHER M 01/15 [facility] En[facility] [id number] 01/15 [facility] ULTRASOUND THERAPY [id number] Diagnos is: ICD-10- CM M25.521 Pain in right elbow<b r/> MACHON,MARY LIE E 01/23 [facility] [place] [facility] Outpatient Encounter [id number] 01/29 [facility] [place] ([facility]) COMMUNITY/ WORK REINTEGRAT ION [id number] Diagnos is: ICD-10- CM Z56.0 Unemplo yment, unspeci fied
Sherwin PEREZ A 02/01 [facility] [place] [facility] [facility] Outpatient Encounter [id number] 02/06 [facility] [place] [facility] [place] [facility] ULTRASOUND THERAPY [id number] Diagnos is: ICD-10- CM M79.601 Pain in right arm<br/ > SHARANMARY LIE E 02/06 [facility] [place] Outpatient Encounter [id number] 02/11 [place] [facility] [place] [facility] ([facility]) COMMUNITY/ WORK REINTEGRAT ION [id number] Diagnos is: ICD-10- CM Z56.0 Unemplo yment, unspeci fied
Sherwin PEREZ A 02/12 [facility] [place] En[facility] [id number] 02/14 [facility] [place] [facility] OFFICE O/P EST LOW 20-29 MIN [id number] Diagnos is: ICD-10- CM M79.601 Pain in right arm<br/ > Krysten HANSON ILLIAM J 02/21 [facility] PSYTX W PT 30 MINUTES [id number] Diagnos is: ICD-10- CM F41.9 Anxiety disorde r, unspeci fied
PEGGY RAHMAN ON A 02/28 [facility] En[facility] [id number] 02/28 [facility] En[facility] [id number] 03/14 [facility] [place] [place] [facility] Outpatient Encounter [id number] 03/20 [facility] [place] [facility] ([facility]) COMMUNITY/ WORK REINTEGRAT ION [id number] Diagnos is: ICD-10- CM Z56.0 Unemplo yment, unspeci fied
ANAM ICHAEL A 03/27 [facility] [place] [facility] MANUAL THERAPY 1/> REGIONS [id number] Diagnos is: ICD-10- CM M79.601 Pain in right arm<br/ > MARY TSANG LIE E 04/02 [facility] [place] ULTRASOUND THERAPY [id number] Diagnos is: ICD-10- CM M79.601 Pain in right arm<br/ > MARY TSANG E 04/24 [facility] En[facility] [id number] 05/03 [facility] En[facility] [id number] 05/03 [facility] ULTRASOUND THERAPY [id number] Diagnos is: ICD-10- CM M79.601 Pain in right arm<br/ > MARY TSANG E 05/06 [facility] En[facility] [id number] 05/07 [facility] En[facility] [id number] 05/08 [facility] [place] [facility] EYE EXAM&TX ESTAB PT 1/>VST [id number] Diagnos is: ICD-10- CM 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
FRANKIESTEVE NatySamantha WALKERRENATO 05/27 [facility] REPAIR & ADJUST SPECTACLES [id number] Diagnos is: ICD-10- CM Z46.0 Encount er for fit/adj st of spectac les and contact lenses< br/> PAMELA SANTOS 05/31 [facility] [place] [facility] [place] [facility] ULTRASOUND THERAPY [id number] Diagnos is: ICD-10- CM M79.601 Pain in right arm<br/ > MARY TSANG LIE E 06/06 [facility] Out[facility] En[facility] [id number] 06/19 [facility] En[facility] [id number] 06/21 [facility] TUBING WITH HEATING ELEMENT [id number] Diagnos is: ICD-10- CM G47.33 Obstruc tive sleep apnea (adult) (pediat chris)
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
STEVE DAVID 07/12 [facility] SELF-HELP/ PEER SVC PER 15MIN [id number] Diagnos is: ICD-10- CM 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 tivity disorde r, predom inatten tive type
ADI GE 07/15 [facility] En[facility] [id number] 07/25 [facility] [place] OT EVAL LOW COMPLEX 30 MIN [id number] Diagnos is: ICD-10- CM S66.911 S Strain of unsp musc/fa sc/tend at wrs/hnd lv, r hand, sequela
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
Krysten HANSON J 08/26 [facility] [place] [facility] OFFICE O/P NEW SF 15 MIN [id number] Diagnos is: ICD-10- CM M77.41 Metatar salgia, right foot
Brian PERDUE AVID 08/27 [facility] [place] [facility] [place] Outpatient Encounter [id number] 08/28 [facility] [place] [facility] [place] PSYTX W PT 30 MINUTES [id number] Diagnos is: ICD-10- CM 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 tivity disorde r, predom inatten tive type
PEGGY RAHMAN ON A 08/30 [facility] [place] [facility] MTMS BY PHARM ADDL 15 MIN [id number] Diagnos is: ICD-10- CM F41.9 Anxiety disorde r, unspeci fied
MATT GALVAN 09/02 [facility] [place] [facility] [place] MTMS BY PHARM ADDL 15 MIN [id number] Diagnos is: ICD-10- CM F41.9 Anxiety disorde r, unspeci fied
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<br/ > LENTRICIA,ESVIN 11/05 [facility] [place] [facility] Outpatient Encounter [id number] INGRID CHAMORRO 11/07 [facility] [place] [facility] [place] [facility] Outpatient Encounter [id number] INGRID CHAMORRO 11/11 [facility] [place] [facility] Outpatient Encounter [id number] 11/20 [facility] Outpatient Encounter [id number] 11/20 [facility] [place] [facility] Outpatient Encounter [id number] 11/21 [place] [facility] [place] [facility] [place] [facility] OFF/OP EST MAY X REQ PHY/QHP [id number] Diagnos is: ICD-10- CM 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
BRANDOMAIE 11/25 [facility] [place] [facility] Outpatient Encounter [id number] 11/28 [facility] THERAPEUTI C EXERCISES [id number] Diagnos is: ICD-10- CM M79.601 Pain in right arm<br/ > MACHON,MARY LIE E 12/02 [facility] OFFICE O/P EST MOD 30 MIN [id number] Diagnos is: ICD-10- CM M77.41 Metatar salgia, right foot
ITLA ESPOSITO D 12/04 [facility] THERAPEUTI C EXERCISES [id number] Diagnos is: ICD-10- CM M79.601 Pain in right arm<br/ > MARY TSANG LIE E 12/09 [facility] THERAPEUT[facility] EXERCISES [id number] Diagnos is: ICD-10- CM M79.601 Pain in right arm<br/ > MARY TSANG LIE E 12/16 [facility] THERAPEUTI [facility] EXERCISES [id number] Diagnos is: ICD-10- CM M79.601 Pain in right arm<br/ > MARY TSANG LIE E 12/23 [facility] Out[facility] Encounter [id number] INGRID CHAMORRO 12/24 [facility] En[facility] [id number] SUSY MALDONADOUS 12/24 [facility] OFF/OP EST DECEMBER X REQ PHY/QHP [id number] Diagnos is: ICD-10- CM Z04.9 Encount er for examina tion and observa tion for unsp reason< br/> Sherwin SRTEETER H 12/31 [facility] MANUAL THERAPY /> [place] [id number] Diagnos is: ICD-10- CM M79.601 Pain in right arm<br/ > MARY TSANG LIE E 01/06 [facility] MTMS BY PHARM ADDL 15 MIN [id number] Diagnos is: ICD-10- CM F41.9 Anxiety disorde r, unspeci fied
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<br/ > INGRID CHAMORRO 01/20 [facility] Encounter [id number] 01/20 [facility] OFFICE O/P EST LOW 20 MIN [id number] Diagnos is: ICD-10- CM K11.21 Acute siaload enitis< br/> STEVE DAVID 01/20 [facility] En[facility] [id number] 02/18 [facility] POS AIRWAY PRESSURE FILTER [id number] Diagnos is: ICD-10- CM G47.33 Obstruc tive sleep apnea (adult) (pediat chris)
ELY MARTI 02/23 [facility] En[facility] [id number] 04/24 [facility] En[facility] [id number] 1.04/24 [facility] OFFICE O/P EST LOW 20 MIN [id number] Diagnos is: ICD-10- CM K21.9 Gastro- esophag eal reflux disease without esophag itis
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
STEVE DAVID 04/29 [facility] Encounter [id number] 05/03 [facility] Encounter [id number] 05/04 [facility] Encounter [id number] 05/06 [facility] Encounter [id number] 05/06 [facility] Encounter [id number] 1.05/13 [facility] OFF/OP EST MAY X REQ PHY/QHP [id number] Diagnos is: ICD-10- CM 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<br/ > CIARADIRKINGRID JOHNSTON 05/13 [facility] [id number] 1.05/15 [facility] Encounter [id number] 1.05/15 [facility] Encounter [id number] 1.05/19 [facility] Encounter [id number] 1.05/22 [facility] OFF/OP CNSLTJ NEW/EST LOW 30 [id number] Diagnos is: ICD-10- CM D18.01 Hemangi ghassan of skin and subcuta neous tissue< br/> GO,CAITIE S 05/22 [facility] INTMD RPR S/A/T/EXT 2.5 CM/< [id number] Diagnos is: ICD-10- CM D48.5 Neoplas m of uncerta in behavio r of skin
GO,CAITIE S 05/29 [facility] En[facility] [id number] 05/29 [facility] Out[facility] Encounter [id number] 05/29 [facility] Encounter [id number] MAGDALENA STOCKTON MD 06/02 [facility] POSTOP FOLLOW-UP VISIT [id number] Diagnos is: ICD-10- CM D18.01 Hemangi ghassan of skin and subcuta neous tissue< br/> CAITIE DONG 06/05 [facility] Encounter [id number] 06/05 [facility] Out[facility] Encounter [id number] 06/05 [facility] OFFICE O/P EST LOW 20 MIN [id number] Diagnos is: ICD-10- CM R10.30 Lower abdomin al pain, unspeci fied
Krysten HANSON 06/05 [facility] En[facility] [id number] 06/06 [facility] Out[facility] Encounter [id number] 06/07 [facility] Out[facility] Encounter [id number] 06/11 [facility] OFF[facility] O/P EST LOW 20 MIN [id number] 1. Diagnos is: ICD-10- CM L60.3 Nail dystrop hy
TILA ESPOSITO RLES D 06/18 [facility] Encounter [id number] 1.06/18 [facility] MTMS BY PHARM ADDL 15 MIN [id number] Diagnos is: ICD-10- CM 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 tivity disorde r, predom inatten tive type
MATT GALVAN 06/18 [facility] Out[facility] Encounter [id number] 06/22 [facility] Out[facility] Encounter [id number] 06/22 [facility] QNHP OL DIG ASSMT&MGMT 06-24 [id number] 1. 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
CHAUDHARI,HECTOR 06/24 [facility] OFFICE O/P EST MOD 30 MIN [id number] Diagnos is: ICD-10- CM L60.0 Ingrowi ng nail
TILA ESPOSITO RLES D 06/26 [facility] Out[facility] Encounter [id number] 06/26 [facility] Outpatient Encounter [id number] 06/29 [facility] Outpatient Encounter [id number] 06/29 [facility] Outpatient Encounter [id number] 06/30 [facility] POSTOP FOLLOW-UP VISIT [id number] Diagnos is: ICD-10- CM L60.0 Ingrowi ng nail
TILA ESPOSITO D 07/13 [facility] Outpatient Encounter [id number] 07/15 [facility] Social History Combined list of available smoking, tobacco, and other social history from Department of Defense and Veterans Affairs facilities. Social History Type Response Date Comment Source Tobacco smoking status [facility] VA-TOBACCO FORMER USER 08/26/2023 [facility] History of tobacco use [place] 15 YRS [place] MORE 08/26/2023 [place] [facility] History of tobacco use [place]-TOBACCO FORMER USER 04/11/2022 [facility] History of tobacco use TOBACCO [...] use QUIT TOBACCO >7 YEARS AGO 07/04/2012 [place] History of tobacco use TOBACCO USE MISDIAGNOSIS 02/11/2012 [place] History of tobacco use TOBACCO CURRENT USER 12/08/2011 [facility] History of tobacco use LIFETIME NON-USER OF TOBACCO 11/08/2010 [place] History of tobacco use LIFETIME NON-USER OF TOBACCO 07/22/2009 [place] History of tobacco use LIFETIME NON-SMOKER/TOBACCO USER 07/18/2006 [facility] History of tobacco use CURRENT SMOKER 03/25/2006 reducing use on own. BERNIE GARLAND [facility] History of tobacco use LIFETIME NON-TOBACCO USER 09/21/2005 [facility] History of tobacco use LIFETIME NON-TOBACCO USER 09/20/2005 [facility] History of tobacco use LIFETIME NON-SMOKER/TOBACCO USER 09/07/2005 [facility] History of tobacco use LIFETIME NON-SMOKER/TOBACCO USER 06/14/2005 [facility] History of tobacco use LIFETIME NON-SMOKER/TOBACCO USER 03/21/2005 [facility] History of tobacco use LIFETIME NON-TOBACCO USER 12/07/2004 [facility] History of tobacco use TOBACCO PREVIOUS USER 08/14/2004 [facility] History of tobacco use TOBACCO NEVER USED 03/01/2000 [facility] Plan of Care List of future care activities from [facility] facilities. Additional future care activities may be listed in the Assessment and Plan section. Date/Time Care Activity Care Activity Detail Facili ty 07/22/2024 AMBULATORY - MEDICINE [facility] 10/15/2024 AMBULAT[facility] - MEDIC[facility] 06[facility]03/2024 Consult Order DERMATOLOGY/[facility] (OUTPT) Cons Basket [facility] 06/18/2024 Laboratory - Contact Lens Cutter ry Order DRUGS OF ABUSE URINE (DRUG) [facility] 06/30/2024 Consult Order COMMUNITY CARE-B H PSYCHOTHERAPY Cons Basket [facility] Advance Directives List of completed, amended, or rescinded Advance Directives on record at [facility] facilities. An actual copy of the Directive is not included. Date Advance Directive Provider Source 05/16/2011 ADVANCE DIRECTIVE DISCUSSION TON SARAVIA 09/27/2005 ADVANCE DIRECTIVE SHARLENE SIDHU [facility] 09/10/2005 ADVANCE DIRECTIVE DISCUSSION FRANCE RODRIGEZ [facility] 08/14/2004 ADVANCE DIRECTIVE DISCUSSION [place]
== END 2024-07-17 17:31 | disposition left against medical advice (07) ==
PROVIDERS: Emergency Provider Emergency Medicine
DX: Z53.21 Procedure and treatment not carried out due to patient leaving prior to being seen by health care provider (principal)

== ENCOUNTER 2024-10-20 09:21 | Outpatient (AMB) | payer OTHER, SELFPAY ==
--- NOTE | 2024-10-20 09:22 | MHC.OFFVIS ---
Intake Visit Reasons: Benign lipomatous neoplasm Intake Note: [facility]. Not sure how long is been present. Patient c/o: noticed sensitive area on lower back after kidney surgery. Solutions Development Analyst Required: No Solutions Development Analyst Services: Solutions Development Analyst Offered & Declined Accompanied by: Self / Same As Patient Allergies No Known Allergies Allergy (Verified 10/20/24 09:26) HPI Comments Details: Patient presents for evaluation of a right flank soft tissue mass. He has had this indeterminate time. He has had nonspecific back issues and is unsure if this is related to them. He was referred here by his medical doctor. He has no such masses or lesions elsewhere. Patient was a collection of other constitutional symptoms or complaints but nothing regarding soft tissue masses. Chart was reviewed and patient evaluated [facility] Medical History (Updated 04/10/21 @ 14:24 by Candy Barahona) Hiatal hernia Social History (Updated 10/20/24 @ 09:28 by FAB Presley) Patient Tobacco Use Status: Never used Tobacco Physical Exam Back/Spine/Pelvis Other: Patient was a roughly 3 x 2 cm right mid lateral back/flank soft tissue mass consistent with either a sebaceous cyst or a lipoma. Assessment & Plan Assessment & Plan (1) Soft tissue mass: Code(s): M79.89 - 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ed soft tissue disorders Category: Surgical Plan Therapeutic options reviewed with the patient which include observation or excision. At present, he would like to consider these and will contact me should he wished to pursue excision. All questions answered. Patient otherwise follow-up p.r.n.. Coding Level of Care Code New Pt Level 4 (53289) Diagnoses Soft tissue mass M79.89
--- OUTSIDE RECORDS SUMMARY | 2024-10-20 10:08 | XMS_ITS | Clinical Summary ---
Author Organization [facility] Address [address] [place] [address] Care Team Providers Care Security Solutions Engineer Name Role Phone Unavailable Primary Care Provider Unavailabl e Encounters Date Type Department Care Team Description 08/04/2024 Lab Requisition [facility] - Main Lab [address] [facility] [place] [address] Anna Sterling PA Calculus of ureter from Last 3 Months Social History Tobacco Use Types Packs/Day Years Used Date Smoking Tobacco: Never Assessed Sex and Gender Information Value Date Recorded Sex Assigned at Not on file Legal Sex Male 11:01 AM EDT Gender Identity Not on file Sexual Orientation Not on file Plan of Treatment Health Maintenance Due Date Last Done Comments DTaP,Tdap,and Td Vaccines (1 - Tdap) 1996 Hepatitis B Vaccines (1 of 3 - 19+ 3-dose series) 1996 COVID-19 Vaccine (2023-2 5 season) 2024 Influenza Vaccine (#1) 2024 Cholesterol Screening (Lipid Panel) 05/31/2024 Colorectal Cancer Screening: Colonoscopy 05/31/2024 Depression Screening 05/31/2024 HIV Screening 05/31/2024 Hepatitis C Screening 05/31/2024 Social Influencers of Health Screening 05/31/2024 HIB Vaccines Aged Out No longer eligi ble based on patient's age to complete this topic HPV Vaccines Aged Out No longer eligi ble based on patient's age to complete this topic Hepatitis A Vaccines Aged Out No long er eligible based on patient's age to complete this topic IPV Vaccines Aged Out No longer eligi ble based on patient's age to complete this topic MMR Vaccines Aged Out No longer eligi ble based on patient's age to complete this topic Meningococcal ACWY Vaccine Aged Out N o longer eligible based on patient's age to complete this topic Meningococcal B Vacine Aged Out No lo nger eligible based on patient's age to complete this topic Pneumococcal Vaccine: Pediat rics (0 to 5 Years) and At-Risk Patients (6 to 64 Years) Aged Out No longer eligible b ased on patient's age to complete this topic RSV Immunization Patients Un nate 20 months Aged Out No longer eligible b ased on patient's age to complete this topic Varicella Vaccines Aged Out No longer eligible based on patient's age to complete this topic Procedures Procedure Name Priority Date/Time Associated Diagnosis Comments BACTERIAL IDENTIFICATION AND SUSCEPTIBILITY, AEROBIC Routine 08/03/2024 12:00 AM EST Calculus of ureter from Last 3 Months Results * (ABNORMAL) Bacterial identification and susceptibility, aerobic (08/03/2024 12:00 AM EST) Culture, Bacterial ID and Sensitivity Escherichia coli(A) EVIN 08/05/2024 9:13 AM EST [facility] Comment: This is an edited result. Previous organism was Gram negative bacilli on 08/04/2024 at 1102 EST. Culture, Bacterial ID and Sensitivity Klebsiella aerogenes(A) EVIN 08/05/2024 9:13 AM EST [facility] Comment: The organism value for this result has been updated. These results have been appended to the previously preliminary verified report. This is an edited result. Previous organism was Gram negative bacilli on 08/05/2024 at 0753 EST. Culture, Bacterial ID and Sensitivity Enterococcus faecalis(A) EVIN 08/05/2024 9:13 AM EST [facility] Comment: The organism value for this result has been updated. These results have been appended to the previously preliminary verified report. Edited result: Previously reported as Enterococcus species on 08/05/2024 at 0753 EST. Other Urine specimen from urethra / Unknown 08/03/2024 08/04/2024 10:22 AM EST Narrative Organism Antibiotic Method Susceptibility Escherichia coli Amoxicillin/Clavulanate EVIN <=2 ug/ml: Susceptible Escherichia coli Ampicillin/Sulbactam EVIN <=2 ug/ml: Susceptible Escherichia coli Piperacillin/Tazobactam EVIN <=4 ug/ml: Susceptible Escherichia coli Cefazolin (Urine) EVIN <=1 ug/ml: Susceptible Escherichia coli Cefoxitin EVIN <=4 ug/ml: Susceptible Escherichia coli Ceftazidime EVIN <=0.5 ug/ml: Susceptible Escherichia coli Ceftriaxone EVIN <=0.25 ug/ml: Susceptible Escherichia coli Cefepime EVIN <=0.12 ug/ml: Susceptible Escherichia coli Meropenem EVIN <=0.25 ug/ml: Susceptible Escherichia coli Amikacin EVIN 4 ug/ml: Susceptible Escherichia coli Gentamicin EVIN <=1 ug/ml: Susceptible Escherichia coli Ciprofloxacin EVIN <=0.06 ug/ml: Susceptible Escherichia coli Levofloxacin EVIN <=0.12 ug/ml: Susceptible Escherichia coli Nitrofurantoin EVIN <=16 ug/ml: Susceptible Escherichia coli Trimethoprim/Sulfamethoxazole EVIN <=20 ug/ml: Susceptible Klebsiella aerogenes Amoxicillin/Clavulanate EVIN >=32 ug/ml: Resistant Klebsiella aerogenes Cefoxitin EVIN >=64 ug/ml: Resistant Klebsiella aerogenes Ceftazidime EVIN <=0.5 ug/ml: Susceptible Klebsiella aerogenes Ceftriaxone EVIN <=0.25 ug/ml: Susceptible Klebsiella aerogenes Cefepime EVIN <=0.12 ug/ml: Susceptible Klebsiella aerogenes Amikacin EVIN <=1 ug/ml: Susceptible Klebsiella aerogenes Gentamicin EVIN <=1 ug/ml: Susceptible Klebsiella aerogenes Ciprofloxacin EVIN <=0.06 ug/ml: Susceptible Klebsiella aerogenes Levofloxacin EVIN <=0.12 ug/ml: Susceptible Klebsiella aerogenes Nitrofurantoin EVIN 64 ug/ml: Intermediate Klebsiella aerogenes Trimethoprim/Sulfamethoxazole EVIN <=20 ug/ml: Susceptible Enterococcus faecalis Benzylpenicillin EVIN 4 ug/ml: Susceptible Enterococcus faecalis Ampicillin EVIN <=2 ug/ml: Susceptible Enterococcus faecalis Ciprofloxacin EVIN <=0.5 ug/ml: Susceptible Enterococcus faecalis Levofloxacin EVIN 1 ug/ml: Susceptible Enterococcus faecalis Linezolid EVIN 2 ug/ml: Susceptible Enterococcus faecalis Vancomycin EVIN 1 ug/ml: Susceptible Enterococcus faecalis Tetracycline EVIN >=16 ug/ml: Resistant Enterococcus faecalis Nitrofurantoin EVIN <=16 ug/ml: Susceptible [facility] MICROBIOLOGY - GENERAL ORDER CHANTELLE Final Result [facility] [address] [place] [address], [place] [phone] from Last 3 Months Insurance MEDICAID - [place] [facility]
--- OUTSIDE RECORDS SUMMARY | 2024-10-20 10:08 | XMS_ITS ---
Author Name [facility] [place] Address [address] [place] [address] Care Team Providers Care Radio Survey Worker Name Role Phone LORETTA HANSON Primary [...] [place] H Aug 05, 2021 01 [id number] ELVIN WALSH PATIENT Selected Encounter This section [...] AM PRIMARY 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ed counseling INES [facility] [place] [facility] Plan of Treatment: Future Appointments (+ 6 months) and Future Tests (+/- 45 days) The Plan of Treatment section includes future care activities for the patient from all [place] [facility]. This section includes future appointments and future [...] - MEDICINE [facility] [facility] [place] Apr 29, 2024 01:00 PM AMBULATORY - MEDICINE [facility] [place] [facility] [place] Apr 29, 2024 02:00 PM AMBULATORY - MEDICINE [facility] [place] [facility] [place] May 13, 2024 09:30 AM AMBULATORY - MEDICINE [facility] [place] [facility] [place] May 21, 2024 11:00 AM AMBULATORY - MEDICINE [facility] [place] [facility] [place] May 22, 2024 01:30 PM AMBULATORY - MEDICINE [facility] [place] [facility] [place] May 29, 2024 02:00 PM AMBULATORY - MEDICINE [facility] [place] [facility] [place] Jun 05, 2024 10:00 AM AMBULATORY - MEDICINE [facility] [place] [facility] [place] Jun 05, 2024 02:00 PM AMBULATORY - MEDICINE [facility] [place] [facility] [place] Jun 05, 2024 02:45 PM AMBULATORY - NONE [facility] [place] [facility] [place] Jun 17, 2024 08:00 AM AMBULATORY - PSYCHIATRY [facility] [place] [place] [facility] [place] Jun 18, 2024 08:30 AM AMBULATORY - MEDICINE [facility] [place] [facility] [place] Jun 18, 2024 11:00 AM AMBULATORY - PSYCHIATRY [facility] [place] [facility] [place] Jun 26, 2024 09:00 AM AMBULATORY - MEDICINE [facility] [place] [facility] [place] Jul 13, 2024 09:00 AM AMBULATORY - MEDICINE [facility] [place] [facility] [place] Active, Pending, and Scheduled Orders This section includes a listing of several types of active, pending, and scheduled orders, including clinic medications orders, diagnostic test orders, procedure orders and consult orders; where the start date of the order is 45 days before the date of the Encounter or 45 days after the date of theEncounter. The data comes from all [place] treatment facilities. Test Date/Time Test Type Test Details Facility Name Jan 21, 2024 12:00 AM Laboratory - Chemi stry Order OCCULT BLOOD FIT X1 SCREEN(IN-HOUSE) STOOL FECES SP [facility] Lab Results: +/- 30 days [...] Range Comment Feb 12, 2024 08:41 AM [facility] LIPID PANEL, NON FASTING Specimen Type: SERUM No comment entered. Ordering Provider: MAR HANSON Report Released Date/Time: Feb 10, 2024 03:34 PM Reporting Lab: [address] [address] Performing Lab: [address] [address] CHOLESTEROL 209 mg/dL H TRIGLYCERIDE 121 mg/dL 0-150 LDL calculated 151 mg/dL H 0-129 CHOL/HDL 6.1 HDL CHOLESTEROL 34 mg/dL L 40-60 Feb 12, 2024 08:41 AM [facility] CBC Specimen Type: BLOOD No comment entered. Ordering Provider: MAR HANSON Report Released Date/Time: Feb 10, 2024 03:34 PM Reporting Lab: [address] [address] Performing Lab: [address] [address] WBC 7.42 10*3/uL 4.50-11.00 RBC 5.66 10*6/uL 4.23-5.66 HGB 16.0 g/dL 12.8-17 HCT 46.9 39.2-50.4 MCV 82.9 fL 82-99 MCHC 34.1 g/dL 30.8-35.1 PLT 223 10*3/uL 140-360 RDW-CV 12.7 12.0-16.0 MCH 28.3 pg 26.2-32.6 Feb 12, 2024 08:41 AM [facility] LIVER FUNCTION Specimen Type: SERUM No comment entered. Ordering Provider: MAR HANSON Report Released Date/Time: Feb 10, 2024 03:34 PM Reporting Lab: [address] [address] Performing Lab: [address] [address] PROTEIN,TOTAL 6.8 g/dL 6.0-8.3 ALBUMIN 4.0 g/dL 3.5-5.0 ALKALINE PHOSPHATASE 68 U/L 40-150 AST 20 U/L 5-34 ALT 39 U/L BILIRUBIN, TOTAL 0.8 mg/dL 0.2-1.2 Feb 12, 2024 08:41 AM [facility] BASIC METABOLIC PANEL (non-fasting) Specimen Type: SERUM No comment entered. Ordering Provider: MAR HANSON Report Released Date/Time: Feb 10, 2024 03:34 PM Reporting Lab: [address] [address] Performing Lab: [address] [address] UREA NITROGEN 19 mg/dL 7-25 GLUCOSE 92 [...] 10:50 AM 98 102 126/80 16 3 [facility] Social History: Smoking Status (Most current) and Tobacco Use (All prior to encounter date) This section includes the most current, and the historical, smoking and tobacco- related health factors from the [place] facility where the Encounter took place. Current Smoking Status This section includes the most current smoking, or tobacco-related health factor, from the [place] facility where the Encounter took place. Date/Time Current Smoking Status Comment Facil ity Aug 26, 2023 10:00 AM [place]-TOBACCO FORMER USER [facility] Tobacco Use History This section includes a history of the smoking, or tobacco-related health factors, that were collected on or before the date of the Encounter. The data comes from the [place] facility where the Encounter took place. Date/Time Smoking Status/Tobacco Use Comment F acility Aug 26, 2023 10:00 AM [place]-TOBACCO QUIT 15 YRS OR MORE [facility] Apr 11, 2022 11:00 AM [place]-TOBACCO FORMER [facility]ER [facility] Apr 11, 2022 11:00 AM [place]-TOBACCO QUIT 15 YRS OR MORE [facility] Advance Directives: All historical and [...] 2005 ADVANCE DIRECTIVE SHARLENE [facility] Sep 10, 2005 ADVANCE DIRECTIVE DISCUSSION FRANCE RODRIGEZ [facility] Aug 14, 2004 ADVANCE DIRECTIVE [...] the Encounter. The data comes from all [place] treatment facilities. Date/Time Radiology Report Provider Source Jan 21, 2024 11:02 AM MANDIBLE LESS THAN 4 VIEWS: ELVIN REYNA [id number] -1975 M Exm Date: JAN 21, 2024@11:02 Req Phys: GANGA DAVID Pat Loc: CWM/NO/SICK CALL PA (Req'g Loc Img Loc: NHM/BUILDING 1 Service: Unknown [facility] [place] [facility] , (Case [id number] COMPLETE) MANDIBLE LESS THAN 4 VIEWS (RAD Detailed) CPT:32161 Reason for Study: SWELLING AND PAIN Clinical History: R/O MASS Report Status: Verified Date Reported: JAN 21, 2024 Date Verified: JAN 21, 2024 Electronic Gluer E-Sig: Report: PROCEDURE: Stat mandible 3 images [...] Recommend CT/MRI. READING PHYSICIAN: Maged Pastor M.D. -[id number] 01/21/2024 12:15 EDT [facility] National Teleradiology Program [phone] (For Medical Practitioner Use Only) Attention Patients / Veterans: If you have questions or concerns about these test results, please contact your ordering provider or primary care team. Primary Diagnostic Code: SIGNIFICANT ABNORMALITY, ATTN NEEDED Primary Interpreting Staff: RADIOLOGY,OUTSIDE SERVICE, Staff Physician / RADIOLOGY,OUTSIDE SERVICE [place] [facility] [place] Encounter Notes: All associated encounter notes This section contains the clinical notes associated to the Encounter. Date/Time Encounter Note(s) Provider Source Jan 21, 2024 10:34 AM PRIMARY CARE OUTPATIENT NOTE: LOCAL TITLE: AMBULATORY/OUTPATIENT CARE NOTE STANDARD TITLE: PRIMARY CARE OUTPATIENT NOTE DATE OF NOTE: JAN 21, 2024@10:34 ENTRY DATE: JAN 21, 2024@10:34:21 AUTHOR: INGRID CHAMORROIGNER: URGENCY: STATUS: COMPLETED F: Walk In D/A: Vet presents to primary care for left jaw pain for the past several days. Vet seen in [place] 12/31 for left ear issues, prescribed Cetirizine [...] surrounding skin. Vet afebrile today. Conferred with [place] provider who orders imaging, Vet will return after completed. R: Vet to see [place] provider today Reminders completed today include: Advance Directive Screen AD: Patient does not have a completed advance directive on file at any facility, [place] or outside. S/he is not interested in [...] full rights to use it throughout the [place] system. PRIMARY SCREEN RESULT: The Primary Screen [...] RN Signed: 01/21/2024 10:58 INGRID CHAMORRO [facility]
--- OUTSIDE RECORDS SUMMARY | 2024-10-20 10:08 | XMS_ITS ---
Author Name [place] Address [address] [place] [address] Care Team Providers Care Bookkeeper Receptionist Name Role Phone LORETTA HANSON Primary Care [...] Gonzalez's Name Patient's Relationship to Policy Gonzalez [facility] MEDICAID [facility] Aug 05, 2021 01 [id number] ELVIN WALSH PATIENT Selected Encounter This section includes the information on record at [place] for the Encounter. Date/Time Encounter Type Encounter Description Reason Provider Source Jun 26, 2024 09:00 AM OFFICE O/P EST MOD 30 MIN PODIATRY ICD-10-CM L60.0 Ingrowing CYNTHIA Pfeiffer Zahra Encounter Template Text not used by [place] Assessments - Encounter Diagnoses This section includes the primary and secondary diagnoses documented for the Encounter. Date/Time Primary/Secondary Diagnosis Diagnosis Name Provider Source Jun 26, 2024 02:46 PM PRIMARY Ingrowing CYNTHIA Pfeiffer [facility] [place] [facility] Plan of Treatment: Future Appointments (+ 6 months) and Future Tests (+/- 45 days) The Plan of Treatment section includes future care activities for the patient from all [place] [facility]. This section includes future appointments and future orders which are active, pending or scheduled. Future Appointments This section includes appointments that were scheduled to occur 6 months from the date of the Encounter, up to a maximum of 20 appointments. The data comes from all [place] treatment facilities. Appointment Date/Time Appointment Type Appointme nt Facility Name Jul 13, 2024 09:00 AM AMBULATORY - MEDICINE [facility] [place] [facility] Jul 23, 2024 11:30 AM AMBULATORY - MEDICINE [facility] [place] [facility] Aug 03, 2024 01:00 PM AMBULATORY - MEDICINE [facility] [facility] Aug 06, 2024 02:30 PM AMBULATORY - MEDICINE [facility] [place] [facility] Aug 14, 2024 11:30 AM AMBULATORY - MEDICINE [facility] [facility] Sep 02, 2024 01:00 PM AMBULATORY - SURGERY [place] [facility] Sep 02, 2024 01:00 PM AMBULATORY - MEDICINE [facility] [place] [facility] Sep 03, 2024 03:00 PM AMBULATORY - MEDICINE [facility] [place] [facility] Sep 14, 2024 10:30 AM AMBULATORY - NONE [facility] [place] [facility] Sep 28, 2024 10:30 AM AMBULATORY - MEDICINE [facility] [place] [facility] Sep 30, 2024 02:30 PM AMBULATORY - MEDICINE [facility] [place] [facility] Oct 05, 2024 03:00 PM AMBULATORY - MEDICINE [facility] [place] [facility] Oct 13, 2024 02:15 PM AMBULATORY - REHAB MEDICIN E [facility] [place] [facility] Oct 15, 2024 10:00 AM AMBULATORY - MEDICINE [facility] [place] [facility] Oct 16, 2024 11:30 AM AMBULATORY - REHAB MEDICIN E [facility] [facility] Oct 19, 2024 04:00 PM AMBULATORY - REHAB MEDICIN E [facility] [place] [facility] Oct 20, 2024 09:30 AM [facility] Oct 27, 2024 02:30 PM AMBULATORY - SURGERY [facility] Dec 01, 2024 03:00 PM AMBULATORY - MEDICINE [facility] Active, Pending, and Scheduled Orders This section includes a listing of several types of active, pending, and scheduled orders, including clinic medications orders, diagnostic test orders, procedure orders and consult orders; where the start date of the order is 45 days before the date of the Encounter or 45 days after the date of theEncounter. The data comes from all [place] treatment facilities. Test Date/Time Test Type Test Details Facility Name Jun 03, 2024 12:30 PM Consult Order DERMATOLOG Y/NHM (OUTPT) Cons [place] [facility] Jun 18, 2024 12:00 AM Laboratory - Chemi stry Order DRUGS OF ABUSE URINE (DRUG) SP [facility] Jul 23, 2024 12:00 AM Laboratory - Chemi stry Order PTH INTACT BLOOD (RED-PLAIN) SERUM SP [facility] Lab Results: +/- 30 days of the encounter This section includes the Chemistry and Hematology Lab Results on record with [place] for the patient. Radiology Reports and Pathology Reports are provided separately, in subsequent sections. Lab Results This section contains the Chemistry/Hematology Results that were resulted 30 days before or 30 daysafter the date of the Encounter. Date/Time Source Result Type Result - Unit Interpretation Reference Range Comment Jun 05, 2024 02:[address] [facility] [address]/GC DNA PANEL(IN-HOUSE) Specimen Type: URINE Comment: Test performed on the ID Watchdog Genexpert. A negative test results does not exclude the possibility of infection because results may be affected by improper specimen collection, concurrent antibiotic therapy, or the number of organisms in the specimen which may be below the sensitivity of the test. Ordering Provider: MAR HANSON Report Released Date/Time: Jun 05, 2024 02:02 PM Reporting Lab: [address] [address] Performing Lab: [address] [address] GC PCR NOT DETECTED Not Detected CT PCR NOT DETECTED Not Detected Jun 05, 2024 02:23 PM [facility] MICROSCOPIC AUTOMATED, URINE Specimen Type: URINE Comment: If Glucose = >500 and Ketones are positive, please alert the Physician. Ordering Provider: MAR HANSON Report Released Date/Time: Jun 05, 2024 02:02 PM Reporting Lab: [address] [address] Performing Lab: [address] [address] UA WBC 0-5 /[HPF] 0-5 UA MUCUS FEW /[LPF] Trace UA RBC 11-20 /[HPF] H 0-3 Jun 05, 2024 02:23 PM [facility] URINALYSIS CLEAN CATCH Specimen Type: URINE Comment: If Glucose = >500 and Ketones are positive, please alert the Physician. Ordering Provider: MAR HANSON Report Released Date/Time: Jun 05, 2024 02:02 PM Reporting Lab: [address] [address] Performing Lab: [address] [address] UA COLOR Light-Yellow Yellow UA APPEARANCE Clear [...] AM 98.4 80 126/82 18 96 1 [facility] Social History: Smoking Status (Most current) and Tobacco Use (All prior to encounter date) This section includes the most current, and the historical, smoking and tobacco- related health factors from the [place] facility where the Encounter took place. Current Smoking Status This section includes the most current smoking, or tobacco-related health factor, from the [place] facility where the Encounter took place. Date/Time Current Smoking Status Comment Facil ity Aug 26, 2023 10:00 AM [place]-TOBACCO QUIT 15 YRS OR MORE [facility] Tobacco Use History This section includes a history of the smoking, or tobacco-related health factors, that were collected on or before the date of the Encounter. The data comes from the [place] facility where the Encounter took place. Date/Time Smoking Status/Tobacco Use Comment F acility Aug 26, 2023 10:00 AM [place]-TOBACCO QUIT 15 YRS OR MORE [facility] Apr 11, 2022 11:00 AM [place]-TOBACCO FORMER USER [facility] Apr 11, 2022 11:00 AM [place]-TOBACCO QUIT 15 YRS OR MORE [facility] Advance Directives: All historical and current Section Date Range: From patient's date of to the date document was created. This section includes ALL of a patient's completed or amended [place] Advance and Rescinded Directives. The entries below indicate that a directive exists for the patient, but an actual copy is not included with this document. The data comes from all [facility]. Date Advance Directives Provider Source May 16, 2011 ADVANCE DIRECTIVE DISCUSSION TON SARAVIA Sep 27, 2005 ADVANCE DIRECTIVE [facility] Sep 10, 2005 ADVANCE DIRECTIVE DISCUSSION FRANCE RODRIGEZ [facility] Aug 14, 2004 ADVANCE DIRECTIVE [...] the Encounter. The data comes from all [place] treatment facilities. Date/Time Radiology Report Provider Source Jun 05, 2024 02:[address] ABDOMEN AND PELVIS WITHOUT CONT.: ELVIN REYNA [id number] -1975 M Ex Date: JUN 05, 2024@14:27 Req Phys: LORETTA HANSON Loc: CWM/NO/PACT 7 (Req'g Loc) Img Loc: NHM/CT Service: Unknown [place] [facility] [place] [address] (Case [id number] COMPLETE) CT ABDOMEN AND PELVIS WITHOUT CON(CT Detailed) CPT:38010 Reason for Study: lower abdominal pain Clinical History: h/o kidney stone, having worsening pain Report Status: Verified Date Reported: JUN 07, 2024 Date Verified: JUN 07, 2024 Marzipan Molder E-Sig: Report: CT ABDOMEN AND PELVIS WITHOUT CONT. HISTORY: lower abdominal pain COMPARISON: 11/28/2091. TECHNIQUE: CT of the abdomen and pelvis with multiplanar reformats was performed at the local [place] facility. 497 images were received by the [place] National Teleradiology Program (NTP) for interpretation. RADIATION [...] read-back verification. READING PHYSICIAN: Rashida Hawk MD -[phone] 06/07/2024 6:44 PST [facility] National Teleradiology Program [phone] (For Medical Practitioner Use Only) Attention Patients / Veterans: If you have questions or concerns about these test results, please contact your ordering provider or primary care team. Primary Diagnostic Code: CRITICAL ABNORMALITY Primary Interpreting Staff: RADIOLOGY,OUTSIDE SERVICE, Staff Physician / RADIOLOGY,OUTSIDE SERVICE [facility] Pathology Reports: +/- 30 days of [...] the Encounter. The data comes from all [place] treatment facilities. Date/Time Pathology Report Provider Source Jun 05, 2024 02:23 PM LR MICROBIOLOGY REPORT: Reporting Lab: [facility] [CLIA# [id number]] [address] [place] [id number] Accession [UID]: [id number] [[id number]] Received: Jun 05, 2024@14:23 Collection sample: URINE CLEAN CATCH Collection date: Jun 05, 2024 14:23 Site/Specimen: URINE Provider: LORETTA HANSON Test(s) ordered: URINE CULTURE(MWROX).......... completed: Jun 08, 2024 09:02 * BACTERIOLOGY FINAL REPORT => Jun 08, 2024 09:02 TECH CODE: [id number] Bacteriology Remark(s): NO GROWTH IN 24 HOURS, FINAL REPORT TO FOLLOW. FINAL AEROBIC REPORT: NO GROWTH =--=--=--=--=--=--=--=--=--= --=--=--=--=--=--=--=--=--=- -=--=--=--=--=--=--=-- Performing Laboratory: Bacteriology Report Performed By: [facility] [CLIA# [id number]] [address] [place] [address] [facility]YRUS ESPINOZA [facility] Jun 02, 2024 11:29 AM LR SURGICAL PATHOLOGY REPORT: LOCAL TITLE: LR SURGICAL PATHOLOGY REPORT STANDARD TITLE: PATHOLOGY DIAGNOSTIC STUDY REPORT DATE OF NOTE: JUN 02, 2024@11:29:44 ENTRY DATE: JUN 02, 2024@11:29:44 AUTHOR: MAGDALENA STOCKTON MD EXP COSIGNER: URGENCY: STATUS: COMPLETED $APHDR Reporting Lab: [facility] [CLIA# [id number]] [address] [place] [address] - - - - - - - [...] - - - PATHOLOGY REPORT Accession No. HANNAH [id number] - - - - - [...] - - - PATHOLOGY REPORT Accession No. [facility] 24 533 - - - - - - - - - - - - - - - - - - - - - - - - - - - - - - - - - - - - - - - - Gross description: [facility] 36 [id number];;1;Melinda REYNA This is a [facility] case number [facility] [id number]. Received in formalin labeled [...] lower back: Hemangioma, completely excised. CPT code 39368 /roberto/ MAGDALENA STOCKTON MD Board Certified Dermatopathologist Signed Jun 02, 2024@11:29 Performing Laboratory: Surgical Pathology Report Performed By: [facility] [CLIA# [id number]] [address] [place] [address] $FTR - - - - - - [...] - - - - - - ELVIN REYAN JR STANDARD FORM 515 ID:[id number] SEX:M :1975 AGE: 48 LOC:CWM/NO/GS PCP: Loretta Hanson NP /roberto/ MAGDALENA STOCKTON MD Board Certified Dermatopathologist Signed: 06/02/2024 11:29 MAGDALENA STOCKTON MD [facility] Encounter Notes: All associated encounter notes This section contains the clinical notes associated to the Encounter. Date/Time Encounter Note(s) Provider Source Jun 26, 2024 09:23 AM PODIATRY NOTE: LOCAL TITLE: PODIATRY NOTE STANDARD TITLE: PODIATRY NOTE DATE OF NOTE: JUN 26, 2024@09:23 ENTRY DATE: JUN 26, 2024@09:23:26 AUTHOR: CYNTHIA ESPOSITO COSIGNER: URGENCY: STATUS: COMPLETED Podiatry Minor Surgery Procedure note: Address: [address] [place] [address] [place] [address] County: [place] Marital Status: NEVER Age: 48 Spiritism: UNKNOWN/NO PREFERENCE Sex: MALE Occupation: [employer] Period of Service: [employer] Branch of Service: Combat: POW: Eligibility: NSC Status: VERIFIED Means Test: [place] COPAY EXEMPT NOK: MOUSTAPHA REYNA Relation: BROTHER [id number] GABINO MARKHAM MD SHANNAN Jul [id number] [address] [address] [facility] FROM Mar TO MarJUN 26, 2024 Procedure [...] 7. GERD - Gastro-Esophageal Reflux Disease ([facility] [id number]) 8. Anxiety ([facility] [id number]) 9. Hyperlipidemia ([facility] [id number]) 10. Fatty liver 11. Family history of [...] REPORTS SUMMARY pg. 1 ELVIN REYNA JR [id number] : 1975 II - Imaging Impression (max 1 occurrence) Date Procedure CPT Status Case # 06/05/2024 CT ABDOMEN AND PELVIS WITHOUT [id number] Verified 335 CONT. 1. 7 mm calculus [...] read-back verification. READING PHYSICIAN: Rashida Hawk MD -[phone] 06/07/2024 6:44 PST [facility] National Teleradiology Program [phone] (For Medical Practitioner Use Only) Attention Patients [...] Along with contact numbers to the clinic [phone] [facility] 0894 with any concerns /es/ CYNTHIA ESPOSITO DPM PODIATRY ATTENDING Signed: 06/26/2024 14:46 CYNTHIA ESPOSITO [place] [facility]
--- OUTSIDE RECORDS SUMMARY | 2024-10-20 10:08 | XMS_ITS ---
Author Name [facility] [place] [facility] [place] Address [address] [place] [address] Care Team Providers Care Pattern Clerk Name Role Phone LORETTA HANSON Primary [...] Name Patient's Relationship to Policy Gonzalez [facility] Aug 05, 2021 01 [id number] ELVIN WALSH PATIENT Selected Encounter This section includes the information on record at [place] for the Encounter. Date/Time Encounter Type Encounter [...] and observation for unsp reason [facility] [place] [facility] Plan of Treatment: Future Appointments (+ 6 months) and Future Tests (+/- 45 days) The Plan of Treatment section includes future care activities for the patient from all [place] treatmentfacilities. This section includes future appointments and future orders which are active, pending or scheduled. Future Appointments This section includes appointments that were scheduled to occur 6 months from the date of the Encounter, up to a maximum of 20 appointments. The data comes from all [place] treatment facilities. Appointment Date/Time Appointment Type Appointme nt Facility Name Jan 07, 2024 09:30 AM AMBULATORY - REHAB MEDICIN E [facility] [place] [facility] Jan 08, 2024 09:00 AM AMBULATORY - PSYCHIATRY [facility] [place] [facility] Jan 21, 2024 10:30 AM AMBULATORY - MEDICINE [facility] [place] [place] [facility] Jan 21, 2024 11:30 AM AMBULATORY - MEDICINE [facility] [place] [facility] Apr 24, 2024 02:00 PM AMBULATORY - MEDICINE [facility] [place] [facility] Apr 29, 2024 01:00 PM AMBULATORY - MEDICINE [facility] [place] [facility] Apr 29, 2024 02:00 PM AMBULATORY - MEDICINE [facility] [place] [facility] May 13, 2024 09:30 AM AMBULATORY - MEDICINE [facility] [place] [facility] May 21, 2024 11:00 AM AMBULATORY - MEDICINE [facility] [place] [facility] May 22, 2024 01:30 PM AMBULATORY - MEDICINE [facility] [place] [facility] May 29, 2024 02:00 PM AMBULATORY - MEDICINE [facility] [place] [facility] Jun 05, 2024 10:00 AM AMBULATORY - MEDICINE [facility] [place] [facility] Jun 05, 2024 02:00 PM AMBULATORY - MEDICINE [facility] [place] [facility] Jun 05, 2024 02:45 PM AMBULATORY - NONE [facility] [place] [place] [facility] Jun 17, 2024 08:00 AM AMBULATORY - PSYCHIATRY [facility] [place] [facility] Jun 18, 2024 08:30 AM AMBULATORY - MEDICINE [facility] [place] [facility] Jun 18, 2024 11:00 AM [facility] Jun 26, 2024 09:00 AM AMBULATORY - MEDICINE [facility] Active, Pending, and Scheduled Orders This section includes a listing of several types of active, pending, and scheduled orders, including clinic medications orders, diagnostic test orders, procedure orders and consult orders; where the start date of the order is 45 days before the date of the Encounter or 45 days after the date of theEncounter. The data comes from all [place] treatment facilities. Test Date/Time Test Type Test Details Facility Name Jan 21, 2024 12:00 AM Laboratory - Chemi stry Order OCCULT BLOOD FIT X1 SCREEN(IN-HOUSE) STOOL FECES SP [facility] Vital Signs: All taken on the encounter date This section contains inpatient and outpatient Vital Signs collected on the date of the Encounter. Date/Time Temperature Pulse Blood Pressure Respiratory Rate SP02 Pain Height Weight Body Mass Index Source January 01, 2024 11:00 AM 98.1 88 134/88 16 96 0 238 38 [facility] Social History: Smoking Status (Most current) and Tobacco Use (All prior to encounter date) This section includes the most current, and the historical, smoking and tobacco- related health factors from the [place] facility where the Encounter took place. Current Smoking Status This section includes the most current smoking, or tobacco-related health factor, from the [place] facility where the Encounter took place. Date/Time Current Smoking Status Comment Facil ity Aug 26, 2023 10:00 AM VA-TOBACCO FOR[facility]ER [facility] Tobacco Use History This section includes a history of the smoking, or tobacco-related health factors, that were collected on or before the date of the Encounter. The data comes from the [place] facility where the Encounter took place. Date/Time Smoking Status/Tobacco Use Comment F acility Aug 26, 2023 10:00 AM [place]-TOBACCO QUIT 15 YRS OR MORE [facility] Apr 11, 2022 11:00 AM [facility]BACCO [facility] Apr 11, 2022 11:00 AM [place]-TOBACCO QUIT 15 YRS OR MORE [facility] Advance Directives: All historical and current Section Date Range: From patient's date of to the date document was created. This section includes ALL of a patient's completed or amended [place] Advance and Rescinded Directives. The entries below indicate that a directive exists for the patient, but an actual copy is not included with this document. The data comes from all [place] facilities. Date Advance Directives Provider Source May 16, 2011 ADVANCE DIRECTIVE DISCUSSION TON SARAVIA Sep 27, 2005 ADVANCE DIRECTIVE SHARLENE SIDHU [facility] Sep 10, 2005 ADVANCE DIRECTIVE DISCUSSION FRANCE RODRIGEZ [facility] Aug 14, 2004 ADVANCE DIRECTIVE DISCUSSION [...] the Encounter. The data comes from all [place] treatment facilities. Date/Time Radiology Report Provider Source Jan 21, 2024 11:02 AM MANDIBLE LESS THAN 4 VIEWS: ELVIN REYNA [id number] -[id number] M Exm Date: JAN 21, 2024@11:02 Req Phys: GANGA DAVID Loc: CWM/NO/SICK CALL PA (Req'g Loc Img Loc: [facility] 1 Service: Unknown [facility] , (Case [id number] COMPLETE) MANDIBLE LESS THAN 4 VIEWS (RAD Detailed) CPT:74542 Reason for Study: SWELLING AND PAIN Clinical History: R/O MASS Report Status: Verified Date Reported: JAN 21, 2024 Date Verified: JAN 21, 2024 Fisher Eel E-Sig: Report: PROCEDURE: Stat mandible 3 images [...] Recommend CT/MRI. READING PHYSICIAN: Maged Pastor M.D. -[id number] 01/21/2024 12:15 EDT [facility] National Teleradiology Program [phone] (For Medical Practitioner Use Only) Attention Patients / Veterans: If you have questions or concerns about these test results, please contact your ordering provider or primary care team. Primary Diagnostic Code: SIGNIFICANT ABNORMALITY, ATTN NEEDED Primary Interpreting Staff: RADIOLOGY,OUTSIDE SERVICE, Staff Physician / RADIOLOGY,OUTSIDE SERVICE [place] [facility] Encounter Notes: All associated encounter [...] identity was verified using two identifiers, per [place] Policy: Full Name, Date of ELVIN RYENA is a 48 year old who presents [...] Signed: 01/01/2024 11:[address] EPHRAIM AVALOS [facility] HCS
--- OUTSIDE RECORDS SUMMARY | 2024-10-20 10:09 | XMS_ITS ---
Author Name [facility] [place] [facility] [place] Address [address] [place] [address] Care Team Providers Care Converter Supervisor Name Role Phone LORETTA HANSON Primary [...] [place] Aug 05, 2021 01 [id number] ELVIN WALSH PATIENT Selected Encounter This section includes the information on record at [place] for the Encounter. Date/Time Encounter Type Encounter Description Reason Provider Source Aug 06, 2024 02:30 PM OFFICE O/P EST MOD 30 MIN PRIMARY CARE/MEDICINE ICD-10-CM N20.0 Calculus of kidney LEROY HANSON AM Zahra Encounter Template Text not used by [place] Assessments - Encounter Diagnoses This section includes the primary and secondary diagnoses documented for the Encounter. 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 This section includes future appointments and future orders which are active, pending or scheduled. Future Appointments This section includes appointments that were scheduled to occur 6 months from the date of the Encounter, up to a maximum of 20 appointments. The data comes from all [place] treatment facilities. Appointment Date/Time Appointment Type Appointme nt Facility Name Aug 14, 2024 11:30 AM AMBULATORY - MEDICINE [facility] [place] [place] [facility] Sep 02, 2024 01:00 PM [facility] Sep 02, 2024 01:00 PM AMBULATORY - MEDICINE [facility] [place] [facility] Sep 03, 2024 03:00 PM AMBULATORY - MEDICINE [facility] [place] [facility] Sep 14, 2024 10:30 AM AMBULATORY - NONE [facility] [place] [facility] Sep 28, 2024 10:30 AM AMBULATORY - MEDICINE [facility] [place] [facility] Sep 30, 2024 02:30 PM AMBULATORY - MEDICINE [facility] [place] [facility] Oct 05, 2024 03:00 PM AMBULATORY - MEDICINE [facility] [place] [facility] Oct 13, 2024 02:15 PM AMBULATORY - REHAB MEDICIN E [facility] [place] [facility] Oct 15, 2024 10:00 AM AMBULATORY - MEDICINE [facility] [place] [facility] Oct 16, 2024 11:30 AM AMBULATORY - REHAB MEDICIN E [facility] [place] [facility] Oct 19, 2024 04:00 PM AMBULATORY - REHAB MEDICIN E [facility] [place] [facility] Oct 20, 2024 09:30 AM AMBULATORY - MEDICINE [facility] [place] [facility] Oct 27, 2024 02:30 PM AMBULATORY - SURGERY [facility] Dec 01, 2024 03:00 PM AMBULATORY - MEDICINE [place] [facility] Jan 04, 2025 10:30 AM AMBULATORY - MEDICINE [place] C [place] [facility] Jan 19, 2025 11:00 AM AMBULATORY - [facility]IC[facility] Active, Pending, and Scheduled Orders [...] Date/Time Test Type Test Details Facility Name Jul 23, 2024 12:00 AM Laboratory - Chemi stry Order PTH INTACT BLOOD (RED-PLAIN) SERUM SP [facility] Lab Results: +/- 30 days of the encounter This section includes the Chemistry and Hematology Lab Results on record with [place] for the patient. Radiology Reports and Pathology Reports are provided separately, in subsequent sections. Lab Results This section contains the Chemistry/Hematology Results that were resulted 30 days before or 30 daysafter the date of the Encounter. Date/Time Source Result Type Result - Unit Interpretation Reference Range Comment Sep 03, 2024 04:06 PM [facility] VITAMIN D (25-OH) Specimen Type: SERUM No comment entered. Ordering Provider: MAR HANSON Report Released Date/Time: Jul 23, 2024 12:38 PM Reporting [facility]: [facility] [address] [address] Performing Lab: [address] [address] VITAMIN D (25-OH) 35 ng/mL 20-50 Sep 03, 2024 04:06 PM [facility] TSH Specimen Type: SERUM No comment entered. Ordering Provider: MAR HANSON Report Released Date/Time: Jul 23, 2024 12:38 PM Reporting Lab: [address] [place] [address] Performing Lab: [facility] [address] [facility] [facility] [address] TSH 1.59 u[IU]/mL 0.35-5.00 Sep 03, 2024 04:06 PM [facility] PTH INTACT Specimen Type: SERUM No comment entered. Ordering Provider: KAVIN STORY Report Released Date/Time: Aug 30, 2024 05:36 PM Reporting Lab: [facility] [address] [facility] [facility] [address] Performing Lab: [address] [address] PTH INTACT 96.0 pg/mL H 8.7-77.1 Sep 03, 2024 04:06 PM [facility] CALCIUM Specimen Type: SERUM No comment entered. Ordering Provider: KAVIN STORY Report Released Date/Time: Aug 30, 2024 05:36 PM Reporting Lab: [facility] [address] [facility] [facility] [address] Performing Lab: [address] [address] CALCIUM 9.3 mg/dL 8.5-10.2 Sep 03, 2024 04:06 PM [facility] BASIC METABOLIC PANEL (non-fasting) Specimen Type: SERUM No comment entered. Ordering Provider: KAVIN STORY Report Released Date/Time: Aug 30, 2024 05:36 PM Reporting Lab: [facility] [address] [facility] [address] Performing Lab: [address] [address] UREA NITROGEN 18 mg/dL 7-25 GLUCOSE 94 mg/dL 65-100 SODIUM 137 mmol/L 135-145 POTASSIUM 4.0 mmol/L 3.5-5.0 CHLORIDE 106 mmol/L 100-110 CO2 23 meq/L 20-30 CREATININE, Serum 0.87 mg/dL 0.50-1.40 eGFR(CKD-EPI 2020) >90 mL/min >60 Aug 10, 2024 02:45 PM [place] [facility] [place] [facility] OCCULT BLOOD FIT X1 SCREEN(IN-HOUSE) Specimen Type: FECES No comment entered. Ordering Provider: MAR HANSON Report Released Date/Time: Apr 24, 2024 02:10 PM Reporting [facility] [place] [facility] [address] [facility] [address] [facility]: [facility] [address] [facility] [facility] [address] OCCULT BLOOD (FIT)#1 OF 1 Negative NEG Vital Signs: All taken on the encounter date This section contains inpatient and outpatient Vital Signs collected on the date of the Encounter. Date/Time Temperature Pulse Blood Pressure Respiratory Rate SP02 Pain Height Weight Body Mass Index Source Aug 06, 2024 02:16 PM 98.3 96 146/85 20 96 2 66 229 [address] [facility] Social History: Smoking Status (Most current) [...] Current Smoking Status Comment Facil ity Aug 03, 2024 01:00 PM VA-TOBACCO NEVER U SED CIGARETTES [facility] Tobacco Use History This section includes a history of the smoking, or tobacco-related health factors, that were collected on or before the date of the Encounter. The data comes from the [place] facility where the Encounter took place. Date/Time Smoking Status/Tobacco Use Comment F acility Aug 03, 2024 01:00 PM VA-TOBACCO NEVER U SED OTHER TYPE [place] [facility] [place] [facility] Aug 26, 2023 10:00 AM VA-TOBACCO FORMER USER [place] [facility] [facility] Aug 26, 2023 10:00 AM VA-TOBACCO QUIT 15 YRS OR MORE [place] [facility] [place] [facility] Apr 11, 2022 11:00 AM VA-TOBACCO FORMER USER [place] [facility] [facility] Apr 11, 2022 11:00 AM VA-TOBACCO QUIT 15 YRS OR MORE [place] [facility] [place] [facility] Advance Directives: All historical and [...] Sep 27, 2005 ADVANCE DIRECTIVE SHARLENE SIDHU [facility] Sep 10, 2005 ADVANCE DIRECTIVE DISCUSSION FRANCE RODRIGEZ [facility] Aug 14, 2004 ADVANCE DIRECTIVE DISCUSSION [facility] [place] Encounter Notes: All associated encounter notes This section contains the clinical notes associated to the Encounter. Date/Time Encounter Note(s) Provider Source Aug 19, 2024 08:41 AM PRIMARY CARE NURSE PRACTITIONER OUTPATIENT NOTE: LOCAL TITLE: NURSE PRACTITIONER OUTPATIENT NOTE STANDARD TITLE: PRIMARY CARE NURSE PRACTITIONER OUTPATIENT NOTE DATE OF NOTE: AUG 19, 2024@08:41 ENTRY DATE: AUG 19, 2024@08:41:09 AUTHOR: LORETTA HANSON EXP COSIGNER: URGENCY: STATUS: COMPLETED DEPARTMENT OF [facility] Toll Free Number Primary Care Telephone Assistance can be reached at extension [phone] [facility] scheduling can be reached at extension [phone] [facility] scheduling can be reached at ext [phone] AUG 19, 20[address]YNA [address], [address] Thank you for coming in for your tests. Your recent test results are as follows: LAB CHEMISTRY & HEMATOLOGY Collection DT Specimen Test Name Result Units Ref Range 08/10/2024 14:45 FECES FIT1/1 Negative Ref: NEG I have reviewed your results. I am pleased to let you know, stable findings. Thank you for allowing me to be a part of your health care team. Please call if you have any questions or concerns. Sincerely, BENJAMÍN Wyman DNP, MARILYN Nurse Practitioner Primary Care PACT Seven /es/ BENJAMÍN Paez DNP, MARILYN Primary Care Nurse Practitioner Signed: 08/19/2024 08:41 Receipt Acknowledged By: 08/19/2024 09:49 /roberto/ BRUCE STOLL ADVANCED HARBOUR MASTER LORETTA HANSON [place] [facility] [facility] Aug 06, 2024 02:37 PM PRIMARY CARE NURSE PRACTITIONER OUTPATIENT NOTE: LOCAL TITLE: NURSE PRACTITIONER OUTPATIENT NOTE STANDARD TITLE: PRIMARY CARE NURSE PRACTITIONER OUTPATIENT NOTE DATE OF NOTE: AUG 06, 2024@14:37 ENTRY DATE: AUG 06, 2024@14:37:22 AUTHOR: LORETTA HANSON EXP COSIGNER: URGENCY: STATUS: COMPLETED Chief complaint: Patient is a 49 year old . HPI: Pleasant male [place] here to follow up. He was evaluated in the ER this week for chest pain, negative work up. He does continue to have some issues with nausea, today got better once he ate. He is taking his PPI, we discussed he could trail taking 40mg in the am and then again early PM. He is scheduled for gi in August. Allergies: Patient has answered NKA The following VA and Non-VA meds were reconciled with patient. The patient was educated on the use of the medications including indication and side effects. Active and Recently Outpatient Medications (excluding Supplies): Active Outpatient Medications Status === 1) AZELASTINE 137MCG/SPRAY 200D NASAL INHL SPRAY 1 SPRAY INTO ACTIVE EACH NOSTRIL ONCE DAILY Indication: FOR SEASONAL RUNNY NOSE 2) CIPROFLOXACIN HCL 500MG TAB TAKE ONE TABLET BY MOUTH TWICE ACTIVE DAILY FOR INFECTION 3) DM 10/GUAIFENESN 100MG/5ML (AF & SF) LIQ TAKE 5 MLS BY MOUTH ACTIVE EVERY 6 HOURS NEEDED Indication: FOR COUGH 4) OMEPRAZOLE 20MG EC CAP TAKE TWO CAPSULES BY MOUTH ONCE DAILY ACTIVE (NOTE DOSE) Indication: FOR EXCESSIVE PRODUCTION OF STOMACH ACID Active Non-VA Medications Status === 1) Non-VA CHOLECALCIF 10MCG (D3-400UNIT) TAB 10MCG BY MOUTH ACTIVE ONCE DAILY Indication: FOR VITAMIN D DEFICIENCY 2) Non-VA OTHER CAP/TAB RACHANA WORKZ MUSHROOM COMPLEX BY MOUTH ACTIVE ONCE DAILY 3) Non-VA PROBIOTIC (CULTURELLE DIGESTIVE DAILY) CAP/TAB BY ACTIVE MOUTH 7 Total Medications Review of Systems: Constitutional: (-)for Fevers, chills, weakness, nights sweats On examination: 98.3 F [36.8 C] (08/06/2024 14:16)146/85 (08/06/2024 14:16)96 (08/06/2024 14:16)20 (08/06/2024 14:16)2 (08/06/2024 14:16)BMI: 37.0229 lb [103.87 kg] (08/06/2024 14:16) [place] is alert and oriented X3 Cardiovasc: 2plus [...] List is the source for the followin. Kidney stone - stent removed, following with Dr. Perez. 2. Poon's esophagus - gi pending 3. Overweight - we discussed the benefits of exercise, wt reduction and stress relief. healthcare maintenance - he has FIT test. Reminded him on use. Today I spent 30 minutes on some or all of the following: chart review, history, physical examination, treatment planning, education and counseling of the patient/family/sub acute care nurse, placing orders, communicating with other health care providers, completing health and wellness screenings (see below) and documentation in the electronic health record. Follow up visit January. Avg Risk Colorectal Cancer Screen: AVERAGE RISK [...] this [place] (local) and dispensed from another [place] or [facility] facility (remote) as well as inpatient orders [...] or non-VA provider. /roberto/ Loretta Hanson DNP, FINGERNAIL SCULPTURER-BC, CNL Primary Care Nurse Practitioner Signed: 08/06/2024 14:46 LORETTA HANSON [place] [facility]
--- OUTSIDE RECORDS SUMMARY | 2024-10-20 10:09 | XMS_ITS | Encounter Summary ---
Author Name [facility] [place] Organization [place] Address [address] [place] [address] Care Team Providers Care Restaurant Assistant Name Role Phone LORETTA HANSON Primary [...] Gonzalez's Name Patient's Relationship to Policy Gonzalez [facility] Aug 05, 2021 01 [id number] ELVIN WALSH PATIENT Selected Encounter This section includes the information on record at [place] for the Encounter. Date/Time Encounter Type Encounter Description Reason Provider Source December 24, 2023 03:00 PM THERAPEUTIC EXERCISES OCCUPATIONAL THERAPY ICD-10-CM M79.601 Pain in right arm [facility] Encounter Template Text not used by [place] Assessments - Encounter Diagnoses This section includes the primary and secondary diagnoses documented for the Encounter. Date/Time Primary/Secondary Diagnosis Diagnosis Name Provider Source December 25, 2023 07:21 AM PRIMARY Pain in right arm [facility] Plan of Treatment: Future Appointments (+ 6 months) and Future Tests (+/- 45 days) The Plan of Treatment section includes future care activities for the [facility] [place] [facility] This section includes future appointments and future orders which are active, pending or scheduled. Future Appointments This section includes appointments that were scheduled to occur 6 months from the date of the Encounter, up to a maximum of 20 appointments. The data comes from all [place] treatment facilities. Appointment Date/Time Appointment Type Appointme nt Facility Name January 01, 2024 11:00 AM AMBULATORY - MEDICINE [facility] [place] [facility] Jan 07, 2024 09:30 AM AMBULATORY - REHAB MEDICIN E [facility] [place] [facility] Jan 08, 2024 09:00 AM AMBULATORY - PSYCHIATRY [facility] [place] [facility] Jan 21, 2024 10:30 AM AMBULATORY - MEDICINE [facility] [place] [facility] Jan 21, 2024 11:30 AM AMBULATORY - MEDICINE [facility] [place] [facility] Apr 24, 2024 02:00 PM AMBULATORY - MEDICINE [facility] [place] [facility] Apr 29, 2024 01:00 PM AMBULATORY - MEDICINE [facility] [place] [facility] Apr 29, 2024 02:00 PM AMBULATORY - MEDICINE [facility] [place] [facility] May 13, 2024 09:30 AM AMBULATORY - MEDICINE [facility] [place] [facility] May 21, 2024 11:00 AM AMBULATORY - MEDICINE [facility] [place] [facility] May 22, 2024 01:30 PM AMBULATORY - MEDICINE [facility] [place] [facility] May 29, 2024 02:00 PM AMBULATORY - MEDICINE [facility] [place] [facility] Jun 05, 2024 10:00 AM AMBULATORY - MEDICINE [facility] [place] [facility] Jun 05, 2024 02:00 PM AMBULATORY - MEDICINE [facility] [place] [facility] Jun 05, 2024 02:45 PM AMBULATORY - NONE [facility] [place] [facility] Jun 17, 2024 08:00 AM AMBULATORY - PSYCHIATRY [facility] [place] [facility] Jun 18, 2024 08:30 AM [facility] Jun 18, 2024 11:00 AM AMBULATORY - PSYCHIATRY [facility] Active, Pending, and Scheduled Orders This [...] data comes from all [place] treatment facilities. Test Date/Time Test Type Test Details Facility Name Jan 21, 2024 12:00 AM Laboratory - Chemi stry Order OCCULT BLOOD FIT X1 SCREEN(IN-HOUSE) STOOL FECES SP [facility] Social History: Smoking Status (Most [...] 26, 2023 10:00 AM [place]-TOBACCO FORMER USER [facility] Tobacco Use History This section includes a history of the smoking, or tobacco-related health factors, that were collected on or before the date of the Encounter. The data comes from the [place] facility where the Encounter took place. Date/Time Smoking Status/Tobacco Use Comment F acility Aug 26, 2023 10:00 AM [place]-TOBACCO QUIT [facility] YRS [facility] Apr 11, 2022 11:00 AM [place]-[facility]AC[facility] Apr 11, 2022 11:00 AM [place]-TOBACCO QUIT 15 YRS OR MORE [facility] [...] Sep 27, 2005 ADVANCE DIRECTIVE SHARLENE SIDHU [facility] Sep 10, 2005 ADVANCE DIRECTIVE DISCUSSION FRANCE RODRIGEZ [facility] Aug 14, 2004 ADVANCE DIRECTIVE DISCUSSION REGULO [...] MANDIBLE LESS THAN 4 VIEWS: ELVIN REYNA [id number] -1975 M Exm Date: JAN 21, 2024@11:02 Req Phys: GANGA DAVID Loc: CWM/NO/SICK CALL PA (Req'g Loc Img Loc: [facility]/BUILDING 1 Service: Unknown [place] [facility] , (Case 316 COMPLETE) MANDIBLE LESS THAN 4 VIEWS (RAD Detailed) CPT:16589 Reason for Study: SWELLING AND PAIN Clinical History: R/O MASS Report Status: Verified Date Reported: JAN 21, 2024 Date Verified: JAN 21, 2024 Silicator E-Sig: Report: PROCEDURE: Stat mandible 3 images [...] Recommend CT/MRI. READING PHYSICIAN: Maged Pastor M.D. -[id number] 01/21/2024 12:15 EDT [facility] National Teleradiology Program [phone] (For Medical Practitioner Use Only) Attention Patients / Veterans: If you have questions or concerns about these test results, please contact your ordering provider or primary care team. Primary Diagnostic Code: SIGNIFICANT ABNORMALITY, ATTN NEEDED Primary Interpreting Staff: RADIOLOGY,OUTSIDE SERVICE, Staff Physician / RADIOLOGY,OUTSIDE SERVICE [facility] [place] [facility] Encounter Notes: All associated encounter [...] walk-outs w/ green band, 2x10 Access Code: [email or web address] URL: [email or web address] Date: 12/17/2023 Prepared by: [facility] Mass Exercises - Shoulder Flexion Wall Slide [...] SYDNEY PALOMARES OCCUPATIONAL THERAPY STUDENT [facility]
--- OUTSIDE RECORDS SUMMARY | 2024-10-20 10:09 | XMS_ITS | Encounter Summary ---
Author Name [place] Organization [place] Address [address] [place] [address] Care Team Providers Care Motorcycle Police Officer Name Role Phone LORETTA HANSON Primary [...] [place] [facility] Aug 05, 2021 01 [id number] ELVIN WALSH PATIENT Selected Encounter This section includes the information on record at [place] for the Encounter. Date/Time Encounter Type Encounter Description Reason Provider Source Jan 08, 2024 09:00 AM MTMS BY PHARM ADDL [facility] - IND ICD-10-CM F41.9 Anxiety disorder, unspecified MAGGIE FRANCES ER SHWETA Torres IHZahra Encounter Template Text not used by [place] Assessments - Encounter Diagnoses This section includes the primary and secondary diagnoses documented for the Encounter. Date/Time Primary/Secondary Diagnosis Diagnosis Name Provider Source Jan 08, 2024 10:15 AM PRIMARY Anxiety disorder, unspecified MAGGIE FRANCES ER SHWETA D [facility] [place] [facility] Plan of Treatment: Future Appointments (+ 6 months) and Future Tests (+/- 45 days) The Plan of Treatment section includes future care activities for the patient from all [place] [facility]. This section includes future appointments and [...] - MEDICINE [facility] [place] [facility] Jan 21, 2024 11:30 AM AMBULATORY - MEDICINE [facility] [place] [facility] Apr 24, 2024 02:00 PM AMBULATORY - MEDICINE [facility] [place] [facility] Apr 29, 2024 01:00 PM AMBULATORY - MEDICINE [facility] [place] [facility] Apr 29, 2024 02:00 PM AMBULATORY - MEDICINE [facility] [place] [facility] May 13, 2024 09:30 AM AMBULATORY - MEDICINE [facility] [place] [facility] May 21, 2024 11:00 AM AMBULATORY - MEDICINE [facility] [place] [facility] May 22, 2024 01:30 PM AMBULATORY - MEDICINE [facility] [place] [facility] May 29, 2024 02:00 PM AMBULATORY - MEDICINE [facility] [place] [facility] Jun 05, 2024 10:00 AM AMBULATORY - MEDICINE [facility] [place] [facility] Jun 05, 2024 02:00 PM AMBULATORY - MEDICINE [facility] [place] [facility] Jun 05, 2024 02:45 PM AMBULATORY - NONE [facility] [place] [facility] Jun 17, 2024 08:00 AM AMBULATORY - PSYCHIATRY [facility] [place] [facility] Jun 18, 2024 08:30 AM AMBULATORY - MEDICINE [facility] [place] [facility] Jun 18, 2024 11:00 AM AMBULATORY - PSYCHIATRY [facility] [place] [facility] Jun 26, 2024 09:00 AM AMBULATORY - [...] BLOOD FIT X1 SCREEN(IN-HOUSE) STOOL FECES SP [facility] Social History: Smoking Status (Most current) [...] 26, 2023 10:00 AM [place]-TOBACCO FORMER USER [facility] Tobacco Use History This section includes a history of the smoking, or tobacco-related health factors, that were collected on or before the date of the Encounter. The data comes from the [place] facility where the Encounter took place. Date/Time Smoking Status/Tobacco Use Comment F acility Aug 26, 2023 10:00 AM [place]-TOBACCO QUIT 15 YRS OR MORE [facility] Apr 11, 2022 11:00 AM [place]-TOBACCO FORMER USER [facility] Apr 11, 2022 11:00 AM [place]-TOBACCO QUIT 15 YRS OR MORE [facility] Advance Directives: All historical and current [...] 10, 2005 ADVANCE DIRECTIVE DISCUSSION FRANCE RODRIGEZ [facility] Aug 14, 2004 ADVANCE DIRECTIVE [...] MANDIBLE LESS THAN 4 VIEWS: ELVIN REYNA [id number] -1975 M Exm Date: JAN 21, 2024@11:02 Req Phys: GANGA DAVID Loc: CWM/NO/SICK CALL PA (Req'g Loc Img Loc: [facility]BUILDING 1 Service: Unknown [place] [facility] [place] [facility] , (Case 316 COMPLETE) MANDIBLE LESS THAN 4 VIEWS (RAD Detailed) CPT:11593 Reason for Study: SWELLING AND PAIN Clinical History: R/O MASS Report Status: Verified Date Reported: JAN 21, 2024 Date Verified: JAN 21, 2024 Worm Picker E-Sig: Report: PROCEDURE: Stat mandible 3 images [...] Recommend CT/MRI. READING PHYSICIAN: Maged Pastor M.D. -[id number] 01/21/2024 12:15 EDT [facility] National Teleradiology Program [phone] (For Medical Practitioner Use Only) Attention Patients / Veterans: If you have questions or concerns about these test results, please contact your ordering provider or primary care team. Primary Diagnostic Code: SIGNIFICANT ABNORMALITY, ATTN NEEDED Primary Interpreting Staff: RADIOLOGY,OUTSIDE SERVICE, Staff Physician / RADIOLOGY,OUTSIDE SERVICE [place] [facility] [place] [facility] Encounter Notes: All associated encounter notes This [...] has been doing well and shared w/ screenplay writer his progress from the last several [...] Overweight 7. GERD - Gastro-Esophageal Reflux Disease ([facility] [id number]) 8. Anxiety ([facility] [id number]) 9. Hyperlipidemia ([facility] [id number]) 10. Fatty liver 11. Family history of [...] risperidone () - sertraline () - trazodone ([id number]) [X] Per Patient: - SI w/ bupropion [...] following review of all active psychotropic and IT SERVICE CONTINUITY SUPERVISOR-active agents is to ensure pharmacotherapy is evaluated [...] Other: RTC Interval: n/a Next Apt: n/a [place] was provided screenplay writer's contact information and instructed to contact screenplay writer as needed for any changes to scheduling or concerns otherwise. is aware of actions to take if they feel unsafe, including calling the [place]'s Crisis Line (#[phone]); calling 911; or going to the nearest urgent care or emergency room. The is also aware of how to contact the clinic should the require additional services prior to the next appointment. Time spent on chart review, session, and documentation: 45minute /roberto/ Hossein Frances PharmD Clinical Pharmacist Practitioner Signed: 01/08/2024 10:22 [facility] FRANCES [place] [facility]
--- OUTSIDE RECORDS SUMMARY | 2024-10-20 10:10 | XMS_ITS ---
VA INTMD RPR S/A/T/EXT 2.5 CM/< [facility] Encounter Summary Created on: October 20, 2024 ELVIN REYNA : 1975 Sex: Male Author Name [facility] Address [address] [place] [address] Care Team Providers Care Consumer Loan Officer Name Role Phone LORETTA HANSON Primary [...] [place] H Aug 05, 2021 01 [id number] ELVIN WALSH PATIENT Selected Encounter This section includes the information on record at [place] for the Encounter. Date/Time Encounter Type Encounter [...] of uncertain behavior of skin GOMARIA ANTONIA [place] [facility] [place] [facility] Plan of Treatment: Future Appointments (+ 6 months) and Future Tests (+/- 45 days) The Plan of Treatment section includes future care activities for the patient from all [place] treatmentfacilities. This section includes future appointments and future orders which are active, pending or scheduled. Future Appointments This section includes appointments that were scheduled to occur 6 months from the date of the Encounter, up to a maximum of 20 appointments. The data comes from all [place] treatment facilities. Appointment Date/Time Appointment Type Appointme nt Facility Name Jun 05, 2024 10:00 AM AMBULATORY - MEDICINE [facility] [place] [facility] Jun 05, 2024 02:00 PM AMBULATORY - MEDICINE [facility] [place] [facility] Jun 05, 2024 02:45 PM AMBULATORY - NONE [facility] [place] [facility] Jun 17, 2024 08:00 AM AMBULATORY - PSYCHIATRY [facility] [place] [facility] Jun 18, 2024 08:30 AM AMBULATORY - MEDICINE [facility] [place] [facility] Jun 18, 2024 11:00 AM AMBULATORY - PSYCHIATRY [facility] [place] [facility] Jun 26, 2024 09:00 AM AMBULATORY - MEDICINE [facility] [place] [facility] Jul 13, 2024 09:00 AM AMBULATORY - MEDICINE [facility] [place] [facility] Jul 23, 2024 11:30 AM AMBULATORY - MEDICINE [facility] [place] [facility] Aug 03, 2024 01:00 PM AMBULATORY - MEDICINE [facility] [place] [facility] Aug 06, 2024 02:30 PM AMBULATORY - MEDICINE [facility] [place] [facility] Aug 14, 2024 11:30 AM AMBULATORY - MEDICINE [facility] [place] [facility] Sep 02, 2024 01:00 PM AMBULATORY - SURGERY [place] [facility] Sep 02, 2024 01:00 PM AMBULATORY - MEDICINE [facility] [place] [facility] Sep 03, 2024 03:00 PM AMBULATORY - MEDICINE [facility] [place] [facility] Sep 14, 2024 10:30 AM [facility] Sep 28, 2024 10:30 AM [facility] Sep 30, 2024 02:30 PM [facility] Oct 05, 2024 03:00 PM AMBULATORY - MEDICINE [facility] Oct 13, 2024 02:15 PM AMBULATORY - [facility] Active, Pending, and Scheduled Orders This section includes a listing of several types of active, pending, and scheduled orders, including clinic medications orders, diagnostic test orders, procedure orders and consult orders; where the start date of the order is 45 days before the date of the Encounter or 45 days after the date of theEncounter. The data comes from all [place] treatment facilities. Test Date/Time Test Type Test Details Facility Name Jun 03, 2024 12:30 PM Consult Order DERMATOLOG Y/NHM (OUTPT) Cons Hl7 Developer's Choice [facility] Jun 18, 2024 12:00 AM Laboratory - Chemi stry Order DRUGS OF ABUSE URINE (DRUG) SP [facility] Lab Results: +/- 30 days of the encounter This section includes the Chemistry and Hematology Lab Results on record with [place] for the patient. Radiology Reports and Pathology Reports are provided separately, in subsequent sections. Lab Results This section contains the Chemistry/Hematology Results that were resulted 30 days before or 30 daysafter the date of the Encounter. Date/Time Source Result Type Result - Unit Interpretation Reference Range Comment Jun 05, 2024 02:23 PM [facility] CT/GC DNA PANEL(IN-HOUSE) Specimen Type: URINE Comment: Test performed on the [employer] Genexpert. A negative test results does not exclude the possibility of infection because results may be affected by improper specimen collection, concurrent antibiotic therapy, or the number of organisms in the specimen which may be below the sensitivity of the test. Ordering Provider: MAR HANSON Report Released Date/Time: Jun 05, 2024 02:02 PM Reporting Lab: [address] [address] Performing Lab: [facility] [address] [facility] [address] GC PCR NOT DETECTED Not Detected CT PCR NOT DETECTED Not Detected Jun 05, 2024 02:23 PM [facility] MICROSCOPIC AUTOMATED, URINE Specimen Type: URINE Comment: If Glucose = >500 and Ketones are positive, please alert the Physician. Ordering Provider: MAR HANSON Report Released Date/Time: Jun 05, 2024 02:02 PM Reporting Lab: [address] [address] Performing Lab: [address] [address] UA WBC 0-5 /[HPF] 0-5 UA MUCUS FEW /[LPF] Trace UA RBC 11-20 /[HPF] H 0-3 Jun 05, 2024 02:23 PM [facility] URINALYSIS CLEAN CATCH Specimen Type: URINE Comment: If Glucose = >500 and Ketones are positive, please alert the Physician. Ordering Provider: MAR HANSON Report Released Date/Time: Jun 05, 2024 02:02 PM Reporting Lab: [address] [address] Performing Lab: [address] [address] UA COLOR Light-Yellow Yellow UA APPEARANCE Clear [...] PM 98.5 96 123/87 18 97 0 [facility] Social History: Smoking Status (Most current) and Tobacco Use (All prior to encounter date) This section includes the most current, and the historical, smoking and tobacco- related health factors from the [place] facility where the Encounter took place. Current Smoking Status This section includes the most current smoking, or tobacco-related health factor, from the [place] facility where the Encounter took place. Date/Time Current Smoking Status Comment Facil ity Aug 26, 2023 10:00 AM MI-TOBACCO FORMER USER [facility] Tobacco Use History This section includes a history of the smoking, or tobacco-related health factors, that were collected on or before the date of the Encounter. The data comes from the [place] facility where the Encounter took place. Date/Time Smoking Status/Tobacco Use Comment F acility Aug 26, 2023 10:00 AM MI-TOBACCO QUIT 15 YRS OR MORE [facility] Apr 11, 2022 11:00 AM VA-TOBACCO FORMER USER [facility] Apr 11, 2022 11:00 AM MI-TOBACCO QUIT 15 YRS OR MORE [facility] Advance Directives: All historical and current Section Date Range: From patient's date of to the date document was created. This section includes ALL of a patient's completed or amended [place] Advance and Rescinded Directives. The entries below indicate that a directive exists for the patient, but an actual copy is not included with this document. The data comes from all [place] facilities. Date Advance Directives Provider Source May 16, 2011 ADVANCE DIRECTIVE DISCUSSION TON SARAVIA Sep 27, 2005 ADVANCE DIRECTIVE SHARLENE SIDHU [facility] Sep 10, 2005 ADVANCE DIRECTIVE DISCUSSION FRANCE RODRIGEZ [facility] Aug 14, 2004 ADVANCE DIRECTIVE [...] the Encounter. The data comes from all [place] treatment facilities. Date/Time Radiology Report Provider Source Jun 05, 2024 02:[address] ABDOMEN AND PELVIS WITHOUT CONT.: ELVIN REYNA [id number] -1975 M Ex Date: JUN 05, 2024@14:27 Req Phys: LORETTA HANSON Loc: CWM/NO/PACT 7 (Req'g Loc) Img Loc: NH[facility]/CT Service: Unknown [facility] [place] [address] (Case [id number] COMPLETE) CT ABDOMEN AND PELVIS WITHOUT CON(CT Detailed) CPT:99283 Reason for Study: lower abdominal pain Clinical History: h/o kidney stone, having worsening pain Report Status: Verified Date Reported: JUN 07, 2024 Date Verified: JUN 07, 2024 [place] E-Sig: Report: CT ABDOMEN AND PELVIS WITHOUT CONT. HISTORY: lower abdominal pain COMPARISON: 11/28/2091. TECHNIQUE: CT of the abdomen and pelvis with multiplanar reformats was performed at the local [place] facility. 497 images were received by the [place] National Teleradiology Program (NTP) for interpretation. RADIATION [...] read-back verification. READING PHYSICIAN: Rashida Hawk MD -[phone] 06/07/2024 6:44 PST [facility] [employer] Teleradiology Program [phone] (For Medical Practitioner Use Only) Attention Patients / Veterans: If you have questions or concerns about these test results, please contact your ordering provider or primary care team. Primary Diagnostic Code: CRITICAL ABNORMALITY Primary Interpreting Staff: RADIOLOGY,OUTSIDE SERVICE, Staff Physician / RADIOLOGY,OUTSIDE SERVICE [facility] Pathology Reports: +/- 30 days of [...] the Encounter. The data comes from all [place] treatment facilities. Date/Time Pathology Report Provider Source Jun 05, 2024 02:23 PM LR MICROBIOLOGY REPORT: Reporting Lab: [facility] [CLIA# [id number]] [address] [place] [id number] Accession [UID]: [id number] [[id number]] Received: Jun 05, 2024@14:23 Collection sample: URINE CLEAN CATCH Collection date: Jun 05, 2024 14:23 Site/Specimen: URINE Provider: LORETTA HANSON Test(s) ordered: URINE CULTURE(MWROX).......... completed: Jun 08, 2024 09:02 * BACTERIOLOGY FINAL REPORT => Jun 08, 2024 09:02 TECH CODE: [id number] Bacteriology Remark(s): NO GROWTH IN 24 HOURS, FINAL REPORT TO FOLLOW. FINAL AEROBIC REPORT: NO GROWTH =--=--=--=--=--=--=--=--=--= --=--=--=--=--=--=--=--=--=- -=--=--=--=--=--=--=-- Performing Laboratory: Bacteriology Report Performed By: [facility] [CLIA# [id number]] [address] [place] [address] CYRUS ESPINOZA [facility] Jun 02, 2024 11:29 AM LR SURGICAL PATHOLOGY REPORT: LOCAL TITLE: LR SURGICAL PATHOLOGY REPORT STANDARD TITLE: PATHOLOGY DIAGNOSTIC STUDY REPORT DATE OF NOTE: JUN 02, 2024@11:29:44 ENTRY DATE: JUN 02, 2024@11:29:44 AUTHOR: MAGDALENA STOCKTON MD EXP COSIGNER: URGENCY: STATUS: COMPLETED $APHDR Reporting Lab: [facility] [CLIA# [id number]] [address] [place] [address] - - - - - - - [...] - - - - - Gross description: [facility] 55 [id number];;1;Melinda REYNA This is a [facility] number [id number]. Received [...] lower back: Hemangioma, completely excised. CPT code 24590 /roberto/ MAGDALENA STOCKTON MD Board Certified Dermatopathologist Signed Jun 02, 2024@11:29 Performing Laboratory: Surgical Pathology Report Performed By: [facility] [CLIA# [id number]] [address] [place] [id number] $FTR - - - - - - [...] - ELVIN REYNA JR STANDARD FORM 515 ID:[id number] SEX:M :1975 AGE: 48 LOC:CWM/NO/GS PCP: Loretta Hanson NP /roberto/ MAGDALENA STOCKTON MD Board Certified Dermatopathologist Signed: 06/02/2024 11:29 MAGDALENA STOCTKON MD [facility] Encounter Notes: All associated encounter notes [...] NAME: Maria Antonia Dong MD STAFF NAME: Yariel Osullivan LPN IDENTIFICATION CONFIRMED BY ASSISTING STAFF MEMBER (X) [place] stating full name ELVIN REYNA JR (X) [place] stating full SS# (X) [place] stating (X) [place] stating correct procedure, correct site, and correct [...] sent to the Pathology Department at the [place] in [place], [place]. The wound was irrigated well. Hemostasis was achieved with [id number] stitches of 4-0 or 3-0 Vicryl suture. [...] of active outpatient prescriptions dispensed from this [place] (local) and dispensed from another [place] or [facility] facility (remote) as well as inpatient [...] JLV. Allergies/ADRs (Tool #5) FACILITY ALLERGY/ADR -------- [facility] NO KNOWN ALLERGIES [facility] NO KNOWN ALLERGIES [facility] NO KNOWN ALLERGIES [facility] No Known Allergies [facility] Med Recon NoGlossary (Tool #1) INCLUDED IN THIS LIST: Alphabetical list of active outpatient prescriptions dispensed from this MI (local) and dispensed from another [place] or [facility] facility (remote) as well as inpatient orders (local pending and active), local clinic medications, locally documented non-VA medications, and local prescriptions that have or been discontinued in the past 90 days. Non-VA Meds Last Documented On: Sep 20, 2022 NOTE The display of VA prescriptions dispensed from another [place] or [facility] facility (remote) is limited to active outpatient prescription entries matched to National Drug File at the originating site and may not include some items such as investigational drugs, compounds, etc. NOT INCLUDED IN THIS LIST: Medications self-entered by the patient into personal health records (i.e. [employer]) are NOT included in this list. Non-VA medications documented outside this MI, remote inpatient orders (regardless of status) and remote clinic medications are NOT included in this list. The patient and provider must always discuss medications the patient is taking, regardless of where the medication was dispensed or obtained. OUTPT AZELASTINE 137MCG/SPRAY 200D NASAL INHL (Status = Active) SPRAY 1 SPRAY INTO EACH NOSTRIL ONCE DAILY FOR SEASONAL RUNNY NOSE Rx# [id number] Last Released: 01/01/24 Qty/Days Supply: 09/03 Rx Expiration Date: 01/01/25 Refills Remainin Indication: FOR SEASONAL RUNNY NOSE OUTPT CETIRIZINE HCL 10MG TAB (Status = ) TAKE ONE TABLET BY MOUTH ONCE DAILY FOR ALLERGIES Rx# [id number] Last Released: 01/01/24 Qty/Days Supply: Rx Expiration Date: 03/31/24 Refills Remainin Indication: FOR ALLERGIES OUTPT CHOLECALCIF 50MCG (D3-2,000UNIT) TAB (Status = Active) TAKE ONE TABLET BY MOUTH ONCE DAILY FOR VITAMIN SUPPLEMENTATION Rx# [id number] Last Released: 05/09/24 Qty/Days Supply: 100 Rx Expiration Date: 06/21/24 Refills Remainin OUTPT DM 10/GUAIFENESN 100MG/5ML (AF & SF) LIQ (Status = Active) TAKE 5 MLS BY MOUTH EVERY 6 HOURS NEEDED FOR COUGH Rx# [id number] Last Released: 04/29/24 Qty/Days Supply: 10 Rx Expiration Date: 04/30/25 Refills Remainin Indication: FOR COUGH OUTPT OMEPRAZOLE 20MG EC CAP (Status = Active) TAKE ONE CAPSULE BY MOUTH ONCE DAILY Rx# [id number] Last Released: 05/09/24 Qty/Days Supply: Rx Expiration Date: 11/08/24 Refills Remainin Indication: FOR EXCESSIVE PRODUCTION OF STOMACH ACID Non-VA PROBIOTIC (CULTURELLE DIGESTIVE DAILY) CAP/TAB TAKE BY MOUTH ONCE DAILY Sep 17, 2022 OUTPT TAMSULOSIN HCL 0.4MG CAP (Status = Active) TAKE ONE CAPSULE BY MOUTH ONCE DAILY FOR 10 DAYS Rx# [id number] Last Released: 05/04/24 Qty/Days Supply: 05/14 Rx Expiration Date: 06/02/24 Refills Remainin SUPPLIES /roberto/ MARIA ANTONIA DONG MD SURGEON Signed: 05/29/2024 15:53 MARIA ANTONIA DONG [facility] [place] [facility]
--- OUTSIDE RECORDS SUMMARY | 2024-10-20 10:10 | XMS_ITS ---
Author Name [facility] [place] [facility] [place] [facility] Address [address] [place] [address] Care Team Providers Care Imaging Account Manager Name Role Phone LORETTA HANSON Primary [...] [place] H Aug 05, 2021 01 [id number] ELVIN WALSH PATIENT Selected Encounter This section [...] AM PRIMARY 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ed counseling INES [facility] [place] [facility] Plan of Treatment: Future Appointments (+ 6 months) and Future Tests (+/- 45 days) The Plan of Treatment section includes future care activities for the patient from all [place] [facility]. This section includes future appointments and [...] [facility] [place] [facility] May 22, 2024 01:30 PM AMBULATORY - MEDICINE [facility] [place] [facility] May 29, 2024 02:00 PM AMBULATORY - MEDICINE [place] [facility] [place] [facility] Jun 05, 2024 10:00 AM AMBULATORY - MEDICINE [facility] [place] [facility] Jun 05, 2024 02:00 PM AMBULATORY - MEDICINE [facility] [place] [facility] Jun 05, 2024 02:45 PM AMBULATORY - NONE [facility] [place] [facility] Jun 17, 2024 08:00 AM AMBULATORY - PSYCHIATRY [facility] [place] [facility] Jun 18, 2024 08:30 AM AMBULATORY - MEDICINE [facility] [place] [facility] Jun 18, 2024 11:00 AM AMBULATORY - PSYCHIATRY [facility] [place] [facility] Jun 26, 2024 09:00 AM AMBULATORY - MEDICINE [facility] [place] [facility] Jul 13, 2024 09:00 AM AMBULATORY - MEDICINE [facility] [place] [facility] Jul 23, 2024 11:30 AM AMBULATORY - MEDICINE [facility] [place] [facility] Aug 03, 2024 01:00 PM AMBULATORY - MEDICINE [facility] [place] [facility] Aug 06, 2024 02:30 PM AMBULATORY - MEDICINE [facility] [place] [facility] Aug 14, 2024 11:30 AM AMBULATORY - MEDICINE [facility] [place] [facility] Sep 02, 2024 01:00 PM AMBULATORY - SURGERY RADHA [place] [facility] Sep 02, 2024 01:00 PM [facility]UL[place] [facility] [place] [facility] Sep 03, 2024 03:00 PM AMBULATORY - MEDICINE [facility] Sep 14, 2024 10:30 AM [facility] Sep 28, 2024 10:30 AM [facility] Active, Pending, and Scheduled Orders This section includes a listing of several types of active, pending, and scheduled orders, including clinic medications orders, diagnostic test orders, procedure orders and consult orders; where the start date of the order is 45 days before the date of the Encounter or 45 days after the date of theEncounter. The data comes from all [place] treatment facilities. Test Date/Time Test Type Test Details Facility Name Jun 03, 2024 12:30 PM Consult Order DERMATOLOG Y/NHM (OUTPT) Cons Wet End Supervisor's Choice [facility] Jun 18, 2024 12:00 AM Laboratory - Chemi stry Order DRUGS OF ABUSE URINE (DRUG) SP [facility] Lab Results: +/- 30 days of [...] Range Comment Jun 05, 2024 02:23 PM [facility] CT/GC DNA PANEL(IN-HOUSE) Specimen Type: URINE Comment: Test performed on the [employer] Genexpert. A negative test results does not exclude the possibility of infection because results may be affected by improper specimen collection, concurrent antibiotic therapy, or the number of organisms in the specimen which may be below the sensitivity of the test. Ordering Provider: MAR HANSON Report Released Date/Time: Jun 05, 2024 02:02 PM Reporting Lab: [address] [address] Performing Lab: [address] [address] GC PCR NOT DETECTED Not Detected CT PCR NOT DETECTED Not Detected Jun 05, 2024 02:23 PM [facility] MICROSCOPIC AUTOMATED, URINE Specimen Type: URINE Comment: If Glucose = >500 and Ketones are positive, please alert the Physician. Ordering Provider: MAR HANSON Report Released Date/Time: Jun 05, 2024 02:02 PM Reporting Lab: [address] [address] Performing Lab: [address] [address] UA WBC 0-5 /[HPF] 0-5 UA MUCUS FEW /[LPF] Trace UA RBC 11-20 /[HPF] H 0-3 Jun 05, 2024 02:23 PM [facility] URINALYSIS CLEAN CATCH Specimen Type: URINE Comment: If Glucose = >500 and Ketones are positive, please alert the Physician. Ordering Provider: MAR HANSON Report Released Date/Time: Jun 05, 2024 02:02 PM Reporting Lab: [address] [address] Performing Lab: [address] [address] UA COLOR Light-Yellow Yellow UA APPEARANCE Clear [...] 26, 2023 10:00 AM [place] FORMER USER [facility] Tobacco Use History This section includes a history of the smoking, or tobacco-related health factors, that were collected on or before the date of the Encounter. The data comes from the [place] facility where the Encounter took place. Date/Time Smoking Status/Tobacco Use Comment F acility Aug 26, 2023 10:00 AM [place] [facility] Apr 11, 2022 11:00 AM [place] Apr 11, 2022 11:00 AM [place] QU[place] 15 YRS OR MORE [facility] Advance Directives: All historical and current [...] Sep 27, 2005 ADVANCE DIRECTIVE SHARLENE SIDHU [facility] Sep 10, 2005 ADVANCE DIRECTIVE DISCUSSION FRANCE RODRIGEZ [facility] Aug 14, 2004 ADVANCE DIRECTIVE [...] ABDOMEN AND PELVIS WITHOUT CONT.: ELVIN REYNA [id number] -1975 M Exm Date: JUN 05, 2024@14:27 Req Phys: LORETTA HANSON Loc: CWM/NO/PACT 7 (Req'g Loc) Img Loc: NHM/CT Service: Unknown [place] [facility] [facility] [place], [place] [id number] (Case [id number] COMPLETE) CT ABDOMEN AND PELVIS WITHOUT CON(CT Detailed) CPT:57553 Reason for Study: lower abdominal pain Clinical History: h/o kidney stone, having worsening pain Report Status: Verified Date Reported: JUN 07, 2024 Date Verified: JUN 07, 2024 Business Objects Architect E-Sig: Report: CT ABDOMEN AND PELVIS WITHOUT [...] made. The result was communicated to Rodo Chrisitan on 06/07/2024 at 6:41 PST with read-back verification. READING PHYSICIAN: Rashida Hawk MD -[phone] 06/07/2024 6:44 PST [facility] National Teleradiology Program [phone] (For Medical Practitioner Use Only) Attention Patients / Veterans: If you have questions or concerns about these test results, please contact your ordering provider or primary care team. Primary Diagnostic Code: CRITICAL ABNORMALITY Primary Interpreting Staff: RADIOLOGY,OUTSIDE SERVICE, Staff Physician / RADIOLOGY,OUTSIDE SERVICE [facility] Pathology Reports: +/- 30 days of [...] 02:23 PM LR MICROBIOLOGY REPORT: Reporting Lab: [facility] [CLIA# [id number]] [address] [place] [id number] Accession [UID]: [id number] [[id number]] Received: Jun 05, 2024@14:23 Collection sample: URINE CLEAN CATCH Collection date: Jun 05, 2024 14:23 Site/Specimen: URINE Provider: LORETTA HANSON Test(s) ordered: URINE CULTURE(MWROX).......... completed: Jun 08, 2024 09:02 * BACTERIOLOGY FINAL REPORT => Jun 08, 2024 09:02 TECH CODE: [id number] Bacteriology Remark(s): NO GROWTH IN 24 HOURS, FINAL REPORT TO FOLLOW. FINAL AEROBIC REPORT: NO GROWTH =--=--=--=--=--=--=--=--=--= --=--=--=--=--=--=--=--=--=- -=--=--=--=--=--=--=-- Performing Laboratory: Bacteriology Report Performed By: [facility] [CLIA# [id number]] [address] [place] [address] CYRUS ESPINOZA [facility] [place] [facility] Jun 02, 2024 11:29 AM LR SURGICAL PATHOLOGY REPORT: LOCAL TITLE: LR SURGICAL PATHOLOGY REPORT STANDARD TITLE: PATHOLOGY DIAGNOSTIC STUDY REPORT DATE OF NOTE: JUN 02, 2024@11:29:44 ENTRY DATE: JUN 02, 2024@11:29:44 AUTHOR: MAGDALENA STOCKTON MD EXP COSIGNER: URGENCY: STATUS: COMPLETED $APHDR Reporting Lab: [facility] WSN [facility] [CLIA# [id number]] [address] [place] [address] - - - - - - - [...] - - - PATHOLOGY REPORT Accession No. [facility] 533 - - - - - - [...] - - - BRIEF CLINICAL HISTORY: SP 857 Clinicl Hx: 48 year old man with [...] - - - PATHOLOGY REPORT Accession No. [facility] 24 533 - - - - - - - - - - - - - - - - - - - - - - - - - - - - - - - - - - - - - - - - Gross description: [facility] 25 [id number];;1;Melinda REYNA This is a [facility] case number [facility] 24 533. Received in formalin [...] lower back: Hemangioma, completely excised. CPT code 45797 /roberto/ MAGDALENA STOCKTON MD Board Certified Dermatopathologist Signed Jun 02, 2024@11:29 Performing Laboratory: Surgical Pathology Report Performed By: [facility] [CLIA# [id number]] [address] [place] [address] $FTR - - - - - - [...] - ELVIN REYNA JR STANDARD FORM 515 ID:[id number] SEX:M :1975 AGE: 48 LOC:CWM/NO/GS PCP: Loretta Hanson, ADELE /roberto/ MAGDALENA STOCKTON MD Board Certified Dermatopathologist Signed: 06/02/2024 11:29 MAGDALENA STOCKTON MD [facility] Encounter Notes: All associated encounter notes This section contains the clinical notes associated to the Encounter. Date/Time Encounter Note(s) Provider Source May 13, 2024 09:19 [facility]: LOCAL TITLE: AMBULATORY/OUTPATIENT CARE NOTE STANDARD TITLE: PRIMARY CARE OUTPATIENT NOTE DATE OF NOTE: MAY 13, 2024@09:19 ENTRY DATE: MAY 13, 2024@09:19:19 AUTHOR: INGRID CHAMORRO COSIGNER: URGENCY: STATUS: COMPLETED F: Walk In D/A: Editht presents to primary care with complaint of groin pain since last night. Editht recently had ED visit at [facility] on 05/03 for right ureter 3mm stone. [...] was feeling no pain and stopped Tamsulosin. Vet reports last night he felt pain in his groin radiating to his right testicle, states pain is 3-4/10. Editht again started Tamsulosin thinking he did not completely pass stone. Vet states he felt joint aches, nausea, headache and sweats after taking Tamsulosin. He ended up going back to [facility] ED last evening due to this. Editht [...] there was a long wait for this. Editht ended up leaving ED. He comes today [...] clinic ad ryland. /roberto/ Ingrid ESTRADA RN CNBryce Primary Care RN Signed: 05/13/2024 09:29 Receipt Acknowledged By: 05/13/2024 09:42 /roberto/ Loretta Hanson DNP, FINANCE EFFECTIVENESS MANAGER-BC, MARILYN Primary Care Nurse Practitioner [facility]
--- OUTSIDE RECORDS SUMMARY | 2024-10-20 10:10 | XMS_ITS | Continuity of Care Document ---
Author Name [facility] Organization [facility] Care Team Providers Care Criminal Investigator Customs Name Role Phone [facility] Unavailable Unavailable Problems Combined list of problems from Department of Defense and Veterans Affairs facilities. It does not include entries that were removed or entered in error. Problem Status Onset Date Problem Type Date of Resolution Comments Source Adjustment disorder with mixed emotional features Active Condition [facility] Adjustment reaction with mixed disturbance of emotion (SNOMED CT 94962932) Active Condition [facility] Alcohol Dependence * (ICD-9-CM 303.90/303.91) Active Condition Mar 18, 2006 Entered By: DILMA JARRELL Comment: In Remission [facility] Alcohol dependence syndrome (SNOMED CT 31126231) Active Condition [facility] Anxiety (SCT 72410157) Active Condition [facility] Asthma - currently active (SNOMED CT 860197725) Active Condition [place] Attention deficit hyperactivity disorder, predominantly inattentive type Active Condition [facility] Attn Defic w/Hyperactiv. Active Condition [facility] Poon's esophagus Active Condition [facility] Depressive disorder Active Condition [facility] Esophageal stricture Active Condition [facility] Family history of diabetes mellitus Active Condition [facility] Fatty liver Active Condition [facility] Gallbladder polyp Active Condition Au g 2022 Entered By: ILDA HANSON Comment: repeat abdominal u/s March 2024 [facility] Gastroesophageal reflux disease Active Condition [facility] GERD - Gastro-Esophageal Reflux Disease (SCT 072119966) Active Condition [facility] GERD * (ICD-9-CM 530.81) Active Condition [facility] Hiatal hernia Active Condition [facility] Hyperlipidemia Active Condition [facility] Hyperlipidemia (SCT 91057732) Active Condition [facility] Hyperlipidemia (SNOMED CT 57393123) Active Condition [place] Hyperlipidemia (SNOMED CT 93355100) Active Condition Apr 12, 2005 Entered By: CAITLYN JENKINS Comment: labs of 08/09 [place] Hyperparathyroidism Active Condition [facility] INSOMNIA, unspecified (ICD-9-CM 780.52) Active Condition [facility] Kidney stone Active Condition [facility] Major Depression, recurrent (ICD-9-CM 296.30) Active Condition [facility] Mild depression (SNOMED CT 704469897) Active Condition [facility] Ring's metatarsalgia, neuralgia, or neuroma Active Condition [facility] Obesity (SNOMED CT 348845599) Active Condition [place] Other and unspecified alcohol dependence, in remission (ICD-9-CM 303.93) Active Condition [facility] Overweight Active Condition [facility] Pain in right arm Active Condition [facility] Sleep apnea Active Condition [facility] Verruca Active Condition [facility] Cannabis dependence, episodic use Inactive Condition 01/19/2010 [facility] Leukocytosis Inactive Condition 08/10/2005Apr Entered By: CAITLYN JENKINS Comment: WBC = 19K on 04/12/05 [place] Other and unspecified alcohol dependence, episodic drinking behavior Inactive Condition 07/11/2010 [facility] Diagnosis: ICD-10-CM Z72.3 Lack of physical exercise Active Diagnosis [facility] Diagnosis: ICD-10-CM H81.11 Benign paroxysmal vertigo, right ear Active Diagnosis [facility] Diagnosis: ICD-10-CM H52.223 Regular astigmatism, bilateral Active Diagnosis [facility] Diagnosis: ICD-10-CM M77.41 Metatarsalgia, right foot Active Diagnosis [facility] Diagnosis: ICD-10-CM M79.674 Pain in right toe(s) Active Diagnosis [facility] Diagnosis: ICD-10-CM E21.3 Hyperparathyroidism, unspecified Active Diagnosis [facility] Diagnosis: ICD-10-CM K21.9 Gastro-esophageal reflux disease without esophagitis Active Diagnosis [facility] Diagnosis: ICD-10-CM L60.9 Nail disorder, unspecified Active Diagnosis [facility] Diagnosis: ICD-10-CM N20.0 Calculus of kidney Active Diagnosis [facility] Diagnosis: ICD-10-CM Z13.6 Encounter for screening for cardiovascular disorders Active Diagnosis [facility] Diagnosis: ICD-10-CM K22.70 Poon's esophagus without dysplasia Active Diagnosis [facility] Diagnosis: ICD-10-CM L60.0 Ingrowing nail Active Diagnosis [facility] Diagnosis: ICD-10-CM F90.0 Attn-defct hyperactivity disorder, predom inattentive type Active Diagnosis [facility] Diagnosis: ICD-10-CM L60.3 Nail dystrophy Active Diagnosis [facility] Diagnosis: ICD-10-CM R10.30 Lower [...] [facility] Diagnosis: ICD-10-CM G47.33 Obstructive sleep apnea (adult) (pediatric) Active Diagnosis [facility] Diagnosis: ICD-10-CM K11.21 Acute sialoadenitis Active Diagnosis [facility] Diagnosis: ICD-10-CM F41.9 Anxiety disorder, unspecified Active Diagnosis [facility] Diagnosis: ICD-10-CM M79.601 Pain in right arm Active Diagnosis [facility] Diagnosis: ICD-10-CM Z04.9 Encounter for examination and observation for unsp reason Active Diagnosis [facility] Diagnosis: ICD-10-CM L71.8 Other rosacea Active Diagnosis [facility] Diagnosis: ICD-10-CM H01.004 Unspecified blepharitis left upper eyelid Active Diagnosis [facility] Diagnosis: ICD-10-CM Z46.0 Encounter for fit/adjst of spectacles and contact lenses Active Diagnosis [facility] Diagnosis: ICD-10-CM S66.911S Strain of unsp musc/fasc/tend at wrs/hnd lv, r hand, sequela Active Diagnosis [facility] Diagnosis: ICD-10-CM S66.911A Strain of unsp musc/fasc/tend at wrs/hnd lv, r hand, init Active Diagnosis [facility] Diagnosis: ICD-10-CM J01.90 Acute sinusitis, unspecified Active Diagnosis [facility] Medications Combined list of outpatient medications from [...] TWICE DAILY FOR INFECTIO N ORAL 02/20/2024 [id number] MACHELLE DAVID 2023 20 [facility] AZELASTINE HCL 137MCG/SPRA Y INHL,NASAL, 30ML SPRAY 1 SPRAY INTO EACH NOSTRIL ONCE DAILY FOR SEASONAL RUNNY NOSE NASAL DISCONT INUED BY PROVIDE R 01/01/2025 [id number] 4 LORETTA HANSON 2023 1 [facility] BUSPIRONE HCL 5MG TAB TAKE ONE-HALF TABLET BY MOUTH ONCE DAILY ORAL DISCONT INUED BY PROVIDE R 09/05/2024 [id number] 4 MATT GALVAN 2023 15 [facility] CALCIUM 200MG (CA CITRATE-950 MG) TAB TAKE THREE TABLETS BY MOUTH TWICE DAILY FOR CALCIUM SUPPLEME NTATION ORAL ACTIVE 09/04/2025 [id number] 5 CECILIA STORY ICE 2024 600 [facility] CETIRIZINE HCL 10MG TAB TAKE ONE TABLET BY MOUTH ONCE DAILY FOR ALLERGIE S ORAL 03/31/2024 [id number] 4 LORETTA HANSON 2023 90 [facility] CHOLECALCIF ARAM 50MCG (2,000UNIT) TAB TAKE ONE TABLET BY MOUTH ONCE DAILY FOR VITAMIN SUPPLEME NTATION ORAL ACTIVE 08/20/2025 [id number] 5 LORETTA HANSON 2024 100 [facility] CHOLECALCIF ARAM 50MCG (2,000UNIT) TAB TAKE ONE TABLET BY MOUTH ONCE DAILY FOR VITAMIN SUPPLEME NTATION ORAL DISCONT INUED BY PROVIDE R 06/21/2024 [id number] 4 LORETTA HANSON 2022 100 [facility] CIPROFLOXAC IN HCL 500MG TAB TAKE ONE TABLET BY MOUTH TWICE DAILY FOR INFECTIO N ORAL DISCONT INUED BY PROVIDE R 09/05/2024 [id number] 5 Mariah GIBBONS 2024 10 [facility] DEXAMETHASO NE 0.1%/TOBRAM YCIN 0.3% OINT,OPH APPLY SMALL AMOUNT INTO THE LEFT EYE AT BEDTIME OPHTHA LMIC 12/26/2023 [id number] 4 BRANDOSherwin ICHELE 2023 1 [facility] DEXTROMETHO RPHAN HBR 10MG/GUAIFE NESIN 100MG/5ML (AF & SF) LIQUID TAKE 5 MLS BY MOUTH EVERY 6 HOURS NEEDED FOR COUGH ORAL DISCONT INUED BY PROVIDE R 04/30/2025 [id number] 4 MACHELLE DAVID 2023 240 [facility] [place] ESCITALOPRA M OXALATE 5MG TAB TAKE ONE-HALF TABLET BY MOUTH ONCE DAILY FOR 14 DAYS, THEN TAKE ONE TABLET ONCE DAILY FOR MOOD/DEP RESSION ORAL DISCONT INUED BY PROVIDE R 10/17/2023 [id number] 4 MATT GALVAN 2023 38 [facility] [place] MAGNESIUM OXIDE 420MG TAB TAKE ONE TABLET BY MOUTH ONCE DAILY FOR MAGNESIU M SUPPLEME NTATION ORAL ACTIVE 10/15/2025 [id number] 5 LORETTA HANSON 2024 90 [facility] [place] [facility] MUPIROCIN 2% OINT,TOP APPLY THIN LAYER TOPICALL Y TWICE DAILY FOR SKIN INFECTIO N TOPICA L ACTIVE 10/30/2024 [id number] 5 LORETTA HANSON 2024 44 [facility] [place] [facility] OMEPRAZOLE 20MG CAP,EC TAKE TWO CAPSULES BY MOUTH ONCE DAILY FOR EXCESSIV E PRODUCTI ON OF STOMACH ACID (NOTE DOSE) ORAL ACTIVE 07/24/2025 [id number] 4 LORETTA HANSON 2023 180 [facility] [place] [facility] OMEPRAZOLE 20MG CAP,EC TAKE ONE CAPSULE BY MOUTH ONCE DAILY ORAL DISCONT INUED (EDIT) 11/08/2024 [id number] 4 LORETTA HANSON 2023 90 [facility] [place] OMEPRAZOLE 20MG CAP,EC TAKE ONE CAPSULE BY MOUTH ONCE DAILY ORAL DISCONT INUED 09/04/2023 [id number] 4 HANSONLORETTA BAUMAN Jessa 2022 90 [facility] OTHER CAP/TAB TAKE RACHANA WORKZ MUSHROOM COMPLEX BY MOUTH ONCE DAILY ORAL ACTIVE MATT GALVAN 2023 [facility] TAMSULOSIN HCL 0.4MG CAP TAKE ONE CAPSULE BY MOUTH ONCE DAILY FOR 10 DAYS ORAL 06/02/2024 [id number] 4 ZEFERINO DING 2023 10 [facility] Allergies, Adverse Reactions, Alerts Combined list of allergies from Department of Defense and Veterans Affairs facilities. It does not include entries that were removed or entered in error. Substance Category Reaction Severity Reaction type Status Date Reported Comments Source CHICKEN Propensity to adverse reactions to food (finding) active 12/29/2020 [facility] EGGS Propensity to adverse reactions to substance (finding) active 12/29/2020 [facility] SHRIMP Propensity to adverse reactions to food (finding) Anxiety, Urticaria, Eruption MODERATE active 05/15/2021 [facility] Immunizations Combined list of available immunizations from the Department of Defense and Veterans Affairs facilities. Immunization Series Date Given Administered By Site Reaction Lot Number CVX Code Drug Blanket Folder Status Comments Source INFLUENZA, INJECTABLE, QUADRIVALENT, PRESERVATIVE FREE 2023 GIANCARLO CHAMORRO RAMSEY LEFT DELTO ID [id number] A 150 complet ed [facility] HEP A-HEP B 2 2022 GIANCARLO CHAMORRO RAMSEY LEFT DELTO ID [id number] 104 complet ed [facility] [place] [facility] HEP A-HEP B 1 2022 IGOR GRACIA HY E RIGHT DELTO ID [id number] 104 complet ed [facility] [place] [facility] PNEUMOCOCCAL CONJUGATE PCV20, POLYSACCHARID E [id number] CONJUGATE, ADJUVANT, PF 2022 ADEEL GRACIAOT HY E LEFT DELTO ID [id number] 216 complet ed [facility] INFLUENZA, INJECTABLE, QUADRIVALENT, PRESERVATIVE FREE 2021 ASHUT[place]H RIVERA RIGHT DELTO ID [id number] 150 complet ed [facility] COVID-19 (MODERNA), MRNA, LNP-S, BIVALENT BOOSTER, PF, 50 MCG/0.5 ML OR 25MCG/0.25 ML DOSE 1 2021 229 complet ed MOD; [id number]; 3 [facility] PNEUMOCOCCAL POLYSACCHARID E [id number] 2021 33 complet ed [place] COVID-19 (MODERNA), MRNA, LNP-S, PF, 100 MCG OR 50 MCG DOSE 3 2020 207 complet ed [facility] COVID-19 (MODERNA), MRNA, LNP-S, PF, 100 MCG/0.5 ML DOSE 2 2020 207 complet ed MOD; [id number]; 1 [place] COVID-19 (MODERNA), MRNA, LNP-S, PF, 100 MCG/0.5 ML DOSE 1 2020 207 complet ed MOD; [id number]; 1 [place] TDAP 2018 NONE 115 complet ed [place] FLU,3 YRS (HISTORICAL) 2005 88 complet ed BATH DOMICIL IARY TD(ADULT) UNSPECIFIED FORMULATION 2005 139 complet ed [facility] FLU REFUSED (HISTORICAL) 1999 complet ed [place] TD(ADULT) UNSPECIFIED FORMULATION 1994 139 complet ed [facility] Results Combined list of recent chemistry, hematology and other laboratory results from Department of Defense and Veterans Affairs, ranging from 15 months to all on record, depending upon the facility. Order Name Results Value Reference Range Date Interpretation Specimen Comments Source VITAMIN B12 COBALAMIN (VITAMIN B12) [MASS/VOLU ME] IN SERUM OR PLASMA 332 pg/mL 200 - 900 09/30 Specimen Type: SERUM No comment entered. Ordering Provider: ILDA HANSON Report Released Date/Time: Sep 30, 2024 02:42 PM Reporting Lab: [address] [address] Performing Lab: [facility] [place] [facility] [address] [facility] [address] [facility] MAGNESIU M MAGNESIUM [MASS/VOLU ME] IN SERUM OR PLASMA 1.7 mg/dL 1.6 - 2.6 09/30 Specimen Type: SERUM No comment entered. Ordering Provider: ILDA HANSON Report Released Date/Time: Sep 30, 2024 02:41 PM Reporting Lab: [facility] [place] [facility] [address] [facility] [address] Performing Lab: [facility]ITAL[facility] [address] [facility] [address] [facility] TSH THYROTROPI N [UNITS/VOL UME] IN SERUM OR PLASMA 1.59 u[IU]/mL 0.35 - 5.00 09/03 Specimen Type: SERUM No comment entered. Ordering Provider: ILDA HANSON Report Released Date/Time: Jul 23, 2024 12:38 PM Reporting Lab: [facility]N [facility]ITALUSE[address] [address] Performing Lab: [facility]ITALUSE[address] [address] [facility]N [facility]ITALUSE [facility] VITAMIN D (25-OH) 25-HYDROXY VITAMIN D3 [MASS/VOLU ME] IN SERUM OR PLASMA 35 ng/mL 20 - 50 09/03 Specimen Type: SERUM No comment entered. Ordering Provider: ILDA HANSON Report Released Date/Time: Jul 23, 2024 12:38 PM Reporting Lab: [facility]PITALUSETS [address] [address] Performing Lab: [facility]ITALUSE[address] [address] [facility]ITALUSE [facility] PTH INTACT PARATHYRIN .INTACT [MASS/VOLU ME] IN SERUM OR PLASMA 96.0 pg/mL 8.7 - 77.1 09/03 H Specimen Type: SERUM No comment entered. Ordering Provider: RAKEL STORY Report Released Date/Time: Aug 30, 2024 05:36 PM Reporting Lab: [place] [facility] [place] [facility] [address] [facility] [address] Performing Lab: [place] [facility] [place] [facility] [address] [facility] [address] [place] [facility] [place] [facility] CALCIUM CALCIUM [MASS/VOLU ME] IN SERUM OR PLASMA 9.3 mg/dL 8.5 - 10.2 09/03 Specimen Type: SERUM No comment entered. Ordering Provider: RAKEL STORY Report Released Date/Time: Aug 30, 2024 05:36 PM Reporting Lab: [place] [facility] [place] [place] [address] [address] Performing Lab: [place] [facility] [address] [address] [facility] BASIC METABOLI C PANEL (non-fas ting) UREA NITROGEN [MASS/VOLU ME] IN SERUM OR PLASMA 18 mg/dL 7 - 25 09/03 Specimen Type: SERUM No comment entered. Ordering Provider: RAKEL STORY Report Released Date/Time: Aug 30, 2024 05:36 PM Reporting Lab: [place] [facility] [place] [address] [address] Performing Lab: [place] [facility] [address] [address] [place] [facility] [facility] [facility] BASIC METABOLI C PANEL (non-fas ting) GLUCOSE [MASS/VOLU ME] IN SERUM OR PLASMA 94 mg/dL 65 - 100 09/03 Specimen Type: SERUM No comment entered. Ordering Provider: RAKEL STORY Report Released Date/Time: Aug 30, 2024 05:36 PM Reporting Lab: [place] [facility] [facility] [address] [facility] [address] Performing Lab: [place] [facility] [address] [address] [place] [facility] [facility] [facility] BASIC METABOLI C PANEL (non-fas ting) SODIUM [MOLES/VOL UME] IN SERUM OR PLASMA 137 mmol/L 135 - 145 09/03 Specimen Type: SERUM No comment entered. Ordering Provider: RAKEL STORY Report Released Date/Time: Aug 30, 2024 05:36 PM Reporting Lab: [facility] COUNTYTRN [address] [address] Performing Lab: [facility] [address] [address] [facility] BASIC METABOLI C PANEL (non-fas ting) POTASSIUM [MOLES/VOL UME] IN SERUM OR PLASMA 4.0 mmol/L 3.5 - 5.0 09/03 Specimen Type: SERUM No comment entered. Ordering Provider: RAKEL STORY Report Released Date/Time: Aug 30, 2024 05:36 PM Reporting Lab: [address] [address] Performing Lab: [facility] [address] [address] [facility] BASIC METABOLI C PANEL (non-fas ting) CHLORIDE [MOLES/VOL UME] IN SERUM OR PLASMA 106 mmol/L 100 - 110 09/03 Specimen Type: SERUM No comment entered. Ordering Provider: RAKEL STORY Report Released Date/Time: Aug 30, 2024 05:36 PM Reporting Lab: [facility] [address] [address] Performing Lab: [facility] COUNTYTRN [address] [address] [facility] BASIC METABOLI C PANEL (non-fas ting) CARBON DIOXIDE, TOTAL [MOLES/VOL UME] IN SERUM OR PLASMA 23 meq/L 20 - 30 09/03 Specimen Type: SERUM No comment entered. Ordering Provider: RAKEL STORY Report Released Date/Time: Aug 30, 2024 05:36 PM Reporting Lab: [facility] [address] [address] Performing Lab: [facility] [address] [address] [facility] BASIC METABOLI C PANEL (non-fas ting) CREATININE [MASS/VOLU ME] IN SERUM OR PLASMA 0.87 mg/dL 0.50 - 1.40 09/03 Specimen Type: SERUM No comment entered. Ordering Provider: RAKEL STORY Report Released Date/Time: Aug 30, 2024 05:36 PM Reporting Lab: [address] [address] Performing Lab: [address] [address] [facility] BASIC METABOLI C PANEL (non-fas ting) GLOMERULAR FILTRATION RATE/1.73 SQ M.PREDICTE D [VOLUME RATE/AREA] IN SERUM, PLASMA OR BLOOD BY CREATININE -BASED FORMULA (CKD-EPI 2020) >90mL/mi n 60 09/03 Specimen Type: SERUM No comment entered. Ordering Provider: RAKEL STORY Report Released Date/Time: Aug 30, 2024 05:36 PM Reporting Lab: [address] [address] Performing Lab: [address] [address] [facility] OCCULT BLOOD FIT X1 SCREEN(I N-HOUSE) HEMOGLOBIN .GASTROINT ESTINAL.LO WER [PRESENCE] IN STOOL BY IMMUNOASSA Y Negative 08/10 Specimen Type: FECES No comment entered. Ordering Provider: ILDA HANSON Report Released Date/Time: Apr 24, 2024 02:10 PM Reporting Lab: [address] [address] Performing Lab: [address] [address] [facility] CT/GC DNA PANEL(IN -HOUSE) NEISSERIA GONORRHOEA E DNA [PRESENCE] IN URINE BY ABELARDO WITH PROBE DETECTION NOT DETECTED 06/05 Specimen Type: URINE Comment: Test performed on the Cepheid Genexpert. A negative test results does not exclude the possibility of infection because results may be affected by improper specimen collection, concurrent antibiotic therapy, or the number of organisms in the specimen which may be below the sensitivity of the test. Ordering Provider: ILDA HANSON Report Released Date/Time: Jun 05, 2024 02:02 PM Reporting Lab: [facility]TRN [facility]ITALUSETS [address] [address] Performing Lab: [place] [facility] [facility]ITALUSETS [address] [address] [facility]N [facility]ITALUSE [facility] CT/GC DNA PANEL(IN -HOUSE) CHLAMYDIA TRACHOMATI S DNA [PRESENCE] IN URINE BY ABELARDO WITH PROBE DETECTION NOT DETECTED 06/05 Specimen Type: URINE Comment: Test performed on the Cepheid Genexpert. A negative test results does not exclude the possibility of infection because results may be affected by improper specimen collection, concurrent antibiotic therapy, or the number of organisms in the specimen which may be below the sensitivity of the test. Ordering Provider: ILDA HANSON Report Released Date/Time: Jun 05, 2024 02:02 PM Reporting Lab: [facility] [place] [address] [address] Performing Lab: [facility] TRN [facility]ITALUSETS [address] [address] [facility]ITALUSE [facility] MICROSCO PIC AUTOMATE D, URINE LEUKOCYTES [#/AREA] IN URINE SEDIMENT BY MICROSCOPY HIGH POWER FIELD 0-5/[HPF ] 0 - 5 06/05 Specimen Type: URINE Comment: If Glucose = >500 and Ketones are positive, please alert the Physician. Ordering Provider: ILDA HANSON Report Released Date/Time: Jun 05, 2024 02:02 PM Reporting Lab: [facility] [place] [address] [address] Performing Lab: [facility] COUNTYTRN [facility]ITALUSE[address] [address] [facility] EASTN [facility]CHUSE TS [facility] MICROSCO PIC AUTOMATE D, URINE MUCUS [#/AREA] IN URINE SEDIMENT BY MICROSCOPY LOW POWER FIELD FEW/[LPF ] 06/05 Specimen Type: URINE Comment: If Glucose = >500 and Ketones are positive, please alert the Physician. Ordering Provider: ILDA HANSON Report Released Date/Time: Jun 05, 2024 02:02 PM Reporting Lab: [facility] [place] [facility] [address] [facility] [address] Performing Lab: [facility] [place] [facility] [address] [facility] [address] [facility] [place] [facility] MICROSCO PIC AUTOMATE D, URINE ERYTHROCYT ES [#/AREA] IN URINE SEDIMENT BY MICROSCOPY HIGH POWER FIELD 11-20/[H PF] 0 - 3 06/05 H Specimen Type: URINE Comment: If Glucose = >500 and Ketones are positive, please alert the Physician. Ordering Provider: ILDA HANSON Report Released Date/Time: Jun 05, 2024 02:02 PM Reporting Lab: [facility] [place] [facility] [address] [facility] [id number] Performing Lab: [facility] [place] [facility] [address] [facility] [id number] [facility] [place] [facility] Vital Signs Combined list of inpatient and outpatient Vital Signs from Department of Defense and Veterans Affairs, ranging from 12 months to all on record, depending upon the facility. Vital Sign Value Date Comments Source SYSTOLIC BLOOD PRESSURE 134 09/30/19 25 14:28:51 [facility] DIASTOLIC BLOOD PRESSURE 84 025 14:28:51 [facility] PULSE OXIMETRY 97 09/30/2024 14:28:51 [facility] WEIGHT 234 09/30/2024 14:28:51 [facility] BMI 38 kg/m2 09/30/2024 14:28:51 [facility] PAIN 0 09/30/2024 14:28:51 [facility] TEMPERATURE 98 09/30/2024 14:28:51 [facility] PULSE 98 09/30/2024 14:28:51 [facility] RESPIRATION 16 09/30/2024 14:28:51 [facility] SYSTOLIC BLOOD PRESSURE 123 09/03/19 25 15:20:46 [facility] DIASTOLIC BLOOD PRESSURE 82 025 15:20:46 [facility] PULSE OXIMETRY 98 09/03/2024 15:20:46 [facility] WEIGHT 220 09/03/2024 15:20:46 [facility] BMI 36 kg/m2 09/03/2024 15:20:46 [facility] PAIN 0 09/03/2024 15:20:46 [facility] HEIGHT 66 09/03/2024 15:20:46 [facility] TEMPERATURE 98.1 09/03/2024 15:20:46 [facility] PULSE 90 09/03/2024 15:20:46 [facility] RESPIRATION 16 09/03/2024 15:20:46 [facility] TEMPERATURE 97 08/14/2024 11:35:12 [facility] SYSTOLIC BLOOD PRESSURE 146 08/06/19 25 14:16:01 [facility] DIASTOLIC BLOOD PRESSURE 85 025 14:16:01 [facility] PULSE OXIMETRY 96 08/06/2024 14:16:01 [facility] WEIGHT 229 08/06/2024 14:16:01 [facility] BMI 37 kg/m2 08/06/2024 14:16:01 [facility] PAIN 2 08/06/2024 14:16:01 [facility] HEIGHT 66 08/06/2024 14:16:01 [facility] TEMPERATURE 98.3 08/06/2024 14:16:01 [facility] PULSE 96 08/06/2024 14:16:01 [facility] RESPIRATION 20 08/06/2024 14:16:01 [facility] SYSTOLIC BLOOD PRESSURE 136 08/03/20 24 13:02:09 [facility] DIASTOLIC BLOOD PRESSURE 86 024 13:02:09 [facility] PULSE OXIMETRY 94 08/03/2024 13:02:09 [facility] WEIGHT 228 08/03/2024 13:02:09 [facility] BMI 37 kg/m2 08/03/2024 13:02:09 [facility] PAIN 6 08/03/2024 13:02:09 [facility] TEMPERATURE 98.5 08/03/2024 13:02:09 [facility] PULSE 91 08/03/2024 13:02:09 [facility] RESPIRATION 16 08/03/2024 13:02:09 [facility] Encounters Combined list of: 1) Encounters from [facility] facilities going backup to the last 18 months, not all VA inpatient encounters are included; 2) Encounters from the Department of Defense facilities going backup to 280 months. Location Location Details Encounter Type Encounter Number Reason For Visit Attending Provider ADM Date DC Date Status Disposition Source [facility] ULTRASOUND THERAPY [id number] Diagnos is: ICD-10- CM M79.601 Pain in right arm MACHONMARY LIE E 04/24 [facility] Outpatient Encounter [id number] 05/03 [facility] Outpatient Encounter [id number] 05/03 [facility] ULTRASOUND THERAPY [id number] Diagnos is: ICD-10- CM M79.601 Pain in right arm SHARAN,MARY LIE E 05/06 [facility] Out[facility]counter [id number] 05/07 [facility] Outpatient Encounter [id number] 05/08 [facility] EYE EXAM&TX ESTAB PT 1/>VST [id number] Diagnos is: ICD-10- CM H52.223 Regular astigma rudolph tidwell NOA H B 05/09 [facility] FIT SPECTACLES MULTIFOCAL [id number] Diagnos is: ICD-10- CM Z46.0 Encount er for fit/adj st of spectac les and contact lenses PUSHPA CHOWDHURY 05/10 [facility] ULTRASOUND THERAPY [id number] Diagnos is: ICD-10- CM M79.601 Pain in right arm SHARANMARY LIE E 05/21 [facility] OFF/OP EST DECEMBER X REQ PHY/QHP [id number] Diagnos is: ICD-10- CM Z71.89 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 ed credit support counselor sharad DEBBIECOCOINGRID 05/27 [facility] OFFICE O/P EST LOW 20-29 MIN [id number] Diagnos is: ICD-10- CM J01.90 Acute sinusit is, unspeci STEVE ScottNAH 05/27 [facility] REPAIR & ADJUST SPECTACLES [id number] Diagnos is: ICD-10- CM Z46.0 Encount er for fit/adj st of spectac les and contact lenses PAMELA SANTOS 05/31 [facility] ULTRASOUND THERAPY [id number] Diagnos is: ICD-10- CM M79.601 Pain in right arm MACHON,MARY LIE E 06/06 [facility] Outpatient Encounter [id number] 06/19 [facility] Outpatient Encounter [id number] 06/21 [facility] TUBING WITH HEATING ELEMENT [id number] [id number] Diagnos is: ICD-10- CM G47.33 Obstruc tive sleep apnea (adult) (pediat chris) GEETA PACE E P 07/08 [facility] OFF/OP EST MAY X REQ PHY/QHP [id number] [id number] Diagnos is: ICD-10- CM Z71.89 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 ed credit support counselor INGRID Simon 07/12 [facility] OFFICE O/P EST LOW 20-29 MIN [id number] Diagnos is: ICD-10- CM S66.911 A Strain of unsp musc/fa sc/tend at wrs/hnd lv, r hand, moomaryellen DAVIDSTEVEH 07/12 [facility] SELF-HELP/ PEER SVC PER 15MIN [id number] [id number] Diagnos is: ICD-10- CM 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 tivity disorde r, predom inatten tive type ADI GE R 07/15 [facility] Outpatient Encounter [id number] 07/25 [facility] OT EVAL LOW COMPLEX 30 MIN [id number] Diagnos is: ICD-10- CM S66.911 S Strain of unsp musc/fa sc/tend at wrs/hnd lv, r hand, dina TSANG,MARY LIE E 08/07 [facility] OFFICE O/P EST LOW 20 MIN [id number] Diagnos is: ICD-10- CM 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 Krysten Vargas 08/26 [facility] OFFICE O/P NEW SF 15 MIN [id number] [id number] Diagnos is: ICD-10- CM M77.41 Metatar salgia, right foot IRON,D AVID 08/27 [facility] Outpatient Encounter [id number] 08/28 [facility] PSYTX W PT 30 MINUTES [id number] [id number] Diagnos is: ICD-10- CM 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 tivity disorde r, predom inatten tive type PEGGY RAHMAN ON A 08/30 [facility] MTMS BY PHARM ADDL 15 MIN [id number] [id number] Diagnos is: ICD-10- CM F41.9 Anxiety disorde r, unspeci MATT Piedra 09/02 [facility] MTMS BY PHARM ADDL 15 MIN [id number] [id number] Diagnos is: ICD-10- CM F41.9 Anxiety disorde r, unspeci MATT Piedra 09/05 [facility] Outpatient Encounter [id number] 09/16 [facility] MTMS BY PHARM AUTOMATIC DATA PROCESSING PLANNER 15 MIN 90543-2.52 [id number] Diagnos is: ICD-10- CM Z71.89 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 ed credit support counselor ESVIN Rizvi 09/21 [facility] MTMS BY PHARM ADDL 15 MIN [id number] [id number] Diagnos is: ICD-10- CM F41.9 Anxiety disorde r, unspeci MATT Piedra 10/06 [facility] FIT SPECTACLES MULTIFOCAL [id number] [id number] Diagnos is: ICD-10- CM Z46.0 Encount er for fit/adj st of spectac les and contact lenses Wally LYNNE 10/31 [facility] Outpatient Encounter [id number] 11/[address] [facility] MTMS BY PHARM AUTOMATIC DATA PROCESSING PLANNER 15 MIN 06259-4.52 [id number] Diagnos is: ICD-10- CM Z71.89 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 ed credit support counselor ing ESVIN BUCKNER 11/05 [facility] Outpatient Encounter [id number] INGRID CHAMORRO 11/07 [facility] Outpatient Encounter [id number] INGRID CHAMORRO 11/11 [facility] Outpatient Encounter [id number] 11/20 [facility] Outpatient Encounter [id number] 11/20 [facility] Outpatient [facility]counter [id number] 11/21 [facility] OFF/OP EST MAY X REQ PHY/QHP [id number] [id number] Diagnos is: ICD-10- CM Z71.89 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 ed credit support counselor ing INGRID CHAMORRO 11/25 [facility] OFFICE O/P EST SF 10 MIN [id number] Diagnos is: ICD-10- CM H01.004 Unspeci fied blephar itis left upper eyelid STEVE DAVID 11/25 [facility] OFFICE O/P EST LOW 20 MIN [id number] Diagnos is: ICD-10- CM L71.8 Other rosacea MAI MICHAELS 11/25 [facility] Outpatient Encounter [id number] 11/28 [facility] THERAPEUTI C EXERCISES [id number] Diagnos is: ICD-10- CM M79.601 Pain in right arm MACHKELLEN,MARY LIE E 12/02 [facility] OFFICE O/P EST MOD 30 MIN [id number] [id number] Diagnos is: ICD-10- CM M77.41 Metatar salgia, right foot FOSTERTILA RLES D 12/04 [facility] THERAPEUTI C EXERCISES [id number] [id number] Diagnos is: ICD-10- CM M79.601 Pain in right arm MACHON,MARY LIE E 12/09 [facility] THERAPEUTI C EXERCISES [id number] [id number] Diagnos is: ICD-10- CM M79.601 Pain in right arm MACHON,MARY LIE E 12/16 [facility] THERAPEUTI C EXERCISES [id number] Diagnos is: ICD-10- CM M79.601 Pain in right arm MACHON,MARY LIE E 12/23 [facility] Out[facility] Encounter [id number] INGRID CHAMORRO 12/24 [facility] Outpatient Encounter [id number] SUSY MALDONADO MELVINA 12/24 [facility] OFF/OP EST MAY X REQ PHY/QHP [id number] Diagnos is: ICD-10- CM Z04.9 Encount er for examina tion and observa tion for unsp reason Sherwin STREETER 12/31 [facility] MANUAL THERAPY REGIONS [id number] [id number] Diagnos is: ICD-10- CM M79.601 Pain in right arm MACHON,MARY LIE E 01/06 [facility] MTMS BY PHARM ADDL 15 MIN [id number] Diagnos is: ICD-10- CM F41.9 Anxiety disorde r, unspeci fied MATT GALVAN 01/07 [facility] Out[facility] Encounter [id number] 01/20 [facility] OFF/OP EST MAY X REQ PHY/QHP [id number] Diagnos is: ICD-10- CM Z71.89 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 ed credit support counselor ing INGRID CHAMORRO 01/20 [facility] Outpatient Encounter [id number] 01[facility]20 [facility] OFFICE O/P EST LOW 20 MIN [id number] Diagnos is: ICD-10- CM K11.21 Acute siaload enitis STEVE DAVID 01/20 [facility] Out[facility] Encounter [id number] 02/18 [facility] POS AIRWAY PRESSURE FILTER [id number] Diagnos is: ICD-10- CM G47.33 Obstruc tive sleep apnea (adult) (pediat chris) ELY MARTI 02/23 [facility] Out[facility] Encounter [id number] 04/24 [facility] Out[facility] Encounter [id number] 04/24 [facility] OFFICE O/P EST LOW 20 MIN [id number] Diagnos is: ICD-10- CM K21.9 Gastro- esophag eal reflux disease without esophag itKrysten Carranza 04/24 [facility] Out[facility] Encounter [id number] 04/28 [facility] OFF/OP EST MAY X REQ PHY/QHP [id number] [id number] Diagnos is: ICD-10- CM 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.89 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 ed 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 support 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 INGRID Simon 04/29 [facility] OFFICE O/P EST LOW 20 MIN [id number] [id number] Diagnos is: ICD-10- CM J06.9 Acute upper respira tory infecti on, unspeci fiSTEVE Franklin 04/29 [facility] Out[facility] Encounter [id number] 05/03 [facility] Out[facility]counter [id number] 1.05/04 [facility] Outpatient Encounter [id number]/06 [facility] Out[facility] Encounter [id number] 1.05/06 [facility] Out[facility] Encounter [id number] 1.05/13 [facility] OFF/OP EST DECEMBER X REQ PHY/QHP [id number] [id number] Diagnos is: ICD-10- CM Z71.89 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 ed credit support counselor INGRID Simon 05/13 [facility] Out[facility] Encounter [id number] 1.05/15 [facility] Out[facility] Encounter [id number] 1.05/15 [facility] Out[facility] Encounter [id number] 05/19 [facility] Out[facility] Encounter [id number] 05/22 [facility] OFF/OP CNSLTJ NEW/EST LOW 30 [id number] Diagnos is: ICD-10- CM D18.01 Hemangi ghassan of skin and subcuta neous tissue GO,CAITIE S 05/22 [facility] INTMD RPR S/A/T/EXT 2.5 CM/< [id number] [id number] Diagnos is: ICD-10- CM D48.5 Neoplas m of uncerta in behavio r of skin GO,CAITIE S 05/29 [facility] Outpatient Encounter [id number] 05/29 [facility] Outpatient [facility]counter [id number] 05/29 [facility] Outpatient Encounter [id number] MAGDALENA STOCKTON MD 06/02 [facility] POSTOP FOLLOW-UP VISIT [id number] [id number] Diagnos is: ICD-10- CM D18.01 Hemangi ghassan of skin and subcuta neous tissue GO,CAITIE S 06/05 [facility] Outpatient Encounter [id number] 06[facility]05 [facility] Outpatient Encounter [id number] 06/05 [facility] OFFICE O/P EST LOW 20 MIN [id number] [id number] Diagnos is: ICD-10- CM R10.30 Lower abdomin al pain, unspeci fied Krysten HANSON J 06/05 [facility] Out[facility] Encounter [id number] 06/06 [facility] Outpatient [facility]counter [id number] 06/07 [facility] Outpatient [facility]counter [id number] 06/11 [facility] Outpatient Encounter [id number]/17 [facility] OFFICE O/P EST LOW 20 MIN [id number] [id number] Diagnos is: ICD-10- CM L60.3 Nail dystrop hy TILA ESPOSITO D 06/18 [facility] Out[facility] Encounter [id number] 06/18 [facility] MTMS BY PHARM ADDL 15 MIN [id number] [id number] Diagnos is: ICD-10- CM 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 tivity disorde r, predom inatten tive type MATT GALVAN 06/18 [facility] Outpatient Encounter [id number] 06/22 [facility] Outpatient Encounter [id number] 06/22 [facility] QNHP OL DIG ASSMT&MGMT 06-24 [id number] 1. Diagnos is: ICD-10- CM 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 tivity disorde r, predom inatten tive type HECTOR CHAUDHARI 06/24 [facility] OFFICE O/P EST MOD 30 MIN [id number] [id number] Diagnos is: ICD-10- CM L60.0 Ingrowi nilam ESPOSITO CHA RLES D 06/26 [facility] Out[facility] Encounter [id number] 06/26 [facility] Outpatient [facility]counter [id number] 06/29 [facility] Outpatient [facility]counter [id number] 06/29 [facility] Outpatient Encounter [id number] 06/30 [facility] POSTOP FOLLOW-UP VISIT [id number] Diagnos is: ICD-10- CM L60.0 Ingrowi nilam ESPOSITO CHA RLKARRIE D 07/13 [facility] En[facility] [id number] 07/15 [facility] [id number] 07/18 [facility] [id number] 07/20 [facility] [id number] 07/21 [facility] Encounter [id number] 07/23 [facility] HC PRO PHONE CALL 11-20 MIN [id number] Diagnos is: ICD-10- CM K21.9 Gastro- esophag eal reflux disease without esophag itis JOSE CONROY 07/23 [facility] OFFICE O/P EST HI 40 MIN [id number] Diagnos is: ICD-10- CM 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 Diagnos is: ICD-10- CM N20.0 Calculu s of kidney HANSON,W ILLIAM J 08/03 [facility] En[facility] [id number] [facility] Encounter [id number] [facility] En[facility] [id number] [facility] Encounter [id number] [facility] OFFICE O/P EST MOD 30 MIN [id number] Diagnos is: ICD-10- CM N20.0 Calculu s of kidney MARGIEW MOYM J 08/06 [facility] En[facility] [id number] [facility] OFFICE O/P EST SF 10 MIN [id number] Diagnos is: ICD-10- CM L60.9 Nail disorde r, unspeci TILA Dwyer 08/14 [facility] Encounter [id number] [facility] [place] [id number] Diagnos is: ICD-10- CM K21.9 Gastro- esophag eal reflux disease without esophag itis JENNIFER PHELAN 09/02 [facility] Out[facility] Encounter [id number] 09/02 [facility] Out[facility] Encounter [id number] 09/02 [facility] OFF/OP CNSLTJ NEW/EST MOD 40 [id number] Diagnos is: ICD-10- CM E21.3 Hyperpa rathyro idism, unspeci fied PUSHPA STORY 09/03 [facility] Encounter [id number] 09/17 [facility] [id number] 09/18 [facility] [id number] 09/18 [facility] Encounter [id number] INGRID CHAMORRO 09/18 [facility] BRIEF COMUNICAJ TECH-BSD SVC [id number] Diagnos is: ICD-10- CM E21.3 Hyperpa rathyro idism, unspeci fied PUSHPA STORY 09/18 [facility] Outpatient Encounter [id number] 09/18 [facility] OFFICE O/P EST LOW 20 MIN [id number] Diagnos is: ICD-10- CM M79.674 Pain in right toe(s) SOFY DENTON DPM 09/28 [facility] OFFICE O/P EST LOW 20 MIN [id number] Diagnos is: ICD-10- CM M79.674 Pain in right toe(s) SOFY DENTON DPM 09/28 [facility] [facility] Outpatient Encounter [id number] Krysten HANSON 09/30 [facility] Outpatient Encounter [id number] 10/02 [facility] OFFICE O/P EST LOW 20 MIN [id number] Diagnos is: ICD-10- CM M77.41 Metatar salgia, right foot TILA ESPOSITO D 10/05 [facility] Outpatient Encounter [id number] INGRID CHAMORRO 10/07 [facility] Outpatient Encounter [id number] 10/13 [facility] CANALITH REPOSITION ING PROC [id number] Diagnos is: ICD-10- CM H81.11 Benign paroxys mal vertigo , right ear CHALLET,KE LLY M 10/13 [facility] [place] [id number] Diagnos is: ICD-10- CM 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 MERHAR,VANESSA H B 10/15 [facility] CANALITH REPOSITION ING PROC [id number] Diagnos is: ICD-10- CM H81.11 Benign paroxys mal vertigo , right ear CHALLET,KE LLY M 10/16 [facility] SELF CARE MNGMENT TRAINING [id number] Diagnos is: ICD-10- CM Z72.3 Lack of physica l DOMONIQUE Garza 10/19 [facility] Social History Combined list of available smoking, tobacco, and other social history from Department of Defense and Veterans Affairs facilities. Social History Type Response Date Comment Source Tobacco smoking status [facility] VA-TOBACCO NEVER USED CIGARETTES 08/03/2024 [facility] History of tobacco use VA-TOBACCO NEVER USED OTHER TYPE 08/03/2024 [facility] History of tobacco use VA-TOBACCO FORMER USER 08/26/2023 [facility] History of tobacco use VA-TOBACCO FORMER USER 04/11/2022 [facility] History of tobacco use TOBACCO PREVIOUS USER [...] use QUIT TOBACCO >7 YEARS AGO 07/04/2012 [place] History of tobacco use TOBACCO USE MISDIAGNOSIS 02/11/2012 [place] History of tobacco use TOBACCO CURRENT USER 12/08/2011 [place] [facility] History of tobacco use LIFETIME NON-USER OF TOBACCO 11/08/2010 [place] History of tobacco use LIFETIME NON-USER OF TOBACCO 07/22/2009 [place] History of tobacco use LIFETIME NON-SMOKER/TOBACCO USER 07/18/2006 [place] History of tobacco use CURRENT SMOKER 03/25/2006 reducing use on own. [facility] History of tobacco use LIFETIME NON-TOBACCO USER 09/21/2005 [facility] History of tobacco use LIFETIME NON-TOBACCO USER 09/20/2005 [facility] History of tobacco use LIFETIME NON-SMOKER/TOBACCO USER 09/07/2005 [facility] History of tobacco use LIFETIME NON-SMOKER/TOBACCO USER 06/14/2005 [facility] History of tobacco use LIFETIME NON-SMOKER/TOBACCO USER 03/21/2005 [facility] History of tobacco use LIFETIME NON-TOBACCO USER 12/07/2004 [facility] History of tobacco use TOBACCO PREVIOUS USER 08/14/2004 [place] [facility] [facility] History of tobacco use TOBACCO NEVER USED 03/01/2000 [place] Plan of Care List of future care activities from Department of [facility] Affairs facilities. Additional future care activities may be listed in the Assessment and Plan section. Date/Time Care Activity Care Activity Detail Facili ty 10/20/2024 AMBULATORY - MEDICINE AMBULATORY [place] [facility]ICI [place] [facility] [place] [facility] 10/27/2024 AMBULATORY - SURGERY AMBULATORY - SURGERY [place] 12/01/2024 AMBULATORY - MEDICINE AMBULATORY [place] [facility]ICI [place] [facility] [place] [facility] 01/04/2025 AMBULATORY - MEDICINE AMB[facility]ORY [place] [facility]I [place] [facility] [place] [facility] 01/19/2025 AMBULATORY - MEDICINE AMBULATORY - MEDICI NE [facility] 10/06/2024 Consult Order COMMUNITY CARE-G EN SURGERY Cons Light Industrial Supervisor's Choice [facility] 10/06/2024 Consult Order COMMUNITY CARE-P HYSICAL THERAPY [employer] Supervisor's Choice [facility] 10/12/2024 Consult Order PODIATRIC SURGER Y/ULCER CONSULT IFC NEWT [employer] Supervisor's Choice [facility] 10/16/2024 Laboratory - Linen Worker ry Order CALCIUM, 24HR PANEL 24 HR URINE [facility] 11/30/2024 Laboratory - Linen Worker ry Order BASIC METABOLIC PANEL (non-fasting) BLOOD (SST-SERUM) [facility] 11/30/2024 Laboratory - Linen Worker ry Order VITAMIN D (25-OH) BLOOD (SST-SERUM) [facility] 11/30/2024 Laboratory - Linen Worker ry Order PTH INTACT BLOOD (RED-PLAIN) SERUM [facility] Advance Directives List of completed, amended, or rescinded Advance Directives on record at Department of [facility] facilities. An actual copy of the Directive is not included. Date Advance Directive Provider Source 05/16/2011 ADVANCE DIRECTIVE DISCUSSION TON SARAVIA 09/27/2005 ADVANCE DIRECTIVE SHARLENE SIDHU [facility] 09/10/2005 ADVANCE DIRECTIVE DISCUSSION FRANCE RODRIGEZ [facility] 08/14/2004 ADVANCE DIRECTIVE DISCUSSION REGULO AGUILAR
--- OUTSIDE RECORDS SUMMARY | 2024-10-20 10:10 | XMS_ITS ---
Author Name [facility] [place] Address [address] [place] [address] Care Team Providers Care Breast Surgeon Name Role Phone LORETTA HANSON Primary Care [...] Gonzalez's Name Patient's Relationship to Policy Gonzalez [facility] Aug 05, 2021 01 [id number] ELVIN WALSH PATIENT Selected Encounter This section includes the information on record at [place] for the Encounter. Date/Time Encounter Type Encounter Description Reason Provider Source Oct 16, 2024 11:30 AM CANALITH REPOSITIONING PROC PHYSICAL THERAPY ICD-10-CM H81.11 Benign paroxysmal vertigo, right ear SISSY CHAVEZ Zahra Encounter Template Text not used by [place] Assessments - Encounter Diagnoses This section includes the primary and secondary diagnoses documented for the Encounter. Date/Time Primary/Secondary Diagnosis Diagnosis Name Provider Source Oct 16, 2024 01:20 PM PRIMARY Benign paroxysmal vertigo, right ear SISSY CHAVEZ [facility] Plan of Treatment: Future Appointments (+ 6 months) and Future Tests (+/- 45 days) The Plan of Treatment section includes future care activities for the patient from all [place] treatmentfauc [facility]. This section includes future appointments and future orders which are active, pending or scheduled. Future Appointments This section includes appointments that were scheduled to occur 6 months from the date of the Encounter, up to a maximum of 20 appointments. The data comes from all [facility] facilities. Appointment Date/Time Appointment Type Appointme nt Facility Name Oct 19, 2024 04:00 PM AMBULATORY [place] [facility] [place] [facility] Oct 20, 2024 09:30 AM AM[place]ULATORY [place]ICINE [place] [facility] [place] [facility] Oct 27, 2024 02:30 PM AMBULATORY - SURGERY [place] Dec 01, 2024 03:00 PM [facility] - [facility] Jan 04, 2025 10:30 AM [facility] Jan 19, 2025 11:00 AM [facility] Active, Pending, and Scheduled Orders This section includes a listing of several types of active, pending, and scheduled orders, including clinic medications orders, diagnostic test orders, procedure orders and consult orders; where the start date of the order is 45 days before the date of the Encounter or 45 days after the date of theEncounter. The data comes from all [facility]. Test Date/Time Test Type Test Details Facility Name Oct 06, 2024 03:06 PM Consult Order COMMUNITY CARE-GEN SURGERY Cons [place]eneer Supervisor's Choice [place] [facility] Oct 06, 2024 03:09 PM Consult Order COMMUNITY CARE-PHYSICAL THERAPY Cons [place] Supervisor's Choice [place] [facility] Oct 12, 2024 06:55 AM Consult Order PODIATRIC SURGERY/ULCER CONSULT [facility] Cons Veneer Supervisor's Choice [place] [facility] [place] [facility] Oct 16, 2024 12:00 AM Laboratory - Chemi stry Order CALCIUM, 24HR PANEL 24 HR URINE SP [place] [facility] Nov 30, 2024 12:00 AM Laboratory - Chemi stry Order BASIC METABOLIC PANEL (non-fasting) BLOOD (SST-SERUM) [facility] Nov 30, 2024 12:00 AM Laboratory - Chemi stry Order VITAMIN D (25-OH) BLOOD (SST-SERUM) [facility] Nov 30, 2024 12:00 AM Laboratory - Chemi stry Order PTH INTACT BLOOD (RED-PLAIN) SERUM SP [facility] Lab Results: +/- 30 days of [...] - Unit Interpretation Reference Range Comment Sep 30, 2024 03:15 PM [facility] VITAMIN B12 Specimen Type: SERUM No comment entered. Ordering Provider: MAR HANSON Report Released Date/Time: Sep 30, 2024 02:42 PM Reporting Lab: [address] [id number] Performing Lab: [address] [id number] VITAMIN B12 332 pg/mL 200-900 Sep 30, 2024 03:15 PM [facility] MAGNESIUM Specimen Type: SERUM No comment entered. Ordering Provider: MAR HANSON Report Released Date/Time: Sep 30, 2024 02:41 PM Reporting Lab: [address] [id number] Performing Lab: [address] [address] MAGNESIUM 1.7 mg/dL 1.6-2.6 Social History: Smoking Status (Most current) and [...] Facil ity Aug 03, 2024 01:00 PM [place]-TOBACCO NEVER U SED CIGARETTES [facility] Tobacco Use History This section includes a history of the smoking, or tobacco-related health factors, that were collected on or before the date of the Encounter. The data comes from the [place] facility where the Encounter took place. Date/Time Smoking Status/Tobacco Use Comment F acility Aug 03, 2024 01:00 PM VA-TOBACCO NEVER U SED OTHER TYPE [facility] Aug 26, 2023 10:00 AM VA-TOBACCO FORMER USER [facility] Aug 26, 2023 10:00 AM [place]-TOBACCO QUIT 15 YRS OR MORE [facility] Apr 11, 2022 11:00 AM VA-TOBACCO [facility] Apr 11, 2022 11:00 AM [place]-TOBACCO QUIT 15 YRS OR MORE [facility] Advance Directives: All historical and current Section Date Range: From patient's date of to the date document was created. This section includes ALL of a patient's completed or amended [place] Advance and Rescinded Directives. The entries below indicate that a directive exists for the patient, but an actual copy is not included with this document. The data comes from all [facility]. Date Advance Directives Provider Source May 16, 2011 ADVANCE DIRECTIVE DISCUSSION TON SARAVIA Sep 27, 2005 ADVANCE DIRECTIVE SHARLENE SIDHU [facility] Sep 10, 2005 ADVANCE DIRECTIVE DISCUSSION FRANCE RODRIGEZ [facility] Aug 14, 2004 ADVANCE DIRECTIVE [...] the Encounter. The data comes from all [place] treatment facilities. Date/Time Radiology Report Provider Source Sep 23, 2024 11:21 AM FOOT 3 OR MORE VIE WS (RIGHT): ELVIN REYNA [id number] -[id number] M Exm Date: SEP 23, 2024@11:21 Req Phys: GANGA DAVID Pat Loc: [facility]ZN PACT FLOAT PA (Req'g Loc Img Loc: [facility] 1 Service: [place] [address] (Case [id number] COMPLETE) FOOT 3 OR MORE VIEWS (RIGHT) (RAD Detailed) CPT:87786 Proc Modifiers : RIGHT CPT Modifiers : RT RIGHT SIDE Reason for Study: pre-podiatric evaluation Clinical History: Report Status: Verified Date Reported: SEP 23, 2024 Date Verified: SEP 23, 2024 Instrument Installer E-Sig:/ES/KRISTYN BERKOWITZ JR Report: Study: Weight-bearing AP, lateral, and oblique views of the right foot. Comparison: None. Findings: The soft tissues appear normal with no soft tissue swelling, calcifications or radiopaque foreign body identified. The bony mineralization is normal. There is no bony fracture, dislocation or subluxation. The plantar arch is maintained. No calcaneal spurs are seen. Likely second hammertoe deformity. If the patient continues to have pain, or an occult fracture and/or injury is suspected, CT or MRI may be helpful. Impression: No acute bony abnormality, as described above. Primary Diagnostic Code: No immediate attention required Primary Interpreting Staff: KRISTYN BERKOWITZ JR, Radiologist (Instrument Installer) /KRISTYN VASQUES JR [facility] Encounter Notes: All associated encounter notes This section contains the clinical notes associated to the Encounter. Date/Time Encounter Note(s) Provider Source Oct 16, 2024 11:23 AM PHYSICAL THERAPY NOTE: LOCAL TITLE: PHYSICAL THERAPY STANDARD TITLE: PHYSICAL THERAPY NOTE DATE OF NOTE: OCT 16, 2024@11:23 ENTRY DATE: OCT 16, 2024@11:23:26 AUTHOR: SISSY CHAVEZ EXP COSIGNER: URGENCY: STATUS: COMPLETED Initial Evaluation date: 10/13/24 Progress Note Date: Treatment #: 1 Treatment time: 20' Diagnosis: BPPV R PC Provider: Hanson PT Treatment Precautions: None Patient identified by full name and date of SUBJECTIVE: It seems like vertigo is relieved, I think you fixed it. There is still a little slight vertigo w/ head turns, didn't know if it was just residual. OBJECTIVE: THERAPEUTIC EXERCISE: MINUTES: MANUAL THERAPY: MINUTES: GAIT TRAINING: MINUTES: NEUROMUSCULAR EDUCATION: MINUTES: CANALITH REPOSITIONING: MINUTES: 25 R Jeremy hallpike - neg R Renetta maneuver - neg Reviewed instructions for R self CRM MODALITIES: MINUTES: [] Contraindication screen completed prior to modality [] Skin intact pre/post SELF CARE/EDUCATION: MINUTES: Patient education was provided for all aspects of care during this clinical encounter. ASSESSMENT: R Jeremy hallpike reassessment was negative. Performed R Renetta maneuver w/o nystagmus or symptom onset. Reviewed instructions for R self CRM, instructed to perform only if vertigo/dizziness reoccurs. PLAN: No f/u appts scheduled, pt will contact clinic w/ any future questions or concerns. This treatment was primarily performed by Reinier Sanz, NICOLE, however, I, Sissy Chavez PT, DPT, was present during the course of this treatment in its entirety providing direct supervision for this student, I agree with treatment and plan of care as stated above. /roberto/ Sissy Chavez PTDPT PHYSICAL THERAPIST Signed: 10/16/2024 14:01 SISSY CHAVEZ [place] [facility]
--- OUTSIDE RECORDS SUMMARY | 2024-10-20 10:10 | XMS_ITS ---
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 Name Role Phone LORETTA HANSON Primary Care [...] [place] H Aug 05, 2021 01 [phone] [id number] ELVIN WALSH PATIENT Selected Encounter This section [...] hyperactivity disorder, predom inattentive type CARMEN FRANCES [facility] [place] [facility] Plan of Treatment: Future Appointments (+ [...] - MEDICINE [facility] [place] [facility] Jul 13, 2024 09:00 AM AMBULATORY - MEDICINE [facility] [place] [facility] Jul 23, 2024 11:30 AM AMBULATORY - MEDICINE [facility] [place] [facility] Aug 03, 2024 01:00 PM AMBULATORY - MEDICINE [facility] [place] [facility] Aug 06, 2024 02:30 PM AMBULATORY - MEDICINE [facility] [place] [facility] Aug 14, 2024 11:30 AM AMBULATORY - MEDICINE [facility] [place] [facility] Sep 02, 2024 01:00 PM AMBULATORY - SURGERY [place] [facility] Sep 02, 2024 01:00 PM AMBULATORY - MEDICINE [facility] [place] [facility] Sep 03, 2024 03:00 PM AMBULATORY - MEDICINE [facility] [place] [facility] Sep 14, 2024 10:30 AM AMBULATORY - NONE [facility] [place] [facility] Sep 28, 2024 10:30 AM AMBULATORY - MEDICINE [facility] [place] [facility] Sep 30, 2024 02:30 PM AMBULATORY - MEDICINE [facility] [place] [facility] Oct 05, 2024 03:00 PM AMBULATORY - MEDICINE [facility] [place] [facility] Oct 13, 2024 02:15 PM AMBULATORY - REHAB MEDICIN E [facility] [place] [facility] Oct 15, 2024 10:00 AM AMBULATORY - MEDICINE [facility] [place] [facility] Oct 16, 2024 11:30 AM [facility] Oct 19, 2024 04:00 PM [facility] [place] Oct 20, 2024 09:30 AM AMBULATORY - MEDICINE [facility] [place] Oct 27, 2024 02:30 PM AMBULATORY - SURGERY [facility] Dec 01, 2024 03:00 PM AMBULATORY - MEDICINE [facility] Active, Pending, and Scheduled Orders This section [...] PM Consult Order DERMATOLOG Y/NHM (OUTPT) 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 A negative test results does not exclude the possibility of infection because results may be affected by improper specimen collection, concurrent antibiotic therapy, or the number of organisms in the specimen which may be below the sensitivity of the test. Ordering Provider: MAR HANSON Report Released Date/Time: Jun 05, 2024 02:02 PM Reporting Lab: [address] [address] Performing Lab: [address] [address] GC PCR NOT DETECTED Not Detected CT PCR NOT DETECTED Not Detected Jun 05, 2024 02:23 PM [facility] MICROSCOPIC AUTOMATED, URINE Specimen Type: URINE Comment: If Glucose = >500 and Ketones are positive, please alert the Physician. Ordering Provider: MAR HANSON Report Released Date/Time: Jun 05, 2024 02:02 PM Reporting Lab: [address] [address] Performing Lab: [address] [address] UA WBC 0-5 /[HPF] 0-5 UA MUCUS FEW /[LPF] Trace UA RBC 11-20 /[HPF] H 0-3 Jun 05, 2024 02:23 PM [facility] URINALYSIS CLEAN CATCH Specimen Type: URINE Comment: If Glucose = >500 and Ketones are positive, please alert the Physician. Ordering Provider: MAR HANSON Report Released Date/Time: Jun 05, 2024 02:02 PM Reporting Lab: [address] [address] Performing Lab: [address] [address] UA COLOR Light-Yellow Yellow UA APPEARANCE Clear [...] 26, 2023 10:00 AM [place]TO[place] FORMER USER [facility] Tobacco Use History This section includes a history of the smoking, or tobacco-related health factors, that were collected on or before the date of the Encounter. The data comes from the [place] facility where the Encounter took place. Date/Time Smoking Status/Tobacco Use Comment F acility Aug 26, 2023 10:00 AM [place]TO[place] QUIT 15 YRS OR MORE [facility] Apr 11, 2022 11:00 AM [place] FORMER USER [facility] Apr 11, 2022 11:00 AM [place] QUIT 15 YRS OR MORE [facility] Advance Directives: All historical and [...] Sep 27, 2005 ADVANCE DIRECTIVE SHARLENE SIDHU [facility] Sep 10, 2005 ADVANCE DIRECTIVE DISCUSSION FRANCE RODRIGEZ [facility] Aug 14, 2004 ADVANCE DIRECTIVE [...] ABDOMEN AND PELVIS WITHOUT CONT.: ELVIN REYNA [id number] -1975 M Exm Date: JUN 05, 2024@14:27 Req Phys: LORETTA HANSON Loc: CWM/NO/PACT 7 (Req'g Loc) Img Loc: NHM/CT Service: [facility] [place] [address] (Case [id number] COMPLETE) CT ABDOMEN AND PELVIS WITHOUT CON(CT Detailed) CPT:34307 Reason for Study: lower abdominal pain Clinical History: h/o kidney stone, having worsening pain Report Status: Verified Date Reported: JUN 07, 2024 Date Verified: JUN 07, 2024 Fire Chief'S Aide E-Sig: Report: CT ABDOMEN AND PELVIS WITHOUT [...] be made. The result was communicated to Lazarusmariza Jean Baptisterita on 06/07/2024 at 6:41 PST with read-back verification. READING PHYSICIAN: Rashida Hawk MD -[phone] 06/07/2024 6:44 PST [facility] National Teleradiology Program [phone] (For Medical Practitioner Use Only) Attention Patients / Veterans: If you have questions or concerns about these test results, please contact your ordering provider or primary care team. Primary Diagnostic Code: CRITICAL ABNORMALITY Primary Interpreting Staff: RADIOLOGY,OUTSIDE SERVICE, Staff Physician / RADIOLOGY,OUTSIDE SERVICE [facility] Pathology Reports: +/- 30 days of [...] 02:23 PM LR MICROBIOLOGY REPORT: Reporting Lab: [facility] [CLIA# [id number]] [address] [place] [id number] Accession [UID]: [id number] [[id number]] Received: Jun 05, 2024@14:23 Collection sample: URINE CLEAN CATCH Collection date: Jun 05, 2024 14:23 Site/Specimen: URINE Provider: LORETTA HANSON Test(s) ordered: URINE CULTURE(MWROX).......... completed: Jun 08, 2024 09:02 * BACTERIOLOGY FINAL REPORT => Jun 08, 2024 09:02 TECH CODE: [id number] Bacteriology Remark(s): NO GROWTH IN 24 HOURS, FINAL REPORT TO FOLLOW. FINAL AEROBIC REPORT: NO GROWTH =--=--=--=--=--=--=--=--=--= --=--=--=--=--=--=--=--=--=- -=--=--=--=--=--=--=-- Performing Laboratory: Bacteriology Report Performed By: [facility] [CLIA# [id number]] [address] [place] [address] CYRUS ESPINOZA [facility] Jun 02, 2024 11:29 AM LR SURGICAL PATHOLOGY REPORT: LOCAL TITLE: LR SURGICAL PATHOLOGY REPORT STANDARD TITLE: PATHOLOGY DIAGNOSTIC STUDY REPORT DATE OF NOTE: JUN 02, 2024@11:29:44 ENTRY DATE: JUN 02, 2024@:29:44 AUTHOR: MAGDALENA STOCKTON MD EXP COSIGNER: URGENCY: STATUS: COMPLETED $APHDR Reporting Lab: [facility] [CLIA# [id number]] [address] [place] [phone] - - - - - - - [...] - - PATHOLOGY REPORT Accession No. [facility] 533 - - - - - - [...] - - - - BRIEF CLINICAL HISTORY: 533 Clinicl Hx: 48 year old man [...] - - PATHOLOGY REPORT Accession No. [facility] 24 533 - - - - - - - - - - - - - - - - - - - - - - - - - - - - - - - - - - - - - - - - Gross description: [facility] 48 9102;;1;Melinda REYNA This is a [facility] case number [facility] 24 533. Received in formalin [...] margin. The specimen is inked as follows: 3 o'clock peripheral margin blue, 3-6-9 o'clock peripheral margin orange, deep black. The specimen is entirely submitted as follows: 1: 9:00 tip 2: 3:00 tip 3-4: Body JK 06/01/2024 Skin, midline lower back: Hemangioma, completely excised. CPT code 95604 /roberto/ MAGDALENA STOCKTON MD Board Certified Dermatopathologist Signed Jun 02, 2024@11:29 Performing Laboratory: Surgical Pathology Report Performed By: [facility] [CLIA# [id number]] [address] [place] [address] $FTR - - - - - - [...] - ELVIN REYNA JR STANDARD FORM 515 ID:[id number] SEX:M :1975 AGE: 48 LOC:CWM/NO/GS PCP: Loretta Hanson NP /roberto/ MAGDALENA STCOKTON MD Board Certified Dermatopathologist Signed: 06/02/2024 11:29 MAGDALENA STOCKTON MD [facility] [place] Encounter Notes: All associated encounter notes This [...] Resources Only: E911 (Emergency Call Relay Center): [phone] [facility] Line - 988 then press #1. C[facility] Suicide Coordinator [phone], Ext. [phone]; Back-up Ext. [phone] [place] Police, [place] [phone] Introduction: Visit is being conducted by [place] [employer] [facility]. identified with 2 identifiers: [X] Full Name [X] Date of [ ] VA ID Card Emergency Plan: confirmed and/or provided the following information in case of emergency or technology failure. PATIENT PHONE - PHONE NUMBER [CELLULAR] - Is patient phone number correct, if not, enter below: 's phone number: ELVIN Pennington MARIBELL [address] [place], [place], [address] [place]'s present location and address for appointment: at home 's emergency contact name and phone number: domestic partner, Anny Pcikard [phone] reported that location is private and safe: Yes Informed Consent: [place] informed of the risks and benefits of Telehealth video care. has the right to refuse video services. If refuses video visit, a [id number] visit will be scheduled. [place] verbalized consent for this video visit: Yes [place] provided consent for any other persons present [...] ID: 48yo WHITE MALE -=-=-=-=-=-=-=-=-=-=-=-=-=-=- =-=-=-=-=-==-=-=-=-=-=-=-=-=- =-=-=-=-=-=Subjective- [place] was last seen on [id number] with the [...] 7. GERD - Gastro-Esophageal Reflux Disease ([facility] [id number]) 8. Anxiety ([facility] [id number]) 9. Hyperlipidemia ([facility] [id number]) 10. Fatty liver 11. Family history of [...] escitalopram (2023) - hydroxyzine (2004) - paroxetine (4941-3936) - risperidone () - sertraline (8073-9265) - trazodone (9703-6049) [X] Per Patient: - SI w/ bupropion [...] and drug-gene interactions can be found in [employer] under the following - PROC DT date: 11/11/2023 TEST RESULTS (15-GENE PANEL): Gene: ABCG2 Result: Decreased function Gene: CYP2B6 Result: Intermediate metabolizer Gene: CYP2C Result: Low sensitivity Gene: [id number] Result: Rapid metabolizer Gene: CYP2C9 Result: Intermediate metabolizer Gene: CYP2D6 Result: Normal metabolizer Gene: CY Result: Poor metabolizer Gene: CYP4F2 Result: Reduced activity Gene: DPYD Result: Normal metabolizer Gene: G6PD Result: Normal function Gene: NUDT15 Result: Normal metabolizer Gene: CZHG7B9 Result: Normal function Gene: TPMT Result: Normal metabolizer Gene: UGT1A1 Result: Intermediate metabolizer Gene: VKORC1 Result: Intermediate warfarin sensitivity HLA-B *57:01 screen Negative Low Risk There may be a delay in the availability of the PGx results report in [employer]. If immediate access to the patient report is needed, please navigate to [employer] ([employer]) - [facility] Summaries & Documents Widget to find Roly's report under PharmGx Panel. Estimated CrCl (based on IBW): ~73mL/min -=-=-=-=-=-=-=-=-=-=-=-=-=-=- =-=-=-=-=-==-=-=-=-=-=-=-=-=- =-=-=-=-=-=-=-=-=-=-=- ASSESSMENT The following review of all active psychotropic and MECHANICAL SERVICE REPRESENTATIVE-active agents is to ensure pharmacotherapy is [...] Other: RTC Interval: tbd Next Apt: tbd [place] was provided radio news writer's contact information and instructed to contact radio news writer as needed for any changes to scheduling or concerns otherwise. [place] is aware of actions to take if they feel unsafe, including calling the [place]'s Crisis Line (#211); calling 911; or going to the nearest urgent care or emergency room. The is also aware of how to contact the clinic should the require additional services prior to the next appointment. Time spent on chart review, session, and documentation: 30minutes /es/ Hossein Torres. Laura Frances Clinical Pharmacist Practitioner Signed: 06/24/2024 12:32 [facility] [place] [facility]
--- OUTSIDE RECORDS SUMMARY | 2024-10-20 10:10 | XMS_ITS ---
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 Date/Time Encounter Type Encounter Description Reason Provider Source Jan 07, 2024 09:30 AM MANUAL THERAPY 1/> [facility] ICD-10-CM M79.601 Pain in right arm [facility] Encounter Template Text not used by [place] Assessments - Encounter Diagnoses This section includes the primary and secondary diagnoses documented for the Encounter. Date/Time Primary/Secondary Diagnosis Diagnosis Name Provider Source Jan 07, 2024 03:12 PM PRIMARY Pain in right arm MACHON,VENITA E [facility] [place] [facility] Plan of Treatment: Future Appointments (+ 6 months) and Future Tests (+/- 45 days) The Plan of Treatment section includes future care activities for the patient from all [place] [facility]. This section includes future appointments [...] AMBULATORY - PSYCHIATRY [facility] [place] [facility] Jan 21, 2024 10:30 AM AMBULATORY - MEDICINE [facility] [place] [facility] Jan 21, 2024 11:30 AM AMBULATORY - MEDICINE [facility] [place] [facility] Apr 24, 2024 02:00 PM AMBULATORY - MEDICINE [facility] [place] [facility] Apr 29, 2024 01:00 PM AMBULATORY - MEDICINE [facility] [place] [facility] Apr 29, 2024 02:00 PM AMBULATORY - MEDICINE [facility] [place] [facility] May 13, 2024 09:30 AM AMBULATORY - MEDICINE [facility] [place] [facility] May 21, 2024 11:00 AM AMBULATORY - MEDICINE [facility] [place] [facility] May 22, 2024 01:30 PM AMBULATORY - MEDICINE [facility] [place] [facility] May 29, 2024 02:00 PM AMBULATORY - MEDICINE [facility] [place] [facility] Jun 05, 2024 10:00 AM AMBULATORY - MEDICINE [facility] [place] [facility] Jun 05, 2024 02:00 PM AMBULATORY - MEDICINE [facility] [place] [facility] Jun 05, 2024 02:45 PM AMBULATORY - NONE [facility] [place] [facility] Jun 17, 2024 08:00 AM AMBULATORY - PSYCHIATRY [facility] [place] [facility] Jun 18, 2024 08:30 AM AMBULATORY - MEDICINE [facility] [place] [facility] Jun 18, 2024 11:00 AM AMBULATORY - PSYCHIATRY [facility] [place] [facility] Jun 26, 2024 09:00 AM AMBULATORY - MEDICINE [facility] Active, Pending, and Scheduled Orders This [...] BLOOD FIT X1 SCREEN(IN-HOUSE) STOOL FECES SP [facility] Social History: Smoking Status (Most current) [...] Facil ity Aug 26, 2023 10:00 AM [place]-TOBAC[place] FORMER USER [facility] Tobacco Use History This section includes a history of the smoking, or tobacco-related health factors, that were collected on or before the date of the Encounter. The data comes from the [place] facility where the Encounter took place. Date/Time Smoking Status/Tobacco Use Comment F acility Aug 26, 2023 10:00 AM [place]-TOBAC[place] QUIT 15 YRS OR MORE [facility] Apr 11, 2022 11:00 AM [place]-TOBAC[place] FORMER USER [facility] Apr 11, 2022 11:00 AM [place]-TOBAC[place] QUIT 15 YRS OR MORE [facility] [...] 2005 ADVANCE DIRECTIVE NAHUMSHARLENE Lo AARON [facility] Sep 10, 2005 ADVANCE DIRECTIVE DISCUSSION FRANCE RODRIGEZ [facility] Aug 14, 2004 ADVANCE DIRECTIVE DISCUSSION [...] MANDIBLE LESS THAN 4 VIEWS: ELVIN REYNA [id number] -1975 M Exm Date: JAN 21, 2024@11:02 Req Phys: GANGA DAVID Loc: CWM/NO/SICK CALL PA (Req'g Loc Img Loc: [facility] 1 Service: Unknown [place] [facility] (Case [id number] COMPLETE) MANDIBLE LESS THAN 4 VIEWS (RAD Detailed) CPT:51709 Reason for Study: SWELLING AND PAIN Clinical History: R/O MASS Report Status: Verified Date Reported: JAN 21, 2024 Date Verified: JAN 21, 2024 [place] E-Sig: Report: PROCEDURE: Stat mandible 3 images [...] Recommend CT/MRI. READING PHYSICIAN: Maged Pastor M.D. -[id number] 01/21/2024 12:15 EDT [facility] National Teleradiology Program [phone] (For Medical Practitioner Use Only) Attention Patients / Veterans: If you have questions or concerns about these test results, please contact your ordering provider or primary care team. Primary Diagnostic Code: SIGNIFICANT ABNORMALITY, ATTN NEEDED Primary Interpreting Staff: RADIOLOGY,OUTSIDE SERVICE, Staff Physician / RADIOLOGY,OUTSIDE SERVICE [place] [facility] [place] [facility] Encounter Notes: All associated encounter notes [...] Signed: 01/07/2024 15:12 /roberto/ Loretta Hanson DNP, BLENDER / COOK-BC, CNL Primary Care Nurse Practitioner Cosigned: 01/07/2024 15:17 Receipt Acknowledged By: 01/07/2024 16:04 /roberto/ SYDNEY PALOMARES OCCUPATIONAL THERAPY STUDENT [facility]
--- OUTSIDE RECORDS SUMMARY | 2024-10-20 10:10 | XMS_ITS | Encounter Summary ---
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 Date/Time Encounter Type Encounter Description Reason Provider Source Oct 07, 2024 03:50 PM Outpatient Encounter PRIMARY CARE/MEDICINE ISRA MOYA [facility] Encounter Template Text not used by [place] Plan of Treatment: Future Appointments (+ 6 [...] Appointment Type Appointme nt Facility Name Oct 13, 2024 02:15 PM AMBULATORY - [facility] MEDICIN E [facility] [place] [facility] Oct 15, 2024 10:00 AM AMBULATORY - MEDICINE [facility] [place] [facility] Oct 16, 2024 11:30 AM AMBULATORY - REHAB MEDICIN E [facility] [place] [facility] Oct 19, 2024 04:00 PM AMBULATORY - REHAB MEDICIN E [facility] [place] [facility] Oct 20, 2024 09:30 AM AMBULATORY - MEDICINE [facility] [place] [facility] Oct 27, 2024 02:30 PM AMBULATORY - SURGERY [place] Dec 01, 2024 03:00 PM AMBULATORY - MEDICINE [place] [facility] [place] [facility] Jan 04, 2025 10:30 AM AMBULATORY - MEDICINE [place] [facility] [place] [facility] Jan 19, 2025 11:00 AM AMBULATORY - MEDICINE [place] [facility] [place] [facility] Active, Pending, and Scheduled Orders This section includes a listing of several types of active, pending, and scheduled orders, including clinic medications orders, diagnostic test orders, procedure orders and consult orders; where the start date of the order is 45 days before the date of the Encounter or 45 days after the date of theEncounter. The data comes from all [facility]. Test Date/Time Test Type Test Details Facility Name Oct 06, 2024 03:06 PM Consult Order COMMUNITY CARE-GEN SURGERY Cons Quality Process Lead's Choice [place] [facility] [place] [facility] Oct 06, 2024 03:09 PM Consult Order COMMUNITY CARE-PHYSICAL THERAPY Cons Quality Process Lead's Choice [place] [facility] [place] [facility] Oct 12, 2024 06:55 AM Consult Order PODIATRIC SURGERY/ULCER CONSULT [facility] Cons Quality Process Lead's Choice [facility] [place] [facility] Oct 16, 2024 12:00 AM Laboratory - Chemi stry Order CALCIUM, 24HR PANEL 24 HR URINE SP [place] [facility] [place] [facility] Lab Results: +/- 30 [...] Range Comment Sep 30, 2024 03:15 PM [facility] VITAMIN B12 Specimen Type: SERUM No comment entered. Ordering Provider: MAR HANSON Report Released Date/Time: Sep 30, 2024 02:42 PM Reporting Lab: [address] [id number] Performing Lab: [address] [address] VITAMIN B12 332 pg/mL 200-900 Sep 30, 2024 03:15 PM [facility] MAGNESIUM Specimen Type: SERUM No comment entered. Ordering Provider: MAR HANSON Report Released Date/Time: Sep 30, 2024 02:41 PM Reporting Lab: [address] [id number] Performing Lab: [address] [address] MAGNESIUM 1.7 mg/dL 1.6-2.6 Social History: Smoking [...] 01:00 PM VA-TOBACCO NEVER U SED CIGARETTES [facility] Tobacco Use History This section includes a history of the smoking, or tobacco-related health factors, that were collected on or before the date of the Encounter. The data comes from the [place] facility where the Encounter took place. Date/Time Smoking Status/Tobacco Use Comment F acility Aug 03, 2024 01:00 PM VA-TOBACCO NEVER U SED OTHER TYPE [facility] [place] [facility] Aug 26, 2023 10:00 AM VA-TOBACCO FORMER USER [place] [facility] Aug 26, 2023 10:00 AM VA-TOBACCO QUIT 15 YRS OR MORE [place] [facility] [place] [facility] Apr 11, 2022 11:00 AM VA-TOBACCO FORMER USER [place] [facility] Apr 11, 2022 11:00 AM [facility]BACCO [facility]IT [facility] Advance Directives: All historical [...] 10, 2005 ADVANCE DIRECTIVE DISCUSSION FRANCE RODRIGEZ [facility] Aug 14, 2004 ADVANCE DIRECTIVE DISCUSSION [...] 2024 11:21 AM FOOT 3 OR MORE VIEWS (RIGHT): YOUNG REYNA [id number] -[id number] M Ex Date: SEP 23, 2024@11:21 Req Phys: GANGA DAVID Loc: [id number] PACT FLOAT PA (Req'g Loc Img Loc: [facility]/BUILDING 1 Service: Unknown [place] [facility] CALISTA STAPLES [id number] (Case [id number] COMPLETE) FOOT 3 OR MORE VIEWS (RIGHT) (RAD Detailed) CPT:02859 Proc Modifiers : RIGHT CPT Modifiers : RT RIGHT SIDE Reason for Study: pre-podiatric evaluation Clinical History: Report Status: Verified Date Reported: SEP 23, 2024 Date Verified: SEP 23, 2024 [facility] E-Sig:/ES/KRISTYN BERKOWITZ JR Report: Study: Weight-bearing AP, [...] Primary Interpreting Staff: KRISTYN BERKOWITZ JR, Radiologist (Drafting Layout Man) /EAD KRISTYN BERKOWITZ JR [facility] Sep 14, 2024 10:33 AM KIDNEY AND BLADDER ULTRASOUND: YOUNG REYNA [id number] -1975 [facility] Date: SEP 14, 2024@10:33 Req Phys: LORETTA HANSON Loc: [facility] PACT 7 SCIENTIST IMMUNOLOGY (Req'g Loc) Img Loc: ULTRASOUND Service: [place] [address] (Case 41 COMPLETE) ULTRASOUND KIDNEYS (US Detailed) CPT:76762 Reason for Study: follow up (Case 42 COMPLETE) ULTRASOUND URINARY BLADDER (US Detailed) CPT:22585 Clinical History: Some ultrasound tests require a prep. recent stone left ureter, stent removed on 08/03, seeking this to be done six weeks from now. Report Status: Verified Date Reported: SEP 14, 2024 Date Verified: SEP 14, 2024 [facility] E-Sig:/ES/KRISTYN BERKOWITZ JR Report: Study: Genitourinary ultrasound. Comparison: CT scan of the abdomen and pelvis from June 05, 2024. Findings: Both kidneys are normal and symmetric in size. The right kidney has a long length of 10.6 cm. The left kidney has a long length of 11.6 cm. Both kidneys appear sonographically normal with normal cortical thickness and no evidence of hydronephrosis, solid mass or shadowing stone. Left-sided nephrolithiasis seen on the prior CT of the abdomen is not currently visualized. The urinary bladder appears sonographically normal with a prevoiding volume of 124 cc of clear urine. No bladder calculus is identified. Normal bilateral ureteral jets are present. A normal post void residual of 2 cc is identified. The prostate has a normal volume of 27 cc. No free fluid is identified in the abdomen or pelvis. Impression: No urinary tract calculi or obstructive changes identified, as described above. Primary Diagnostic Code: No immediate attention required Primary Interpreting Staff: KRISTYN BERKOWITZ JR, Radiologist (Drafting Layout Man) /KRISTYN VASQUES JR [facility] Encounter Notes: All associated encounter notes This section contains the clinical notes associated to the Encounter. Date/Time Encounter Note(s) Provider Source Oct 09, 2024 09:25 AM PRIMARY CARE SECURE MESSAGING: [facility] TITLE: PRIMARY CARE SECURE MESSAGING STANDARD TITLE: PRIMARY CARE SECURE MESSAGING DATE OF NOTE: OCT 09, 2024@09:25 ENTRY DATE: OCT 09, 2024@09:25:24 AUTHOR: INGRID MOYA COSIGNER: URGENCY: STATUS: COMPLETED ------Original Message ------- Sent: 10/08/2024 04:08 PM ET From: YOUNG REYNA To: Krysten HANSON_PRIMARY CARE_[facility] Subject: General:Request for podiatry consult to [facility] Thank you for talking with Dr. Hanson. Yes, I would like a consultation entered for [facility] Podiatry. For other referrals, I have received calls for the [facility] PT consult and the [facility] general surgery consult. Thank you. Is the one for [facility] to treat my TMJ in the pipeline, or is that also a no go since [facility] PT exists? Have a good day. ------Original Message ------- Sent: 10/09/2024 09:25 AM ET From: INGRID MOYA To: YOUNG REYNA Subject: General:Request for podiatry consult to [facility] laurie Staples Good giuseppe Reyna, I will alert Dr. Hanson to your request for Podiatry consultation with [facility]. Also your consultation for Physical Therapy for TMJ with [facility] is still being processed. Respectfully, Ingrid Moya RN /es/ INGRID MOYA Primary Care RN Signed: 10/09/2024 09:25 INGRID MOYA [place] [facility] [place] [facility] Oct 09, 2024 09:18 AM ADDENDUM: LOCAL TITLE: Addendum STANDARD TITLE: ADDENDUM DATE OF NOTE: OCT 09, 2024@09:18:55 ENTRY DATE: OCT 09, 2024@09:18:56 AUTHOR: INGRID MOYA EXP COSIGNER: URGENCY: STATUS: COMPLETED Received SM from [facility], he is interested in Cons to [facility] Podiatry for 2nd opinion. /roberto/ INGRID MOYA Primary Care RN Signed: 10/09/2024 09:23 Receipt Acknowledged By: 10/12/2024 06:55 /roberto/ Loretta Hanson [facility] Primary Care Nurse Practitioner ====== --- Original Document --- 10/07/24 PRIMARY CARE SECURE MESSAGING: ------Original Message ------- Sent: 10/07/2024 03:36 PM ET From: YOUNG REYNA To: Krysten HANSON_PRIMARY CARE_[facility] Subject: General:Request for podiatry consult to [facility] laurie Mari, I need a referral/consult to see a principal web developer in the community care network. I need a second opinion on why I am experiencing pain in my right foot's great toe. It is rather uncomfortable but all I keep getting from the podiatrists at [facility] is they can't see anything wrong (no sign of an infection) so I should just wait to see if the problem clears up. The other day when I was there I was asked to wait three to four months. The original ingrown nail narrowing procedure was done on June 26, 2024 and by mid-late July I was experiencing pain in that toe. I returned to the podiatry clinic in early August to no avail, being told to give it more time. Here we are two months later and no relief, no improvement. I am confused as to why I should just keep waiting for the problem to fix itself. For context, I had the same procedure done on my other foot's great toe many years ago outside the [place] and had no issues or complications afterward- it healed rather quickly. Something obviously went wrong this time, this toe is not healing. I showed it to Dr. Hanson last week, and he noticed it was quite red and irritated. He gave me some antibiotic ointment as a matter of course, but I think something else is wrong - the nail looks and feels damaged, so perhaps it's irritating the skin, or something else is amiss. I'd like another principal web developer to evaluate the toe. Thank you for your help in arranging this consult. -Young ------Original Message ------- Sent: 10/07/2024 03:50 PM ET From: INGRID MOYA To: YOUNG REYNA Subject: General:Request for podiatry consult to [facility] Good afternoon Young Reyna, I discussed your concerns with Dr. Hanson he is able to order a podiatry consultation for [facility] for the second opinion if you would like. We are unable to order a community care consult for this as the [place] is providing podiatry services through [facility] Podiatry. Please let me know if you would like a consultation entered for [facility] Podiatry. Respectfully, Ingrid Moya RN /es/ INGRID MOYA Primary Care RN Signed: 10/07/2024 15:50 INGRID MOYA [place] [facility] [place] [facility] Oct 07, 2024 03:50 PM PRIMARY CARE SECURE MESSAGING: LOCAL TITLE: PRIMARY CARE SECURE MESSAGING STANDARD TITLE: PRIMARY CARE SECURE MESSAGING DATE OF NOTE: OCT 07, 2024@15:50 ENTRY DATE: OCT 07, 2024@15:50:17 AUTHOR: INGRID MOYA EXP COSIGNER: URGENCY: STATUS: COMPLETED PRIMARY CARE SECURE MESSAGING Has ADDENDA ------Original Message ------- Sent: 10/07/2024 03:36 PM ET From: YOUNG REYNA To: Krysten HANSON_PRIMARY CARE_[facility] Subject: General:[facility], I need a referral/consult to see a principal web developer in the community care network. I need a second opinion on why I am experiencing pain in my right foot's great toe. It is rather uncomfortable but all I keep getting from the podiatrists at [facility] is they can't see anything wrong (no sign of an infection) so I should just wait to see if the problem clears up. The other day when I was there I was asked to wait three to four months. The original ingrown nail narrowing procedure was done on June 26, 2024 and by mid-late July I was experiencing pain in that toe. I returned to the podiatry clinic in early August to no avail, being told to give it more time. Here we are two months later and no relief, no improvement. I am confused as to why I should just keep waiting for the problem to fix itself. For context, I had the same procedure done on my other foot's great toe many years ago outside the [place] and had no issues or complications afterward- it healed rather quickly. Something obviously went wrong this time, this toe is not healing. I showed it to Dr. Hanson last week, and he noticed it was quite red and irritated. He gave me some antibiotic ointment as a matter of course, but I think something else is wrong - the nail looks and feels damaged, so perhaps it's irritating the skin, or something else is amiss. I'd like another principal web developer to evaluate the toe. Thank you for your help in arranging this consult. -Young ------Original Message ------- Sent: 10/07/2024 03:50 PM ET From: INGRID MOYA To: YOUNG REYNA Subject: General:Request for podiatry consult to [facility] afternoon Young Reyna, I discussed your concerns with Dr. Hanson he is able to order a podiatry consultation for [facility] for the second opinion if you would like. We are unable to order a community care consult for this as the [place] is providing podiatry services through [facility] Podiatry. Please let me know if you would like a consultation entered for [facility] Podiatry. Respectfully, Ingrid Moya RN /roberto/ INGRID MOYA Primary Care RN Signed: 10/07/2024 15:50 10/09/2024 ADDENDUM STATUS: COMPLETED Received SM from [facility], he is interested in Cons to [facility] Podiatry for 2nd opinion. /roberto/ INGRID MOYA Primary Care RN Signed: 10/09/2024 09:23 Receipt Acknowledged By: * AWAITING SIGNATURE * LORETTA HANSON MELISSA A [place] [facility]
--- OUTSIDE RECORDS SUMMARY | 2024-10-20 10:10 | XMS_ITS | Encounter Summary ---
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 Date/Time Encounter Type Encounter Description Reason Provider Source December 17, 2023 03:00 PM THERAPEUTIC EXERCISES OCCUPATIONAL THERAPY ICD-10-CM M79.601 Pain in right arm VENITA TSANG [facility] Encounter Template Text not used by [place] Assessments - Encounter Diagnoses This section includes the primary and secondary diagnoses documented for the Encounter. Date/Time Primary/Secondary Diagnosis Diagnosis Name Provider Source December 17, 2023 04:14 PM PRIMARY Pain in right arm [facility] [place] [facility] Plan of Treatment: Future Appointments (+ 6 months) and Future Tests (+/- 45 days) The Plan of Treatment section includes future care activities for the patient from all [place] [facility]. This section includes future appointments and future orders which are active, pending or scheduled. Future Appointments This section includes appointments that were scheduled to occur 6 months from the date of the Encounter, up to a maximum of 20 appointments. The data comes from all [place] treatment facilities. Appointment Date/Time Appointment Type Appointme nt Facility Name December 24, 2023 03:00 PM AMBULATORY - REHAB MEDICIN E [facility] [place] [facility] January 01, 2024 11:00 AM AMBULATORY - MEDICINE [facility] [place] [facility] Jan 07, 2024 09:30 AM AMBULATORY - REHAB MEDICIN E [facility] [place] [facility] Jan 08, 2024 09:00 AM AMBULATORY - PSYCHIATRY [facility] [place] [facility] Jan 21, 2024 10:30 AM AMBULATORY - MEDICINE [facility] [place] [facility] Jan 21, 2024 11:30 AM AMBULATORY - MEDICINE [facility] [place] [facility] Apr 24, 2024 02:00 PM AMBULATORY - MEDICINE [facility] [place] [facility] Apr 29, 2024 01:00 PM AMBULATORY - MEDICINE [facility] [place] [facility] Apr 29, 2024 02:00 PM AMBULATORY - MEDICINE [facility] [place] [facility] May 13, 2024 09:30 AM AMBULATORY - MEDICINE [facility] [place] [facility] May 21, 2024 11:00 AM AMBULATORY - MEDICINE [facility] [place] [facility] May 22, 2024 01:30 PM AMBULATORY - MEDICINE [facility] [place] [facility] May 29, 2024 02:00 PM AMBULATORY - MEDICINE [facility] [place] [facility] Jun 05, 2024 10:00 AM AMBULATORY - MEDICINE [facility] [place] [facility] Jun 05, 2024 02:00 PM AMBULATORY - MEDICINE [facility] [place] [facility] Jun 05, 2024 02:45 PM AMBULATORY - NONE [facility] [place] [facility] Jun 17, 2024 08:00 AM [facility] Jun 18, 2024 08:30 AM AMBULATORY - MEDICINE [facility] Jun 18, 2024 11:00 AM AMBULATORY - PSYCHIATRY [facility] Active, Pending, and Scheduled Orders This section includes a listing of several types of active, pending, and scheduled orders, including clinic medications orders, diagnostic test orders, procedure orders and consult orders; where the start date of the order is 45 days before the date of the Encounter or 45 days after the date of theEncounter. The data comes from all [place] treatment facilities. Test Date/Time Test Type Test Details Facility Name Jan 21, 2024 12:00 AM Laboratory - Chemi stry Order OCCULT BLOOD FIT X1 SCREEN(IN-HOUSE) STOOL FECES SP [facility] Social History: Smoking Status (Most [...] 26, 2023 10:00 AM VA-TOBACCO FORMER USER [facility] Tobacco Use History This section includes a history of the smoking, or tobacco-related health factors, that were collected on or before the date of the Encounter. The data comes from the [place] facility where the Encounter took place. Date/Time Smoking Status/Tobacco Use Comment F acility Aug 26, 2023 10:00 AM [place]-TOBACCO QUIT 15 YRS OR MORE [facility] Apr 11, 2022 11:00 AM [place]-TOBACCO FORMER USER [facility] Apr 11, 2022 11:00 AM [place]-TOBACCO QUIT [facility] YRS OR MORE [facility] [...] 2005 ADVANCE DIRECTIVE SHARLENE SIDHU [facility] Sep 10, 2005 ADVANCE DIRECTIVE DISCUSSION [facility]RANCE [facility] Aug 14, 2004 ADVANCE DIRECTIVE [...] walk-outs w/ green band, 2x10 Access Code: [email or web address] URL: [email or web address] Date: 12/17/2023 Prepared by: [place] [facility] Exercises - Shoulder Flexion Wall Slide with [...] OCCUPATIONAL THERAPY STUDENT VENITA TSANG [facility]
--- OUTSIDE RECORDS SUMMARY | 2024-10-20 10:10 | XMS_ITS ---
Author Name [facility] [facility] [place] Address [address] [place] [address] Care Team Providers Care Gaming Director Name Role Phone LORETTA HANSON Primary [...] Gonzalez's Name Patient's Relationship to Policy Gonzalez [facility] Aug 05, 2021 01 [id number] ELVIN WALSH PATIENT Selected Encounter This section includes the information on record at [place] for the Encounter. Date/Time Encounter Type Encounter Description Reason Provider Source Oct 13, 2024 02:15 PM CANALITH REPOSITIONING PROC PHYSICAL THERAPY ICD-10-CM H81.11 Benign paroxysmal vertigo, right ear SISSY CHAVEZ Zahra Encounter Template Text not used by [place] Assessments - Encounter Diagnoses This section includes the primary and secondary diagnoses documented for the Encounter. Date/Time Primary/Secondary Diagnosis Diagnosis Name Provider Source Oct 13, 2024 04:01 PM PRIMARY Benign paroxysmal vertigo, right ear [facility] Plan of Treatment: Future Appointments (+ 6 months) and Future Tests (+/- 45 days) The Plan of Treatment section includes future care activities for the patient from all [place] [facility]. This section includes future appointments and future orders which are active, pending or scheduled. Future Appointments This section includes appointments that were scheduled to occur 6 months from the date of the Encounter, up to a maximum of 20 appointments. The data comes from all [facility] facilities. Appointment Date/Time Appointment Type Appointme nt Facility Name Oct 15, 2024 10:00 AM AMBULATORY - MEDICINE [place] [facility] [place] [facility] Oct 16, 2024 11:30 AM AMBULATORY - REHAB MEDICIN E [place] [facility] [place] [facility] Oct 19, 2024 04:00 PM AMBULATORY - REHAB MEDICIN E [place] [facility] [place] [facility] Oct 20, 2024 09:30 AM AMBULATORY - MEDICINE [place] [facility] [place] [facility] Oct 27, 2024 02:30 PM AMBULATORY - SURGERY [place] Dec 01, 2024 03:00 PM AMBULATORY - MEDICINE [place] [facility] [place] [facility] Jan 04, 2025 10:30 AM AMBULATORY - MEDICINE [place] [facility] [place] [facility] Jan 19, 2025 11:00 AM AMBULATORY - MEDICINE [facility] [place] [facility] Active, Pending, and Scheduled Orders This section includes a listing of several types of active, pending, and scheduled orders, including clinic medications orders, diagnostic test orders, procedure orders and consult orders; where the start date of the order is 45 days before the date of the Encounter or 45 days after the date of theEncounter. The data comes from all [facility]. Test Date/Time Test Type Test Details Facility Name Oct 06, 2024 03:06 PM Consult Order COMMUNITY CARE-GEN SURGERY Cons Vehicle Assembler's Choice [place] [facility] [place] [facility] Oct 06, 2024 03:09 PM Consult Order COMMUNITY CARE-PHYSICAL THERAPY Cons [employer] Choice [place] [facility] [place] [facility] Oct 12, 2024 06:55 AM Consult Order [facility] [place] [facility] Oct 16, 2024 12:00 AM Laboratory - Chemi abramy Order CALCIUM, 24HR PANEL 24 HR URINE SP [facility] Lab Results: +/- 30 days of [...] Range Comment Sep 30, 2024 03:15 PM [facility] VITAMIN B12 Specimen Type: SERUM No comment entered. Ordering Provider: MAR HANSON Report Released Date/Time: Sep 30, 2024 02:42 PM Reporting Lab: [address] [address] Performing Lab: [address] [address] VITAMIN B12 332 pg/mL 200-900 Sep 30, 2024 03:15 PM [facility] MAGNESIUM Specimen Type: SERUM No comment entered. Ordering Provider: MAR HANSON Report Released Date/Time: Sep 30, 2024 02:41 PM Reporting Lab: [address] [address] Performing Lab: [address] [address] MAGNESIUM 1.7 mg/dL 1.6-2.6 Social History: Smoking [...] PM VA-TOBACCO NEVER U SED OTHER TYPE [facility] Tobacco Use History This section includes a history of the smoking, or tobacco-related health factors, that were collected on or before the date of the Encounter. The data comes from the [place] facility where the Encounter took place. Date/Time Smoking Status/Tobacco Use Comment F acility Aug 03, 2024 01:00 PM VA-TOBACCO NEVER U SED OTHER TYPE [place] [facility] [place] [facility] Aug 26, 2023 10:00 AM VA-TOBACCO FORMER USER IN [facility] [place] [facility] Aug 26, 2023 10:00 AM VA-TOBACCO QUIT 15 YRS OR MORE IN [facility] [place] [facility] Apr 11, 2022 11:00 AM VA-TOBACCO FORMER USER IN [facility] [place] [facility] Apr 11, 2022 11:00 AM IN-TOBACCO QUIT 15 YRS OR MORE [facility] Advance Directives: All historical and current Section Date Range: From patient's date of to the date document was created. This section includes ALL of a patient's completed or amended [place] Advance and Rescinded Directives. The entries below indicate that a directive exists for the patient, but an actual copy is not included with this document. The data comes from all [facility]. Date Advance Directives Provider Source May 16, 2011 ADVANCE DIRECTIVE DISCUSSION TON SARAVIA Sep 27, 2005 ADVANCE DIRECTIVE SHARLENE SIDHU [facility] Sep 10, 2005 ADVANCE DIRECTIVE DISCUSSION FRANCE RODRIGEZ [facility] Aug 14, 2004 ADVANCE DIRECTIVE DISCUSSION [...] AM FOOT 3 OR MORE VIEWS (RIGHT): ELVIN REYNA [id number] -[id number] M Exm Date: SEP 23, 2024@11:21 Req Phys: GANGA DAVID Pat Loc: [facility] PACT FLOAT PA (Req'g Loc Img Loc: [facility]/BUILDING 1 Service: Unknown [place] (Case [id number] COMPLETE) FOOT 3 OR MORE VIEWS (RIGHT) (RAD Detailed) CPT:93543 Proc Modifiers : RIGHT CPT Modifiers : RT RIGHT SIDE Reason for Study: pre-podiatric evaluation Clinical History: Report Status: Verified Date Reported: SEP 23, 2024 Date Verified: SEP 23, 2024 Biometrics Experimentalist E-Sig:/ES/KRISTYN BERKOWITZ JR Report: Study: Weight-bearing AP, [...] Primary Interpreting Staff: KRISTYN BERKOWITZ JR, Radiologist (Biometrics Experimentalist) /KRISTYN VASQUES JR [facility] Sep 14, 2024 10:33 AM KIDNEY AND BLADDER ULTRASOUND: ELVIN REYNA [id number] -[id number] M Ex Date: SEP 14, 2024@10:33 Req Phys: LORETTA HANSON Loc: [facility] PACT 7 ENROLLMENT SPECIALIST (Req'g Loc) Img Loc: ULTRASOUND Service: [place] [address] (Case [id number] COMPLETE) ULTRASOUND KIDNEYS (US Detailed) CPT:20255 Reason for Study: follow up (Case 42 COMPLETE) ULTRASOUND URINARY BLADDER (US Detailed) CPT:88791 Clinical History: Some ultrasound tests require a prep. recent stone left ureter, stent removed on 08/03, seeking this to be done six weeks from now. Report Status: Verified Date Reported: SEP 14, 2024 Date Verified: SEP 14, 2024 Biometrics Experimentalist E-Sig:/ES/KRISTYN BERKOWITZ JR Report: Study: Genitourinary ultrasound. [...] Primary Interpreting Staff: KRISTYN BERKOWITZ JR, Radiologist (Biometrics Experimentalist) /KRISTYN VASQUES JR [facility] Encounter Notes: All associated encounter notes This section contains the clinical notes associated to the Encounter. Date/Time Encounter Note(s) Provider Source Oct 13, 2024 02:24 PM PHYSICAL THERAPY C ONSULT: LOCAL TITLE: PHYSICAL THERAPY CONSULT STANDARD TITLE: PHYSICAL THERAPY CONSULT DATE OF NOTE: OCT 13, 2024@14:24 ENTRY DATE: OCT 13, 2024@14:24:17 AUTHOR: SISSY CHAVEZ EXP COSIGNER: URGENCY: STATUS: COMPLETED Initial Evaluation date: 10/13/24 Progress Note Date: Treatment #: 0 Treatment time: 45' Diagnosis: BPPV R PC Provider: Giancarlo PT Treatment Precautions: None Patient identified by full name and date of S: Pt is present for evaluation of dizziness. Began a few weeks ago. Getting up or laying down, it came on in the morning. Had kidney stones in july. Had TMJ symptoms mid August and then had vertigo symptoms start at the end of August. Had true spinning Tipping his head back in the shower is when he first noticed it. Looking under car Symptom Nature: spinning Symptom Duration: second Frequency: daily Positioning Sx: lay down from sitting Y sit up from laying Y roll rt. or lt. in bed Y stand up from sitting N turn head rt. or lt. N bend over N straighten from bending N look up or down Y up Diplopia(-) Dysarthria (-) Dyphonia(-) Dysphagia(-) Dysmetria(-) Drop Attacks(-) Pt. Goal: to have less dizziness Active problems - Computerized Problem List is the source for the followin. Kidney stone 2. Gallbladder polyp 3. Pain in right arm 4. 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 Sleep apnea 7. Overweight 8. GERD - Gastro-Esophageal Reflux Disease ([facility] [id number]) 9. Anxiety ([facility] [id number]) 10. Hyperlipidemia ([facility] [id number]) 11. Fatty liver 12. Family history of diabetes mellitus Scans (MRI/CT): None Motion Intolerance: no Other Symptoms: Oscillopsia N Falls N Imbalance N Exertion induced N Extremity numbness or weakness N LOC N Visual Sx N PRECAUTIONS: No head CT or MRI Auditory Symptoms: tinnitus: N aural fullness: N perceived hearing loss: N Ear Surgery: N Middle Ear Dx: N Predisposing Factors: head injury: N neck injury: N ototoxic drugs: N toxic chemicals: N flu / virus: N migraine: N eye disease: N DM : N hypertension: N peripheral vascular: N Heart Disease: N neuromuscular: N orthopaedic: N barotrauma: N Family History of Vertigo / Imbalance:n 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 N head thrust- NT this hali Testing w/ vision blocked: Nystagmus: spontaneous Neg gaze evoked Neg Headshaking Induced Nystagmus: WNL Tragal Compression: Neg Closed nasal passages: Neg Valsalva: Neg Positional Testing: Jeremy - Hallpike: R Upbeat R torsional nystagmus w/ vertigo L WNL Roll Test: NT Postural Control: NT Treatment: Discussion of findings and POC Patient education was provided for all aspects of care during this clinical encounter. CANALITH REPOSITIONING: MINUTES CRM x 2 for R PC issued written instructions for R self CRM GAIT TRAINING: MINUTES: NEUROMUSCULAR EDUCATION: MINUTES: SELF CARE/EDUCATION: MINUTES: IMPRESSION: Pt presents w/ R PC BPPV this date. Treated w/ Renetta x 2. Tolerated w/o dizziness afterward, amb I'ly. STG's 4 wks [x ] Pt will be tested further for BPPV and treated accordingly. [ ] Pt will ambulate w/ horizontal head movements w/o gait deviation, in order to walk and look at signs. [x ] No c/o vertigo for 5 days w/ ADL's [x ] Negative positional testing PLAN: Pt to be seen 1- 4 visits POC to include: [ x]canalith repositioning maneuver [ ]adaptation [ ]habituation [ ] balance -standing and dynamic balance activities EC, head turning [ ]LION Management [ ] cervical treatment [ ]VMS videos [x ]pt education [x ]HEP /es/ Sissy Chavez PT,DPT PHYSICAL THERAPIST Signed: 10/13/2024 16:01 SISSY CHAVEZ [facility] [place] [facility]
--- OUTSIDE RECORDS SUMMARY | 2024-10-20 10:10 | XMS_ITS | Encounter Summary ---
Author Name [facility] [place] Address [address] [place] [address] Care Team Providers Care Scientific Recruiter Name Role Phone LORETTA HANSON Primary Care [...] [place] [facility] Aug 05, 2021 01 [id number] [id number] ELVIN WALSH PATIENT Selected Encounter This section [...] of spectacles and contact lenses EVA LYNNE [place] [facility] [place] [facility] Plan of Treatment: Future Appointments (+ 6 months) and Future Tests (+/- 45 days) The Plan of Treatment section includes future care activities for the patient from all [place] [facility] This section includes future appointments and future [...] MEDICINE [facility] [place] [facility] Nov 26, 2023 10:30 AM AMBULATORY - MEDICINE [facility] [place] [facility] Nov 26, 2023 10:35 AM AMBULATORY - MEDICINE [facility] [place] [facility] Dec 03, 2023 01:30 PM AMBULATORY - REHAB MEDICIN E [facility] [place] [facility] December 05, 2023 08:00 AM AMBULATORY - MEDICINE [place] [facility] [place] [facility] December 10, 2023 03:00 PM AMBULATORY - REHAB MEDICIN E [facility] [place] [facility] December 17, 2023 03:00 PM AMBULATORY - REHAB MEDICIN E [facility] [place] [facility] December 24, 2023 03:00 PM AMBULATORY - REHAB MEDICIN E [facility] [place] [facility] January 01, 2024 11:00 AM AMBULATORY - MEDICINE [place] [facility] [place] [facility] Jan 07, 2024 09:30 AM AMBULATORY - REHAB MEDICIN E [facility] [place] [facility] Jan 08, 2024 09:00 AM AMBULATORY - PSYCHIATRY [facility] [place] [facility] Jan 21, 2024 10:30 AM AMBULATORY - MEDICINE [facility] [place] [facility] Jan 21, 2024 11:30 AM AMBULATORY - MEDICINE [facility] [place] [facility] Apr 24, 2024 02:00 PM AMBULATORY - MEDICINE [facility] [place] [facility] Apr 29, 2024 01:00 PM AMBULATORY - MEDICINE [facility] Apr 29, 2024 02:00 PM AMBULATORY - MEDICINE [facility] Lab Results: +/- 30 days of [...] Range Comment Nov 11, 2023 09:54 AM [facility] [id number] PGx Specimen Type: BLOOD Comment: SPECIMEN SHIPPED ON MANIFEST [id number] Ordering Provider: MAGGIE GALVAN Report Released Date/Time: Sep 13, 2023 12:46 PM Reporting Lab: [address] [address] Performing Lab: [facility] Social History: Smoking Status (Most [...] AM [place]-TOBACCO QUIT 15 YRS OR MORE [facility] Apr 11, 2022 11:00 AM VA-TOBACCO [facility] Apr 11, 2022 11:00 AM MS-TOBACCO QUIT 15 YRS OR MORE [facility] [...] 27, 2005 ADVANCE DIRECTIVE SHARLENE SIDHU [facility] Sep 10, 2005 ADVANCE DIRECTIVE DISCUSSION FRANCE RODRIGEZ [facility] Aug 14, 2004 ADVANCE DIRECTIVE [...] OPTOMETRY TECH Signed: 11/01/2023 11:48 EVA LYNNE [facility]
--- OUTSIDE RECORDS SUMMARY | 2024-10-20 10:10 | XMS_ITS | Encounter Summary ---
Author Name [place] Address [address] [place] [address] Care Team Providers Care Chief Engineer Research Name Role Phone LORETTA HANSON Primary Care [...] [place] Aug 05, 2021 01 [id number] ELVIN WALSH PATIENT Selected Encounter This section includes the information on record at [place] for the Encounter. Date/Time Encounter Type Encounter Description Reason Provider Source Jun 05, 2024 02:00 PM OFFICE O/P EST LOW 20 MIN PRIMARY CARE/MEDICINE ICD-10-CM R10.30 Lower abdominal pain, unspecified LEROY HANSON AM Encounter Template Text not used by [place] Assessments - Encounter Diagnoses This section includes the primary and secondary diagnoses documented for the Encounter. Date/Time Primary/Secondary Diagnosis Diagnosis Name Provider Source Jun 05, 2024 02:17 PM PRIMARY Lower abdominal pain, unspecified LEROY HANSON AM [facility] [place] [facility] Plan of Treatment: Future Appointments (+ 6 months) and Future Tests (+/- 45 days) The Plan of Treatment section includes future care activities for the patient from all [place] [facility]. This section includes future appointments and [...] AMBULATORY - PSYCHIATRY [facility] [place] [facility] Jun 18, 2024 08:30 AM AMBULATORY - MEDICINE [facility] [place] [facility] Jun 18, 2024 11:00 AM AMBULATORY - PSYCHIATRY [facility] [place] [facility] Jun 26, 2024 09:00 AM AMBULATORY - MEDICINE [facility] [place] [facility] Jul 13, 2024 09:00 AM AMBULATORY - MEDICINE [facility] [place] [facility] Jul 23, 2024 11:30 AM AMBULATORY - MEDICINE [facility] [place] [facility] Aug 03, 2024 01:00 PM AMBULATORY - MEDICINE [facility] [place] [facility] Aug 06, 2024 02:30 PM AMBULATORY - MEDICINE [facility] [place] [facility] Aug 14, 2024 11:30 AM AMBULATORY - MEDICINE [facility] [place] [facility] Sep 02, 2024 01:00 PM AMBULATORY - SURGERY [facility] Sep 02, 2024 01:00 PM AMBULATORY - MEDICINE [facility] [place] [facility] Sep 03, 2024 03:00 PM AMBULATORY - MEDICINE [facility] [place] [facility] Sep 14, 2024 10:30 AM AMBULATORY - NONE [facility] [place] [facility] Sep 28, 2024 10:30 AM AMBULATORY - MEDICINE [facility] [place] [facility] Sep 30, 2024 02:30 PM AMBULATORY - MEDICINE [facility] [place] [facility] Oct 05, 2024 03:00 PM AMBULATORY - MEDICINE [facility] [place] [facility] Oct 13, 2024 02:15 PM [facility] Oct 15, 2024 10:00 AM [facility] Oct 16, 2024 11:30 AM [facility] Oct 19, 2024 04:00 PM AMBULATORY - REHAB MEDICIN E [facility] Active, Pending, and Scheduled Orders This section [...] PM Consult Order DERMATOLOG Y/NHM (OUTPT) Cons Annual Campaign Manager's Choice [facility] Jun 18, [...] Type: URINE Comment: Test performed on the [employer] Genexpert. A negative test results does not exclude the possibility of infection because results may be affected by improper specimen collection, concurrent antibiotic therapy, or the number of organisms in the specimen which may be below the sensitivity of the test. Ordering Provider: MAR HANSON Report Released Date/Time: Jun 05, 2024 02:02 PM Reporting Lab: [address] [address] Performing Lab: [address] [address] GC PCR NOT DETECTED Not Detected CT PCR NOT DETECTED Not Detected Jun 05, 2024 02:23 PM [facility] MICROSCOPIC AUTOMATED, URINE Specimen Type: URINE Comment: If Glucose = >500 and Ketones are positive, please alert the Physician. Ordering Provider: MAR HANSON Report Released Date/Time: Jun 05, 2024 02:02 PM Reporting Lab: [facility] [address] [facility] [address] Performing Lab: [address] [address] UA WBC 0-5 /[HPF] 0-5 UA MUCUS FEW /[LPF] Trace UA RBC 11-20 /[HPF] H 0-3 Jun 05, 2024 02:23 PM [facility] URINALYSIS CLEAN CATCH Specimen Type: URINE Comment: If Glucose = >500 and Ketones are positive, please alert the Physician. Ordering Provider: MAR HANSON Report Released Date/Time: Jun 05, 2024 02:02 PM Reporting Lab: [address] [address] Performing Lab: [address] [address] UA COLOR Light-Yellow Yellow UA APPEARANCE Clear [...] 131/82 20 96 2 66 244 39 [facility] Social History: Smoking Status (Most current) [...] ity Aug 26, 2023 10:00 AM [place]-TOBAC[place] FORMER USER [facility] Tobacco Use History This section includes a history of the smoking, or tobacco-related health factors, that were collected on or before the date of the Encounter. The data comes from the [place] facility where the Encounter took place. Date/Time Smoking Status/Tobacco Use Comment F acility Aug 26, 2023 10:00 AM [place]-TOBAC[place] QUIT 15 YRS OR MORE [facility] Apr 11, 2022 11:00 AM [place]-TOBAC[place] FORMER USER [facility] Apr 11, 2022 11:00 AM [place]-TOBACCO QUIT 15 YRS OR MORE [facility] [...] this document. The data comes from all [place] facilities. Date Advance Directives Provider Source May 16, 2011 ADVANCE DIRECTIVE DISCUSSION TON SARAVIA Sep 27, 2005 ADVANCE DIRECTIVE SHARLENE SIDHU [facility] Sep 10, 2005 ADVANCE DIRECTIVE DISCUSSION FRANCE RODRIGEZ [facility] Aug 14, 2004 ADVANCE DIRECTIVE DISCUSSION REGULO [...] ABDOMEN AND PELVIS WITHOUT CONT.: ELVIN REYNA [id number] -1975 M Ex Date: JUN 05, 2024@14:27 Req Phys: LORETTA HANSON Loc: CWM/NO/PACT 7 (Req'g Loc) Img Loc: NHM/CT Service: Unknown [place] [facility] [place] [address] (Case [id number] COMPLETE) CT ABDOMEN AND PELVIS WITHOUT CON(CT Detailed) CPT:32003 Reason for Study: lower abdominal pain Clinical History: h/o kidney stone, having worsening pain Report Status: Verified Date Reported: JUN 07, 2024 Date Verified: JUN 07, 2024 Car Sales Representative E-Sig: Report: CT ABDOMEN AND PELVIS WITHOUT [...] read-back verification. READING PHYSICIAN: Rashida Hawk MD -[phone] 06/07/2024 6:44 PST [facility] National Teleradiology Program [phone] (For Medical Practitioner Use Only) Attention Patients / Veterans: If you have questions or concerns about these test results, please contact your ordering provider or primary care team. Primary Diagnostic Code: CRITICAL ABNORMALITY Primary Interpreting Staff: RADIOLOGY,OUTSIDE SERVICE, Staff Physician / RADIOLOGY,OUTSIDE SERVICE [facility] Pathology Reports: +/- 30 days of the [...] Reporting Lab: [facility] [CLIA# [id number]] [address] [place] [id number] Accession [UID]: [id number] [[id number]] Received: Jun 05, 2024@14:23 Collection sample: URINE CLEAN CATCH Collection date: Jun 05, 2024 14:23 Site/Specimen: URINE Provider: LORETTA HANSON Test(s) ordered: URINE CULTURE(MWROX).......... completed: Jun 08, 2024 09:02 * BACTERIOLOGY FINAL REPORT => Jun 08, 2024 09:02 TECH CODE: [id number] Bacteriology Remark(s): NO GROWTH IN 24 HOURS, FINAL REPORT TO FOLLOW. FINAL AEROBIC REPORT: NO GROWTH =--=--=--=--=--=--=--=--=--= --=--=--=--=--=--=--=--=--=- -=--=--=--=--=--=--=-- Performing Laboratory: Bacteriology Report Performed By: [facility] [CLIA# [id number]] [address] [place] [address] CYRUS ESPINOZA [facility] Jun 02, 2024 11:29 AM LR SURGICAL PATHOLOGY REPORT: LOCAL TITLE: LR SURGICAL PATHOLOGY REPORT STANDARD TITLE: PATHOLOGY DIAGNOSTIC STUDY REPORT DATE OF NOTE: JUN 02, 2024@11:29:44 ENTRY DATE: JUN 02, 2024@11:29:44 AUTHOR: MAGDALENA STOCKTON MD EXP COSIGNER: URGENCY: STATUS: COMPLETED $APHDR Reporting Lab: [facility] [CLIA# [id number]] [address] [place] [address] - - - - - - - [...] - - - PATHOLOGY REPORT [facility] - - - - [...] - - - - BRIEF CLINICAL HISTORY: 3 Clinicl Hx: 48 year old man [...] - - - PATHOLOGY REPORT Accession No. [facility] 24 533 - - - - - - - - - - - - - - - - - - - - - - - - - - - - - - - - - - - - - - - - Gross description: [facility] 25 [id number];;1;Melinda REYNA This is a [facility] case number [facility] 24 533. Received in formalin labeled with [...] lower back: Hemangioma, completely excised. CPT code 62341 /roberto/ MAGDALENA STOCKTON MD Board Certified Dermatopathologist Signed Jun 02, 2024@11:29 Performing Laboratory: Surgical Pathology Report Performed By: [facility] [CLIA# [id number]] [address] [place] [phone] $FTR - - - - - - [...] - ELVIN REYNA JR STANDARD FORM 515 ID:[id number] SEX:M :1975 AGE: 48 LOC:CWM/NO/GS PCP: Loretta [...] EXP COSIGNER: URGENCY: STATUS: COMPLETED [facility] please fax to: [facility] [address] [address] [phone] CT ABDOMEN AND PELVIS WITHOUT CONT. HISTORY: [...] can be made. /roberto/ Loretta Hanson DNP, FLYING SQUAD SALESPERSON-BC, CNL Primary Care Nurse Practitioner Signed: 06/16/2024 14:28 Receipt Acknowledged By: 06/16/2024 14:36 /roberto/ BRUCE STOLL ADVANCED OFFICE PROFESSIONAL LORETTA HANSON [place] [facility] [place] [facility] Jun 05, 2024 02:08 PM PRIMARY CARE NURSE PRACTITIONER OUTPATIENT NOTE: LOCAL TITLE: NURSE PRACTITIONER OUTPATIENT NOTE STANDARD TITLE: PRIMARY CARE NURSE PRACTITIONER OUTPATIENT NOTE DATE OF NOTE: JUN 05, 2024@14:08 ENTRY DATE: JUN 05, 2024@14:08:59 AUTHOR: LORETTA HANSON COSIGNER: URGENCY: STATUS: COMPLETED Chief complaint: Patient is a 48 year old [place]. HPI: Pleasant male here because of painful [...] F [36.8 C] (06/05/2024 13:52)131/82 (06/05/2024 13:52)91 (06/05/2024:)20 (06/05/2024:52)2 (06/05/2024:)BMI: 39.5244 lb [110.68 kg] (06/05/2024:52) is alert and oriented X3 Assessment/plan: Active [...] this VA (local) and dispensed from another VA or [...] or non-VA provider. /roberto/ Loretta Hanson DNP, FLYING SQUAD SALESPERSON-BC, CNL Primary Care Nurse Practitioner Signed: 06/05/2024 14:16 LORETTA HANSON [facility]
--- OUTSIDE RECORDS SUMMARY | 2024-10-20 10:10 | XMS_ITS | Encounter Summary ---
Author Name [facility] [place] Address [address] [place] [address] Care Team Providers Care Lofter Name Role Phone LORETTA HANSON Primary Care [...] [place] H Aug 05, 2021 01 [id number] YOUNG WALSH PATIENT Selected Encounter This section includes the information on record at [place] for the Encounter. Date/Time Encounter Type Encounter Description Reason Pro vider Source Oct 13, 2024 10:23 AM Outpatient Encounter PODIATRY IHE Encounter Template [...] - MEDICINE [place] [facility] [place] [facility] Oct 16, 2024 11:30 AM AMBULATORY - REHAB MEDICIN E [facility] [place] [facility] Oct 19, 2024 04:00 PM AMBULATORY - [facility] Oct 20, 2024 09:30 AM AMBULATORY - MEDICINE [place] [facility] [facility] Oct 27, 2024 02:30 PM AMBULATORY - SURGERY [facility] Dec 01, 2024 03:00 PM AMBULATORY - MEDICINE [place] [facility] [place] [facility] Jan 04, 2025 10:30 AM AMBULATORY - MEDICINE [place] [facility] [facility] Jan 19, 2025 11:00 AM AMBULATORY - MEDICINE [facility] Active, Pending, and Scheduled Orders This section includes a listing of several types of active, pending, and scheduled orders, including clinic medications orders, diagnostic test orders, procedure orders and consult orders; where the start date of the order is 45 days before the date of the Encounter or 45 days after the date of theEncounter. The data comes from all [facility]. Test Date/Time Test Type Test Details Facility Name Oct 06, 2024 03:06 PM Consult Order COMMUNITY CARE-GEN SURGERY Cons [facility] Oct 06, 2024 03:09 PM Consult Order COMMUNITY CARE-PHYSICAL THERAPY Cons Office Admin[facility] Oct 12, 2024 06:55 AM Consult Order PODIATRIC SURGERY/ULCER CONSULT IF NEWT Cons Office Admin's [facility] [place] [facility] Oct 16, 2024 12:00 AM Laboratory - Chemi stry Order CALCIUM, 24HR PANEL 24 HR URINE SP [facility] Lab Results: +/- 30 days of the encounter This section includes the Chemistry and Hematology Lab Results on record with [place] for the patient. Radiology Reports and Pathology Reports are provided separately, in subsequent sections. Lab Results This section contains the Chemistry/Hematology Results that were resulted 30 days before or 30 daysafter the date of the Encounter. Date/Time Source Result Type Result - Unit Interpretation Reference Range Comment Sep 30, 2024 03:15 PM [facility] VITAMIN B12 Specimen Type: SERUM No comment entered. Ordering Provider: MAR HANSON Report Released Date/Time: Sep 30, 2024 02:42 PM Reporting Lab: [address] [address] Performing Lab: [address] [address] VITAMIN B12 332 pg/mL 200-900 Sep 30, 2024 03:15 PM [facility] MAGNESIUM Specimen Type: SERUM No comment entered. Ordering Provider: MAR HANSON Report Released Date/Time: Sep 30, 2024 02:41 PM Reporting Lab: [address] [address] Performing Lab: [address] [address] MAGNESIUM 1.7 mg/dL 1.6-2.6 Advance Directives: All historical and current Section [...] SARAVIA Sep 27, 2005 ADVANCE DIRECTIVE [facility] Sep 10, 2005 ADVANCE DIRECTIVE DISCUSSION [...] the Encounter. The data comes from all [place] treatment facilities. Date/Time Radiology Report Provider Source Sep 23, 2024 11:21 AM FOOT 3 OR MORE VIEWS (RIGHT): YOUNG BOYD [id number] -1975 M Exm Date: SEP 23, 2024@11:21 Req Phys: GANGA DAVID Loc: [facility] PACT FLOAT PA (Req'g Loc Img Loc: [facility]BUILDING 1 Service: [place] [address] (Case [id number] COMPLETE) FOOT 3 OR MORE VIEWS (RIGHT) (RAD Detailed) CPT:77548 Proc Modifiers : RIGHT CPT Modifiers : RT RIGHT SIDE Reason for Study: pre-podiatric evaluation Clinical History: Report Status: Verified Date Reported: SEP 23, 2024 Date Verified: SEP 23, 2024 Ice Skating Coach E-Sig:/ES/KRISTYN BERKOWITZ JR Report: Study: Weight-bearing AP, [...] Primary Interpreting Staff: KRISTYN BERKOWITZ JR, Radiologist (Ice Skating Coach) /KRISTYN VASQUES JR [facility] Sep 14, 2024 10:33 AM KIDNEY AND BLADDER ULTRASOUND: YOUNG BOYD [id number] -1975 M Exm Date: SEP 14, 2024@10:33 Req Phys: LORETTA HANSON Loc: [facility] PACT 7 SECURITY SYSTEMS ADMINISTRATOR (Req'g Loc) Img Loc: ULTRASOUND Service: [place] [address] (Case 41 COMPLETE) ULTRASOUND KIDNEYS (US Detailed) CPT:93846 Reason for Study: follow up (Case 42 COMPLETE) ULTRASOUND URINARY BLADDER (US Detailed) CPT:20028 Clinical History: Some ultrasound tests require a prep. recent stone left ureter, stent removed on 08/03, seeking this to be done six weeks from now. Report Status: Verified Date Reported: SEP 14, 2024 Date Verified: SEP 14, 2024 Ice Skating Coach E-Sig:/ES/KRISTYN BERKOWITZ JR Report: Study: Genitourinary ultrasound. [...] Primary Interpreting Staff: KRISTYN BERKOWITZ JR, Radiologist (Raul) /KRISTYN VASQUES JR [facility] Encounter Notes: All associated encounter notes This section contains the clinical notes associated to the Encounter. Date/Time Encounter Note(s) Provider Source Oct 13, 2024 10:23 AM LETTERS: LOCAL TITLE: MSA PATIENT LETTER STANDARD TITLE: LETTERS DATE OF NOTE: OCT 13, 2024@10:23 ENTRY DATE: OCT 13, 2024@10:23:58 AUTHOR: KALYN FONTAINE [place] EXP COSIGNER: URGENCY: STATUS: COMPLETED [address] [address] Young Boyd Jr [address] [address] OCT 13, 2024 Dear Young Boyd Jr We are attempting to contact you regarding a consult submitted in your behalf for an appointment in Podiatry clinic in [facility]. Please contact the Podiatry clinic to schedule an appointment. *Please Note* If we do not hear from you within 14 days by Oct to schedule your appointment, the consultation to this clinic will be cancelled. You may contact the clinic at [phone] between the hours of 7:30 and 3:30 pm. If this appointment has already been scheduled, please disregard this letter. Sincerely, Podiatry Clinic [facility] KALYN FONTAINE
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
--- OUTSIDE RECORDS SUMMARY | 2024-10-20 10:10 | XMS_ITS ---
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 Date/Time Encounter Type Encounter Description Reason Provider Source Nov 26, 2023 10:35 AM OFFICE O/P EST LOW 20 MIN OPTOMETRY ICD-10-CM L71.8 SHANTAL Erazo Encounter Template Text not used by [place] Assessments - Encounter Diagnoses This section includes the primary and secondary diagnoses documented for the Encounter. Date/Time Primary/Secondary Diagnosis Diagnosis Name Provider Source Nov 27, 2023 10:05 AM PRIMARY Other SHANTAL Parham [facility] [place] [facility] Nov 27, 2023 10:05 AM SECONDARY Meibomian gland dysfnct left eye, upper and lower eyelids BRANDOSHANTAL Zahra [facility] [place] Nov 27, 2023 10:05 AM SECONDARY Meibomian gland dysfnct right eye, upper and lower eyelids BRANDOSHANTAL Zahra [facility] [place] [facility] Nov 27, 2023 10:05 AM SECONDARY Squamous blepharitis left eye, upper and lower eyelids BRANDOSHANTAL E [place] [facility] [place] [facility] Plan of Treatment: Future Appointments (+ 6 months) and Future Tests (+/- 45 days) The Plan of Treatment section includes future care activities for the patient from all [place] [facility] This section includes future appointments and future orders which are active, pending or scheduled. Future Appointments This section includes appointments that were scheduled to occur 6 months from the date of the Encounter, up to a maximum of 20 appointments. The data comes from all [place] treatment facilities. Appointment Date/Time Appointment Type Appointme nt Facility Name Dec 03, 2023 01:30 PM AMBULATORY - [facility]AB MEDICIN E [facility] [place] December 05, 2023 08:00 AM AMBULATORY - MEDICINE [facility] [place] [facility] December 10, 2023 03:00 PM AMBULATORY - REHAB MEDICIN E [facility] [place] [facility] December 17, 2023 03:00 PM AMBULATORY - REHAB MEDICIN E [facility] [place] [facility] December 24, 2023 03:00 PM AMBULATORY - REHAB MEDICIN E [facility] [place] [facility] January 01, 2024 11:00 AM AMBULATORY - MEDICINE [facility] [place] [facility] Jan 07, 2024 09:30 AM AMBULATORY - REHAB MEDICIN E [facility] [place] [facility] Jan 08, 2024 09:00 AM AMBULATORY - PSYCHIATRY [facility] [place] [facility] Jan 21, 2024 10:30 AM AMBULATORY - MEDICINE [facility] [place] [facility] Jan 21, 2024 11:30 AM AMBULATORY - MEDICINE [facility] [place] [facility] Apr 24, 2024 02:00 PM AMBULATORY - MEDICINE [place] [facility] [place] [facility] Apr 29, 2024 01:00 PM AMBULATORY - MEDICINE [place] [facility] [place] [facility] Apr 29, 2024 02:00 PM AMBULATORY - MEDICINE [place] [facility] [place] [facility] May 13, 2024 09:30 AM [facility] May 21, 2024 11:00 AM [facility] May 22, 2024 01:30 PM [facility] Lab Results: +/- 30 days of the encounter This section includes the Chemistry and Hematology Lab Results on record with [place] for the patient. Radiology Reports and Pathology Reports are provided separately, in subsequent sections. Lab Results This section contains the Chemistry/Hematology Results that were resulted 30 days before or 30 daysafter the date of the Encounter. Date/Time Source Result Type Result - Unit Interpretation Reference Range Comment Nov 11, 2023 09:54 AM [facility] [id number] Specimen Type: BLOOD Comment: SPECIMEN SHIPPED ON MANIFEST [id number] Ordering Provider: MAGGIE GALVAN Report Released Date/Time: Sep 13, 2023 12:46 PM Reporting Lab: [facility] [address] [id number] Performing Lab: [facility] Vital Signs: All taken on the encounter date This section contains inpatient and outpatient Vital Signs collected on the date of the Encounter. Date/Time Temperature Pulse Blood Pressure Respiratory Rate SP02 Pain Height Weight Body Mass Index Source Nov 26, 2023 10:01 AM 98.8 94 126/80 16 0 [facility] Social History: Smoking Status (Most current) and Tobacco Use (All prior to encounter date) This section includes the most current, and the historical, smoking and tobacco- related health factors from the [place] facility where the Encounter took place. Current Smoking Status This section includes the most current smoking, or tobacco-related health factor, from the [place] facility where the Encounter took place. Date/Time Current Smoking Status Comment Facil ity Aug 26, 2023 10:00 AM [place]-TOBACCO FORMER USER [facility] Tobacco Use History This section includes a history of the smoking, or tobacco-related health factors, that were collected on or before the date of the Encounter. The data comes from the [place] facility where the Encounter took place. Date/Time Smoking Status/Tobacco Use Comment Nemo landry Aug 26, 2023 10:00 AM AL-TOBACCO QUIT 15 YRS OR MORE [facility] Apr 11, 2022 11:00 AM [place]-TOBACCO FORMER USER [facility] Apr 11, 2022 11:00 AM AL-TOBACCO QUIT 15 YRS OR MORE [facility] Advance Directives: All historical and current Section Date Range: From patient's date of to the date document was created. This section includes ALL of a patient's completed or amended [place] Advance and Rescinded Directives. The entries below indicate that a directive exists for the patient, but an actual copy is not included with this document. The data comes from all [place] facilities. Date Advance Directives Provider Source May 16, 2011 ADVANCE DIRECTIVE DISCUSSION TON SARAVIA Sep 27, 2005 ADVANCE DIRECTIVE SHARLENE SIDHU [facility] Sep 10, 2005 ADVANCE DIRECTIVE DISCUSSION [...] Gastro-Esophageal Reflux Disease [facility] [id number]) 8. Anxiety ([facility] [id number]) 9. Hyperlipidemia ([facility] [id number]) 10. Fatty liver 11. Family history of [...] this [facility] (local) and dispensed from another [place] or [facility] facility (remote) as well as inpatient [...] Signed: 11/27/2023 10:08 SUNDAY [facility]
--- OUTSIDE RECORDS SUMMARY | 2024-10-20 10:10 | XMS_ITS | Encounter Summary ---
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 LEROY HANSON AM J [place] [facility] [place] [facility] Jul 23, 2024 12:50 PM SECONDARY Calculus of kidney LEROY HANSON AM [place] [facility] [place] [facility] Jul 23, 2024 12:50 PM SECONDARY Chest pain, unspecified JODYJOHNATHAN MENDIOLA [place] [facility] [place] [facility] Jul 23, 2024 12:50 PM SECONDARY Disorder of parathyroid gland, unspecified LEROY HANSON AM J [place] [facility] [place] [facility] Jul 23, 2024 12:50 PM SECONDARY Gastro-esophageal reflux disease without esophagitis LEROY HANSON AM [place] [facility] [place] [facility] Plan of Treatment: Future Appointments (+ 6 months) and Future Tests (+/- 45 days) The Plan of Treatment section includes future care activities for the patient from all [place] treatmentfacilities. This section includes future appointments and future orders which are active, pending or scheduled. Future Appointments This section includes appointments that were scheduled to occur 6 months from the date of the Encounter, up to a maximum of 20 appointments. The data comes from all [place] treatment facilities. Appointment Date/Time Appointment Type Appointme nt Facility Name Aug 03, 2024 01:00 PM AMBULATORY - MEDICINE [place] [facility] [place] [facility] Aug 06, 2024 02:30 PM AMBULATORY - MEDICINE [place] [facility] [place] [facility] Aug 14, 2024 11:30 AM AMBULATORY - MEDICINE [place] [facility] [place] [facility] Sep 02, 2024 01:00 PM AMBULATORY - SURGERY RADHA BUENOUT [facility] Sep 02, 2024 01:00 PM AMBULATORY - MEDICINE [facility] [place] [facility] Sep 03, 2024 03:00 PM AMBULATORY - MEDICINE [facility] [place] [facility] Sep 14, 2024 10:30 AM AMBULATORY - NONE [facility] [place] [facility] Sep 28, 2024 10:30 AM AMBULATORY - MEDICINE [facility] [place] [facility] Sep 30, 2024 02:30 PM AMBULATORY - MEDICINE [facility] [place] [facility] Oct 05, 2024 03:00 PM AMBULATORY - MEDICINE [place] [facility] [place] [facility] Oct 13, 2024 02:15 PM AMBULATORY - REHAB MEDICIN E [facility] [place] [facility] Oct 15, 2024 10:00 AM AMBULATORY - MEDICINE [facility] [place] [facility] Oct 16, 2024 11:30 AM AMBULATORY - REHAB MEDICIN E [facility] [place] [facility] Oct 19, 2024 04:00 PM AMBULATORY - REHAB MEDICIN E [facility] [place] [facility] Oct 20, 2024 09:30 AM AMBULATORY - MEDICINE [place] [facility] [place] [facility] Oct 27, 2024 02:30 PM AMBULATORY - SURGERY NEWIN G[place] Dec 01, 2024 03:00 PM AMBULATORY - MEDICINE [place] [facility] [place] [facility] Jan 04, 2025 10:30 AM AMBULATORY - MEDICINE [place] [facility] [place] [facility] Jan 19, 2025 11:00 AM AMBULATORY - MEDICINE [facility] Active, Pending, and Scheduled Orders This [...] Test Type Test Details Facility Name Jun 18, 2024 12:00 AM Laboratory - Chemi stry Order DRUGS OF ABUSE URINE (DRUG) SP [facility] Jul 23, 2024 12:00 AM Laboratory - Chemi stry Order PTH INTACT BLOOD (RED-PLAIN) [facility] Lab Results: +/- 30 days of [...] - Unit Interpretation Reference Range Comment Aug 10, 2024 02:45 PM [facility] OCCULT BLOOD FIT X1 SCREEN(IN-HOUSE) Specimen Type: FECES No comment entered. Ordering Provider: LEROY HANSON AM Report Released Date/Time: Apr 24, 2024 02:10 PM Reporting Lab: [facility] [address] [facility] [address] Performing Lab: [facility] [address] [facility] [address] OCCULT BLOOD (FIT)#1 OF 1 Negative NEG Vital Signs: All taken on the encounter date This section contains inpatient and outpatient Vital Signs collected on the date of the Encounter. Date/Time Temperature Pulse Blood Pressure Respiratory Rate SP02 Pain Height Weight Body Mass Index Source Jul 23, 2024 11:19 AM 98.6 93 129/86 20 97 2 66 235 38 [facility] Social History: Smoking Status (Most [...] Terri ity Aug 26, 2023 10:00 AM [place]-TOBACCO FORMER USER [facility] Tobacco Use History This section includes a history of the smoking, or tobacco-related health factors, that were collected on or before the date of the Encounter. The data comes from the [place] facility where the Encounter took place. Date/Time Smoking Status/Tobacco Use Comment F acility Aug 26, 2023 10:00 AM [place]-TOBACCO QUIT 15 YRS OR MORE [facility] Apr 11, 2022 11:00 AM [place]-TOBACCO FORMER USER [facility] Apr 11, 2022 11:00 AM [place]-TOBACCO QUIT 15 YRS OR MORE [facility] [...] Source May 16, 2011 ADVANCE DIRECTIVE DISCUSSION MANJITDEJAHA [place] Sep 27, 2005 ADVANCE DIRECTIVE SHARLENE SIDHU [facility] Sep 10, 2005 ADVANCE DIRECTIVE DISCUSSION FRANCE RODRIGEZ [facility] Aug 14, 2004 ADVANCE DIRECTIVE DISCUSSION LAURENREUGLOCecily Kamara [place] Encounter Notes: All associated encounter notes This section contains the clinical notes associated to the Encounter. Date/Time Encounter Note(s) Provider Source Jul 23, 2024 02:55 PM CARDIOLOGY DIAGNOSTIC STUDY CONSULT: LOCAL TITLE: CONSULT REPORT/EKG STANDARD TITLE: CARDIOLOGY DIAGNOSTIC STUDY CONSULT DATE OF NOTE: JUL 23, 2024@14:55 ENTRY DATE: JUL 23, 2024@14:55:59 AUTHOR: JOHNATHAN VERA EXP COSIGNER: URGENCY: STATUS: COMPLETED EKG tracing was performed for diagnosis of Chest Pain, unspecified ordered by LORETTA HANSON /roberto/ Johnathan Vera, Health Business Intelligence Consultant NATIONAL RECRUITER,PRIMARY CARE Signed: 07/23/2024 14:57 [place] [facility] [place] [facility] Jul 23, 2024 12:43 PM PRIMARY CARE NURSE PRACTITIONER OUTPATIENT NOTE: LOCAL TITLE: NURSE PRACTITIONER OUTPATIENT NOTE STANDARD TITLE: PRIMARY CARE NURSE PRACTITIONER OUTPATIENT NOTE DATE OF NOTE: JUL 23, 2024@12:43 ENTRY DATE: JUL 23, 2024@12:43:09 AUTHOR: LORETTA HANSON COSIGNER: URGENCY: STATUS: COMPLETED Chief complaint: Patient is a 48 year old . HPI: Pleasant male [place] here with his girlfriend to follow up post hospitalization. [facility] Admit: 07/18/24 D/C: 07/20/24 Hospital Course: 48-year-old male with history of nephrolithiasis, GERD, JR on CPAP, who underwent lithotripsy for 1.3 cm left renal stone on 07/16/2024 presenting to the emergency department with complaints of acute onset of left-sided flank pain along with nausea and vomiting, found to have another left ureter stone of 0.6cm now s/p stent. # Left ureteral stone, History of nephrolithiasis, Hematuria Patient was recently found to have 1.3 cm left renal stone status post shockwave lithotripsy 07/16. Now presented with acute onset of left-sided flank pain with radiation to the back and groin with hematuria. CT reveals partially obstructing renal stone in the left measuring 0.6 cm. He was started on amoxicillin by his urologist after lithotripsy for total of 5 days which we will continue for now.--low threshold to transition to IV antibiotics if nay signs of infection. Patient is allergic to Flomax. - underwent left ureteral stent placement on 07/19 and definitive intervention for stone removal will be done on outpatient basis with his primary urologist, Dr. Perez - still has some pain in left flank - discharged on pyridium and oxycodone and tylenol # RACHEL (acute kidney injury): Creatinine peaked at 1.67 and then improved to 1.1 with IVF and relief of left ureteral obstruction with left ureteral stone Continue IV fluids # Chronic GERD: PPI # JR (obstructive sleep apnea): Pt brought his own CPAP OMN: left obstructive uropathy s/p left ureter stent. RACHEL f/u creatinine- if it is improving and he can go home f/u with urology. Discharge Medications: Acetaminophen 325mg 3 tablet 3 times a day as needed Amoxicillin 500mg Every 12 hours Cholecalciferol 10mcg Daily Omeprazole 20mg Daily Phenazopyridine 100mg 3 times a day F/U Recommendations Alia Perez- Please followup in 2 weeks for left ureteral stent removal and for removal/ treatment of stone Feeling better since home from kidney stone stand point, follow up in place. He does note worsening gerd with a reoccurence of food getting caught up - h/o stricture, last dialation was Aug 2022. Also while in hosp, PTH was elevated. Allergies: Patient has answered NKA The following [...] EVERY 6 HOURS NEEDED Indication: FOR COUGH Pending Outpatient Medications Status 1) OMEPRAZOLE 20MG EC CAP TAKE TWO CAPSULES BY MOUTH ONCE DAILY PENDING Indication: FOR EXCESSIVE PRODUCTION OF STOMACH ACID Active Non-VA Medications Status 1) Non-VA CHOLECALCIF 10MCG (D3-400UNIT) TAB 10MCG BY MOUTH ACTIVE ONCE DAILY Indication: FOR VITAMIN D DEFICIENCY 2) Non-VA OTHER CAP/TAB RACHANA WORKZ MUSHROOM COMPLEX BY MOUTH ACTIVE ONCE DAILY 3) Non-VA PROBIOTIC (CULTURELLE DIGESTIVE DAILY) CAP/TAB BY ACTIVE MOUTH 6 Total Medications Review of Systems: Constitutional: (-)for Fevers, chills, weakness, nights sweats On examination: 98.6 F [37.0 C] (07/23/2024 11:19)129/86 (07/23/2024 11:19)93 (07/23/2024 11:19)20 (07/23/2024 11:19)2 (07/23/2024 11:19)BMI: 38.0235 lb [106.59 kg] (07/23/2024 11:19) [place] is alert and oriented X3 Neck: supple without masses, trachea midline, ln not palpable, no thyromegaly Cardiovasc: 2plus carotids without bruits, no JVD [...] source for the followin. Poon's esophagus - i advised to increase omeprazole from 20mg to 40mg daily. I am referred him back to [facility]. 2. Abnormal PTH - I will get updated labs, refer to endocrine. EKG today NSR. 3. Kidney stone - as above Today I spent 40 minutes on some or all of the following: chart review, history, physical examination, treatment planning, education and counseling of the patient/family/progressive care nurse, placing orders, communicating with other health care providers, completing health and wellness screenings (see below) and documentation in the electronic health record. Follow up visit as scheduled. Medication Reconciliation: Outpatient: Has the patient been taking medications as documented in the EMLR? YES: The patient has been taking medications as documented in the EMLR. Essential Medication List for Review used to complete this medication reconciliation. INCLUDED IN THIS LIST: Alphabetical list of active outpatient prescriptions dispensed from this [place] (local) and dispensed from another [place] or [facility] facility (remote) as well as inpatient [...] next appointment, whether with a [place] or non[place] provider. /roberto/ Loretta Hanson DNP, OIL DRILLER-BC, CNL Primary Care Nurse Practitioner Signed: 07/23/2024 12:51 LORETTA HANSON [place] [facility]
--- OUTSIDE RECORDS SUMMARY | 2024-10-20 10:10 | XMS_ITS | Encounter Summary ---
Author Name [facility] [place] [facility] [place] [facility] [place] [facility] [place] Address [address] [facility], [place] [address] Care Team Providers Care Bath Attendant Name Role Phone LORETTA HANSON Primary [...] [place] Aug 05, 2021 01 [id number] ELVIN WALSH PATIENT Selected Encounter This section includes the information on record at [place] for the Encounter. Date/Time Encounter Type Encounter Description Reason Provider Source Sep 30, 2024 02:30 PM Outpatient Encounter PRIMARY CARE/MEDICINE LORETTA HANSON [facility] Encounter Template Text not used by [place] Plan of Treatment: Future Appointments (+ 6 [...] 20 appointments. The data comes from all [facility]. Appointment Date/Time Appointment Type Appointme nt Facility Name Oct 05, 2024 03:00 PM AMBULATORY - MEDICINE [facility] [place] [facility] Oct 13, 2024 02:15 PM AMBULATORY - REHAB MEDICIN E [facility] [place] [facility] Oct 15, 2024 10:00 AM AMBULATORY - MEDICINE [facility] [place] [facility] Oct 16, 2024 11:30 AM AMBULATORY - REHAB MEDICIN E [facility] [place] [facility] Oct 19, 2024 04:00 PM AMBULATORY - REHAB MEDICIN E [facility] [place] [facility] Oct 20, 2024 09:30 AM AMBULATORY - MEDICINE [facility] [place] [facility] Oct 27, 2024 02:30 PM AMBULATORY - SURGERY [facility] Dec 01, 2024 03:00 PM AMBULATORY - MEDICINE [facility] [place] [facility] Jan 04, 2025 10:30 AM AMBULATORY - MEDICINE [place] [facility] [place] [facility] Jan 19, 2025 11:00 AM AMBULATORY - MEDICINE [place] [facility] [place] [facility] Active, Pending, and Scheduled Orders This section includes a listing of several types of active, pending, and scheduled orders, including clinic medications orders, diagnostic test orders, procedure orders and consult orders; where the start date of the order is 45 days before the date of the Encounter or 45 days after the date of theEncounter. The data comes from all [facility]. Test Date/Time Test Type Test Details Facility Name Oct 06, 2024 03:06 PM Consult Order COMMUNITY CARE-GEN SURGERY Cons Launch Manager's Choice [facility] [place] [facility] Oct 06, 2024 03:09 PM Consult Order COMMUNITY CARE-PHYSICAL THERAPY Cons Launch Manager's Choice [facility] [place] [facility] Oct 12, 2024 06:55 AM Consult Order PODIATRIC SURGERY/ULCER CONSULT [facility] Cons Launch Manager's Choice [facility] [place] [facility] Oct 16, 2024 12:00 AM Laboratory - Chemi stry Order CALCIUM, 24HR PANEL 24 HR URINE SP [facility] [place] [facility] Lab Results: +/- 30 [...] Range Comment Sep 30, 2024 03:15 PM [facility] VITAMIN B12 Specimen Type: SERUM No comment entered. Ordering Provider: MAR HANSON Report Released Date/Time: Sep 30, 2024 02:42 PM Reporting Lab: [address] [address] Performing Lab: [address] [address] VITAMIN B12 332 pg/mL 200-900 Sep 30, 2024 03:15 PM [facility] MAGNESIUM Specimen Type: SERUM No comment entered. Ordering Provider: MAR HANSON Report Released Date/Time: Sep 30, 2024 02:41 PM Reporting Lab: [address] [address] Performing Lab: [address] [address] MAGNESIUM 1.7 mg/dL 1.6-2.6 Sep 03, 2024 04:06 PM [facility] VITAMIN D (25-OH) Specimen Type: SERUM No comment entered. Ordering Provider: MAR HANSON Report Released Date/Time: Jul 23, 2024 12:38 PM Reporting Lab: [address] [address] Performing Lab: [address] [address] VITAMIN D (25-OH) 35 ng/mL 20-50 Sep 03, 2024 04:06 PM [facility] TSH Specimen Type: SERUM No comment entered. Ordering Provider: MAR HANSON Report Released Date/Time: Jul 23, 2024 12:38 PM Reporting [facility] [address] [facility] [address] Performing Lab: [facility] [address] [address] TSH 1.59 u[IU]/mL 0.35-5.00 Sep 03, 2024 04:06 PM [facility] PTH INTACT Specimen Type: SERUM No comment entered. Ordering Provider: KAVIN STORY Report Released Date/Time: Aug 30, 2024 05:36 PM Reporting Lab: [address] [address] Performing Lab: [facility] [address] [address] PTH INTACT 96.0 pg/mL H 8.7-77.1 Sep 03, 2024 04:06 PM [facility] CALCIUM Specimen Type: SERUM No comment entered. Ordering Provider: KAVIN STORY Report Released Date/Time: Aug 30, 2024 05:36 PM Reporting Lab: [address] [address] Performing Lab: [facility] [address] [address] CALCIUM 9.3 mg/dL 8.5-10.2 Sep 03, 2024 04:06 PM [facility] BASIC METABOLIC PANEL (non-fasting) Specimen Type: SERUM No comment entered. Ordering Provider: KAVIN STORY Report Released Date/Time: Aug 30, 2024 05:36 PM Reporting Lab: [address] [address] Performing Lab: [facility] [address] [address] UREA NITROGEN 18 mg/dL 7-25 GLUCOSE 94 [...] Pain Height Weight Body Mass Index Source Sep 30, 2024 02:28 PM 98 98 134/84 16 97 0 234 38 [facility] Social History: Smoking Status (Most current) [...] Facil ity Aug 03, 2024 01:00 PM MT-TOBACCO NEVER U SED OTHER TYPE [facility] Tobacco Use History This section includes a history of the smoking, or tobacco-related health factors, that were collected on or before the date of the Encounter. The data comes from the [place] facility where the Encounter took place. Date/Time Smoking Status/Tobacco Use Comment F acility Aug 03, 2024 01:00 PM VA-TOBACCO NEVER U SED OTHER TYPE [facility] Aug 26, 2023 10:00 AM VA-TOBACCO FORMER USER [facility] Aug 26, 2023 10:00 AM VA-TOBACCO QUIT 15 YRS OR MORE [facility] [place] [facility] Apr 11, 2022 11:00 AM VA-TOBACCO FORMER USER [place] [facility] [place] [facility] Apr 11, 2022 11:00 AM VA-TOBACCO QUIT 15 YRS OR MORE [facility] Advance Directives: All historical [...] 16, 2011 ADVANCE DIRECTIVE DISCUSSION TON SARAVIA DIANE Sep 27, 2005 ADVANCE DIRECTIVE SHARLENE SIDHU [facility] Sep 10, 2005 ADVANCE DIRECTIVE DISCUSSION FRANCE RODRIGEZ [facility] Aug 14, 2004 ADVANCE DIRECTIVE DISCUSSION [...] 3 OR MORE VIEWS (RIGHT): ELVIN REYNA [id number] -[id number] M Ex Date: SEP 23, 2024@11:21 Req Phys: GANGA DAVID Pat Loc: [id number] PACT FLOAT PA (Req'g Loc Img Loc: [facility]/BUILDING 1 Service: Unknown [place] [address] (Case 107 COMPLETE) FOOT 3 OR MORE VIEWS (RIGHT) (RAD Detailed) CPT:46959 Proc Modifiers : RIGHT CPT Modifiers : RT RIGHT SIDE Reason for Study: pre-podiatric evaluation Clinical History: Report Status: Verified Date Reported: SEP 23, 2024 Date Verified: SEP 23, 2024 Judicial Assistant E-Sig:/ES/KRISTYN BERKOWITZ JR Report: Study: Weight-bearing AP, [...] Primary Interpreting Staff: KRISTYN BERKOWITZ JR, Radiologist (Judicial Assistant) /KRISTYN VASQUES JR [facility] Sep 14, 2024 10:33 AM KIDNEY AND BLADDER ULTRASOUND: ELVIN REYNA [id number] -[id number] M Exm Date: SEP 14, 2024@10:33 Req Phys: LORETTA HASNON Loc: [facility] PACT 7 TRANSITION LEAD (Req'g Loc) Img Loc: ULTRASOUND Service: [place] [address] (Case 41 COMPLETE) ULTRASOUND KIDNEYS (US Detailed) CPT:62999 Reason for Study: follow up (Case 42 COMPLETE) ULTRASOUND URINARY BLADDER (US Detailed) CPT:78411 Clinical History: Some ultrasound tests require a prep. recent stone left ureter, stent removed on 08/03, seeking this to be done six weeks from now. Report Status: Verified Date Reported: SEP 14, 2024 Date Verified: SEP 14, 2024 Judicial Assistant E-Sig:/ES/KRISTYN BERKOWITZ JR Report: Study: Genitourinary ultrasound. [...] Primary Interpreting Staff: KRISTYN BERKOWITZ JR, Radiologist (Judicial Assistant) /KRISTYN VAQSUES JR [facility] Encounter Notes: All associated encounter notes This section contains the clinical notes associated to the Encounter. Date/Time Encounter Note(s) Provider Source Oct 14, 2024 02:14 PM ADDENDUM: LOCAL TITLE: Addendum STANDARD TITLE: ADDENDUM DATE OF NOTE: OCT 14, 2024@14:14:45 ENTRY DATE: OCT 14, 2024@14:14:47 AUTHOR: INGRID CHAMORRO COSIGNER: URGENCY: STATUS: COMPLETED Vet sends requesting above Magnesium suppliment for mail delivery /es/ INGRID CHAMORRO MSN, RN, CNL Primary Care RN Signed: 10/14/2024 14:15 Receipt Acknowledged By: 10/14/2024 14:21 /es/ Loretta Hanson DNP, CAROLINA-PARAG, MARILYN Primary Care Nurse Practitioner --- Original Document --- 10/06/24 NURSE PRACTITIONER OUTPATIENT NOTE: [facility] Toll Free Number Primary Care Telephone Assistance can be reached at extension [phone] [facility] scheduling can be reached at extension [phone] [facility] scheduling can be reached at ext [phone] OCT 06, 2024 ELVIN REYNA [address], [address] Thank you for coming in for your tests. Your recent test results are as follows: LAB CHEMISTRY & HEMATOLOGY Collection DT Specimen Test Name Result Units Ref Range 09/30/2024 15:15 SERUM VITAMIN B12 332 pg/mL 200 - 900 09/30/2024 15:15 SERUM MAGNESIUM 1.7 mg/dL 1.6 - 2.6 I have reviewed your results. Your magnesium is within normal limits but on the low end so you can consider a supplement. If you would like me to order it through the [place], let me know. Thank you for allowing me to be a part of your health care team. Please call if you have any questions or concerns. Sincerely, Loretta Hanson DNP, CAROLINA-BC, MARILYN Nurse Practitioner Primary Care PACT Raghav /roberto/ BENJAMÍN Paez DNP, MARILYN Primary Care Nurse Practitioner Signed: 10/06/2024 15:24 Receipt Acknowledged By: 10/07/2024 08:00 /roberto/ BRUCE STOLL ADVANCED EXTRACTION MACHINE OPERATOR INGRID CHAMORRO [facility] [place] [facility] Oct 06, 2024 03:22 PM PRIMARY CARE NURSE PRACTITIONER OUTPATIENT NOTE: LOCAL TITLE: NURSE PRACTITIONER OUTPATIENT NOTE STANDARD TITLE: PRIMARY CARE NURSE PRACTITIONER OUTPATIENT NOTE DATE OF NOTE: OCT 06, 2024@15:22 ENTRY DATE: OCT 06, 2024@15:22:21 AUTHOR: LORETTA HANSON EXP COSIGNER: URGENCY: STATUS: COMPLETED NURSE PRACTITIONER OUTPATIENT NOTE Has ADDENDA [facility] Toll Free Number Primary Care Telephone Assistance can be reached at extension [phone] [facility] scheduling can be reached at extension [phone] [facility] scheduling can be reached at ext [phone] OCT 06, 2024 ELVIN REYNA [address], [address] Thank you for coming in for your tests. Your recent test results are as follows: LAB CHEMISTRY & HEMATOLOGY Collection DT Specimen Test Name Result Units Ref Range 09/30/2024 15:15 SERUM VITAMIN B12 332 pg/mL 200 - 900 09/30/2024 15:15 SERUM MAGNESIUM 1.7 mg/dL 1.6 - 2.6 I have reviewed your results. Your magnesium is within normal limits but on the low end so you can consider a supplement. If you would like me to order it through the [place], let me know. Thank you for allowing me to be a part of your health care team. Please call if you have any questions or concerns. Sincerely, BENJAMÍN Wyman DNP, CNL Nurse Practitioner Primary Care PACT Raghav /roberto/ BENJAMÍN Paez DNP, MARILYN Primary Care Nurse Practitioner Signed: 10/06/2024 15:24 Receipt Acknowledged By: 10/07/2024 08:00 /roberto/ BRUCE STOLL ADVANCED EXTRACTION MACHINE OPERATOR 10/14/2024 ADDENDUM STATUS: COMPLETED Vet sends requesting above Magnesium suppliment for mail delivery /es/ INGRID CHAMORRO MSN, RN, CNL Primary Care RN Signed: 10/14/2024 14:15 Receipt Acknowledged By: * AWAITING SIGNATURE * LORETTA HANSON [facility] Sep 30, 2024 02:31 PM PREVENTIVE MEDICINE NURSING NOTE: LOCAL TITLE: CLINICAL REMINDERS/NURSING STANDARD TITLE: PREVENTIVE MEDICINE NURSING NOTE DATE OF NOTE: SEP 30, 2024@14:31 ENTRY DATE: SEP 30, 2024@14:31:13 AUTHOR: ROSIO HOWELL EXP COSIGNER: URGENCY: STATUS: COMPLETED Homelessness/Food Insecurity Screen: In the past 2 [...] Not worried about housing near future [facility] reports the following: Within the past 12 months, you worried whether your food would run out before you got money to buy more. Never true Within the past 12 months, the food you bought just didn't last and you didn't have money to get more. Never true /roberto/ ROSIO HOWELL LPN Signed: 09/30/2024 14:32 ROSIO HOWELL [facility] Sep 30, 2024 02:30 PM PRIMARY CARE NURSE PRACTITIONER OUTPATIENT NOTE: LOCAL TITLE: NURSE PRACTITIONER OUTPATIENT NOTE STANDARD TITLE: PRIMARY CARE NURSE PRACTITIONER OUTPATIENT NOTE DATE OF NOTE: SEP 30, 2024@14:30 ENTRY DATE: OCT 06, 2024@15:09:45 AUTHOR: LORETTA HANSON EXP COSIGNER: URGENCY: STATUS: COMPLETED Chief complaint: Patient is a 49 year old . HPI: Pleasant male [place] here for interim visit. He report having another issue with TMJ, he is requesting cc, consult placed. Also have episodes of vertigo, no triggers, refer to PT. He has a painful area mid lateral right back, on exam fixed pea size area consistent with lipoma vs. cyst. There is no errythema, consult to gen surgery. He also has some inflammation around the nail of the right great toe status post nail ablation procedure right hallux. He has podiatry scheduled, in the interim i will order bactroban to suppress possible infection. Allergies: Patient has answered NKA The following VA and Non-VA meds were reconciled with patient. The patient was educated on the use of the medications including indication and side effects. Active and Recently Outpatient Medications (excluding Supplies): Active Outpatient Medications Status 1) CALCIUM 200MG (CA CITRATE-950MG) TAB TAKE THREE TABLETS BY ACTIVE MOUTH TWICE DAILY Indication: FOR CALCIUM SUPPLEMENTATION 2) CHOLECALCIF 50MCG (D3-2,000UNIT) TAB TAKE ONE TABLET BY ACTIVE MOUTH ONCE DAILY FOR VITAMIN SUPPLEMENTATION Indication: FOR VITAMIN D DEFICIENCY 3) MUPIROCIN 2% OINT APPLY THIN LAYER TOPICALLY TWICE DAILY ACTIVE Indication: FOR SKIN INFECTION 4) OMEPRAZOLE 20MG EC CAP TAKE TWO CAPSULES BY MOUTH ONCE DAILY ACTIVE (NOTE DOSE) Indication: FOR EXCESSIVE PRODUCTION OF STOMACH ACID Active Non-VA Medications Status 1) Non-VA OTHER CAP/TAB RACHANA WORKZ MUSHROOM COMPLEX BY MOUTH ACTIVE ONCE DAILY 5 Total Medications Review of Systems: Constitutional: (-)for Fevers, chills, weakness, nights sweats On examination: 98 F [36.7 C] (09/30/2024 14:28)134/84 (09/30/2024 14:28)98 (09/30/2024 14:28)16 (09/30/2024 14:28)0 (09/30/2024 14:28)BMI: 37.8234 lb [106.14 kg] (09/30/2024 14:28) is alert and oriented X3 Cardiovasc: 2plus carotids without bruits, no JVD Heart Reguler rate and rhythm NL S1S2 no S3 or murmur Respiration: Normal respiratory effort, lungs clear All diagnostics from past month were reviewed with patient. Assessment/plan: Active problems - Computerized Problem List is the source for the following: a/p as above Today I spent 40 minutes on some or all of the following: chart review, history, physical examination, treatment planning, education and counseling of the patient/family/care administrative tech, placing orders, communicating with other health care providers, completing health and wellness screenings (see below) and documentation in the electronic health record. Follow up visit in January 2025 Medication Reconciliation: Outpatient: Has the patient been taking medications as documented in the EMLR? YES: The patient has been taking medications as documented in the EMLR. Essential Medication List for Review used to complete this medication reconciliation. INCLUDED IN THIS LIST: Alphabetical list of active outpatient prescriptions dispensed from this [facility] (local) and dispensed from another [place] or [facility] facility (remote) as well as [...] or non-VA provider. /roberto/ Loretta Hanson DNP, WOOD SCALER-BC, CNL Primary Care Nurse Practitioner Signed: 10/06/2024 15:16 LORETTA HANSON [facility]
--- OUTSIDE RECORDS SUMMARY | 2024-10-20 10:10 | XMS_ITS | Encounter Summary ---
Author Name [facility] [place] Organization [facility] [place] Address [address] [place] [address] Care Team Providers Care Correctional Officer Sergeant Name Role Phone LORETTA HANSON Primary Care [...] [place] Aug 05, 2021 01 [phone] [id number] ELVIN WALSH PATIENT Selected Encounter This section includes the information on record at [place] for the Encounter. Date/Time Encounter Type Encounter Description Reason Provider Source Jan 21, 2024 11:30 AM OFFICE O/P EST LOW 20 MIN PRIMARY CARE/MEDICINE ICD-10-CM K11.21 Acute sialoadenitis GANGA DAVID Zahra Encounter Template Text not used by [place] Assessments - Encounter Diagnoses This section includes the primary and secondary diagnoses documented for the Encounter. Date/Time Primary/Secondary Diagnosis Diagnosis Name Provider Source Jan 21, 2024 12:32 PM PRIMARY Acute sialoadenitis GANGA DAVID [place] [facility] [place] [facility] Plan of Treatment: Future Appointments (+ 6 months) and Future Tests (+/- 45 days) The Plan of Treatment section includes future care activities for the [facility] This section includes future appointments and future orders which are active, pending or scheduled. Future Appointments This section includes appointments that were scheduled to occur 6 months from the date of the Encounter, up to a maximum of 20 appointments. The data comes from all [place] treatment facilities. Appointment Date/Time Appointment Type Appointme nt Facility Name Apr 24, 2024 02:00 PM AMBULATORY - MEDICINE [place] [facility] [place] [facility] Apr 29, 2024 01:00 PM AMBULATORY - MEDICINE [place] [facility] [place] [facility] Apr 29, 2024 02:00 PM AMBULATORY - MEDICINE [place] [facility] [place] [facility] May 13, 2024 09:30 AM AMBULATORY - MEDICINE [place] [facility] [place] [facility] May 21, 2024 11:00 AM AMBULATORY - MEDICINE [place] [facility] [place] [facility] May 22, 2024 01:30 PM AMBULATORY - MEDICINE [place] [facility] [place] [facility] May 29, 2024 02:00 PM AMBULATORY - MEDICINE [place] [place] [facility] Jun 05, 2024 10:00 AM AMBULATORY - MEDICINE [place] [place] [facility] Jun 05, 2024 02:00 PM AMBULATORY - MEDICINE [place] [facility] [place] [facility] Jun 05, 2024 02:45 PM AMBULATORY - NONE [place] [facility] [facility] Jun 17, 2024 08:00 AM AMBULATORY - PSYCHIATRY [place] [facility] [facility] Jun 18, 2024 08:30 AM AMBULATORY - MEDICINE [place] [facility] [place] [facility] Jun 18, 2024 11:00 AM AMBULATORY - PSYCHIATRY [place] [facility] [place] [facility] Jun 26, 2024 09:00 AM AMBULATORY - MEDICINE [place] [facility] [place] [place] [facility] Jul 13, 2024 09:00 AM AMBULATORY - MEDICINE [place] [facility] [place] [facility] Active, Pending, and Scheduled Orders This section includes a listing of several types of active, pending, and scheduled orders, including clinic medications orders, diagnostic test orders, procedure orders and consult orders; where the start date of the order is 45 days before the date of the Encounter or 45 days after the date of theEncounter. The data comes from all [place] treatment facilities. Test Date/Time Test Type Test Details Facility Name Jan 21, 2024 12:00 AM Laboratory - Chemi stry Order OCCULT BLOOD FIT X1 SCREEN(IN-HOUSE) STOOL FECES SP [facility] Lab Results: +/- 30 days of the encounter This section includes the Chemistry and Hematology Lab Results on record with [place] for the patient. Radiology Reports and Pathology Reports are provided separately, in subsequent sections. Lab Results This section contains the Chemistry/Hematology Results that were resulted 30 days before or 30 daysafter the date of the Encounter. Date/Time Source Result Type Result - Unit Interpretation Reference Range Comment Feb 12, 2024 08:41 AM [facility] CBC Specimen Type: BLOOD No comment entered. Ordering Provider: MAR HANSON Report Released Date/Time: Feb 10, 2024 03:34 PM Reporting Lab: [address] [address] Performing Lab: [address] [address] WBC 7.42 10*3/uL 4.50-11.00 RBC 5.66 10*6/uL 4.23-5.66 HGB 16.0 g/dL 12.8-17 HCT 46.9 39.2-50.4 MCV 82.9 fL 82-99 MCHC 34.1 g/dL 30.8-35.1 PLT 223 10*3/uL 140-360 RDW-CV 12.7 12.0-16.0 MCH 28.3 pg 26.2-32.6 Feb 12, 2024 08:41 AM [facility] LIPID PANEL, NON FASTING Specimen Type: SERUM No comment entered. Ordering Provider: MAR HANSON Report Released Date/Time: Feb 10, 2024 03:34 PM Reporting Lab: [address] [address] Performing Lab: [facility] [address] [facility] [address] CHOLESTEROL 209 mg/dL H TRIGLYCERIDE 121 mg/dL 0-150 LDL calculated 151 mg/dL H 0-129 CHOL/HDL 6.1 HDL CHOLESTEROL 34 mg/dL L 40-60 Feb 12, 2024 08:41 AM [facility] BASIC METABOLIC PANEL (non-fasting) Specimen Type: SERUM No comment entered. Ordering Provider: MAR HANSON Report Released Date/Time: Feb 10, 2024 03:34 PM Reporting Lab: [address] [address] Performing Lab: [address] [address] UREA NITROGEN 19 mg/dL 7-25 GLUCOSE 92 mg/dL 65-100 SODIUM 139 mmol/L 135-145 POTASSIUM 4.1 mmol/L 3.5-5.0 CHLORIDE 106 mmol/L 100-110 CO2 22 meq/L 20-30 CREATININE, Serum 0.99 mg/dL 0.50-1.40 eGFR(CKD-EPI 2020) >90 mL/min >60 Feb 12, 2024 08:41 AM [facility] LIVER FUNCTION Specimen Type: SERUM No comment entered. Ordering Provider: MAR HANSON Report Released Date/Time: Feb 10, 2024 03:34 PM Reporting Lab: [address] [address] Performing Lab: [address] [address] PROTEIN,TOTAL 6.8 g/dL 6.0-8.3 ALBUMIN 4.0 g/dL [...] 10:50 AM 98 102 126/80 16 3 [facility] Social History: Smoking Status (Most current) and Tobacco Use (All prior to encounter date) This section includes the most current, and the historical, smoking and tobacco- related health factors from the [place] facility where the Encounter took place. Current Smoking Status This section includes the most current smoking, or tobacco-related health factor, from the [place] facility where the Encounter took place. Date/Time Current Smoking Status Comment Facil ity Aug 26, 2023 10:00 AM [place]-TOBACCO FORMER USER [facility] Tobacco Use History This section includes a history of the smoking, or tobacco-related health factors, that were collected on or before the date of the Encounter. The data comes from the [place] facility where the Encounter took place. Date/Time Smoking Status/Tobacco Use Comment F acility Aug 26, 2023 10:00 AM LA-TOBACCO QUIT 15 YRS OR MORE [facility] Apr 11, 2022 11:00 AM [place]-TOBACCO FORMER USER [facility] Apr 11, 2022 11:00 AM [place]-TOBACCO QUIT 15 YRS OR MORE [facility] Advance Directives: All historical and current Section Date Range: From patient's date of to the date document was created. This section includes ALL of a patient's completed or amended [place] Advance and Rescinded Directives. The entries below indicate that a directive exists for the patient, but an actual copy is not included with this document. The data comes from all [place] facilities. Date Advance Directives Provider Source May 16, 2011 ADVANCE DIRECTIVE DISCUSSION TON SARAVIA Sep 27, 2005 ADVANCE DIRECTIVE SHARLENE SIDHU [facility] Sep 10, 2005 ADVANCE DIRECTIVE DISCUSSION FRANCE RODRIGEZ [facility] Aug 14, 2004 ADVANCE DIRECTIVE [...] the Encounter. The data comes from all [place] treatment facilities. Date/Time Radiology Report Provider Source Jan 21, 2024 11:02 AM MANDIBLE LESS THAN 4 VIEWS: ELVIN REYNA [id number] -1975 M Exm Date: JAN 21, 2024@11:02 Req Phys: GANGA DAVID Loc: CWM/NO/SICK CALL PA (Req'g Loc Img Loc: [facility]ING 1 Service: Unknown [place] [facility] , (Case [id number] COMPLETE) MANDIBLE LESS THAN 4 VIEWS (RAD Detailed) CPT:91983 Reason for Study: SWELLING AND PAIN Clinical History: R/O MASS Report Status: Verified Date Reported: JAN 21, 2024 Date Verified: JAN 21, 2024 Delivery Motorcycle Driver E-Sig: Report: PROCEDURE: Stat mandible 3 images [...] Recommend CT/MRI. READING PHYSICIAN: Maged Pastor M.D. -[id number] 01/21/2024 12:15 EDT [facility] National Teleradiology Program [phone] (For Medical Practitioner Use Only) Attention Patients / Veterans: If you have questions or concerns about these test results, please contact your ordering provider or primary care team. Primary Diagnostic Code: SIGNIFICANT ABNORMALITY, ATTN NEEDED Primary Interpreting Staff: RADIOLOGY,OUTSIDE SERVICE, Staff Physician / RADIOLOGY,OUTSIDE SERVICE [place] [facility] [place] [facility] Encounter Notes: All associated encounter notes This section contains the clinical notes associated to the Encounter. Date/Time Encounter Note(s) Provider Source Jan 21, 2024 12:11 PM PHYSICIAN COCOA BUTTER FILTER OPERATOR NOTE: LOCAL TITLE: MARYLU NOTE STANDARD TITLE: PHYSICIAN COCOA BUTTER FILTER OPERATOR NOTE DATE OF NOTE: JAN 21, 2024@12:11 [...] Gastro-Esophageal Reflux Dis 04/11/2022 LORETTA HANSON Anxiety ([facility] [id number]) F41.9 04/11/2022 LORETTA HANSON Hyperlipidemia ([facility] [id number]) E78.5 04/11/2022 LORETTA HANSON Fatty liver K76.0 [...] CT/MRI. MDM: No palpable mass on exam. Bo[place] is obese with thickened neck. We will treat for parotitis. will use Augmentin 875 mg 1 p.o. twice daily x10 days. We will also use sour candies/lemon to help improve salivation. If persists a CT/MRI of the area would be prudent. If resolves, no further work-up deemed necessary at this time. ASSESSMENT/PLAN Acute Sialoadenitis as above able to verbalize understanding of plan of care and agrees. >> MEDICATIONS Reviewed and reconciled with [place] /es/ GANGA GIVENS MS,PA-C PHYSICIAN COCOA BUTTER FILTER OPERATOR Signed: 01/21/2024 12:32 Receipt Acknowledged By: 01/21/2024 13:13 /es/ Loretta Hanson DNP, COAL SCREENER-BC, CNL Primary Care Nurse Practitioner 01/21/2024 13:58 /es/ Jacey ESTRADA RN CNL Primary Care RN [facility] DAVID [facility]
--- OUTSIDE RECORDS SUMMARY | 2024-10-20 10:11 | XMS_ITS | Encounter Summary ---
Author Name [facility] [place] Organization [facility] [place] Address [address] [facility], [place] [address] Care Team Providers Care Nailer Operator Name Role Phone LORETTA HANSON Primary [...] [place] Aug 05, 2021 01 [phone] ELVIN WALSH PATIENT Selected Encounter This section includes the information on record at [place] for the Encounter. Date/Time Encounter Type Encounter Description Reason Pro vider Source Oct 02, 2024 01:42 PM Outpatient Encounter PRIMARY CARE/MEDICINE IHE Encounter Template Text not used by [place] Plan of Treatment: Future Appointments (+ 6 [...] - MEDICINE [place] [facility] [place] [facility] Oct 13, 2024 02:15 PM AMBULATORY - REHAB MEDICIN E [place] [facility] [facility] Oct 15, 2024 10:00 AM AMBULATORY - MEDICINE [place] [facility] [place] [facility] Oct 16, 2024 11:30 AM AMBULATORY - REHAB MEDICIN E [place] [facility] [facility] Oct 19, 2024 04:00 PM AMBULATORY - REHAB MEDICIN E [place] [facility] [facility] Oct 20, 2024 09:30 AM AMBULATORY - MEDICINE [place] [facility] [place] [facility] Oct 27, 2024 02:30 PM AMBULATORY - SURGERY [place] Dec 01, 2024 03:00 PM AMBULATORY - MEDICINE [place] [facility] [place] [facility] Jan 04, 2025 10:30 AM AMBULATORY - MEDICINE [place] [facility] [place] [facility] Jan 19, 2025 11:00 AM AMBULATORY - MEDICINE [place] [facility] Active, Pending, and Scheduled Orders This section includes a listing of several types of active, pending, and scheduled orders, including clinic medications orders, diagnostic test orders, procedure orders and consult orders; where the start date of the order is 45 days before the date of the Encounter or 45 days after the date of theEncounter. The data comes from all [facility]. Test Date/Time Test Type Test Details Facility Name Oct 06, 2024 03:06 PM Consult Order COMMUNITY CARE-GEN SURGERY Cons [place] [employer] [facility] [place] [facility] [place] [facility] Oct 06, 2024 03:09 PM Consult Order COMMUNITY CARE-PHYSICAL THERAPY Cons [place] [facility] [place] [facility] [facility] Oct 12, 2024 06:55 AM Consult Order PODIATRIC SURGERY/ULCER CONSULT IF NEWT Cons [place] [facility] [place] [facility] [facility] Oct 16, 2024 12:00 AM Laboratory - Chemi stry Order CALCIUM, 24HR PANEL 24 HR URINE SP [facility] Results: +/- 30 [...] Range Comment Sep 30, 2024 03:15 PM [facility] VITAMIN B12 Specimen Type: SERUM No comment entered. Ordering Provider: MAR HANSON Report Released Date/Time: Sep 30, 2024 02:42 PM Reporting Lab: [address] [address] Performing Lab: [address] [address] VITAMIN B12 332 pg/mL 200-900 Sep 30, 2024 03:15 PM [facility] MAGNESIUM Specimen Type: SERUM No comment entered. Ordering Provider: MAR HANSON Report Released Date/Time: Sep 30, 2024 02:41 PM Reporting Lab: [address] [address] Performing Lab: [address] [address] MAGNESIUM 1.7 mg/dL 1.6-2.6 Sep 03, 2024 04:06 PM [facility] VITAMIN D (25-OH) Specimen Type: SERUM No comment entered. Ordering Provider: MAR HANSON Report Released Date/Time: Jul 23, 2024 12:38 PM Reporting Lab: [address] [address] Performing Lab: [address] [address] VITAMIN D (25-OH) 35 ng/mL 20-50 Sep 03, 2024 04:06 PM [facility] TSH Specimen Type: SERUM No comment entered. Ordering Provider: MAR HANSON Report Released Date/Time: Jul 23, 2024 12:38 PM Reporting [facility] [address] [facility] [address] Performing [facility]: [facility] [address] [address] TSH 1.59 u[IU]/mL 0.35-5.00 Sep 03, 2024 04:06 PM [facility] PTH INTACT Specimen Type: SERUM No comment entered. Ordering Provider: KAVIN STORY Report Released Date/Time: Aug 30, 2024 05:36 PM Reporting [facility] [address] [address] Performing Lab: [facility] [address] PTH INTACT 96.0 pg/mL H 8.7-77.1 Sep 03, 2024 04:06 PM [facility] CALCIUM Specimen Type: SERUM No comment entered. Ordering Provider: KAVIN STORY Report Released Date/Time: Aug 30, 2024 05:36 PM Reporting [facility] [address] [address] Performing Lab: [facility] [address] CALCIUM 9.3 mg/dL 8.5-10.2 Sep 03, 2024 04:06 PM [facility] BASIC METABOLIC PANEL (non-fasting) Specimen Type: SERUM No comment entered. Ordering Provider: KAVIN STORY Report Released Date/Time: Aug 30, 2024 05:36 PM Reporting [facility] [address] [address] Performing Lab: [facility] [address] UREA NITROGEN 18 mg/dL 7-25 GLUCOSE 94 [...] Facil ity Aug 03, 2024 01:00 PM [place]-TOBACCO NEVER U SED CIGARETTES [facility] Tobacco Use History This section includes a history of the smoking, or tobacco-related health factors, that were collected on or before the date of the Encounter. The data comes from the [place] facility where the Encounter took place. Date/Time Smoking Status/Tobacco Use Comment F acility Aug 03, 2024 01:00 PM VA-TOBACCO NEVER U SED OTHER TYPE [place] [facility] [facility] Aug 26, 2023 10:00 AM VA-TOBACCO FORMER USER [place] [facility] [place] [facility] Aug 26, 2023 10:00 AM SD-TOBACCO QUIT 15 YRS OR MORE [place] [facility] [place] [facility] Apr 11, 2022 11:00 AM VA-TOBACCO FORMER USER [place] [facility] [place] [facility] Apr 11, 2022 11:00 AM [place]-TOBACCO QUIT 15 YRS OR MORE [facility] Advance Directives: All historical and [...] Sep 27, 2005 ADVANCE DIRECTIVE SHARLENE SIDHU [facility] Sep 10, 2005 ADVANCE DIRECTIVE DISCUSSION FRANCE RODRIGEZ [facility] Aug 14, 2004 ADVANCE DIRECTIVE DISCUSSION CECERE,REGULO [...] 3 OR MORE VIEWS (RIGHT): ELVIN REYNA [id number] -1975 M Exm Date: SEP 23, 2024@11:21 Req Phys: GANGA DAVID Loc: ZZN PACT FLOAT PA (Req'g Loc Img Loc: [facility] 1 Service: [place] [address] (Case [id number] COMPLETE) FOOT 3 OR MORE VIEWS (RIGHT) (RAD Detailed) CPT:82074 Proc Modifiers : RIGHT CPT Modifiers : RT RIGHT SIDE Reason for Study: pre-podiatric evaluation Clinical History: Report Status: Verified Date Reported: SEP 23, 2024 Date Verified: SEP 23, 2024 National [employer]el[employer] Analyst E-Sig:/ES/KRISTYN BERKOWITZ JR Report: Study: Weight-bearing AP, [...] Primary Interpreting Staff: KRISTYN BERKOWITZ JR, Radiologist (National [employer] Analyst) /KRISTYN VASQUES JR [facility] Sep 14, 2024 10:33 AM KIDNEY AND BLADDER ULTRASOUND: ELVIN REYNA [id number] -1975 M Exm Date: SEP 14, 2024@10:33 Req Phys: LORETTA HANSON [place] Loc: [facility] PACT 7 INTERVENTION ANALYST (Req'g Loc) Img Loc: ULTRASOUND Service: Unknown [facility] [place] [address] (Case 41 COMPLETE) ULTRASOUND KIDNEYS (US Detailed) CPT:68841 Reason for Study: follow up (Case 42 COMPLETE) ULTRASOUND URINARY BLADDER (US Detailed) CPT:97326 Clinical History: Some ultrasound tests require a prep. recent stone left ureter, stent removed on 08/03, seeking this to be done six weeks from now. Report Status: Verified Date Reported: SEP 14, 2024 Date Verified: SEP 14, 2024 National [employer]el[employer] Analyst E-Sig:/ES/KRISTYN BERKOWITZ JR Report: Study: Genitourinary ultrasound. [...] Primary Interpreting Staff: KRISTYN BERKOWITZ JR, Radiologist ([employer] Analyst) /KRISTYN VASQUES JR [facility] Encounter Notes: All associated encounter notes This section contains the clinical notes associated to the Encounter. Date/Time Encounter Note(s) Provider Source Oct 02, 2024 01:42 PM ADMINISTRATIVE NOTE: LOCAL TITLE: ADMINISTRATIVE NOTE STANDARD TITLE: ADMINISTRATIVE NOTE DATE OF NOTE: OCT 02, 2024@13:42 ENTRY DATE: OCT 02, 2024@13:42:11 AUTHOR: CONNON,TANGELA JEA EXP COSIGNER: URGENCY: STATUS: COMPLETED ADMINISTRATIVE NOTE Has ADDENDA called directly into [facility] Primary Care regarding a Consult/Referral for Physical Therapy for his Vertigo. Skull Grinder is not seeing anything on file. informs that he was seen in the office this past Saturday09/30/24. Please review and advise. Lincoln can be reached at confirmed phone number in system. /roberto/ TANGELA CENTENO Signed: 10/02/2024 13:43 Receipt Acknowledged By: 10/02/2024 13:45 /roberto/ Jacey Moya MSN RN CNL Primary Care RN for RAND VERA 10/02/2024 13:45 /roberto/ Jacey ESTRADA RN CNL Primary Care RN 10/02/2024 ADDENDUM STATUS: COMPLETED Alert to PCP regarding above /roberto/ Jacey ESTRADA RN CNL Primary Care RN Signed: 10/02/2024 13:45 TANGELA GIRON [facility]
--- OUTSIDE RECORDS SUMMARY | 2024-10-20 10:11 | XMS_ITS | Encounter Summary ---
Author Organization [facility] Address [address] [place] [address] Care Team Providers Care Pipe Manufacture Supervisor Name Role Phone Unavailable Primary Care Provider Unavailabl e Encounter Details Date Type Department Care Team (Late st Contact Info) Description 08/04/2024 Lab Requisition [facility] - Main Lab [address] [facility] [place] [id number] Anna Sterling, MARYLU [address] [facility] [address] [place] [address] Calculus of ureter Social History Tobacco Use Types Packs/Day Years Used Date Smoking Tobacco: Never Assessed Sex and Gender Information Value Date Recorded Sex Assigned at Not on file Legal Sex Male 11:01 AM EDT Gender Identity Not on file Sexual Orientation Not on file documented as of this encounter Plan of Treatment Not on file documented as of this encounter Procedures Procedure Name Priority Date/Time Associated Diagnosis Comments BACTERIAL IDENTIFICATION AND SUSCEPTIBILITY, AEROBIC Routine 08/03/2024 12:00 AM EST Calculus of ureter documented in this encounter Results * (ABNORMAL) Bacterial identification and susceptibility, aerobic (08/03/2024 12:00 AM EST) Culture, Bacterial ID and Sensitivity Escherichia coli(A) EVIN 08/05/2024 9:13 AM EST [facility] Comment: This is an edited result. Previous organism was Gram negative bacilli on 08/04/2024 at 1102 EST. Culture, Bacterial ID and Sensitivity Klebsiella aerogenes(A) EVIN 08/05/2024 9:13 AM EST [facility] Comment: The organism value for this result has been updated. These results have been appended to the previously preliminary verified report. This is an edited result. Previous organism was Gram negative bacilli on 08/05/2024 at 0753 EST. Culture, Bacterial ID and Sensitivity Enterococcus faecalis(A) EVIN 08/05/2024 9:13 AM EST [facility] Comment: The organism value for this [...] Enterococcus faecalis Nitrofurantoin EVIN <=16 ug/ml: Susceptible us Anna [facility] MICROBIOLOGY - GENERAL ORDER CHANTELLE Final Result [facility] ([facility] [address] [place] [address], [place] [phone] documented in this encounter Visit Diagnoses Diagnosis Calculus of ureter documented in this encounter
--- OUTSIDE RECORDS SUMMARY | 2024-10-20 10:11 | XMS_ITS ---
Author Name Department [place] Organization [place] Address [address] [place] [address] Care Team Providers Care Equalizer Operator Name Role Phone LORETTA HANSON Primary [...] Policy Gonzalez's Name Patient's Relationship to Policy Gonzalze [facility] MEDICAID [facility] Aug 05, 2021 01 [id number] ELVIN WALSH PATIENT Selected Encounter This section includes the information on record at [place] for the Encounter. Date/Time Encounter Type Encounter Description Reason Provider Source December 05, 2023 08:00 AM OFFICE O/P EST MOD 30 MIN PODIATRY ICD-10-CM M77.41 Metatarsalgia , right foot SALAS KONG Zahra Encounter Template Text not used by [place] Assessments - Encounter Diagnoses This section includes the primary and secondary diagnoses documented for the Encounter. Date/Time Primary/Secondary Diagnosis Diagnosis Name Provider Source December 05, 2023 04:01 PM PRIMARY Metatarsalgia, right foot SALAS KONG [place] [facility] [place] [facility] December 05, 2023 04:01 PM SECONDARY Congenital pes planus, unspecified foot SALAS KONG [place] [facility] [place] [facility] December 05, 2023 04:01 PM SECONDARY Ingrowing nail SALAS KONG [place] [facility] [place] [facility] Plan of Treatment: Future Appointments (+ 6 months) and Future Tests (+/- 45 days) The Plan of Treatment section includes future care activities for the patient from all [place] [facility]. This section includes future appointments and future orders which are active, pending or scheduled. Future Appointments This section includes appointments that were scheduled to occur 6 months from the date of the Encounter, up to a maximum of 20 appointments. The data comes from all [place] treatment facilities. Appointment Date/Time Appointment Type Appointme nt Facility Name December 10, 2023 03:00 PM AMBULATORY - REHAB MEDICIN E [facility] [place] [facility] December 17, 2023 03:00 PM AMBULATORY - REHAB MEDICIN E [facility] [place] [facility] December 24, 2023 03:00 PM AMBULATORY - REHAB MEDICIN E [facility] [place] [facility] January 01, 2024 11:00 AM AMBULATORY - MEDICINE [facility] [place] [facility] Jan 07, 2024 09:30 AM AMBULATORY - REHAB MEDICIN E [facility] [place] [facility] Jan 08, 2024 09:00 AM AMBULATORY - PSYCHIATRY [facility] [place] [facility] Jan 21, 2024 10:30 AM AMBULATORY - MEDICINE [facility] [place] [facility] Jan 21, 2024 11:30 AM AMBULATORY - MEDICINE [facility] [place] [facility] Apr 24, 2024 02:00 PM AMBULATORY - MEDICINE [facility] [place] [facility] Apr 29, 2024 01:00 PM AMBULATORY - MEDICINE [facility] [place] [facility] Apr 29, 2024 02:00 PM AMBULATORY - MEDICINE [facility] [place] [facility] May 13, 2024 09:30 AM AMBULATORY - MEDICINE [facility] [place] [facility] May 21, 2024 11:00 AM AMBULATORY - MEDICINE [facility] [place] [facility] May 22, 2024 01:30 PM AMBULATORY - [facility] May 29, 2024 02:00 PM AMBULATORY - MEDICINE [facility] Jun 05, 2024 10:00 AM AMBULATORY - MEDICINE [facility] Jun 05, 2024 02:00 PM AMBULATORY - MEDICINE [facility] N[facility]L [facility] Jun 05, 2024 02:45 PM AMBULATORY - NONE [facility] Lab Results: +/- 30 days of the encounter This section includes the Chemistry and Hematology Lab Results on record with [place] for the patient. Radiology Reports and Pathology Reports are provided separately, in subsequent sections. Lab Results This section contains the Chemistry/Hematology Results that were resulted 30 days before or 30 daysafter the date of the Encounter. Date/Time Source Result Type Result - Unit Interpretation Reference Range Comment Nov 11, 2023 09:54 AM [facility] [id number] PGx Specimen Type: BLOOD Comment: SPECIMEN SHIPPED ON MANIFEST [id number] Ordering Provider: MAGGIE GALVAN Report Released Date/Time: Sep 13, 2023 12:46 PM Reporting Lab: [address] [address] Performing Lab: [facility] Social History: Smoking Status (Most current) and Tobacco Use (All prior to encounter date) This section includes the most current, and the historical, smoking and tobacco- related health factors from the [place] facility where the Encounter took place. Current Smoking Status This section includes the most current smoking, or tobacco-related health factor, from the [place] facility where the Encounter took place. Date/Time Current Smoking Status Comment Terri ity Aug 26, 2023 10:00 AM NM-TOBACCO FORMER USER [facility] Tobacco Use History This section includes a history of the smoking, or tobacco-related health factors, that were collected on or before the date of the Encounter. The data comes from the [place] facility where the Encounter took place. Date/Time Smoking Status/Tobacco Use Comment F acility Aug 26, 2023 10:00 AM NM-TOBACCO [facility]IT [facility] [place] [facility] Apr 11, 2022 11:00 AM NM-TOBACCO FORMER USER [place] [facility] Apr 11, 2022 11:00 AM NM-TOBACCO QUIT 15 YRS OR MORE [facility] Advance Directives: All historical and current Section Date Range: From patient's date of to the date document was created. This section includes ALL of a patient's completed or amended [place] Advance and Rescinded Directives. The entries below indicate that a directive exists for the patient, but an actual copy is not included with this document. The data comes from all [place] facilities. Date Advance Directives Provider Source May 16, 2011 ADVANCE DIRECTIVE DISCUSSION TON SARAVIA Sep 27, 2005 ADVANCE DIRECTIVE SHARLENE SIDHU [facility] Sep 10, 2005 ADVANCE DIRECTIVE DISCUSSION FRANCE [facility]IGEZ [facility] Aug 14, 2004 ADVANCE DIRECTIVE [...] EXP COSIGNER: URGENCY: STATUS: COMPLETED [facility] ELVIN REYNA JR [address] [place] [address], [phone] DECEMBER 24, 2023 Dear ELVIN REYNA, Your orthotics have arrived at the [facility] located at [address] [place] [id number]. Please call [phone] ext. [phone] for Nina or ext. [phone] for Selena to make an appointment to pick them up. Clinic Hours are 8:30am-3:30pm. Walk-ins may not be accommodated. We hope to see you soon. Podiatry Staff [address] [address] NINA MALDONADO [facility] December 05, 2023 08:01 AM PODIATRY NOTE: LOCAL TITLE: PODIATRY NOTE STANDARD TITLE: PODIATRY NOTE DATE OF NOTE: DECEMBER 05, 2023@08:01 ENTRY DATE: DECEMBER 05, 2023@08:01:23 AUTHOR: SALAS KONG EXP COSIGNER: URGENCY: STATUS: COMPLETED Podiatry [facility] Follow up Provider: Salas Kong Date: DECEMBER 05, [address] [address] Jul 48 MALE [id number] PATIENT PHONE - Primary Care: LORETTA HANSON [...] had received from orthotics and prosthetics of [place] are uncomfortable to high in the arch [...] 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 Service connections:Service Connected Disabilities with % Eligibility: [facility]IF[facility] Medical problems active: Active Problem Gallbladder polyp K82.4 03/26/2023 LORETTA HANSON Pain in right arm M79.601 02/21/2023 LORETTA HANSON Poon's esophagus K22.70 09/18/2022 LORETTA HANSON Attention deficit hyperactivity dis 06/25/2022 ELISHA RAHMAN Sleep apnea G47.33 04/12/2022 LORETTA HANSON Overweight E66.3 04/12/2022 LORETTA HANSON GERD - Gastro-Esophageal Reflux Dis 04/11/2022 LORETTA HANSON Anxiety ([facility] [id number]) F41.9 04/11/2022 LORETTA HANSON Hyperlipidemia ([facility] [id number]) E78.5 04/11/2022 LORETTA HANSON Fatty liver K76.0 [...] complete. Please check V. FACILITY ALLERGY/ADR -------- [facility] NO KNOWN ALLERGIES [facility] NO KNOWN ALLERGIES [facility] NO KNOWN ALLERGIES [facility] [place] [facility] No Known Allergies [facility] Lab data: CBC TREND Collection [...] REPORTS SUMMARY pg. 1 ELVIN REYNA JR [id number] : 1975 II - Imaging Impression (max 1 occurrence) Date Procedure CPT Status Case # 03/14/2023 OUTSIDE MRI JOINT UPPER EXT [id number] [employer] 324 == REVIEW OF SYSTEMS: Unremarkable except for [...] as results of the physical exam and farm service consultant opinions and recommendations as sought. Alternatives [...] -The on this visit was given information [employer] service and encouraged to enroll if not already having done so. /roberto/ SALAS KONG DPM PODIATRY ATTENDING Signed: 12/05/2023 16:01 SALAS KONG [place] [facility]
--- OUTSIDE RECORDS SUMMARY | 2024-10-20 10:11 | XMS_ITS ---
Author Name [facility] [place] Organization [place] Address [address] [place] [address] Care Team Providers Care Change Attendant Name Role Phone LORETTA HANSON Primary [...] [place] [facility] Aug 05, 2021 01 [id number] ELVIN WALSH PATIENT Selected Encounter This section includes the information on record at [place] for the Encounter. Date/Time Encounter Type Encounter Description Reason Provider Source Jun 05, 2024 10:00 AM POSTOP FOLLOW-UP VISIT GENERAL SURGERY ICD-10-CM D18.01 Hemangioma of skin and subcutaneous tissue CAITIE DONG Zahra Encounter Template Text not used by [place] Assessments - Encounter Diagnoses This section includes the primary and secondary diagnoses documented for the Encounter. Date/Time Primary/Secondary Diagnosis Diagnosis Name Provider Source Jun 05, 2024 10:05 AM PRIMARY Hemangioma of skin and subcutaneous tissue CAITIE DONG [facility] [place] [facility] Plan of Treatment: Future Appointments (+ 6 months) and Future Tests (+/- 45 days) The Plan of Treatment section includes future care activities for the patient from all [place] [facility] hospital. This section includes future appointments and [...] - PSYCHIATRY [facility] [place] [facility] Jun 18, 2024 08:30 AM AMBULATORY - MEDICINE [facility] [facility] Jun 18, 2024 11:00 AM AMBULATORY - PSYCHIATRY [facility] [place] [facility] Jun 26, 2024 09:00 AM AMBULATORY - MEDICINE [facility] [place] [facility] Jul 13, 2024 09:00 AM AMBULATORY - MEDICINE [facility] [place] [facility] Jul 23, 2024 11:30 AM AMBULATORY - MEDICINE [facility] [place] [facility] Aug 03, 2024 01:00 PM AMBULATORY - MEDICINE [facility] [place] [facility] Aug 06, 2024 02:30 PM AMBULATORY - MEDICINE [facility] [place] [facility] Aug 14, 2024 11:30 AM AMBULATORY - MEDICINE [facility] [place] [facility] Sep 02, 2024 01:00 PM AMBULATORY - SURGERY OMAIRAE MYLESUT [facility] Sep 02, 2024 01:00 PM AMBULATORY - MEDICINE [facility] [place] [facility] Sep 03, 2024 03:00 PM AMBULATORY - MEDICINE [facility] [place] [facility] Sep 14, 2024 10:30 AM AMBULATORY - NONE [facility] [place] [facility] Sep 28, 2024 10:30 AM AMBULATORY - MEDICINE [facility] [place] [facility] Sep 30, 2024 02:30 PM AMBULATORY - MEDICINE [facility] [place] [facility] Oct 05, 2024 03:00 PM AMBULATORY - MEDICINE [facility] [place] [facility] Oct 13, 2024 02:15 PM [facility] Oct 15, 2024 10:00 AM [facility] Oct 16, 2024 11:30 AM AMBULAT[facility] Oct 19, 2024 04:00 PM AMBULATORY - REHAB MEDICIN E [facility] Active, Pending, and Scheduled Orders [...] PM Consult Order DERMATOLOG Y/NHM (OUTPT) Cons Shrimp Peeling Machine Operator's Choice [facility] Jun 18, 2024 12:00 AM Laboratory - Chemi stry Order DRUGS OF ABUSE URINE (DRUG) SP [facility] Lab Results: +/- [...] Range Comment Jun 05, 2024 02:23 PM [facility] CT/GC DNA PANEL(IN-HOUSE) Specimen Type: URINE Comment: Test performed on the [employer] Genexpert. A negative test results does not exclude the possibility of infection because results may be affected by improper specimen collection, concurrent antibiotic therapy, or the number of organisms in the specimen which may be below the sensitivity of the test. Ordering Provider: MAR HANSON Report Released Date/Time: Jun 05, 2024 02:02 PM Reporting Lab: [address] [address] Performing Lab: [address] [address] GC PCR NOT DETECTED Not Detected CT PCR NOT DETECTED Not Detected Jun 05, 2024 02:23 PM [facility] MICROSCOPIC AUTOMATED, URINE Specimen Type: URINE Comment: If Glucose = >500 and Ketones are positive, please alert the Physician. Ordering Provider: MAR HANSON Report Released Date/Time: Jun 05, 2024 02:02 PM Reporting Lab: [address] [address] Performing Lab: [address] [address] UA WBC 0-5 /[HPF] 0-5 UA MUCUS FEW /[LPF] Trace UA RBC 11-20 /[HPF] H 0-3 Jun 05, 2024 02:23 PM [facility] URINALYSIS CLEAN CATCH Specimen Type: URINE Comment: If Glucose = >500 and Ketones are positive, please alert the Physician. Ordering Provider: MAR HANSON Report Released Date/Time: Jun 05, 2024 02:02 PM Reporting Lab: [address] [address] Performing Lab: [address] [address] UA COLOR Light-Yellow Yellow UA APPEARANCE Clear [...] 131/82 20 96 2 66 244 39 [facility] Social History: Smoking Status [...] Facil ity Aug 26, 2023 10:00 AM [place]-TOBACCO QUIT 15 YRS OR MORE [facility] Tobacco Use History This section includes a history of the smoking, or tobacco-related health factors, that were collected on or before the date of the Encounter. The data comes from the [place] facility where the Encounter took place. Date/Time Smoking Status/Tobacco Use Comment F acility Aug 26, 2023 10:00 AM NC-TOBACCO QUIT 15 YRS OR MORE [facility] Apr 11, 2022 11:00 AM NC-TOBACCO FORMER USER [facility] Apr 11, 2022 11:00 AM NC-TOBACCO QUIT 15 YRS OR MORE [facility] Advance Directives: All historical and current Section Date Range: From patient's date of to the date document was created. This section includes ALL of a patient's completed or amended [place] Advance and Rescinded Directives. The entries below indicate that a directive exists for the patient, but an actual copy is not included with this document. The data comes from all [facility]. Date Advance Directives Provider Source May 16, 2011 ADVANCE DIRECTIVE DISCUSSION TON SARAVIA Sep 27, 2005 ADVANCE DIRECTIVE SHARLENE SIDHU [facility] Sep 10, 2005 ADVANCE DIRECTIVE DISCUSSION [facility] Aug 14, 2004 ADVANCE DIRECTIVE [...] ABDOMEN AND PELVIS WITHOUT CONT.: ELVIN REYNA [id number] -1975 M Exm Date: JUN 05, 2024@14:27 Req Phys: LORETTA HANSON Loc: CWM/NO/PACT 7 (Req'g Loc) Img Loc: NHM/CT Service: Unknown [place] [facility] [place] [id number] (Case 335 COMPLETE) CT ABDOMEN AND PELVIS WITHOUT CON(CT Detailed) CPT:19638 Reason for Study: lower abdominal pain Clinical History: h/o kidney stone, having worsening pain Report Status: Verified Date Reported: JUN 07, 2024 Date Verified: JUN 07, 2024 [employer] Inspector E-Sig: Report: CT ABDOMEN AND PELVIS WITHOUT [...] made. The result was communicated to Lazarusmariza Anahi on 06/07/2024 at 6:41 PST with read-back verification. READING PHYSICIAN: Rashida Hawk MD -[id number] 06/07/2024 6:44 PST [facility] National Teleradiology Program [phone] (For Medical Practitioner Use Only) Attention Patients / Veterans: If you have questions or concerns about these test results, please contact your ordering provider or primary care team. Primary Diagnostic Code: CRITICAL ABNORMALITY Primary Interpreting Staff: RADIOLOGY,OUTSIDE SERVICE, Staff Physician / RADIOLOGY,OUTSIDE SERVICE [facility] Pathology Reports: +/- 30 days [...] 02:23 PM LR MICROBIOLOGY REPORT: Reporting Lab: [facility] [CLIA# [id number]] [address] [place] [id number] Accession [UID]: [id number] [[id number]] Received: Jun 05, 2024@14:23 Collection sample: URINE CLEAN CATCH Collection date: Jun 05, 2024 14:23 Site/Specimen: URINE Provider: LORETTA HANSON Test(s) ordered: URINE CULTURE(MWROX).......... completed: Jun 08, 2024 09:02 * BACTERIOLOGY FINAL REPORT => Jun 08, 2024 09:02 TECH CODE: [id number] Bacteriology Remark(s): NO GROWTH IN 24 HOURS, FINAL REPORT TO FOLLOW. FINAL AEROBIC REPORT: NO GROWTH =--=--=--=--=--=--=--=--=--= --=--=--=--=--=--=--=--=--=- -=--=--=--=--=--=--=-- Performing Laboratory: Bacteriology Report Performed By: [facility] [CLIA# [id number]] [address] [place] [address] [facility] ESPINO[facility] WSN [facility] Jun 02, 2024 11:29 AM LR SURGICAL PATHOLOGY REPORT: LOCAL TITLE: LR SURGICAL PATHOLOGY REPORT STANDARD TITLE: PATHOLOGY DIAGNOSTIC STUDY REPORT DATE OF NOTE: JUN 02, 2024@11:29:44 ENTRY DATE: JUN 02, 2024@11:29:44 AUTHOR: MAGDALENA STOCKTON MD EXP COSIGNER: URGENCY: STATUS: COMPLETED $APHDR Reporting Lab: [facility] [CLIA# [id number]] [address] [place] [address] - - - - - - - [...] - - - PATHOLOGY REPORT Accession No. [facility] 24 533 - - - - [...] - - - PATHOLOGY REPORT Accession No. [facility] 24 533 - - - - - - - - - - - - - - - - - - - - - - - - - - - - - - - - - - - - - - - - Gross description: [facility] 01 [id number];;1;Melinda REYNA This is a [facility] case number [facility] [id number]. Received in formalin labeled [...] lower back: Hemangioma, completely excised. CPT code 53159 /roberto/ MAGDALENA STOCKTON MD Board Certified Dermatopathologist Signed Jun 02, 2024@11:29 Performing Laboratory: Surgical Pathology Report Performed By: [facility] [CLIA# [id number]] [address] [place] [address] $FTR - - - - - - [...] - ELVIN REYNA JR STANDARD FORM 515 ID:[id number] SEX:M :1975 AGE: 48 LOC:CWM/NO/GS PCP: Loretta Hanson NP /roberto/ MAGDALENA STOCKTON MD Board Certified Dermatopathologist Signed: 06/02/2024 11:29 MAGDALENA STOCKTON MD [facility] Encounter Notes: All associated encounter notes [...] own. ---- SURGICAL PATHOLOGY ---- Reporting Lab: [facility] [IA# [id number]] [address] [place] [phone] - - - - - - - [...] - - - PATHOLOGY REPORT Accession No. [facility] 24 533 - - - - [...] - - - - BRIEF CLINICAL HISTORY: 52 540 Clinicl Hx:48 year old man with a [...] - - - POSTOPERATIVE DIAGNOSIS: Surgeon/Physician: CAITIE Morel GO =-=-=-=-=-=-=-=-=-=-=-=-=-=-=- =-=-=-=-=-=-=-=-=-=-=-=-=-=-=- =-=-=-=-=-=-=-=-= - - - - - - - - - - - - - - - - - - - - - - - - - - - - - - - - - - - - - - - PATHOLOGY REPORT Accession No. [facility] 24 533 - - - - - - - - - - - - - - - - - - - - - - - - - - - - - - - - - - - - - - - Gross description: [facility] 25 1925;;1;Melinda REYNA This is a [facility] case number [facility] 24 [id number]. Received in formalin labeled [...] lower back: Hemangioma, completely excised. CPT code 21194 /es/ MAGDALENA STOCKTON MD Board Certified Dermatopathologist Signed Jun 02, 2024@11:29 Performing Laboratory: Surgical Pathology Report Performed By: [facility] [CLIA# [id number]] [address] [place] [address] - - - - - - - [...] - ELVIN REYNA JR STANDARD FORM 515 ID:[id number] SEX:M :1975 AGE: 48 LOC:CWM/NO/GS PCP: Loretta Hanson NP Facility: [facility] EXAMINATION: General: Alert, calm, very [...] will be having follow [facility] with the [facility] D[facility]. /roberto/ CAITIE DONG MD SURGEON Signed: 06/05/2024 10:12 CAITIE DONG [facility]
--- OUTSIDE RECORDS SUMMARY | 2024-10-20 10:11 | XMS_ITS | Encounter Summary ---
Author Name [facility] [place] Organization [place] Address [address] [place] [address] Care Team Providers Care Thermal Technician Name Role Phone LORETTA HANSON Primary [...] Gonzalez's Name Patient's Relationship to Policy Gonzalez [facility] MEDICAID [facility] Aug 05, 2021 01 [id number] ELVIN WALSH PATIENT Selected Encounter This section includes the information on record at [place] for the Encounter. Date/Time Encounter Type Encounter Description Reason Provider Source December 10, 2023 03:00 PM THERAPEUTIC EXERCISES OCCUPATIONAL THERAPY ICD-10-CM M79.601 Pain in right arm VENITA TSANG [facility] Encounter Template Text not used by [place] Assessments - Encounter Diagnoses This section includes the primary and secondary diagnoses documented for the Encounter. Date/Time Primary/Secondary Diagnosis Diagnosis Name Provider Source December 10, 2023 04:08 PM PRIMARY [facility] right [facility] [place] [facility] Plan of Treatment: Future Appointments (+ 6 months) and Future Tests (+/- 45 days) The Plan of Treatment section includes future care activities for the patient from all [place] [facility] This section includes future appointments and [...] CNTRL [facility] [place] [facility] December 24, 2023 03:00 PM AMBULATORY - [facility] MEDICIN E [facility] [place] [facility] January 01, 2024 11:00 AM AMBULATORY - MEDICINE [facility] [facility] Jan 07, 2024 09:30 AM AMBULATORY - REHAB MEDICIN E [facility] [place] [facility] Jan 08, 2024 09:00 AM AMBULATORY - PSYCHIATRY [facility] [place] [facility] Jan 21, 2024 10:30 AM AMBULATORY - MEDICINE [place] [facility] [facility] Jan 21, 2024 11:30 AM AMBULATORY - MEDICINE [place] [facility] [place] [facility] Apr 24, 2024 02:00 PM AMBULATORY - MEDICINE [place] [facility] [facility] Apr 29, 2024 01:00 PM AMBULATORY - MEDICINE [place] [facility] [facility] Apr 29, 2024 02:00 PM AMBULATORY - MEDICINE [place] [facility] [facility] May 13, 2024 09:30 AM AMBULATORY - MEDICINE [place] [facility] [facility] May 21, 2024 11:00 AM AMBULATORY - MEDICINE [facility] [place] [facility] May 22, 2024 01:30 PM AMBULATORY - MEDICINE [facility] [place] [facility] May 29, 2024 02:00 PM AMBULATORY - MEDICINE [facility] [facility] Jun 05, 2024 10:00 AM AMBULATORY - MEDICINE [place] [facility] [place] [facility] Jun 05, 2024 02:00 PM AMBULATORY - MEDICINE [facility] [facility] Jun 05, 2024 02:45 PM AMBULATORY - NONE [facility] Active, Pending, and Scheduled Orders This section includes a listing of several types of active, pending, and scheduled orders, including clinic medications orders, diagnostic test orders, procedure orders and consult orders; where the start date of the order is 45 days before the date of the Encounter or 45 days after the date of theEncounter. The data comes from all [place] treatment facilities. Test Date/Time Test Type Test Details Facility Name Jan 21, 2024 12:00 AM Laboratory - Chemi stry Order OCCULT BLOOD FIT X1 SCREEN(IN-HOUSE) STOOL FECES SP [facility] Lab Results: +/- 30 days [...] Range Comment Nov 11, 2023 09:54 AM [facility] [id number] PGx Specimen Type: BLOOD Comment: SPECIMEN SHIPPED ON MANIFEST [id number] Ordering Provider: MAGGIE GALVAN Report Released Date/Time: Sep 13, 2023 12:46 PM Reporting Lab: [address] [address] Performing Lab: [facility] Social History: Smoking Status (Most [...] 26, 2023 10:00 AM VA-TOBACCO FORMER USER [facility] Tobacco Use History This section includes a history of the smoking, or tobacco-related health factors, that were collected on or before the date of the Encounter. The data comes from the [place] facility where the Encounter took place. Date/Time Smoking Status/Tobacco Use Comment F acility Aug 26, 2023 10:00 AM [place]-TOBACCO QUIT 15 YRS OR MORE [facility] Apr 11, 2022 11:00 AM [place]-TOBACCO FORMER USER [facility] Apr 11, 2022 11:00 AM [place]-TO[place]ACCO QUIT 15 YRS OR MORE [facility] Advance Directives: All historical and [...] Sep 27, 2005 ADVANCE DIRECTIVE SHARLENE SIDHU [facility] Sep 10, 2005 ADVANCE DIRECTIVE DISCUSSION [facility] Aug 14, 2004 ADVANCE DIRECTIVE DISCUSSION REGULO [...] *wall slides into abduction, 1x10 Access Code: [email or web address] URL: [email or web address] Date: 12/10/2023 Prepared by: [facility] Exercises - Shoulder Flexion Wall Slide [...] SYDNEY PALOMARES OCCUPATIONAL THERAPY STUDENT VENITA TSANGRL [facility]
--- OUTSIDE RECORDS SUMMARY | 2024-10-20 10:11 | XMS_ITS | Encounter Summary ---
Author Name Department [place] Organization [place] Address [address] [place] [address] Care Team Providers Care Social Sciences Lecturer Name Role Phone LORETTA HANSON Primary Care Provider DREAD [place] Primary Care Provider Unavailkristina pennington Insurance Providers: [...] [place] [facility] Aug 05, 2021 01 [id number] ELVIN WALSH PATIENT Selected Encounter This section includes the information on record at [place] for the Encounter. Date/Time Encounter Type Encounter Description Reason Provider Source Sep 28, 2024 11:27 AM OFFICE O/P EST LOW 20 MIN PODIATRY ICD-10-CM M79.674 Pain in right toe(s) SOFY DENTON DPSherwin IHE Encounter Template Text not used by [facility] Assessments - Encounter Diagnoses This section includes the primary and secondary diagnoses documented for the Encounter. Date/Time Primary/Secondary Diagnosis Diagnosis Name Provider Source Sep 28, 2024 11:27 AM PRIMARY Pain in right toe(s) SOFY DENTON DPM [place] [facility] [place] [facility] Plan of Treatment: Future Appointments (+ 6 months) and Future Tests (+/- 45 days) The Plan of Treatment section includes future care activities for the patient from all [place] [facility]. This section includes future appointments and future orders which are active, pending or scheduled. Future Appointments This section includes appointments that were scheduled to occur 6 months from the date of the Encounter, up to a maximum of 20 appointments. The data comes from all [facility] facilities. Appointment Date/Time Appointment Type Appointme nt Facility Name Sep 30, 2024 02:30 PM AMBULATORY - MEDICINE CT C [place] [place] [facility] Oct 05, 2024 03:00 PM AMBULATORY - MEDICINE [facility] C [place] [place] [facility] Oct 13, 2024 02:15 PM AMBULATORY - REHAB MEDICIN E [facility] [place] [facility] Oct 15, 2024 10:00 AM AMBULATORY - MEDICINE [place] C [place] [place] [facility] Oct 16, 2024 11:30 AM AMBULATORY - REHAB MEDICIN E [facility] [place] [facility] Oct 19, 2024 04:00 PM AMBULATORY - REHAB MEDICIN E [place] [facility] [place] [facility] Oct 20, 2024 09:30 AM AMBULATORY - MEDICINE CT C [place] [place] [facility] Oct 27, 2024 02:30 PM AMBULATORY - SURGERY [facility] Dec 01, 2024 03:00 PM AMBULATORY - MEDICINE [place] C [place]L [place] [facility] Jan 04, 2025 10:30 AM AMBULATORY - MEDICINE CT C [place] [place] [facility] Jan 19, 2025 11:00 AM AMBULATORY - MEDICINE CT C [place] [place] [facility] Active, Pending, and Scheduled Orders This section includes a listing of several types of active, pending, and scheduled orders, including clinic medications orders, diagnostic test orders, procedure orders and consult orders; where the start date of the order is 45 days before the date of the Encounter or 45 days after the date of theEncounter. The data comes from all [facility]. Test Date/Time Test Type Test Details Facility Name Oct 06, 2024 03:06 PM Consult Order COMMUNITY CARE-GEN SURGERY Cons Chemical Lab Supervisor's Choice CT [facility] [place] [facility] Oct 06, 2024 03:09 PM Consult Order COMMUNITY CARE-PHYSICAL THERAPY Cons Chemical Lab Supervisor's Choice CT [facility] [facility] Oct 12, 2024 06:55 AM Consult Order PODIATRIC SURGERY/ULCER CONSULT IFC NEWT Cons Chemical Lab Supervisor's Choice [facility] [place] [facility] Oct 16, 2024 12:00 AM Laboratory - Chemi stry Order CALCIUM, 24HR PANEL 24 HR URINE SP [facility] Lab Results: +/- 30 [...] Range Comment Sep 30, 2024 03:15 PM [facility] VITAMIN B12 Specimen Type: SERUM No comment entered. Ordering Provider: MAR HANSON Report Released Date/Time: Sep 30, 2024 02:42 PM Reporting Lab: [facility] [address] [facility] [address] Performing Lab: [facility] [address] [facility] [address] VITAMIN B12 332 pg/mL 200-900 Sep 30, 2024 03:15 PM [facility] MAGNESIUM Specimen Type: SERUM No comment entered. Ordering Provider: MAR HANSON Report Released Date/Time: Sep 30, 2024 02:41 PM Reporting Lab: [facility] [address] [facility] [address] Performing Lab: [facility] SYSTEMUSE[address] [address] MAGNESIUM 1.7 mg/dL 1.6-2.6 Sep 03, 2024 04:06 PM [facility] VITAMIN D (25-OH) Specimen Type: SERUM No comment entered. Ordering Provider: MAR HANSON Report Released Date/Time: Jul 23, 2024 12:38 PM Reporting Lab: [facility] [place] [facility] [address] [facility] [address] Performing Lab: [facility] [place] [facility] [address] [facility] [address] VITAMIN D (25-OH) 35 ng/mL 20-50 Sep 03, 2024 04:06 PM [facility] RUSTN [facility] TSH Specimen Type: SERUM No comment entered. Ordering Provider: MAR HANSON Report Released Date/Time: Jul 23, 2024 12:38 PM Reporting Lab: [facility] [place] [facility] [address] [facility] [address] Performing Lab: [facility]ITAL[facility]ERN [facility] SYSTEMUSETS [address] [address] TSH 1.59 u[IU]/mL 0.35-5.00 Sep 03, 2024 04:06 PM [facility]ETS [facility] PTH INTACT Specimen Type: SERUM No comment entered. Ordering Provider: KAVIN STORY Report Released Date/Time: Aug 30, 2024 05:36 PM Reporting Lab: [facility] [place] [address] [address] Performing Lab: [facility] TRN [facility]USETS [address] [address] PTH INTACT 96.0 pg/mL H 8.7-77.1 Sep 03, 2024 04:06 PM [facility] CALCIUM Specimen Type: SERUM No comment entered. Ordering Provider: KAVIN STORY Report Released Date/Time: Aug 30, 2024 05:36 PM Reporting Lab: [facility] TRN [facility]USETS [facility] [address] [facility] [address] Performing Lab: [facility] TRN [facility] SYSTEMUSETS [address] [address] CALCIUM 9.3 mg/dL 8.5-10.2 Sep 03, 2024 04:06 PM [facility]USETS [facility] BASIC METABOLIC PANEL (non-fasting) Specimen Type: SERUM No comment entered. Ordering Provider: STORY,KAVIN Report Released Date/Time: Aug 30, 2024 05:36 PM Reporting Lab: [facility] [address] [facility] [address] Performing Lab: [facility]ITAL[facility]ERN [facility] [address] [facility] [address] UREA NITROGEN 18 mg/dL 7-25 GLUCOSE 94 [...] PM VA-TOBACCO NEVER U SED OTHER TYPE [facility] Tobacco Use History This section includes a history of the smoking, or tobacco-related health factors, that were collected on or before the date of the Encounter. The data comes from the [place] facility where the Encounter took place. Date/Time Smoking Status/Tobacco Use Comment F acility Aug 03, 2024 01:00 PM VA-TOBACCO NEVER U SED OTHER TYPE [facility] Aug 26, 2023 10:00 AM VA-TOBACCO FORMER USER [place] [facility] [place] [facility] Aug 26, 2023 10:00 AM VA-TOBACCO QUIT [address] [facility] Apr 11, 2022 11:00 AM VA-TOBACCO FORMER USER [place] [facility] [place] [facility] Apr 11, 2022 11:00 AM VA-TOBACCO QUIT 15 YRS OR MORE [facility] Advance Directives: All historical and [...] 27, 2005 ADVANCE DIRECTIVE NAHUMSHARLENE Lo [facility] Sep 10, 2005 ADVANCE DIRECTIVE DISCUSSION [facility]ISharonANAFR[facility] Aug 14, 2004 ADVANCE DIRECTIVE [...] 3 OR MORE VIEWS (RIGHT): ELVIN REYNA [id number] -1975 M Ex Date: SEP 23, 2024@11:21 Req Phys: GANGA DAVID Pat Loc: [facility] PACT FLOAT PA (Req'g Loc [facility] Loc: [facility] 1 Service: Unknown [place] [address] (Case [id number] COMPLETE) FOOT 3 OR MORE VIEWS (RIGHT) (RAD Detailed) CPT:06067 Proc Modifiers : RIGHT CPT Modifiers : RT RIGHT SIDE Reason for Study: pre-podiatric evaluation Clinical History: Report Status: Verified Date Reported: SEP 23, 2024 Date Verified: SEP 23, 2024 Strainer Tender E-Sig:/ES/KRISTYN BERKOWITZ JR Report: Study: Weight-bearing AP, [...] BERKOWITZ JR, Radiologist (Raul) /KRISTYN VASQUES JR [facility] Sep 14, 2024 10:33 AM KIDNEY AND BLADDER ULTRASOUND: ELVIN REYNA [id number] -[id number] M Ex Date: SEP 14, 2024@10:33 Req Phys: LORETTA HANSON Loc: [facility] PACT 7 DECK ENGINE OPERATOR (Req'g Loc) Img Loc: ULTRASOUND Service: [place] [address] (Case 41 COMPLETE) ULTRASOUND KIDNEYS (US Detailed) CPT:23135 Reason for Study: follow up (Case 42 COMPLETE) ULTRASOUND URINARY BLADDER (US Detailed) CPT:33097 Clinical History: Some ultrasound tests require a prep. recent stone left ureter, stent removed on 08/03, seeking this to be done six weeks from now. Report Status: Verified Date Reported: SEP 14, 2024 Date Verified: SEP 14, 2024 Strainer Tender E-Sig:/ES/KRISTYN BERKOWITZ JR Report: Study: Genitourinary ultrasound. [...] Primary Interpreting Staff: KRISTYN BERKOWITZ JR, Radiologist (Strainer Tender) /KRISTYN VASQUES JR [facility] Encounter Notes: All associated encounter notes This section contains the clinical notes associated to the Encounter. Date/Time Encounter Note(s) Provider Source Sep 29, 2024 09:06 AM ADDENDUM: LOCAL TITLE: Addendum STANDARD TITLE: ADDENDUM DATE OF NOTE: SEP 29, 2024@09:06:47 ENTRY DATE: SEP 29, 2024@09:06:48 AUTHOR: SOPHIA DUTTA EXP COSIGNER: URGENCY: STATUS: COMPLETED [facility] Denton's schedule first available 60 minute isnt until 11/10/2024. [place] stated he is having issues from a past procedure Wound clinic has availability in october. Please advise. /roberto/ SOPHIA DUTTA SHEAR OPERATOR AUTOMATIC Signed: 09/29/2024 09:09 Receipt Acknowledged By: 09/29/2024 17:04 /roberto/ CYNTHIA ESPOSITO DPM PODIATRY ATTENDING 10/01/2024 12:28 /roberto/ SOFY DENTON DPM CARBONATION TESTER ========= --- Original Document --- 09/28/24 TELEPHONE NOTE/SPECIALTY CLINIC: vet states he would like to schedule a follow up with Dr Denton regarding his right great toe- states it would be a 60 min appt with a numbing agent -please advise. /roberto/ WARD MOONEY ADVANCED SHEAR OPERATOR AUTOMATIC Signed: 09/28/2024 11:29 Receipt Acknowledged By: 09/28/2024 13:07 /roberto/ SOFY DENTON DPM CARBONATION TESTER 09/28/2024 ADDENDUM STATUS: COMPLETED Please schedule next available 60 min appt for a procedure. /roberto/ SOFY DENTON DPM CARBONATION TESTER Signed: 09/28/2024 13:08 Receipt Acknowledged By: 09/29/2024 08:26 /amanda MOONEY ADVANCED SHEAR OPERATOR AUTOMATIC 09/29/2024 ADDENDUM STATUS: COMPLETED called vet, left pierre to call back [phone] ext [phone] /amanda MOONEY ADVANCED SHEAR OPERATOR AUTOMATIC Signed: 09/29/2024 08:27 09/29/2024 ADDENDUM STATUS: COMPLETED Patient was seen yesterday if he is still having problems put him in the clinic in October for me wound /roberto/ CYNTHIA ESPOSITO DPM PODIATRY ATTENDING Signed: 09/29/2024 17:06 SOPHIA DUTTA [facility] [place] [place] [facility] Sep 28, 2024 01:07 PM ADDENDUM: LOCAL TITLE: Addendum STANDARD TITLE: ADDENDUM DATE OF NOTE: SEP 28, 2024@13:07:43 ENTRY DATE: SEP 28, 2024@13:07:43 AUTHOR: SOFY DENTON DPM EXP COSIGNER: URGENCY: STATUS: COMPLETED Please schedule next available 60 min appt for a procedure. /roberto/ SOFY DENTON DPM CARBONATION TESTER Signed: 09/28/2024 13:08 Receipt Acknowledged By: 09/29/2024 08:26 /roberto/ WARD MOONEY ADVANCED SHEAR OPERATOR AUTOMATIC ========= --- Original Document --- 09/28/24 TELEPHONE NOTE/SPECIALTY CLINIC: vet states he would like to schedule a follow up with Dr Denton regarding his right great toe- states it would be a 60 min appt with a numbing agent -please advise. /amanda MOONEY ADVANCED SHEAR OPERATOR AUTOMATIC Signed: 09/28/2024 11:29 Receipt Acknowledged By: 09/28/2024 13:07 /amanda DENTON DPM CARBONATION TESTER 09/29/2024 ADDENDUM STATUS: UNSIGNED You may not VIEW this UNSIGNED Addendum. SOFY DENTON DPM [id number] [place] [facility] Sep 28, 2024 11:27 AM TELEPHONE ENCOUNTE R NOTE: LOCAL TITLE: TELEPHONE NOTE/SPECIALTY CLINIC STANDARD TITLE: TELEPHONE ENCOUNTER NOTE DATE OF NOTE: SEP 28, 2024@11:27 ENTRY DATE: SEP 28, 2024@11:27:09 AUTHOR: WARD MOONEY EXP COSIGNER: URGENCY: STATUS: COMPLETED TELEPHONE NOTE/SPECIALTY CLINIC Has ADDENDA vet states he would like to schedule a follow up with Dr Denton regarding his right great toe- states it would be a 60 min appt with a numbing agent -please advise. /roberto/ WARD MOONEY ADVANCED SHEAR OPERATOR AUTOMATIC Signed: 09/28/2024 11:29 Receipt Acknowledged By: 09/28/2024 13:07 /amanda DENTON DPM CARBONATION TESTER 09/28/2024 ADDENDUM STATUS: COMPLETED Please schedule next available 60 min appt for a procedure. /roberto/ SOFY DENTON DPM CARBONATION TESTER Signed: 09/28/2024 13:08 Receipt Acknowledged By: 09/29/2024 08:26 /roberto/ WARD MOONEY ADVANCED SHEAR OPERATOR AUTOMATIC 09/29/2024 ADDENDUM STATUS: COMPLETED called vet, left vm to call back [phone] ext [phone] /roberto/ WARD MOONEY ADVANCED SHEAR OPERATOR AUTOMATIC Signed: 09/29/2024 08:27 09/29/2024 ADDENDUM STATUS: COMPLETED [facility]enton's schedule first available 60 minute isnt until 11/10/2024. stated he is having issues from a past procedure Wound clinic has availability in october. Please advise. /roberto/ SOPHIA DUTTA SHEAR OPERATOR AUTOMATIC Signed: 09/29/2024 09:09 Receipt Acknowledged By: 09/29/2024 17:04 /roberto/ CYNTHIA ESPOSITO DPM PODIATRY ATTENDING * AWAITING SIGNATURE * SOFY DENTON DPM 09/29/2024 ADDENDUM STATUS: COMPLETED Patient was seen yesterday if he is still having problems put him in the clinic in October for me wound /roberto/ CYNTHIA ESPOSITO DPM PODIATRY ATTENDING Signed: 09/29/2024 17:06 WARD MOONEY [facility]
--- OUTSIDE RECORDS SUMMARY | 2024-10-20 10:11 | XMS_ITS | Encounter Summary ---
Author Name [facility] [place] [facility] [place] [facility] [place] Address [address] [place] [address] Care Team Providers Care Relationship Advisor Name Role Phone LORETTA HANSON Primary Care [...] [place] Aug 05, 2021 01 [phone] [id number] ELVIN WALSH PATIENT Selected Encounter This section includes the information on record at [place] for the Encounter. Date/Time Encounter Type Encounter Description Reason Provider Source Sep 03, 2024 03:00 PM OFF/OP CNSLTJ NEW/EST MOD 40 ENDOCRINOLOGY ICD-10-CM E21.3 Hyperparathyroid ism, unspecified STORY,KAVIN IHE Encounter Template Text not used by [facility] Assessments - Encounter Diagnoses This section includes the primary and secondary diagnoses documented for the Encounter. Date/Time Primary/Secondary Diagnosis Diagnosis Name Provider Source Oct 15, 2024 07:33 PM PRIMARY Hyperparathyroidi sm, unspecified STORY,KAVIN [facility] [place] [facility] Plan of Treatment: Future Appointments (+ 6 months) and Future Tests (+/- 45 days) The Plan of Treatment section includes future care activities for the patient [facility] [place] [facility] This section includes future appointments and future orders which are active, pending or scheduled. Future Appointments This section includes appointments that were scheduled to occur 6 months from the date of the Encounter, up to a maximum of 20 appointments. The data comes from all [place] treatment facilities. Appointment Date/Time Appointment Type Appointme nt Facility Name Sep 14, 2024 10:30 AM AMBULATORY - NONE [facility] [place] [facility] Sep 28, 2024 10:30 AM AMBULATORY - MEDICINE [facility] [place] [facility] Sep 30, 2024 02:30 PM AMBULATORY - MEDICINE [facility] [place] [facility] Oct 05, 2024 03:00 PM AMBULATORY - MEDICINE [facility] [place] [facility] Oct 13, 2024 02:15 PM AMBULATORY - REHAB MEDICIN E [facility] [place] [facility] Oct 15, 2024 10:00 AM AMBULATORY - MEDICINE [facility] [place] [facility] Oct 16, 2024 11:30 AM AMBULATORY - REHAB MEDICIN E [facility] [place] [facility] Oct 19, 2024 04:00 PM AMBULATORY - REHAB MEDICIN E [facility] [place] [facility] Oct 20, 2024 09:30 AM AMBULATORY - MEDICINE [facility] [place] [facility] Oct 27, 2024 02:30 PM AMBULATORY [facility] SURGERY [facility] Dec 01, 2024 03:00 PM AMBULATORY - MEDICINE [facility] [place] [facility] Jan 04, 2025 10:30 AM AMBULATORY - MEDICINE [facility] [place] [facility] Jan 19, 2025 11:00 AM AMBULATORY - MEDICINE [facility] [place] [facility] Active, [...] Order PTH INTACT BLOOD (RED-PLAIN) SERUM SP [facility] [place] [facility] Oct 06, 2024 03:06 PM Consult Order [facility]-GEN SURGERY Cons Edging Machine Catcher's Choice [facility] [place] [facility] Oct 06, 2024 03:09 PM Consult Order [facility]-PHYSICAL THERAPY Cons Edging Machine Catcher's Choice [facility] [place] [facility] Oct 12, 2024 06:55 AM Consult Order PODIATRIC SURGERY/ULCER CONSULT IFC NEWT Cons Edging Machine Catcher's Choice [facility] [place] [facility] Oct 16, 2024 12:00 AM Laboratory - Chemi stry Order CALCIUM, 24HR PANEL 24 HR URINE SP [facility] Lab Results: +/- 30 days of the [...] Range Comment Sep 30, 2024 03:15 PM [facility] VITAMIN B12 Specimen Type: SERUM No comment entered. Ordering Provider: MAR HANSON Report Released Date/Time: Sep 30, 2024 02:42 PM Reporting Lab: [facility] [place] [address] [address] Performing Lab: [facility] [address] [address] VITAMIN B12 332 pg/mL 200-900 Sep 30, 2024 03:15 PM [facility] MAGNESIUM Specimen Type: SERUM No comment entered. Ordering Provider: MAR HANSON Report Released Date/Time: Sep 30, 2024 02:41 PM Reporting Lab: [facility] [address] [address] Performing Lab: [facility] [place] [facility] [address] [facility] [address] MAGNESIUM 1.7 mg/dL 1.6-2.6 Sep 03, 2024 04:06 PM [facility] TSH Specimen Type: SERUM No comment entered. Ordering Provider: MAR HANSON Report Released Date/Time: Jul 23, 2024 12:38 PM Reporting Lab: [facility] [place] [facility] [address] [facility] [address] Performing Lab: [facility] [place] [facility] [address] [facility] [address] TSH 1.59 u[IU]/mL 0.35-5.00 Sep 03, 2024 04:06 PM [facility] VITAMIN D (25-OH) Specimen Type: SERUM No comment entered. Ordering Provider: MAR HANSON Report Released Date/Time: Jul 23, 2024 12:38 PM Reporting Lab: [facility] [place] [facility] [address] [facility] [address] Performing Lab: [facility] [address] [address] VITAMIN D (25-OH) 35 ng/mL 20-50 Sep 03, 2024 04:06 PM [facility] PTH INTACT Specimen Type: SERUM No comment entered. Ordering Provider: KAVIN STORY Report Released Date/Time: Aug 30, 2024 05:36 PM Reporting Lab: [facility] [place] [facility] [address] [facility] [address] Performing Lab: [facility] [address] [address] PTH INTACT 96.0 pg/mL H 8.7-77.1 Sep 03, 2024 04:06 PM [facility] CALCIUM Specimen Type: SERUM No comment entered. Ordering Provider: KAVIN STORY Report Released Date/Time: Aug 30, 2024 05:36 PM Reporting Lab: [facility] [place] [address] [address] Performing Lab: [facility] [address] [facility] [address] CALCIUM 9.3 mg/dL 8.5-10.2 Sep 03, 2024 04:06 PM [facility] BASIC METABOLIC PANEL (non-fasting) Specimen Type: SERUM No comment entered. Ordering Provider: KAVIN STORY Report Released Date/Time: Aug 30, 2024 05:36 PM Reporting Lab: [address] [address] Performing Lab: [address] [address] UREA NITROGEN 18 mg/dL 7-25 GLUCOSE 94 mg/dL 65-100 SODIUM 137 mmol/L 135-145 POTASSIUM 4.0 mmol/L 3.5-5.0 CHLORIDE 106 mmol/L 100-110 CO2 23 meq/L 20-30 CREATININE, Serum 0.87 mg/dL 0.50-1.40 eGFR(CKD-EPI 2020) >90 mL/min >60 Aug 10, 2024 02:45 PM [facility] OCCULT BLOOD FIT X1 SCREEN(IN-HOUSE) Specimen Type: FECES No comment entered. Ordering Provider: MAR HANSON Report Released Date/Time: Apr 24, 2024 02:10 PM Reporting Lab: [address] [address] Performing Lab: [address] [address] OCCULT BLOOD (FIT)#1 OF 1 Negative NEG Vital Signs: All taken on the encounter date This section contains inpatient and outpatient Vital Signs collected on the date of the Encounter. Date/Time Temperature Pulse Blood Pressure Respiratory Rate SP02 Pain Height Weight Body Mass Index Source Sep 03, 2024 03:20 PM 98.1 90 123/82 16 98 0 66 220 36 [facility] Social History: Smoking Status (Most current) and [...] 01:00 PM VA-TOBACCO NEVER U SED CIGARETTES [facility] Tobacco Use History This section includes a history of the smoking, or tobacco-related health factors, that were collected on or before the date of the Encounter. The data comes from the [place] facility where the Encounter took place. Date/Time Smoking Status/Tobacco Use Comment F acility Aug 03, 2024 01:00 PM VA-TOBACCO NEVER U SED OTHER TYPE [facility] Aug 26, 2023 10:00 AM VA-TOBACCO FORMER USER [facility] Aug 26, 2023 10:00 AM VA-TOBACCO QUIT 15 YRS OR MORE [facility] [place] [facility] Apr 11, 2022 11:00 AM VA-TOBACCO FORMER USER [facility] [place] [facility] Apr 11, 2022 11:00 AM CO-TOBACCO QUIT 15 YRS OR MORE [facility] Advance Directives: All historical and current [...] 3 OR MORE VIEWS (RIGHT): ELVIN REYNA [id number] -1975 M Exm Date: SEP 23, 2024@11:21 Req Phys: GANGA DAVID Loc: [facility] PACT FLOAT PA (Req'g Loc Img Loc: [facility]/BUILDING 1 Service: Unknown [place], [place] (Case 107 COMPLETE) FOOT 3 OR MORE VIEWS (RIGHT) (RAD Detailed) CPT:17100 Proc Modifiers : RIGHT CPT Modifiers : RT RIGHT SIDE Reason for Study: pre-podiatric evaluation Clinical History: Report Status: Verified Date Reported: SEP 23, 2024 Date Verified: SEP 23, 2024 Parts Room Associate E-Sig:/ES/KRISTYN BERKOWITZ JR Report: Study: Weight-bearing AP, [...] Primary Interpreting Staff: KRISTYN BERKOWITZ JR, Radiologist (Parts Room Associate) /KRISTYN VASQUES JR [facility] Sep 14, 2024 10:33 AM KIDNEY AND BLADDER ULTRASOUND: ELVIN REYNA [id number] -1975 M Exm Date: SEP 14, 2024@10:33 Req Phys: LORETTA HANSON Loc: [facility] PACT 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 recent stone left ureter, stent removed on 08/03, seeking this to be done six weeks from now. Report Status: Verified Date Reported: SEP 14, 2024 Date Verified: SEP 14, 2024 Parts Room Associate E-Sig:/ES/KRISTYN BERKOWITZ JR Report: Study: Genitourinary ultrasound. [...] BERKOWITZ JR, Radiologist (Raul) /KRISTYN VASQUES JR [facility] Encounter Notes: All associated encounter notes This section contains the clinical notes associated to the Encounter. Date/Time Encounter Note(s) Provider Source Sep 03, 2024 07:39 AM ENDOCRINOLOGY CONSULT: LOCAL TITLE: CONSULT REPORT/ENDOCRINE STANDARD TITLE: ENDOCRINOLOGY CONSULT DATE OF NOTE: SEP 03, 2024@07:39 ENTRY DATE: SEP 03, 2024@07:39:27 AUTHOR: KAVIN STORY COSIGNER: URGENCY: STATUS: COMPLETED CC: HYPERPARATHYRROIDISM - INITIAL EVALUATION HPI: Reason For Request: recent hospitalization for kidney stone, while there found to have elevated PTH. This is a calcium oxalate stone. Taking vitamin D supplement, states he has a hx of low vitamin D. His father had kidney stones. Hospitalized 2023 for kidney stone ([facility]). Previous stone 03/2024. Also had three or four previous stones. Pt comes in today for initia Symptoms include: Renal stones: yes Mood change: no GI disturbance: no Arthralgias: no Muscle cramps or spasms: no Hypertension: No personal hx of shoe size change or change in features. No striae no cushinoid features. No proximal muscle weakness. No galactorrhea, no unusual h/a Family history: hypercalcemia: none known hyperparathyroidism: none known kidney stones: yes Pituitary adenoma: no Pancreatic mass: no No recent endocrine labs available Ultrasound of neck: none Bone Density: none Parathyroid scan: none Past history reviewed: Active Problem Kidney stone N20.0 07/23/2024 LORETTA HANSON Gallbladder polyp K82.4 03/26/2023 LORETTA HANSON Pain in right arm M79.601 02/21/2023 LORETTA HANSON Poon's esophagus K22.70 09/18/2022 LORETTA HANSON Attention deficit hyperactivity dis 06/25/2022 ELISHA RAHMAN Sleep apnea G47.33 04/12/2022 LORETTA HANSON Overweight E66.3 04/12/2022 LORETTA HANSON GERD - Gastro-Esophageal Reflux Dis 04/11/2022 LORETTA HANSON Anxiety ([facility] [id number]) F41.9 04/11/2022 LORETTA HANSON Hyperlipidemia ([facility] [id number]) E78.5 04/11/2022 LORETTA HANSON Fatty liver K76.0 04/11/2022 LORETTA HANSON Family history of diabetes mellitus 04/11/2022 LORETTA HANSON Active Outpatient Medications (including Supplies): AZELASTINE 137MCG/SPRAY 200D NASAL INHL SPRAY 1 SPRAY INTO ACTIVE EACH NOSTRIL ONCE DAILY Indication: FOR SEASONAL RUNNY NOSE CHOLECALCIF 50MCG (D3-2,000UNIT) TAB TAKE ONE TABLET BY ACTIVE MOUTH ONCE DAILY FOR VITAMIN SUPPLEMENTATION Indication: FOR VITAMIN D DEFICIENCY CIPROFLOXACIN HCL 500MG TAB TAKE ONE TABLET BY MOUTH TWICE ACTIVE discontinued DAILY FOR INFECTION DM 10/GUAIFENESN 100MG/5ML (AF & SF) LIQ TAKE 5 MLS BY ACTIVE discontinued MOUTH EVERY 6 HOURS NEEDED Indication: FOR COUGH OMEPRAZOLE 20MG EC CAP TAKE TWO CAPSULES BY MOUTH ONCE ACTIVE DAILY (NOTE DOSE) Indication: FOR EXCESSIVE PRODUCTION OF STOMACH ACID Non-VA CHOLECALCIF 10MCG (D3-400UNIT) TAB 10MCG BY MOUTH ACTIVE ONCE DAILY discontinued Indication: FOR VITAMIN D DEFICIENCY Non-VA OTHER CAP/TAB RACHANA WORKZ MUSHROOM COMPLEX BY MOUTH ACTIVE ONCE DAILY Non-VA PROBIOTIC (CULTURELLE DIGESTIVE DAILY) CAP/TAB BY ACTIVE MOUTH discontinued Social history: Lives with SO. 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 No cushinoid features. Assessment/plan: Hyperparathyroidism: The evaluation of hyperparathyroidism, indications for surgery (age < 50, renal stones, calcium >11.2, osteoporosis) were reviewed. We discussed the role of calcium supplementation and vitamin D supplementation. Discussed that calcium citrate is better absorbed than calcium carbonate. Suggest calcium citrate 600 mg bid. Suggest to continue vitamin D 50 mcg daily He agrees Lab: Calcium, vitamin D, PTH BMP now Once initial replenishment complete, will obtain 24 hour urine calcium Imaging: Bone density if hyperparathyroidism recommended. We discussed action of PTH and rationale. He agrees Treatment: Follow up Three months [facility] Medication Reconciliation: Outpatient: Has the patient been taking medications as documented in the EMLR? No: Discrepencies were identified. See below. Essential Medication List for Review used to [...] discontinued in the past 90 days. - Discrepancies were identified, addressed, and discussed with the patient/caregiver at this encounter. - All changes in medications, including all [...] JLV. Allergies/ADRs (Tool #5) FACILITY ALLERGY/ADR -------- [facility] NO KNOWN ALLERGIES [facility] NO KNOWN ALLERGIES [facility] NO KNOWN ALLERGIES [facility] [place] [facility] No Known Allergies [facility] Med Navi [place] (Tool #1) INCLUDED IN THIS LIST: Alphabetical list of active outpatient prescriptions dispensed from this CO (local) and dispensed from another CO or [facility] facility (remote) as well as inpatient orders (local pending and active), local clinic medications, locally documented non-VA medications, and local prescriptions that have or been discontinued in the past 90 days. Non-VA Meds Last Documented On: Jul 23, 2024 NOTE The display of VA prescriptions dispensed from another CO or [facility] facility (remote) is limited to active outpatient prescription entries matched to National Drug File at the originating site and may not include some items such as investigational drugs, compounds, etc. NOT INCLUDED IN THIS LIST: Medications self-entered by the patient into personal health records (i.e. [employer]) are NOT included in this list. Non-VA medications documented outside this CO, remote inpatient orders (regardless of status) and remote clinic medications are NOT included in this list. The patient and provider must always discuss medications the patient is taking, regardless of where the medication was dispensed or obtained. OUTPT AZELASTINE 137MCG/SPRAY 200D NASAL INHL (Status = Discontinued) SPRAY 1 SPRAY INTO EACH NOSTRIL ONCE DAILY FOR SEASONAL RUNNY NOSE Rx# [id number] Last Released: 01/01/24 Qty/Days Supply: 09/03 Rx Expiration Date: 01/01/25 Refills Remainin Indication: FOR SEASONAL RUNNY NOSE OUTPT CALCIUM 200MG (CA CITRATE-950MG) TAB (Status = Pending) TAKE THREE TABLETS BY MOUTH TWICE DAILY Login Date: 09/03/24 Qty/Days Supply: 540/90 Refills Ordered: 3 Non-VA CHOLECALCIF 10MCG (D3-400UNIT) TAB TAKE ONE TABLET BY MOUTH ONCE DAILY Indication: FOR VITAMIN D DEFICIENCY OUTPT CHOLECALCIF 50MCG (D3-2,000UNIT) TAB (Status = Discontinued) TAKE ONE TABLET BY MOUTH ONCE DAILY FOR VITAMIN SUPPLEMENTATION Rx# [id number] Last Released: 05/09/24 Qty/Days Supply: 100/ Rx Expiration Date: 06/21/24 Refills Remainin OUTPT CHOLECALCIF 50MCG (D3-2,000UNIT) TAB (Status = Active) TAKE ONE TABLET BY MOUTH ONCE DAILY FOR VITAMIN SUPPLEMENTATION Rx# [id number] Last Released: 08/21/24 Qty/Days Supply: 100 Rx Expiration Date: 08/20/25 Refills Remainin Indication: FOR VITAMIN D DEFICIENCY OUTPT CIPROFLOXACIN HCL 500MG TAB (Status = Discontinued) TAKE ONE TABLET BY MOUTH TWICE DAILY FOR INFECTION Rx# [id number] Last Released: 08/06/24 Qty/Days Supply: 05/09 Rx Expiration Date: 09/05/24 Refills Remainin OUTPT DM 10/GUAIFENESN 100MG/5ML (AF & SF) LIQ (Status = Discontinued) TAKE 5 MLS BY MOUTH EVERY 6 HOURS NEEDED FOR COUGH Rx# [id number] Last Released: 04/29/24 Qty/Days Supply: 240/10 Rx Expiration Date: 04/30/25 Refills Remainin Indication: FOR COUGH OUTPT OMEPRAZOLE 20MG EC CAP (Status = Discontinued) TAKE ONE CAPSULE BY MOUTH ONCE DAILY Rx# [id number] Last Released: 05/09/24 Qty/Days Supply: 90 Rx Expiration Date: 11/08/24 Refills Remainin Indication: FOR EXCESSIVE PRODUCTION OF STOMACH ACID OUTPT OMEPRAZOLE 20MG EC CAP (Status = Active) TAKE TWO CAPSULES BY MOUTH ONCE DAILY FOR EXCESSIVE PRODUCTION OF STOMACH ACID (NOTE DOSE) Rx# [id number] Last Released: 07/27/24 Qty/Days Supply: 180/90 Rx Expiration Date: 07/24/25 Refills Remainin Indication: FOR EXCESSIVE PRODUCTION OF STOMACH ACID Non-VA OTHER CAP/TAB TAKE RACHANA WORKZ MUSHROOM COMPLEX BY MOUTH ONCE DAILY Jun 18, 2024 Patient wants to buy from Non-VA pharmacy. For immunity, and energy Non-VA PROBIOTIC (CULTURELLE DIGESTIVE DAILY) CAP/TAB TAKE BY MOUTH ONCE DAILY Sep 17, 2022 SUPPLIES /roberto/ KAVIN STORY MD STAFF PHYSICIAN Signed: 09/03/2024 15:56 KAVIN STORY [facility] [place] [facility]
--- OUTSIDE RECORDS SUMMARY | 2024-10-20 10:11 | XMS_ITS | Encounter Summary ---
Author Name [facility] [place] Organization [facility] [place] [facility] [place] Address [address] [place] [address] Care Team Providers Care Customer Experience Manager Name Role Phone LORETTA HANSON Primary [...] [place] Aug 05, 2021 01 [id number] ELVIN WALSH PATIENT Selected Encounter This section includes the information on record at [place] for the Encounter. Date/Time Encounter Type Encounter Description Reason Provider Source Sep 28, 2024 10:30 AM OFFICE O/P EST LOW 20 MIN PODIATRY ICD-10-CM M79.674 Pain in right toe(s) SOFY DENTON DPSherwin IHE Encounter Template Text not used by [facility] Assessments - Encounter Diagnoses This section includes the primary and secondary diagnoses documented for the Encounter. Date/Time Primary/Secondary Diagnosis Diagnosis Name Provider Source Sep 28, 2024 01:07 PM PRIMARY Pain in right toe(s) SOFY DENTON DPM [place] [facility] [place] [facility] Plan of Treatment: Future Appointments (+ 6 months) and Future Tests (+/- 45 days) The Plan of Treatment section includes future care activities for the patient from all [place] [facility]. This section includes future appointments and future [...] 30, 2024 02:30 PM AMBULATORY - MEDICINE [place] [facility] [place] [facility] Oct 05, 2024 03:00 PM AMBULATORY - MEDICINE [place] [facility] [place] [facility] Oct 13, 2024 02:15 PM AMBULATORY - REHAB MEDICIN E [facility] [place] [facility] Oct 15, 2024 10:00 AM AMBULATORY - MEDICINE [place] [facility] [place] [facility] Oct 16, 2024 11:30 AM AMBULATORY - REHAB MEDICIN E [facility] [place] [facility] Oct 19, 2024 04:00 PM AMBULATORY - REHAB MEDICIN E [place] [facility] [place] [facility] Oct 20, 2024 09:30 AM AMBULATORY - MEDICINE [place] [facility] [facility] Oct 27, 2024 02:30 PM AMBULATORY - SURGERY [place] Dec 01, 2024 03:00 PM AMBULATORY - MEDICINE [place] [facility] [facility] Jan 04, 2025 10:30 AM AMBULATORY - MEDICINE [place] [facility] [facility] Jan 19, 2025 11:00 AM AMBULATORY - MEDICINE [place] [facility] [facility] Active, Pending, and Scheduled Orders This section includes a listing of several types of active, pending, and scheduled orders, including clinic medications orders, diagnostic test orders, procedure orders and consult orders; where the start date of the order is 45 days before the date of the Encounter or 45 days after the date of theEncounter. The data comes from all [facility]. Test Date/Time Test Type Test Details Facility Name Oct 06, 2024 03:06 PM Consult Order COMMUNITY CARE-GEN SURGERY Cons Electric Train Driver's Choice [place] [facility] [place] [facility] Oct 06, 2024 03:09 PM Consult Order COMMUNITY CARE-PHYSICAL THERAPY Cons Electric Train Driver's Choice [place] [facility] [place] [facility] Oct 12, 2024 06:55 AM Consult Order PODIATRIC SURGERY/ULCER CONSULT IFC NEWT Cons Electric Train Driver's Choice [facility] [place] [facility] Oct 16, 2024 12:00 AM Laboratory - Chemi stry Order CALCIUM, 24HR PANEL 24 HR URINE SP [facility] Lab Results: +/- 30 days [...] Range Comment Sep 30, 2024 03:15 PM [facility] VITAMIN B12 Specimen Type: SERUM No comment entered. Ordering Provider: MAR HANSON Report Released Date/Time: Sep 30, 2024 02:42 PM Reporting [facility] [address] [facility] [address] Performing Lab: [facility] [address] [address] VITAMIN B12 332 pg/mL 200-900 Sep 30, 2024 03:15 PM [facility] MAGNESIUM Specimen Type: SERUM No comment entered. Ordering Provider: MAR HANSON Report Released Date/Time: Sep 30, 2024 02:41 PM Reporting Lab: [facility] [address] [facility] [address] Performing Lab: [facility]ENTERUSE[address] [address] MAGNESIUM 1.7 mg/dL 1.6-2.6 Sep 03, 2024 04:06 PM [facility] VITAMIN D (25-OH) Specimen Type: SERUM No comment entered. Ordering Provider: MAR HANSON Report Released Date/Time: Jul 23, 2024 12:38 PM Reporting Lab: [facility] [place] [facility] [address] [facility] [address] Performing Lab: [facility] [place] [facility] [address] [facility] [address] VITAMIN D (25-OH) 35 ng/mL 20-50 Sep 03, 2024 04:06 PM [facility]ENTERUSETS [facility] TSH Specimen Type: SERUM No comment entered. Ordering Provider: MAR HANSON Report Released Date/Time: Jul 23, 2024 12:38 PM Reporting Lab: [facility] [place] [facility] [address] [facility] [address] Performing Lab: [facility]ENTERUSETS [address] [address] TSH 1.59 u[IU]/mL 0.35-5.00 Sep 03, 2024 04:06 PM [facility] PTH INTACT Specimen Type: SERUM No comment entered. Ordering Provider: KAVIN STORY Report Released Date/Time: Aug 30, 2024 05:36 PM Reporting Lab: [facility] [place] [address] [address] Performing Lab: [facility] TRN [facility]ENTERUSETS [address] [address] PTH INTACT 96.0 pg/mL H 8.7-77.1 Sep 03, 2024 04:06 PM [facility] CALCIUM Specimen Type: SERUM No comment entered. Ordering Provider: KAVIN STORY Report Released Date/Time: Aug 30, 2024 05:36 PM Reporting Lab: [facility] TR[facility]ETS [facility] [address] [facility] [address] Performing Lab: [facility] TRN [facility]ENTERUSETS [address] [address] CALCIUM 9.3 mg/dL 8.5-10.2 Sep 03, 2024 04:06 PM [facility] BASIC METABOLIC PANEL (non-fasting) Specimen Type: SERUM No comment entered. Ordering Provider: STORY,KAVIN Report Released Date/Time: Aug 30, 2024 05:36 PM Reporting Lab: [facility] [address] [facility] [address] Performing Lab: [facility] [address] [facility] [address] UREA NITROGEN 18 mg/dL 7-25 GLUCOSE 94 [...] PM VA-TOBACCO NEVER U SED OTHER TYPE [facility] Tobacco Use History This section includes a history of the smoking, or tobacco-related health factors, that were collected on or before the date of the Encounter. The data comes from the [place] facility where the Encounter took place. Date/Time Smoking Status/Tobacco Use Comment F acility Aug 03, 2024 01:00 PM VA-TOBACCO NEVER U SED OTHER TYPE [facility] Aug 26, 2023 10:00 AM VA-TOBACCO FORMER USER [place] [facility] [facility] Aug 26, 2023 10:00 AM VA-TOBACCO QUIT 15 YRS OR MORE [facility] Apr 11, 2022 11:00 AM VA-TOBACCO FORMER USER [place] [facility] [facility] Apr 11, 2022 11:00 AM VA-TOBACCO QUIT 15 YRS OR MORE [facility] Advance Directives: All historical and current [...] 27, 2005 ADVANCE DIRECTIVE NAHUMSHARLENE Lo AARON [facility] Sep 10, 2005 ADVANCE DIRECTIVE DISCUSSION SIDDIQUISharonANAFRANCE [facility] Aug 14, 2004 ADVANCE DIRECTIVE [...] the Encounter. The data comes from all [place] treatment facilities. Date/Time Radiology Report Provider Source Sep 23, 2024 11:21 AM FOOT 3 OR MORE VIEWS (RIGHT): ELVIN REYNA [id number] -[id number] M Ex Date: SEP 23, 2024@11:21 Req Phys: GANGA DAVID Pat Loc: [facility] PACT FLOAT PA (Req'g Loc [facility] [place] [facility] 1 Service: Unknown [place] [address] (Case [id number] COMPLETE) FOOT 3 OR MORE VIEWS (RIGHT) (RAD Detailed) CPT:69713 Proc Modifiers : RIGHT CPT Modifiers : RT RIGHT SIDE Reason for Study: pre-podiatric evaluation Clinical History: Report Status: Verified Date Reported: SEP 23, 2024 Date Verified: SEP 23, 2024 Universal Branch Consultant E-Sig:/ES/KRISTYN BERKOWITZ JR Report: Study: Weight-bearing AP, [...] BERKOWITZ JR, Radiologist (Raul) /KRISTYN VASQUES JR [facility] Sep 14, 2024 10:33 AM KIDNEY AND BLADDER ULTRASOUND: ELVIN REYNA [id number] -[id number] M Ex Date: SEP 14, 2024@10:33 Req Phys: LORETTA HANSON Loc: [facility] PACT 7 SUSTAINABILITY ENGINEER (Req'g Loc) Img Loc: ULTRASOUND Service: [place] [address] (Case 41 COMPLETE) ULTRASOUND KIDNEYS (US Detailed) CPT:19005 Reason for Study: follow up (Case 42 COMPLETE) ULTRASOUND URINARY BLADDER (US Detailed) CPT:16119 Clinical History: Some ultrasound tests require a prep. recent stone left ureter, stent removed on 08/03, seeking this to be done six weeks from now. Report Status: Verified Date Reported: SEP 14, 2024 Date Verified: SEP 14, 2024 Universal Branch Consultant E-Sig:/ES/KRISTYN BERKOWITZ JR Report: Study: Genitourinary ultrasound. [...] Primary Interpreting Staff: KRISTYN BERKOWITZ JR, Radiologist (Universal Branch Consultant) /KRISTYN VASQUES JR [place] [facility] [place] [facility] Encounter Notes: All associated encounter notes This section contains the clinical notes associated to the Encounter. Date/Time Encounter Note(s) Provider Source Sep 28, 2024 10:48 AM PODIATRY NOTE: LOCAL TITLE: PODIATRY NOTE STANDARD TITLE: PODIATRY NOTE DATE OF NOTE: SEP 28, 2024@10:48 ENTRY DATE: SEP 28, 2024@10:49:02 AUTHOR: SOFY DENTON DPM EXP COSIGNER: URGENCY: STATUS: COMPLETED PODIATRY NOTE Has ADDENDA SUBJECTIVE: The patient is a 49 year old MALE RTC c/o intermittent pain in right big toe and big toe joint. States pain (on and off, for short duration) on medial side of big toe joint started about 1-2 wks ago, no precipitating factor. No change in activity or footwears. Denies trauma. Pt also reports intermittent dull pain of right big toe where he had the nail surgery. Rates the pain in big toe as 1-2/10 now and can get up to 5/10 at worst. Pain comes and goes. No pain w/ pushing on site. Denies drainage. Pt had PNM on 06/26/24. Pt reports walking exercise 2-3 mi/day for a number of years. Wears Boy, has indoor and outdoor shoes. Wears Boy at home w/ his orthotics. ALLERGY: Patient has answered NKA FOCUSED EXAM: RIGHT FOOT: Mild ttp medial 1st MTPJ. There is no edema, no erythema. No pain w/ ROM of 1st MTPJ, no crepitus. No bony eminence or deformity. Checked w/ shoes on and noted no pressure on medial MTPJ. There is trace if any, edema and questionable deep erythema on proximal medial nail fold of R halluc in comparison to contralateral hallux. There is no pain w/ palpation. No drainage noted. Site curetted and noted possible thick, hardened keratotic tissue. Unable to eval for possible nail regrowth due to sensitive nature of location to probe and explore. ASSESSMENT/PLAN: R toe/foot pain - Checked LEARNING SUPPORT SPECIALIST and added fabricated 08/12 met pad on R. - R hallux site curetted. May need further exploration under local. Pt would like to schedule for this. RTC next available I discussed the findings and plan with the patient. I educated the patient about the foot condition/issue. The patient verbalized understanding of the plan and education. I performed medication reconciliation within the scope of my practice. All medications related to Podiatry are up to date. /roberto/ SOFY DENTON DPM HARVESTER OPERATOR Signed: 09/28/2024 13:07 09/28/2024 ADDENDUM STATUS: COMPLETED Report Status: Verified Date Reported: SEP 23, 2024 Date Verified: SEP 23, 2024 Universal Branch Consultant E-Sig:/ES/KRISTYN BERKOWITZ JR Report: Study: Weight-bearing AP, [...] No acute bony abnormality, as described above. X-ray findings unremarkable. They were reviewed w/ pt. /roberto/ SOFY DENTON DPM HARVESTER OPERATOR Signed: 09/28/2024 13:10 SOFY DENTON DPM [facility]
--- OUTSIDE RECORDS SUMMARY | 2024-10-20 10:11 | XMS_ITS | Encounter Summary ---
Author Name [facility] [place] Organization [place] Address [address] [place] [address] Care Team Providers Care Consulting Systems Engineer Name Role Phone LORETTA HANSON Primary [...] [place] Aug 05, 2021 01 [id number] ELVIN WALSH PATIENT Selected Encounter This section includes the information on record at [place] for the Encounter. Date/Time Encounter Type Encounter Description Reason Provider Source Apr 24, 2024 02:00 PM OFFICE O/P EST LOW 20 MIN PRIMARY CARE/MEDICINE ICD-10-CM K21.9 Gastro-esophageal reflux disease without esophagitis LEROY HANSON AM Encounter Template Text not used by [place] Assessments - Encounter Diagnoses This section includes the primary and secondary diagnoses documented for the Encounter. Date/Time Primary/Secondary Diagnosis Diagnosis Name Provider Source Apr 24, 2024 02:19 PM PRIMARY Gastro-esophageal reflux disease without esophagitis LEROY HANSON AM [place] [facility] [place] [facility] Apr 24, 2024 02:19 PM SECONDARY Hyperlipidemia, unspecified LEROY HANSON AM [place] [facility] [place] [facility] Apr 24, 2024 02:19 PM SECONDARY Other seborrheic keratosis LEROY HANSON AM J [place] [facility] [facility] Plan of Treatment: Future Appointments (+ 6 months) and Future Tests (+/- 45 days) The Plan of Treatment section includes future care activities for the patient from all [place] treatmentfacilities. This section includes future appointments and [...] MEDICINE [facility] [place] [facility] Apr 29, 2024 02:00 PM AMBULATORY - MEDICINE [facility] [place] [facility] May 13, 2024 09:30 AM AMBULATORY - MEDICINE [facility] [facility] May 21, 2024 11:00 AM AMBULATORY - MEDICINE [facility] [place] [facility] May 22, 2024 01:30 PM AMBULATORY - MEDICINE [facility] [facility] May 29, 2024 02:00 PM AMBULATORY - MEDICINE [facility] [place] [facility] Jun 05, 2024 10:00 AM AMBULATORY - MEDICINE [facility] [facility] Jun 05, 2024 02:00 PM AMBULATORY - MEDICINE [facility] [facility] Jun 05, 2024 02:45 PM AMBULATORY - NONE [facility] [place] [facility] Jun 17, 2024 08:00 AM AMBULATORY - PSYCHIATRY [facility] [place] [facility] Jun 18, 2024 08:30 AM AMBULATORY - MEDICINE [facility] [facility] Jun 18, 2024 11:00 AM AMBULATORY - PSYCHIATRY [facility] [place] [facility] Jun 26, 2024 09:00 AM AMBULATORY - MEDICINE [place] [facility] [place] [facility] Jul 13, 2024 09:00 AM AMBULATORY - MEDICINE [place] [facility] [facility] Jul 23, 2024 11:30 AM AMBULATORY - MEDICINE [place] [facility] [place] [facility] Aug 03, 2024 01:00 PM AMBULATORY - MEDICINE [place] [facility] [place] [facility] Aug 06, 2024 02:30 PM AMBULATORY - MEDICINE [place] [facility] [place] [facility] Aug 14, 2024 11:30 AM AMBULATORY - MEDICINE [facility] [place] [facility] Sep 02, 2024 01:00 PM AMBULATORY - SURGERY [place] [facility] Sep 02, 2024 01:00 PM AMBULATORY - MEDICINE [facility] Active, Pending, and Scheduled Orders This section [...] PM Consult Order DERMATOLOG Y/NHM (OUTPT) Cons Lead Level Designer's Choice [facility] Vital Signs: All taken on the encounter date This section contains inpatient and outpatient Vital Signs collected on the date of the Encounter. Date/Time Temperature Pulse Blood Pressure Respiratory Rate SP02 Pain Height Weight Body Mass Index Source Apr 24, 2024 01:56 PM 98.2 86 130/88 20 98 0 66 244 [facility] Social History: Smoking Status (Most [...] Encounter took place. Date/Time Current Smoking Status Khoi christensen Aug 26, 2023 10:00 AM [facility] Tobacco Use History This section includes a history of the smoking, or tobacco-related health factors, that were collected on or before the date of the Encounter. The data comes from the [place] facility where the Encounter took place. Date/Time Smoking Status/Tobacco Use Comment F acaleksey Aug 26, 2023 10:00 AM [place]-TOBACCO QUIT 15 YRS OR MORE [facility] Apr 11, 2022 11:00 AM [place]-TOBACCO FORMER USER [facility] Apr 11, 2022 11:00 AM [place]-TOBACCO QUIT 15 YRS OR MORE [facility] Advance Directives: All historical [...] Sep 27, 2005 ADVANCE DIRECTIVE SHARLENE SIDHU [facility] Sep 10, 2005 ADVANCE DIRECTIVE DISCUSSION FRANCE RODRIGEZ [facility] Aug 14, 2004 ADVANCE DIRECTIVE DISCUSSION [...] complaint: Patient is a 48 year old [place]. HPI: Pleasant male [place] here to follow up. Feeling well. He [...] 13:56)BMI: 39.5244 lb [110.68 kg] (04/24/2024 13:56) [place] is alert and oriented X3 Cardiovasc: 2plus [...] Gastro-Esophageal Reflux Disease - stable 2. Hyperlipidemia ([facility] [id number]) - improved Health Care Maintenance: declines flu and covid Review of medial record = 5mins Time spent with Patient including shared decision making = 20 mins Post visit documentation = 5mins Total time = 30 mins Follow up visit in 12 mos. Toxic Exposure Screening: The /caregiver was asked if they believe the experienced any toxic exposure(s), such as Airborne Hazards and Open Burn Pit, [place] War related exposures, Agent Moody, Radiation, contaminated water at [place] or other such exposures, while serving in the [employer]. [place] has no concerns about toxic exposure(s) while serving in the [employer]. The /caregiver was informed that we will continue to [...] of active outpatient prescriptions dispensed from this [place] (local) and dispensed from another [place] or [facility] facility (remote) as well as [...] next appointment, whether with a VA or non-[place] provider. Influenza Immunization: Deferral / Refusal The [...] Documented: 04/24/24 14:18 /roberto/ Loretta Hanson DNP, SITE PHYSICIAN-BC, CNL Primary Care Nurse Practitioner Signed: 04/24/2024 14:18 LORETTA HANSON [place] [facility]
--- OUTSIDE RECORDS SUMMARY | 2024-10-20 10:11 | XMS_ITS ---
Author Name [facility] [place] Address [address] [place] [address] Care Team Providers Care Environmental Safety Specialist Name Role Phone LORETTA HANSON Primary [...] [place] H Aug 05, 2021 01 [phone] [id number] ELVIN WALSH PATIENT Selected Encounter This section includes the information on record at [place] for the Encounter. Date/Time Encounter Type Encounter Description Reason Provider Source Oct 15, 2024 10:00 AM COMPRE OPH EXAM EST PT 1/> OPTOMETRY ICD-10-CM H52.223 Regular astigmatism, bilateral MERHAR,JORGE B IHE Encounter Template Text not used by [place] Assessments - Encounter Diagnoses This section includes the primary and secondary diagnoses documented for the Encounter. Date/Time Primary/Secondary Diagnosis Diagnosis Name Provider Source Oct 15, 2024 12:57 PM PRIMARY Regular astigmatism, bilateral MERHAR,JORGE B [place] [facility] [place] [facility] Plan of Treatment: Future Appointments (+ 6 months) and Future Tests (+/- 45 days) The Plan of Treatment section includes future care activities for the patient [facility] This section includes future appointments and future orders which are active, pending or scheduled. Future Appointments This section includes appointments that were scheduled to occur 6 months from the date of the Encounter, up to a maximum of 20 appointments. The data comes from all [facility] facilities. Appointment Date/Time Appointment Type Appointme nt Facility Name Oct 16, 2024 11:30 AM AMBULATORY - REHAB MEDICIN E [facility] [place] [facility] Oct 19, 2024 04:00 PM AMBULATORY - REHAB MEDICIN E [facility] [place] [facility] Oct 20, 2024 09:30 AM AMBULATORY - MEDICINE [facility] [place] [facility] Oct 27, 2024 02:30 PM AMBULATORY - SURGERY [facility] Dec 01, 2024 03:00 PM AMBULATORY - MEDICINE [facility] [place] [facility] Jan 04, 2025 10:30 AM AMBULATORY - MEDICINE [place] [facility] [place] [facility] Jan 19, 2025 11:00 AM AMBULATORY - MEDICINE [facility] Active, Pending, and Scheduled Orders This section includes a listing of several types of active, pending, and scheduled orders, including clinic medications orders, diagnostic test orders, procedure orders and consult orders; where the start date of the order is 45 days before the date of the Encounter or 45 days after the date of theEncounter. The data comes from all [facility]. Test Date/Time Test Type Test Details Facility Name Oct 06, 2024 03:06 PM Consult Order COMMUNITY CARE-GEN SURGERY Cons Card Grinder's Choice [facility] [place] [facility] Oct 06, 2024 03:09 PM Consult Order COMMUNITY CARE-PHYSICAL THERAPY Cons [facility] [place] [facility] Oct 12, 2024 06:55 AM Consult Order PODIATRIC SURGERY/ULCER CONSULT IF NEWT Cons Card [facility] Choice [facility] [place] [facility] Oct 16, 2024 12:00 AM Laboratory - Chemi stry Order CALCIUM, 24HR PANEL 24 HR URINE SP [facility] Lab Results: +/- 30 days [...] Range Comment Sep 30, 2024 03:15 PM [facility] VITAMIN B12 Specimen Type: SERUM No comment entered. Ordering Provider: MAR HANSON Report Released Date/Time: Sep 30, 2024 02:42 PM Reporting Lab: [address] [address] Performing Lab: [address] [address] VITAMIN B12 332 pg/mL 200-900 Sep 30, 2024 03:15 PM [facility] MAGNESIUM Specimen Type: SERUM No comment entered. Ordering Provider: MAR HANSON Report Released Date/Time: Sep 30, 2024 02:41 PM Reporting Lab: [address] [address] Performing Lab: [address] [address] MAGNESIUM 1.7 mg/dL 1.6-2.6 Social History: Smoking [...] PM VA-TOBACCO NEVER U SED OTHER TYPE [facility] Tobacco Use History This section includes a history of the smoking, or tobacco-related health factors, that were collected on or before the date of the Encounter. The data comes from the [place] facility where the Encounter took place. Date/Time Smoking Status/Tobacco Use Comment F acility Aug 03, 2024 01:00 PM VA-TOBACCO NEVER U SED OTHER TYPE [facility] [place] [facility] Aug 26, 2023 10:00 AM VA-TOBACCO FORMER USER [facility] [place] [facility] Aug 26, 2023 10:00 AM VA-TOBACCO QUIT 15 YRS OR MORE [facility] [place] [facility] Apr 11, 2022 11:00 AM VA-TOBACCO FORMER USER [facility] [place] [facility] Apr 11, 2022 11:00 AM VA-TOBACCO QUIT 15 YRS OR MORE [facility] Advance Directives: All historical and current Section [...] Sep 27, 2005 ADVANCE DIRECTIVE SHARLENE SIDHU [facility] Sep 10, 2005 ADVANCE DIRECTIVE [...] OR MORE VIE WS (RIGHT): ELVIN REYNA [id number] -[phone] M Exm Date: SEP 23, 2024@11:21 Req Phys: GANGA DAVID Pat Loc: [facility] PACT FLOAT PA (Req'g Loc Img Loc: [facility] 1 Service: Unknown [facility] [address] (Case [id number] COMPLETE) FOOT 3 OR MORE VIEWS (RIGHT) (RAD Detailed) CPT:04837 Proc Modifiers : RIGHT CPT Modifiers : RT RIGHT SIDE Reason for Study: pre-podiatric evaluation Clinical History: Report Status: Verified Date Reported: SEP 23, 2024 Date Verified: SEP 23, 2024 Sewing Machine Maintenance Mechanic E-Sig:/ES/KRISTYN BERKOWITZ JR Report: Study: Weight-bearing AP, [...] Primary Interpreting Staff: KRISTYN BERKOWITZ JR, Radiologist (Sewing Machine Maintenance Mechanic) /KRISTYN VASQUES JR [facility] Encounter Notes: All associated encounter notes This section contains the clinical notes associated to the Encounter. Date/Time Encounter Note(s) Provider Source Oct 15, 2024 12:55 PM OPTOMETRY NOTE: LOCAL TITLE: OPTOMETRY NOTE STANDARD TITLE: OPTOMETRY NOTE DATE OF NOTE: OCT 15, 2024@12:55 ENTRY DATE: OCT 15, 2024@12:55:56 AUTHOR: JORGE ARCHER EXP COSIGNER: URGENCY: STATUS: COMPLETED OPTOMETRY NOTE Has ADDENDA please assist in ordering duplicate glasses: RX INFORMATION OD +0.25 -3.75 X175 Add:+1.50 Pzm:0.00 Dir: Prz2:0.00 Dir2: OS 0.00 -4.00 X5 Add:+1.50 Pzm:0.00 Dir: Prz2:0.00 Dir2: FITTING INFORMATION FPD: NPD: [place]:R:34.0 L:34.5 SEG HT:R:23 L:23 Tint:None Shade:None VA Billable Items FRAME: BIG TWIST TORTOISE 56-18-145 Right Lens: 1.67 VA PROGRESSIVE 1.67 HIGH INDEX Left Lens: 1.67 VA PROGRESSIVE 1.67 HIGH INDEX KLEAR ANTI-REFLECTIVE COATING --- RX INFORMATION OD +0.25 -3.75 X175 Add:+1.50 Pzm:0.00 Dir: Prz2:0.00 Dir2: OS 0.00 -4.00 X5 Add:+1.50 Pzm:0.00 Dir: Prz2:0.00 Dir2: FITTING INFORMATION FPD: NPD: [place]:R:34.0 L:34.5 SEG HT:R:23 L:23 Tint:BROWN Shade:3 VA Billable Items FRAME: BIG TWIST TORTOISE 56-18-145 Right Lens: 1.67 VA PROGRESSIVE 1.67 HIGH INDEX Left Lens: 1.67 VA PROGRESSIVE 1.67 HIGH INDEX /roberto/ JORGE ARCHER OD Health Safety Instructor Signed: 10/15/2024 12:57 Receipt Acknowledged By: 10/16/2024 09:37 /roberto/ EVA LYNNE OPTOMETRY TECH 10/16/2024 ADDENDUM STATUS: COMPLETED Optometry Health Teacher Ballet ordered patient 2 pair(s) of PAL eyeglasses on 10/15/2024 as directed by provider. OPT HT entered consult(s) for order on behalf of provider. /roberto/ EVA LYNNE OPTOMETRY TECH Signed: 10/16/2024 09:39 JORGE ARCHER [facility] [place] [facility] Oct 15, 2024 07:48 AM OPTOMETRY NOTE: LOCAL TITLE: OPTOMETRY NOTE STANDARD TITLE: OPTOMETRY NOTE DATE OF NOTE: OCT 15, 2024@07:48 ENTRY DATE: OCT 15, 2024@07:48:54 AUTHOR: GEOVANNY HAIRSTON EXP COSIGNER: JORGE ARCHER URGENCY: STATUS: COMPLETED OPTOMETRY NOTE Has ADDENDA Active problems - Computerized Problem List is the source for the followin. Kidney stone 2. Gallbladder polyp 3. Pain in right arm 4. 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 Sleep apnea 7. Overweight 8. GERD - Gastro-Esophageal Reflux Disease ([facility] [[email or web address]] [phone]) 9. Anxiety ([facility] [[email or web address]] [id number]) 10. Hyperlipidemia ([facility] [[email or web address]] [id number]) 11. Fatty liver 12. Family history of diabetes mellitus Active Outpatient Medications (including Supplies): Active Outpatient Medications Status 1) CALCIUM 200MG (CA CITRATE-950MG) TAB TAKE THREE TABLETS BY ACTIVE MOUTH TWICE DAILY Indication: FOR CALCIUM SUPPLEMENTATION 2) CHOLECALCIF 50MCG (D3-2,000UNIT) TAB TAKE ONE TABLET BY ACTIVE MOUTH ONCE DAILY FOR VITAMIN SUPPLEMENTATION Indication: FOR VITAMIN D DEFICIENCY 3) MAGNESIUM OXIDE 420MG TAB TAKE ONE TABLET BY MOUTH ONCE ACTIVE DAILY Indication: FOR MAGNESIUM SUPPLEMENTATION 4) MUPIROCIN 2% OINT APPLY THIN LAYER TOPICALLY TWICE DAILY ACTIVE Indication: FOR SKIN INFECTION 5) OMEPRAZOLE 20MG EC CAP TAKE TWO CAPSULES BY MOUTH ONCE DAILY ACTIVE (NOTE DOSE) Indication: FOR EXCESSIVE PRODUCTION OF STOMACH ACID Active Non-VA Medications Status 1) Non-VA OTHER CAP/TAB RACHANA WORKZ MUSHROOM COMPLEX BY MOUTH ACTIVE ONCE DAILY 6 Total Medications Allergies: Patient has answered NKA All medications including those prescribed by outside VA's, community providers, and all OTC meds were reviewed and reconciled with patient to the best of their abilities. This 49 year old MALE is seen today for comprehensive eye exam CORRIE: NOV 26 2023 (problem focused) MAY 09 2023(CEE) Chief Complaint: pt reports lid issues have resolved since his visit in November. Pt reports vison has been good, no complaints with current pair. OHx: 1. Regular Astigmatism and Presbyopia 2. Blepharitis 3. MGD OU Ocular Medications: (-) Pain: (-) LION: (-) Diplopia: (-) Flashes: (+) Floaters: longstanding OD>OS (-) Amaurosis Fugax/Tia's: (-) Eye Injury: (-) Eye Surgery: (-) TBI FOHx: (-) Glaucoma/ARMD/Blindness VITALS (most recent, as listed in the electronic record): B/P: 134/84 (09/30/2024 14:28) Pulse: 98 (09/30/2024 14:28) Temperature: 98 F [36.7 C] (09/30/2024 14:28) Weight: 234 lb [106.14 kg] (09/30/2024 14:28) Height: 66 in [167.6 cm] (09/03/2024 15:20) BMI: BMI: 37.8 PERTINENT LABS: HEMOGLOBIN A1C TREND Collection DT Spec HGBA1c 08/26/2023 09:57 BLOOD 5.0 02/28/2023 08:17 BLOOD 4.9 08/27/2022 11:44 BLOOD 5.2 04/11/2022 12:06 BLOOD 4.9 (-) Smoker/Length of Time/PPD: Current Rx with last BCVA: OD: +0.25 -3.75 x175 20/20 OS: pl -4.00 x005 20/20 Add: +1.50 DVA ( )sc (X)cc - phoropter OD: 20/20 OS: 20/20 Pupils: PERRL (-)APD EOMs: SAFE OU, (-)Pain/Diplopia CVF (facial, peripheral): FTFC OU Subjective Refraction: OD: +0.25 -3.75 x175 20/20 OS: pl -4.00 x005 20/20 Add: +1.75 All the above performed by student, reviewed by attending Anterior segment: Performed by student, repeated by attending * Lids: papilloma COLLEEN Conj: white and quiet OU Cornea: clear OU AC: D&Q OU Angles: 4x4 OU Iris: flat and clear OU Lens: clear OU Tonometry: Performed by student, reviewed by attending * [X] GAT [ ] iCare [] Terry OD 19 mmHg OS 20 mmHg Time: 10:18am Last IOP OD 17 mmHg OS 18 mmHg Time: 3:20pm Fundus exam: Dilated: XXXX 10:20am Non dilated: Dilating Drops: 1GTT 1 % Tropicamide OU & 1GTT 2.5% Phenylephrine OU (Pt. ed. on side effects, dilation warning given and verbal consent obtained) Patient advised not to drive if they feel they have any symptoms which could affect their ability to drive safely. Patient advised not to engage in any activities which could put themselves or others at risk if they feel they have any symptoms which could affect their ability to perform those activities safely. Performed by student, repeated by attending * Vit: clear OU C/D: 0.50/0.50 OD, 0.50/0.50 OS rim tissue is pink and healthy OU Macula: flat and clear OU PPole: flat and clear OU small CR variation temporally OD A/V: 2/3 OU Vessels: normal caliber OU Periph: flat and attached, (-) holes,tears, or attachments Assessment/Plan: 1. Regular Astigmatism OU and presbyopia OU - Pt. ed. on todays findings - Ordering duplicate frames for (PAL- Clear and Sun(Brown #3)no longer wants transitions) - Monitor 2. Dilated Ocular health; unremarkable OU - unremarkable health findings for today's examination - Monitor Return to Clinic 24 months or earlier PRN /es/ BECKY HAIRSTON OPTOMETRY STUDENT Signed: 10/15/2024 16:03 /es/ JORGE ARCHER OD Health Safety Instructor Cosigned: 10/15/2024 16:35 10/15/2024 ADDENDUM STATUS: COMPLETED The optometry product marketing intern participated in this exam, I saw this in conjunction with the optometry student. The entrance tests and refraction were performed by the student and reviewed by me. I personally met with the patient, confirmed the history, complaints and the student's findings, and performed slit lamp and fundus evaluation as indicated. I reviewed and agree with the stated findings, assessment and plan. I have added/edited the documentation to reflect my exam findings and changes to the assessment and plan. patient offered and declined printed medication list Medication Reconciliation: Outpatient: Has the patient been [...] JLV. Allergies/ADRs (Tool #5) FACILITY ALLERGY/ADR -------- [facility] NO KNOWN ALLERGIES [facility] NO KNOWN ALLERGIES [facility] NO KNOWN ALLERGIES [facility] [place] [facility] No Known Allergies [facility] Med Recon Dali (Tool #1) INCLUDED IN THIS LIST: Alphabetical list of active outpatient prescriptions dispensed from this [place] (local) and dispensed from another [place] or [facility] facility (remote) as well as inpatient orders (local pending and active), local clinic medications, locally documented non-VA medications, and local prescriptions that have or been discontinued in the past 90 days. Non-VA Meds Last Documented On: Jul 23, 2024 NOTE The display of VA prescriptions dispensed from another [place] or [facility] facility (remote) is limited to active outpatient prescription entries matched to National Drug File at the originating site and may not include some items such as investigational drugs, compounds, etc. NOT INCLUDED IN THIS LIST: Medications self-entered by the patient into personal health records (i.e. [employer] [place]) are NOT included in this list. Non-VA medications documented outside this [place], remote inpatient orders (regardless of status) and remote clinic medications are NOT included in this list. The patient and provider must always discuss medications the patient is taking, regardless of where the medication was dispensed or obtained. OUTPT AZELASTINE 137MCG/SPRAY 200D NASAL INHL (Status = Discontinued) SPRAY 1 SPRAY INTO EACH NOSTRIL ONCE DAILY FOR SEASONAL RUNNY NOSE Rx# [id number] Last Released: 01/01/24 Qty/Days Supply: 09/03 Rx Expiration Date: 01/01/25 Refills Remainin Indication: FOR SEASONAL RUNNY NOSE OUTPT CALCIUM 200MG (CA CITRATE-950MG) TAB (Status = Active) TAKE THREE TABLETS BY MOUTH TWICE DAILY FOR CALCIUM SUPPLEMENTATION Rx# [id number] Last Released: 09/14/24 Qty/Days Supply: 600/90 Rx Expiration Date: 09/04/25 Refills Remainin Indication: FOR CALCIUM SUPPLEMENTATION OUTPT CHOLECALCIF 50MCG (D3-2,000UNIT) TAB (Status = Active) TAKE ONE TABLET BY MOUTH ONCE DAILY FOR VITAMIN SUPPLEMENTATION Rx# [id number] Last Released: 08/21/24 Qty/Days Supply: 100/90 Rx Expiration Date: 08/20/25 Refills Remainin Indication: FOR VITAMIN D DEFICIENCY OUTPT CIPROFLOXACIN HCL 500MG TAB (Status = Discontinued) TAKE ONE TABLET BY MOUTH TWICE DAILY FOR INFECTION Rx# [id number] Last Released: 08/06/24 Qty/Days Supply: 10 Rx Expiration Date: 09/05/24 Refills Remainin OUTPT DM 10/GUAIFENESN 100MG/5ML (AF & SF) LIQ (Status = Discontinued) TAKE 5 MLS BY MOUTH EVERY 6 HOURS NEEDED FOR COUGH Rx# [id number] Last Released: 04/29/24 Qty/Days Supply: 240/10 Rx Expiration Date: 04/30/25 Refills Remainin Indication: FOR COUGH OUTPT MAGNESIUM OXIDE 420MG TAB (Status = Active) TAKE ONE TABLET BY MOUTH ONCE DAILY FOR MAGNESIUM SUPPLEMENTATION Rx# [id number] Last Released: Qty/Days Supply: 90 Rx Expiration Date: 10/15/25 Refills Remainin Indication: FOR MAGNESIUM SUPPLEMENTATION OUTPT MUPIROCIN 2% OINT (Status = Active) APPLY THIN LAYER TOPICALLY TWICE DAILY FOR SKIN INFECTION Rx# [id number] Last Released: 09/30/24 Qty/Days Supply: 44/7 Rx Expiration Date: 10/30/24 Refills Remainin Indication: FOR SKIN INFECTION OUTPT OMEPRAZOLE 20MG EC CAP (Status = Discontinued) TAKE ONE CAPSULE BY MOUTH ONCE DAILY Rx# [id number] Last Released: 05/09/24 Qty/Days Supply: 90/90 Rx Expiration Date: 11/08/24 Refills Remainin Indication: FOR EXCESSIVE PRODUCTION OF STOMACH ACID OUTPT OMEPRAZOLE 20MG EC CAP (Status = Active) TAKE TWO CAPSULES BY MOUTH ONCE DAILY FOR EXCESSIVE PRODUCTION OF STOMACH ACID (NOTE DOSE) Rx# [id number] Last Released: 07/27/24 Qty/Days Supply: 180/90 Rx Expiration Date: 07/24/25 Refills Remainin Indication: FOR EXCESSIVE PRODUCTION OF STOMACH ACID Non-VA OTHER CAP/TAB TAKE RACHANA WORKZ MUSHROOM COMPLEX BY MOUTH ONCE DAILY Jun 18, 2024 Patient wants to buy from Non-VA pharmacy. For immunity, and energy SUPPLIES /amanda ARCHER OD Health Safety Instructor Signed: 10/15/2024 16:35 RAHEEL HAIRSTON CNTRBryce [facility] [place] [facility]
--- OUTSIDE RECORDS SUMMARY | 2024-10-20 10:11 | XMS_ITS ---
Author Name [facility] [place] Organization [place] Address [address] [place] [address] Care Team Providers Care Construction Director Name Role Phone LORETTA HANSON Primary [...] [place] Aug 05, 2021 01 [id number] ELVIN WALSH PATIENT Selected Encounter This section includes the information on record at [place] for the Encounter. Date/Time Encounter Type Encounter Description Reason Provider Source Oct 05, 2024 03:00 PM OFFICE O/P EST LOW 20 MIN PODIATRY ICD-10-CM M77.41 Metatarsalgia , right foot SALAS KONG Zahra Encounter Template Text not used by [place] Assessments - Encounter Diagnoses This section includes the primary and secondary diagnoses documented for the Encounter. Date/Time Primary/Secondary Diagnosis Diagnosis Name Provider Source Oct 05, 2024 04:02 PM PRIMARY Metatarsalgia, right foot SALAS KONG [place] [facility] [place] [place] [facility] Oct 05, 2024 04:02 PM SECONDARY Nail disorder, unspecified SALAS KONG DE CNT [facility] [facility] Plan of Treatment: Future Appointments (+ 6 months) and Future Tests (+/- 45 days) The Plan of Treatment section includes future care activities for the patient from all [place] [facility]. This section includes future appointments [...] 02:15 PM AMBULATORY - REHAB MEDICIN E [place] [facility] [place] [facility] Oct 15, 2024 10:00 AM AMBULATORY - MEDICINE DE C [facility] [place] [facility] Oct 16, 2024 11:30 AM AMBULATORY - REHAB MEDICIN E [place] [facility] [place] [facility] Oct 19, 2024 04:00 PM AMBULATORY - REHAB MEDICIN E [place] [facility] [place] [facility] Oct 20, 2024 09:30 AM AMBULATORY - MEDICINE DE C [place] [place] [facility] Oct 27, 2024 02:30 PM AMBULATORY - SURGERY [place] Dec 01, 2024 03:00 PM AMBULATORY - MEDICINE [place] [facility] [place] [facility] Jan 04, 2025 10:30 AM AMBULATORY - MEDICINE DE C [facility] [place] [facility] Jan 19, 2025 11:00 AM AMBULATORY - MEDICINE [facility] [place] [facility] Active, Pending, and Scheduled Orders This section includes a listing of several types of active, pending, and scheduled orders, including clinic medications orders, diagnostic test orders, procedure orders and consult orders; where the start date of the order is 45 days before the date of the Encounter or 45 days after the date of theEncounter. The data comes from all [facility]. Test Date/Time Test Type Test Details Facility Name Oct 06, 2024 03:06 PM Consult Order COMMUNITY CARE-GEN SURGERY Cons Social Scientist's Choice [place] [facility] [place] [facility] Oct 06, 2024 03:09 PM Consult Order COMMUNITY CARE-PHYSICAL THERAPY Cons Social Scientist's Choice [facility] Oct 12, 2024 06:55 AM Consult Order PODIATRIC SURGERY/ULCER CONSULT IFC NEWT Cons Social Scientist's Choice [facility] [place] [facility] Oct 16, 2024 12:00 AM Laboratory - Chemi stry Order CALCIUM, 24HR PANEL 24 HR URINE SP [facility] [place] [facility] Lab Results: +/- 30 [...] Range Comment Sep 30, 2024 03:15 PM [facility] VITAMIN B12 Specimen Type: SERUM No comment entered. Ordering Provider: MAR HANSON Report Released Date/Time: Sep 30, 2024 02:42 PM Reporting Lab: [facility] [address] [facility] [id number] Performing Lab: [address] [address] VITAMIN B12 332 pg/mL 200-900 Sep 30, 2024 03:15 PM [facility] MAGNESIUM Specimen Type: SERUM No comment entered. Ordering Provider: MAR HANSON Report Released Date/Time: Sep 30, 2024 02:41 PM Reporting Lab: [facility] [address] [facility] [address] Performing Lab: [address] [address] MAGNESIUM 1.7 mg/dL 1.6-2.6 Social History: Smoking [...] 01:00 PM VA-TOBACCO NEVER U SED CIGARETTES [facility] Tobacco Use History This section includes a history of the smoking, or tobacco-related health factors, that were collected on or before the date of the Encounter. The data comes from the [place] facility where the Encounter took place. Date/Time Smoking Status/Tobacco Use Comment F acility Aug 03, 2024 01:00 PM VA-TOBACCO NEVER U SED OTHER TYPE [facility] Aug 26, 2023 10:00 AM VA-TOBACCO FORMER USER [facility] Aug 26, 2023 10:00 AM DE-TOBACCO QUIT 15 YRS OR MORE [facility] Apr 11, 2022 11:00 AM VA-TOBACCO FORMER USER DE [facility] Apr 11, 2022 11:00 AM DE-TOBACCO QUIT 15 YRS OR MORE [facility] [place] [facility] Advance Directives: All historical and current [...] TON SARAVIA Sep 27, 2005 ADVANCE DIRECTIVE SHRALENE SIDHU [facility] Sep 10, 2005 ADVANCE DIRECTIVE DISCUSSION FRANCE RODRIGEZ [facility] Aug 14, 2004 [...] 3 OR MORE VIEWS (RIGHT): ELVIN REYNA [id number] -1975 M Exm Date: SEP 23, 2024@11:21 Req Phys: GANGA DAVID Loc: [facility] PACT FLOAT PA (Req'g Loc Img Loc: [facility]/BUILDING 1 Service: Unknown [place], [place] (Case 107 COMPLETE) FOOT 3 OR MORE VIEWS (RIGHT) (RAD Detailed) CPT:74683 Proc Modifiers : RIGHT CPT Modifiers : RT RIGHT SIDE Reason for Study: pre-podiatric evaluation Clinical History: Report Status: Verified Date Reported: SEP 23, 2024 Date Verified: SEP 23, 2024 Electrician Maintenance E-Sig:/ES/KRISTYN BERKOWITZ JR Report: Study: Weight-bearing AP, [...] Primary Interpreting Staff: KRISTYN BERKOWITZ JR, Radiologist (Electrician Maintenance) /EAD KRISTYN BERKOWITZ JR [facility] Sep 14, 2024 10:33 AM KIDNEY AND BLADDER ULTRASOUND: ELVIN REYNA [id number] -1975 M Exm Date: SEP 14, 2024@10:33 Req Phys: LORETTA HANSON Loc: [facility] PACT 7 BLAST FURNACE KEEPER (Req'g Loc) Img Loc: ULTRASOUND Service: Unknown [place] (Case 41 COMPLETE) ULTRASOUND KIDNEYS (US Detailed) CPT:74990 Reason for Study: follow up (Case 42 COMPLETE) ULTRASOUND URINARY BLADDER (US Detailed) CPT:53902 Clinical History: Some ultrasound tests require a prep. recent stone left ureter, stent removed on 08/03, seeking this to be done six weeks from now. Report Status: Verified Date Reported: SEP 14, 2024 Date Verified: SEP 14, 2024 Electrician Maintenance E-Sig:/ES/KRISTYN BERKOWITZ JR Report: Study: Genitourinary ultrasound. [...] BERKOWITZ JR, Radiologist (Raul) /KRISTYN VASQUES JR [facility] Encounter Notes: All associated encounter notes This section contains the clinical notes associated to the Encounter. Date/Time Encounter Note(s) Provider Source Oct 05, 2024 03:55 PM PODIATRY NOTE: LOCAL TITLE: PODIATRY NOTE STANDARD TITLE: PODIATRY NOTE DATE OF NOTE: OCT 05, 2024@15:55 ENTRY DATE: OCT 05, 2024@15:56:03 AUTHOR: SALAS KONG EXP COSIGNER: URGENCY: STATUS: COMPLETED Podiatry [facility] Follow up Provider: Salas Kong Date: OCT 05, 2024 ELVIN REYNA [address] [place] [id number] Jul 47 MALE [id number] PATIENT PHONE - Primary Care: LORETTA HANSON Follow up Visit Concern: Patient had phenol alcohol procedure in June to the medial border of the right hallux. He healed uneventfully but has been complaining of intermittent sensation and sometimes pain in the area but lacking any clinical sign of infection or healing problem. Patient was given mupirocin by his primary care in the hopes that perhaps maybe this would help but it has not. Patient confesses that he really only recognizes the problem at nighttime when he settles down to go to bed and it does not really bother him during the daytime. He has secondary complaint of some discomfort under the second metatarsal of the right foot his orthotic he has an accommodation in this area and it may be that the accommodation allows him to bear more weight than otherwise when it is actually supposed to float the metatarsal. Subjective: As per above and specifically pain is not any more than 1 or 2 out of 10 intermittent and sporadic and not constant and usually occurs only in the evening after long period of activity during the day has not seen any drainage or discharge. 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 Please check JLV. FACILITY ALLERGY/ADR -------- [facility] NO KNOWN ALLERGIES [facility] NO KNOWN ALLERGIES [facility] NO KNOWN ALLERGIES [facility] [place] [facility] No Known Allergies [facility] PE: Well-appearing NAD Neurovascular status intact Right hallux grossly normal in appearance with neurovascular status normal Evidence of medial nail ablation without any clinical sign of infection or active regrowth Some scarring seen near the posterior nailbed which is normal There is some anatomical change to the proximal nail plate adjacent to the ablation procedure. This does appear to be actual nail and not inadvertent ablation [i.e. scar tissue]. Unable to elicit any discomfort express any drainage no redness swelling or erythema present Under second metatarsal patient feels pain with pressure but pressure has to be quite firm the sesamoids are not painful the joints all have full range of motion at the MPJ with no restriction crepitus or other abnormality or alignment problem Impression: -Status post nail ablation procedure right hallux with some intermittent irritation unclear what patient is sensing but very clear that there is no nail regrowth that is causing a problem and no evidence of infection lingering -There is some change in the proximal nail adjacent to it and I shared this with the patient and would like to wait and let this area grow out and see what happens -I assured the patient that if condition continues and patient is unsatisfied we will if indicated provide appropriate treatment whether it be a revision or what ever to make it right. -Modified patient's orthotic to cushion under the second metatarsal on the right foot to patient's satisfaction Plan: Patient will follow-up in 2-3 or 3 to 4 months on My [employer]et Return sooner if any fever chills nausea, [...] as results of the physical exam and regulatory consultant opinions and recommendations as sought. Alternatives [...] -The on this visit was given information [employer] service and encouraged to enroll if not already having done so. /roberto/ SALAS KONG DPM PODIATRY ATTENDING Signed: 10/05/2024 16:02 SALAS KONG DE [facility]L [facility]
--- OUTSIDE RECORDS SUMMARY | 2024-10-20 10:11 | XMS_ITS | Encounter Summary ---
Author Name [place] Organization [place] Address [address] [place] [address] Care Team Providers Care Judicial Assistant Name Role Phone LORETTA HANSON Primary [...] [place] Aug 05, 2021 01 [phone] ELVIN WALSH PATIENT Selected Encounter This section [...] PM PRIMARY 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ed counseling INES [facility] [place] [facility] Plan of Treatment: Future Appointments (+ 6 months) and Future Tests (+/- 45 days) The Plan of Treatment section includes future care activities for the patient from all [place] [facility]. This section includes future appointments and [...] [facility] May 21, 2024 11:00 AM [...] 2024 01:00 PM AMBULATORY - SURGERY RADHA [place] [facility] Sep 02, 2024 01:00 PM AMBULATORY - MEDICINE [place] [facility] Sep 03, 2024 03:00 PM AMBULATORY - MEDICINE [place] C [place] [facility] Sep 14, 2024 10:30 AM [facility]ORY - NONE [facility] Active, Pending, and Scheduled Orders This section includes a listing of several types of active, pending, and scheduled orders, including clinic medications orders, diagnostic test orders, procedure orders and consult orders; where the start date of the order is 45 days before the date of the Encounter or 45 days after the date of theEncounter. The data comes from all [place] treatment facilities. Test Date/Time Test Type Test Details Facility Name Jun 03, 2024 12:30 PM Consult Order DERMATOLOG Y/NHM (OUTPT) Cons Edi Coordinator's Choice [facility] Vital Signs: All taken on the encounter date This section contains inpatient and outpatient Vital Signs collected on the date of the Encounter. Date/Time Temperature Pulse Blood Pressure Respiratory Rate SP02 Pain Height Weight Body Mass Index Source Apr 29, 2024 01:23 PM 98.2 77 118/86 16 2 [facility] Social History: Smoking Status (Most current) and [...] 26, 2023 10:00 AM VA-TOBACCO [facility]ER [facility] Tobacco Use History This section includes a history of the smoking, or tobacco-related health factors, that were collected on or before the date of the Encounter. The data comes from the [place] facility where the Encounter took place. Date/Time Smoking Status/Tobacco Use Comment F acility Aug 26, 2023 10:00 AM [place]-TOBACCO QUIT 15 YRS OR MORE [facility] Apr 11, 2022 11:00 AM [place]-TOBACCO FORMER USER [facility] Apr 11, 2022 11:00 AM VA-TOBACCO QUIT 15 YRS OR MORE [facility] Advance Directives: All historical and [...] 10, 2005 ADVANCE DIRECTIVE DISCUSSION FRANCE RODRIGEZ [facility] Aug 14, 2004 ADVANCE DIRECTIVE DISCUSSION REGULO [...] Vet afebrile today. R: Vet to see CT provider /roberto/ Ingrid Chamorro MSN RN CNL Primary Care RN Signed: 04/29/2024 14:00 INGRID CHAMORRO [facility]
--- OUTSIDE RECORDS SUMMARY | 2024-10-20 10:11 | XMS_ITS | Encounter Summary ---
Author Name [place] Organization [place] Address [address] [place] [address] Care Team Providers Care Plastics Patternmaker Name Role Phone LORETTA HANSON Primary Care [...] [place] Aug 05, 2021 01 [id number] ELVIN WALSH PATIENT Selected Encounter This section includes the information on record at [place] for the Encounter. Date/Time Encounter Type Encounter Description Reason Provider Source Apr 29, 2024 02:00 PM OFFICE O/P EST LOW 20 MIN PRIMARY CARE/MEDICINE ICD-10-CM J06.9 Acute upper respiratory infection, unspecified GANGA DAVID Zahra Encounter Template Text not used by [place] Assessments - Encounter Diagnoses This section includes the primary and secondary diagnoses documented for the Encounter. Date/Time Primary/Secondary Diagnosis Diagnosis Name Provider Source Apr 29, 2024 02:16 PM PRIMARY Acute upper respiratory infection, unspecified GANGA DAVID [place] [facility] [place] [facility] Plan of Treatment: Future Appointments (+ 6 months) and Future Tests (+/- 45 days) The Plan of Treatment section includes future care activities for the patient from all [place] [facility]. This section includes future appointments and future orders which are active, pending or scheduled. Future Appointments This section includes appointments that were scheduled to occur 6 months from the date of the Encounter, up to a maximum of 20 appointments. The data comes from all [place] treatment facilities. Appointment Date/Time Appointment Type Appointme nt Facility Name May 13, 2024 09:30 AM AMBULATORY - MEDICINE [place] [facility] [place] [facility] May 21, 2024 11:00 AM AMBULATORY - MEDICINE [facility] [place] [facility] May 22, 2024 01:30 PM AMBULATORY - MEDICINE [facility] [place] [facility] May 29, 2024 02:00 PM AMBULATORY - MEDICINE [facility] [place] [facility] Jun 05, 2024 10:00 AM AMBULATORY - MEDICINE [facility] [place] [facility] Jun 05, 2024 02:00 PM AMBULATORY - MEDICINE [facility] [place] [facility] Jun 05, 2024 02:45 PM AMBULATORY - NONE [facility] [facility] Jun 17, 2024 08:00 AM AMBULATORY - PSYCHIATRY [facility] [facility] Jun 18, 2024 08:30 AM AMBULATORY - MEDICINE [facility] [place] [facility] Jun 18, 2024 11:00 AM AMBULATORY - PSYCHIATRY [facility] [place] [facility] Jun 26, 2024 09:00 AM AMBULATORY - MEDICINE [facility] C [facility] [place] [facility] Jul 13, 2024 09:00 AM AMBULATORY - MEDICINE [facility] C [facility] [place] [facility] Jul 23, 2024 11:30 AM AMBULATORY - MEDICINE [facility] [place] [facility] Aug 03, 2024 01:00 PM AMBULATORY - MEDICINE [facility] [place] [facility] Aug 06, 2024 02:30 PM AMBULATORY - MEDICINE [facility] [place] [facility] Aug 14, 2024 11:30 AM AMBULATORY - MEDICINE [facility] [place] [facility] Sep 02, 2024 01:00 PM AMBULATORY - SURGERY [facility] [place] [facility] Sep 02, 2024 01:00 PM AMBULATORY - MEDICINE [place] C [place] [facility] Sep 03, 2024 03:00 PM AMBULATORY - MEDICINE [place] C [facility] [place] [facility] Sep 14, 2024 10:30 AM AMBULATORY - N[facility] Active, Pending, and Scheduled Orders This section includes a listing of several types of active, pending, and scheduled orders, including clinic medications orders, diagnostic test orders, procedure orders and consult orders; where the start date of the order is 45 days before the date of the Encounter or 45 days after the date of theEncounter. The data comes from all [place] treatment facilities. Test Date/Time Test Type Test Details Facility Name Jun 03, 2024 12:30 PM Consult Order DERMATOLOG Y/NHM (OUTPT) Cons Recreation Programmer's Choice [facility] Vital Signs: All taken on the encounter date This section contains inpatient and outpatient Vital Signs collected on the date of the Encounter. Date/Time Temperature Pulse Blood Pressure Respiratory Rate SP02 Pain Height Weight Body Mass Index Source Apr 29, 2024 01:23 PM 98.2 77 118/86 16 2 [facility] Social History: Smoking Status (Most [...] Facil ity Aug 26, 2023 10:00 AM [place]-TOBACCO QUIT 15 YRS OR MORE [facility] Tobacco Use History This section includes a history of the smoking, or tobacco-related health factors, that were collected on or before the date of the Encounter. The data comes from the [place] facility where the Encounter took place. Date/Time Smoking Status/Tobacco Use Comment F acility Aug 26, 2023 10:00 AM [place]-TOBACCO QUIT 15 YRS OR MORE [facility] Apr 11, 2022 11:00 AM AK-TOBACCO FORMER USER [facility] WSN [facility] Apr 11, 2022 11:00 AM AK-TOBACCO QUIT 15 YRS OR MORE [facility] [...] this document. The data comes from all [place] facilities. Date Advance Directives Provider Source May 16, 2011 ADVANCE DIRECTIVE DISCUSSION TON SARAVIA Sep 27, 2005 ADVANCE DIRECTIVE SHARLENE SIDHU [facility] Sep 10, 2005 ADVANCE DIRECTIVE DISCUSSION FRANCE RODRIGEZ [facility] Aug 14, 2004 ADVANCE DIRECTIVE DISCUSSION [facility] [place] [place] Encounter Notes: All associated encounter notes This section contains the clinical notes associated to the Encounter. Date/Time Encounter Note(s) Provider Source Apr 29, 2024 01:24 PM PHYSICIAN DIRECTOR OF RESTAURANT NOTE: LOCAL TITLE: PA NOTE STANDARD TITLE: PHYSICIAN DIRECTOR OF RESTAURANT NOTE DATE OF NOTE: APR 29, 2024@13:24 [...] Gastro-Esophageal Reflux Dis 04/11/2022 LORETTA HANSON Anxiety ([facility] [id number]) F41.9 04/11/2022 LORETTA HANSON Hyperlipidemia ([facility] [id number]) E78.5 04/11/2022 LORETTA HANSON Fatty liver K76.0 [...] Acute upper Respiratory Infection, unspecified as above [place] able to verbalize understanding of plan of care and agrees. >> MEDICATIONS Reviewed and reconciled with /es/ GANGA GIVENS MS,PA-C PHYSICIAN DIRECTOR OF RESTAURANT Signed: 04/29/2024 14:21 GANGA DAVID RENATO [place] CNTL [facility]
--- OUTSIDE RECORDS SUMMARY | 2024-10-20 10:12 | XMS_ITS | Encounter Summary ---
Author Name [facility] [place] [facility] [place] Organization [facility] [place] [facility] [place] Address [address] [place] [address] Care Team Providers Care Hazardous Substances Scientist Name Role Phone LORETTA HANSON Primary Care [...] Policy Gonzalez [facility] MEDICAID [facility] Aug 05, 2021 01 [id number] ELVIN WALSH PATIENT Selected Encounter This section includes the information on record at [place] for the Encounter. Date/Time Encounter Type Encounter Description Reason Provider Source Dec 03, 2023 01:30 PM THERAPEUTIC EXERCISES OCCUPATIONAL THERAPY ICD-10-CM M79.601 Pain in right arm [facility] Zahra Encounter Template Text not used by [place] Assessments - Encounter Diagnoses This section includes the primary and secondary diagnoses documented for the Encounter. Date/Time Primary/Secondary Diagnosis Diagnosis Name Provider Source Dec 03, 2023 03:54 PM PRIMARY Pain in right [facility] Plan of Treatment: Future Appointments (+ 6 months) and Future Tests (+/- 45 days) The Plan of Treatment section includes future care activities for the patient from all [place] [facility]. This section includes future appointments and future [...] C [facility] [place] [facility] December 10, 2023 03:00 PM AMBULATORY - REHAB MEDICIN E [facility] [place] [facility] December 17, 2023 03:00 PM AMBULATORY - REHAB MEDICIN E [facility] [place] [facility] December 24, 2023 03:00 PM AMBULATORY - REHAB MEDICIN E [facility] [place] [facility] January 01, 2024 11:00 AM AMBULATORY - MEDICINE [facility] [place] [facility] Jan 07, 2024 09:30 AM AMBULATORY - REHAB MEDICIN E [facility] [place] [facility] Jan 08, 2024 09:00 AM AMBULATORY - PSYCHIATRY [facility] [place] [facility] Jan 21, 2024 10:30 AM AMBULATORY - MEDICINE VA [facility] [place] [facility] Jan 21, 2024 11:30 AM AMBULATORY - MEDICINE VA [facility] [place] [facility] Apr 24, 2024 02:00 PM AMBULATORY - MEDICINE VA [facility] [place] [facility] Apr 29, 2024 01:00 PM AMBULATORY - MEDICINE [facility] [facility] Apr 29, 2024 02:00 PM AMBULATORY - MEDICINE VA [facility] [place] [facility] May 13, 2024 09:30 AM AMBULATORY - MEDICINE [facility] [place] [facility] May 21, 2024 11:00 AM AMBULATORY - MEDICINE [facility] [place] [facility] May 22, 2024 01:30 PM AMBULATORY - MEDICINE [facility] [place] [facility] May 29, 2024 02:00 PM AMBULATORY - [...] Comment Nov 11, 2023 09:54 AM [facility] [id number] PGx Specimen Type: BLOOD Comment: SPECIMEN SHIPPED ON MANIFEST [id number] Ordering Provider: MAGGIE GALVAN Report Released Date/Time: Sep 13, 2023 12:46 PM Reporting Lab: [address] [address] Performing Lab: [facility] Social History: Smoking Status (Most current) [...] 2023 10:00 AM VA-TOBACCO FORMER USER [facility] Tobacco Use History This section includes a history of the smoking, or tobacco-related health factors, that were collected on or before the date of the Encounter. The data comes from the [place] facility where the Encounter took place. Date/Time Smoking Status/Tobacco Use Comment F acility Aug 26, 2023 10:00 AM AR-TOBACCO QUIT 15 YRS OR MORE [facility] Apr 11, 2022 11:00 AM VA-TOBACCO FORMER USER [facility] Apr 11, 2022 11:00 AM AR-TOBACCO QUIT 15 YRS OR MORE [facility] Advance Directives: All historical and current Section Date Range: From patient's date of to the date document was created. This section includes ALL of a patient's completed or amended VA Advance and Rescinded Directives. The entries below indicate that a directive exists for the patient, but an actual copy is not included with this document. The data comes from all [place] facilities. Date Advance Directives Provider Source May 16, 2011 ADVANCE DIRECTIVE DISCUSSION [place]ON [place] Sep 27, 2005 ADVANCE DIRECTIVE NAHUMSHARLENECAMRYN [facility] Sep 10, 2005 ADVANCE DIRECTIVE DISCUSSION FRANCE RODRIGEZ [facility] Aug 14, 2004 ADVANCE DIRECTIVE DISCUSSION REG[place]OL [place] Encounter Notes: All associated [...] S: Mr. Reyna is a 48 y/o [facility] male who was referred to [...] 7. GERD - Gastro-Esophageal Reflux Disease (SCT [id number]) 8. Anxiety ([facility] [id number]) 9. Hyperlipidemia ([facility] [id number]) 10. Fatty liver 11. Family history of [...] R hand dominant. 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 hx; - Active [employer]. Hobbies; enjoys hiking, biking, walking, reading and writing. Enjoys cinema and music. Plays the [employer]. Clinical Presentation: no atrophy of rotator cuff [...] *manual therapy/mobilization to lateral delt/brachialis Access Code: [email or web address] URL: [email or web address] Date: 12/03/2023 Prepared by: [facility] Exercises - Shoulder Flexion Wall Slide [...] Signed: 12/03/2023 15:54 /es/ Loretta Hanson DNP, CHIEF PETROLEUM ENGINEER-BC, CNL Primary Care Nurse Practitioner Cosigned: 12/04/2023 07:22 Receipt Acknowledged By: 12/04/2023 12:42 /roberto/ SYDNEY PALOMARES OCCUPATIONAL THERAPY STUDENT [facility]
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
--- OUTSIDE RECORDS SUMMARY | 2024-10-20 10:12 | XMS_ITS ---
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 Date/Time Encounter Type Encounter Description Reason Provider Source Aug 03, 2024 01:00 PM OFFICE O/P EST MOD 30 MIN PRIMARY CARE/MEDICINE ICD-10-CM N20.0 Calculus of kidney LEROY HANSON AM Zahra Encounter Template Text not used by [place] Assessments - Encounter Diagnoses This section includes the primary and secondary diagnoses documented for the Encounter. Date/Time Primary/Secondary Diagnosis Diagnosis Name Provider Source Aug 03, 2024 01:31 PM PRIMARY Calculus of kidney LEROY HANSON AM [place] [facility] [place] [facility] Aug 03, 2024 01:31 PM SECONDARY Other chest pain LEROY HANSON AM [place] [facility] [place] [facility] Plan of Treatment: Future Appointments (+ 6 months) and Future Tests (+/- 45 days) The Plan of Treatment section includes future care activities for the patient from all [place] [facility]. This section includes future appointments and future orders which are active, pending or scheduled. Future Appointments This section includes appointments that were scheduled to occur 6 months from the date of the Encounter, up to a maximum of 20 appointments. The data comes from all [place] treatment facilities. Appointment Date/Time Appointment Type Appointme nt Facility Name Aug 06, 2024 02:30 PM AMBULATORY [facility] MEDICINE [facility] [place] [facility] Aug 14, 2024 11:30 AM AMBULATORY - MEDICINE [facility] [place] [facility] Sep 02, 2024 01:00 PM [facility] Sep 02, 2024 01:00 PM AM[facility]ULATORY - MEDICINE [facility] [place] [facility] Sep 03, 2024 03:00 PM AMBULATORY - MEDICINE [facility] [place] [facility] Sep 14, 2024 10:30 AM AMBULATORY - NONE [facility] [place] [facility] Sep 28, 2024 10:30 AM AMBULATORY - MEDICINE [facility] [place] [facility] Sep 30, 2024 02:30 PM AMBULATORY - MEDICINE [facility] [place] [facility] Oct 05, 2024 03:00 PM AMBULATORY - MEDICINE [facility] [place] [facility] Oct 13, 2024 02:15 PM AMBULATORY - REHAB MEDICIN E [facility] [place] [facility] Oct 15, 2024 10:00 AM AMBULATORY - MEDICINE [facility] [place] [facility] Oct 16, 2024 11:30 AM AMBULATORY - REHAB MEDICIN E [facility] [place] [facility] Oct 19, 2024 04:00 PM AMBULATORY - REHAB MEDICIN E [facility] [place] [facility] Oct 20, 2024 09:30 AM AMBULATORY - MEDICINE [facility] [place] [facility] Oct 27, 2024 02:30 PM AMBULATORY - SURGERY [facility] Dec 01, 2024 03:00 PM [facility] Jan 04, 2025 10:30 AM [facility] Jan 19, 2025 11:00 AM AMBULAT[facility] - [facility] Active, Pending, and Scheduled Orders This section includes a listing of several types of active, pending, and scheduled orders, including clinic medications orders, diagnostic test orders, procedure orders and consult orders; where the start date of the order is 45 days before the date of the Encounter or 45 days after the date of theEncounter. The data comes from all [place] treatment facilities. Test Date/Time Test Type Test Details Facility Name Jul 23, 2024 12:00 AM Laboratory - Chemi stry Order PTH INTACT BLOOD (RED-PLAIN) SERUM SP [facility] Lab Results: +/- 30 days of [...] Range Comment Aug 10, 2024 02:45 PM [facility] OCCULT BLOOD FIT X1 SCREEN(IN-HOUSE) Specimen Type: FECES No comment entered. Ordering Provider: LEROY HANSON AM Report Released Date/Time: Apr 24, 2024 02:10 PM Reporting Lab: [facility] [address] [facility] [id number] Performing Lab: [facility] [address] [facility] [id number] OCCULT BLOOD (FIT)#1 OF 1 Negative NEG Vital Signs: All taken on the encounter date This section contains inpatient and outpatient Vital Signs collected on the date of the Encounter. Date/Time Temperature Pulse Blood Pressure Respiratory Rate SP02 Pain Height Weight Body Mass Index Source Aug 03, 2024 01:02 PM 98.5 91 136/86 16 94 6 228 37 [facility] Social History: Smoking Status (Most [...] PM VA-TOBACCO NEVER U SED OTHER TYPE [facility] Tobacco Use History This section includes a history of the smoking, or tobacco-related health factors, that were collected on or before the date of the Encounter. The data comes from the [place] facility where the Encounter took place. Date/Time Smoking Status/Tobacco Use Comment F acility Aug 03, 2024 01:00 PM VA-TOBACCO NEVER U SED OTHER TYPE [place] [facility] [place] [facility] Aug 26, 2023 10:00 AM VA-TOBACCO FORMER USER [place] [facility] [place] [facility] Aug 26, 2023 10:00 AM VA-TOBACCO QUIT 15 YRS OR MORE [facility] [place] [facility] Apr 11, 2022 11:00 AM VA-TOBACCO FORMER USER [place] [facility] [place] [facility] Apr 11, 2022 11:00 AM VA-TOBACCO QUIT 15 YRS OR MORE [facility] Advance Directives: All historical and current Section [...] Sep 27, 2005 ADVANCE DIRECTIVE SHARLENE SIDHU [facility] Sep 10, 2005 ADVANCE DIRECTIVE DISCUSSION FRANCE R[facility]RIGEZ [facility] Aug 14, 2004 ADVANCE DIRECTIVE DISCUSSION [facility] [place] Encounter Notes: All associated encounter notes This section contains the clinical notes associated to the Encounter. Date/Time Encounter Note(s) Provider Source Aug 03, 2024 01:19 PM PRIMARY CARE NURSE PRACTITIONER OUTPATIENT NOTE: LOCAL TITLE: NURSE PRACTITIONER OUTPATIENT NOTE STANDARD TITLE: PRIMARY CARE NURSE PRACTITIONER OUTPATIENT NOTE DATE OF NOTE: AUG 03, 2024@13:19 ENTRY DATE: AUG 03, 2024@13:19:23 AUTHOR: LORETTA HANSON COSIGNER: URGENCY: STATUS: COMPLETED Chief complaint: Patient is a 49 year old [place]. HPI: Pleasant male [place] here with his girlfriend for follow up. He had a Left ureteral stone, History of nephrolithiasis, Hematuria Patient was recently found to have 1.3 cm left renal stone status post shockwave lithotripsy 07/16. He had a stent placed that was removed today. He does report some neupathic sx left leg and to a lesser degree, his right leg, he feels this issue may be resolving. He also notes chest pain for the past 3 days, present now. His vital signs are ok, he is not in any active distress. He does however express concern it is his heart. We did an EKG on 07/23, NSR. I explained further work up as an outpt would not be timely given the presence of active chest pain. I suggested ER evaluation. He is in agreement. He is stable, he will go via private vehicle. Allergies: Patient has answered NKA The following VA and Non-VA meds were reconciled with patient. The patient was educated on the use of the medications including indication and side effects. Active and Recently Outpatient Medications (excluding Supplies): Active Outpatient Medications Status ====== 1) AZELASTINE 137MCG/SPRAY 200D NASAL INHL SPRAY 1 SPRAY INTO ACTIVE EACH NOSTRIL ONCE DAILY Indication: FOR SEASONAL RUNNY NOSE 2) DM 10/GUAIFENESN 100MG/5ML (AF & SF) LIQ TAKE 5 MLS BY MOUTH ACTIVE EVERY 6 HOURS NEEDED Indication: FOR COUGH 3) OMEPRAZOLE 20MG EC CAP TAKE TWO CAPSULES BY MOUTH ONCE DAILY ACTIVE (NOTE DOSE) Indication: FOR EXCESSIVE PRODUCTION OF STOMACH ACID Active Non-VA Medications Status ====== 1) Non-VA CHOLECALCIF 10MCG (D3-400UNIT) TAB 10MCG BY MOUTH ACTIVE ONCE DAILY Indication: FOR VITAMIN D DEFICIENCY 2) Non-VA OTHER CAP/TAB RACHANA WORKZ MUSHROOM COMPLEX BY MOUTH ACTIVE ONCE DAILY 3) Non-VA PROBIOTIC (CULTURELLE DIGESTIVE DAILY) CAP/TAB BY ACTIVE MOUTH 6 Total Medications Review of Systems: Constitutional: (-)for Fevers, chills, weakness, nights sweats On examination: 98.5 F [36.9 C] (08/03/2024 13:02)136/86 (08/03/2024 13:02)91 (08/03/2024 13:02)16 (08/03/2024 13:02)6 (08/03/2024 13:02)BMI: 36.9228 lb [103.42 kg] (08/03/2024 13:02) [place] is alert and oriented X3 Cardiovasc: 2plus [...] source for the followin. Kidney stone - he needs follow up bladder/renal u/s in 6 weeks, will fax report to Dr. Perez. 2. chest pain - see above. Today I spent 30 minutes on some or all of the following: chart review, history, physical examination, treatment planning, education and counseling of the patient/family/medicare sales executive, placing orders, communicating with other health care providers, completing health and wellness screenings (see below) and documentation in the electronic health record. Follow up visit upon discharge. Medication Reconciliation: Outpatient: Has the patient been [...] or non-VA provider. /roberto/ Loretta Hanson DNP, MANAGER CARDIOVASCULAR-BC, CNL Primary Care Nurse Practitioner Signed: 08/03/2024 13:28 LORETTA HANSON [place] [facility] [place] [facility] Aug 03, 2024 01:00 PM PREVENTIVE MEDICINE NURSING NOTE: LOCAL TITLE: CLINICAL REMINDERS/NURSING STANDARD TITLE: PREVENTIVE MEDICINE NURSING NOTE DATE OF NOTE: AUG 03, 2024@13:00 ENTRY DATE: AUG 03, 2024@13:00:35 AUTHOR: ANIA ROSAS EXP COSIGNER: URGENCY: STATUS: COMPLETED Suicide Screen: C-SSRS Screening [place] Suicide Severity Rating Scale (C-SSRS) screener 1. Over the past month, have you [...] required due to responses to other questions. Tobacco Use Screening: The patient has never smoked cigarettes. The patient has never used other types of tobacco. Influenza Immunization: Deferral / Refusal The patient declines to receive the recommended dose of seasonal influenza vaccine. Immunization: INFLUENZA, UNSPECIFIED FORMULATION Refusal Reason: PATIENT DECISION Patient refuses all immunization(s) in the FLU group Date Documented: 08/03/24 13:01 Alcohol Use Screen (AUDIT-C): Alcohol Screen: SCREEN [...] due to responses to other questions. /roberto/ ANIA ROSAS LPN License Practical Nurse Signed: 08/03/2024 13:01 [facility]
--- OUTSIDE RECORDS SUMMARY | 2024-10-20 10:12 | XMS_ITS ---
Author Name [facility] [place] Organization [facility] [place] Address [address] [place] [address] Care Team Providers Care Paleology Professor Name Role Phone LORETTA HANSON Primary Care [...] [place] H Aug 05, 2021 01 [phone] [id number] ELVIN WALSH PATIENT Selected Encounter This section includes the information on record at DC for the Encounter. Date/Time Encounter Type Encounter Description Reason Pro vider Source Sep 02, 2024 01:00 PM Outpatient Encounter ADMIN PAT ACTIVTIES (MASNONCT) IHE Encounter Template Text not used by DC Plan of Treatment: Future Appointments (+ 6 [...] 20 appointments. The data comes from all [place] treatment facilities. Appointment Date/Time Appointment Type Appointme nt Facility Name Sep 03, 2024 03:00 PM AMBULATORY - MEDICINE [facility] [place] [facility] Sep 14, 2024 10:30 AM AMBULATORY - NONE [facility] [place] [facility] Sep 28, 2024 10:30 AM AMBULATORY - MEDICINE [facility] [place] [facility] Sep 30, 2024 02:30 PM AMBULATORY - MEDICINE [facility] [place] [facility] Oct 05, 2024 03:00 PM AMBULATORY - MEDICINE [facility] [place] [facility] Oct 13, 2024 02:15 PM AMBULATORY - REHAB MEDICIN E [facility] [place] [facility] Oct 15, 2024 10:00 AM AMBULATORY - MEDICINE [place] [facility] [place] [facility] Oct 16, 2024 11:30 AM AMBULATORY - REHAB MEDICIN E [facility] [place] [facility] Oct 19, 2024 04:00 PM AMBULATORY - REHAB MEDICIN E [facility] [place] [facility] Oct 20, 2024 09:30 AM AMBULATORY - MEDICINE [place] [facility] [place] [facility] Oct 27, 2024 02:30 PM AMBULATORY - SURGERY [facility] Dec 01, 2024 03:00 PM AMBULATORY - MEDICINE [place] [facility] [place] [facility] Jan 04, 2025 10:30 AM AMBULATORY - MEDICINE [place] [facility] [place] [facility] Jan 19, 2025 11:00 AM AMBULATORY - MEDICINE [place] [facility] [place] [facility] Active, Pending, and [...] of theEncounter. The data comes from all [facility]. Test Date/Time Test Type Test Details Facility Name Jul 23, 2024 12:00 AM Laboratory - Chemi stry Order PTH INTACT BLOOD (RED-PLAIN) SERUM SP [facility] [place] [facility] Oct 06, 2024 03:06 PM Consult Order [facility]ITY [facility]-GEN SURGERY Cons Event Specialist Food Demonstrator's Choice [facility] [place] [facility] Oct 06, 2024 03:09 PM Consult Order COMMUNITY [facility]-PHYSICAL THERAPY Cons Event Specialist Food Demonstrator's Choice [facility] [place] [facility] Oct 12, 2024 06:55 AM Consult Order PODIATRIC SURGERY/ULCER CONSULT IFC NEWT Cons Event Specialist Food Demonstrator's Choice [place] [facility] [place] [facility] Oct 16, 2024 12:00 AM Laboratory - Chemi stry Order CALCIUM, 24HR PANEL 24 HR URINE SP [facility] Lab Results: +/- 30 days [...] Range Comment Sep 30, 2024 03:15 PM [facility] VITAMIN B12 Specimen Type: SERUM No comment entered. Ordering Provider: MAR HANSON Report Released Date/Time: Sep 30, 2024 02:42 PM Reporting Lab: [facility] [address] [address] Performing Lab: [address] [address] VITAMIN B12 332 pg/mL 200-900 Sep 30, 2024 03:15 PM [facility] MAGNESIUM Specimen Type: SERUM No comment entered. Ordering Provider: MAR HANSON Report Released Date/Time: Sep 30, 2024 02:41 PM Reporting Lab: [facility] [address] [address] Performing Lab: [facility] [address] MAGNESIUM 1.7 mg/dL 1.6-2.6 Sep 03, 2024 04:06 PM [facility] VITAMIN D (25-OH) Specimen Type: SERUM No comment entered. Ordering Provider: MAR HANSON Report Released Date/Time: Jul 23, 2024 12:38 PM Reporting Lab: [facility] [address] [address] Performing Lab: [facility] [address] VITAMIN D (25-OH) 35 ng/mL 20-50 Sep 03, 2024 04:06 PM [facility] TSH Specimen Type: SERUM No comment entered. Ordering Provider: MAR HANSON Report Released Date/Time: Jul 23, 2024 12:38 PM Reporting Lab: [facility] [address] [address] Performing Lab: [address] [address] TSH 1.59 u[IU]/mL 0.35-5.00 Sep 03, 2024 04:06 PM [facility] PTH INTACT Specimen Type: SERUM No comment entered. Ordering Provider: KAVIN STORY Report Released Date/Time: Aug 30, 2024 05:36 PM Reporting Lab: [facility] [address] Performing Lab: [address] [address] PTH INTACT 96.0 pg/mL H 8.7-77.1 Sep 03, 2024 04:06 PM [facility] CALCIUM Specimen Type: SERUM No comment entered. Ordering Provider: KAVIN STORY Report Released Date/Time: Aug 30, 2024 05:36 PM Reporting Lab: [facility] [address] Performing Lab: [facility] [address] CALCIUM 9.3 mg/dL 8.5-10.2 Sep 03, 2024 04:06 PM [facility] BASIC METABOLIC PANEL (non-fasting) Specimen Type: SERUM No comment entered. Ordering Provider: KAVIN STORY Report Released Date/Time: Aug 30, 2024 05:36 PM Reporting Lab: [address] [address] Performing Lab: [address] [address] UREA NITROGEN 18 mg/dL 7-25 GLUCOSE 94 mg/dL 65-100 SODIUM 137 mmol/L 135-145 POTASSIUM 4.0 mmol/L 3.5-5.0 CHLORIDE 106 mmol/L 100-110 CO2 23 meq/L 20-30 CREATININE, Serum 0.87 mg/dL 0.50-1.40 eGFR(CKD-EPI 2020) >90 mL/min >60 Aug 10, 2024 02:45 PM [facility] OCCULT BLOOD FIT X1 SCREEN(IN-HOUSE) Specimen Type: FECES No comment entered. Ordering Provider: MAR HANSON Report Released Date/Time: Apr 24, 2024 02:10 PM Reporting Lab: [address] [address] Performing Lab: [address] [address] OCCULT BLOOD (FIT)#1 OF 1 Negative NEG Social History: Smoking Status (Most current) and Tobacco Use (All prior to encounter date) This section includes the most current, and the historical, smoking and tobacco- related health factors from the [place] facility where the Encounter took place. Current Smoking Status This section includes the most current smoking, or tobacco-related health factor, from the [place] facility where the Encounter took place. Date/Time Current Smoking Status Comment Facil ity Aug 03, 2024 01:00 PM VA-TOBACCO NEVER U SED CIGARETTES [facility] Tobacco Use History This section includes a history of the smoking, or tobacco-related health factors, that were collected on or before the date of the Encounter. The data comes from the [place] facility where the Encounter took place. Date/Time Smoking Status/Tobacco Use Comment F acility Aug 03, 2024 01:00 PM DC-TOBACCO NEVER U SED OTHER TYPE [facility] Aug 26, 2023 10:00 AM VA-TOBACCO FORMER USER [place] [facility] [place] [facility] Aug 26, 2023 10:00 AM VA-TOBACCO QUIT 15 YRS OR MORE [place] [facility] [place] [facility] Apr 11, 2022 11:00 AM VA-TOBACCO FORMER USER [place] [facility] [place] [facility] Apr 11, 2022 11:00 AM VA-TOBACCO QUIT 15 YRS OR MORE [facility] Advance Directives: All historical and current Section Date Range: From patient's date of to the date document was created. This section includes ALL of a patient's completed or amended DC Advance and Rescinded Directives. The entries below indicate that a directive exists for the patient, but an actual copy is not included with this document. The data comes from all [place] facilities. Date Advance Directives Provider Source May 16, 2011 ADVANCE DIRECTIVE DISCUSSION TON SARAVIA Sep 27, 2005 ADVANCE DIRECTIVE SHARLENE SIDHU [facility] Sep 10, 2005 ADVANCE DIRECTIVE DISCUSSION [...] the Encounter. The data comes from all [place] treatment facilities. Date/Time Radiology Report Provider Source Sep 23, 2024 11:21 AM FOOT 3 OR MORE VIEWS (RIGHT): ELVIN REYNA [id number] -[id number] M Ex Date: SEP 23, 2024@11:21 Req Phys: GANGA DAVID Loc: [facility] PACT FLOAT PA (Req'g Loc Img Loc: [facility]BUILDING 1 Service: Unknown [place] [facility] [address] (Case [id number] COMPLETE) FOOT 3 OR MORE VIEWS (RIGHT) (RAD Detailed) CPT:35785 Proc Modifiers : RIGHT CPT Modifiers : RT RIGHT SIDE Reason for Study: pre-podiatric evaluation Clinical History: Report Status: Verified Date Reported: SEP 23, 2024 Date Verified: SEP 23, 2024 eZelleron E-Sig:/ES/KRISTYN BERKOWITZ JR Report: Study: Weight-bearing AP, [...] Primary Interpreting Staff: KRISTYN BERKOWITZ JR, Radiologist (Medical Care Manager) /EAKRISTYN BURR JR [facility] Sep 14, 2024 10:33 AM KIDNEY AND BLADDER ULTRASOUND: SHELLYEBERGINGERELVIN Zahra [id number] -1975 M [facility] Date: SEP 14, 2024@10:33 Req Phys: LORETTA HANSON Loc: [facility] PACT 7 MANAGER MOBILITY (Req'g Loc) Img Loc: ULTRASOUND Service: [place] [address] (Case [id number] COMPLETE) ULTRASOUND KIDNEYS (US Detailed) CPT:76907 Reason for Study: follow up (Case 42 COMPLETE) ULTRASOUND URINARY BLADDER (US Detailed) CPT:69735 Clinical History: Some ultrasound tests require a prep. recent stone left ureter, stent removed on 08/03, seeking this to be done six weeks from now. Report Status: Verified Date Reported: SEP 14, 2024 Date Verified: SEP 14, 2024 eZelleron E-Sig:/ES/KRISTYN BERKOWITZ JR Report: Study: Genitourinary ultrasound. [...] Primary Interpreting Staff: KRISTYN BERKOWITZ JR, Radiologist (Medical Care Manager) /KRISTYN VASQUES JR [facility] Encounter Notes: All associated encounter notes This section contains the clinical notes associated to the Encounter. Date/Time Encounter Note(s) Provider Source Sep 02, 2024 01:46 PM GASTROENTEROLOGY NOTE: LOCAL TITLE: GASTROENTEROLOGY INITIAL NOTE STANDARD TITLE: GASTROENTEROLOGY NOTE DATE OF NOTE: SEP 02, 2024@13:46 ENTRY DATE: SEP 02, 2024@13:46:51 AUTHOR: JENNIFER PHELAN COSIGNER: URGENCY: STATUS: COMPLETED GASTROENTEROLOGY INITIAL NOTE Has ADDENDA = GI OUTPATIENT TELEHEALTH/VVC CLINIC PROGRESS NOTE = Patient has provided verbal consent to use VVC for their visit to take place by video outside of the [facility]. We discussed the use of telehealth technology and risks and limitations. The patient has been advised that they have the right to refuse telehealth services. Patient states they are in a safe and private environment suitable for the Telehealth encounter. I am located in [facility]. 2 Patient Identifiers noted. Address/Current location of : At home address in [place]. Current call back phone number: as in [place]. Emergency Contact (in current or nearby location). Contact name and phone number: as in [place]. Surveyed the environment, confirming who was present and that appropriate level of privacy can be maintained. Following confirmation, virtual medical room was locked to maintain privacy. = CONSULT TO GI SERVICE: Heartburn/GERD, Other H/O esophageal strictures, last dialation was Aug 2022, now having bothersome swallowing issues with solids, known to John NEIL. Echo is agreeable to [facility] for GERD management history of BE. Consult states dysphagia consumer loan underwriter confirmed with Echo he is asymptomatic. Telephone triage: Echo denies dysphagia, denies nausea, denies vomiting, denies bloating ,denies GERD or reflux symptoms, is taking PPI, adhering to lifestyle and dietary modifications. has never used tobacco products, does not drink, denies caffeine use. Care coordination: Night Shift Supervisor discussed options for care with . is agreeable to [facility]. Echo had EGD done 09.11.2022 pathology report revealed BE. HISTORY OF PRESENT ILLNESS: Mr. Reyna is a 49 y/o M with class II obesity, fatty liver, hiatal hernia, GERD, esophageal stricture s/p dilation, and Poon's esophagus, who reports that his PCP was concerned about worsening GERD symptoms when he was complaining of chest pain during the timeframe in July when he was undergoing repeated surgeries for his kidney stones. He believes this is all gone now and he thinks his heartburn and reflux symptoms are generally well controlled again on omeprazole 20 mg daily dosing. He had been on ranitidine since his 20's, then switched to omeprazole for a while, then back to famotidine, then presented with what sounds like a food impaction or partial food impaction in August 2022 requiring removal of some food debris and follow- up endoscopy 09/11/22 with esophageal stricture dilation and biopsies that were diagnostic of Poon's mucosa. The actual procedure report is not currently available to me, just the pathology report (see below). He occasionally has mild discomfort in the top of his throat with dry red meat, dry bread, or oatmeal, which resolves with sips of water or seltzer. No concerning weight loss. ACTIVE OUTPATIENT MEDICATIONS: Active Outpatient Medications (including Supplies): Active Outpatient Medications Status 1) AZELASTINE 137MCG/SPRAY 200D NASAL INHL SPRAY 1 SPRAY INTO ACTIVE EACH NOSTRIL ONCE DAILY Indication: FOR SEASONAL RUNNY NOSE 2) CHOLECALCIF 50MCG (D3-2,000UNIT) TAB TAKE ONE TABLET BY ACTIVE MOUTH ONCE DAILY FOR VITAMIN SUPPLEMENTATION Indication: FOR VITAMIN D DEFICIENCY 3) OMEPRAZOLE 20MG EC CAP TAKE TWO CAPSULES BY MOUTH ONCE DAILY ACTIVE (NOTE DOSE) Indication: FOR EXCESSIVE PRODUCTION OF STOMACH ACID PAST MEDICAL HISTORY: 1. Kidney stone 2. Gallbladder polyp 3. Pain in right arm 4. 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 Sleep apnea 7. Overweight 8. GERD - Gastro-Esophageal Reflux Disease ([facility] [id number]) 9. Anxiety ([facility] [id number]) 10. Hyperlipidemia ([facility] [id number]) 11. Fatty liver 12. 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 FAMILY HISTORY (that may place the patient at risk for GI-related diseases): None relevant to GI PHYSICAL EXAM (within limitations of Video Visit): GEN: Alert, appropriate, in no acute distress; breathing comfortably on room air PRIOR TESTING PERTINENT TO THIS CONSULT: GI PROCEDURES: EGD 09/11/22: Duodenum biopsy: Nonspecific chronic duodenitis Stomach biopsy: No pathologic abnormality GE junction at 36 cm: Squamocolumnar junction with intestinal metaplasia (Poon's esophagus), negative for dysplasia ASSESSMENT: 49 y/o M with obesity and fatty liver, with prior diagnoses of GERD, hiatal hernia, esophageal stricture s/p dilation in 09/2022, and Poon's esophagus by GE junction biopsies in 09/2022. No dysplasia on those biopsies. He is currently doing well on omeprazole 20 mg daily with only occasional mild dysphagia symptoms, downplayed from the severity he had in 08/2022. PLAN OF CARE/RECOMMENDATIONS: - We discussed the timing of repeat endoscopy. He does not believe his symptoms warrant urgent endoscopy in the next few months and wishes to not undergo another procedure since he just went through so much recently for his kidney stones. He wishes to wait until likely summer. He is not sure whether his partner will be willing to drive to [place] for the procedure, so he will secure message if he decides he wants it ordered through the [facility]. If he wants instead, due to drive time, to have it done locally, that would likely mean on license of [facility] care EGD order would need to be entered by local [place] PCP. Of note, at the time of endoscopy, it would be recommended to reassess for distal esophageal stricture (and repeat dilation depending on persistence or worsening of any dysphagia at that time), assessment for [place] classification of Poon's esophagus and repeat biopsies as indicated, and take mid-esophageal biopsies to evaluate for eosinophilic esophagitis. I did discuss with the patient that if this procedure were to be done by [facility] referral due to drive time to [place], I would recommend sharing a printout of this consult note with the above outlined endoscopic plan with the feed grinder. - For now, he is doing well on omeprazole 20 mg daily. He does not currently take the 40 mg daily or 20 mg BID dosing. It sounds like his reflux and heartburn symptoms are well-controlled on current 20 mg daily dosing, and that recent chest pains that raised concerns for uncontrolled GERD symptoms may have been periprocedural related to his kidney stone issues. - We discussed his hiatal hernia, as he asked about surgical repair. I would not recommend consulting with a surgeon about this until more is known from repeat endoscopy. On the date of the encounter, I spent 75 minutes on some or all of the following: chart review, history, treatment planning, education and counseling of the patient/family/caregiver, placing orders, communicating with other healthcare providers, and documentation in the electronic health record. RTC on as needed basis, nothing to schedule at present. Alerting KAMLESH Zamarripa: Please can you obtain prior EGD report 09/2022 from [facility] and alert to me for review. All I could find in [place] was pathology result. /es/ JENNIFER PHELAN MD ATTENDING PHYSICIAN Signed: 09/02/2024 21:52 Receipt Acknowledged By: 09/07/2024 16:37 /es/ GEREMIAS NEGRO MSN, RN, CNL [facility] 09/03/2024 10:26 /es/ Loretta Hanson DNP, PALEOLOGY PROFESSOR-BC, CNL Primary Care Nurse Practitioner 09/16/2024 ADDENDUM STATUS: COMPLETED EGD 09/11/22 report reviewed (scanned into [place] now): 2 cm small hiatal hernia. Z-line irregular, biopsied and WATS-3D brushing. Stricture at GE junction, dilated with 18-19-20 mm TTS balloon dilator. Several small < 5 mm sessile gastric body polyps. Random gastric biopsies taken. Normal duodenum, biopsied. Given lack of specific measurements of Poon's, I suspect this was ultra-short segement; would at the least have him undergo EGD in early 2025 for reinspection and biopsy. If he chooses to undergo EGD before that due to dysphagia, would recommend mid-esophageal biopsies to rule out EoE (not evident on distal esophageal biopsies of the irregular Z-line) and consider repeat biopsies/dilation. /roberto/ JENNIFER PHELAN MD ATTENDING PHYSICIAN Signed: 09/16/2024 16:21 JENNIFER PHELAN [place] [facility]
--- OUTSIDE RECORDS SUMMARY | 2024-10-20 10:12 | XMS_ITS | Encounter Summary ---
Author Name [facility] [place] Organization [facility] Address [address] [place] [address] Care Team Providers Care Collar Padder Blindstitch Name Role Phone LORETTA HANSON Primary Care [...] [place] H Aug 05, 2021 01 [id number] ELVIN WALSH PATIENT Selected Encounter This section [...] ADVANCE DIRECTIVE SHARLENE SIDHU [facility] Sep 10, 2005 ADVANCE DIRECTIVE DISCUSSION FRANCE RODRIGEZ [facility] Aug 14, 2004 ADVANCE DIRECTIVE DISCUSSION [facility] [place]
--- OUTSIDE RECORDS SUMMARY | 2024-10-20 10:12 | XMS_ITS | Encounter Summary ---
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 This section includes future appointments and [...] MEDICINE [facility] [place] [facility] Jul 13, 2024 09:00 AM AMBULATORY - MEDICINE [facility] [place] [facility] Jul 23, 2024 11:30 AM AMBULATORY - MEDICINE [facility] [place] [facility] Aug 03, 2024 01:00 PM AMBULATORY - MEDICINE [facility] [place] [facility] Aug 06, 2024 02:30 PM AMBULATORY - MEDICINE [facility] [place] [facility] Aug 14, 2024 11:30 AM AMBULATORY - MEDICINE [facility] [place] [facility] Sep 02, 2024 01:00 PM AMBULATORY [place] SURG[place] [facility] Sep 02, 2024 01:00 PM AMBULATORY - MEDICINE [facility] [place] [facility] Sep 03, 2024 03:00 PM AMBULATORY - MEDICINE [facility] [place] [facility] Sep 14, 2024 10:30 AM AMBULATORY - NONE [facility] [place] [facility] Sep 28, 2024 10:30 AM AMBULATORY - MEDICINE [facility] [place] [facility] Sep 30, 2024 02:30 PM AMBULATORY - MEDICINE [facility] [place] [facility] Oct 05, 2024 03:00 PM AMBULATORY - MEDICINE [facility] [place] [facility] Oct 13, 2024 02:15 PM AMBULATORY - REHAB MEDICIN E [facility] [place] [facility] Oct 15, 2024 10:00 AM AMBULATORY - MEDICINE [facility] [place] [facility] Oct 16, 2024 11:30 AM AMBULATORY - REHAB MEDICIN E [facility] [place] [facility] Oct 19, 2024 04:00 PM AMBULATORY - REHAB MEDICIN E [facility] Oct 20, 2024 09:30 AM [facility] Oct 27, 2024 02:30 PM AMBULATORY - SURGERY [facility] Dec 01, 2024 03:00 PM AMBULATORY - MEDICINE [facility] Active, Pending, and Scheduled Orders This [...] data comes from all [place] treatment facilities. Test Date/Time Test Type Test Details Facility Name Jun 03, 2024 12:30 PM Consult Order DERMATOLOG Y/NHM (OUTPT) Cons Temperer's Choice [facility] Jun 18, 2024 12:00 AM Laboratory - Chemi stry Order DRUGS OF ABUSE URINE (DRUG) SP [facility] Jul 23, 2024 12:00 AM Laboratory - Chemi stry Order PTH INTACT BLOOD (RED-PLAIN) SERUM SP [facility] Lab Results: +/- 30 days [...] Range Comment Jun 05, 2024 02:23 [address] [facility] CT/GC DNA PANEL(IN-HOUSE) Specimen Type: URINE Comment: Test performed on the LifeScribe Genexpert. A negative test results does not exclude the possibility of infection because results may be affected by improper specimen collection, concurrent antibiotic therapy, or the number of organisms in the specimen which may be below the sensitivity of the test. Ordering Provider: MAR HANSON Report Released Date/Time: Jun 05, 2024 02:02 PM Reporting Lab: [facility] [address] [address] Performing Lab: [address] [address] GC PCR NOT DETECTED Not Detected CT PCR NOT DETECTED Not Detected Jun 05, 2024 02:23 PM [facility] MICROSCOPIC AUTOMATED, URINE Specimen Type: URINE Comment: If Glucose = >500 and Ketones are positive, please alert the Physician. Ordering Provider: MAR HANSON Report Released Date/Time: Jun 05, 2024 02:02 PM Reporting Lab: [address] [address] Performing Lab: [address] [address] UA WBC 0-5 /[HPF] 0-5 UA MUCUS FEW /[LPF] Trace UA RBC 11-20 /[HPF] H 0-3 Jun 05, 2024 02:23 PM [facility] URINALYSIS CLEAN CATCH Specimen Type: URINE Comment: If Glucose = >500 and Ketones are positive, please alert the Physician. Ordering Provider: MAR HANSON Report Released Date/Time: Jun 05, 2024 02:02 PM Reporting Lab: [address] [address] Performing Lab: [address] [address] UA COLOR Light-Yellow Yellow UA APPEARANCE Clear [...] Terri ity Aug 26, 2023 10:00 AM [place] FORMER USER [facility] Tobacco Use History This section includes a history of the smoking, or tobacco-related health factors, that were collected on or before the date of the Encounter. The data comes from the [place] facility where the Encounter took place. Date/Time Smoking Status/Tobacco Use Comment F acility Aug 26, 2023 10:00 AM [place]TO[place] QUIT 15 YRS OR MORE [facility] Apr 11, 2022 11:00 AM [place]TOB[place] FORMER USER [facility] Apr 11, 2022 11:00 AM [place] QUIT 15 YRS OR MORE [facility] Advance Directives: All historical and [...] ABDOMEN AND PELVIS WITHOUT CONT.: ELVIN REYNA [id number] -1975 M Exm Date: JUN 05, 2024@14:27 Req Phys: LORETTA HANSON Loc: CWM/NO/PACT 7 (Req'g Loc) Img Loc: NHM/CT Service: Unknown [place] [facility] [place] [facility] [place] [id number] (Case [id number] COMPLETE) CT ABDOMEN AND PELVIS WITHOUT CON(CT Detailed) CPT:08949 Reason for Study: lower abdominal pain Clinical History: h/o kidney stone, having worsening pain Report Status: Verified Date Reported: JUN 07, 2024 Date Verified: JUN 07, 2024 Stereoptician E-Sig: Report: CT ABDOMEN AND PELVIS WITHOUT CONT. HISTORY: lower abdominal pain COMPARISON: 11/28/2091. TECHNIQUE: CT of the abdomen and pelvis with multiplanar reformats was performed at the local [place] facility. 497 images were received by the [place] National Teleradiology Program (NTP) for interpretation. RADIATION [...] made. The result was communicated to Lazarusmariza Nelsonlashaerita on 06/07/2024 at 6:41 PST with read-back verification. READING PHYSICIAN: Rashida Hawk MD -[phone] 06/07/2024 6:[address] [facility] National Teleradiology Program [phone] (For Medical Practitioner Use Only) Attention Patients / Veterans: If you have questions or concerns about these test results, please contact your ordering provider or primary care team. Primary Diagnostic Code: CRITICAL ABNORMALITY Primary Interpreting Staff: RADIOLOGY,OUTSIDE SERVICE, Staff Physician / RADIOLOGY,OUTSIDE SERVICE [facility] Pathology Reports: +/- 30 days of [...] comes from all [place] treatment facilities. Date/Time Pathology Report Provider Source Jun 05, 2024 02:23 PM LR MICROBIOLOGY REPORT: Reporting Lab: [facility] [CLIA# [id number]] [address] [place] [id number] Accession [UID]: [id number] [[id number]] Received: Jun 05, 2024@14:23 Collection sample: URINE CLEAN CATCH Collection date: Jun 05, 2024 14:23 Site/Specimen: URINE Provider: LORETTA HANSON Test(s) ordered: URINE CULTURE(MWROX).......... completed: Jun 08, 2024 09:02 * BACTERIOLOGY FINAL REPORT => Jun 08, 2024 09:02 TECH CODE: [id number] Bacteriology Remark(s): NO GROWTH IN 24 HOURS, FINAL REPORT TO FOLLOW. FINAL AEROBIC REPORT: NO GROWTH =--=--=--=--=--=--=--=--=--= --=--=--=--=--=--=--=--=--=- -=--=--=--=--=--=--=-- Performing Laboratory: Bacteriology Report Performed By: [facility] [CLIA# [id number]] [address] [place] [address] [facility] [place] [facility] Jun 02, 2024 11:29 AM LR SURGICAL PATHOLOGY REPORT: LOCAL TITLE: LR SURGICAL PATHOLOGY REPORT STANDARD TITLE: PATHOLOGY DIAGNOSTIC STUDY REPORT DATE OF NOTE: JUN 02, 2024@11:29:44 ENTRY DATE: JUN 02, 2024@11:29:44 AUTHOR: MAGDALENA STOCKTON MD EXP COSIGNER: URGENCY: STATUS: COMPLETED $APHDR Reporting Lab: [facility] [place] [facility] [CLIA# [id number]] [address] [place] [address] - - - - - - - [...] - - PATHOLOGY REPORT Accession No. [facility] 24 [id number] - - - - [...] - - - - BRIEF CLINICAL HISTORY: 53 Clinicl Hx: 48 year old man [...] - - PATHOLOGY REPORT Accession No. [facility] 24 533 - - - - - - - - - - - - - - - - - - - - - - - - - - - - - - - - - - - - - - - - Gross description: [facility] 25 [id number];;1;Melinda REYNA This is a [facility] case number [facility] [id number]. Received in formalin labeled [...] lower back: Hemangioma, completely excised. CPT code 10018 /roberto/ MAGDALENA STOCKTON MD Board Certified Dermatopathologist Signed Jun 02, 2024@11:29 Performing Laboratory: Surgical Pathology Report Performed By: [facility] [CLIA# [id number]] [address] [place] [address] $FTR - - - - - - [...] - ELVIN REYNA JR STANDARD FORM 515 ID:[id number] SEX:M :1975 AGE: 48 LOC:CWM/NO/GS PCP: Loretta Hanson NP /roberto/ MAGDALENA STOCKTON MD Board Certified Dermatopathologist Signed: 06/02/2024 11:29 MAGDALENA STOCKTON MD [facility] Encounter Notes: All associated encounter notes This section contains the clinical notes associated to the Encounter. Date/Time Encounter Note(s) Provider Source Jun 18, 2024 09:09 AM PODIATRY NOTE: LOCAL TITLE: PODIATRY NOTE STANDARD TITLE: PODIATRY NOTE DATE OF NOTE: JUN 18, 2024@09:09 ENTRY DATE: JUN 18, 2024@09:09:30 AUTHOR: SALAS KONG EXP COSIGNER: URGENCY: STATUS: COMPLETED Podiatry [facility] Follow up Provider: Salas Kong Date: JUN 18, 2024 ELVIN REYNA [address] [place] [address] Jul 48 MALE [id number] PATIENT PHONE - Primary Care: LORETTA HANSON Follow up Visit Concern: Subjective: Patient previously seen for orthotic management and currently happy with current [facility] orthotics doing well but presents today to [...] the nail is flared on both sides. 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 Service connections:Service Connected Disabilities with % Eligibility: [facility] Medical problems active: Active Problem Gallbladder polyp K82.4 03/26/2023 LORETTA HANSON Pain in right arm M79.601 02/21/2023 LORETTA HANSON Poon's esophagus K22.70 09/18/2022 LORETTA HANSON Attention deficit hyperactivity dis 06/25/2022 ELISHA RAHMAN Sleep apnea G47.33 04/12/2022 LORETTA HANSON Overweight E66.3 04/12/2022 LORETTA HANSON GERD - Gastro-Esophageal Reflux Dis 04/11/2022 LORETTA HANSON Anxiety ([facility] [id number]) F41.9 04/11/2022 LORETTA HANSON Hyperlipidemia ([facility] [id number]) E78.5 04/11/2022 LORETTA HANSON Fatty liver K76.0 [...] complete. Please check JLV. FACILITY ALLERGY/ADR -------- [facility] NO KNOWN ALLERGIES [facility] NO KNOWN ALLERGIES [facility] NO KNOWN ALLERGIES [facility] No Known [facility]ergies [facility] Problem focused: Neurovascular status [...] PODIATRY ATTENDING Signed: 06/18/2024 16:41 SALAS KONG [facility]
== END 2024-10-20 09:37 | disposition home or self-care (01) ==
LOC: HO.HGS 09:21
PROVIDERS: PCP Internal Medicine Endocrinology, Diabetes & Metabolism; Referring Provider Internal Medicine Endocrinology, Diabetes & Metabolism; Visit Provider Surgery
DX: M79.89 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ed soft tissue disorders (principal)
CPT/HCPCS: 99204

== ENCOUNTER → 2024-10-20 09:21 | Outpatient (BNVA) | payer OTHER, SELFPAY | PROVIDERS: PCP Internal Medicine Endocrinology, Diabetes & Metabolism; Referring Provider Internal Medicine Endocrinology, Diabetes & Metabolism; Visit Provider Surgery | DX: Z09 Encounter for follow-up examination after completed treatment for conditions other than malignant neoplasm (principal); M79.89 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ed soft tissue disorders | CPT/HCPCS: 99202 ==

== ENCOUNTER 2024-11-22 21:58 | Emergency (ER) | payer OTHER, SELFPAY ==
--- NOTE | 2024-11-22 | ECG_ITS ---
Test Reason : palpitations Blood Pressure : */* mmHG Vent. Rate : 110 BPM Atrial Rate : 110 BPM P-R Int : 162 ms QRS Dur : 76 ms QT Int : 326 ms P-R-T Axes : 31 7 30 degrees QTcB Int : 441 ms Sinus tachycardia Cannot rule out Inferior infarct , age undetermined Abnormal ECG No previous ECGs available Referred By: Generic ED Physician Electronically Signed By: THONY JONES
[2024-11-22 22:22] VITALS: BP 141/101; PULSE 109; RESP 18; TEMP 37.1; O2SAT 96; BMI 37.8
--- NOTE | 2024-11-22 22:54 | ED_ITS ---
HPI - Arrhythmia/Palpitations General Chief Complaint: Arrhythmia/Palpitations Stated Complaint: has heart monitor, palpitations??? Time Seen by Provider: 11/22/24 22:54 Source: patient Mode of arrival: ambulatory Limitations: no limitations History of Present Illness ED Provider: HPI narrative: Patient's history of gastric reflux disease on omeprazole been having palpitation episode for last 1 week been to [facility] 2 times on and had the lab workup done which were normal including TSH placed on holter monitor 2 days ago comes here for similar heart pounding episode which lasted only for few minutes no dizziness no passing out episode no chest pain patient felt his mouth is dry and numbness of the left arm no neck pain patient does have history of anxiety but at this time patient does not feel any anxiety Related Data Home Medications ?Medication ?Instructions ?Recorded ?Confirmed omeprazole 20 mg capsule,delayed 20 mg PO DAILY 10/20/24 10/20/24 release Previous Rx's ?Medication ?Instructions ?Recorded metoprolol tartrate 25 mg tablet 25 mg PO BID #60 tabs 11/23/24 Allergies Allergy/AdvReac Type Severity Reaction Status Date / Time tamsulosin [From Flomax] AdvReac Joint Pain Verified 11/22/24 22:31 warfarin AdvReac Unknown Verified 11/22/24 22:31 Review of Systems Review of Systems: Yes all other systems are reviewed and are negative [facility] Past Medical History Medical History Hiatal hernia Social History Social History Patient Tobacco Use Status: Never used Tobacco Advance Directives: No Advance Directives Information Provided: Yes Physical Exam Vital Signs: Vital Signs: Last Vital Signs Temp 98.8 F 11/22/24 22:22 Pulse 113 H 11/22/24 23:05 Resp 18 11/22/24 22:22 BP 149/88 H 11/22/24 23:05 Pulse Ox 96 11/22/24 22:22 O2 Del Method Room Air 11/22/24 22:22 BMI result Body Mass Index 37.8 Appearance: Alert. Oriented X3. No acute distress. Eyes: No pallor or icterus ENT: Pharynx normal. Oral Mucosa moist Neck: Normal inspection. Neck supple. CVS: Sinus tachycardia with heart rate in 110 range no murmur rub or gallop Pulses normal. Respiratory: No respiratory distress. Equal air entry bilateral, no wheezing/rales/rhonchi Abdomen: Soft and nontender. Bowel sounds are present, no mass palpable, no CVA tenderness Skin: Skin warm and dry. Normal skin color. Normal skin turgor. Extremities: No lower extremity edema. No calf tenderness Neuro: Oriented X 3. No motor deficit. No sensory deficit.No cerebellar signs , cranial nerves II-XII intact Medications Administered Discontinued Medications Generic Name Dose Route Start Last Admin Trade Name Freq PRN Reason Stop Dose Admin Metoprolol Tartrate 25 mg 11/22/24 23:10 11/22/24 23:23 Metoprolol Tartrate 25 Mg Tablet PO 11/22/24 23:11 25 mg ONCE ONE Administration Protocol Medical Decision Making Medical Decision Making MDM Narrative: Patient's sinus tachycardia heart rate increased on standing improved on Valsalva maneuver. Blood pressure on the higher side with start been on Lopressor advised to drink plenty of fluids already has Holter monitor placed previous labs within last 1 week which were done 2 times were negative for acute patient will be following up with molybdenum steamer operator Independent Interpretation I performed an independent interpretation of an: EKG Interpretation: Sinus tachycardia with heart rate 110 beats per minute normal intervals normal axis no acute STT wave changes no acute ischemia Discharge Plan Discharge Clinical Impression: Sinus tachycardia Patient Disposition: Home, Self-Care Instructions: Tachycardia (ED) Additional Instructions: Likely the cause of tachycardia is possible POTS syndrome Drink plenty of fluids Will start on Lopressor 25 mg twice a day for now Follow up with your molybdenum steamer operator to review the Holter report Prescriptions: New metoprolol tartrate 25 mg tablet 25 mg PO BID Qty: 60 0RF No Action omeprazole 20 mg capsule,delayed release(DR/EC) 20 mg PO DAILY Print Language: Croatian
[2024-11-22 23:02] VITALS: BP 145/99; PULSE 107
[2024-11-22 23:04] VITALS: BP 151/94; PULSE 97
[2024-11-22 23:05] VITALS: BP 149/88; PULSE 113
[2024-11-22] MEDS: Metoprolol Tartrate 25 MG TABLET PO (23:23)
[2024-11-23 00:09] VITALS: BP 138/87; PULSE 95; RESP 16; TEMP 36.7; O2SAT 96
[2024-11-23 00:39] VITALS: BP 117/76; PULSE 88; RESP 22; TEMP 36.9; O2SAT 95
[2024-11-23 00:54] VITALS: PULSE 120
[2024-11-23 01:01] VITALS: BP 117/76; PULSE 88; RESP 18; TEMP 36.6; O2SAT 100
== END 2024-11-23 01:03 | disposition home or self-care (01) ==
PROVIDERS: Emergency Provider Internal Medicine; PCP Nurse Practitioner Family
DX: R00.0 Tachycardia, unspecified (principal); R00.2 Palpitations
CPT/HCPCS: 93005; 99283; 99285

== ENCOUNTER → 2024-11-22 22:14 | Outpatient (BNV) | payer OTHER, SELFPAY | PROVIDERS: Emergency Provider Internal Medicine; PCP Nurse Practitioner Family; Visit Provider Internal Medicine | DX: R00.0 Tachycardia, unspecified (principal) | CPT/HCPCS: 93010 ==